=== PATIENT | female | born 1980 | race American Indian/Alaskan Native ===

== ENCOUNTER 2017-10-03 12:25 | Emergency (ER) | payer OTHER ==
--- NOTE | 2017-10-03 12:42 | ER ---
Nurse's Notes [facility] Name: Jodee Rae Age: 37 yrs Sex: Female : 1980 Arrival Date: 10/03/2017 Time: 12:29 Bed Waiting Private MD: None, None Diagnosis: Encounter for screening, unspecified Presentation: 10/03 12:37 Presenting complaint: Patient states: I had a on 09/03 and I want to have the la1 wound checked. Transition of care: patient was not received from another setting of care. Onset of symptoms was October 03, 2017. Initial Sepsis Screen: Does the patient meet any 2 criteria? No. Patient's initial sepsis screen is negative. Does the patient have a suspected source of infection? No. Patient's initial sepsis screen is negative. Care prior to arrival: None. 12:37 Method Of Arrival: Ambulatory la1 12:37 Acuity: GERTRUDIS 5 la1 Historical: - Allergies: 12:38 Lisinopril; cough; la1 12:38 [place] Carbonate; la1 - PMHx: 12:38 Asthma; Bipolar disorder; Depression; Diabetes - IDDM; Hypertension; la1 - Immunization history:: Adult Immunizations up to date. - Social history:: Smoking status: Patient/guardian denies using tobacco. Screenin:39 Abuse screen: Denies threats or abuse. Nutritional screening: No deficits noted. la1 Tuberculosis screening: No symptoms or risk factors identified. Fall Risk None identified. Assessment: 12:38 Reassessment: Patient is alert, oriented x 3, equal unlabored respirations, skin la1 warm/dry/pink. Pain: Denies pain. Derm: wound well approximated without redness swelling or drainage. Vital Signs: 12:38 BP 119 / 81; Pulse 97; Resp 16; Temp 98.1(TE); Pulse Ox 100% on R/A; Weight 87.09 kg; la1 Height 5 ft. 1 in. (154.94 cm); 12:38 Body Mass Index 36.28 (87.09 kg, 154.94 cm) la1 ED Course: 12:29 Patient arrived in ED. mr 12:29 None, None is Private Physician. mr 12:34 Tyrone Joseph PA is PHCP. cp 12:34 Tyrone Sotomayor MD is Attending Physician. cp 12:36 Haleigh Servin FNP-C is PHCP. kb 12:37 Triage completed. la1 12:38 Arm band placed on left wrist. la1 12:39 Patient has correct armband on for positive identification. la1 12:39 No provider procedures requiring assistance completed. Patient did not have IV access la1 during this emergency room visit. Administered Medications: No medications were administered Outcome: 12:39 Medical screen evaluation completed per provider. Patient declined treatment. la1 12:39 Condition: stable 12:39 Instructed on follow up and referral plans. 12:42 Discharge ordered by MD. kb 12:48 Patient left the ED. kb Signatures: Haleigh Servin FNP-C AGRICULTURE WORKER-Ckb Imelda Schmidt mr Liu Pérez, RN RN la1 Tyrone Joseph PA PA cp
--- NOTE | 2017-10-03 12:42 | EDPHYS ---
Physician Documentation [facility] Name: Jodee Rae Age: 37 yrs Sex: Female : 1980 Arrival Date: 10/03/2017 Time: 12:29 Bed Waiting Private MD: None, None ED Physician Tyrone Sotomayor HPI: 10/03 12:40 This 37 yrs old Female presents to ER via Ambulatory with complaints of kb C Section recheck. 12:40 Patient presents to ED for recheck of: surgical incision. The affected area is on the kb suprapubic area. Previous treatment: The patient was initially treated on September 03, 2017, the care was rendered at [facility], Treatment type: The patient's original treatment included incision and closure. Progress: The patient reports excellent improvement in the affected area. There has been resolution, improvement, or non-development of any drainage, fever, pain, redness or swelling. The patient has not experienced similar symptoms in the past. The patient has not recently seen a physician. Pt states her incision from has been bothering her for a while. States it itches and she was worried that it would pop open or that something was wrong so she just wanted to get it looked at. . Historical: - Allergies: 12:38 Lisinopril; cough; la1 12:38 [place] Carbonate; la1 - PMHx: 12:38 Asthma; Bipolar disorder; Depression; Diabetes - IDDM; Hypertension; la1 - Immunization history:: Adult Immunizations up to date. - Social history:: Smoking status: Patient/guardian denies using tobacco. ROS: 12:37 Constitutional: Negative for fever, chills, and weight loss, Cardiovascular: Negative kb for chest pain, palpitations, and edema, Respiratory: Negative for shortness of breath, cough, wheezing, and pleuritic chest pain, Abdomen/GI: Negative for abdominal pain, nausea, vomiting, diarrhea, and constipation, MS/Extremity: Negative for injury and deformity, Neuro: Negative for headache, weakness, numbness, tingling, and seizure. Exam: 12:37 Constitutional: This is a well developed, well nourished patient who is awake, alert, kb and in no acute distress. Head/Face: Normocephalic, atraumatic. Chest/axilla: Normal chest wall appearance and motion. Nontender with no deformity. No lesions are appreciated. Cardiovascular: Regular rate and rhythm with a normal S1 and S2. No gallops, murmurs, or rubs. Normal PMI, no JVD. No pulse deficits. Respiratory: Lungs have equal breath sounds bilaterally, clear to auscultation and percussion. No rales, rhonchi or wheezes noted. No increased work of breathing, no retractions or nasal flaring. Back: No spinal tenderness. No costovertebral tenderness. Full range of motion. MS/ Extremity: Pulses equal, no cyanosis. Neurovascular intact. Full, normal range of motion. Neuro: Awake and alert, GCS 15, oriented to person, place, time, and situation. Cranial nerves II-XII grossly intact. Motor strength 5/5 in all extremities. Sensory grossly intact. Cerebellar exam normal. Normal gait. 12:37 Abdomen/GI: Inspection: scar(s), are noted in the suprapubic area, Bowel sounds: normal, in all quadrants, Palpation: abdomen is soft and non-tender, in all quadrants. 12:37 Skin: Wound recheck: incision noted to suprapubic area. Incision well healed. No drainage, redness, swelling, or warmth noted. . Vital Signs: 12:38 BP 119 / 81; Pulse 97; Resp 16; Temp 98.1(TE); Pulse Ox 100% on R/A; Weight 87.09 kg; la1 Height 5 ft. 1 in. (154.94 cm); 12:38 Body Mass Index 36.28 (87.09 kg, 154.94 cm) la1 MDM: 12:34 Patient medically screened. cp 12:37 Data reviewed: vital signs, nurses notes. Data interpreted: Pulse oximetry: on room air kb is 100 %. Interpretation: normal. Counseling: I had a detailed discussion with the patient and/or guardian regarding: the historical points, exam findings, and any diagnostic results supporting the discharge/admit diagnosis, the need for outpatient follow up, an OB/Gyne specialist, to return to the emergency department if symptoms worsen or persist or if there are any questions or concerns that arise at home. ED course: Educated to follow up with OB that performed . No signs or symptoms of infection noted. . Administered Medications: No medications were administered Disposition: 12:39 Encounter for wound check. kb Disposition: 10/03/17 12:42 Discharged to Home. Impression: Encounter for screening, unspecified. - Condition is Stable. - Medication Reconciliation Form, Thank You Letter, Antibiotic Education, Prescription Opioid Use form. - Follow up: Emergency Department; When: As needed; Reason: Worsening of condition. Follow up: Private Physician; When: 2 - 3 days; Reason: Recheck today's complaints, Continuance of care, Re-evaluation by your physician. Addendum: 10/05/2017 08:53 Co-signature as Attending Physician, Tyrone Sotomayor MD I agree with the assessment and c spicer plan of care. Signatures: Haleigh Servin, GEOPHYSICAL LABORATORY CHIEF-C GEOPHYSICAL LABORATORY CHIEF-Ckb Tyrone Sotomayor MD MD cha Attema, Lee, RN RN la1 Tyrone Joseph PA PA cp
== END 2017-10-03 12:48 | disposition home or self-care (01) ==
LOC: ER 12:25
DX: Z48.00 Encounter for change or removal of nonsurgical wound dressing (principal); I10 Essential (primary) hypertension; Z88.8 Allergy status to other drugs, medicaments and biological substances
CPT/HCPCS: 99281

== ENCOUNTER 2017-10-16 21:36 | Emergency (ER) | payer OTHER ==
[2017-10-16] MEDS ORDERED: NA CHLORIDE 0.9% 1,000 ML ONE (22:12)
[2017-10-16 22:39] LABS: Bicarbonate 25 mEq/L (21-31); Glucose Level 139 mg/dL (65-120); Lipase 22 U/L (22-51); Potassium 3.6 mEq/L (3.6-5.0); Sodium Level 137 mEq/L (135-145)
[2017-10-16 22:43] LABS: Absolute Lymphocytes (CBC) 1.1 K/uL (0.7-4.9); Absolute Monocytes 0.5 K/uL (0.1-1.3); Absolute Neutrophil 4.4 K/uL (1.8-8.0); Basophils % 0.5 % (0-1.3); Eosinophils % 2.1 % (0-4.4); Hematocrit 35.3 % (36.0-45.0); Lymphocytes % 17.9 % (15.3-44.8); MCH 23.3 pg (27.0-35.0); MCV 72.8 fL (80-100); MPV 8.9 fL (7.6-11.3); Monocytes % 7.4 % (3.3-12.3); RBC Red Blood Cell Count 4.85 M/uL (3.86-4.86)
[2017-10-16 22:45] LABS: ALT/SGPT 33 IU/L (10-60); AST/SGOT 34 IU/L (10-42); Albumin 4.2 g/dL (3.2-5.5); Alkaline Phosphatase 63 IU/L (42-121); Amylase Level 43 U/L (28-100); BUN Blood Urea Nitrogen 12 mg/dL (6-20); Bilirubin Direct 0.1 mg/dL (0-0.2); Bilirubin Total 0.4 mg/dL (0.3-1.2); Protein, Total 8.5 g/dL (6.0-8.3)
[2017-10-16 23:10] LABS: Urine Blood NEGATIVE (NEG); Urine Glucose NEGATIVE (NEG); Urine Protein 1+ (NEG); Urine Specific Gravity >1.030 (1.005-1.030); Urine pH 5.5 (5.0-7.0)
--- NOTE | 2017-10-16 23:19 | EDPHYS ---
Physician Documentation [facility] Name: Jodee Rae Age: 37 yrs Sex: Female : 1980 Arrival Date: 10/16/2017 Time: 21:37 Bed 26 Private MD: ED Physician Evan Brown HPI: 10/16 23:14 This 37 yrs old Female presents to ER via Ambulatory with complaints of pm1 Nausea/Vomiting/Diarrhea. 23:14 The patient presents to the emergency department with nausea, vomiting, 1 times since pm1 the onset of symptoms, described as undigested food, diarrhea, Multiple times. Onset: The symptoms/episode began/occurred 2 day(s) ago. Possible causes: bad food exposure, eggs. The symptoms are aggravated by food , The symptoms are alleviated by nothing. Associated signs and symptoms: Pertinent negatives: abdominal pain, dysuria, fever. Severity of symptoms: in the emergency department the symptoms are unchanged. The patient has not experienced similar symptoms in the past. The patient has not recently seen a physician. Patient has been taking some Zofran at home for her nausea. Patient reports onset of symptoms after eating egg salad she had made the day before. 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 - Social history:: Smoking status: Patient/guardian denies using tobacco. ROS: 23:14 Constitutional: Negative for fever, chills, and weight loss, Eyes: Negative for injury, pm1 pain, redness, and discharge, ENT: Negative for injury, pain, and discharge, Neck: Negative for injury, pain, and swelling, Cardiovascular: Negative for chest pain, palpitations, and edema, Respiratory: Negative for shortness of breath, cough, wheezing, and pleuritic chest pain, Back: Negative for injury and pain, : Negative for injury, bleeding, discharge, and swelling, MS/Extremity: Negative for injury and deformity, Skin: Negative for injury, rash, and discoloration, Neuro: Negative for headache, weakness, numbness, tingling, and seizure. 23:14 Abdomen/GI: Positive for nausea, vomiting, and diarrhea, Negative for abdominal pain, black/tarry stool, rectal bleeding. Exam: 23:14 Constitutional: This is a well developed, well nourished patient who is awake, alert, pm1 and in no acute distress. Head/Face: Normocephalic, atraumatic. Eyes: Pupils equal round and reactive to light, extra-ocular motions intact. Lids and lashes normal. Conjunctiva and sclera are non-icteric and not injected. Cornea within normal limits. Periorbital areas with no swelling, redness, or edema. ENT: Nares patent. No nasal discharge, no septal abnormalities noted. Tympanic membranes are normal and external auditory canals are clear. Oropharynx with no redness, swelling, or masses, exudates, or evidence of obstruction, uvula midline. Mucous membranes moist. Neck: Trachea midline, no thyromegaly or masses palpated, and no cervical lymphadenopathy. Supple, full range of motion without nuchal rigidity, or vertebral point tenderness. No Meningismus. Chest/axilla: Normal chest wall appearance and motion. Nontender with no deformity. No lesions are appreciated. Cardiovascular: Regular rate and rhythm with a normal S1 and S2. No gallops, murmurs, or rubs. Normal PMI, no JVD. No pulse deficits. Respiratory: Lungs have equal breath sounds bilaterally, clear to auscultation and percussion. No rales, rhonchi or wheezes noted. No increased work of breathing, no retractions or nasal flaring. 23:14 Back: No spinal tenderness. No costovertebral tenderness. Full range of motion. Skin: Warm, dry with normal turgor. Normal color with no rashes, no lesions, and no evidence of cellulitis. MS/ Extremity: Pulses equal, no cyanosis. Neurovascular intact. Full, normal range of motion. 23:14 Abdomen/GI: Inspection: abdomen appears normal, Bowel sounds: normal, Palpation: abdomen is soft and non-tender. 23:14 Neuro: Orientation: is normal, Motor: is normal, Sensation: is normal, no obvious gross deficits. Vital Signs: 21:42 BP 138 / 84; Pulse 111; Resp 19; Temp 97.0; Pulse Ox 99% on R/A; Weight 86.64 kg; aj Height 5 ft. 1 in. (154.94 cm); 22:20 BP 104 / 83; Pulse 106; Resp 18; Pulse Ox 100% on R/A; mt 22:51 BP 111 / 79; Pulse 100; Resp 18; Pulse Ox 100% on R/A; mt 23:36 BP 128 / 96; Pulse 99; Resp 16; Pulse Ox 99% on R/A; kr2 21:42 Body Mass Index 36.09 (86.64 kg, 154.94 cm) aj MDM: 22:20 Patient medically screened. pm1 23:14 Data reviewed: vital signs. Data interpreted: Pulse oximetry: on room air is 100 %. pm1 Interpretation: normal. Counseling: I had a detailed discussion with the patient and/or guardian regarding: the historical points, exam findings, and any diagnostic results supporting the discharge/admit diagnosis, lab results, the need for outpatient follow up, to return to the emergency department if symptoms worsen or persist or if there are any questions or concerns that arise at home. 10/16 22:07 Order name: Amylase, Serum; Complete Time: 23:13 pm1 10/16 22:07 Order name: Basic Metabolic Panel; Complete Time: 23:13 pm10/16 22:07 Order name: CBC with Diff; Complete Time: 23:13 pm1 10/16 22:07 Order name: Creatinine for Radiology; Complete Time: 23:13 pm10/16 22:07 Order name: Hepatic Function; Complete Time: 23:13 pm10/16 22:07 Order name: Lipase; Complete Time: 23:13 pm10/16 22:07 Order name: Urine Test (obtain specimen); Complete Time: 22:19 pm10/16 22:07 Order name: IV Saline Lock; Complete Time: 22:20 pm10/16 22:07 Order name: Labs collected and sent; Complete Time: 22:20 pm1 10/16 22:07 Order name: Urine Dipstick-Ancillary (obtain specimen); Complete Time: 22:19 pm10/16 22:23 Order name: Urine Dipstick--Ancillary (enter results); Complete Time: 23:13 rg2 10/16 22:24 Order name: Urine --Ancillary (enter results); Complete Time: 23:13 rg2 Administered Medications: 22:25 Drug: NS 0.9% 1000 ml Route: IV; Rate: 1000 ml; Site: right antecubital; kr2 23:34 Follow up: Response: No adverse reaction; IV Status: Completed infusion kr2 Disposition: 10/17 00:32 Co-signature as Attending Physician, Marcial Hawkins PULVI MIXER OPERATOR I agree with the assessment and tw4 plan of care. Disposition: 10/16/17 23:18 Discharged to Home. Impression: Diarrhea, unspecified, Nausea and vomiting. - Condition is Stable. - Discharge Instructions: Food Choices to Help Relieve Diarrhea, Adult, Diarrhea, Food Poisoning, Nausea and Vomiting, Viral Gastroenteritis. - Prescriptions for promethazine 25 mg Oral Tablet - take 1 tablet by ORAL route every 6 hours As needed; 20 tablet. - Medication Reconciliation Form, Thank You Letter form. - Follow up: Emergency Department; When: As needed; Reason: Worsening of condition. Follow up: Private Physician; When: 2 - 3 days; Reason: Recheck today's complaints, Continuance of care, Re-evaluation by your physician. - Problem is new. - Symptoms have improved. Signatures: Dispatcher [employer] EDMS Deanna Finch RN RN aj Marinas, Patrick, NP PULVI MIXER OPERATOR pm1 Adry Bunch RN RN kr2 Evan Brown MD MD tw4 Corrections: (The following items were deleted from the chart) 10/16 23:37 23:18 10/16/2017 23:18 Discharged to Home. Impression: Diarrhea, unspecified; Nausea kr2 and vomiting. Condition is Stable. Forms are Medication Reconciliation Form, Thank You Letter, Antibiotic Education, Prescription Opioid Use. Follow up: Emergency Department; When: As needed; Reason: Worsening of condition. Follow up: Private Physician; When: 2 - 3 days; Reason: Recheck today's complaints, Continuance of care, Re-evaluation by your physician. Problem is new. Symptoms have improved. pm1
--- NOTE | 2017-10-16 23:19 | ER ---
Nurse's Notes [facility] Name: Jodee Rae Age: 37 yrs Sex: Female : 1980 Arrival Date: 10/16/2017 Time: 21:37 Bed 26 Private MD: Diagnosis: Diarrhea, unspecified;Nausea and vomiting Presentation: 10/16 21:41 Presenting complaint: Patient states: N/V/D for 2 days. Transition of care: patient was aj not received from another setting of care. Onset of symptoms was October 15, 2017. Care prior to arrival: None. 21:41 Method Of Arrival: Ambulatory aj 21:41 Acuity: GERTRUDIS 3 aj 21:53 Initial Sepsis Screen: Does the patient meet any 2 criteria? No. Patient's initial kr2 sepsis screen is negative. Does the patient have a suspected source of infection? No. Patient's initial sepsis screen is negative. Triage Assessment: 21:42 General: Appears in no apparent distress. comfortable, Behavior is calm, cooperative, aj appropriate for age. Pain: Denies pain. Neuro: Level of Consciousness is awake, alert, obeys commands, Oriented to person, place, time, situation, Appropriate for age. Respiratory: Airway is patent Respiratory effort is even, unlabored, Respiratory pattern is regular, symmetrical. GI: Reports diarrhea, nausea, vomiting. Derm: Skin is intact, is healthy with good turgor, Skin is pink, warm \T\ dry. normal. 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 - Social history:: Smoking status: Patient/guardian denies using tobacco. Screenin:52 Abuse screen: Denies threats or abuse. Denies injuries from another. Nutritional kr2 screening: No deficits noted. Tuberculosis screening: No symptoms or risk factors identified. Fall Risk None identified. Assessment: 21:51 General: Appears in no apparent distress. comfortable, well groomed, well developed, kr2 well nourished, Behavior is calm, cooperative. Pain: Denies pain. Neuro: Level of Consciousness is awake, alert, obeys commands, Oriented to person, place, time, situation, Appropriate for age. Cardiovascular: Reports fatigue, Capillary refill < 3 seconds in bilateral fingers Patient's skin is warm and dry. Respiratory: Airway is patent Respiratory effort is even, unlabored, Respiratory pattern is regular, symmetrical. GI: Abdomen is flat, non-distended, Abd is soft and non tender X 4 quads. Reports diarrhea, nausea, vomiting. : No signs and/or symptoms were reported regarding the genitourinary system. EENT: Oral mucosa is moist. Derm: Skin is intact, is healthy with good turgor, Skin is dry, Skin is pale, Skin temperature is warm. 23:34 Reassessment: Patient appears in no apparent distress at this time. Patient and/or kr2 family updated on plan of care and expected duration. Pain level reassessed. Patient is alert, oriented x 3, equal unlabored respirations, skin warm/dry/pink. Patient denies pain at this time. Patient states feeling better. Vital Signs: 21:42 BP 138 / 84; Pulse 111; Resp 19; Temp 97.0; Pulse Ox 99% on R/A; Weight 86.64 kg; aj Height 5 ft. 1 in. (154.94 cm); 22:20 BP 104 / 83; Pulse 106; Resp 18; Pulse Ox 100% on R/A; mt 22:51 BP 111 / 79; Pulse 100; Resp 18; Pulse Ox 100% on R/A; mt 23:36 BP 128 / 96; Pulse 99; Resp 16; Pulse Ox 99% on R/A; kr2 21:42 Body Mass Index 36.09 (86.64 kg, 154.94 cm) ED Course: 21:37 Patient arrived in ED. ds1 21:42 Triage completed. aj 21:42 Arm band placed on right wrist. Patient placed in an exam room. aj 21:51 Adry Bunch, RN is Primary Nurse. kr2 21:53 Patient has correct armband on for positive identification. Bed in low position. Call kr2 light in reach. Side rails up X 1. Pulse ox on. NIBP on. Door closed. Warm blanket given. Head of bed elevated. 21:58 Marcial Hawkins NP is PHCP. pm1 21:58 Evan Brown MD is Attending Physician. pm1 22:20 Inserted saline lock: 20 gauge in right antecubital area, using aseptic technique. kr2 Blood collected. 23:34 No provider procedures requiring assistance completed. IV discontinued, intact, kr2 bleeding controlled, No redness/swelling at site. Pressure dressing applied. Administered Medications: 22:25 Drug: NS 0.9% 1000 ml Route: IV; Rate: 1000 ml; Site: right antecubital; kr2 23:34 Follow up: Response: No adverse reaction; IV Status: Completed infusion kr2 Outcome: 23:18 Discharge ordered by . pm1 23:36 Discharged to home ambulatory. kr2 23:36 Condition: good 23:36 Discharge instructions given to patient, Instructed on discharge instructions, follow up and referral plans. medication usage, Demonstrated understanding of instructions, follow-up care, medications, Prescriptions given X 1. 23:37 Patient left the ED. kr2 Signatures: Deanna Finch RN RN Mary Parada ds1 Marcial Hawkins NP SHEET METAL WORKER APPRENTICE pm1 Zoraida Churchill mt, Karey, RN RN kr2
== END 2017-10-16 23:37 | disposition home or self-care (01) ==
LOC: ER 21:36
DX: R19.7 Diarrhea, unspecified (principal); I10 Essential (primary) hypertension; E11.9 Type 2 diabetes mellitus without complications; Z79.4 Long term (current) use of insulin; Z88.8 Allergy status to other drugs, medicaments and biological substances
CPT/HCPCS: 36415; 80048; 80076; 81003; 81025; 82150; 83690; 85025; 96360; 99284; J7030

== ENCOUNTER 2018-03-01 20:30 | Emergency (ER) | payer OTHER ==
--- NOTE | 2018-03-01 21:14 | EDPHYS ---
Physician Documentation [facility] Name: Jodee Rae Age: 37 yrs Sex: Female : 1980 Arrival Date: 03/01/2018 Time: 20:33 Bed 23 Private MD: ED Physician Tyrone Sotomayor HPI: 03/01 21:16 This 37 yrs old Female presents to ER via Ambulatory with complaints of snw Shortness Of Breath. 21:16 The patient has shortness of breath during emotionally upset. Onset: The snw symptoms/episode began/occurred suddenly, at 17:30. Duration: The symptoms are continuous, but are steadily getting better. The patient's shortness of breath. Associated signs and symptoms: Pertinent positives: shortness of breath, panting. Severity of symptoms: At their worst the symptoms were moderate severe. The patient has experienced a previous episode, and the symptoms today are exactly the same. last week per PCP. Pt states after her child was born she had episodes of panic. States those episodes just went away. States today she was "thinking too much" and she started to get short of breath and was panting. On my arrival to the room she states she is back to normal and is doing okay. States she was having a panic attack. Declines FSBS as she just ate and has not taken her glucophage. Offered dose of glucophage and pt states she has it at home.. 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 mg2 Historical: - Allergies: 20:45 Lisinopril; cough; ak1 20:45 [place] Carbonate; ak1 - Home Meds: 20:45 metformin 1,000 mg Oral tab 1 tab 2 times per day [Active]; gabapentin 300 mg oral cap ak1 1 cap 3 times per day [Active]; hydroxyzine HCl 25 mg Oral tab 1 tab 2 times daily [Active]; niefpine [Active]; Iron CR Oral [Active]; Naproxen Oral [Active]; queitapine [Active]; loratadine 10 mg oral tab [Active]; Lantus 34 units daily Sub-Q [Active]; - PMHx: 20:45 Asthma; Bipolar disorder; Depression; Diabetes - IDDM; Hypertension; ak1 - PSHx: 20:45 ; ak1 - Immunization history:: Adult Immunizations unknown. - Social history:: Smoking status: Patient/guardian denies using tobacco. - Ebola Screening: : No symptoms or risks identified at this time. ROS: 21:14 Constitutional: Negative for fever, chills, and weight loss, Eyes: Negative for injury, snw pain, redness, and discharge, ENT: Negative for injury, pain, and discharge, Neck: Negative for injury, pain, and swelling, Cardiovascular: Negative for chest pain, palpitations, and edema, Respiratory: Negative for shortness of breath, cough, wheezing, and pleuritic chest pain, Abdomen/GI: Negative for abdominal pain, nausea, vomiting, diarrhea, and constipation, Back: Negative for injury and pain, : Negative for injury, bleeding, discharge, and swelling, MS/Extremity: Negative for injury and deformity, Skin: Negative for injury, rash, and discoloration, Neuro: Negative for headache, weakness, numbness, tingling, and seizure. 21:14 Psych: Positive for anxiety, panic attacks. Exam: 21:14 Constitutional: This is a well developed, well nourished patient who is awake, alert, snw and in no acute distress. Head/Face: Normocephalic, atraumatic. Eyes: Pupils equal round and reactive to light, extra-ocular motions intact. Lids and lashes normal. Conjunctiva and sclera are non-icteric and not injected. Cornea within normal limits. Periorbital areas with no swelling, redness, or edema. ENT: Nares patent. No nasal discharge, no septal abnormalities noted. Tympanic membranes are normal and external auditory canals are clear. Oropharynx with no redness, swelling, or masses, exudates, or evidence of obstruction, uvula midline. Mucous membranes moist. Neck: Trachea midline, no thyromegaly or masses palpated, and no cervical lymphadenopathy. Supple, full range of motion without nuchal rigidity, or vertebral point tenderness. No Meningismus. Chest/axilla: Normal chest wall appearance and motion. Nontender with no deformity. No lesions are appreciated. Cardiovascular: Regular rate and rhythm with a normal S1 and S2. No gallops, murmurs, or rubs. Normal PMI, no JVD. No pulse deficits. Respiratory: Lungs have equal breath sounds bilaterally, clear to auscultation and percussion. No rales, rhonchi or wheezes noted. No increased work of breathing, no retractions or nasal flaring. Abdomen/GI: Soft, non-tender, with normal bowel sounds. No distension or tympany. No guarding or rebound. No evidence of tenderness throughout. Back: No spinal tenderness. No costovertebral tenderness. Full range of motion. Skin: Warm, dry with normal turgor. Normal color with no rashes, no lesions, and no evidence of cellulitis. MS/ Extremity: Pulses equal, no cyanosis. Neurovascular intact. Full, normal range of motion. Neuro: Awake and alert, GCS 15, oriented to person, place, time, and situation. Cranial nerves II-XII grossly intact. Motor strength 5/5 in all extremities. Sensory grossly intact. Cerebellar exam normal. Normal gait. Psych: Awake, alert, with orientation to person, place and time. Behavior, mood, and affect are within normal limits. Vital Signs: 20:45 BP 140 / 95; Pulse 95; Resp 18; Temp 98; Pulse Ox 97% on R/A; Weight 90.72 kg (R); ak1 Height 5 ft. 1 in. (154.94 cm); Pain 0/10; 21:29 BP 130 / 90; Pulse 90; Resp 18; Pulse Ox 100% on R/A; Pain 0/10; mg2 20:45 Body Mass Index 37.79 (90.72 kg, 154.94 cm) ak1 MDM: 20:49 Patient medically screened. bre 21:15 Data reviewed: vital signs, nurses notes. Data interpreted: Pulse oximetry: on room air snw is 97 %. Interpretation: normal. Counseling: I had a detailed discussion with the patient and/or guardian regarding: the historical points, exam findings, and any diagnostic results supporting the discharge/admit diagnosis, the presence of at least one elevated blood pressure reading (>120/80) during this emergency department visit, the need for outpatient follow up, to return to the emergency department if symptoms worsen or persist or if there are any questions or concerns that arise at home. Special discussion: I have referred the patient to see his PCP for further evaluation of high blood pressure. Based on the history and exam findings, there is no indication for further emergent testing or inpatient evaluation. I discussed with the patient/guardian the need to see the primary care provider for further evaluation of the symptoms. I discussed with the patient/guardian the need to see the psychiatrist for further evaluation of the symptoms. Administered Medications: No medications were administered Disposition: 03/02 07:53 Co-signature as Attending Physician, Tyrone Sotomayor MD I agree with the assessment and bre plan of care. Disposition: 03/01/18 21:13 Discharged to Home. Impression: Panic disorder [episodic paroxysmal anxiety] without agoraphobia. - Condition is Stable. - Discharge Instructions: Panic Attacks. - Medication Reconciliation Form, Thank You Letter, Antibiotic Education, Prescription Opioid Use form. - Follow up: Private Physician; When: 2 - 3 days; Reason: Recheck today's complaints, Continuance of care, Re-evaluation by your physician. Follow up: Emergency Department; When: As needed; Reason: Worsening of condition. Signatures: Tyrone Sotomayor MD MD cha Therrien, Shelly, WHEEL INSTALLER-C WHEEL INSTALLER-Csnw Radha Spann RN RN ak1 Juan Manuel Fields RN RN mg2 Corrections: (The following items were deleted from the chart) 03/01 21:29 21:13 03/01/2018 21:13 Discharged to Home. Impression: Panic disorder [episodic mg2 paroxysmal anxiety] without agoraphobia. Condition is Stable. Forms are Medication Reconciliation Form, Thank You Letter, Antibiotic Education, Prescription Opioid Use. Follow up: Private Physician; When: 2 - 3 days; Reason: Recheck today's complaints, Continuance of care, Re-evaluation by your physician. Follow up: Emergency Department; When: As needed; Reason: Worsening of condition. snw
--- NOTE | 2018-03-01 21:14 | ER ---
Nurse's Notes [facility] Name: Jodee Rae Age: 37 yrs Sex: Female : 1980 Arrival Date: 03/01/2018 Time: 20:33 Bed 23 Private MD: Diagnosis: Panic disorder [episodic paroxysmal anxiety] without agoraphobia Presentation: 03/01 20:41 Presenting complaint: states: anxiety attacks since august 2017. pt refuses to ak1 talk in triage. pt c/o SOB with anxiety attacks at 1700 today, no resp distress noted in triage. Transition of care: patient was not received from another setting of care. Onset of symptoms is unknown. Risk Assessment: Do you want to hurt yourself or someone else? Patient reports no desire to harm self or others. Initial Sepsis Screen: Does the patient meet any 2 criteria? No. Patient's initial sepsis screen is negative. Does the patient have a suspected source of infection? No. Patient's initial sepsis screen is negative. Care prior to arrival: None. 20:41 Method Of Arrival: Ambulatory ak1 20:41 Acuity: GERTRUDIS 3 ak1 Triage Assessment: 21:29 General: Appears in no apparent distress. Respiratory: Reports shortness of breath mg2 Onset: The symptoms/episode began/occurred gradually, the patient has mild shortness of breath. 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 mg2 Historical: - Allergies: 20:45 Lisinopril; cough; ak1 20:45 [place] Carbonate; ak1 - Home Meds: 20:45 metformin 1,000 mg Oral tab 1 tab 2 times per day [Active]; gabapentin 300 mg oral cap ak1 1 cap 3 times per day [Active]; hydroxyzine HCl 25 mg Oral tab 1 tab 2 times daily [Active]; niefpine [Active]; Iron CR Oral [Active]; Naproxen Oral [Active]; queitapine [Active]; loratadine 10 mg oral tab [Active]; Lantus 34 units daily Sub-Q [Active]; - PMHx: 20:45 Asthma; Bipolar disorder; Depression; Diabetes - IDDM; Hypertension; ak1 - PSHx: 20:45 ; ak1 - Immunization history:: Adult Immunizations unknown. - Social history:: Smoking status: Patient/guardian denies using tobacco. - Ebola Screening: : No symptoms or risks identified at this time. Screenin:27 Abuse screen: Denies threats or abuse. Denies injuries from another. Nutritional mg2 screening: No deficits noted. Tuberculosis screening: No symptoms or risk factors identified. Fall Risk None identified. Assessment: 21:26 General: Appears in no apparent distress. comfortable, Behavior is calm, cooperative. mg2 Pain: Denies pain. Neuro: Level of Consciousness is awake, alert, obeys commands, Oriented to person, place, time, situation. Cardiovascular: Capillary refill < 3 seconds Patient's skin is warm and dry. Rhythm is regular. Respiratory: Airway is patent Respiratory effort is even, unlabored. GI: No signs and/or symptoms were reported involving the gastrointestinal system. : No signs and/or symptoms were reported regarding the genitourinary system. EENT: No signs and/or symptoms were reported regarding the EENT system. Derm: Skin is intact, Skin is pink, warm \T\ dry. normal. Musculoskeletal: No signs and/or symptoms reported regarding the musculoskeletal system. 21:28 Respiratory: Breath sounds are clear. mg2 Vital Signs: 20:45 BP 140 / 95; Pulse 95; Resp 18; Temp 98; Pulse Ox 97% on R/A; Weight 90.72 kg (R); ak1 Height 5 ft. 1 in. (154.94 cm); Pain 0/10; 21:29 BP 130 / 90; Pulse 90; Resp 18; Pulse Ox 100% on R/A; Pain 0/10; mg2 20:45 Body Mass Index 37.79 (90.72 kg, 154.94 cm) ak1 ED Course: 20:33 Patient arrived in ED. am2 20:42 Triage completed. ak1 20:45 Arm band placed on Patient placed in an exam room, on a stretcher, Patient notified of ak1 wait time. 20:48 Tyrone Sotomayor MD is Attending Physician. [facility] 20:49 Marion Stone FNP-C is [facility]. snw 21:16 Juan Manuel Fields, FRANKIE is Primary Nurse. mg2 21:27 No provider procedures requiring assistance completed. Patient did not have IV access mg2 during this emergency room visit. 21:29 Patient has correct armband on for positive identification. mg2 Administered Medications: No medications were administered Outcome: 21:13 Discharge ordered by . snw 21:27 Discharged to home ambulatory. mg2 21:27 Condition: good 21:27 Discharge instructions given to patient, Instructed on discharge instructions, follow up and referral plans. Demonstrated understanding of instructions, follow-up care. 21:29 Patient left the ED. mg2 Signatures: Tyrone Sotomayor MD MD cha Therrien, Shelly, TRAFFIC SAFETY ADMINISTRATOR-C TRAFFIC SAFETY ADMINISTRATOR-Csnw Radha Spann, RN RN [email or web address] Deanna Mari Michele, RN RN mg2
== END 2018-03-01 21:29 | disposition home or self-care (01) ==
LOC: ER 20:30
DX: F41.0 Panic disorder [episodic paroxysmal anxiety] (principal); I10 Essential (primary) hypertension; E11.9 Type 2 diabetes mellitus without complications; J45.909 Unspecified asthma, uncomplicated; F31.9 Bipolar disorder, unspecified; Z88.8 Allergy status to other drugs, medicaments and biological substances
CPT/HCPCS: 99281

== ENCOUNTER 2018-10-04 12:19 | Emergency (ER) | payer OTHER ==
--- OUTSIDE RECORDS SUMMARY | 2018-10-04 12:21 | XMS REPORT ---
:1980 [facility] [address] [place] [address] Care Team Providers Name Role Phone Unavailable Unavailable Unavailable Problems This patient has no known problems. Allergies, Adverse Reactions, Alerts This patient has no known allergies or adverse reactions. Medications This patient has no known medications.
--- NOTE | 2018-10-04 12:22 | ER ---
Nurse's Notes [facility] Name: Jodee Rae Age: 38 yrs Sex: Female : 1980 Arrival Date: 10/04/2018 Time: 12:19 Bed Waiting Private MD: Diagnosis: ED Course: 10/04 12:19 Patient arrived in ED. as 12:22 John Langley MD is Attending Physician. aa5 Administered Medications: No medications were administered Outcome: 12:22 Patient left the ED. aa5 Signatures: Zaira Garsia Audri, RN RN aa5
== END 2018-10-04 12:22 | disposition left against medical advice (07) ==
LOC: ER 12:19
DX: Z53.21 Procedure and treatment not carried out due to patient leaving prior to being seen by health care provider (principal)

== ENCOUNTER 2018-10-27 23:14 | Emergency (ER) | payer OTHER ==
--- OUTSIDE RECORDS SUMMARY | 2018-10-27 23:16 | XMS REPORT ---
:1980 [facility] [address] [place] [address] Dr. Solorzano. [address] [place] [id number] Care Team Providers Name Role Phone Unavailable Unavailable Unavailable Problems This patient has no known problems. Allergies, Adverse Reactions, Alerts This patient has no known allergies or adverse reactions. Medications This patient has no known medications.
--- NOTE | 2018-10-28 00:46 | ER ---
Nurse's Notes [facility] Name: Jodee Rae Age: 38 yrs Sex: Female : 1980 Arrival Date: 10/27/2018 Time: 23:16 Bed 8 Private MD: Diagnosis: Otitis externa in other diseases classified elsewhere, left ear;Otitis media, unspecified, left ear Presentation: 10/27 23:28 Presenting complaint: Patient states: My right ear started hurting today. It feels like ed1 it is clogged up. I called my doctor but they couldn't see me until tomorrow so I came here. Transition of care: patient was not received from another setting of care. Onset of symptoms was October 27, 2018. Risk Assessment: Do you want to hurt yourself or someone else? Patient reports no desire to harm self or others. Initial Sepsis Screen: Does the patient meet any 2 criteria? No. Patient's initial sepsis screen is negative. Does the patient have a suspected source of infection? No. Patient's initial sepsis screen is negative. Care prior to arrival: None. 23:28 Method Of Arrival: Ambulatory ed1 23:28 Acuity: GERTRUDIS 4 ed1 Triage Assessment: 23:31 General: Appears uncomfortable, Behavior is calm, cooperative, Pt eating during triage. ed1 Pain: Complains of pain in right ear Pain currently is 7 out of 10 on a pain scale. EENT: Reports pain in right ear when swallowing. 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 ed1 Historical: - Allergies: 23:31 Lisinopril; cough; ed1 23:31 [place] Carbonate; ed1 - Home Meds: 23:31 metformin 1,000 mg Oral tab 1 tab 2 times per day [Active]; gabapentin 300 mg Oral cap ed1 1 cap 3 times per day [Active]; hydroxyzine HCl 25 mg Oral tab 1 tab 2 times daily [Active]; Levemir 100 unit/mL subcutaneous soln 80 unit daily [Active]; Seroquel 200 mg Oral tab 1 tab nightly [Active]; citalopram oral once daily [Active]; - PMHx: 23:31 Asthma; Bipolar disorder; Depression; Diabetes - IDDM; Hypertension; ed1 - PSHx: 23:31 ; ed1 - Immunization history:: Adult Immunizations up to date. - Social history:: Smoking status: Patient uses tobacco products, denies chronic smoking, but will smoke occasionally. - Ebola Screening: : Patient negative for fever greater than or equal to 101.5 degrees Fahrenheit, and additional compatible Ebola Virus Disease symptoms Patient denies exposure to infectious person Patient denies travel to an Ebola-affected area in the 21 days before illness onset No symptoms or risks identified at this time. Screenin/23 00:16 Abuse screen: Denies threats or abuse. Denies injuries from another. Nutritional ak1 screening: No deficits noted. Tuberculosis screening: No symptoms or risk factors identified. Fall Risk None identified. Assessment: 00:18 General: Appears in no apparent distress. Behavior is calm, cooperative. Pain: ak1 Complains of pain in right ear. Neuro: No deficits noted. Cardiovascular: No deficits noted. Respiratory: No deficits noted. GI: No signs and/or symptoms were reported involving the gastrointestinal system. : No signs and/or symptoms were reported regarding the genitourinary system. EENT: Reports pain in right ear since today. pt used her sister's ear drops that decreased the pain "a little, but clogged up my ear." pt denies taking any OTC medications. pt stated she called her PCP who could not see her until . Derm: No signs and/or symptoms reported regarding the dermatologic system. Musculoskeletal: No signs and/or symptoms reported regarding the musculoskeletal system. 00:55 Reassessment: Patient appears in no apparent distress at this time. No changes from ak1 previously documented assessment. Patient and/or family updated on plan of care and expected duration. Pain level reassessed. Patient is alert, oriented x 3, equal unlabored respirations, skin warm/dry/pink. pt waiting on mother to come pick her up. Vital Signs: 10/27 23:31 BP 147 / 71; Pulse 93; Resp 18; Temp 97.9(TE); Pulse Ox 96% on R/A; Weight 90.72 kg; ed1 Height 5 ft. 1 in. (154.94 cm); Pain 7/10; 23:31 Body Mass Index 37.79 (90.72 kg, 154.94 cm) ed1 ED Course: 23:16 Patient arrived in ED. es 23:29 Triage completed. ed1 23:31 Arm band placed on right wrist. ed1 05/ 00:14 Tyrone Joseph PA is PHCP. cp 00:14 John Langley MD is Attending Physician. cp 00:16 Radha Spann, RN is Primary Nurse. ak1 00:16 Patient has correct armband on for positive identification. ak1 00:20 No provider procedures requiring assistance completed. ak1 00:45 Brigida Jorgensen MD is Referral Physician. cp 01:06 Patient did not have IV access during this emergency room visit. ak1 Administered Medications: 00:53 Drug: Ibuprofen 800 mg Route: PO; ak1 00:54 Follow up: Response: No adverse reaction; Medication administered at discharge. ak1 00:53 Drug: Cipro 500 mg Route: PO; ak1 00:54 Follow up: Response: No adverse reaction; Medication administered at discharge. ak1 00:54 Drug: Tylenol #3 (300 mg-30 mg) 2 tabs Route: PO; ak1 00:54 Follow up: Response: No adverse reaction; Medication administered at discharge. ak1 Outcome: 00:46 Discharge ordered by MD. cp 00:56 Discharged to home ambulatory, with family. ak1 00:56 Condition: good 00:56 Discharge instructions given to patient, Instructed on discharge instructions, follow up and referral plans. no drinking with medication, no driving heavy equipment, medication usage, Demonstrated understanding of instructions, follow-up care, medications, Prescriptions given X 4. 01:06 Patient left the ED. ak1 Signatures: Brenda Madison Erika, RN RN ed1 Radha Spann RN RN ak1 Tyrone Joseph PA PA cp
--- NOTE | 2018-10-28 00:46 | EDPHYS ---
Physician Documentation [facility] Name: Jodee Rae Age: 38 yrs Sex: Female : 1980 Arrival Date: 10/27/2018 Time: 23:16 Bed 8 Private MD: ED Physician John Langlye HPI: 10/28 00:39 This 38 yrs old Female presents to ER via Ambulatory with complaints of Ear cp Pain. 00:39 The patient presents with pain, that is acute, swelling, tenderness. The complaints cp affect the left ear. Onset: The symptoms/episode began/occurred today. Modifying factors: the symptoms are aggravated by pulling on ears. Associated signs and symptoms: Pertinent negatives: fever, lightheadedness, sinus trouble, sore throat, vertigo, vomiting. Severity of symptoms: in the emergency department the symptoms are unchanged despite home interventions. 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 23:31 LMP 08/2018 ed1 Historical: - Allergies: 23:31 Lisinopril; cough; ed1 23:31 [place] Carbonate; ed1 - Home Meds: 23:31 metformin 1,000 mg Oral tab 1 tab 2 times per day [Active]; gabapentin 300 mg Oral cap ed1 1 cap 3 times per day [Active]; hydroxyzine HCl 25 mg Oral tab 1 tab 2 times daily [Active]; Levemir 100 unit/mL subcutaneous soln 80 unit daily [Active]; Seroquel 200 mg Oral tab 1 tab nightly [Active]; citalopram oral once daily [Active]; - PMHx: 23:31 Asthma; Bipolar disorder; Depression; Diabetes - IDDM; Hypertension; ed1 - PSHx: 23:31 ; ed1 - Immunization history:: Adult Immunizations up to date. - Social history:: Smoking status: Patient uses tobacco products, denies chronic smoking, but will smoke occasionally. - Ebola Screening: : Patient negative for fever greater than or equal to 101.5 degrees Fahrenheit, and additional compatible Ebola Virus Disease symptoms Patient denies exposure to infectious person Patient denies travel to an Ebola-affected area in the 21 days before illness onset No symptoms or risks identified at this time. ROS: 10/28 00:40 Eyes: Negative for injury, pain, redness, and discharge. cp Constitutional: Negative for body aches, chills, fever, poor PO intake. ENT: Positive for drainage from ear(s), ear pain, Negative for sinus congestion, sinus pain, sore throat, difficulty swallowing, difficulty handling secretions. Respiratory: Negative for cough, wheezing. Abdomen/GI: Negative for abdominal pain, nausea, vomiting, and diarrhea. Skin: Negative for rash. Neuro: Negative for altered mental status, headache, weakness. All other systems are negative. Exam: 00:41 Constitutional: The patient appears alert, awake, non-toxic, well developed, well cp nourished, uncomfortable. 00:41 Head/face: Noted is swelling, that is mild, of the left ear, Sinus tenderness, is not appreciated. 00:41 Eyes: Periorbital structures: appear normal, Conjunctiva: normal, no exudate, no injection, Sclera: no appreciated abnormality, Lids and lashes: appear normal, bilaterally. 00:41 ENT: External ear(s): pain with movement, that is moderate, of the left ear canal, swelling, that is moderate, of the left ear canal, Ear canal(s): erythema, that is minimal, of the left canal, purulent discharge, in the left canal, mild, TM's: bulging, on the left, Examination of the other ear shows no obvious abnormality, Nose: is normal, Mouth: Lips: moist, Oral mucosa: pink and intact, moist, Posterior pharynx: is normal, airway is patent, no erythema, no exudate. 00:41 Neck: ROM/movement: is normal, is supple, without pain, no range of motions limitations, no meningismus, no nuchal rigidity, Lymph nodes: no appreciated lymphadenopathy. 00:41 Chest/axilla: Inspection: normal. 00:41 Cardiovascular: Rate: normal. 00:41 Respiratory: the patient does not display signs of respiratory distress, Respirations: normal, no use of accessory muscles, no retractions, no splinting, no tachypnea, labored breathing, is not present. 00:41 Skin: cellulitis, is not appreciated. 00:41 Neuro: Orientation: is normal, Mentation: is normal, Gait: is steady, at a normal pace, without difficulty. Vital Signs: 10/27 23:31 BP 147 / 71; Pulse 93; Resp 18; Temp 97.9(TE); Pulse Ox 96% on R/A; Weight 90.72 kg; ed1 Height 5 ft. 1 in. (154.94 cm); Pain 7/10; 23:31 Body Mass Index 37.79 (90.72 kg, 154.94 cm) ed1 MDM: 10/28 00:15 Patient medically screened. cp 00:40 Differential diagnosis: otitis media, otitis externa, ruptured TM, foreign body, cp cerumen impaction. 00:45 Data reviewed: vital signs, nurses notes, and as a result, I will discharge patient. cp 00:45 Counseling: I had a detailed discussion with the patient and/or guardian regarding: the cp historical points, exam findings, and any diagnostic results supporting the discharge/admit diagnosis, to return to the emergency department if symptoms worsen or persist or if there are any questions or concerns that arise at home. 00:45 Response to treatment: the patient's symptoms have markedly improved after treatment, cp and as a result, I will discharge patient. Administered Medications: 00:53 Drug: Ibuprofen 800 mg Route: PO; ak1 00:54 Follow up: Response: No adverse reaction; Medication administered at discharge. ak1 00:53 Drug: Cipro 500 mg Route: PO; ak1 00:54 Follow up: Response: No adverse reaction; Medication administered at discharge. ak1 00:54 Drug: Tylenol #3 (300 mg-30 mg) 2 tabs Route: PO; ak1 00:54 Follow up: Response: No adverse reaction; Medication administered at discharge. ak1 Disposition: 01:15 Chart complete. cp 22:41 Co-signature as Attending Physician, John Langley MD. Disposition: 10/28/18 00:46 Discharged to Home. Impression: Otitis externa in other diseases classified elsewhere, left ear, Otitis media, unspecified, left ear. - Condition is Stable. - Discharge Instructions: Otitis Media, Adult, Otitis Externa. - Prescriptions for Ibuprofen 800 mg Oral Tablet - take 1 tablet by ORAL route every 8 hours As needed take with food; 30 tablet. Cipro 500 mg Oral Tablet - take 1 tablet by ORAL route every 12 hours for 10 days; 20 tablet. Ciprodex 0.3- 0.1 % Otic Drops, Suspension - instill 4 drop by OTIC route every 12 hours for 7 days , for ears ONLY; 1 Container. Tylenol- Codeine #3 300-30 mg Oral Tablet - take 2 tablets by ORAL route every 6 hours As needed; 12 tablet. - Medication Reconciliation Form, Thank You Letter, Antibiotic Education, Prescription Opioid Use form. - Follow up: Brigida Jorgensen MD; When: 2 - 3 days; Reason: Worsening of condition. - Problem is new. - Symptoms have improved. Signatures: Tessa Weinberg RN RN ed1 Radha Spann RN RN ak1 Tyrone Joseph PA PA cp John Langley MD MD gs Corrections: (The following items were deleted from the chart) 00:50 00:46 10/28/2018 00:46 Discharged to Home. Impression: Otitis externa in other diseases cp classified elsewhere, left ear. Condition is Stable. Forms are Medication Reconciliation Form, Thank You Letter, Antibiotic Education, Prescription Opioid Use. Follow up: Brigida Jorgensen; When: 2 - 3 days; Reason: Worsening of condition. Problem is new. Symptoms have improved. cp 01:06 00:50 10/28/2018 00:46 Discharged to Home. Impression: Otitis externa in other diseases ak1 classified elsewhere, left ear; Otitis media, unspecified, left ear. Condition is Stable. Discharge Instructions: Otitis Externa, Otitis Media, Adult. Prescriptions for Ibuprofen 800 mg Oral Tablet - take 1 tablet by ORAL route every 8 hours As needed take with food; 30 tablet, Cipro 500 mg Oral Tablet - take 1 tablet by ORAL route every 12 hours for 10 days; 20 tablet, Ciprodex 0.3-0.1 % Otic Drops, Suspension - instill 4 drop by OTIC route every 12 hours for 7 days , for ears ONLY; 1 Container, Tylenol-Codeine #3 300-30 mg Oral Tablet - take 2 tablets by ORAL route every 6 hours As needed; 12 tablet. and Forms are Medication Reconciliation Form, Thank You Letter, Antibiotic Education, Prescription Opioid Use. Follow up: Brigida Jorgensen; When: 2 - 3 days; Reason: Worsening of condition. Problem is new. Symptoms have improved. cp
[2018-10-28] MEDS ORDERED: CIPROFLOXACIN HCL 500 MG TAB ONE (00:56)
[2018-10-28] MEDS ORDERED: CODEINE 30MG/APAP 300MG TAB ONE (00:57)
[2018-10-28] MEDS ORDERED: IBUPROFEN 400 MG TAB ONE (00:57)
== END 2018-10-28 01:06 | disposition home or self-care (01) ==
LOC: ER 23:14
DX: H66.92 Otitis media, unspecified, left ear (principal); H62.42 Otitis externa in other diseases classified elsewhere, left ear; I10 Essential (primary) hypertension; E11.9 Type 2 diabetes mellitus without complications; F32.9 Major depressive disorder, single episode, unspecified; F31.9 Bipolar disorder, unspecified; Z72.0 Tobacco use; Z79.4 Long term (current) use of insulin; Z88.8 Allergy status to other drugs, medicaments and biological substances
CPT/HCPCS: 99283

== ENCOUNTER 2019-07-24 19:56 | Emergency (ER) | payer OTHER ==
--- OUTSIDE RECORDS SUMMARY | 2019-07-24 20:00 | XMS REPORT ---
:1980 [facility] Address [address] [place] [address] Dr. Carmona [address] [place] [id number] Care Team Providers Name Role Phone Unavailable Unavailable Unavailable Problems This patient has no known problems. Allergies, Adverse Reactions, Alerts This patient has no known allergies or adverse reactions. Medications This patient has no known medications.
[2019-07-24] MEDS ORDERED: HYDROCODONE/APAP 5/325 MG TAB ONE (21:08)
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
[2019-07-24 23:37] VITALS: BP 125/70; TEMP 98; O2SAT 99
--- NOTE | 2019-07-25 10:40 | RAD REPORT ---
EXAM DESCRIPTION: CT - Head C Spine Mpr Wo Con - 07/24/2019 9:57 pm CLINICAL HISTORY: Trauma. COMPARISON: None. TECHNIQUE: CT scan of the brain and cervical spine without IV contrast. This exam was performed acco rding to our departmental dose-optimization program, which includes automated exposure control, adjus tment of the mA and/or kV according to patient size and/or use of iterative reconstruction technique. FINDINGS: BRAIN: The ventricles, cisterns, and sulci are age-appropriate. No evidence of acute infarction, intracrania l hemorrhage, extra-axial fluid collection, or midline shift. No air-fluid levels are seen in the par anasal sinuses to suggest acute sinusitis. No depressed skull fracture. CERVICAL SPINE: No acute cervical fracture or prevertebral soft tissue swelling. There is straightening of the normal cervical lordosis, which may be due to cervical collar, muscle spasm, or patient positioning. The fa cet joints and disc spaces are preserved. No advanced canal stenosis is identified. IMPRESSION: 1. No acute intracranial hemorrhage. 2. No acute fracture or subluxation of the cervical spine. Electronically signed by: Sudheer Quintero MD 07/24/2019 9:27 PM PHOTOGRAPHER MODEL Due to temporary technical issues with the PACS/Fluency reporting system, reports are being signed by the in house radiologist as a courtesy to ensure prompt reporting. The interpreting radiologist is f ully responsible for the content of the report.
== END 2019-07-24 22:32 | disposition home or self-care (01) ==
LOC: ER 19:56
DX: S09.90XA Unspecified injury of head, initial encounter (principal); Y04.2XXA Assault by strike against or bumped into by another person, initial encounter; Y93.9 Activity, unspecified; Y92.89 Other specified places as the place of occurrence of the external cause; Z88.8 Allergy status to other drugs, medicaments and biological substances; Z04.71 Encounter for examination and observation following alleged adult physical abuse; I10 Essential (primary) hypertension; E11.9 Type 2 diabetes mellitus without complications; F31.9 Bipolar disorder, unspecified
CPT/HCPCS: 70450; 72125; 99283

== ENCOUNTER 2020-01-09 15:17 | Emergency (ER) | payer OTHER ==
--- OUTSIDE RECORDS SUMMARY | 2020-01-09 15:35 | XMS REPORT | Continuity of Care Document ---
:1980 Author Organization [facility] t Address [address] [place] [address] Dr. Carmona [address] [place] [id number] Care Team Providers Name Role Phone Unavailable Unavailable Unavailable Problems This patient has no known problems. Allergies, Adverse Reactions, Alerts This patient has no known allergies or adverse reactions. Medications This patient has no known medications. Procedures This patient has no known procedures. Results This patient has no known results.
[2020-01-09] MEDS ORDERED: NA CHLORIDE 0.9% 1,000 ML ONE (17:03)
[2020-01-09 17:47] LABS: Absolute Lymphocytes (CBC) 1.2 K/uL (0.7-4.9); Basophils % 0.5 % (0-1.3); Lymphocytes % 10.5 % (15.3-44.8); MPV 10.3 fL (7.6-11.3); RBC Red Blood Cell Count 4.56 M/uL (3.86-4.86)
[2020-01-09 18:09] LABS: BUN Blood Urea Nitrogen 9 mg/dL (7-18); Bicarbonate 26 mmol/L (21-32); Sodium Level 134 mmol/L (136-145)
[2020-01-09 18:13] LABS: Glucose Level 400 mg/dL (74-106)
[2020-01-09] MEDS ORDERED: FLUCONAZOLE 100 MG TAB ONE (18:18)
[2020-01-09 18:50] LABS: Urine Blood 2+ (NEG); Urine Glucose 2+ (NEG); Urine Protein NEGATIVE (NEG); Urine pH 6.5 (5.0-7.0)
[2020-01-09 18:58] LABS: Urine Bacteria <20 /HPF (<20); Urine Culture Reflex Order NOT NEEDED; Urine RBC <5 /HPF (NONE SEEN)
--- NOTE | 2020-01-09 19:24 | RAD REPORT ---
EXAM DESCRIPTION: [place] Single View01/09/2020 6:37 pm CLINICAL HISTORY: cough COMPARISON: 2017 FINDINGS: The lungs appear clear of acute infiltrate. The heart is normal size IMPRESSION: No acute abnormalities displayed
--- NOTE | 2020-01-09 19:34 | ER ---
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 Reports nausea and diarrhea. Was put on steroids, inhalers for cough x 1 month. Tested Negative for COVID-19 2 weeks ago. Pt has Diabetes - NIDDM. Coronavirus screen: Client denies travel out of the [place] in the last 14 days. cough unrelated to allergies, diarrhea, nausea, Client presents with at least one sign or symptom that may indicate coronavirus-19. The client reports previous COVID testing was negative. Date of collection: December 24, 2019. Ebola Screen: Patient negative for fever greater than or equal to 101.5 degrees Fahrenheit, and additional compatible Ebola Virus Disease symptoms Patient denies exposure to infectious person. Patient denies travel to an Ebola-affected area in the 21 days before illness onset. No symptoms or risks identified at this time. Initial Sepsis Screen: Does the patient meet any 2 criteria? No. Patient's initial sepsis screen is negative. Does the patient have a suspected source of infection? No. Patient's initial sepsis screen is negative. Risk Assessment: Do you want to hurt yourself or someone else? Patient reports no desire to harm self or others. Onset of symptoms was January 09, 2020. 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 - Social history:: Smoking status: Patient denies any tobacco usage or history of. Screenin:45 Abuse screen: Denies threats or abuse. Nutritional screening: No deficits noted. aa5 Tuberculosis screening: No symptoms or risk factors identified. Fall Risk None identified. Assessment: 16:45 General: Appears comfortable, Behavior is calm, cooperative, Pt reports high blood aa5 sugar x 5 days ago. Pt states "I took my last steroid pill today because I was having respiratory issues" . Pain: Denies pain. Neuro: Level of Consciousness is awake, alert, obeys commands, Oriented to person, place, time, situation. Cardiovascular: Heart tones S1 S2 present Rhythm is regular. Respiratory: Reports cough that is dry, since 2 weeks ago Airway is patent Respiratory effort is even, unlabored, Respiratory pattern is regular, symmetrical, Breath sounds are clear bilaterally. Denies shortness of breath. GI: Abdomen is round non-distended, Bowel sounds present X 4 quads. Abd is soft and non tender X 4 quads. : Reports vaginal irritation. EENT: No signs and/or symptoms were reported regarding the EENT system. Derm: Skin is dry, Skin is normal, Skin temperature is warm. Musculoskeletal: Range of motion: intact in all extremities. 17:25 Reassessment: Patient is alert, oriented x 3, equal unlabored respirations, skin aa5 warm/dry/pink. 18:13 Reassessment: Patient is alert, oriented x 3, equal unlabored respirations, skin aa5 warm/dry/pink. Awaiting complete results. . Vital Signs: 16:09 BP 127 / 76; Pulse 83; Resp 18 S; Temp 98.2(O); Pulse Ox 100% on R/A; Weight 90.72 kg ca1 (R); Height 5 ft. 1 in. (154.94 cm) (R); 18:13 BP 127 / 69; Pulse 80; Resp 18 S; Pulse Ox 100% on R/A; aa5 16:09 Body Mass Index 37.79 (90.72 kg, 154.94 cm) ca1 ED Course: 15:23 Patient arrived in ED. ag5 16:13 Triage completed. ca1 16:14 Arm band placed on right wrist. ca1 16:35 Odilia Triana, RN is Primary Nurse. aa5 16:45 Patient has correct armband on for positive identification. Placed in gown. Bed in low aa5 position. Call light in reach. Side rails up X2. 16:46 Fahad Vicente PA is PHCP. jr8 16:46 Tyrone Sotomayor MD is Attending Physician. jr8 17:25 Initial lab(s) drawn, by me, sent to lab. Inserted saline lock: 20 gauge in right aa5 antecubital area, using aseptic technique. Blood collected. 18:13 COVID-19 swab collected and sent to lab. aa5 18:37 XRAY Chest (1 view) In Process Unspecified. EDMS 19:00 Report given to FRANKIE Rios. aa5 Administered Medications: 17:28 Drug: NS 0.9% 1000 ml Route: IV; Rate: 1000 ml; Site: right antecubital; aa5 18:10 Drug: DiFLUcan 150 mg Route: PO; aa5 Point of Care Testing: Blood Glucose: 16:15 Blood Glucose: 394 mg/dL; ca1 Ranges: Outcome: 19:34 Discharge ordered by . jr8 19:46 Patient left the ED. ar5 Addendum: 01/11/2020 15:22 Addendum: COVID-19 Result: Negative result given to RN to notify pt. Attempted to s s contact pt regarding negative COVID-19 swab results. Unable to leave voice mail due to the number provided was either not a working number, the voice mail has not been set up, or the voice mailbox is full.. Other: is for "Nisa". Did not leave message as this may be wrong number. 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 ca1 Reports nausea and diarrhea. Was put on steroids, inhalers for cough x 1 month. Tested Negative for COVID-19 2 weeks ago. ca1 19:15 16:45 Respiratory: Reports cough that is dry, Airway is patent Respiratory effort is aa5 even, unlabored, Respiratory pattern is regular, symmetrical, Breath sounds are clear bilaterally. Denies shortness of breath aa5
--- NOTE | 2020-01-09 19:35 | EDPHYS ---
Physician Documentation [facility] Name: Jodee Rae Age: 39 yrs Sex: Female : 1980 Arrival Date: 01/09/2020 Time: 15:23 Bed 14 Private MD: ED Physician Tyrone Sotomayor HPI: 01/08 19:10 This 39 yrs old Female presents to ER via Ambulatory with complaints of High jr8 Blood Sugar. 19:11 Onset: The symptoms/episode began/occurred acutely, today. Associated signs and jr8 symptoms: Pertinent positives: polydipsia, polyuria. Current symptoms: In the emergency department the patient's symptoms are unchanged from the initial presentation. The patient has experienced a previous episode. The patient has not recently seen a physician. Patient stated that she has had continued cough and shortness of breath for one month. Has been on steroids. Mild improvement. Stated that she came in today for frequent thirst, urination, and headache. Noted that her blood glucose level was elevated . 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 - Social history:: Smoking status: Patient denies any tobacco usage or history of. ROS: 19:11 Eyes: Negative for injury, pain, redness, and discharge, ENT: Negative for injury, jr8 pain, and discharge, Neck: Negative for injury, pain, and swelling, Cardiovascular: Negative for chest pain, palpitations, and edema, Abdomen/GI: Negative for abdominal pain, nausea, vomiting, diarrhea, and constipation, Back: Negative for injury and pain, MS/Extremity: Negative for injury and deformity, Skin: Negative for injury, rash, and discoloration. 19:11 Respiratory: Positive for cough, shortness of breath. 19:11 Neuro: Positive for headache. 19:11 Endocrine: Positive for polydipsia, polyuria. Exam: 19:11 Eyes: Pupils equal round and reactive to light, extra-ocular motions intact. Lids and jr8 lashes normal. Conjunctiva and sclera are non-icteric and not injected. Cornea within normal limits. Periorbital areas with no swelling, redness, or edema. ENT: Nares patent. No nasal discharge, no septal abnormalities noted. Tympanic membranes are normal and external auditory canals are clear. Oropharynx with no redness, swelling, or masses, exudates, or evidence of obstruction, uvula midline. Mucous membranes moist. Neck: Trachea midline, no thyromegaly or masses palpated, and no cervical lymphadenopathy. Supple, full range of motion without nuchal rigidity, or vertebral point tenderness. No Meningismus. Cardiovascular: Regular rate and rhythm with a normal S1 and S2. No gallops, murmurs, or rubs. Normal PMI, no JVD. No pulse deficits. Respiratory: Lungs have equal breath sounds bilaterally, clear to auscultation and percussion. No rales, rhonchi or wheezes noted. No increased work of breathing, no retractions or nasal flaring. Abdomen/GI: Soft, non-tender, with normal bowel sounds. No distension or tympany. No guarding or rebound. No evidence of tenderness throughout. Back: No spinal tenderness. No costovertebral tenderness. Full range of motion. Skin: Warm, dry with normal turgor. Normal color with no rashes, no lesions, and no evidence of cellulitis. MS/ Extremity: Pulses equal, no cyanosis. Neurovascular intact. Full, normal range of motion. Neuro: Awake and alert, GCS 15, oriented to person, place, time, and situation. Cranial nerves II-XII grossly intact. Motor strength 5/5 in all extremities. Sensory grossly intact. Cerebellar exam normal. Vital Signs: 16:09 BP 127 / 76; Pulse 83; Resp 18 S; Temp 98.2(O); Pulse Ox 100% on R/A; Weight 90.72 kg ca1 (R); Height 5 ft. 1 in. (154.94 cm) (R); 18:13 BP 127 / 69; Pulse 80; Resp 18 S; Pulse Ox 100% on R/A; aa5 16:09 Body Mass Index 37.79 (90.72 kg, 154.94 cm) ca1 MDM: 16:47 Patient medically screened. jr8 19:29 Data reviewed: vital signs, nurses notes, lab test result(s), radiologic studies, plain jr8 films. Data interpreted: Pulse oximetry: on room air is 100 %. Interpretation: normal. Counseling: I had a detailed discussion with the patient and/or guardian regarding: the historical points, exam findings, and any diagnostic results supporting the discharge/admit diagnosis, lab results, radiology results, the need for outpatient follow up, a family practitioner, to return to the emergency department if symptoms worsen or persist or if there are any questions or concerns that arise at home. Response to treatment: the patient's symptoms have mildly improved after treatment, patient is well hydrated. ED course: Blood sugar decreased. Feeling better. No acute lung findings. Rest of labs stable. Will d/c home to wait for COVID results . 01/08 16:21 Order name: Glucose, Ancillary Testing; Complete Time: 16:46 EDMS 01/08 16:47 Order name: CBC with Diff [facility] 01/08 16:47 Order name: Basic Metabolic Panel; Complete Time: 18:17 [facility] 01/08 16:47 Order name: Ketone, Serum; Complete Time: 18:17 [facility] 01/08 17:36 Order name: Urine Microscopic Only; Complete Time: 19:13 iw 01/08 17:38 Order name: Urine Dipstick--Ancillary (enter results); Complete Time: 19:13 bd 01/08 16:47 Order name: IV; Complete Time: 18:00 [facility] 01/08 16:47 Order name: Urine Test (obtain specimen); Complete Time: 18:00 [facility] 01/08 16:47 Order name: Urine Dipstick-Ancillary (obtain specimen); Complete Time: 18:00 [facility] 01/08 17:44 Order name: Urine --Ancillary (enter results); Complete Time: 19:28 bd 01/08 17:58 Order name: XRAY Chest (1 view); Complete Time: 19:28 [facility] 01/08 17:58 Order name: COVID-19 8 Administered Medications: 17:28 Drug: NS 0.9% 1000 ml Route: IV; Rate: 1000 ml; Site: right antecubital; aa5 18:10 Drug: DiFLUcan 150 mg Route: PO; aa5 Point of Care Testing: Blood Glucose: 16:15 Blood Glucose: 394 mg/dL; ca1 Ranges: Critical Glucose Levels:Adult <50 mg/dl or >400 mg/dl <40 mg/dl or >180 mg/dl Disposition: 01/09 08:45 Co-signature as Attending Physician, Tyrone Sotomayor MD I agree with the assessment and [facility] plan of care. Disposition: 01/09/20 19:34 Discharged to Home. Impression: Encounter for screening for other viral diseases, Hyperglycemia, unspecified. - Condition is Stable. - Discharge Instructions: Hyperglycemia, Blood Glucose Monitoring, Adult. - Medication Reconciliation Form, Thank You Letter, Antibiotic Education, Prescription Opioid Use form. - Follow up: Private Physician; When: 5 - 6 days; Reason: Recheck today's complaints, Continuance of care, Re-evaluation by your physician. - Problem is new. - Symptoms have improved. Signatures: Dispatcher [employer] EDTyrone Moeller MD MD cha Calderon, Audri, RN RN aa5 Fahad Vicente PA PA jr8 Harriett Ayala ar5 Amalia Fisher RN RN ca1 Corrections: (The following items were deleted from the chart) 01/08 19:46 19:34 01/09/2020 19:34 Discharged to Home. Impression: Encounter for screening for ar5 other viral diseases; Hyperglycemia, unspecified. Condition is Stable. Forms are Medication Reconciliation Form, Thank You Letter, Antibiotic Education, Prescription Opioid Use. Follow up: Private Physician; When: 5 - 6 days; Reason: Recheck today's complaints, Continuance of care, Re-evaluation by your physician. Problem is new. Symptoms have improved. jr8
[2020-01-09 19:52] VITALS: BP 127/69; O2SAT 100
[2020-01-09 19:54] VITALS: TEMP 98.2
[2020-01-09 20:10] LABS: Anisocytosis 1+; Blood Morphology Comment NOTED (NOT SEEN); Platelet Estimate ADEQ; Poikilocytosis 1+; Urine White Blood Cell Casts OK
== END 2020-01-09 19:46 | disposition home or self-care (01) ==
LOC: ER 15:17
DX: E11.65 Type 2 diabetes mellitus with hyperglycemia (principal); Z20.828 Contact with and (suspected) exposure to other viral communicable diseases; Z11.59 Encounter for screening for other viral diseases; I10 Essential (primary) hypertension; Z88.8 Allergy status to other drugs, medicaments and biological substances
CPT/HCPCS: 85025; 80048; 36415; 82010; 81025; 82947 ×2; 71045; 99284; J7030; 81003; 81015

== ENCOUNTER 2020-04-08 20:53 | Emergency (ER) | payer OTHER ==
--- OUTSIDE RECORDS SUMMARY | 2020-04-08 20:55 | XMS REPORT | Continuity of Care Document ---
:1980 Author Organization [facility] Address [address] [place] [address] Dr. Carmona [address] [place] [address] Care Team Providers Name Role Phone Unavailable Unavailable Unavailable Problems This patient has no known problems. Allergies, Adverse Reactions, Alerts This patient has no known allergies or adverse reactions. Medications This patient has no known medications. Procedures This patient has no known procedures. Results This patient has no known results.
[2020-04-08] MEDS ORDERED: LORazepam 2 MG/ML VIAL ONE (21:23)
[2020-04-08] MEDS ORDERED: NA CHLORIDE 0.9% 1,000 ML ONE (21:30)
[2020-04-08 21:42] LABS: Protime INR 0.96
[2020-04-08 21:47] LABS: Barbiturates NEGATIVE (NEGATIVE); Benzodiazepines NEGATIVE (NEGATIVE); Cocaine NEGATIVE (NEGATIVE); METHAMPHETAM NEGATIVE (NEGATIVE); Methadone NEGATIVE (NEGATIVE); Opiates NEGATIVE (NEGATIVE); Phencyclidine NEGATIVE (NEGATIVE); THC Cannibis NEGATIVE (NEGATIVE)
[2020-04-08 21:59] LABS: Urine Blood TRACE (NEG); Urine Glucose 2+ (NEG); Urine Protein NEGATIVE (NEG); Urine Specific Gravity <1.005 (1.005-1.030)
[2020-04-08 22:01] LABS: ALT/SGPT 42 U/L (12-78); AST/SGOT 21 U/L (15-37); Albumin 4.3 g/dL (3.4-5.0); Alkaline Phosphatase 119 U/L (45-117); BUN Blood Urea Nitrogen 7 mg/dL (7-18); Bicarbonate 23 mmol/L (21-32); Bilirubin Direct 0.2 mg/dL (0-0.2); Bilirubin Total 0.8 mg/dL (0.2-1.0); Glucose Level 350 mg/dL (74-106); Magnesium 1.9 mg/dL (1.8-2.4); NT PRO-BNP 11 pg/mL (<125); Potassium 3.9 mmol/L (3.5-5.1); Protein, Total 8.7 g/dL (6.4-8.2); Sodium Level 135 mmol/L (136-145); Troponin (Emerg Dept Use Only) < 0.02 ng/mL (0.0-0.045)
[2020-04-08 22:19] LABS: Absolute Lymphocytes (CBC) 5.5 K/uL (0.7-4.9); Basophils % 0.4 % (0-1.3); Hematocrit 46.3 % (36.0-45.0); Lymphocytes % 46.4 % (15.3-44.8); MPV 10.9 fL (7.6-11.3); RBC Red Blood Cell Count 5.21 M/uL (3.86-4.86)
--- NOTE | 2020-04-08 22:28 | EDPHYS ---
Physician Documentation [facility] Name: Jodee Rae Age: 39 yrs Sex: Female : 1980 Arrival Date: 04/08/2020 Time: 20:54 Bed 2 Private MD: ED Physician Samuel Rascon HPI: 04/08 21:22 This 39 yrs old Female presents to ER via Wheelchair with complaints of mh7 Breathing Difficulty, Anxiety. 21:22 The patient has shortness of breath during emotionally upset, that occurred on a street mh7 or driveway, and the patient has a history of Anxiety. Onset: The symptoms/episode began/occurred today. Duration: The symptoms are continuous, and are steadily getting worse. The patient's shortness of breath is aggravated by emotional upset, is alleviated by nothing. Associated signs and symptoms: Pertinent negatives: chest pain, non-productive cough, productive cough, diaphoresis, dizziness, fever, hemoptysis, loss of consciousness, nausea, numbness in extremities, visual changes, vomiting. Severity of symptoms: At their worst the symptoms were moderate today, in the emergency department the symptoms are unchanged. The patient has experienced similar episodes in the past, several times. Patient attended a of a close family member and started to have breathing difficulty. She has had similar issues in the past that were due to panic attacks. She denies any chest pain, abdominal pain, fever, cough, nausea, vomiting, dizziness, numbness/tingling, or weakness.. 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 rr5 Historical: - Allergies: 21:07 Lisinopril; cough; jd3 21:07 [place] Carbonate; jd3 - Home Meds: 21:07 Actos Oral [Active]; atorvastatin Oral [Active]; citalopram oral once daily [Active]; jd3 gabapentin 300 mg Oral cap 1 cap 3 times per day [Active]; metformin 1,000 mg Oral tab 1 tab 2 times per day [Active]; loratadine 10 mg Oral tab [Active]; Seroquel 200 mg Oral tab 1 tab nightly [Active]; hydroxyzine HCl 25 mg Oral tab 1 tab 2 times daily [Active]; - PMHx: 21:07 Asthma; Bipolar disorder; Depression; Diabetes - IDDM; Diabetes - NIDDM; Hypertension; jd3 - PSHx: 21:07 ; jd3 - Immunization history:: Adult Immunizations unknown. - Social history:: Smoking status: Patient reports the use of cigarette tobacco products, unknown amount. ROS: 21:22 Constitutional: Negative for fever, chills, and weight loss, Eyes: Negative for injury, mh7 pain, redness, and discharge, ENT: Negative for injury, pain, and discharge, Neck: Negative for injury, pain, and swelling, Cardiovascular: Negative for chest pain, palpitations, and edema, Abdomen/GI: Negative for abdominal pain, nausea, vomiting, diarrhea, and constipation, Back: Negative for injury and pain, : Negative for injury, bleeding, discharge, and swelling, MS/Extremity: Negative for injury and deformity, Skin: Negative for injury, rash, and discoloration, Neuro: Negative for headache, weakness, numbness, tingling, and seizure, Allergy/Immunology: Negative for hives, rash, and allergies, Endocrine: Negative for neck swelling, polydipsia, polyuria, polyphagia, and marked weight changes, Hematologic/Lymphatic: Negative for swollen nodes, abnormal bleeding, and unusual bruising. Exam: 21:22 Head/Face: Normocephalic, atraumatic. Eyes: Pupils equal round and reactive to light, mh7 extra-ocular motions intact. Lids and lashes normal. Conjunctiva and sclera are non-icteric and not injected. Cornea within normal limits. Periorbital areas with no swelling, redness, or edema. Neck: Trachea midline, no thyromegaly or masses palpated, and no cervical lymphadenopathy. Supple, full range of motion without nuchal rigidity, or vertebral point tenderness. No Meningismus. Chest/axilla: Normal chest wall appearance and motion. Nontender with no deformity. No lesions are appreciated. 21:22 Abdomen/GI: Soft, non-tender, with normal bowel sounds. No distension or tympany. No guarding or rebound. No evidence of tenderness throughout. Back: No spinal tenderness. No costovertebral tenderness. Full range of motion. Skin: Warm, dry with normal turgor. Normal color with no rashes, no lesions, and no evidence of cellulitis. MS/ Extremity: Pulses equal, no cyanosis. Neurovascular intact. Full, normal range of motion. Neuro: Awake and alert, GCS 15, oriented to person, place, time, and situation. Cranial nerves II-XII grossly intact. Motor strength 5/5 in all extremities. Sensory grossly intact. Cerebellar exam normal. Normal gait. 21:22 Constitutional: The patient appears alert, awake, anxious, uncomfortable, Hyperventilating 21:22 Cardiovascular: Rate: tachycardic, Rhythm: regular, Pulses: no pulse deficits are appreciated, Heart sounds: normal, normal S1and S2, Edema: is not appreciated, JVD: is not appreciated. 21:22 Respiratory: mild respiratory distress is noted, Respirations: tachypnea, that is mild, Hyperventilating, Breath sounds: are clear throughout, Respiratory rate: 28 21:22 Psych: Behavior/mood is cooperative, anxious, Affect is animated, Oriented to person, place, time, Patient has no thoughts/intents to harm self or others. Judgement / Insight is normal. Memory is normal. Delusions/hallucinations are not present. Vital Signs: 21:08 BP 159 / 117; Pulse 115; Resp 28 S; Temp 97.6(TE); Pulse Ox 98% on R/A; Pain 0/10; jd3 21:15 BP 142 / 85; Pulse 113; Resp 30; Pulse Ox 100% on 15% Non-rebreather mask; rr5 21:30 BP 122 / 63; Pulse 102; Resp 24; Pulse Ox 99% on 15% Non-rebreather mask; rr5 21:59 BP 117 / 74; Pulse 100; Resp 19; Pulse Ox 100% on R/A; rr5 22:35 BP 97 / 79; Pulse 98; Resp 15; Pulse Ox 98% on R/A; ea MDM: 21:16 Patient medically screened. 7 22:26 Differential diagnosis: Anemia Anxiety Reaction asthma, Bronchitis CHF exacerbation, mh7 Chronic Obstructive Pulmonary Disease Myocardial Infarction pneumonia, Pneumothorax Psychogenic pulmonary edema, reactive airway disease. Data reviewed: vital signs, nurses notes, old medical records, lab test result(s), cardiac enzymes, CBC, drug level(s), electrolytes, urinalysis, urine drug screen, EKG, radiologic studies, plain films. Data interpreted: Pulse oximetry: on room air is 100 %. Interpretation: normal. Counseling: I had a detailed discussion with the patient and/or guardian regarding: the historical points, exam findings, and any diagnostic results supporting the discharge/admit diagnosis, the presence of at least one elevated blood pressure reading (>120/80) during this emergency department visit, lab results, radiology results, the need for outpatient follow up, to return to the emergency department if symptoms worsen or persist or if there are any questions or concerns that arise at home. Response to treatment: the patient's symptoms have resolved after treatment, the patient's blood pressure is in an acceptable range, mental status has returned to baseline, the patient no longer shows bradycardia, the patient is not short of breath, the patient is not tachycardic, the patient's pain is gone, the patient's temperature has normalized. 04/08 21:17 Order name: Basic Metabolic Panel; Complete Time: 22:08 [facility] 04/08 21:17 Order name: CBC with Diff [facility] 04/08 21:17 Order name: LFT's; Complete Time: 22:08 [facility] 04/08 21:17 Order name: Magnesium; Complete Time: 22:08 [facility] 04/08 21:17 Order name: NT PRO-BNP; Complete Time: 22:08 [facility] 04/08 21:17 Order name: PT-INR; Complete Time: 21:44 [facility] 04/08 21:17 Order name: Troponin (emerg Dept Use Only); Complete Time: 22:08 [facility] 04/08 21:18 Order name: ETOH Level; Complete Time: 22:08 [facility] 04/08 21:18 Order name: UDS; Complete Time: 21:52 7 04/08 21:21 Order name: Acetaminophen; Complete Time: 22:08 7 04/08 21:21 Order name: Salicylate; Complete Time: 22:20 [facility] 04/08 21:22 Order name: Glucose, Ancillary Testing; Complete Time: 21:44 EDMS 04/08 21:33 Order name: Urine --Ancillary (enter results); Complete Time: 22:08 tt3 04/08 21:33 Order name: Urine Dipstick--Ancillary (enter results); Complete Time: 22:08 tt3 04/08 21:17 Order name: XRAY Chest (1 view) [facility] 04/08 21:17 Order name: EKG; Complete Time: 21:18 7 04/08 21:17 Order name: Cardiac monitoring; Complete Time: 21:34 [facility] 04/08 21:17 Order name: EKG - Nurse/Tech; Complete Time: 21:35 [facility] 04/08 21:17 Order name: IV Saline Lock; Complete Time: 21:21 [facility] 04/08 21:17 Order name: Labs collected and sent; Complete Time: 21:35 [facility] 04/08 21:17 Order name: O2 Per Protocol; Complete Time: 21:21 [facility] 04/08 21:17 Order name: O2 Sat Monitoring; Complete Time: 21:21 [facility] 04/08 21:18 Order name: Urine Dipstick-Ancillary (obtain specimen); Complete Time: 21:34 [facility] 04/08 21:18 Order name: Urine Test (obtain specimen); Complete Time: :34 7 Administered Medications: 21:15 Drug: Ativan 1 mg Route: IVP; Site: left forearm; rr5 21:50 Follow up: Response: No adverse reaction; Marked relief of symptoms rr5 21:30 Drug: NS 0.9% 1000 ml Route: IV; Rate: 1000 ml; Site: left forearm; rr5 22:30 Follow up: Response: No adverse reaction; IV Status: Completed infusion; IV Intake: rr5 1000ml Disposition: 04/08/20 22:28 Discharged to Home. Impression: Panic disorder [episodic paroxysmal anxiety] without agoraphobia. - Condition is Stable. - Discharge Instructions: Panic Attacks, [id number]. - Medication Reconciliation Form, Thank You Letter, Antibiotic Education, Prescription Opioid Use form. - Follow up: Private Physician; When: 1 - 2 days; Reason: Worsening of condition, Recheck today's complaints, Continuance of care, Re-evaluation by your physician. - Problem is an acute exacerbation. - Symptoms are resolved. Signatures: Dispatcher [employer] Baljit Diehl RN RN jd3 Wolfgang Buenrostro RN RN rr5 Samuel Rascon MD MD mh7 Corrections: (The following items were deleted from the chart) 22:42 22:28 04/08/2020 22:28 Discharged to Home. Impression: Panic disorder [episodic rr5 paroxysmal anxiety] without agoraphobia. Condition is Stable. Forms are Medication Reconciliation Form, Thank You Letter, Antibiotic Education, Prescription Opioid Use. Follow up: Private Physician; When: 1 - 2 days; Reason: Worsening of condition, Recheck today's complaints, Continuance of care, Re-evaluation by your physician. Problem is an acute exacerbation. Symptoms are resolved. mh7
--- NOTE | 2020-04-08 22:28 | ER ---
Nurse's Notes [facility] Name: Jodee Rae Age: 39 yrs Sex: Female : 1980 Arrival Date: 04/08/2020 Time: 20:54 Bed 2 Private MD: Diagnosis: Panic disorder [episodic paroxysmal anxiety] without agoraphobia Presentation: 04/08 21:04 Chief complaint: Patient's son or daughter states: adult child states: "we were at [facility] and we went to drink beers afterwards. I thought she was just grieving at first, but then she started to say she can't breath like she says with previous panic attacks. we tried giving her a paper bag, but it just got worse so we brought her here.". Coronavirus screen: At this time, the client does not indicate any symptoms associated with coronavirus-19. Ebola Screen: Patient negative for fever greater than or equal to 101.5 degrees Fahrenheit, and additional compatible Ebola Virus Disease symptoms. Initial Sepsis Screen: Does the patient meet any 2 criteria? No. Patient's initial sepsis screen is negative. Does the patient have a suspected source of infection? No. Patient's initial sepsis screen is negative. Risk Assessment: Do you want to hurt yourself or someone else? Patient reports no desire to harm self or others. Onset of symptoms was April 08, 2020. 21:04 Method Of Arrival: Wheelchair jd3 21:04 Acuity: GERTRUDIS 3 jd3 Triage Assessment: 21:00 General: Appears uncomfortable, Behavior is cooperative, anxious. Respiratory: Reports rr5 shortness of breath air hunger Onset: The symptoms/episode began/occurred the patient has moderate shortness of breath. 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, unknown rr5 Historical: - Allergies: 21:07 Lisinopril; cough; jd3 21:07 [place] Carbonate; jd3 - Home Meds: 21:07 Actos Oral [Active]; atorvastatin Oral [Active]; citalopram oral once daily [Active]; jd3 gabapentin 300 mg Oral cap 1 cap 3 times per day [Active]; metformin 1,000 mg Oral tab 1 tab 2 times per day [Active]; loratadine 10 mg Oral tab [Active]; Seroquel 200 mg Oral tab 1 tab nightly [Active]; hydroxyzine HCl 25 mg Oral tab 1 tab 2 times daily [Active]; - PMHx: 21:07 Asthma; Bipolar disorder; Depression; Diabetes - IDDM; Diabetes - NIDDM; Hypertension; jd3 - PSHx: 21:07 ; jd3 - Immunization history:: Adult Immunizations unknown. - Social history:: Smoking status: Patient reports the use of cigarette tobacco products, unknown amount. Screenin:15 Abuse screen: Denies threats or abuse. Denies injuries from another. Nutritional rr5 screening: No deficits noted. Tuberculosis screening: No symptoms or risk factors identified. Fall Risk IV access (20 points). Gait- Weak (10 pts.). Total Garcia Fall Scale indicates No Risk (0-24 pts). Assessment: 21:00 General: Appears distressed, uncomfortable, Behavior is cooperative, anxious. Pain: rr5 Denies pain. Neuro: Level of Consciousness is awake, alert, obeys commands, Oriented to person, place, time. Cardiovascular: Capillary refill < 3 seconds Patient's skin is warm and dry. Rhythm is sinus tachycardia. Respiratory: Airway is patent Respiratory effort is labored, Respiratory pattern is hyperventilation Breath sounds are clear bilaterally. GI: No signs and/or symptoms were reported involving the gastrointestinal system. : No signs and/or symptoms were reported regarding the genitourinary system. EENT: No signs and/or symptoms were reported regarding the EENT system. Derm: Skin is intact, is healthy with good turgor, Skin temperature is warm. Musculoskeletal: Circulation, motion, and sensation intact. Capillary refill < 3 seconds. 21:52 Reassessment: Patient appears in no apparent distress at this time. Patient is alert, rr5 oriented x 3, equal unlabored respirations, skin warm/dry/pink. Patient states feeling better. Patient states symptoms have improved. 22:38 Reassessment: Patient appears in no apparent distress at this time. Patient is alert, rr5 oriented x 3, equal unlabored respirations, skin warm/dry/pink. discharge instruction given and explained without complaints made Patient states feeling better. Patient states symptoms have improved. Vital Signs: 21:08 BP 159 / 117; Pulse 115; Resp 28 S; Temp 97.6(TE); Pulse Ox 98% on R/A; Pain 0/10; jd3 21:15 BP 142 / 85; Pulse 113; Resp 30; Pulse Ox 100% on 15% Non-rebreather mask; rr5 21:30 BP 122 / 63; Pulse 102; Resp 24; Pulse Ox 99% on 15% Non-rebreather mask; rr5 21:59 BP 117 / 74; Pulse 100; Resp 19; Pulse Ox 100% on R/A; rr5 22:35 BP 97 / 79; Pulse 98; Resp 15; Pulse Ox 98% on R/A; ea ED Course: 20:54 Patient arrived in ED. sg 20:57 Samuel Rascon MD is Attending Physician. mh7 21:00 Inserted saline lock: 22 gauge in right forearm, using aseptic technique. Missed ds4 attempt(s): 20 gauge in right antecubital area. Bleeding controlled, band aid applied, catheter tip intact. 21:05 Inserted saline lock: 20 gauge in left forearm, using aseptic technique. Blood rr5 collected. 21:06 Triage completed. jd3 21:09 Arm band placed on. EKG completed in triage. Results shown to MD. jd3 21:10 Patient has correct armband on for positive identification. Placed in gown. Bed in low rr5 position. Call light in reach. Side rails up X2. monitoring tech on. Pulse ox on. NIBP on. 21:20 Oxygen administration via non-rebreather mask \\T\\ 15L/min. rr5 21:34 Wolfgang Buenrostro, RN is Primary Nurse. rr5 21:36 XRAY Chest (1 view) In Process Unspecified. EDMS 22:39 No provider procedures requiring assistance completed. IV discontinued, intact, rr5 bleeding controlled, No redness/swelling at site. Pressure dressing applied. Administered Medications: 21:15 Drug: Ativan 1 mg Route: IVP; Site: left forearm; rr5 21:50 Follow up: Response: No adverse reaction; Marked relief of symptoms rr5 21:30 Drug: NS 0.9% 1000 ml Route: IV; Rate: 1000 ml; Site: left forearm; rr5 22:30 Follow up: Response: No adverse reaction; IV Status: Completed infusion; IV Intake: rr5 1000ml Intake: 22:30 IV: 1000ml; Total: 1000ml. rr5 Outcome: 22:28 Discharge ordered by . 7 22:39 Discharged to home ambulatory, with family. rr5 22:39 Condition: stable 22:39 Discharge instructions given to patient, Instructed on discharge instructions, follow up and referral plans. Demonstrated understanding of instructions, follow-up care. 22:42 Patient left the ED. rr5 Signatures: Dispatcher [employer] EDMS Horace Hoskins RN Vickey Medina ds4 Sully Sears RN RN ea Davies, Jonathon, RN RN jd3 Roque, Raymond, RN RN rr5 Samuel Rascon MD MD 7 Corrections: (The following items were deleted from the chart) 22:42 21:32 unknown rr5 rr5
[2020-04-08 23:07] VITALS: TEMP 97.6
[2020-04-08 23:14] VITALS: BP 97/79; O2SAT 98
--- NOTE | 2020-04-09 08:48 | RAD REPORT ---
EXAM DESCRIPTION: RAD - Chest Single View - 04/08/2020 9:36 pm CLINICAL HISTORY: SOB Chest pain. COMPARISON: Chest Single View dated 01/09/2020; Chest Single View dated 10/31/2016; Chest Single View d ated 03/08/2016; CHEST SINGLE VIEW dated 08/12/2014 FINDINGS: Portable technique limits examination quality. The lungs are grossly clear. The heart is normal in size. No displaced fractures. IMPRESSION: No acute intrathoracic process suspected.
== END 2020-04-08 22:42 | disposition home or self-care (01) ==
LOC: ER 20:53
DX: F41.0 Panic disorder [episodic paroxysmal anxiety] (principal); I10 Essential (primary) hypertension; F31.9 Bipolar disorder, unspecified; E11.9 Type 2 diabetes mellitus without complications; F17.210 Nicotine dependence, cigarettes, uncomplicated; Z88.8 Allergy status to other drugs, medicaments and biological substances
CPT/HCPCS: 96361; 93005; 85025; 80048; 36415; 80320; 83735; 80329 ×2; 81025; 85610; 82947; 80076; 80307 ×8; 81003; 84484; 83880; 71045; 96374; 99285; J7030

== ENCOUNTER 2020-11-28 16:22 | Emergency (ER) | payer OTHER ==
--- OUTSIDE RECORDS SUMMARY | 2020-11-28 16:25 | XMS REPORT | Continuity of Care Document ---
:1980 Author Organization [facility] t Address [address] [place] [address] Care Team Providers Name Role Phone Baldomero Ortiz DO Attending Clinician Problems This patient has no known problems. Allergies, Adverse Reactions, Alerts This patient has no known allergies or adverse reactions. Medications This patient has no known medications. Procedures This patient has no known procedures. Encounters Start End Encounter Admission Attending Care Care Encounter Source Date/Time Date/Time Type Type Clinicians Facility Department ID 2020-08-23 2020-08-23 Patient Angel GAMIRTHA [id number] 00:00:00 00:00:00 Outreach Baldomero [facility] [id number] Santhosh [facility] [id number] [facility] [id number] Results This patient has no known results.
--- NOTE | 2020-11-28 18:18 | RAD REPORT ---
EXAM DESCRIPTION: [place] Single View11/28/2020 6:06 pm CLINICAL HISTORY: Shortness of breath COMPARISON: 2019 FINDINGS: The lungs appear clear of acute infiltrate. The heart is normal size IMPRESSION: No acute abnormalities displayed
--- NOTE | 2020-11-28 18:22 | ER ---
Nurse's Notes [facility] Name: Jodee Rae Age: 40 yrs Sex: Female : 1980 Arrival Date: 11/28/2020 Time: 16:30 Bed 18 Private MD: Diagnosis: Cough;Asthma Presentation: 11/28 16:42 Chief complaint: Patient states: i started with cough and sore throat that started tw2 Thursday. i feel short of breathe. Coronavirus screen: cough unrelated to allergies, difficulty breathing, Client presents with at least one sign or symptom that may indicate coronavirus-19. Standard/surgical mask placed on the client. Provider contacted for isolation considerations. Ebola Screen: Patient denies travel to an Ebola-affected area in the 21 days before illness onset. Initial Sepsis Screen: Does the patient meet any 2 criteria? HR > 90 bpm. No. Patient's initial sepsis screen is negative. Does the patient have a suspected source of infection? No. Patient's initial sepsis screen is negative. Risk Assessment: Do you want to hurt yourself or someone else? Patient reports no desire to harm self or others. Onset of symptoms was November 28, 2020. 16:42 Method Of Arrival: Ambulatory tw2 16:42 Acuity: GERTRUDIS 3 tw2 Triage Assessment: 16:45 General: Appears in no apparent distress. Behavior is calm, cooperative, appropriate tw2 for age. Pain: Denies pain. Respiratory: Reports shortness of breath at rest on exertion cough that is non-productive, persistent. Historical: - Allergies: 16:45 Lisinopril; cough; tw2 16:45 [place] Carbonate; tw2 16:45 PENICILLINS (Upset stomach); tw2 - Home Meds: 16:45 Actos Oral [Active]; atorvastatin Oral [Active]; citalopram oral once daily [Active]; tw2 Seroquel 200 mg Oral tab 1 tab nightly [Active]; loratadine 10 mg Oral tab [Active]; metformin 1,000 mg Oral tab 1 tab 2 times per day [Active]; gabapentin 300 mg Oral cap 1 cap 3 times per day [Active]; hydroxyzine HCl 25 mg Oral tab 1 tab 2 times daily [Active]; Lantus 100 unit/mL Sub-Q soln [Active]; Novolog 100 unit/mL Sub-Q soln [Active]; - PMHx: 16:45 Asthma; Bipolar disorder; Depression; Diabetes - IDDM; Hypertension; tw2 - PSHx: 16:45 ; tw2 - Immunization history:: Adult Immunizations. - Social history:: Smoking status: Patient reports the use of cigarette tobacco products, "occasional". Vital Signs: 16:42 Pulse 108; Resp 18; Temp 97.9; Pulse Ox 99% on R/A; Weight 70.31 kg; Height 5 ft. 1 in. tw2 (154.94 cm); 16:42 Body Mass Index 29.29 (70.31 kg, 154.94 cm) tw2 ED Course: 16:30 Patient arrived in ED. ds1 16:44 Triage completed. tw2 16:46 Arm band placed on. tw2 17:26 Fahad Vicente PA is PHCP. jr8 17:26 Aguila Molina MD is Attending Physician. jr8 17:38 Mechelle Caba, RN is Primary Nurse. ph Administered Medications: No medications were administered Outcome: 18:21 Discharge ordered by . jr8 19:01 Patient left the ED. ph Signatures: Mary Shea ds1 Fahad Vicente PA PA jr8 Mechelle Caba, RN RN ph Isis Gupta RN RN tw2
--- NOTE | 2020-11-28 18:22 | EDPHYS ---
Physician Documentation [facility] Name: Jodee Rae Age: 40 yrs Sex: Female : 1980 Arrival Date: 11/28/2020 Time: 16:30 Bed 18 Private MD: ED Physician Aguila Molina HPI: 11/28 18:05 This 40 yrs old Female presents to ER via Ambulatory with complaints of Cough. jr8 18:05 The patient or guardian reports cough, that is intermittent, described as mild, with no jr8 sputum. Onset: The symptoms/episode began/occurred gradually, 2 day(s) ago. Severity of symptoms: At their worst the symptoms were mild, in the emergency department the symptoms are unchanged. Modifying factors: The symptoms are alleviated by nothing, the symptoms are aggravated by nothing. Associated signs and symptoms: The patient has no apparent associated signs or symptoms. The patient has not experienced similar symptoms in the past. The patient has not recently seen a physician. Historical: - Allergies: 16:45 Lisinopril; cough; tw2 16:45 [place] Carbonate; tw2 16:45 PENICILLINS (Upset stomach); tw2 - Home Meds: 16:45 Actos Oral [Active]; atorvastatin Oral [Active]; citalopram oral once daily [Active]; tw2 Seroquel 200 mg Oral tab 1 tab nightly [Active]; loratadine 10 mg Oral tab [Active]; metformin 1,000 mg Oral tab 1 tab 2 times per day [Active]; gabapentin 300 mg Oral cap 1 cap 3 times per day [Active]; hydroxyzine HCl 25 mg Oral tab 1 tab 2 times daily [Active]; Lantus 100 unit/mL Sub-Q soln [Active]; Novolog 100 unit/mL Sub-Q soln [Active]; - PMHx: 16:45 Asthma; Bipolar disorder; Depression; Diabetes - IDDM; Hypertension; tw2 - PSHx: 16:45 ; tw2 - Immunization history:: Adult Immunizations. - Social history:: Smoking status: Patient reports the use of cigarette tobacco products, "occasional". ROS: 18:05 Eyes: Negative for injury, pain, redness, and discharge, ENT: Negative for injury, jr8 pain, and discharge, Neck: Negative for injury, pain, and swelling, Cardiovascular: Negative for chest pain, palpitations, and edema, Abdomen/GI: Negative for abdominal pain, nausea, vomiting, diarrhea, and constipation, Back: Negative for injury and pain, MS/Extremity: Negative for injury and deformity, Skin: Negative for injury, rash, and discoloration, Neuro: Negative for headache, weakness, numbness, tingling, and seizure. 18:05 Respiratory: Positive for cough, Negative for dyspnea on exertion, shortness of breath, sputum production, wheezing. Exam: 18:05 Constitutional: This is a well developed, well nourished patient who is awake, alert, jr8 and in no acute distress. ENT: Nares patent. No nasal discharge, no septal abnormalities noted. Tympanic membranes are normal and external auditory canals are clear. Oropharynx with no redness, swelling, or masses, exudates, or evidence of obstruction, uvula midline. Mucous membranes moist. Neck: Trachea midline, no thyromegaly or masses palpated, and no cervical lymphadenopathy. Supple, full range of motion without nuchal rigidity, or vertebral point tenderness. No Meningismus. Cardiovascular: Regular rate and rhythm with a normal S1 and S2. No gallops, murmurs, or rubs. Normal PMI, no JVD. No pulse deficits. Respiratory: Lungs have equal breath sounds bilaterally, clear to auscultation and percussion. No rales, rhonchi or wheezes noted. No increased work of breathing, no retractions or nasal flaring. Abdomen/GI: Soft, non-tender, with normal bowel sounds. No distension or tympany. No guarding or rebound. No evidence of tenderness throughout. Back: No spinal tenderness. No costovertebral tenderness. Full range of motion. Skin: Warm, dry with normal turgor. Normal color with no rashes, no lesions, and no evidence of cellulitis. MS/ Extremity: Pulses equal, no cyanosis. Neurovascular intact. Full, normal range of motion. Neuro: Awake and alert, GCS 15, oriented to person, place, time, and situation. Cranial nerves II-XII grossly intact. Motor strength 5/5 in all extremities. Sensory grossly intact. Cerebellar exam normal. Normal gait. Vital Signs: 16:42 Pulse 108; Resp 18; Temp 97.9; Pulse Ox 99% on R/A; Weight 70.31 kg; Height 5 ft. 1 in. tw2 (154.94 cm); 16:42 Body Mass Index 29.29 (70.31 kg, 154.94 cm) tw2 MDM: 17:26 Patient medically screened. jr8 18:05 Data reviewed: vital signs, nurses notes, radiologic studies, plain films. Data jr8 interpreted: Pulse oximetry: on room air is 99 %. Interpretation: normal. Counseling: I had a detailed discussion with the patient and/or guardian regarding: the historical points, exam findings, and any diagnostic results supporting the discharge/admit diagnosis, radiology results, the need for outpatient follow up, a family practitioner, to return to the emergency department if symptoms worsen or persist or if there are any questions or concerns that arise at home. 11/28 17:41 Order name: XRAY Chest (1 view) jr8 11/28 18:19 Order name: RAD; Complete Time: 18:22 EDMS Administered Medications: No medications were administered Disposition: 11/28/20 18:21 Discharged to Home. Impression: Cough, Asthma. - Condition is Stable. - Discharge Instructions: Asthma, Acute Bronchospasm, Cough, Adult. - Prescriptions for Prednisone 20 mg Oral Tablet - take 1 tablet by ORAL route once daily for 5 days; 5 tablet. - Medication Reconciliation Form, Thank You Letter, Antibiotic Education, Prescription Opioid Use form. - Follow up: Private Physician; When: 5 - 6 days; Reason: Recheck today's complaints, Continuance of care, Re-evaluation by your physician. - Problem is new. - Symptoms have improved. Signatures: Dispatcher [employer] EDMS Fahad Vicente PA PA jr8 Mechelle Caba, RN RN ph Isis Gupta RN RN tw2 Corrections: (The following items were deleted from the chart) 19:01 18:21 11/28/2020 18:21 Discharged to Home. Impression: Cough; Asthma. Condition is ph Stable. Forms are Medication Reconciliation Form, Thank You Letter, Antibiotic Education, Prescription Opioid Use. Follow up: Private Physician; When: 5 - 6 days; Reason: Recheck today's complaints, Continuance of care, Re-evaluation by your physician. Problem is new. Symptoms have improved. jr8
[2020-11-28 19:36] VITALS: TEMP 97.9; O2SAT 99
== END 2020-11-28 19:01 | disposition home or self-care (01) ==
LOC: ER 16:22
DX: J45.909 Unspecified asthma, uncomplicated (principal); I10 Essential (primary) hypertension; F31.9 Bipolar disorder, unspecified; Z72.0 Tobacco use; Z79.4 Long term (current) use of insulin; Z88.8 Allergy status to other drugs, medicaments and biological substances
CPT/HCPCS: 71045

== ENCOUNTER 2021-02-03 22:34 | Emergency (ER) | payer OTHER ==
--- OUTSIDE RECORDS SUMMARY | 2021-02-03 22:38 | XMS REPORT | Continuity of Care Document ---
:1980 Author Organization [facility] t Address [address] [place] [address] Care Team Providers Name Role Phone Baldomero [...] Facility Department ID 2020-08-23 2020-08-23 Patient Angel MEMIRTHA [id number] 00:00:00 00:00:00 Outreach Baldomero [facility] [id number] Santhosh [facility] [id number] RAY BROOK [phone] [id number] Results This patient has no known results.
[2021-02-04] MEDS ORDERED: ACETAMINOPHEN 500 MG TAB ONE (00:32)
--- NOTE | 2021-02-04 02:02 | EDPHYS ---
Physician Documentation [facility] Name: Jodee Rae Age: 40 yrs Sex: Female : 1980 Arrival Date: 02/03/2021 Time: 22:36 Bed DX3 Private MD: ED Physician Samuel Rascon HPI: 02/04 01:51 This 40 yrs old Female presents to ER via Ambulatory with complaints of pm1 Breathing Difficulty, Fever. 01:51 The patient presents with sore throat. The patient describes throat pain as constant, pm1 raw. Onset: The symptoms/episode began/occurred today. Severity of symptoms: in the emergency department the symptoms are actually worse. Modifying factors: The symptoms are alleviated by nothing, the symptoms are aggravated by foods, swallowing, Patient's oral intake status: good Denies contact with similarly ill indivduals. Associated signs and symptoms: Pertinent positives: cough, fever, shortness of breath. The patient has not recently seen a physician. Historical: - Allergies: 00:18 Lisinopril; cough; bb 00:18 [place] Carbonate; bb 00:18 PENICILLINS (Upset stomach); bb - Immunization history:: Adult Immunizations unknown. - Social history:: Smoking status: unknown. ROS: 01:51 Cardiovascular: Negative for chest pain, palpitations, and edema. pm1 01:51 Abdomen/GI: Negative for abdominal pain, nausea, vomiting, diarrhea, and constipation, Back: Negative for injury and pain, MS/Extremity: Negative for injury and deformity, Skin: Negative for injury, rash, and discoloration. 01:51 Constitutional: Positive for body aches, fever. 01:51 ENT: Positive for ear pain, sore throat, Negative for drainage from ear(s). 01:51 Respiratory: Positive for cough, shortness of breath. 01:51 All other systems are negative. Exam: 01:51 Constitutional: This is a well developed, well nourished patient who is awake, alert, pm1 and in no acute distress. Head/Face: Normocephalic, atraumatic. 01:51 Skin: Warm, dry with normal turgor. Normal color with no rashes, no lesions, and no evidence of cellulitis. MS/ Extremity: Pulses equal, no cyanosis. Neurovascular intact. Full, normal range of motion. 01:51 ENT: Exam is negative for acute changes, External ear(s): are unremarkable, Ear canal(s): are normal, TM's: are normal, Posterior pharynx: Tonsils: bilaterally enlarged, with erythema, no exudate, no ulcerations, peritonsillar mass, is not appreciated. 01:51 Cardiovascular: Exam negative for acute changes, Rate: normal, Rhythm: regular, Pulses: no pulse deficits are appreciated. 01:51 Respiratory: Exam negative for acute changes, respiratory distress, shortness of breath, Breath sounds: are clear throughout. 01:51 Neuro: Exam negative for acute changes, Orientation: is normal, Mentation: is normal, Motor: is normal, moves all fours. Vital Signs: 00:16 BP 118 / 80; Pulse 123; Resp 20 S; Temp 102.8(O); Pulse Ox 100% on R/A; Weight 68.04 kg bb (R); Height 5 ft. 1 in. (154.94 cm) (R); Pain 10/10; 01:22 Temp 99.4(O); bb 00:16 Body Mass Index 28.34 (68.04 kg, 154.94 cm) bb MDM: 01:38 Patient medically screened. pm1 01:51 Data reviewed: vital signs. Data interpreted: Pulse oximetry: on room air is 100 %. pm1 Interpretation: normal. Counseling: I had a detailed discussion with the patient and/or guardian regarding: the historical points, exam findings, and any diagnostic results supporting the discharge/admit diagnosis, lab results, the need for outpatient follow up. 02:00 ED course: Patient would like to go home now. Only have results for strep currently. pm1 Will discharge patient home with antibiotics. 02/04 00:11 Order name: Strep; Complete Time: 01:37 bb Administered Medications: 00:11 Drug: Tylenol 1000 mg Route: PO; bb 01:22 Follow up: Response: Temperature is decreased bb Disposition: 05:15 Co-signature as Attending Physician, Samuel Rascon MD. [email or web address] Disposition Summary: 02/04/21 02:02 Discharge Ordered Location: Home pm1 Problem: new pm1 Symptoms: have improved pm1 Condition: Stable pm1 Diagnosis - Streptococcal pharyngitis pm1 Followup: pm1 - With: Emergency Department - When: As needed - Reason: Worsening of condition Followup: pm1 - With: Private Physician - When: 2 - 3 days - Reason: Recheck today's complaints, Continuance of care, Re-evaluation by your physician Discharge Instructions: - Discharge Summary Sheet pm1 - Strep Throat, Adult pm1 Forms: - Medication Reconciliation Form pm1 - Thank You Letter pm1 - Antibiotic Education pm1 - Prescription Opioid Use pm1 Prescriptions: - Zithromax Z-Daniel 250 mg Oral Tablet - take 1 tablet by ORAL route as directed for 5 days Day 1 - take two (2) tablets pm1 one time. Day 2, 3, 4 , 5 take one (1) tablet once daily.; 6 tablet; Refills: 0, Product Selection Permitted Signatures: Dispatcher [employer] EDVickie Haque RN RN Marcial Ortiz ORE PUNCHER ORE PUNCHER pm1 Samuel Rascon MD MD [email or web address] Corrections: (The following items were deleted from the chart) 00:22 00:12 Influenza Screen (A \T\ B)+BA.LAB.BRZ ordered. EDMS EDMS 00:22 00:12 CORONAVIRUS+MR.LAB.BRZ ordered. EDMS EDMS
--- NOTE | 2021-02-04 02:02 | ER ---
Nurse's Notes [facility] Name: Jodee Rae Age: 40 yrs Sex: Female : 1980 Arrival Date: 02/03/2021 Time: 22:36 Bed DX3 Private MD: Diagnosis: Streptococcal pharyngitis Presentation: 02/04 00:16 Chief complaint: Patient states: she has fever, ear pain, difficulty breathing since bb this morning. Coronavirus screen: difficulty breathing, fever, Client presents with at least one sign or symptom that may indicate coronavirus-19. Standard/surgical mask placed on the client. Ebola Screen: No symptoms or risks identified at this time. Initial Sepsis Screen: Does the patient meet any 2 criteria? No. Patient's initial sepsis screen is negative. Does the patient have a suspected source of infection? No. Patient's initial sepsis screen is negative. Risk Assessment: Do you want to hurt yourself or someone else? Patient reports no desire to harm self or others. Onset of symptoms was February 04, 2021. 00:16 Method Of Arrival: Ambulatory bb 00:16 Acuity: GERTRUDIS 3 bb Historical: - Allergies: 00:18 Lisinopril; cough; bb 00:18 [place] Carbonate; bb 00:18 PENICILLINS (Upset stomach); bb - Immunization history:: Adult Immunizations unknown. - Social history:: Smoking status: unknown. Screenin:02 Abuse screen: Denies threats or abuse. Nutritional screening: No deficits noted. em Tuberculosis screening: No symptoms or risk factors identified. Fall Risk None identified. Assessment: 02:06 General: Appears in no apparent distress. uncomfortable, Behavior is calm, cooperative, em appropriate for age. Pain: Complains of pain in neck. Neuro: Level of Consciousness is awake, alert, obeys commands, Oriented to person, place, time, situation. Cardiovascular: Capillary refill < 3 seconds Patient's skin is warm and dry. Rhythm is regular. Respiratory: Airway is patent Respiratory effort is even, unlabored, Respiratory pattern is regular, symmetrical. EENT: Reports difficulty swallowing. Derm: Skin is intact, is healthy with good turgor, Skin is pink, warm \T\ dry. Musculoskeletal: Capillary refill < 3 seconds, Range of motion: intact in all extremities. Vital Signs: 00:16 BP 118 / 80; Pulse 123; Resp 20 S; Temp 102.8(O); Pulse Ox 100% on R/A; Weight 68.04 kg bb (R); Height 5 ft. 1 in. (154.94 cm) (R); Pain 10/10; 01:22 Temp 99.4(O); bb 00:16 Body Mass Index 28.34 (68.04 kg, 154.94 cm) bb ED Course: 02/03 22:36 Patient arrived in ED. 02/04 00:18 Triage completed. bb 00:18 Arm band placed on. Antipyretics given from triage as ordered by an ER provider. Labs bb ordered per protocol. 01:36 Marcial Hawkins NP is PHCP. pm1 01:36 Samuel Rascon MD is Attending Physician. pm1 02:01 Alphonso Betancourt, RN is Primary Nurse. em 02:02 Patient has correct armband on for positive identification. em 02:02 No provider procedures requiring assistance completed. Patient did not have IV access em during this emergency room visit. Administered Medications: 00:11 Drug: Tylenol 1000 mg Route: PO; bb 01:22 Follow up: Response: Temperature is decreased bb Outcome: 02:02 Discharge ordered by MD. pm1 02:07 Discharged to home ambulatory. em 02:07 Condition: stable 02:07 Discharge instructions given to patient, Instructed on discharge instructions, follow up and referral plans. medication usage, Demonstrated understanding of instructions, follow-up care, medications, Prescriptions given X 1. 02:07 Patient left the ED. em Signatures: Alphonso Betancourt RN RN Vickie Mendoza RN RN Marcial Hawkins NP RN [facility] pm1 Adriana Aguila
[2021-02-04 02:14] VITALS: BP 118/80; O2SAT 100
[2021-02-04 02:16] VITALS: TEMP 99.4
[2021-02-04 02:19] LABS: SARS-COV-2 RT PCR NEGATIVE (NEGATIVE)
== END 2021-02-04 02:07 | disposition home or self-care (01) ==
LOC: ER 22:34
DX: J02.0 Streptococcal pharyngitis (principal); Z88.0 Allergy status to penicillin; Z88.8 Allergy status to other drugs, medicaments and biological substances; Z20.822 Contact with and (suspected) exposure to COVID-19
CPT/HCPCS: 87081; 0240U; 99283

== ENCOUNTER 2021-06-25 17:06 | Emergency (ER) | payer OTHER ==
--- OUTSIDE RECORDS SUMMARY | 2021-06-25 17:09 | XMS REPORT | Continuity of Care Document ---
:1980 Author Organization [facility] t Address [address] [place] [address] Care Team Providers Name Role Phone Baldomero Ortiz DO Attending Clinician Payers Payer Name Policy Type Policy Number Effective Date Expiration Date S ource Advance Directives Directive Decision Effective Termination Comments Source Date Date Healthcare Agents on N/A [facility] ersity FileNameRelationshipHealthcare [facility] Agent Medical RelationshipCommunicationAngel Branch SolisOtherHealth Care [phone] (Home)Namrata HauserMotherFirst Alternate Health Care [phone] (Home) Problems Condition Condition Condition Status Onset Resolution Last Treating Co mments Source Name Details Category Date Date Treatment Clinician Date Other Other Disease Active 2018-06 [facility] general general 2-03 [place] of counseling [place] advice and advice 00 Vt dical for for Branch contracept contracept riri riri management management History of History of Disease Active 2018-06 U nivers tubal tubal 2-03 ity of ligation ligation 00:00: [address] Branch History of History of Disease Active 2018-06 U nivers hypertensi hypertensi 2-03 it y of on on 00:: [address] Branch Obesity Obesity Disease Active Univers (BMI (BMI 8-16 ity of 30-39.9) 30-39.9) 00:00: [address] Branch Diabetes Diabetes Disease Active Unive rs type 2, type 2, 3-26 ity of uncontroll uncontroll [place] 00 Medical [facility] Cervical Cervical Disease Active 2016-06 Unive rs polyp polyp 2-04 ity of 00:00: [place] [facility] History of History of Disease Active U nivers drug abuse drug abuse 18 it y of 00:00: [place] [facility] History of History of Disease Active U nivers alcohol alcohol 02-23 ity of abuse abuse 00:00: [place] [facility] Depression Depression Disease Active U nivers , , 918 ity of unspecifie unspecifie 00:[place] 00 Medical depression depression Br anch type type Bipolar Bipolar Disease Active Univers affective affective 02-23 ity of disorder, disorder, 00:00: [place] remission remission [facility] status status Branch unspecifie unspecifie d d History of History of Disease Active U nivers tobacco tobacco 02-23 ity of use use 00:00: [place] [facility] Allergies, Adverse Reactions, Alerts Allergy Allergy Status Severity Reaction(s) Onset Inactive Treating Comm ents Source Name Type Date Date Clinician [place] Propensi Active Rash Univers ty to 7-01 ity of adverse 00:00: [place] reaction [facility] Lisinopr Propensi Active Cough Univer s il ty to 918 ity of adverse 00:00: [place] reaction [facility] Social History Social Habit Start Date Stop Date Quantity Comments Source Cigarette 2019-05-10 2019-05-10 University of pack-years 00:00:00 00:00:00 [facility] Tobacco use and 2019-05-10 2019-05-10 Never used Universit y of exposure 00:00:00 00:00:00 [facility] Alcohol intake 2019-05-10 2019-05-10 Current University of 00:00:00 00:00:00 non-drinker of [facility] alcohol Branch (finding) Cigarettes smoked 2019-05-10 2019-05-10 Univers ity of current (pack per 00:00:00 00:00:00 [facility] [place] [facility] ) - Reported Branch History of tobacco 2017-02-20 Cigarette Smoker University of use 00:00:00 [facility] Sex Assigned At [birth year] Universit y of 00:00:00 00:00:00 [facility] Smoking Status Start Date Stop Date Source Current every day smoker 2019-05-10 00:00:00 Uni versity of [facility] Medications Ordered Filled Start Stop Current Ordering Indication Dosage Frequency Signature Comments Components Source Medication Medication Date Date Medication? Clinician (SIG) Name Name metFORMIN 2018-06 Yes 1000mg Take 1,000 Univers 1,000 mg 2-03 mg by ity of tablet 19:19: mouth 2 [place] 20 (two) Medical times Branch daily with meals. levonorgest 2018- Yes [id number] 1{tbl} Take 1 Univers rel-ethinyl 2-03 tablet by ity of estradiol 00:00: mouth [place] (SRONYX) 00 daily. Medical 0.1-20 Branch mg-mcg per tablet hydrOXYzine 2018- Yes 25mg Take 25 mg Univers 25 mg 6-05 by mouth 2 ity of capsule 00:00: (two) [place] 00 times Medical daily. Branch triamcinolo Yes 1{dose} Apply 1 Univers ne 6-04 Dose to ity of acetonide 00:00: [place] 0.1 % cream 00 area(s) 2 Med ical (two) Branch times daily as needed. pioglitazon Yes 45mg Take 45 mg Univers e 45 mg 6-03 by mouth ity of tablet 00:00: daily. [address] DULoxetine Yes 30mg Take 30 mg U nivers 30 mg 5-26 by mouth ity of capsule 00:00: daily. [address] LEVEMIR Yes 80U Inject 80 Unive rs FLEXTOUCH 1-30 Units into ity of U-100 00:00: the skin [place] INSULN 100 00 every Medical unit/mL (3 morning. Branc h mL) injection gabapentin 2018- Yes TAKE 1 Unive rs 300 mg 1-15 CAPSULE BY ity of capsule 00:00: MOUTH [place] [address] THREE Medical TIMES A Branch DAY citalopram 2017- Yes 40mg Take 40 mg U nivers 40 mg 7-15 by mouth ity of tablet 00:00: daily. [address] Immunizations Ordered Filled Immunization Date Status Comments Sourc e Immunization Name Name Influenza Virus 2019-05-10 Completed Universit y of Vaccine Quad .5 mL 00:00:00 [facility] IM 6+ MO Branch TDAP 2017-07-20 Completed University of 00:00:00 [facility] Influenza Virus 2017-04-09 Completed Universit y of Vaccine Quad IM 3+ 00:00:00 [facility] Branch Procedures This patient has no known procedures. Encounters Start End Encounter Admission Attending Care Care Encounter Source Date/Time Date/Time Type Type Clinicians Facility Department ID 2020-08-23 2020-08-23 Patient Angel GAMIRTHA [id number] 00:00:00 00:00:00 Outreach [facility] [id number] [facility] [id number] [facility] [id number] 2020-08-23 2020-08-23 Patient Angel TRA [id number] Univers 00:00:00 00:00:00 Outreach [facility] [id number] [facility] [id number] [facility] [phone] Vt dical [address] [place] Results This patient has no known results.
[2021-06-25] MEDS ORDERED: ONDANSETRON 4 MG/2 ML VIAL ONE (18:00)
[2021-06-25] MEDS ORDERED: MORPHINE 4 MG/ML SYR ONE (18:00)
[2021-06-25] MEDS ORDERED: NA CHLORIDE 0.9% 1,000 ML ONE (18:00)
[2021-06-25 18:11] LABS: Urine Blood Trace-intact (Negative); Urine Glucose 2+ (Negative); Urine Protein Negative (Negative); Urine Specific Gravity 1.015 (1.005-1.030)
[2021-06-25] MEDS ORDERED: INSULIN -REGULAR HUMAN 50 UNIT/0.5 ML ML ONE (18:15)
[2021-06-25 18:20] LABS: Urine Specific Gravity/Preg 1.015 (1.005-1.030)
[2021-06-25 18:23] LABS: Absolute Lymphocytes (CBC) 0.6 K/uL (0.7-4.9); Hematocrit 41.8 % (36.0-45.0); Lymphocytes % 9.4 % (15.3-44.8); MPV 8.8 fL (7.6-11.3); RBC Red Blood Cell Count 4.61 M/uL (3.86-4.86)
[2021-06-25 18:24] LABS: Protime INR 0.91
[2021-06-25 18:29] LABS: Barbiturates NEGATIVE (NEGATIVE); Benzodiazepines NEGATIVE (NEGATIVE); Cocaine NEGATIVE (NEGATIVE); METHAMPHETAM POSITIVE (NEGATIVE); Methadone NEGATIVE (NEGATIVE); Opiates NEGATIVE (NEGATIVE); Phencyclidine NEGATIVE (NEGATIVE); THC Cannibis NEGATIVE (NEGATIVE)
[2021-06-25 18:40] LABS: Arterial Blood Carboxyhemoglob 1.8 % (0-1.5); Blood Gas Oxyhemoglobin 94.3 % (94-97)
--- NOTE | 2021-06-25 18:40 | RAD REPORT ---
EXAM DESCRIPTION: [place] Single View06/25/2021 6:28 pm CLINICAL HISTORY: cough COMPARISON: November 2020 FINDINGS: The lungs appear clear of acute infiltrate. The heart is normal size IMPRESSION: No acute abnormalities displayed
[2021-06-25 18:43] LABS: ALT/SGPT 85 U/L (12-78); Albumin 3.5 g/dL (3.4-5.0); Alkaline Phosphatase 110 U/L (45-117); BUN Blood Urea Nitrogen 6 mg/dL (7-18); Bicarbonate 24 mmol/L (21-32); Bilirubin Direct 0.1 mg/dL (0-0.2); Bilirubin Total 0.8 mg/dL (0.2-1.0); Glucose Level 334 mg/dL (74-106); Lipase 130 U/L (73-393); NT PRO-BNP 92 pg/mL (<125); Protein, Total 7.5 g/dL (6.4-8.2); Sodium Level 131 mmol/L (136-145)
[2021-06-25 18:45] LABS: AST/SGOT 60 U/L (15-37); Magnesium 1.7 mg/dL (1.8-2.4); Potassium 3.7 mmol/L (3.5-5.1)
[2021-06-25] MEDS ORDERED: MAGNESIUM SULFATE 1 gm IVPB 1 GM/100 ML BAG IV ONE (20:03)
--- NOTE | 2021-06-25 20:03 | ER ---
Nurse's Notes [facility] Name: Jodee Rae Age: 40 yrs Sex: Female : 1980 Arrival Date: 06/25/2021 Time: 17:06 Bed 6 Private MD: Diagnosis: Type 1 diabetes mellitus with hyperglycemia;Essential (primary) hypertension;Hypomagnesemia;Abuse of other non-psychoactive substances;Adverse effect of amphetamines Presentation: 06/25 17:07 Chief complaint: Patient states: bodyaches x over a few months, just got approved for spicer pain management doctor. pt has not been on insulin x over 1 year bc she does not like insulin. Coronavirus screen: Vaccine status: Patient reports being unvaccinated. Ebola Screen: Patient denies travel to an Ebola-affected area in the 21 days before illness onset. Initial Sepsis Screen: Does the patient meet any 2 criteria? No. Patient's initial sepsis screen is negative. Does the patient have a suspected source of infection? No. Patient's initial sepsis screen is negative. Risk Assessment: Do you want to hurt yourself or someone else? Patient reports no desire to harm self or others. Onset of symptoms was 2020. 17:07 Method Of Arrival: EMS: [facility] 17:07 Acuity: GERTRUDIS 3 spicer Triage Assessment: 17:09 General: Appears uncomfortable, Behavior is agitated. Pain: Complains of pain in face, spicer scalp, back, buttocks, chest, abdomen, pelvis, right arm, left arm, right leg and left leg. 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 - Irregular menses spicer Historical: - Allergies: 17:09 Lisinopril; cough; spicer 17:09 [place] Carbonate; spicer 17:09 PENICILLINS (Upset stomach); spicer - Home Meds: 17:09 Actos Oral [Active]; atorvastatin Oral [Active]; citalopram oral once daily [Active]; spicer gabapentin 300 mg Oral cap 1 cap 3 times per day [Active]; hydroxyzine HCl 25 mg Oral tab 1 tab 2 times daily [Active]; Lantus 100 unit/mL Sub-Q soln [Active]; loratadine 10 mg Oral tab [Active]; metformin 1,000 mg Oral tab 1 tab 2 times per day [Active]; Novolog 100 unit/mL Sub-Q soln [Active]; Seroquel 200 mg Oral tab 1 tab nightly [Active]; - PMHx: 17:09 Asthma; Bipolar disorder; Depression; Diabetes - IDDM; Hypertension; spicer - Immunization history:: Adult Immunizations up to date. - Social history:: Smoking status: Patient reports the use of cigarette tobacco products, smokes one-half pack cigarettes per day. - Family history:: not pertinent. Screenin:11 Abuse screen: Denies threats or abuse. Denies injuries from another. Nutritional spicer screening: No deficits noted. Tuberculosis screening: No symptoms or risk factors identified. Fall Risk None identified. Vital Signs: 17:07 BP 118 / 84; Pulse 112; Resp 18; Temp 98.9(O); Pulse Ox 96% on R/A; Weight 68.04 kg; spicer Height 5 ft. 1 in. (154.94 cm); 18:18 BP 121 / 86; Pulse 110; Resp 14; Pulse Ox 96% on R/A; bp 21:15 BP 104 / 63; Pulse 106; Resp 17; Pulse Ox 97% ; sm5 21:50 BP 122 / 90; Pulse 107; sf1 17:07 Body Mass Index 28.34 (68.04 kg, 154.94 cm) spicer ED Course: 17:06 Patient arrived in ED. ds1 17:09 Triage completed. spicer 17:09 Arm band placed on right wrist. spicer 17:11 Bed in low position. spicer 17:11 No provider procedures requiring assistance completed. spicer 17:39 Tyrone Sotomayor MD is Attending Physician. bre 17:57 Rik Preciado, FRANKIE is Primary Nurse. bp 18:28 XRAY Chest (1 view) In Process Unspecified. EDMS 20:02 Dora Whiting MD is Referral Physician. bre 21:51 IV discontinued, intact, bleeding controlled, No redness/swelling at site. Pressure sf1 dressing applied. Administered Medications: 18:10 Drug: NS 0.9% 1000 ml Route: IV; Rate: 1 bolus; Site: right antecubital; bp 18:10 Drug: morphine 4 mg Route: IVP; Site: right antecubital; bp 18:10 Drug: Zofran (Ondansetron) 4 mg Route: IVP; Site: right antecubital; bp 18:20 Drug: NS 0.9% 1000 ml Route: IV; Rate: 1 bolus; Site: right antecubital; bp 18:20 Drug: Insulin Regular Human 10 units {Co-Signature: nayan (Montserrat Alexander RN).} Route: bp IVP; Site: right antecubital; 20:05 Drug: Magnesium Sulfate 1 grams Route: IVPB; Infused Over: 30 mins; Site: right sm5 antecubital; Outcome: 20:03 Discharge ordered by MD. díaz 21:51 Discharged to home via wheelchair. sf1 21:51 Condition: good 21:51 Discharge instructions given to patient, Instructed on discharge instructions, follow up and referral plans. Demonstrated understanding of instructions, follow-up care, medications, Prescriptions given X 3. 21:51 Patient left the ED. sf1 Signatures: Dispatcher [employer] Tyrone Conde MD MD cha Sanford, Demi ds1 Rik Preciado RN RN bp Mazur, Sarah, RN RN [facility] Montserrat Alexander RN RN ha Fillers, Samantha, RN RN sf1 Montserrat spicer
--- NOTE | 2021-06-25 20:04 | EDPHYS ---
Physician Documentation [facility] Name: Jodee Rae Age: 40 yrs Sex: Female : 1980 Arrival Date: 06/25/2021 Time: 17:06 Bed 6 Private MD: Tyrone Conte HPI: 06/25 18:32 This 40 yrs old Female presents to ER via EMS with complaints of Pain All over.bre 18:32 The patient or guardian complains of pain, that is chronic. The complaints affect the bre right bicep, dorsal aspect of right forearm, right tricep and palmar aspect of right forearm, left bicep, dorsal aspect of left forearm, left tricep and palmar aspect of left forearm. Context: CHRONIC , NO INJURY. Onset: The symptoms/episode began/occurred 4 week(s) ago. Treatment prior to arrival includes: no previous treatment. Modifying factors: The symptoms are alleviated by nothing. remaining still, the symptoms are aggravated by lifting weight, UNCONTROLLED BLOOD GLUCOSE. The patient presents with decreased range of motion, pain, that is chronic. Context: NO INJURY. Modifying factors: The symptoms are alleviated by remaining still, the symptoms are aggravated by movement. 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 - Irregular menses spicer Historical: - Allergies: 17:09 Lisinopril; cough; spicer 17:09 [place] Carbonate; spicer 17:09 PENICILLINS (Upset stomach); spicer - Home Meds: 17:09 Actos Oral [Active]; atorvastatin Oral [Active]; citalopram oral once daily [Active]; spicer gabapentin 300 mg Oral cap 1 cap 3 times per day [Active]; hydroxyzine HCl 25 mg Oral tab 1 tab 2 times daily [Active]; Lantus 100 unit/mL Sub-Q soln [Active]; loratadine 10 mg Oral tab [Active]; metformin 1,000 mg Oral tab 1 tab 2 times per day [Active]; Novolog 100 unit/mL Sub-Q soln [Active]; Seroquel 200 mg Oral tab 1 tab nightly [Active]; - PMHx: 17:09 Asthma; Bipolar disorder; Depression; Diabetes - IDDM; Hypertension; spicer - Immunization history:: Adult Immunizations up to date. - Social history:: Smoking status: Patient reports the use of cigarette tobacco products, smokes one-half pack cigarettes per day. - Family history:: not pertinent. ROS: 18:32 Constitutional: Negative for fever, chills, and weight loss, Eyes: Negative for injury, bre pain, redness, and discharge, ENT: Negative for injury, pain, and discharge, Neck: Negative for injury, pain, and swelling, Cardiovascular: Negative for chest pain, palpitations, and edema, Respiratory: Negative for shortness of breath, cough, wheezing, and pleuritic chest pain, Abdomen/GI: Negative for abdominal pain, nausea, vomiting, diarrhea, and constipation, Back: Negative for injury and pain, : Negative for injury, bleeding, discharge, and swelling, MS/Extremity: Negative for injury and deformity, Skin: Negative for injury, rash, and discoloration, Neuro: Negative for headache, weakness, numbness, tingling, and seizure, Psych: Negative for depression, anxiety, suicide ideation, homicidal ideation, and hallucinations, Allergy/Immunology: Negative for hives, rash, and allergies, Endocrine: Negative for neck swelling, polydipsia, polyuria, polyphagia, and marked weight changes, Hematologic/Lymphatic: Negative for swollen nodes, abnormal bleeding, and unusual bruising. Exam: 18:32 Constitutional: This is a well developed, well nourished patient who is awake, alert, bre and in no acute distress. Head/Face: Normocephalic, atraumatic. Eyes: Pupils equal round and reactive to light, extra-ocular motions intact. Lids and lashes normal. Conjunctiva and sclera are non-icteric and not injected. Cornea within normal limits. Periorbital areas with no swelling, redness, or edema. ENT: Nares patent. No nasal discharge, no septal abnormalities noted. Tympanic membranes are normal and external auditory canals are clear. Oropharynx with no redness, swelling, or masses, exudates, or evidence of obstruction, uvula midline. Mucous membranes moist. Neck: Trachea midline, no thyromegaly or masses palpated, and no cervical lymphadenopathy. Supple, full range of motion without nuchal rigidity, or vertebral point tenderness. No Meningismus. Chest/axilla: Normal chest wall appearance and motion. Nontender with no deformity. No lesions are appreciated. Respiratory: Lungs have equal breath sounds bilaterally, clear to auscultation and percussion. No rales, rhonchi or wheezes noted. No increased work of breathing, no retractions or nasal flaring. Abdomen/GI: Soft, non-tender, with normal bowel sounds. No distension or tympany. No guarding or rebound. No evidence of tenderness throughout. Back: No spinal tenderness. No costovertebral tenderness. Full range of motion. Skin: Warm, dry with normal turgor. Normal color with no rashes, no lesions, and no evidence of cellulitis. MS/ Extremity: Pulses equal, no cyanosis. Neurovascular intact. Full, normal range of motion. Neuro: Awake and alert, GCS 15, oriented to person, place, time, and situation. Cranial nerves II-XII grossly intact. Motor strength 5/5 in all extremities. Sensory grossly intact. Cerebellar exam normal. Normal gait. Psych: Awake, alert, with orientation to person, place and time. Behavior, mood, and affect are within normal limits. 18:32 Cardiovascular: Rate: tachycardic, actual rate is 110 bpm, Rhythm: regular, Pulses: Pulses are 4+ in bilateral radial, brachial, femoral, popliteal, posterior tibial and and dorsalis pedis arteries.. Heart sounds: normal, normal S1and S2, no S3 or S4, no murmur, no rub, no gallop, Edema: is not appreciated, JVD: is not appreciated. Vital Signs: 17:07 BP 118 / 84; Pulse 112; Resp 18; Temp 98.9(O); Pulse Ox 96% on R/A; Weight 68.04 kg; spicer Height 5 ft. 1 in. (154.94 cm); 18:18 BP 121 / 86; Pulse 110; Resp 14; Pulse Ox 96% on R/A; bp 21:15 BP 104 / 63; Pulse 106; Resp 17; Pulse Ox 97% ; sm5 21:50 BP 122 / 90; Pulse 107; sf1 17:07 Body Mass Index 28.34 (68.04 kg, 154.94 cm) spicer MDM: 17:39 Patient medically screened. bre 18:35 Differential diagnosis: contusion, tendonitis. Data reviewed: vital signs, nurses bre notes, lab test result(s), EKG, radiologic studies, plain films. Data interpreted: hall monitor: rate is 110 beats/min, rhythm is regular, Pulse oximetry: on room air is 96 %. Test interpretation: by ED physician or midlevel provider: ECG, plain radiologic studies. Counseling: I had a detailed discussion with the patient and/or guardian regarding: the historical points, exam findings, and any diagnostic results supporting the discharge/admit diagnosis, lab results, radiology results. 06/25 17:42 Order name: Basic Metabolic Panel [facility] 06/25 17:42 Order name: CBC with Diff [facility] 06/25 17:42 Order name: LFT's; Complete Time: 19:52 [facility] 06/25 17:42 Order name: Magnesium; Complete Time: 19:52 [facility] 06/25 17:42 Order name: NT PRO-BNP; Complete Time: 19:52 [facility] 06/25 17:42 Order name: PT-INR; Complete Time: 19:52 [facility] 06/25 17:42 Order name: Troponin HS; Complete Time: 19:52 [facility] 06/25 17:42 Order name: Lipase; Complete Time: 19:52 [facility] 06/25 17:42 Order name: UDS; Complete Time: 19:52 [facility] 06/25 17:43 Order name: Basic Metabolic Panel; Complete Time: 19:52 [facility] 06/25 17:43 Order name: CBC with Automated Diff; Complete Time: 19:52 [facility] 06/25 18:11 Order name: Urine Dipstick-Ancillary; Complete Time: 18:19 [facility] 06/25 18:14 Order name: Urine --Ancillary (enter results); Complete Time: 19:52 06/25 18:19 Order name: Ketone, Serum; Complete Time: 19:52 [facility] 06/25 17:42 Order name: XRAY Chest (1 view); Complete Time: 19:52 [facility] 06/25 17:42 Order name: EKG; Complete Time: 17:43 [facility] 06/25 17:42 Order name: Cardiac monitoring; Complete Time: 18:17 [facility] 06/25 17:42 Order name: EKG - Nurse/Tech; Complete Time: 18:43 [facility] 06/25 17:42 Order name: IV Saline Lock; Complete Time: 18:17 [facility] 06/25 17:42 Order name: Labs collected and sent; Complete Time: 18:17 [facility] 06/25 17:42 Order name: O2 Per Protocol; Complete Time: 18:17 [facility] 06/25 17:42 Order name: O2 Sat Monitoring; Complete Time: 18:17 [facility] 06/25 17:42 Order name: Urine Dipstick-Ancillary (obtain specimen); Complete Time: 18:17 [facility] 06/25 18:19 Order name: ABG; Complete Time: 19:52 [facility] 06/25 17:42 Order name: Urine Test (obtain specimen); Complete Time: 18:16 bre Administered Medications: 18:10 Drug: NS 0.9% 1000 ml Route: IV; Rate: 1 bolus; Site: right antecubital; bp 18:10 Drug: morphine 4 mg Route: IVP; Site: right antecubital; bp 18:10 Drug: Zofran (Ondansetron) 4 mg Route: IVP; Site: right antecubital; bp 18:20 Drug: NS 0.9% 1000 ml Route: IV; Rate: 1 bolus; Site: right antecubital; bp 18:20 Drug: Insulin Regular Human 10 units {Co-Signature: nayan (Montserrat Alexander RN).} Route: bp IVP; Site: right antecubital; 20:05 Drug: Magnesium Sulfate 1 grams Route: IVPB; Infused Over: 30 mins; Site: right sm5 antecubital; Disposition Summary: 06/25/21 20:03 Discharge Ordered Location: Home bre Problem: new bre Symptoms: have improved bre Condition: Stable bre Diagnosis - Type 1 diabetes mellitus with hyperglycemia bre - Essential (primary) hypertension bre - Hypomagnesemia bre - Abuse of other non-psychoactive substances bre - Adverse effect of amphetamines bre Followup: bre - With: Private Physician - When: 2 - 3 days - Reason: Recheck today's complaints, Continuance of care, Re-evaluation by your physician Followup: bre - With: Dora Whiting MD - When: 2 - 3 days - Reason: Recheck today's complaints, Re-evaluation by your physician Discharge Instructions: - Discharge Summary Sheet bre - Type 1 Diabetes Mellitus, Diagnosis, Adult bre - Hyperglycemia bre - Hypertension, Adult bre - Hypomagnesemia bre - Diabetic Nephropathy bre - Hypertension, Adult, [id number] bre - Diabetic Neuropathy bre - Blood Glucose Monitoring, Adult bre - Diabetes Mellitus and Nutrition, Adult bre - Aspirin and Your Heart bre - Managing Your Hypertension bre - Insulin Treatment for Diabetes Mellitus bre - Type 1 Diabetes Mellitus, Self Care, Adult bre - Type 1 Diabetes Mellitus, Self Care, Adult, [id number] [facility] Forms: - Medication Reconciliation Form [facility] - Thank You Letter bre - Antibiotic Education [facility] - Prescription Opioid Use [facility] Prescriptions: - Lantus U-100 Insulin - inject 30 unit by SUBCUTANEOUS route once daily; 1 Pre-filled Pen Syringe; [facility] Refills: 0, Product Selection Permitted - Norvasc 5 mg Oral Tablet - take 1 tablet by ORAL route once daily; 20 tablet; Refills: 0, Product [facility] Selection Permitted - Metformin 500 mg Oral Tablet - take 1 tablet by ORAL route every 12 hours for 30 days Then take 1 tablet with [facility] morning meals AND evening meals; 60 tablet; Refills: 0, Product Selection Permitted Signatures: Dispatcher [employer] EDTyrone Moeller MD MD cha Peltier, Brian RN Rachel Llamas RN RN [facility] Montserrat Alexander RN RN ha Heather Au-Stager RN ha
[2021-06-25 21:56] VITALS: TEMP 98.9
[2021-06-25 21:59] VITALS: O2SAT 97
[2021-06-25 22:01] VITALS: BP 122/90
--- NOTE | 2021-06-27 03:55 | EKG ---
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
== END 2021-06-25 21:51 | disposition home or self-care (01) ==
LOC: ER 17:06
DX: E10.65 Type 1 diabetes mellitus with hyperglycemia (principal); E83.42 Hypomagnesemia; F55.8 Abuse of other non-psychoactive substances; T43.625A Adverse effect of amphetamines, initial encounter; I10 Essential (primary) hypertension; Z79.4 Long term (current) use of insulin; F31.9 Bipolar disorder, unspecified; Z88.0 Allergy status to penicillin; Z88.5 Allergy status to narcotic agent; Z88.8 Allergy status to other drugs, medicaments and biological substances
CPT/HCPCS: 93005; 85025; 80048; 36415; 82010; 83735; 81025; 85610; 80076; 81003; 84484; 83690; 83880; 80307; 71045; 82805; 96375; 96374; 99284; J3475; J7030; J2405

== ENCOUNTER 2021-10-26 11:51 | Emergency (ER) | payer OTHER ==
--- OUTSIDE RECORDS SUMMARY | 2021-10-26 11:53 | XMS REPORT | Continuity of Care Document ---
:1980 Author Organization [facility] t Address [address] [place] [address] Care Team Providers Name Role Phone Baldomero Ortiz DO Attending Clinician Payers Payer Name Policy Type Policy Number Effective Date Expiration Date S ource Problems Condition Condition Condition Status Onset Resolution Last Treating Co mments Source Name Details Category Date Date Treatment Clinician Date Other Other Disease Active 2018-06 Univers general general 2-03 [place] of counseling [place] and advice 00 Al dical for [facility] contracept contracept riri riri management management History of History of Disease Active 2018-06 U dinesh tubal tubal 2-03 ity of ligation ligation 00:00: [address] History of History of Disease Active 2018-06 U dinesh hypertensi hypertensi 2-03 it y of on on 00:00: [address] Obesity Obesity Disease Active Univers (BMI (BMI 8-16 ity of 30-39.9) 30-39.9) 00:00: [address] Diabetes Diabetes Disease Active Unive rs type 2, type 2, 3-26 [place] of uncontroll uncontroll [place] [address] [place] [address] Cervical Cervical Disease Active 2016-06 Unive rs polyp polyp 2-04 ity of 00:00: [address] History of History of Disease Active U lauraers drug abuse drug abuse 9-18 it y of 00:00: [place] 00 Medical Branch History of History of Disease Active U nivers alcohol alcohol 02-23 ity of abuse abuse 00:00: [place] 00 Medical Branch Depression Depression Disease Active U nivers , , 02-23 ity of unspecifie unspecifie 00:[place] 00 Medical depression depression Br anch type type Bipolar Bipolar Disease Active Univers affective affective 02-23 [place] of disorder, disorder, [place] remission remission [facility] status status Branch unspecifie unspecifie d d History of History of Disease Active U nivers tobacco tobacco 02-23 ity of use use 00:00: [place] 00 Medical Branch Allergies, Adverse Reactions, Alerts Allergy Allergy Status Severity Reaction(s) Onset Inactive Treating Comm ents Source Name Type Date Date Clinician [place] Propensi Active Rash Univers ty to 7 ity of adverse 00:00: [place] reaction [facility] s Branch Lisinopr Propensi Active Cough Univer s il ty to 02-23 ity of adverse 00:00: [place] reaction [facility] s Branch Social History Social Habit Start Date Stop Date Quantity Comments Source Cigarette 2019-05-10 2019-05-10 University of pack-years 00:00:00 00:00:00 [facility] Tobacco use and 2019-05-10 2019-05-10 Never used Universit y of exposure 00:00:00 00:00:00 [facility] Alcohol intake 2019-05-10 2019-05-10 Current University of 00:00:00 00:00:00 non-drinker of [facility] alcohol Branch (finding) Cigarettes smoked 2019-05-10 2019-05-10 Univers ity of current (pack per 00:00:00 00:00:00 [place] ) - Reported Branch History of tobacco 2017-02-20 Cigarette Smoker University of use 00:00:00 [facility] Sex Ass[birth year] At [birth year] Universit y of 00:00:00 00:00:00 [facility] Smoking Status Start Date Stop Date Source Current every day smoker 2019-05-10 00:00:00 Uni versity of [facility] Medications Ordered Filled Start Stop Current Ordering Indication Dosage Frequency Signature Comments Components Source Medication Medication Date Date Medication? Clinician (SIG) Name Name metFORMIN 2018-06 Yes 1000mg Take 1,000 Univers 1,000 mg 2-03 mg by ity of tablet 19:19: mouth 2 [place] 20 (two) Medical times Branch daily with meals. levonorgest 2018- Yes [id number] 1{tbl} Take 1 Univers rel-ethinyl 2-03 tablet by ity of estradiol 00:00: mouth [place] (SRONYX) 00 daily. Medical 0.1-20 Branch mg-mcg per tablet hydrOXYzine 2019- Yes 25mg Take 25 mg Univers 25 mg 6-05 by mouth 2 ity of capsule 00:00: (two) [place] 00 times Medical daily. Branch triamcinolo 2019 Yes 1{dose} Apply 1 Univers ne 6-04 Dose to ity of acetonide 00:00[place] 0.1 % cream 00 area(s) 2 Med ical (two) Branch times daily as needed. pioglitazon 2018- Yes 45mg Take 45 mg Univers e 45 mg 6-03 by mouth ity of tablet 00:00: daily. [address] DULoxetine 2018- Yes 30mg Take 30 mg U nivers 30 mg 5-26 by mouth ity of capsule 00:00: daily. [address] LEVEMIR 2019- Yes 80U Inject 80 Unive rs FLEXTOUCH 1-30 Units into ity of U-100 00:00: the skin [place] INSULN 100 00 every Medical unit/mL (3 morning. Branc h mL) injection gabapentin 2018- Yes TAKE 1 Unive rs 300 mg 1-15 CAPSULE BY ity of capsule 00:00: MOUTH [place] 00 THREE Medical TIMES A Branch DAY citalopram 2017- Yes 40mg Take 40 mg U nivers 40 mg 7-15 by mouth ity of tablet 00:00: daily. [address] Immunizations Ordered Filled Immunization Date Status Comments Sour e Immunization Name Name Influenza Virus 2019-05-10 Completed Universit y of Vaccine Quad .5 mL 00:00:00 [place] [facility] IM 6+ MO Branch TDAP 2017-07-20 Completed University of 00:00:00 [facility] Influenza Virus 2017-04-09 Completed Universit y of Vaccine Quad IM 3+ 00:00:00 [facility] Procedures This patient has no known procedures. Encounters Start End Encounter Admission Attending Care Care Encounter Source Date/Time Date/Time Type Type Clinicians Facility Department ID 2020-08-23 2020-08-23 Patient TRA Ortiz [id number] 00:00:00 00:00:00 [facility] Baldomero [facility] [id number] [facility] [id number] PAVILLION [id number] 2020-08-23 2020-08-23 Patient TRA Ortiz [id number] Univers 00:00:00 00:00:00 [facility] [id number] i ty of [facility] [id number] [place] [id number] Me dical 388 Branch Results Test Description Test Time Test Comments Results Result Comments Source SARS-CoV-2 (COVID-19), RT-PCR/TMA 2021-08-29 08:05:41 Test Item Value Reference Range Interpretation Comme nts SARS-CoV-2 INTERPRETATION NEGATIVE SEE NOTE S ARS-CoV-2 RNA NOT (test code = 23721) DETECTED Negative results do not preclude SARS-C oV-2 infection and should notbe us ed as the sole basis for patie nt management decisions. Nega tiveresults must be combined wit h clinical observations, p atient history,and epidemiological information. Optimum specime n types and timingfor peak viral levels during infectio ns caused by SARS-CoV-2 have notbeen determined. Col lection of multiple specim ens or types ofspecimens may be necessary to detect virus. I mproper specimencollect ion and handling, sequence variab ility under primers/probes, or organism present below t he limit of detection may l ead to falsenegative r esults. Positive and negative pr edictive values oftesting are h ighly dependent on prevalence. Fal se negative testresults are more likely when prevalence is h igh. EFFECTIVE 08/19/2021, SPU NEO SPECIMENS CAN NO LONGER BE TE STED WITHTHIS ORDER CODE. FO R SALIVA, ORAL FLUID TESTING A ND SPECIMENREQUIRE MENTS, PLEASE REFER TO ORDER CODE 3509. SOURCE (test code = 84149) NOT SPECIFIED Note: Methodology is [employer] Real-Time RT-PC R. The expected result or ref erence range is NEGATIVE (Not D etected). For more information reg arding COVID-19 testing to incl ude clinicalinforma tion, methodology detail, intende d use, FDA authorization a ndrecommended fact sheets for payton ents or healthcare providers, see [email or web address] Announcement: S ARS-CoV-2 (COVID-19) by N AAT at URL below (note,fact shee ts are provided by method given in report:https:// [email or web address] [email or web address] -communications/ Alternatively, see downloadable PDF fact sheet at:https://www. [employer]/COVID- 19-RT-PCR UNLESS OTHERWISE INDICATED, ALL TESTING PERFORMED [facility], [facility] [address] [place] [address] LABORATORY DIRE CTOR: SARY LILLY M.D. CLIA NUMBER [id number] [place]. [id number] SARS-CoV-2 (COVID-19), RT-PCR/[id number] 14:35:57 Test Item Value Reference Interpretation Comments Range SARS-CoV-2 POSITIVE SEE NOTE A SARS-CoV-2 RNA INTERPRETATION DETECTEDPosit riri results (test code = 39666) are naomie cative of the presence of CHRISTIE S-CoV-2 RNA;clinical co rrelation with patient hi story and other diagnosticinfor mation is necessary to de termine patient infecti on status.Positive results do not rule out bacterial infection or co-infectionwit h other viruses. Positi ve and negative predic tive values oftestin g are highly dependen t on prevalence. SOURCE (test code = NOT SPECIFIED Note: [place] [address]) Almaz Ely Rita l-Time RT-PCR. The exp ected result or refer ence range is NEGATIVE (No t Detected). For more information reg arding COVID-19 testin g to include clinicalinforma tion, methodology det ail, intended use, F DA authorization andrecommended fact sheets for payton ents or healthcare prov iders, see comment.com Announc ement: SARS-CoV-2 (COV ID-19) by NAAT at URL bel ow (note,fact shee ts are provided by met hod given in report:https:// [email or web address]/clinician [email or web address]/client-c ommunications/ Alternatively, see downloadable PD F fact sheet at:https://www. [facility].co m/[email or web address]-CT-[email or web address] CR UNLESS OTHERWIS E INDICATED, ALL TESTING PERFORMED [facility] NICAL PATHOLOGY LABOR COUNTS INCLUDE 234 BEDS AT THE [facility] [address] [place] [address] 4 LABORATORY DIRE CTOR: SARY HARRY M.D. CLIA NUMBER [id number] [facility] [place]. [id number]
[2021-10-26] MEDS ORDERED: FENTANYL CITR 100 MCG/2 ML ONE (13:28)
[2021-10-26] MEDS ORDERED: NA CHLORIDE 0.9% 1,000 ML ONE (13:29)
[2021-10-26] MEDS ORDERED: ONDANSETRON 4 MG/2 ML VIAL ONE (13:29)
[2021-10-26 13:37] LABS: Absolute Lymphocytes (CBC) 2.4 K/uL (0.7-4.9); Hematocrit 43.6 % (36.0-45.0); Lymphocytes % 27.3 % (15.3-44.8); RBC Red Blood Cell Count 4.79 M/uL (3.86-4.86)
[2021-10-26 13:50] LABS: Urine Blood Trace-intact (Negative); Urine Glucose 2+ (Negative); Urine Protein Negative (Negative); Urine pH 5.5 (5.0-7.0)
[2021-10-26 13:51] LABS: Albumin 3.5 g/dL (3.4-5.0); Bilirubin Total 0.8 mg/dL (0.2-1.0); Potassium 3.9 mmol/L (3.5-5.1); Protein, Total 7.4 g/dL (6.4-8.2)
[2021-10-26] MEDS ORDERED: FAMOTIDINE 20 MG/2 ML VIAL IV ONE (14:01)
[2021-10-26 14:02] LABS: Urine Bacteria <20 /HPF (<20); Urine RBC <5 /HPF (NONE SEEN)
--- NOTE | 2021-10-26 14:34 | RAD REPORT ---
EXAM DESCRIPTION: US - Abdomen Exam Limited - 10/26/2021 2:25 pm CLINICAL HISTORY: upper abdomen pain COMPARISON: Abdomen Exam Complete dated 05/02/2019 FINDINGS: The gallbladder demonstrates no gallstones. No pericholecystic fluid or gallbladder wall t hickening. The common bile duct is normal measuring 3 mm. The liver demonstrates no findings of intrahepatic biliary dilatation. IMPRESSION: Unremarkable examination.
[2021-10-26] MEDS ORDERED: INSULIN -REGULAR HUMAN 50 UNIT/0.5 ML ML ONE (14:40)
--- NOTE | 2021-10-26 15:43 | RAD REPORT ---
EXAM DESCRIPTION: CT - Abdomen Pelvis W Contrast - 10/26/2021 3:27 pm CLINICAL HISTORY: Epigastric pain COMPARISON: <Comparisons> TECHNIQUE: Biphasic, helical CT imaging of the abdomen and pelvis was performed following 100 ml non -ionic IV contrast. No oral contrast administered. All CT scans are performed using dose optimization technique as appropriate and may include automated exposure control or mA/KV adjustment according to patient size. FINDINGS: No suspicious findings in the lung bases. Liver shows diffuse fatty infiltration pattern with no focal liver lesions seen. No portal vein abnor mality. Gallbladder and biliary tree within normal limits. No splenic abnormality seen. No pancreatic or peripancreatic abnormality identifiable. Symmetric renal function is seen with no hydronephrosis or suspicious renal mass. No pyelonephritis o r acute parenchymal process. No bladder abnormalities. No adrenal abnormalities. No uterine or left o varian acute finding. Right deviation uterus present. There is a 2.7 centimeter right ovarian cyst. No gastric wall thickening or edema. No duodenal abnormality. The small bowel is unremarkable. Append ix is normal. There is a large stool volume filling but not dilating the entirety of the colon. No fo carl colon mass or area of colon wall thickening seen. There is fecalized bowel content in the distal small bowel. No free air, free fluid or inflammatory stranding. No hernia, mass or bulky lymphadenopathy. Benig n fatty mass is seen in the left flank. No suspicious bony findings. IMPRESSION: Constipation pattern with a large amount of stool filling but not dilating the entirety of the colon. No acute colon wall abnormality or focal mass seen. No pancreatic, gallbladder, biliary tree or bowel abnormality to explain epigastric pain pattern. Benign-appearing 2.7 centimeter right ovarian cyst.
[2021-10-26] MEDS ORDERED: CEFTRIAXONE 1000 MG/VIAL ONE (16:31)
--- NOTE | 2021-10-26 16:42 | EDPHYS ---
Physician Documentation [facility] Name: Jodee Rae Age: 41 yrs Sex: Female : 1980 Arrival Date: 10/26/2021 Time: 11:52 Bed 9 Private MD: ED Physician Donna Villa HPI: 10/26 13:00 This 41 yrs old Female presents to ER via Wheelchair with complaints of cp Abdominal Pain, Nausea. 13:00 The patient presents with abdominal pain in the upper abdomen. Onset: The cp symptoms/episode began/occurred this morning. Associated signs and symptoms: Pertinent positives: anorexia, nausea, Pertinent negatives: constipation, diarrhea, fever, vomiting. The symptoms are described as achy. Severity of pain: in the emergency department the pain is unchanged despite home interventions. 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 iw Historical: - Allergies: 12:14 Lisinopril; cough; iw 12:14 [place] Carbonate; iw 12:14 PENICILLINS (Upset stomach); iw - Home Meds: 12:14 Seroquel 200 mg Oral tab 1 tab nightly [Active]; Actos Oral [Active]; atorvastatin Oral iw [Active]; citalopram oral once daily [Active]; gabapentin 300 mg Oral cap 1 cap 3 times per day [Active]; Lantus 100 unit/mL Sub-Q soln [Active]; hydroxyzine HCl 25 mg Oral tab 1 tab 2 times daily [Active]; loratadine 10 mg Oral tab [Active]; metformin 1,000 mg Oral tab 1 tab 2 times per day [Active]; Novolog 100 unit/mL Sub-Q soln [Active]; - PMHx: 12:14 Asthma; Bipolar disorder; Depression; Diabetes - IDDM; iw - PSHx: 12:14 section; hand; iw 13:21 tubal ligation; iw - Social history:: Smoking status: unknown. ROS: 13:05 Constitutional: Negative for body aches, chills, fever, poor PO intake. cp 13:05 Eyes: Negative for injury, pain, redness, and discharge. cp 13:05 ENT: Negative for ear pain, sore throat, difficulty swallowing, difficulty handling secretions. 13:05 Cardiovascular: Negative for chest pain, edema, palpitations. 13:05 Respiratory: Negative for cough, shortness of breath, wheezing. 13:05 Abdomen/GI: Positive for abdominal pain, nausea, anorexia, Negative for vomiting, diarrhea, constipation. 13:05 Back: Negative for radiated pain. 13:05 : Positive for urinary symptoms. 13:05 Neuro: Negative for altered mental status, headache, weakness. 13:05 All other systems are negative. Exam: 13:10 Constitutional: The patient appears in no acute distress, alert, awake, cp non-diaphoretic, non-toxic, well developed, well nourished. 13:10 Head/Face: Normocephalic, atraumatic. cp 13:10 Eyes: Periorbital structures: appear normal, Conjunctiva: normal, no exudate, no injection, Sclera: no appreciated abnormality, Lids and lashes: appear normal, bilaterally. 13:10 ENT: External ear(s): are unremarkable, Nose: is normal, Mouth: Lips: moist, Oral mucosa: pink and intact, moist, Posterior pharynx: Airway: no evidence of obstruction, patent. 13:10 Chest/axilla: Inspection: normal, Palpation: is normal, no crepitus, no tenderness. 13:10 Cardiovascular: Rate: normal, Rhythm: regular. 13:10 Respiratory: the patient does not display signs of respiratory distress, Respirations: normal, no use of accessory muscles, no retractions, labored breathing, is not present, Breath sounds: are clear throughout, no decreased breath sounds, no stridor, no wheezing. 13:10 Abdomen/GI: Inspection: abdomen appears normal, Bowel sounds: active, all quadrants, Palpation: soft, in all quadrants, moderate abdominal tenderness, in the right upper quadrant and left upper quadrant, rebound tenderness, is not appreciated, involuntary guarding, is not appreciated. 13:10 Back: CVA tenderness, is absent. 13:10 Skin: cellulitis, is not appreciated, no rash present. 13:10 Neuro: Orientation: to person, place \T\ time. Mentation: is normal, Motor: moves all fours, strength is normal. Vital Signs: 12:13 BP 108 / 95; Pulse 105; Resp 16; Temp 98.4; Pulse Ox 100% on R/A; iw 15:02 BP 127 / 84; Pulse 89; Resp 16; Pulse Ox 100% on R/A; iw MDM: 13:00 Differential diagnosis: appendicitis, bowel obstruction, cholecystitis, Cholelithiasis, cp pancreatitis, Pyelonephritis, Ureterolithiasis, urinary tract infection. 13:18 Patient medically screened. 16:40 Data reviewed: vital signs, nurses notes, lab test result(s), radiologic studies, CT cp scan, ultrasound. 16:40 Counseling: I had a detailed discussion with the patient and/or guardian regarding: the cp historical points, exam findings, and any diagnostic results supporting the discharge/admit diagnosis, lab results, radiology results, to return to the emergency department if symptoms worsen or persist or if there are any questions or concerns that arise at home. 16:40 Response to treatment: the patient's symptoms have markedly improved after treatment. 16:40 Special discussion: Based on the patient's Hx, exam, and Dx evaluation, there is no cp indication for emergent surgery or inpatient Tx. It is understood by the patient/guardian that if the Sx's persist or worsen they need to return immediately for re-evaluation. 10/26 12:46 Order name: CBC with Diff; Complete Time: 14:04 10/26 14:04 Interpretation: Normal except: HGB 15.1. 10/26 12:46 Order name: CMP; Complete Time: 14:04 10/26 14:04 Interpretation: Normal except: NA 131; CL 97; GLUC 348; ALK 133; GLOB 3.9. 10/26 12:46 Order name: Lipase; Complete Time: 14:04 10/26 12:46 Order name: Urine Microscopic Only; Complete Time: 14:04 10/26 13:50 Order name: Urine --Ancillary (enter results); Complete Time: 14:43 em1 10/26 13:51 Order name: Urine Dipstick-Ancillary; Complete Time: 14:04 EDMS 10/26 12:46 Order name: Abdomen Limited US: epigastric/RUQ; Complete Time: 14:43 10/26 14:05 Order name: Urine Culture EDTX 10/26 14:43 Order name: CT Abd/Pelvis - IV Contrast Only; Complete Time: 15:45 10/26 15:47 Interpretation: Report reviewed. 10/26 16:40 Order name: Glucose, Ancillary Testing [facility] 10/26 12:46 Order name: IV Saline Lock; Complete Time: 13:36 cp 10/26 12:46 Order name: Labs collected and sent; Complete Time: 13:36 cp 10/26 12:46 Order name: Urine Dipstick-Ancillary (obtain specimen); Complete Time: 13:45 cp 10/26 12:46 Order name: Urine Test (obtain specimen); Complete Time: 13:49 cp 10/26 12:46 Order name: NPO; Complete Time: 13:36 cp 10/26 16:22 Order name: PO challenge; Complete Time: 16:25 cp Administered Medications: 13:29 Drug: NS 0.9% 1000 ml Route: IV; Rate: 1 bolus; Site: right antecubital; iw 14:30 Follow up: IV Status: Completed infusion; IV Intake: 1000ml ss 13:34 Drug: Zofran (Ondansetron) 4 mg Route: IVP; Site: right antecubital; iw 17:00 Follow up: Response: No adverse reaction ss 13:34 Drug: fentaNYL (PF) 25 mcg Route: IVP; Site: right antecubital; iw 16:59 Follow up: Response: No adverse reaction; Pain is decreased ss 14:03 Drug: Pepcid (famotidine) 20 mg Route: IVP; Site: right antecubital; ss 16:59 Follow up: Response: No adverse reaction ss 14:45 Drug: Insulin Regular Human 10 units {Co-Signature: ss (Daina Jameson RN).} Route: IVP; iw Site: right antecubital; 16:59 Follow up: Response: No adverse reaction ss 16:31 Drug: Rocephin - (cefTRIAXone) 1 grams Route: IVPB; Infused Over: 30 mins; Site: right iw antecubital; 16:59 Follow up: IV Status: Completed infusion; IV Intake: 50ml ss Disposition Summary: 10/26/21 16:41 Discharge Ordered Location: Home cp Problem: new cp Symptoms: have improved cp Condition: Stable cp Diagnosis - Nausea with vomiting, unspecified cp - Abdominal pain, unspecified cp - UTI/ Urinary tract infection, site not specified cp - Diabetes mellitus due to underlying condition with hyperglycemia cp Followup: cp - With: Private Physician - When: 2 - 3 days - Reason: Recheck today's complaints Discharge Instructions: - Discharge Summary Sheet cp - Abdominal Pain, Adult cp - Nausea and Vomiting, Adult cp - Type 2 Diabetes Mellitus, Self Care, Adult cp Forms: - Medication Reconciliation Form cp - Thank You Letter cp - Antibiotic Education cp - Prescription Opioid Use cp Prescriptions: - Zofran 4 mg Oral Tablet - take 1 tablet by ORAL route every 12 hours As needed; 20 tablet; Refills: 0, cp Product Selection Permitted - Bactrim DS 800-160 mg Oral Tablet - take 1 tablet by ORAL route every 12 hours for 5 days; 10 tablet; Refills: 0, cp Product Selection Permitted - dicyclomine 20 mg Oral Tablet - take 1 tablet by ORAL route 4 times per day; 30 tablet; Refills: 0, Product cp Selection Permitted Signatures: Dispatcher [employer] EDTracey Bingham RN RN iw Daina Jameson RN RN ss Tyrone Joseph PA PA cp Shelby Smirch RN ss Corrections: (The following items were deleted from the chart) 12:15 12:14 PMHx: Hypertension; [facility]
--- NOTE | 2021-10-26 16:42 | ER ---
Nurse's Notes [facility] Name: Jodee Rae Age: 41 yrs Sex: Female : 1980 Arrival Date: 10/26/2021 Time: 11:52 Bed 9 Private MD: Diagnosis: Nausea with vomiting, unspecified;Abdominal pain, unspecified;UTI/ Urinary tract infection, site not specified;Diabetes mellitus due to underlying condition with hyperglycemia Presentation: 10/26 12:13 Chief complaint: Patient states: upper abd pain, nausea, started this morning. iw Coronavirus screen: At this time, the client does not indicate any symptoms associated with coronavirus-19. Ebola Screen: Patient negative for fever greater than or equal to 101.5 degrees Fahrenheit, and additional compatible Ebola Virus Disease symptoms Patient denies exposure to infectious person. Patient denies travel to an Ebola-affected area in the 21 days before illness onset. No symptoms or risks identified at this time. Initial Sepsis Screen: Does the patient meet any 2 criteria? No. Patient's initial sepsis screen is negative. Does the patient have a suspected source of infection? No. Patient's initial sepsis screen is negative. Risk Assessment: Do you want to hurt yourself or someone else? Patient reports no desire to harm self or others. Onset of symptoms was October 26, 2021. 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 iw Historical: - Allergies: 12:14 Lisinopril; cough; iw 12:14 [place] Carbonate; iw 12:14 PENICILLINS (Upset stomach); iw - Home Meds: 12:14 Seroquel 200 mg Oral tab 1 tab nightly [Active]; Actos Oral [Active]; atorvastatin Oral iw [Active]; citalopram oral once daily [Active]; gabapentin 300 mg Oral cap 1 cap 3 times per day [Active]; Lantus 100 unit/mL Sub-Q soln [Active]; hydroxyzine HCl 25 mg Oral tab 1 tab 2 times daily [Active]; loratadine 10 mg Oral tab [Active]; metformin 1,000 mg Oral tab 1 tab 2 times per day [Active]; Novolog 100 unit/mL Sub-Q soln [Active]; - PMHx: 12:14 Asthma; Bipolar disorder; Depression; Diabetes - IDDM; iw - PSHx: 12:14 section; hand; iw 13:21 tubal ligation; iw - Social history:: Smoking status: unknown. Screenin:21 Abuse screen: Denies threats or abuse. Denies injuries from another. Nutritional iw screening: No deficits noted. Tuberculosis screening: No symptoms or risk factors identified. Fall Risk IV access (20 points). Assessment: 14:45 Reassessment: pt states pain has resolved and now feels hungry. iw 16:05 Reassessment: Patient appears in no apparent distress at this time. Pt is resting at ss this time, eyes closed. Respirations even and unlabored. 16:32 Reassessment: Patient appears in no apparent distress at this time. Patient and/or iw family updated on plan of care and expected duration. Pain level reassessed. Patient is alert, oriented x 3, equal unlabored respirations, skin warm/dry/pink. Patient states feeling better. Patient states symptoms have improved. Vital Signs: 12:13 BP 108 / 95; Pulse 105; Resp 16; Temp 98.4; Pulse Ox 100% on R/A; iw 15:02 BP 127 / 84; Pulse 89; Resp 16; Pulse Ox 100% on R/A; iw ED Course: 11:52 Patient arrived in ED. ds1 12:14 Triage completed. iw 12:15 Arm band placed on. iw 12:25 Tyrone Joseph PA is PHCP. cp 12:25 Donna Villa MD is Attending Physician. cp 13:21 Tracey Rausch, FRANKIE is Primary Nurse. iw 13:21 Inserted saline lock: 22 gauge in right antecubital area, using aseptic technique. iw 13:49 Urine Microscopic Only Sent. zm 14:27 Abdomen Limited US: epigastric/RUQ In Process Unspecified. EDMS 15:28 CT Abd/Pelvis - IV Contrast Only In Process Unspecified. EDMS 16:54 Patient has correct armband on for positive identification. ss 16:54 No provider procedures requiring assistance completed. IV discontinued, intact, ss bleeding controlled, No redness/swelling at site. Pressure dressing applied. Administered Medications: 13:29 Drug: NS 0.9% 1000 ml Route: IV; Rate: 1 bolus; Site: right antecubital; iw 14:30 Follow up: IV Status: Completed infusion; IV Intake: 1000ml ss 13:34 Drug: Zofran (Ondansetron) 4 mg Route: IVP; Site: right antecubital; iw 17:00 Follow up: Response: No adverse reaction ss 13:34 Drug: fentaNYL (PF) 25 mcg Route: IVP; Site: right antecubital; iw 16:59 Follow up: Response: No adverse reaction; Pain is decreased ss 14:03 Drug: Pepcid (famotidine) 20 mg Route: IVP; Site: right antecubital; ss 16:59 Follow up: Response: No adverse reaction ss 14:45 Drug: Insulin Regular Human 10 units {Co-Signature: ss (Daina Jameson RN).} Route: IVP; iw Site: right antecubital; 16:59 Follow up: Response: No adverse reaction ss 16:31 Drug: Rocephin - (cefTRIAXone) 1 grams Route: IVPB; Infused Over: 30 mins; Site: right iw antecubital; 16:59 Follow up: IV Status: Completed infusion; IV Intake: 50ml ss Medication: 16:54 VIS not applicable for this client. ss Intake: 14:30 IV: 1000ml; Total: 1000ml. ss 16:59 IV: 50ml; Total: 1050ml. ss Outcome: 16:41 Discharge ordered by MD. cp 16:54 Discharged to home ambulatory. ss 16:54 Condition: improved 16:54 Discharge instructions given to patient, family, Instructed on discharge instructions, follow up and referral plans. medication usage, Demonstrated understanding of instructions, follow-up care, medications, Prescriptions given X 3. 16:58 Patient left the ED. ss Signatures: Dispatcher [facility] [place] Mary Shea ds1 Tracey Rausch RN RN Daina Jameson RN RN ss Tyrone Joseph PA PA cp Martinez, Zaina zm Shelby Smirch RN ss Corrections: (The following items were deleted from the chart) 12:15 12:14 PMHx: Hypertension; [facility]
[2021-10-26 17:25] VITALS: TEMP 98.4; O2SAT 100
[2021-10-26 17:27] VITALS: BP 127/84
== END 2021-10-26 16:58 | disposition home or self-care (01) ==
LOC: ER 11:51
DX: N39.0 Urinary tract infection, site not specified (principal); E11.65 Type 2 diabetes mellitus with hyperglycemia; Z79.4 Long term (current) use of insulin; R10.10 Upper abdominal pain, unspecified; F31.9 Bipolar disorder, unspecified; Z88.0 Allergy status to penicillin; Z88.8 Allergy status to other drugs, medicaments and biological substances
CPT/HCPCS: 96365; 96361; 87088; 85025; 87086; 36415; 81025; 82947; 87077 ×2; 87186 ×2; 83690; 80053; 74177; 76705; 96375; 99284; Q9967; J1815; J3010; J7030; J2405; J3490; 81003; 81015

== ENCOUNTER 2022-01-24 13:19 | Emergency (ER) | payer OTHER ==
--- OUTSIDE RECORDS SUMMARY | 2022-01-24 13:22 | XMS REPORT | Continuity of Care Document ---
:1980 Author Organization [facility] t Address [address] [place] [address] Care Team Providers Name Role Phone Baldomero [...] [place] and advice and advice 00 De dical for [facility] contracept contracept riri riri management management History of History of Disease Active 2018-06 U dinesh tubal tubal 2-03 ity of ligation ligation 00:00: [address] History of History of Disease Active 2018-06 U dinesh hypertensi hypertensi 2-03 it y of on on 00:00: [address] Obesity Obesity Disease Active Univers (BMI (BMI 8-16 ity of 30-39.9) 30-39.9) 00:00: [address] Diabetes Diabetes Disease Active Unive rs type 2, type 2, 3-26 ity of uncontroll uncontroll [place] [address] [place] [address] Cervical Cervical Disease Active 2016-06 Unive rs polyp polyp 2-04 ity of 00:00: [address] History of History of Disease Active U lauraers drug abuse drug abuse 9-18 it y of 00:00: [place] 00 Medical Branch History of History of Disease Active U nivers alcohol alcohol 02-23 ity of abuse abuse 00:00: [place] 00 Medical Branch Depression Depression Disease Active U nivers , , 02-23 ity of unspecifie unspecifie 00:[place] 00 Medical depression depression Br anch type type Bipolar Bipolar Disease Active Univers affective affective 02-23 [place] of disorder, disorder, [place] remission [facility] status status Branch unspecifie unspecifie d d History of History of Disease Active U nivers tobacco tobacco 02-23 ity of use use 00:00: [place] 00 Medical Branch Allergies, Adverse Reactions, Alerts Allergy Allergy Status Severity Reaction(s) Onset Inactive Treating Comm ents Source Name Type Date Date Clinician [place] Propensi Active Rash Univers ty to 7 ity of adverse 00:00: [place] reaction [facility] Lisinopr Propensi Active Cough Univer s il ty to 02-23 ity of adverse 00:00: [place] reaction [facility] Social History Social Habit Start Date Stop Date Quantity Comments Source Cigarette 2019-05-10 2019-05-10 University of pack-years 00:00:00 00:00:00 [facility] [place] Tobacco use and 2019-05-10 2019-05-10 Never used Universit y of exposure 00:00:00 00:00:00 [facility] [place] Alcohol intake 2019-05-10 2019-05-10 Current University of 00:00:00 00:00:00 non-drinker of [facility] alcohol Branch (finding) Cigarettes smoked 2019-05-10 2019-05-10 Univers ity of current (pack per 00:00:00 00:00:00 [place] ) - Reported Branch History of tobacco 2017-02-20 Cigarette Smoker University of use 00:00:00 [facility] [place] Sex Assigned At [birth year] Universit y of 00:00:00 00:00:00 [facility] [place] Smoking Status Start Date Stop Date Source Current every day smoker 2019-05-10 00:00:00 Uni versity of [facility] [place] Medications Ordered Filled Start Stop Current Ordering Indication Dosage Frequency Signature Comments Components Source Medication Medication Date Date Medication? Clinician (SIG) Name Name metFORMIN 2018-06 Yes 1000mg Take 1,000 Univers 1,000 mg 2-03 mg by ity of tablet 19:19: mouth 2 [place] 20 (two) Medical times Branch daily with meals. levonorgest 2018- Yes [id number] 1{tbl} Take 1 Univers rel-ethinyl 2-03 tablet by ity of estradiol 00:00: mouth [place] (SRONYX) 00 daily. Medical 0.1-20 Branch mg-mcg [...] mouth ity of tablet 00:00: daily. [address] DULoxetine 2018- Yes 30mg Take 30 mg U nivers 30 mg 5-26 by mouth ity of capsule 00:00: daily. [address] LEVEMIR 2019- Yes 80U Inject 80 Unive rs FLEXTOUCH 1-30 Units into ity of U-100 00:00: the skin [place] INSULN 100 00 every Medical unit/mL (3 morning. Branc h mL) injection gabapentin 2018- Yes TAKE 1 Unive rs 300 mg 1-15 CAPSULE BY ity of capsule 00:00: MOUTH [place] 00 THREE Medical TIMES A Branch DAY citalopram 2017- Yes 40mg Take 40 mg U nivers 40 mg 7-15 by mouth ity of tablet 00:00: daily. [address] Immunizations Ordered Filled Immunization Date Status Comments Sour e Immunization Name Name Influenza Virus 2019-05-10 Completed Universit y of Vaccine Quad .5 mL 00:00:00 [facility] IM 6+ MO Branch TDAP 2017-07-20 Completed University of 00:00:00 [facility] [place] Influenza Virus 2017-04-09 Completed Universit y of Vaccine Quad IM 3+ 00:00:00 [facility] Procedures This patient has no known procedures. Encounters Start End Encounter Admission Attending Care Care Encounter Source Date/Time Date/Time Type Type Clinicians Facility Department ID 2020-08-23 2020-08-23 Patient TRA Ortiz [id number] 00:00:00 00:00:00 [facility] Baldomero [facility] [id number] [facility] [id number] [facility]ION [id number] 2020-08-23 2020-08-23 Patient TRA Ortiz [id number] Univers 00:00:00 00:00:00 [facility] [id number] i ty of [facility] [id number] [place] [id number] Me dical 388 Branch Results Test Description Test Time Test Comments Results Result Comments Source SARS-CoV-2 (COVID-19), RT-PCR/TMA 2021-08-29 08:05:41 Test Item Value Reference Range Interpretation Comme nts SARS-CoV-2 INTERPRETATION NEGATIVE SEE NOTE S ARS-CoV-2 RNA NOT (test code = 94467) DETECTED Negative results do not preclude SARS-C [...] LONGER BE TE STED WITHTHIS ORDER CODE. FOR SALIVA, ORAL FLUID TESTING A ND SPECIMENREQUIRE MENTS, PLEASE REFER TO ORDER CODE 3509. SOURCE (test code = 01688) NOT SPECIFIED Note: Methodology is Almaz Ely Real-Time RT-PC R. The expected result or refer ence range is NEGATIVE (Not D etected). For more information reg arding COVID-19 testing to incl ude clinicalinforma tion, methodology detail, intende d use, FDA authorization a ndrecommended fact sheets for payton ents or healthcare providers, see Membersuite Announcement: S ARS-CoV-2 (COVID-19) by N AAT at URL below (note,fact shee ts are provided by method given in report:https:// www.[employer]/cl inicians/client -communications/ Alternatively, see downloadable PDF fact sheet at:https://www. [employer]/COVID- 19-RT-PCR UNLES S OTHERWISE INDICATED, ALL TESTING PERFORMED [facility], [facility]. [address] [place] [address] 4 STUDENT ACTIVITIES DIRECTOR: SARY LILLY M.D. CLIA NUMBER [id number] CAP ACCREDITATION N O. [id number] SARS-CoV-2 (COVID-19), RT-PCR/[id number] 14:35:57 Test Item Value Reference Interpretation Comments Range SARS-CoV-2 POSITIVE SEE NOTE A SARS-CoV-2 RNA INTERPRETATION DETECTEDPosit riri results (test code = 79932) are naomie cative of the presence of [...] code = NOT SPECIFIED Note: [place] [address]) Almaz Ely Rita l-Time RT-PCR. The exp ected result or refer ence range is NEGATIVE (No t Detected). For more information reg arding COVID-19 testin g to include clinicalinforma tion, methodology det ail, intended use, F DA authorization andrecommended fact sheets for payton ents or healthcare prov iders, see Membersuite Announc ement: SARS-CoV-2 (COV ID-19) by NAAT at URL bel ow (note,fact shee ts are provided by met hod given in report:https:// www.[employer] s.com/clinician s/client-c ommunications/ Alternatively, see downloadable PD F fact sheet at:https://www. cpllabs.co m/RILGA-76-TI-P CR UNLESS OTHERWISE INDIC ATED, ALL TESTING PERFORM [facility], [facility]. [address] [place] [id number] LABORATORY DIRE CTOR: Alesha ROSAS CLIA NUMBER [id number] CAP ACCREDITATION N O. [id number]
--- NOTE | 2022-01-24 14:03 | EDPHYS ---
Physician Documentation [facility] Name: Jodee Rae Age: 41 yrs Sex: Female : 1980 Arrival Date: 01/24/2022 Time: 13:20 Bed Waiting Private MD: BUSHRA Physician Tyrone Sotomayor HPI: 01/24 14:10 This 41 yrs old Female presents to ER via Ambulatory with complaints of High kb Blood Sugar. 14:10 The patient or guardian reports hyperglycemia, that was potentially precipitated by not kb taking medications as prescribed. Onset: The symptoms/episode began/occurred today. Associated signs and symptoms: Pertinent positives: blurred vision. Current symptoms: In the emergency department the patient's symptoms are unchanged from the initial presentation. The patient has experienced similar episodes in the past, chronically. The patient has not recently seen a physician. Pt states she just got out of senior living and has not been taking her medication every day as prescribed while there. States her sugar normally runs in the 200s, but today her meter wouldn't give a reading. Denies abd pain, n/v/d. States she has blurry vision which has been going on for a long time and she has seen an assistant manager quality management for it. Also reports depression and anxiety because of being in senior living and away from 4 year old son. . 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 bm7 Historical: - Allergies: 13:53 Lisinopril; cough; bm7 13:53 [place] Carbonate; bm7 13:53 PENICILLINS (Upset stomach); bm7 - Home Meds: 13:53 Novolog 100 unit/mL Sub-Q soln [Active]; Seroquel 200 mg Oral tab 1 tab nightly bm7 [Active]; metformin 1,000 mg Oral tab 1 tab 2 times per day [Active]; Lantus 100 unit/mL Sub-Q soln [Active]; gabapentin 300 mg Oral cap 1 cap 3 times per day [Active]; atorvastatin Oral [Active]; Actos Oral [Active]; citalopram oral once daily [Active]; hydroxyzine HCl 25 mg Oral tab 1 tab 2 times daily [Active]; - PMHx: 13:53 Asthma; Bipolar disorder; Depression; Diabetes - IDDM; bm7 - PSHx: 13:53 section; hand; tubal ligation; bm7 - Immunization history:: Adult Immunizations unknown. - Social history:: Smoking status: Patient/guardian denies using tobacco products. ROS: 14:09 Constitutional: Negative for fever, chills, and weight loss. kb 14:09 Psych: Positive for anxiety, depression, Negative for depression, drug dependence, alcohol dependence, auditory hallucinations, visual hallucinations, homicidal ideation, insomnia, suicide gesture, suicidal ideation. 14:09 All other systems are negative. 14:10 Eyes: Positive for visual disturbance. kb Exam: 14:09 Constitutional: This is a well developed, well nourished patient who is awake, alert, kb and in no acute distress. Head/Face: Normocephalic, atraumatic. ENT: Moist Mucous membranes Cardiovascular: Regular rate and rhythm with a normal S1 and S2. No gallops, murmurs, or rubs. No pulse deficits. Respiratory: Respirations even and unlabored. No increased work of breathing. Talking in full sentences Abdomen/GI: Soft, non-tender. No distention Skin: Warm, dry with normal turgor. Normal color. MS/ Extremity: Pulses equal, no cyanosis. Neurovascular intact. Full, normal range of motion. Neuro: Awake and alert, GCS 15, oriented to person, place, time, and situation. Moves all extremities. Normal gait. 14:09 Constitutional: The patient appears anxious. 14:09 Psych: Behavior/mood is anxious, Affect is calm, Oriented to person, place, time, Patient has no thoughts/intents to harm self or others. Vital Signs: 13:51 BP 131 / 88; Pulse 88; Resp 16; Temp 97.7(TE); Pulse Ox 100% on R/A; Weight 63.5 kg bm7 (R); Height 5 ft. 1 in. (154.94 cm); Pain 0/10; 13:51 Body Mass Index 26.45 (63.50 kg, 154.94 cm) bm7 MDM: 13:56 Patient medically screened. kb 14:03 Data reviewed: vital signs, nurses notes. Data interpreted: Pulse oximetry: on room air kb is 100 %. Interpretation: normal. Counseling: I had a detailed discussion with the patient and/or guardian regarding: the historical points, exam findings, and any diagnostic results supporting the discharge/admit diagnosis, the need for outpatient follow up, a family practitioner, to return to the emergency department if symptoms worsen or persist or if there are any questions or concerns that arise at home. ED course: Pt states "I don't want to stay if I am not going into the back. My son is in the car with my mom and he hasn't seen me in 10 days because I have been in senior living. I don't want her to take him home and him wake up without me there." Pt informed that the plan is to draw labs in triage and start IV fluids now so that her overall wait time will be decreased. Pt elected to leave prior to diagnostics or treatment. Pt informed that she can return at any time for any reason. Verbal understanding received. . 01/24 13:57 Order name: IV Start kb 01/24 13:57 Order name: Urine Dipstick-Ancillary (obtain specimen) kb Administered Medications: No medications were administered Point of Care Testing: Blood Glucose: 13:53 Blood Glucose: High (>450 mg/dL); bm7 Ranges: Critical Glucose Levels:Adult <50 mg/dl or >400 mg/dl <40 mg/dl or >180 mg/dl Disposition Summary: 01/24/22 14:02 Discharge Ordered Location: Home kb Condition: Stable kb Diagnosis - Hyperglycemia, unspecified kb Followup: kb - With: Emergency Department - When: As needed - Reason: Worsening of condition Followup: kb - With: Private Physician - When: 2 - 3 days - Reason: Recheck today's complaints, Continuance of care, Re-evaluation by your physician Discharge Instructions: - Discharge Summary Sheet kb - Hyperglycemia, [id number] kb - Type 2 Diabetes Mellitus, Diagnosis, Adult, [id number] kb Forms: - Medication Reconciliation Form kb - Thank You Letter kb - Antibiotic Education kb - Prescription Opioid Use kb Signatures: Dispatcher [employer] EDMS Haleigh Servin, JOVON-C JOVON-Mena Love RN RN bm7 Corrections: (The following items were deleted from the chart) 14:10 14:09 Psych: Positive for anxiety, Negative for depression, drug dependence, alcohol kb dependence, auditory hallucinations, visual hallucinations, homicidal ideation, insomnia, suicide gesture, suicidal ideation, kb
--- NOTE | 2022-01-24 14:03 | ER ---
Nurse's Notes [facility] Name: Jodee Rae Age: 41 yrs Sex: Female : 1980 Arrival Date: 01/24/2022 Time: 13:20 Bed Waiting Private MD: Diagnosis: Hyperglycemia, unspecified Presentation: 01/24 13:51 Chief complaint: Patient states: I am so depressed and I just got out of senior living and my bm7 blood sugar has been running high since this morning. My meter just reads high. I havent slept much and my vision has been blurry. Coronavirus screen: At this time, the client does not indicate any symptoms associated with coronavirus-19. Ebola Screen: No symptoms or risks identified at this time. Initial Sepsis Screen: Does the patient meet any 2 criteria? No. Patient's initial sepsis screen is negative. Does the patient have a suspected source of infection? No. Patient's initial sepsis screen is negative. Risk Assessment: Do you want to hurt yourself or someone else? Patient reports no desire to harm self or others. Onset of symptoms was January 24, 2022. Care prior to arrival: None. 13:51 Method Of Arrival: Ambulatory 7 13:51 Acuity: GERTRUDIS 3 bm7 Triage Assessment: 13:53 General: Appears in no apparent distress. well groomed, well developed, Behavior is bm7 crying. Pain: Denies pain. EENT: No deficits noted. No signs and/or symptoms were reported regarding the EENT system. Neuro: Reports blurred vision. Cardiovascular: Denies chest pain, shortness of breath. Respiratory: No deficits noted. GI: No deficits noted. No signs and/or symptoms were reported involving the gastrointestinal system. : No deficits noted. No signs and/or symptoms were reported regarding the genitourinary system. Derm: No deficits noted. No signs and/or symptoms reported regarding the dermatologic system. Musculoskeletal: No deficits noted. No signs and/or symptoms reported regarding the musculoskeletal system. 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 bm7 Historical: - Allergies: 13:53 Lisinopril; cough; bm7 13:53 [place] Carbonate; bm7 13:53 PENICILLINS (Upset stomach); bm7 - Home Meds: 13:53 Novolog 100 unit/mL Sub-Q soln [Active]; Seroquel 200 mg Oral tab 1 tab nightly bm7 [Active]; metformin 1,000 mg Oral tab 1 tab 2 times per day [Active]; Lantus 100 unit/mL Sub-Q soln [Active]; gabapentin 300 mg Oral cap 1 cap 3 times per day [Active]; atorvastatin Oral [Active]; Actos Oral [Active]; citalopram oral once daily [Active]; hydroxyzine HCl 25 mg Oral tab 1 tab 2 times daily [Active]; - PMHx: 13:53 Asthma; Bipolar disorder; Depression; Diabetes - IDDM; bm7 - PSHx: 13:53 section; hand; tubal ligation; bm7 - Immunization history:: Adult Immunizations unknown. - Social history:: Smoking status: Patient/guardian denies using tobacco products. Screenin:11 Abuse screen: Denies threats or abuse. Nutritional screening: No deficits noted. [facility] Tuberculosis screening: No symptoms or risk factors identified. Fall Risk None identified. Assessment: 14:01 Reassessment: patient states she does not want to wait hours and says she is going to [address] in [place] where she wont have to wait MACHINE I COREMAKER notified. Vital Signs: 13:51 BP 131 / 88; Pulse 88; Resp 16; Temp 97.7(TE); Pulse Ox 100% on R/A; Weight 63.5 kg [facility] (R); Height 5 ft. 1 in. (154.94 cm); Pain 0/10; 13:51 Body Mass Index 26.45 (63.50 kg, 154.94 cm) [facility] ED Course: 13:20 Patient arrived in ED. as 13:38 Haleigh Servin FNP-C is PHCP. kb 13:38 Tyrone Sotomayor MD is Attending Physician. kb 13:53 Triage completed. bm7 13:53 Arm band placed on right wrist. bm7 14:11 Allergy band placed. bm7 14:11 No provider procedures requiring assistance completed. Patient did not have IV access 7 during this emergency room visit. Administered Medications: No medications were administered Medication: 14:11 VIS not applicable for this client. 7 Point of Care Testing: Blood Glucose: 13:53 Blood Glucose: High (>450 mg/dL); [facility] Ranges: Outcome: 14:02 Discharge ordered by MD. andujar 14:11 Discharged to home ambulatory. bm7 14:11 Condition: good 14:11 Discharge instructions given to patient, Instructed on discharge instructions, Demonstrated understanding of instructions. 14:11 Patient left the ED. bm7 Signatures: Haleigh Servin, ROUNDER HAND-C ROUNDER HAND-Zaira Cardoza Brittany, RN RN bm7
[2022-01-24 14:32] VITALS: BP 131/88; TEMP 97.7; O2SAT 100
== END 2022-01-24 14:11 | disposition home or self-care (01) ==
LOC: ER 13:19
DX: E11.65 Type 2 diabetes mellitus with hyperglycemia (principal); Z79.4 Long term (current) use of insulin; F31.9 Bipolar disorder, unspecified; Z88.0 Allergy status to penicillin; Z88.8 Allergy status to other drugs, medicaments and biological substances
CPT/HCPCS: 82947; 99282

== ENCOUNTER 2022-02-03 19:08 | Emergency (ER) | payer OTHER ==
--- OUTSIDE RECORDS SUMMARY | 2022-02-03 19:16 | XMS REPORT | Continuity of Care Document ---
:1980 Author Organization [facility] t Address [address] [place] [address] Care Team Providers Name Role Phone Candice Anguiano Primary Care Physician [phone] Baldomero Ortiz DO Attending Clinician Payers Payer Name Policy Type Policy Number Effective Date Expiration Date S ource Problems Condition Condition Condition Status Onset Resolution Last Treating Co mments Source Name Details Category Date Date Treatment Clinician Date Other Other Disease Active 2018-06 Univers general general 2-03 [place] counseling [place] advice [place] dical for [facility] contracept contracept riri riri management management History of History of Disease Active 2018-06 U dinesh tubal tubal 2-03 ity of ligation ligation 00:00: [address] Branch History of History of Disease Active 2018-06 U lauraers hypertensi hypertensi 2-03 it y of on on 00:00: [address] Branch Obesity Obesity Disease Active Univers (BMI (BMI 8-16 ity of 30-39.9) 30-39.9) 00:00: [address] Branch Diabetes Diabetes Disease Active Unive rs type 2, type 2, 3-26 [place] of uncontroll uncontroll [place] [facility] Cervical Cervical Disease Active 2016-06 Unive rs polyp polyp 2-04 ity of 00:00: [address] Branch History of History of Disease Active U nivers drug abuse drug abuse 02-23 it y of 00:00: [place] 00 Medical Branch History of History of Disease Active U nivers alcohol alcohol 02-23 ity of abuse abuse 00:00: [place] 00 Medical Branch Depression Depression Disease Active U nivers , , 02-23 ity of unspecifie unspecifie [place] depression depression Br anch type type Bipolar Bipolar Disease Active Univers affective affective 02-23 [place] disorder, disorder, [place] remission remission [facility] status status Branch unspecifie unspecifie d d History of History of Disease Active U nivers tobacco tobacco 02-23 ity of use use 00:00: [place] 00 Medical Branch Allergies, Adverse Reactions, Alerts Allergy Allergy Status Severity Reaction(s) Onset Inactive Treating Comm ents Source Name Type Date Date Clinician n Propensi Active ty to 5-26 adverse 00:00: reaction 00 to drug Lisinopr Propensi Active il - ty to 3-23 Oral adverse 00:00: reaction 00 to drug Wyboo Propensi Active Rash Univers ty to 7-01 ity of adverse 00:00: [place] reaction 00 Medical s Branch Lisinopr Propensi Active Cough Univer s il ty to 918 ity of adverse 00:00: [place] reaction 00 Medical s Branch Social History Social Habit Start Date Stop Date Quantity Comments Source Cigarette 2019-05-10 2019-05-10 University of pack-years 00:00:00 00:00:00 [facility] Tobacco use and 2019-05-10 2019-05-10 Never used Universit y of exposure 00:00:00 00:00:00 [facility] Alcohol intake 2019-05-10 2019-05-10 Current University of 00:00:00 00:00:00 non-drinker of [facility] alcohol Branch (finding) Cigarettes smoked 2019-05-10 2019-05-10 Univers ity of current (pack per 00:00:00 00:00:00 [place] ) - Reported Branch History of tobacco 2017-02-20 Cigarette Smoker University of use 00:00:00 [facility] Sex [birth year] At [birth year] Universit y of 00:00:00 00:00:00 [facility] Smoking Status Start Date Stop Date Source Current every day smoker 2019-05-10 00:00:00 Uni versity of [facility] Medications Ordered Filled Start Stop Current Ordering Indication Dosage Frequency Signature Comments Components Source Medication Medication Date Date Medication? Clinician (SIG) Name Name TAKE 1 2021-0 No 10 TABLET 8-24 DAILY 00:00: DIRECTED. 00 &lt 2022-0 No 250 8-16 00:00: 00 &lt 2022-0 No 8-16 00:00: 00 ondansetron 2021-0 No 1mg 4 mg 7-20 disintegrat 00:00: ing tablet 00 TAKE 1 2021-0 No 200 CAPSULE BY 7-20 MOUTH EVERY 00:00: 8 HOURS 00 NEEDED INHALE 2 2021-0 No PUFFS BY 7-20 MOUTH EVERY 00:00: 4 TO 6 00 HOURS NEEDED &lt 2021-0 No 7-20 00:00: 00 INJECT 10 2021-0 No UNITS BELOW 7-20 THE SKIN 00:00: DAILY 00 ondansetron 2021-0 No 1mg 4 mg 5-26 disintegrat 00:00: ing tablet 00 benzonatate 2021-0 No 1mg 200 mg 5-26 capsule 00:00: 00 Advair 2021-0 No 1mcg/do Diskus 100 3-23 se mcg-50 00:00: mcg/dose 00 powder for inhalation benzonatate 2021-0 No 1mg 200 mg 3-23 capsule 00:00: 00 Dose 2-0 No Unknown 3-23 00:00: 00 Dose 2-0 No Unknown 3-23 00:00: 00 Dose 2-0 No Unknown 3-23 00:00: 00 Dose 2022-0 No Unknown 3-23 00:00: 00 Dose 2-0 No Unknown 3-23 00:00: 00 Dose 2-0 No Unknown 3-23 00:00: 00 Dose 2-0 No Unknown 3-23 00:00: 00 Dose 2-0 No Unknown 3-23 00:00: 00 Dose 2-0 No Unknown 3-23 00:00: 00 Dose 2022-0 No Unknown 3-23 00:00: 00 Dose 2-0 No Unknown 3-23 00:00: 00 Dose 2022-0 No Unknown 3-23 00:00: 00 Dose 2022-0 No Unknown 3-23 00:00: 00 Dose 2022-0 No Unknown 3-23 00:00: 00 Dose 2022-0 No Unknown 3-22 00:00: 00 Dose 2022-0 No Unknown 3-22 00:00: 00 Dose 2022-0 No Unknown 3-22 00:00: 00 Dose 2022-0 No Unknown 3-22 00:00: 00 Dose 2022-0 No Unknown 3-22 00:00: 00 Dose 2022-0 No Unknown 3-22 00:00: 00 Dose 2022-0 No Unknown 3-22 00:00: 00 Dose 2022-0 No Unknown 3-21 00:00: 00 Dose 2022-0 No Unknown 3-21 00:00: 00 Dose 2022-0 No Unknown 3-21 00:00: 00 Dose 2022-0 No Unknown 3-21 00:00: 00 Dose 2022-0 No Unknown 3-21 00:00: 00 Dose 2022-0 No Unknown 3-21 00:00: 00 Dose 2022-0 No Unknown 3-21 00:00: 00 Dose 2022-0 No Unknown 3-21 00:00: 00 Dose 2022-0 No Unknown 3-21 00:00: 00 Dose 2022-0 No Unknown 3-21 00:00: 00 Dose 2022-0 No Unknown 3-21 00:00: 00 Dose 2022-0 No Unknown 3-21 00:00: 00 Dose 2022-0 No Unknown 3-21 00:00: 00 Dose 2022-0 No Unknown 3-21 00:00: 00 Dose 2022-0 No Unknown 3-21 00:00: 00 Dose 2022-0 No Unknown 3-21 00:00: 00 Dose 2022-0 No Unknown 3-21 00:00: 00 Dose 2022-0 No Unknown 3-21 00:00: 00 Dose 2022-0 No Unknown 3-21 00:00: 00 Dose 2022-0 No Unknown 3-21 00:00: 00 Dose 2022-0 No Unknown 3-21 00:00: 00 Dose 2022-0 No Unknown 3-21 00:00: 00 Dose 2022-0 No Unknown 3-21 00:00: 00 Dose 2022-0 No Unknown 3-21 00:00: 00 Dose 2022-0 No Unknown 3-21 00:00: 00 Dose 2022-0 No Unknown 3-21 00:00: 00 Dose 2022-0 No Unknown 3-21 00:00: 00 Dose 2022-0 No Unknown 3-21 00:00: 00 Dose 2022-0 No Unknown 3-21 00:00: 00 Dose 2022-0 No Unknown 3-21 00:00: 00 Dose 2022-0 No Unknown 3-21 00:00: 00 Dose 2022-0 No Unknown 3-21 00:00: 00 Dose 2022-0 No Unknown 3-21 00:00: 00 Dose 2022-0 No Unknown 3-21 00:00: 00 Dose 2022-0 No Unknown 3-21 00:00: 00 Dose 2022-0 No Unknown 3-21 00:00: 00 Dose 2022-0 No Unknown 3-21 00:00: 00 Dose 2022-0 No Unknown 3-21 00:00: 00 Dose 2022-0 No Unknown 3-21 00:00: 00 Dose 2022-0 No Unknown 3-21 00:00: 00 Dose 2022-0 No Unknown 3-21 00:00: 00 Dose 2022-0 No Unknown 3-21 00:00: 00 Dose 2022-0 No Unknown 3-21 00:00: 00 Dose 2022-0 No Unknown 3-21 00:00: 00 Dose 2022-0 No Unknown 3-21 00:00: 00 Dose 2022-0 No Unknown 3-21 00:00: 00 Dose 2022-0 No Unknown 3-21 00:00: 00 Dose 2022-0 No Unknown 3-21 00:00: 00 Dose 2022-0 No Unknown 3-21 00:00: 00 Dose 2022-0 No Unknown 3-16 00:00: 00 Dose 2022-0 No Unknown 3-16 00:00: 00 Dose 2022-0 No Unknown 3-16 00:00: 00 Dose 2022-0 No Unknown 3-16 00:00: 00 Dose 2022-0 No Unknown 3-16 00:00: 00 Dose 2022-0 No Unknown 3-16 00:00: 00 Dose 2022-0 No Unknown 3-16 00:00: 00 Dose 2022-0 No Unknown 3-09 00:00: 00 Dose 2022-0 No Unknown 3-09 00:00: 00 Dose 2-0 No Unknown 3-09 00:00: 00 Dose 2-0 No Unknown 3-09 00:00: 00 Dose 2-0 No Unknown 3-09 00:00: 00 Dose 2-0 No Unknown 3-09 00:00: 00 Dose 2-0 No Unknown 3-09 00:00: 00 Dose 2-0 No Unknown 3-04 00:00: 00 Dose 2-0 No Unknown 3-04 00:00: 00 Dose 2-0 No Unknown 3-04 00:00: 00 Dose 2-0 No Unknown 3-04 00:00: 00 Dose 2-0 No Unknown 3-04 00:00: 00 Dose 2-0 No Unknown 3-04 00:00: 00 Dose 2-0 No Unknown 3-04 00:00: 00 Dose 2021-0 No Unknown 2-08 00:00: 00 Dose 2-0 No Unknown 2-01 00:00: 00 ondansetron No 1mg 8 mg 1-18 disintegrat 00:00: ing tablet 00 Dose 2021-0 No Unknown 1-18 00:00: 00 ProAir HFA No 2mcg/ac 90 1-14 tuation mcg/actuati 00:00: on aerosol 00 inhaler Victoza 2020-06 No (18 3-Daniel 0.6 2-14 mg/3 mg/0.1 mL 00:00: mL) (18 mg/3 00 mL) subcutaneou s pen injector Novolog 2020-06 No 5(3 mL) Flexpen 2-14 U-100 00:00: Insulin 00 aspart 100 unit/mL (3 mL) subcutaneou s Lantus 2020-06 No 10(3 Solostar 2-14 mL) U-100 00:00: Insulin 100 00 unit/mL (3 mL) subcutaneou s pen benzonatate 2020-06 No 1mg 100 mg 1-05 capsule 00:00: 00 diclofenac 2020-06 No 1mg sodium 75 0-20 mg 00:00: tablet,anna 00 yed release duloxetine 2020-06 No 1mg 60 mg 0-20 capsule,del 00:00: ayed 00 release Novolog 2021-1 No 5(3 mL) Flexpen 0-08 U-100 00:00: Insulin 00 aspart 100 unit/mL (3 mL) subcutaneou s Lantus 2020-1 No 10(3 Solostar 0-08 mL) U-100 00:00: Insulin 100 00 unit/mL (3 mL) subcutaneou s pen loratadine 2020-1 No 1mg 10 mg 0-08 tablet 00:00: 00 loratadine 2020-1 No 1mg 10 mg 0-08 tablet 00:00: 00 ProAir HFA 2020-0 No 2mcg/ac 90 9-03 tuation mcg/actuati 00:00: on aerosol 00 inhaler levofloxaci 2020-0 No 1mg n 500 mg 9- tablet 00:00: 00 ondansetron 2020-0 No 1mg 4 mg 02-08 disintegrat 00:00: ing tablet 00 azithromyci 2020-0 No mg n 250 mg 6-22 tablet 00:00: 00 benzonatate 2020-0 No 1mg 200 mg 6-22 capsule 00:00: 00 Novolog 2020-0 No 5(3 mL) Flexpen 5-27 U-100 00:00: Insulin 00 aspart 100 unit/mL (3 mL) subcutaneou s Novolog 2020-0 No 5(3 mL) Flexpen 5-27 U-100 00:00: Insulin 00 aspart 100 unit/mL (3 mL) subcutaneou s Lantus 2020-0 No 10(3 Solostar 5-26 mL) U-100 00:00: Insulin 100 00 unit/mL (3 mL) subcutaneou s pen triamcinolo 2020-0 No 1% ne 5-20 acetonide 00:00: 0.1 % 00 topical cream glipizide 2020-0 No 1mg 10 mg 5-02 tablet 00:00: 00 fenofibrate 1-0 No 1mg 120 mg 5-02 tablet 00:00: 00 rosuvastati 2020-0 No 1mg n 5 mg 5-02 tablet 00:00: 00 lisinopril 2020-0 No 1mg 2.5 mg 5-02 tablet 00:00: 00 ProAir HFA 2020-0 No 2mcg/ac 90 4-29 tuation mcg/actuati 00:00: on aerosol 00 inhaler loratadine 1-0 No 1mg 10 mg 4-29 tablet 00:00: 00 Tradjenta 5 1-0 No 1mg mg tablet 4-29 00:00: 00 metformin 1-0 No 1mg 1,000 mg 4-29 tablet 00:00: 00 gemfibrozil 1-0 No 1mg 600 mg 4-29 tablet 00:00: 00 loratadine 1-0 No 1mg 10 mg 2-24 tablet 00:00: 00 Tradjenta 5 1-0 No 1mg mg tablet 2-24 00:00: 00 gemfibrozil 2021-0 No 1mg 600 mg 2-24 tablet 00:00: 00 metformin 1-0 No 1mg 1,000 mg 2-24 tablet 00:00: 00 gemfibrozil 2019-1 No 1mg 600 mg 2-15 tablet 00:00: 00 ProAir HFA 2019-1 No 2mcg/ac 90 2-04 tuation mcg/actuati 00:00: on aerosol 00 inhaler Advair 2019-1 No 1mcg/do Diskus 100 2-04 se mcg-50 00:00: mcg/dose 00 powder for inhalation loratadine- 2019- No 1mg pseudoephed 2-04 rine ER 10 00:00: mg-240 mg 00 tablet,exte nded [id number] loratadine 2019-1 No 1mg 10 mg 2-04 tablet 00:00: 00 Tradjenta 5 2019-1 No 1mg mg tablet 2-04 00:00: 00 metformin 2019-1 No 1mg 1,000 mg 2-04 tablet 00:00: 00 gemfibrozil 2019-1 No 1mg 600 mg 2-04 tablet 00:00: 00 ibuprofen 2020-1 No 1mg 800 mg 2-04 tablet 00:00: 00 ProAir HFA 2019-1 No 2mcg/ac 90 1-12 tuation mcg/actuati 00:00: on aerosol 00 inhaler Advair 2019-1 No 1mcg/do Diskus 100 1-12 se mcg-50 00:00: mcg/dose 00 powder for inhalation loratadine- 2019-06 No 1mg pseudoephed 0-13 rine ER 10 00:00: mg-240 mg 00 tablet,exte nded [id number] loratadine 2020-1 No 1mg 10 mg 0-13 tablet 00:00: 00 Tradjenta 5 2020-1 No 1mg mg tablet 0-09 00:00: 00 Januvia 100 2020-1 No 1mg mg tablet 0-06 00:00: 00 metformin 2020-1 No 1mg 1,000 mg 0-06 tablet 00:00: 00 gemfibrozil 2020-1 No 1mg 600 mg 0-06 tablet 00:00: 00 loratadine 2020-0 No 1mg 10 mg 9-04 tablet 00:00: 00 amoxicillin 2020-0 No 1mg 875 mg 8-25 tablet 00:00: 00 metformin 2020-0 No 1mg 1,000 mg 8-10 tablet 00:00: 00 ibuprofen 2020-0 No 1mg 800 mg 8-10 tablet 00:00: 00 ProAir HFA 2020-0 No 2mcg/ac 90 7-30 tuation mcg/actuati 00:00: on aerosol 00 inhaler prednisone 2020-0 No 1mg 50 mg 7-30 tablet 00:00: 00 promethazin 2020-0 No 5mg/5 e-DM 6.25 7-18 mL mg-15 mg/5 00:00: mL oral 00 syrup ProAir HFA 2020-0 No 1mcg/ac 90 7-02 tuation mcg/actuati 00:00: on aerosol 00 inhaler Advair 2020-0 No 1mcg/do Diskus 100 6-09 se mcg-50 00:00: mcg/dose 00 powder for inhalation loratadine 2020-0 No 1mg 10 mg 6-09 tablet 00:00: 00 metformin 2020-0 No 1mg 1,000 mg 6-09 tablet 00:00: 00 ondansetron 2020-0 No 1mg 4 mg 5-22 disintegrat 00:00: ing tablet 00 indomethaci 2020-0 No 1mg n 50 mg 4-22 capsule 00:00: 00 Advair 2020-0 No 1mcg/do Diskus 100 3-30 se mcg-50 00:00: mcg/dose 00 powder for inhalation pantoprazol 2020-0 No 1mg e 20 mg 3-06 tablet,anna 00:00: yed release 00 loratadine 2020-0 No 1mg 10 mg 3-06 tablet 00:00: 00 ibuprofen 2020-0 No 1mg 800 mg 2-20 tablet 00:00: 00 methocarbam 2020-0 No 1mg ol 500 mg 2-20 tablet 00:00: 00 Claritin 10 2020-0 No 1mg mg tablet 2-07 00:00: 00 pantoprazol 2020-0 No 1mg e 20 mg 2-07 tablet,anna 00:00: yed release 00 ondansetron 2020-0 No 1mg 4 mg 2-07 disintegrat 00:00: ing tablet 00 ProAir HFA 2019-0 No 1mcg/ac 90 1-25 tuation mcg/actuati 00:00: on aerosol 00 inhaler pioglitazon 2020-0 No 1mg e 45 mg 1-25 tablet 00:00: 00 metformin 2020-0 No 1mg 1,000 mg 1-25 tablet 00:00: 00 atorvastati 2020-0 No 1mg n 20 mg 1-25 tablet 00:00: 00 ondansetron 2019-0 No 1mg 4 mg 1-25 disintegrat 00:00: ing tablet 00 duloxetine 2019-0 No 1mg 60 mg 1-25 capsule,del 00:00: ayed 00 release metFORMIN 2019- Yes 1000mg Take 1,000 Univers 1,000 mg 2-03 mg by ity of tablet 19:19: mouth 2 [place] 20 (two) Medical times Branch daily with meals. levonorgest 2018- Yes [id number] 1{tbl} Take 1 Univers rel-ethinyl 2-03 tablet by ity of estradiol 00:00: mouth [place] (SRONYX) 00 daily. Medical 0.1-20 Branch mg-mcg per tablet ondansetron 2018-06 No 1mg 4 mg 1-08 disintegrat 00:00: ing tablet 00 Tamiflu 75 2018- No 1mg mg capsule 1-08 00:00: 00 metoclopram 2018- No 1mg esperanza 10 mg 0-16 tablet 00:00: 00 meclizine 2018- No 1mg 12.5 mg 0-16 tablet 00:00: 00 ProAir HFA 2019-0 No 1mcg/ac 90 9-24 tuation mcg/actuati 00:00: on aerosol 00 inhaler Advair 2018-0 No 1mcg/do Diskus 100 9-24 se mcg-50 00:00: mcg/dose 00 powder for inhalation metformin 2018-0 No 1mg 1,000 mg 9-24 tablet 00:00: 00 naproxen 2019-0 No 1mg 500 mg 9-24 tablet 00:00: 00 prednisone 2018-0 No 1mg 10 mg 8-29 tablet 00:00: 00 Zofran 4 mg 2019-0 No 1mg tablet 8-29 00:00: 00 ProAir HFA 0 No 1mcg/ac 90 8-22 tuation mcg/actuati 00:00: on aerosol 00 inhaler metformin 2018-0 No 1mg 1,000 mg 7-17 tablet 00:00: 00 ProAir HFA 0 No 1mcg/ac 90 7-11 tuation mcg/actuati 00:00: on aerosol 00 inhaler loratadine 2018-0 No 1mg 10 mg 7-11 tablet 00:00: 00 hydrOXYzine 2018-0 Yes 25mg Take 25 mg Univers 25 mg 6-05 by mouth 2 ity of capsule 00:00: (two) [place] [id number] times Medical daily. Branch triamcinolo No 1% ne 6-04 acetonide 00:00: 0.1 % 00 topical cream loratadine 0 No 1mg 10 mg 6-04 tablet 00:00: 00 triamcinolo 0 Yes 1{dose} Apply 1 Univers ne 6-04 Dose to ity of acetonide 00:00[place] 0.1 % cream 00 area(s) 2 Med ical (two) Branch times daily as needed. pioglitazon 2018-0 Yes 45mg Take 45 mg Univers e 45 mg 6-03 by mouth ity of tablet 00:00: daily. [address] Branch promethazin 0 No 1mg e 12.5 mg 5-30 tablet 00:00: 00 DULoxetine 2018-0 Yes 30mg Take 30 mg U nivers 30 mg 5-26 by mouth ity of capsule 00:00: daily. [address] Branch ProAir HFA 0 No 1mcg/ac 90 5-07 tuation mcg/actuati 00:00: on aerosol 00 inhaler indomethaci 2018-0 No 1mg n 50 mg 5-07 capsule 00:00: 00 triamcinolo 2018-0 No 1% ne 4-30 acetonide 00:00: 0.1 % 00 topical cream metformin 0 No 1mg 1,000 mg 3-28 tablet 00:00: 00 metformin 2018-0 No 1mg 1,000 mg 2-26 tablet 00:00: 00 LEVEMIR 2019-0 Yes 80U Inject 80 Unive rs FLEXTOUCH 1-30 Units into ity of U-100 00:00: the skin [place] INSULN 100 00 every Medical unit/mL (3 morning. Branc h mL) injection gabapentin Yes TAKE 1 Unive rs 300 mg 1-15 CAPSULE BY ity of capsule 00:00: MOUTH [place] 00 THREE Medical TIMES A Branch DAY prednisone 2017-06 No 1mg 20 mg 2-20 tablet 00:00: 00 Vitamin D2 2017-06 No 1unit 50,000 unit 2-20 capsule 00:00: 00 indomethaci 2017-06 No 1mg n 50 mg 2-19 capsule 00:00: 00 meloxicam 2017- No 5mg 15 mg 0-17 tablet 00:00: 00 metformin 2017-06 No 1mg 1,000 mg 0-17 tablet 00:00: 00 metformin 2017-06 No 1mg 1,000 mg 0-04 tablet 00:00: 00 metformin 0 No 1mg 1,000 mg 9-19 tablet 00:00: 00 neomycin-po 0 No 4mg/mL- lymyxin-hyd 8-29 unit/mL rocort 3.5 00:00: -% mg-10,000 00 unit/mL-1 % ear drops,susp triamcinolo 0 No 1% ne 8-29 acetonide 00:00: 0.1 % 00 topical cream triamcinolo 0 No 1% ne 8-29 acetonide 00:00: 0.1 % 00 topical cream nifedipine 0 No 1mg ER 30 mg 8-29 tablet,exte 00:00: nded 00 release loratadine 2017-0 No 1mg 10 mg 8-29 tablet 00:00: 00 prednisone 2017-0 No 1mg 20 mg 8-29 tablet 00:00: 00 amoxicillin 2017-0 No 1mg 500 mg 8-29 capsule 00:00: 00 gabapentin 2017-0 No 1mg 300 mg 8-29 capsule 00:00: 00 triamcinolo 2017-0 No 1% ne 8-23 acetonide 00:00: 0.1 % 00 topical cream metformin 2018-0 No 1mg 1,000 mg 8-23 tablet 00:00: 00 naproxen 2018-0 No 1mg sodium 550 7-26 mg tablet 00:00: 00 metformin 2018-0 No 1mg 1,000 mg 7-26 tablet 00:00: 00 citalopram 2018-0 Yes 40mg Take 40 mg U nivers 40 mg 7-15 by mouth ity of tablet 00:00: daily. [address] naproxen 2018-0 No 1mg sodium 550 6-29 mg tablet 00:00: 00 Humulin N 2018-0 No unit/mL NPH U-100 6-13 Insulin 00:00: (isophane 00 susp) 100 unit/mL subcutaneou s Pepcid 20 2017-0 No 1mg mg tablet 6-13 00:00: 00 Celexa 40 2018-0 No 1mg mg tablet 6-13 00:00: 00 metformin 2018-0 No 1mg 1,000 mg 6-13 tablet 00:00: 00 naproxen 2018-0 No 1mg sodium 550 6-13 mg tablet 00:00: 00 hydroxyzine 2018-0 No 1mg HCl 25 mg 6-13 tablet 00:00: 00 Lamictal 25 2018-0 No 1mg mg tablet 6-13 00:00: 00 Seroquel 2018-0 No 1mg 100 mg 2-14 tablet 00:00: 00 loratadine 2017-0 No 1mg 10 mg 9-28 tablet 00:00: 00 Humulin R 2017-0 No 1unit/m Regular 9-14 L U-100 00:00: Insulin 100 00 unit/mL injection solution Humulin N 2017-0 No 1unit/m NPH U-100 9-14 L Insulin 00:00: (isophane 00 susp) 100 unit/mL subcutaneou s neomycin-po 2016-0 No 4mg/mL- lymyxin-hyd 9-07 unit/mL rocort 3.5 00:00: -% mg-10,000 00 unit/mL-1 % ear drops,susp promethazin 2016-0 No 1mg e 12.5 mg 9-07 tablet 00:00: 00 omeprazole 2016-0 No 1mg 20 mg 9- capsule,del 00:00: ayed 00 release triamcinolo 2017-0 No 1% ne 6-08 acetonide 00:00: 0.1 % 00 topical ointment metformin 2017-0 No 1mg 1,000 mg 6-01 tablet 00:00: 00 omeprazole 2017-0 No 1mg 20 mg 6-01 capsule,del 00:00: ayed 00 release gabapentin 2017-0 No 1mg 300 mg 4-07 capsule 00:00: 00 Novolin N 2017-0 No 10unit/ 100 unit/mL 3-02 mL subcutaneou 00:00: s 00 suspension metformin 2017-0 No 1mg 1,000 mg 3-02 tablet 00:00: 00 ibuprofen 2017-0 No 1mg 800 mg 3-02 tablet 00:00: 00 hydroxyzine 2017-0 No 1mg HCl 25 mg 2-02 tablet 00:00: 00 albuterol 2015-1 No 2mcg/ac sulfate HFA 1-10 tuation 90 00:00: mcg/actuati 00 on aerosol inhaler meloxicam 2016-1 No 1mg 15 mg 1-10 tablet 00:00: 00 gabapentin 2016-1 No 1mg 400 mg 1-10 capsule 00:00: 00 Actos 45 mg 2016-0 No 1mg tablet 9-22 00:00: 00 metformin 2016-0 No 1mg 1,000 mg 9-22 tablet 00:00: 00 Novolin N 2016-0 No 10unit/ 100 unit/mL 3-24 mL subcutaneou 00:00: s 00 suspension Actos 45 mg 2016-0 No 1mg tablet 3-24 00:00: 00 metformin 2016-0 No 1mg 1,000 mg 3-24 tablet 00:00: 00 Actos 45 mg 2016-0 No 1mg tablet 2-25 00:00: 00 metformin 2016-0 No 1mg 1,000 mg 1-21 tablet 00:00: 00 citalopram 2015-1 No 1mg 40 mg 2-30 tablet 00:00: 00 Depakote ER 2014-1 No 1mg 500 mg 1-17 tablet,exte 00:00: nded 00 release albuterol 2014-1 No 2mcg/ac sulfate HFA 0-01 tuation 90 00:00: mcg/actuati 00 on aerosol inhaler metformin 2014-1 No mg 500 mg 0-01 tablet 00:00: 00 gabapentin 2015-1 No 1mg 300 mg 0-01 capsule 00:00: 00 Medrol 2015-0 No 1mg (Daniel) 4 mg 6-26 tablets in 00:00: a dose pack 00 Medrol 2015-0 No 1mg (Daniel) 4 mg 6-22 tablets in 00:00: a dose pack 00 Abilify 10 2015-0 No 5mg mg tablet 6-18 00:00: 00 citalopram 2015-0 No 1mg 40 mg 6-18 tablet 00:00: 00 Abilify 10 2015-0 No 5mg mg tablet 5-21 00:00: 00 citalopram 2015-0 No 1mg 40 mg 5-13 tablet 00:00: 00 metformin 2015-0 No mg 500 mg 5-13 tablet 00:00: 00 citalopram 2015-0 No 1mg 40 mg 5-08 tablet 00:00: 00 Cipro 500 2015-0 No 1mg mg tablet 5-08 00:00: 00 metformin 2015-0 No mg 500 mg 5-08 tablet 00:00: 00 Immunizations Ordered Filled Immunization Date Status Comments [facility] e Immunization Name Name Influenza Virus 2019-05-10 Completed Universit y of Vaccine Quad .5 mL 00:00:00 [facility] [place] 6+ MO Branch TDAP 2017-07-20 Completed University 00:00:00 [facility] Influenza Virus 2017-04-09 Completed Universit y of Vaccine Quad IM 3+ 00:00:00 [facility] Vital Signs Vital Name Observation Time Observation Value Comments Source BP Systolic 2022-01-29 13:38:00 115 mm[Hg] BP Diastolic 2022-01-29 13:38:00 71 mm[Hg] Weight Measured 2022-01-29 13:38:00 152.00 pounds Height Measured 2022-01-29 13:38:00 61.00 inches Body Temperature 2022-01-29 13:38:00 97.60 degrees Heart Rate 2022-01-29 13:38:00 96.00 /min Respiratory Rate 2022-01-29 13:38:00 21.00 /min BP Systolic 2022-01-24 10:28:00 140 mm[Hg] BP Diastolic 2022-01-24 10:28:00 97 mm[Hg] Weight Measured 2022-01-24 10:28:00 142.40 pounds Height Measured 2022-01-24 10:28:00 61.00 inches Body Temperature 2022-01-24 10:28:00 98.00 degrees Heart Rate 2022-01-24 10:28:00 98.00 /min Respiratory Rate 2022-01-24 10:28:00 16.00 /min BP Systolic 2021-08-26 18:56:00 BP Diastolic 2021-08-26 18:56:00 Weight Measured 2021-08-26 18:56:00 150.00 pounds Height Measured 2021-08-26 18:56:00 61.00 inches Body Temperature 2021-08-26 18:56:00 Heart Rate 2021-08-26 18:56:00 Respiratory Rate 2021-08-26 18:56:00 BP Systolic 2021-07-26 19:50:00 BP Diastolic 2021-07-26 19:50:00 Weight Measured 2021-07-26 19:50:00 150.00 pounds Height Measured 2021-07-26 19:50:00 61.00 inches Body Temperature 2021-07-26 19:50:00 Heart Rate 2021-07-26 19:50:00 Respiratory Rate 2021-07-26 19:50:00 BP Systolic 2021-07-16 17:25:00 BP Diastolic 2021-07-16 17:25:00 Weight Measured 2021-07-16 17:25:00 150.00 pounds Height Measured 2021-07-16 17:25:00 61.00 inches Body Temperature 2021-07-16 17:25:00 Heart Rate 2021-07-16 17:25:00 Respiratory Rate 2021-07-16 17:25:00 BP Systolic 2021-07-09 10:33:00 BP Diastolic 2021-07-09 10:33:00 Weight Measured 2021-07-09 10:33:00 150.00 pounds Height Measured 2021-07-09 10:33:00 61.00 inches Body Temperature 2021-07-09 10:33:00 Heart Rate 2021-07-09 10:33:00 Respiratory Rate 2021-07-09 10:33:00 BP Systolic 2021-06-25 10:09:00 BP Diastolic 2021-06-25 10:09:00 Weight Measured 2021-06-25 10:09:00 150.00 pounds Height Measured 2021-06-25 10:09:00 61.00 inches Body Temperature 2021-06-25 10:09:00 Heart Rate 2021-06-25 10:09:00 Respiratory Rate 2021-06-25 10:09:00 BP Systolic 2021-05-21 17:52:00 123 mm[Hg] BP Diastolic 2021-05-21 17:52:00 87 mm[Hg] Weight Measured 2021-05-21 17:52:00 150.60 pounds Height Measured 2021-05-21 17:52:00 61.00 inches Body Temperature 2021-05-21 17:52:00 98.10 degrees Heart Rate 2021-05-21 17:52:00 110.00 /min Respiratory Rate 2021-05-21 17:52:00 16.00 /min BP Systolic 2021-03-27 15:44:00 128 mm[Hg] BP Diastolic 2021-03-27 15:44:00 88 mm[Hg] Weight Measured 2021-03-27 15:44:00 154.80 pounds Height Measured 2021-03-27 15:44:00 61.00 inches Body Temperature 2021-03-27 15:44:00 98.10 degrees Heart Rate 2021-03-27 15:44:00 112.00 /min Respiratory Rate 2021-03-27 15:44:00 16.00 /min Procedures Procedure Date / Time Performed Performing Clinician Sourc e Ear Lavage 2018-10-05 00:00:00 Rmvl Impacted Cerumen Spx 1/both 2015-10-11 00:00:00 Ears Plan of Care Planned Activity Planned Date Details Comments Source Goal Plan of Care Note [code = 95370-5] Goal Plan of Care Note [code = 26185-5] Goal Plan of Care Note [code = 23895-3] Goal Plan of Care Note [code = 00976-4] Goal Plan of Care Note [code = 16409-7] Goal Plan of Care Note [code = 49216-3] Goal Plan of Care Note [code = 63541-2] Goal Plan of Care Note [code = 19152-9] Goal Plan of Care Note [code = 73814-8] Goal Plan of Care Note [code = 20334-1] Goal Plan of Care Note [code = 40947-8] Goal Plan of Care Note [code = 18283-6] Goal Plan of Care Note [code = 98901-8] Goal Plan of Care Note [code = 86397-4] Goal Plan of Care Note [code = 50326-4] Goal Plan of Care Note [code = 39291-6] Goal Plan of Care Note [code = 54631-7] Goal Plan of Care Note [code = 04438-3] Goal Plan of Care Note [code = 54738-1] Goal Plan of Care Note [code = 64049-6] Goal Plan of Care Note [code = 58590-9] Goal Plan of Care Note [code = 80735-2] Goal Plan of Care Note [code = 59712-9] Goal Plan of Care Note [code = 00361-2] Goal Plan of Care Note [code = 38684-3] Goal Plan of Care Note [code = 22057-8] Goal Plan of Care Note [code = 75289-8] Goal Plan of Care Note [code = 05574-3] Goal Plan of Care Note [code = 42545-1] Goal Plan of Care Note [code = 49354-3] Goal Plan of Care Note [code = 81744-5] Goal Plan of Care Note [code = 55123-3] Goal Plan of Care Note [code = 48244-9] Goal Plan of Care Note [code = 79591-4] Goal Plan of Care Note [code = 43926-3] Goal Plan of Care Note [code = 43464-5] Goal Plan of Care Note [code = 03439-1] Goal Plan of Care Note [code = 91109-6] Goal Plan of Care Note [code = 61813-7] Goal Plan of Care Note [code = 69286-5] Goal Plan of Care Note [code = 12544-9] Goal Plan of Care Note [code = 27947-6] Goal Plan of Care Note [code = 58677-7] Goal Plan of Care Note [code = 90728-5] Goal Plan of Care Note [code = 27617-0] Goal Plan of Care Note [code = 02478-2] Goal Plan of Care Note [code = 59945-4] Goal Plan of Care Note [code = 40116-2] Goal Plan of Care Note [code = 41183-2] Goal Plan of Care Note [code = 93030-1] Goal Plan of Care Note [code = 79399-8] Goal Plan of Care Note [code = 32153-0] Goal Plan of Care Note [code = 21176-2] Goal Plan of Care Note [code = 50954-6] Goal Plan of Care Note [code = 79452-7] Goal Plan of Care Note [code = 17339-4] Goal Plan of Care Note [code = 11232-9] Goal Plan of Care Note [code = 66828-1] Goal Plan of Care Note [code = 80437-1] Goal Plan of Care Note [code = 59179-2] Goal Plan of Care Note [code = 45433-0] Goal Plan of Care Note [code = 86857-0] Goal Plan of Care Note [code = 37079-3] Goal Plan of Care Note [code = 70151-1] Goal Plan of Care Note [code = 84031-5] Goal Plan of Care Note [code = 44140-8] Goal Plan of Care Note [code = 36954-5] Goal Plan of Care Note [code = 37834-8] Goal Plan of Care Note [code = 86262-7] Goal Plan of Care Note [code = 85091-5] Goal Plan of Care Note [code = 63950-2] Goal Plan of Care Note [code = 51943-1] Goal Plan of Care Note [code = 31232-4] Goal Plan of Care Note [code = 43704-5] Goal Plan of Care Note [code = 21465-9] Goal Plan of Care Note [code = 39703-4] Goal Plan of Care Note [code = 26058-7] Goal Plan of Care Note [code = 97274-7] Goal Plan of Care Note [code = 20613-8] Goal Plan of Care Note [code = 03915-9] Goal Plan of Care Note [code = 69586-2] Goal Plan of Care Note [code = 92544-7] Goal Plan of Care Note [code = 87932-9] Goal Plan of Care Note [code = 06038-6] Goal Plan of Care Note [code = 84047-0] Goal Plan of Care Note [code = 86082-4] Encounters Start End Encounter Admission Attending Care Care Encounter Source Date/Time Date/Time Type Type Clinicians Facility Department ID 2022-01-29 2022-01-29 Outpatient [id number] 00:00:00 00:00:00 Visit 48b7-4ru0 1r9-7he6-k -cj47-90h [id number] 2020-08-23 2020-08-23 Patient Angel [facility] [id number] 00:00:00 00:00:00 Outreach [facility] [id number] [facility] [id number] [facility] [id number] 2020-08-23 2020-08-23 Patient Angel [facility] [id number] Univers 00:00:00 00:00:00 Outreach [facility] [id number] i [facility] [place] [facility] [id number] Me dical 388 Branch Results Test Description Test Time Test Comments Results Result Comments Source CULTURE, URINE 2022-02-01 SPECIMEN NUMBER: 10:17:33 [id number] CULTURE, URINE SPECIMEN NUMBER: [id number] SPECIMEN COMMENT: URINE SOURCE: URINE REPORT STATUS: FINAL ISOLATE NUMBER 1: IDENTIFICATION: 02/01/2022 10-50,000 CFU/ML BETA-STREPTOCOCCUS GROUP B ADDITIONAL OBSERVATIONS: PENICILLIN AND AMPICILLIN ARE DRUGS OF CHOICE FOR TREATMENT OF B-HEMOLYTIC STREPTOCOCCAL INFECTIONS. SUSCEPTIBILITY TESTING OF PENICILLIN AND OTHER B-LACTAMS APPROVED BY THE [place] FOOD AND DRUG ADMINISTRATION FOR TREATMENT OF B-HEMOLYTIC STREPTOCOCCAL INFECTIONS NEED NOT BE PERFORMED ROUTINELY. ADDITIONAL OBSERVATIONS: 02/01/2022 10-50,000 CFU/ML UROGENITAL MICHELA PRESENT NO COMMON PATHOGENS HEMOGLOBIN A1c 2022-01-31 09:09:10 Test Item Value Reference Range Interpretation Comme nts HEMOGLOBIN A1c (test code = >15.5 % 4.2-5.6 H [employer] 61014) GUIDELINES FOR HGB A1C: PREDIABETES/INC REASED RISK . . . . . . . 5.7-6.4% DIAG NOSIS OF DIABETES . . . . . . . . . >=6 .5% WITH CONFIRMATION OR APPROPRIATE SYM PTOMS NOTE: ASSAY MAY BE AFFECTED BY HEM OGLOBINOPATHIES (SICKLE CELL ANEMIA, S- C DISEASE, OTHERS) OR ARTIFICIALLY LO WERED BY DECREASED RED CELL SURVIVAL ( HEMOLYTIC ANEMIAS, BLOOD LOSS, ETC.). CO NSIDER ALTERNATE TESTING OR LABORATORY C ONSULTATION. LIPID [id number] 05:23:43 Test Item Value Reference Range Interpretation Comments CHOLESTEROL (test 205 MG/DL <200 H code = 2210) TRIGLYCERIDES (test 188 MG/DL <150 H code = 2232) HDL CHOLESTEROL (test 75 MG/DL >39 code = 2220) CALC LDL CHOL (test 100 MG/DL <100 H NOTE: C ALCULATED LDL code = 2237) IS BASED ON NINOSKA-TENORIO METHOD WHICHINCLUDES ADJUSTABLE TRIGLYCERIDE:VL DL CHOLESTEROL RAT IO.THIS FACTOR VARIES B Y MEASURED TRIGLY CERIDE AND NON-HDLCHOL ESTEROL CONCENTRATIONS WITH INCREASED CALCU LATED LDL SEENIN HIGH ER TRIGLYCERIDE OR LOWER NON-HDL SPECIME NS. FOR MOREINFORMATION , SEE CLIENT ANNOUNCE MENT AT [email or web address] [email or web address] RATIO LDL/HDL 1.33 RATIO <3.22 (test code = 2238) COMPREHENSIVE METABOLIC [id number] 05:23:43 Test Item Value Reference Range Interpretation Comments GLUCOSE (test code = 138 MG/DL 70-99 H 2216) BUN (test code = 10 MG/DL 6-20 2207) CREATININE (test 0.31 MG/DL 0.60-1.30 L code = 2214) eGFR (2020 CKD-EPI) 134 >60 (test code = 64563) ML/MIN/1.73 CALC BUN/CREAT (test 32 RATIO 6-28 H code = 2235) SODIUM (test code = 140 MEQ/L 523-271 3975) POTASSIUM (test code 3.6 MEQ/L 3.5-5.4 = 2227) CHLORIDE (test code 103 MEQ/L 95-107 = 2214) CARBON DIOXIDE (test 27 MEQ/L 19-31 code = 2206) CALCIUM (test code = 9.1 MG/DL 8.5-10.5 2208) PROTEIN, TOTAL (test 6.5 G/DL 6.1-8.3 code = 2229) ALBUMIN (test code = 4.1 G/DL 3.5-5.2 2200) CALC GLOBULIN (test 2.4 G/DL 1.9-3.7 code = 224) CALC A/G RATIO (test 1.7 RATIO 1.0-2.6 code = 2234) BILIRUBIN, TOTAL 0.2 MG/DL See_Comment [Automated message] (test code = 2206) The syste m which generated this result transmitted ref erence range: <=1.2. T he reference range was not used to int erpret this result as normal/abnormal . ALKALINE PHOSPHATASE 114 U/L 40-113 H (test code = 2203) AST (test code = 32 U/L 9-40 2217) ALT (test code = 46 U/L 5-40 H UNLESS OTH ERWISE 2218) INDICATED, ALL TESTING PERFORM ED ATCLINICAL PATH OLOGY LABORATORIES, [facility]. [address] [place] [id number] [place] [address] DIRECTOR: SARY LILLY M.D. CLIA NUMBER [id number] CAP ACCREDITATION N O. [id number] ALBUMIN/CREATININE RATIO, URINE, [id number] 04:42:57 Test Item Value Reference Range Interpretation Comments CREATININE, URINE, 48.4 MG/DL NOT ESTAB RANDOM (test code = 2072) ALBUMIN, URINE, 2.5 MG/DL NOT ESTAB RANDOM (test code = 98270) CALC ALBUMIN/CREAT, 52 MG/G <30 H Note: RND (test code = Albumin/Cre atinine 93128) ratio reference interval reflec ts ADA and NKF guideli ayleen. SARS-CoV-2 (COVID-19), RT-PCR/[id number] 08:05:41 Test Item Value Reference Interpretation Comments Range SARS-CoV-2 NEGATIVE SEE NOTE SARS-CoV-2 RNA NOT INTERPRETATION DETECTEDNegat riri (test code = 24809) results do not preclude SARS-CoV-2 infe ction and should notb e used as the sole bas is for patient managem ent decisions. Negativeresults must be combined with c linical observations, p atient history,and epidemiological information. Op timum specimen types and timingfor peak viral levels during infections caus ed by SARS-CoV-2 have notbeen determined. Col lection of multiple spe cimens or types ofspec imens may be necessar y to detect virus. I mproper specimencollect ion and handling, seque nce variability und er primers/probes, or organism presen t below the limit of de tection may lead to falsenegative r esults. Positive and ne gative predictive valu es oftesting are h ighly dependent on prevalence. Fal se negative testre sults are more likely when prevalence is h igh. EFFECTIVE 08/19, SPUTUM SPECIMEN S CAN NO LONGER BE TESTE D WITHTHIS ORDER CODE. FOR SALIVA, ORA L FLUID TESTING AND SPECIMENREQUIRE MENTS, PLEASE REFER TO ORDER CODE 3509. SOURCE (test code = NOT SPE[place]IF[place]: [place] [address]) Almaz Ely Rita l-Time RT-PCR. The exp ected result or refer ence range is NEGATI VE (Not Detected). For more information reg arding COVID-19 testin g to include clinicalinforma tion, methodology det ail, intended use, F DA authorization andrecommended fact sheets for payton ents or healthcare prov iders, see Red Zebra Announcement: SARS-CoV-2 (COV ID-19) by NAAT at URL below (note,fact shee ts are provided by met hod given in report:https:// [email or web address] ans/clie nt-communicatio ns/ Alternatively, see downloadable PD F fact sheet at:https://www. [employer].net/COVID-19-RT -PCR UNLESS OTHERWIS E INDICATED, ALL TESTING PERFORMED [facility] NICAL PATH[facility] [address] [place] [address] 4 LABORATORY DIRE CTOR: SARY HARRY M.D. CLIA NUMBER [id number] [place] [id number] SARS-CoV-2 (COVID-19) by RT-PCR (HIGH RISK)2021-08-29 00:00:00 Test Item Value Reference Range Interpretation Comments SARS-CoV-2 INTERPRETATION (test NEGATIVE code = 02711) SOURCE (test code = 02283) NOT SPECIFIED SARS-CoV-2 (COVID-19) by RT-PCR (HIGH RISK)2021-08-29 00:00:00 Test Item Value Reference Range Interpretation Comments SARS-CoV-2 INTERPRETATION (test NEGATIVE code = 02523) SOURCE (test code = 26498) NOT SPECIFIED SARS-CoV-2 (COVID-19), RT-PCR/[id number] 14:35:57 Test Item Value Reference Interpretation Comments Range SARS-CoV-2 POSITIVE SEE NOTE A SARS-CoV-2 RNA INTERPRETATION DETECTEDPosit riri results (test code = 43693) are naomie cative of the presence of [...] code = NOT SPECIFIED Note: [place] [address]) Almaz Ely Rita l-Time RT-PCR. The exp ected result or refer ence range is NEGATIVE (No t Detected). For more information reg arding COVID-19 testin g to include clinicalinforma tion, methodology det ail, intended use, F DA authorization andrecommended fact sheets for payton ents or healthcare prov iders, see New[employer] Announc ement: SARS-CoV-2 (COV ID-19) by NAAT at URL bel ow (note,fact shee ts are provided by met hod given in report:https:// www.[employer]/clinician s/client-c ommunications/ Alternatively, see downloadable PD F fact sheet at:https://www. [employer].co m/JEGDQ-22-WE-P CR UNLESS OTHERWISE INDIC ATED, ALL TESTING PERFORM ED ATCLINICAL PATH OLOGY LABORATORIES, [place] [address] [facility] [place] [address] LABORATORY DIRE CTOR: Alesha ROSAS. CLIA NUMBER [id number] CAP ACCREDITATION N O. [id number] SARS-CoV-2 (COVID-19) by RT-PCR (HIGH RISK)2021-06-28 00:00:00 Test Item Value Reference Range Interpretation Comments SARS-CoV-2 INTERPRETATION (test POSITIVE code = 43690) SOURCE (test code = 87311) NOT SPECIFIED SARS-CoV-2 (COVID-19) by RT-PCR (HIGH RISK)2021-06-28 00:00:00 Test Item Value Reference Range Interpretation Comments SARS-CoV-2 INTERPRETATION (test POSITIVE code = 33018) SOURCE (test code = 00370) NOT SPECIFIED REFLEXED LDL [REFLEX]2021-03-30 00:00:00 Test Item Value Reference Range Interpretation Comments LDL DIRECT (test code = 4228) 123 MG/DL CBC W/AUTO [id number] 00:00:00 Test Item Value Reference Range Interpretation Comments WBC (test code = 1001) 7.5 K/UL RBC (test code = 1002) 4.71 M/UL HEMOGLOBIN (test code = 1003) 16.0 G/DL HEMATOCRIT (test code = 1004) 42.9 % MCV (test code = 1005) 91.1 fL MCH (test code = 1006) 34.0 PG MCHC (test code = 1007) 37.3 G/DL RDW (test code = 1038) 11.9 % NEUTROPHILS (test code = 1008) 52.8 % LYMPHOCYTES (test code = 1010) 41.0 % MONOCYTES (test code = 1011) 3.7 % EOSINOPHILS (test code = 1012) 1.3 % BASOPHILS (test code = 1013) 0.4 % IMMATURE GRANULOCYTES (test 0.8 % code = 1036) NUCLEATED RBCS (test code = 0.0 /100WBC'S 1065) PLATELET COUNT (test code = 235 K/UL 1015) ABSOLUTE NEUTROPHILS (test code 3.97 K/UL = 1066) ABSOLUTE LYMPHOCYTES (test code 3.08 K/UL = 1067) ABSOLUTE MONOCYTES (test code = 0.28 K/UL 1068) ABSOLUTE EOSINOPHILS (test code 0.10 K/UL = 1040) ABSOLUTE BASOPHILS (test code = 0.03 K/UL 1069) ABS IMMATURE GRANULOCYTES (test 0.06 K/UL code = 1020) ABS NUCLEATED RBCS (test code = 0.00 K/UL 57156) CBC W/AUTO [id number] 00:00:00 Test Item Value Reference Range Interpretation Comments WBC (test code = 1001) 7.5 K/UL RBC (test code = 1002) 4.71 M/UL HEMOGLOBIN (test code = 1003) 16.0 G/DL HEMATOCRIT (test code = 1004) 42.9 % MCV (test code = 1005) 91.1 fL MCH (test code = 1006) 34.0 PG MCHC (test code = 1007) 37.3 G/DL RDW (test code = 1038) 11.9 % NEUTROPHILS (test code = 1008) 52.8 % LYMPHOCYTES (test code = 1010) 41.0 % MONOCYTES (test code = 1011) 3.7 % EOSINOPHILS (test code = 1012) 1.3 % BASOPHILS (test code = 1013) 0.4 % IMMATURE GRANULOCYTES (test 0.8 % code = 1036) NUCLEATED RBCS (test code = 0.0 /100WBC'S 1065) PLATELET COUNT (test code = 235 K/UL 1015) ABSOLUTE NEUTROPHILS (test code 3.97 K/UL = 1066) ABSOLUTE LYMPHOCYTES (test code 3.08 K/UL = 1067) ABSOLUTE MONOCYTES (test code = 0.28 K/UL 1068) ABSOLUTE EOSINOPHILS (test code 0.10 K/UL = 1040) ABSOLUTE BASOPHILS (test code = 0.03 K/UL 1069) ABS IMMATURE GRANULOCYTES (test 0.06 K/UL code = 1020) ABS NUCLEATED RBCS (test code = 0.00 K/UL 59644) CBC W/AUTO [id number] 00:00:00 Test Item Value Reference Range Interpretation Comments WBC (test code = 1001) 7.5 K/UL RBC (test code = 1002) 4.71 M/UL HEMOGLOBIN (test code = 1003) 16.0 G/DL HEMATOCRIT (test code = 1004) 42.9 % MCV (test code = 1005) 91.1 fL MCH (test code = 1006) 34.0 PG MCHC (test code = 1007) 37.3 G/DL RDW (test code = 1038) 11.9 % NEUTROPHILS (test code = 1008) 52.8 % LYMPHOCYTES (test code = 1010) 41.0 % MONOCYTES (test code = 1011) 3.7 % EOSINOPHILS (test code = 1012) 1.3 % BASOPHILS (test code = 1013) 0.4 % IMMATURE GRANULOCYTES (test 0.8 % code = 1036) NUCLEATED RBCS (test code = 0.0 /100WBC'S 1065) PLATELET COUNT (test code = 235 K/UL 1015) ABSOLUTE NEUTROPHILS (test code 3.97 K/UL = 1066) ABSOLUTE LYMPHOCYTES (test code 3.08 K/UL = 1067) ABSOLUTE MONOCYTES (test code = 0.28 K/UL 1068) ABSOLUTE EOSINOPHILS (test code 0.10 K/UL = 1040) ABSOLUTE BASOPHILS (test code = 0.03 K/UL 1069) ABS IMMATURE GRANULOCYTES (test 0.06 K/UL code = 1020) ABS NUCLEATED RBCS (test code = 0.00 K/UL 56293) COMPREHENSIVE METABOLIC [id number] 00:00:00 Test Item Value Reference Range Interpretation Comments GLUCOSE (test code = 2217) 589 MG/DL BUN (test code = 2208) 18 MG/DL CREATININE (test code = 2214) 0.59 MG/DL eGFR AMER. (test code 131 ML/MIN/1.73 = 50489) eGFR NON- AMER. (test 113 ML/MIN/1.73 code = 64143) CALC BUN/CREAT (test code = 31 RATIO 2235) SODIUM (test code = 2231) 128 MEQ/L POTASSIUM (test code = 2228) 4.4 MEQ/L CHLORIDE (test code = 2215) 87 MEQ/L CARBON DIOXIDE (test code = 21 MEQ/L 2206) CALCIUM (test code = 2209) 9.6 MG/DL PROTEIN, TOTAL (test code = 7.0 G/DL 2228) ALBUMIN (test code = 2201) 4.5 G/DL CALC GLOBULIN (test code = 2.5 G/DL 2240) CALC A/G RATIO (test code = 1.8 RATIO 2234) BILIRUBIN, TOTAL (test code = 0.2 MG/DL 2206) ALKALINE PHOSPHATASE (test 225 U/L code = 2204) AST (test code = 2218) <5 U/L ALT (test code = 2219) 28 U/L COMPREHENSIVE METABOLIC [id number] 00:00:00 Test Item Value Reference Range Interpretation Comments GLUCOSE (test code = 2217) 589 MG/DL BUN (test code = 2208) 18 MG/DL CREATININE (test code = 2214) 0.59 MG/DL eGFR AMER. (test code 131 ML/MIN/1.73 = 12177) eGFR NON- AMER. (test 113 ML/MIN/1.73 code = 74631) CALC BUN/CREAT (test code = 31 RATIO 2235) SODIUM (test code = 2231) 128 MEQ/L POTASSIUM (test code = 2228) 4.4 MEQ/L CHLORIDE (test code = 2215) 87 MEQ/L CARBON DIOXIDE (test code = 21 MEQ/L 220) CALCIUM (test code = 2209) 9.6 MG/DL PROTEIN, TOTAL (test code = 7.0 G/DL 2228) ALBUMIN (test code = 2201) 4.5 G/DL CALC GLOBULIN (test code = 2.5 G/DL 2240) CALC A/G RATIO (test code = 1.8 RATIO 2234) BILIRUBIN, TOTAL (test code = 0.2 MG/DL 2206) ALKALINE PHOSPHATASE (test 225 U/L code = 2204) AST (test code = 2218) <5 U/L ALT (test code = 2219) 28 U/L LIPID PANEL WITH REFLEX DIRECT [id number] 00:00:00 Test Item Value Reference Range Interpretation Comments CHOLESTEROL (test code = 2210) 294 MG/DL TRIGLYCERIDES (test code = 2232) 1828 MG/DL HDL CHOLESTEROL (test code = 42 MG/DL 2220) CALC LDL CHOL (test code = 2237) (NOTE) MG/DL RISK RATIO LDL/HDL (test code = (NOTE) RATIO 2238) LIPID PANEL WITH REFLEX DIRECT [id number] 00:00:00 Test Item Value Reference Range Interpretation Comments CHOLESTEROL (test code = 2210) 294 MG/DL TRIGLYCERIDES (test code = 2232) 1828 MG/DL HDL CHOLESTEROL (test code = 42 MG/DL 2220) CALC LDL CHOL (test code = 2237) (NOTE) MG/DL RISK RATIO LDL/HDL (test code = (NOTE) RATIO 2238) HEMOGLOBIN [id number] 00:00:00 Test Item Value Reference Range Interpretation Comments HEMOGLOBIN A1c (test code = 64497) 14.2 % HEMOGLOBIN [id number] 00:00:00 Test Item Value Reference Range Interpretation Comments HEMOGLOBIN A1c (test code = 36646) 14.2 % HEMOGLOBIN [id number] 00:00:00 Test Item Value Reference Range Interpretation Comments HEMOGLOBIN A1c (test code = 59262) 14.2 % C-REACTIVE [id number] 00:00:00 Test Item Value Reference Range Interpretation Comments C-REACTIVE PROTEIN (test code = <0.3 MG/DL 3513) C-REACTIVE [id number] 00:00:00 Test Item Value Reference Range Interpretation Comments C-REACTIVE PROTEIN (test code = <0.3 MG/DL 3513) SEDIMENTATION [id number] 00:00:00 Test Item Value Reference Range Interpretation Comments SEDIMENTATION RATE (test code = 12 MM/HOUR 1017) SEDIMENTATION [id number] 00:00:00 Test Item Value Reference Range Interpretation Comments SEDIMENTATION RATE (test code = 12 MM/HOUR 1017) [id number] 00:00:00 Test Item Value Reference Range Interpretation Comments TSH, THIRD GENERATION (test code 1.210 UIU/ML = 2821) [id number] 00:00:00 Test Item Value Reference Range Interpretation Comments TSH, THIRD GENERATION (test code 1.210 UIU/ML = 2821) [id number] 00:00:00 Test Item Value Reference Range Interpretation Comments TSH, THIRD GENERATION (test code 1.210 UIU/ML = 2821) CBC W/AUTO [id number] 00:00:00 Test Item Value Reference Range Interpretation Comments WBC (test code = 1001) 8.7 K/UL RBC (test code = 1002) 4.61 M/UL HEMOGLOBIN (test code = 1003) 14.3 G/DL HEMATOCRIT (test code = 1004) 42.3 % MCV (test code = 1005) 91.8 fL MCH (test code = 1006) 31.0 PG MCHC (test code = 1007) 33.8 G/DL RDW (test code = 1038) 11.6 % NEUTROPHILS (test code = 1008) 58.9 % LYMPHOCYTES (test code = 1010) 29.9 % MONOCYTES (test code = 1011) 4.5 % EOSINOPHILS (test code = 1012) 5.4 % BASOPHILS (test code = 1013) 0.5 % IMMATURE GRANULOCYTES (test 0.8 % code = 1036) NUCLEATED RBCS (test code = 0.0 /100WBC'S 1065) PLATELET COUNT (test code = 258 K/UL 1015) ABSOLUTE NEUTROPHILS (test code 5.16 K/UL = 1066) ABSOLUTE LYMPHOCYTES (test code 2.61 K/UL = 1067) ABSOLUTE MONOCYTES (test code = 0.39 K/UL 1068) ABSOLUTE EOSINOPHILS (test code 0.47 K/UL = 1040) ABSOLUTE BASOPHILS (test code = 0.04 K/UL 1069) ABS IMMATURE GRANULOCYTES (test 0.07 K/UL code = 1020) ABS NUCLEATED RBCS (test code = 0.00 K/UL 57527) CBC W/AUTO [id number] 00:00:00 Test Item Value Reference Range Interpretation Comments WBC (test code = 1001) 8.7 K/UL RBC (test code = 1002) 4.61 M/UL HEMOGLOBIN (test code = 1003) 14.3 G/DL HEMATOCRIT (test code = 1004) 42.3 % MCV (test code = 1005) 91.8 fL MCH (test code = 1006) 31.0 PG MCHC (test code = 1007) 33.8 G/DL RDW (test code = 1038) 11.6 % NEUTROPHILS (test code = 1008) 58.9 % LYMPHOCYTES (test code = 1010) 29.9 % MONOCYTES (test code = 1011) 4.5 % EOSINOPHILS (test code = 1012) 5.4 % BASOPHILS (test code = 1013) 0.5 % IMMATURE GRANULOCYTES (test 0.8 % code = 1036) NUCLEATED RBCS (test code = 0.0 /100WBC'S 1065) PLATELET COUNT (test code = 258 K/UL 1015) ABSOLUTE NEUTROPHILS (test code 5.16 K/UL = 1066) ABSOLUTE LYMPHOCYTES (test code 2.61 K/UL = 1067) ABSOLUTE MONOCYTES (test code = 0.39 K/UL 1068) ABSOLUTE EOSINOPHILS (test code 0.47 K/UL = 1040) ABSOLUTE BASOPHILS (test code = 0.04 K/UL 1069) ABS IMMATURE GRANULOCYTES (test 0.07 K/UL code = 1020) ABS NUCLEATED RBCS (test code = 0.00 K/UL 06022) CBC W/AUTO [id number] 00:00:00 Test Item Value Reference Range Interpretation Comments WBC (test code = 1001) 8.7 K/UL RBC (test code = 1002) 4.61 M/UL HEMOGLOBIN (test code = 1003) 14.3 G/DL HEMATOCRIT (test code = 1004) 42.3 % MCV (test code = 1005) 91.8 fL MCH (test code = 1006) 31.0 PG MCHC (test code = 1007) 33.8 G/DL RDW (test code = 1038) 11.6 % NEUTROPHILS (test code = 1008) 58.9 % LYMPHOCYTES (test code = 1010) 29.9 % MONOCYTES (test code = 1011) 4.5 % EOSINOPHILS (test code = 1012) 5.4 % BASOPHILS (test code = 1013) 0.5 % IMMATURE GRANULOCYTES (test 0.8 % code = 1036) NUCLEATED RBCS (test code = 0.0 /100WBC'S 1065) PLATELET COUNT (test code = 258 K/UL 1015) ABSOLUTE NEUTROPHILS (test code 5.16 K/UL = 1066) ABSOLUTE LYMPHOCYTES (test code 2.61 K/UL = 1067) ABSOLUTE MONOCYTES (test code = 0.39 K/UL 1068) ABSOLUTE EOSINOPHILS (test code 0.47 K/UL = 1040) ABSOLUTE BASOPHILS (test code = 0.04 K/UL 1069) ABS IMMATURE GRANULOCYTES (test 0.07 K/UL code = 1020) ABS NUCLEATED RBCS (test code = 0.00 K/UL 43468) LIZBETH NON-REFLEX TO [id number] 00:00:00 Test Item Value Reference Range Interpretation Comments ANTI-NUCLEAR ANTIBODIES (test code = NEGATIVE 3506) LIZBETH NON-REFLEX TO [id number] 00:00:00 Test Item Value Reference Range Interpretation Comments ANTI-NUCLEAR ANTIBODIES (test code = NEGATIVE 3506) [id number] 00:00:00 Test Item Value Reference Range Interpretation Comments FERRITIN (test code = 5) 99 NG/ML [id number] 00:00:00 Test Item Value Reference Range Interpretation Comments FERRITIN (test code = 2075) 99 NG/ML SEDIMENTATION [id number] 00:00:00 Test Item Value Reference Range Interpretation Comments SEDIMENTATION RATE (test code = 8 MM/HOUR 1017) SEDIMENTATION [id number] 00:00:00 Test Item Value Reference Range Interpretation Comments SEDIMENTATION RATE (test code = 8 MM/HOUR 1017) [id number] 00:00:00 Test Item Value Reference Range Interpretation Comments AMYLASE (test code = 2205) 79 U/L [id number] 00:00:00 Test Item Value Reference Range Interpretation Comments AMYLASE (test code = 2205) 79 U/L [id number] 00:00:00 Test Item Value Reference Range Interpretation Comments LIPASE (test code = 8) 171 U/L [id number] 00:00:00 Test Item Value Reference Range Interpretation Comments LIPASE (test code = 2057) 171 U/L [id number] 00:00:00 Test Item Value Reference Range Interpretation Comments LIPASE (test code = 205) 171 U/L HEMOGLOBIN [id number] 00:00:00 Test Item Value Reference Range Interpretation Comments HEMOGLOBIN A1c (test code = 43617) 14.5 % HEMOGLOBIN [id number] 00:00:00 Test Item Value Reference Range Interpretation Comments HEMOGLOBIN A1c (test code = 20585) 14.5 % HEMOGLOBIN [id number] 00:00:00 Test Item Value Reference Range Interpretation Comments HEMOGLOBIN A1c (test code = 54879) 14.5 % LIPID [id number] 00:00:00 Test Item Value Reference Range Interpretation Comments CHOLESTEROL (test code = 2210) 299 MG/DL TRIGLYCERIDES (test code = 2232) 1161 MG/DL HDL CHOLESTEROL (test code = 40 MG/DL 2220) CALC LDL CHOL (test code = 2237) (NOTE) MG/DL RISK RATIO LDL/HDL (test code = (NOTE) RATIO 2238) LIPID [id number] 00:00:00 Test Item Value Reference Range Interpretation Comments CHOLESTEROL (test code = 2210) 299 MG/DL TRIGLYCERIDES (test code = 2232) 1161 MG/DL HDL CHOLESTEROL (test code = 40 MG/DL 2220) CALC LDL CHOL (test code = 2237) (NOTE) MG/DL RISK RATIO LDL/HDL (test code = (NOTE) RATIO 2238) COMPREHENSIVE METABOLIC [id number] 00:00:00 Test Item Value Reference Range Interpretation Comments GLUCOSE (test code = 2217) 359 MG/DL BUN (test code = 2208) 8 MG/DL CREATININE (test code = 2214) 0.44 MG/DL eGFR AMER. (test code 144 ML/MIN/1.73 = 17907) eGFR NON- AMER. (test 125 ML/MIN/1.73 code = 56718) CALC BUN/CREAT (test code = 18 RATIO 2235) SODIUM (test code = 2231) 133 MEQ/L POTASSIUM (test code = 2228) 4.0 MEQ/L CHLORIDE (test code = 2215) 94 MEQ/L CARBON DIOXIDE (test code = 25 MEQ/L 220) CALCIUM (test code = 2209) 9.7 MG/DL PROTEIN, TOTAL (test code = 7.2 G/DL 2228) ALBUMIN (test code = 2201) 4.4 G/DL CALC GLOBULIN (test code = 2.8 G/DL 2240) CALC A/G RATIO (test code = 1.6 RATIO 2234) BILIRUBIN, TOTAL (test code = 0.4 MG/DL 2206) ALKALINE PHOSPHATASE (test 169 U/L code = 2204) AST (test code = 2218) 18 U/L ALT (test code = 2219) 31 U/L COMPREHENSIVE METABOLIC [id number] 00:00:00 Test Item Value Reference Range Interpretation Comments GLUCOSE (test code = 2217) 359 MG/DL BUN (test code = 2208) 8 MG/DL CREATININE (test code = 2214) 0.44 MG/DL eGFR AMER. (test code 144 ML/MIN/1.73 = 87887) eGFR NON- AMER. (test 125 ML/MIN/1.73 code = 67177) CALC BUN/CREAT (test code = 18 RATIO 2235) SODIUM (test code = 2231) 133 MEQ/L POTASSIUM (test code = 2228) 4.0 MEQ/L CHLORIDE (test code = 2215) 94 MEQ/L CARBON DIOXIDE (test code = 25 MEQ/L 2205) CALCIUM (test code = 2209) 9.7 MG/DL PROTEIN, TOTAL (test code = 7.2 G/DL 2228) ALBUMIN (test code = 2201) 4.4 G/DL CALC GLOBULIN (test code = 2.8 G/DL 2240) CALC A/G RATIO (test code = 1.6 RATIO 2234) BILIRUBIN, TOTAL (test code = 0.4 MG/DL 7) ALKALINE PHOSPHATASE (test 169 U/L code = 2204) AST (test code = 2218) 18 U/L ALT (test code = 2219) 31 U/L MICROALBUMIN/CREATININE, RANDOM AND [id number] 00:00:00 Test Item Value Reference Range Interpretation Comments CREATININE, URINE, CONC. (test 17.1 MG/DL code = 2072) ALBUMIN, URINE, RANDOM (test code 2.1 MG/DL = 73266) CALC ALBUMIN/CREAT, RND (test code 123 MG/G = 22739) MICROALBUMIN/CREATININE, RANDOM AND [id number] 00:00:00 Test Item Value Reference Range Interpretation Comments CREATININE, URINE, CONC. (test 17.1 MG/DL code = 2072) ALBUMIN, URINE, RANDOM (test code 2.1 MG/DL = 73032) CALC ALBUMIN/CREAT, RND (test code 123 MG/G = 43396) COMPREHENSIVE METABOLIC [id number] 00:00:00 Test Item Value Reference Range Interpretation Comments GLUCOSE (test code = 2217) 302 MG/DL BUN (test code = 2208) 9 MG/DL CREATININE (test code = 2214) 0.55 MG/DL eGFR AMER. (test code 135 ML/MIN/1.73 = 57975) eGFR NON- AMER. (test 117 ML/MIN/1.73 code = 81442) CALC BUN/CREAT (test code = 16 RATIO 2235) SODIUM (test code = 2231) 138 MEQ/L POTASSIUM (test code = 2228) 4.2 MEQ/L CHLORIDE (test code = 2215) 100 MEQ/L CARBON DIOXIDE (test code = 24 MEQ/L 2206) CALCIUM (test code = 2209) 9.8 MG/DL PROTEIN, TOTAL (test code = 7.5 G/DL 222) ALBUMIN (test code = 2201) 4.6 G/DL CALC GLOBULIN (test code = 2.9 G/DL 2240) CALC A/G RATIO (test code = 1.6 RATIO 2234) BILIRUBIN, TOTAL (test code = 0.8 MG/DL 2206) ALKALINE PHOSPHATASE (test 105 U/L code = 2204) AST (test code = 2218) 22 U/L ALT (test code = 2219) 39 U/L COMPREHENSIVE METABOLIC [id number] 00:00:00 Test Item Value Reference Range Interpretation Comments GLUCOSE (test code = 2217) 302 MG/DL BUN (test code = 2208) 9 MG/DL CREATININE (test code = 2214) 0.55 MG/DL eGFR AMER. (test code 135 ML/MIN/1.73 = 41290) eGFR NON- AMER. (test 117 ML/MIN/1.73 code = 64676) CALC BUN/CREAT (test code = 16 RATIO 2235) SODIUM (test code = 2231) 138 MEQ/L POTASSIUM (test code = 2228) 4.2 MEQ/L CHLORIDE (test code = 2215) 100 MEQ/L CARBON DIOXIDE (test code = 24 MEQ/L 2205) CALCIUM (test code = 2209) 9.8 MG/DL PROTEIN, TOTAL (test code = 7.5 G/DL 2228) ALBUMIN (test code = 2201) 4.6 G/DL CALC GLOBULIN (test code = 2.9 G/DL 2239) CALC A/G RATIO (test code = 1.6 RATIO 4) BILIRUBIN, TOTAL (test code = 0.8 MG/DL 2206) ALKALINE PHOSPHATASE (test 105 U/L code = 2204) AST (test code = 2218) 22 U/L ALT (test code = 2219) 39 U/L LIPID [id number] 00:00:00 Test Item Value Reference Range Interpretation Comments CHOLESTEROL (test code = 2210) 214 MG/DL TRIGLYCERIDES (test code = 2232) 581 MG/DL HDL CHOLESTEROL (test code = 38 MG/DL 2220) CALC LDL CHOL (test code = 2237) (NOTE) MG/DL RISK RATIO LDL/HDL (test code = (NOTE) RATIO 2238) LIPID [id number] 00:00:00 Test Item Value Reference Range Interpretation Comments CHOLESTEROL (test code = 2210) 214 MG/DL TRIGLYCERIDES (test code = 2232) 581 MG/DL HDL CHOLESTEROL (test code = 38 MG/DL 2220) CALC LDL CHOL (test code = 2237) (NOTE) MG/DL RISK RATIO LDL/HDL (test code = (NOTE) RATIO 2238) HEMOGLOBIN [id number] 00:00:00 Test Item Value Reference Range Interpretation Comments HEMOGLOBIN A1c (test code = 59458) 12.4 % HEMOGLOBIN [id number] 00:00:00 Test Item Value Reference Range Interpretation Comments HEMOGLOBIN A1c (test code = 72389) 12.4 % HEMOGLOBIN [id number] 00:00:00 Test Item Value Reference Range Interpretation Comments HEMOGLOBIN A1c (test code = 28472) 12.4 % SARS-CoV-2 (COVID-19) by RT-PCR (HIGH RISK)2019-12-26 00:00:00 Test Item Value Reference Range Interpretation Comments SARS-CoV-2 INTERPRETATION (test NEGATIVE code = 53098) SOURCE (test code = 35955) NOT SPECIFIED SARS-CoV-2 (COVID-19) by RT-PCR (HIGH RISK)2019-12-26 00:00:00 Test Item Value Reference Range Interpretation Comments SARS-CoV-2 INTERPRETATION (test NEGATIVE code = 00218) SOURCE (test code = 59652) NOT SPECIFIED HEMOGLOBIN A1c [ADDED]2019-03-02 00:00:00 Test Item Value Reference Range Interpretation Comments HEMOGLOBIN A1c (test code = 63641) 7.1 % HEMOGLOBIN A1c [ADDED]2019-03-02 00:00:00 Test Item Value Reference Range Interpretation Comments HEMOGLOBIN A1c (test code = 31718) 7.1 % HEMOGLOBIN A1c [ADDED]2019-03-02 00:00:00 Test Item Value Reference Range Interpretation Comments HEMOGLOBIN A1c (test code = 15294) 7.1 % COMPREHENSIVE METABOLIC PANEL [ADDED]2019-03-02 00:00:00 Test Item Value Reference Range Interpretation Comments GLUCOSE (test code = 2217) 132 MG/DL BUN (test code = 2208) 9 MG/DL CREATININE (test code = 2214) 0.56 MG/DL eGFR AMER. (test code 135 ML/MIN/1.73 = 68632) eGFR NON- AMER. (test 117 ML/MIN/1.73 code = 19151) CALC BUN/CREAT (test code = 16 RATIO 2235) SODIUM (test code = 2231) 142 MEQ/L POTASSIUM (test code = 2228) 4.1 MEQ/L CHLORIDE (test code = 2215) 101 MEQ/L CARBON DIOXIDE (test code = 28 MEQ/L 2205) CALCIUM (test code = 2209) 9.5 MG/DL PROTEIN, TOTAL (test code = 7.3 G/DL 2228) ALBUMIN (test code = 2201) 4.3 G/DL CALC GLOBULIN (test code = 3.0 G/DL 2239) CALC A/G RATIO (test code = 1.4 RATIO 2233) BILIRUBIN, TOTAL (test code = 0.3 MG/DL 2206) ALKALINE PHOSPHATASE (test 77 U/L code = 2204) AST (test code = 2218) 19 U/L ALT (test code = 2219) 17 U/L COMPREHENSIVE METABOLIC PANEL [ADDED]2019-03-02 00:00:00 Test Item Value Reference Range Interpretation Comments GLUCOSE (test code = 2217) 132 MG/DL BUN (test code = 2208) 9 MG/DL CREATININE (test code = 2214) 0.56 MG/DL eGFR AMER. (test code 135 ML/MIN/1.73 = 98792) eGFR NON- AMER. (test 117 ML/MIN/1.73 code = 29254) CALC BUN/CREAT (test code = 16 RATIO 2235) SODIUM (test code = 2231) 142 MEQ/L POTASSIUM (test code = 2228) 4.1 MEQ/L CHLORIDE (test code = 2215) 101 MEQ/L CARBON DIOXIDE (test code = 28 MEQ/L 220) CALCIUM (test code = 2209) 9.5 MG/DL PROTEIN, TOTAL (test code = 7.3 G/DL 2228) ALBUMIN (test code = 2201) 4.3 G/DL CALC GLOBULIN (test code = 3.0 G/DL 2240) CALC A/G RATIO (test code = 1.4 RATIO 2234) BILIRUBIN, TOTAL (test code = 0.3 MG/DL 2206) ALKALINE PHOSPHATASE (test 77 U/L code = 2204) AST (test code = 2218) 19 U/L ALT (test code = 2219) 17 U/L LIPID PANEL [ADDED]2019-03-02 00:00:00 Test Item Value Reference Range Interpretation Comments CHOLESTEROL (test code = 2210) 206 MG/DL TRIGLYCERIDES (test code = 2232) 340 MG/DL HDL CHOLESTEROL (test code = 2220) 36 MG/DL CALC LDL CHOL (test code = 2237) 102 MG/DL RISK RATIO LDL/HDL (test code = 2.83 RATIO 2238) LIPID PANEL [ADDED]2019-03-02 00:00:00 Test Item Value Reference Range Interpretation Comments CHOLESTEROL (test code = 2210) 206 MG/DL TRIGLYCERIDES (test code = 2232) 340 MG/DL HDL CHOLESTEROL (test code = 2220) 36 MG/DL CALC LDL CHOL (test code = 2237) 102 MG/DL RISK RATIO LDL/HDL (test code = 2.83 RATIO 2238) ALBUMIN/CREATININE RATIO, RANDOM URINE [ADDED]2019-03-02 00:00:00 Test Item Value Reference Range Interpretation Comments CREATININE, URINE, CONC. (test 182.9 MG/DL code = 2072) ALBUMIN, URINE, RANDOM (test code 4.6 MG/DL = 91787) CALC ALBUMIN/CREAT, RND (test 25 MG/G code = 91049) ALBUMIN/CREATININE RATIO, RANDOM URINE [ADDED]2019-03-02 00:00:00 Test Item Value Reference Range Interpretation Comments CREATININE, URINE, CONC. (test 182.9 MG/DL code = 2072) ALBUMIN, URINE, RANDOM (test code 4.6 MG/DL = 61142) CALC ALBUMIN/CREAT, RND (test 25 MG/G code = 76438) HEMOGLOBIN [id number] 00:00:00 Test Item Value Reference Range Interpretation Comments HEMOGLOBIN A1c (test code = 56121) 8.1 % HEMOGLOBIN [id number] 00:00:00 Test Item Value Reference Range Interpretation Comments HEMOGLOBIN A1c (test code = 81446) 8.1 % HEMOGLOBIN [id number] 00:00:00 Test Item Value Reference Range Interpretation Comments HEMOGLOBIN A1c (test code = 17201) 8.1 % HEMOGLOBIN [id number] 00:00:00 Test Item Value Reference Range Interpretation Comments HEMOGLOBIN A1c (test code = 10868) 10.3 % HEMOGLOBIN [id number] 00:00:00 Test Item Value Reference Range Interpretation Comments HEMOGLOBIN A1c (test code = 43788) 10.3 % HEMOGLOBIN [id number] 00:00:00 Test Item Value Reference Range Interpretation Comments HEMOGLOBIN A1c (test code = 94229) 10.3 % LIPID [id number] 00:00:00 Test Item Value Reference Range Interpretation Comments CHOLESTEROL (test code = 2210) 229 MG/DL TRIGLYCERIDES (test code = 2232) 439 MG/DL HDL CHOLESTEROL (test code = 38 MG/DL 2220) CALC LDL CHOL (test code = 2237) NOTE MG/DL RISK RATIO LDL/HDL (test code = (NOTE) RATIO 2238) LIPID [id number] 00:00:00 Test Item Value Reference Range Interpretation Comments CHOLESTEROL (test code = 2210) 229 MG/DL TRIGLYCERIDES (test code = 2232) 439 MG/DL HDL CHOLESTEROL (test code = 38 MG/DL 2220) CALC LDL CHOL (test code = 2237) NOTE MG/DL RISK RATIO LDL/HDL (test code = (NOTE) RATIO 2238) HEMOGLOBIN [id number] 00:00:00 Test Item Value Reference Range Interpretation Comments HEMOGLOBIN A1c (test code = 57456) 12.0 % HEMOGLOBIN [id number] 00:00:00 Test Item Value Reference Range Interpretation Comments HEMOGLOBIN A1c (test code = 29783) 12.0 % HEMOGLOBIN [id number] 00:00:00 Test Item Value Reference Range Interpretation Comments HEMOGLOBIN A1c (test code = 82556) 12.0 % LIZBETH AUTOIMMUNE [id number] 00:00:00 Test Item Value Reference Range Interpretation Comments ANTI-NUCLEAR ANTIBODIES (test code NEGATIVE = 3506) SJOGREN'S SS-A ANTIBODY (test code <0.2 AI = 62467) SJOGREN'S SS-B ANTIBODY (test code <0.2 AI = 00538) GONZALEZ (Sm) ANTIBODY (test code = <0.2 AI 32773) CONCRETE PLACEMENT EQUIPMENT OPERATOR ANTIBODY (test code = 00967) 0.5 AI SCL-70 ANTIBODY (test code = 4606) <0.2 AI Terri-1 ANTIBODY (test code = 4680) <0.2 AI CENTROMERE B ANTIBODY (test code = <0.2 AI 4630) RIBOSOMAL P ANTIBODY (test code = <0.2 AI 59731) CHROMATIN ANTIBODY (test code = <0.2 AI 36104) THYROID PEROXIDASE AB (test code = 1 IU/ML 99940) COMPLEMENT C3 (test code = 3509) 189 MG/DL COMPLEMENT C4 (test code = 3510) 44 MG/DL RHEUMATOID FACTOR, QUANT (test code <10 IU/ML = 3502) dsDNA ANTIBODY (test code = 4287) 6.0 IU/ML LIZBETH AUTOIMMUNE [id number] 00:00:00 Test Item Value Reference Range Interpretation Comments ANTI-NUCLEAR ANTIBODIES (test code NEGATIVE = 3506) SJOGREN'S SS-A ANTIBODY (test code <0.2 AI = 01256) SJOGREN'S SS-B ANTIBODY (test code <0.2 AI = 49110) GONZALEZ (Sm) ANTIBODY (test code = <0.2 AI 14145) CONCRETE PLACEMENT EQUIPMENT OPERATOR ANTIBODY (test code = 96263) 0.5 AI SCL-70 ANTIBODY (test code = 4606) <0.2 AI Terri-1 ANTIBODY (test code = 4680) <0.2 AI CENTROMERE B ANTIBODY (test code = <0.2 AI 4630) RIBOSOMAL P ANTIBODY (test code = <0.2 AI 03561) CHROMATIN ANTIBODY (test code = <0.2 AI 48749) THYROID PEROXIDASE AB (test code = 1 IU/ML 25445) COMPLEMENT C3 (test code = 3509) 189 MG/DL COMPLEMENT C4 (test code = 3510) 44 MG/DL RHEUMATOID FACTOR, QUANT (test code <10 IU/ML = 3502) dsDNA ANTIBODY (test code = 4287) 6.0 IU/ML C-REACTIVE [id number] 00:00:00 Test Item Value Reference Range Interpretation Comments C-REACTIVE PROTEIN (test code = 0.6 MG/DL 3513) C-REACTIVE [id number] 00:00:00 Test Item Value Reference Range Interpretation Comments C-REACTIVE PROTEIN (test code = 0.6 MG/DL 3513) SEDIMENTATION [id number] 00:00:00 Test Item Value Reference Range Interpretation Comments SEDIMENTATION RATE (test code = 28 MM/HOUR 1017) SEDIMENTATION [id number] 00:00:00 Test Item Value Reference Range Interpretation Comments SEDIMENTATION RATE (test code = 28 MM/HOUR 1017) VITAMIN D, 25 [id number] 00:00:00 Test Item Value Reference Range Interpretation Comments VITAMIN D, 25 OH (test code = 4958) 15 NG/ML VITAMIN D, 25 [id number] 00:00:00 Test Item Value Reference Range Interpretation Comments VITAMIN D, 25 OH (test code = 4958) 15 NG/ML HEMOGLOBIN [id number] 00:00:00 Test Item Value Reference Range Interpretation Comments HEMOGLOBIN A1c (test code = 33696) 7.5 % HEMOGLOBIN [id number] 00:00:00 Test Item Value Reference Range Interpretation Comments HEMOGLOBIN A1c (test code = 32566) 7.5 % HEMOGLOBIN [id number] 00:00:00 Test Item Value Reference Range Interpretation Comments HEMOGLOBIN A1c (test code = 08156) 7.5 % VITAMIN B 12 AND FOLIC [id number] 00:00:00 Test Item Value Reference Range Interpretation Comments VITAMIN B-12 (test code = 2840) 485 PG/ML FOLIC ACID (test code = 2695) 14.6 UG/L VITAMIN B 12 AND FOLIC [id number] 00:00:00 Test Item Value Reference Range Interpretation Comments VITAMIN B-12 (test code = 2840) 485 PG/ML FOLIC ACID (test code = 2695) 14.6 UG/L [id number] 00:00:00 Test Item Value Reference Range Interpretation Comments FERRITIN (test code = 2075) 26 NG/ML [id number] 00:00:00 Test Item Value Reference Range Interpretation Comments FERRITIN (test code = 5) 26 NG/ML IRON BINDING CAPACITY AND IRON AND % [id number] 00:00:00 Test Item Value Reference Range Interpretation Comments IRON, SERUM (test code = 2222) 77 UG/DL UNSATURATED IBC (test code = 37415) 273 UG/DL CALC TOTAL IBC (test code = 7) 350 UG/DL CALC % IRON SAT (test code = 9) 22 % IRON BINDING CAPACITY AND IRON AND % [id number] 00:00:00 Test Item Value Reference Range Interpretation Comments IRON, SERUM (test code = 2) 77 UG/DL UNSATURATED IBC (test code = 88780) 273 UG/DL CALC TOTAL IBC (test code = 7) 350 UG/DL CALC % IRON SAT (test code = 9) 22 % RETICULOCYTE [id number] 00:00:00 Test Item Value Reference Range Interpretation Comments RETICULOCYTE COUNT (test code = 1018) 1.1 % RETICULOCYTE [id number] 00:00:00 Test Item Value Reference Range Interpretation Comments RETICULOCYTE COUNT (test code = 1018) 1.1 % COMPREHENSIVE METABOLIC [id number] 00:00:00 Test Item Value Reference Range Interpretation Comments GLUCOSE (test code = 2217) 136 MG/DL BUN (test code = 2208) 11 MG/DL CREATININE (test code = 2214) 0.46 MG/DL eGFR AMER. (test code 145 ML/MIN/1.73 = 97319) eGFR NON- AMER. (test 125 ML/MIN/1.73 code = 34528) CALC BUN/CREAT (test code = 24 RATIO 2235) SODIUM (test code = 2231) 137 MEQ/L POTASSIUM (test code = 2228) 4.4 MEQ/L CHLORIDE (test code = 2215) 100 MEQ/L CARBON DIOXIDE (test code = 24 MEQ/L 220) CALCIUM (test code = 2209) 9.3 MG/DL PROTEIN, TOTAL (test code = 7.0 G/DL 222) ALBUMIN (test code = 2201) 4.4 G/DL CALC GLOBULIN (test code = 2.6 G/DL 2240) CALC A/G RATIO (test code = 1.7 RATIO 2234) BILIRUBIN, TOTAL (test code = 0.3 MG/DL 2206) ALKALINE PHOSPHATASE (test 73 U/L code = 2204) AST (test code = 2218) 21 U/L ALT (test code = 2219) 34 U/L COMPREHENSIVE METABOLIC [id number] 00:00:00 Test Item Value Reference Range Interpretation Comments GLUCOSE (test code = 2217) 136 MG/DL BUN (test code = 2208) 11 MG/DL CREATININE (test code = 2214) 0.46 MG/DL eGFR AMER. (test code 145 ML/MIN/1.73 = 22819) eGFR NON- AMER. (test 125 ML/MIN/1.73 code = 24187) CALC BUN/CREAT (test code = 24 RATIO 2235) SODIUM (test code = 2231) 137 MEQ/L POTASSIUM (test code = 2228) 4.4 MEQ/L CHLORIDE (test code = 2215) 100 MEQ/L CARBON DIOXIDE (test code = 24 MEQ/L 2205) CALCIUM (test code = 2209) 9.3 MG/DL PROTEIN, TOTAL (test code = 7.0 G/DL 2229) ALBUMIN (test code = 2201) 4.4 G/DL CALC GLOBULIN (test code = 2.6 G/DL 2240) CALC A/G RATIO (test code = 1.7 RATIO 2234) BILIRUBIN, TOTAL (test code = 0.3 MG/DL 2206) ALKALINE PHOSPHATASE (test 73 U/L code = 2204) AST (test code = 2218) 21 U/L ALT (test code = 2219) 34 U/L LIPID [id number] 00:00:00 Test Item Value Reference Range Interpretation Comments CHOLESTEROL (test code = 2210) 194 MG/DL TRIGLYCERIDES (test code = 2232) 292 MG/DL HDL CHOLESTEROL (test code = 2220) 36 MG/DL CALC LDL CHOL (test code = 2237) 100 MG/DL RISK RATIO LDL/HDL (test code = 2.77 RATIO 2238) LIPID [id number] 00:00:00 Test Item Value Reference Range Interpretation Comments CHOLESTEROL (test code = 2210) 194 MG/DL TRIGLYCERIDES (test code = 2232) 292 MG/DL HDL CHOLESTEROL (test code = 2220) 36 MG/DL CALC LDL CHOL (test code = 2237) 100 MG/DL RISK RATIO LDL/HDL (test code = 2.77 RATIO 2238) CBC W/AUTO [id number] 00:00:00 Test Item Value Reference Range Interpretation Comments WBC (test code = 1001) 8.8 K/UL RBC (test code = 1002) 4.73 M/UL HEMOGLOBIN (test code = 1003) 12.0 G/DL HEMATOCRIT (test code = 1004) 35.4 % MCV (test code = 1005) 74.8 fL MCH (test code = 1006) 25.4 PG MCHC (test code = 1007) 33.9 G/DL RDW (test code = 1038) 19.3 % NEUTROPHILS (test code = 1008) 55.9 % LYMPHOCYTES (test code = 1010) 36.1 % MONOCYTES (test code = 1011) 5.0 % EOSINOPHILS (test code = 1012) 2.7 % BASOPHILS (test code = 1013) 0.3 % PLATELET COUNT (test code = 1015) 268 K/UL CBC W/AUTO [id number] 00:00:00 Test Item Value Reference Range Interpretation Comments WBC (test code = 1001) 8.8 K/UL RBC (test code = 1002) 4.73 M/UL HEMOGLOBIN (test code = 1003) 12.0 G/DL HEMATOCRIT (test code = 1004) 35.4 % MCV (test code = 1005) 74.8 fL MCH (test code = 1006) 25.4 PG MCHC (test code = 1007) 33.9 G/DL RDW (test code = 1038) 19.3 % NEUTROPHILS (test code = 1008) 55.9 % LYMPHOCYTES (test code = 1010) 36.1 % MONOCYTES (test code = 1011) 5.0 % EOSINOPHILS (test code = 1012) 2.7 % BASOPHILS (test code = 1013) 0.3 % PLATELET COUNT (test code = 1015) 268 K/UL CBC W/AUTO [id number] 00:00:00 Test Item Value Reference Range Interpretation Comments WBC (test code = 1001) 8.8 K/UL RBC (test code = 1002) 4.73 M/UL HEMOGLOBIN (test code = 1003) 12.0 G/DL HEMATOCRIT (test code = 1004) 35.4 % MCV (test code = 1005) 74.8 fL MCH (test code = 1006) 25.4 PG MCHC (test code = 1007) 33.9 G/DL RDW (test code = 1038) 19.3 % NEUTROPHILS (test code = 1008) 55.9 % LYMPHOCYTES (test code = 1010) 36.1 % MONOCYTES (test code = 1011) 5.0 % EOSINOPHILS (test code = 1012) 2.7 % BASOPHILS (test code = 1013) 0.3 % PLATELET COUNT (test code = 1015) 268 K/UL HEMOGLOBIN [id number] 00:00:00 Test Item Value Reference Range Interpretation Comments HEMOGLOBIN A1c (test code = 68357) 6.5 % HEMOGLOBIN [id number] 00:00:00 Test Item Value Reference Range Interpretation Comments HEMOGLOBIN A1c (test code = 01790) 6.5 % HEMOGLOBIN [id number] 00:00:00 Test Item Value Reference Range Interpretation Comments HEMOGLOBIN A1c (test code = 06350) 6.5 % SEDIMENTATION [id number] 00:00:00 Test Item Value Reference Range Interpretation Comments SEDIMENTATION RATE (test code = 16 MM/HOUR 1017) SEDIMENTATION [id number] 00:00:00 Test Item Value Reference Range Interpretation Comments SEDIMENTATION RATE (test code = 16 MM/HOUR 1017) C-REACTIVE [id number] 00:00:00 Test Item Value Reference Range Interpretation Comments C-REACTIVE PROTEIN (test code = 0.5 MG/DL 3513) C-REACTIVE [id number] 00:00:00 Test Item Value Reference Range Interpretation Comments C-REACTIVE PROTEIN (test code = 0.5 MG/DL 3513) MICROALBUMIN/CREATININE, RANDOM AND [id number] 00:00:00 Test Item Value Reference Range Interpretation Comments CREATININE, URINE, CONC. (test 158.3 MG/DL code = 2072) ALBUMIN, URINE, RANDOM (test code 3.5 MG/DL = 80121) CALC ALBUMIN/CREAT, RND (test 22 MG/G code = 03894) MICROALBUMIN/CREATININE, RANDOM AND [id number] 00:00:00 Test Item Value Reference Range Interpretation Comments CREATININE, URINE, CONC. (test 158.3 MG/DL code = 2072) ALBUMIN, URINE, RANDOM (test code 3.5 MG/DL = 70716) CALC ALBUMIN/CREAT, RND (test 22 MG/G code = 02405) CBC W/AUTO [id number] 00:00:00 Test Item Value Reference Range Interpretation Comments WBC (test code = 1001) 10.2 K/UL RBC (test code = 1002) 3.88 M/UL HEMOGLOBIN (test code = 1003) 10.9 G/DL HEMATOCRIT (test code = 1004) 31.9 % MCV (test code = 1005) 82.2 fL MCH (test code = 1006) 28.1 PG MCHC (test code = 1007) 34.2 G/DL RDW (test code = 1038) 12.0 % NEUTROPHILS (test code = 1008) 73.9 % LYMPHOCYTES (test code = 1010) 19.9 % MONOCYTES (test code = 1011) 5.0 % EOSINOPHILS (test code = 1012) 1.0 % BASOPHILS (test code = 1013) 0.2 % PLATELET COUNT (test code = 1015) 258 K/UL CBC W/AUTO [id number] 00:00:00 Test Item Value Reference Range Interpretation Comments WBC (test code = 1001) 10.2 K/UL RBC (test code = 1002) 3.88 M/UL HEMOGLOBIN (test code = 1003) 10.9 G/DL HEMATOCRIT (test code = 1004) 31.9 % MCV (test code = 1005) 82.2 fL MCH (test code = 1006) 28.1 PG MCHC (test code = 1007) 34.2 G/DL RDW (test code = 1038) 12.0 % NEUTROPHILS (test code = 1008) 73.9 % LYMPHOCYTES (test code = 1010) 19.9 % MONOCYTES (test code = 1011) 5.0 % EOSINOPHILS (test code = 1012) 1.0 % BASOPHILS (test code = 1013) 0.2 % PLATELET COUNT (test code = 1015) 258 K/UL CBC W/AUTO [id number] 00:00:00 Test Item Value Reference Range Interpretation Comments WBC (test code = 1001) 10.2 K/UL RBC (test code = 1002) 3.88 M/UL HEMOGLOBIN (test code = 1003) 10.9 G/DL HEMATOCRIT (test code = 1004) 31.9 % MCV (test code = 1005) 82.2 fL MCH (test code = 1006) 28.1 PG MCHC (test code = 1007) 34.2 G/DL RDW (test code = 1038) 12.0 % NEUTROPHILS (test code = 1008) 73.9 % LYMPHOCYTES (test code = 1010) 19.9 % MONOCYTES (test code = 1011) 5.0 % EOSINOPHILS (test code = 1012) 1.0 % BASOPHILS (test code = 1013) 0.2 % PLATELET COUNT (test code = 1015) 258 K/UL SEDIMENTATION [id number] 00:00:00 Test Item Value Reference Range Interpretation Comments SEDIMENTATION RATE (test code = 37 MM/HOUR 1017) SEDIMENTATION [id number] 00:00:00 Test Item Value Reference Range Interpretation Comments SEDIMENTATION RATE (test code = 37 MM/HOUR 1017) C-REACTIVE [id number] 00:00:00 Test Item Value Reference Range Interpretation Comments C-REACTIVE PROTEIN (test code = 0.8 MG/DL 3513) C-REACTIVE [id number] 00:00:00 Test Item Value Reference Range Interpretation Comments C-REACTIVE PROTEIN (test code = 0.8 MG/DL 3513) LIZBETH (ANTI-NUCLEAR AB) WITH REFLEX [id number] 00:00:00 Test Item Value Reference Range Interpretation Comments ANTI-NUCLEAR ANTIBODIES (test code = NEGATIVE 3506) LIZBETH (ANTI-NUCLEAR AB) WITH REFLEX [id number] 00:00:00 Test Item Value Reference Range Interpretation Comments ANTI-NUCLEAR ANTIBODIES (test code = NEGATIVE 3506) RHEUMATOID FACTOR, [id number] 00:00:00 Test Item Value Reference Range Interpretation Comments RHEUMATOID FACTOR, QUANT (test code <10 IU/ML = 3502) RHEUMATOID FACTOR, [id number] 00:00:00 Test Item Value Reference Range Interpretation Comments RHEUMATOID FACTOR, QUANT (test code <10 IU/ML = 3502) RHEUMATOID FACTOR, [id number] 00:00:00 Test Item Value Reference Range Interpretation Comments RHEUMATOID FACTOR, QUANT (test code <10 IU/ML = 3502) HEMOGLOBIN [id number] 00:00:00 Test Item Value Reference Range Interpretation Comments HEMOGLOBIN A1c (test code = 47597) 10.0 % HEMOGLOBIN [id number] 00:00:00 Test Item Value Reference Range Interpretation Comments HEMOGLOBIN A1c (test code = 28002) 10.0 % HEMOGLOBIN [id number] 00:00:00 Test Item Value Reference Range Interpretation Comments HEMOGLOBIN A1c (test code = 29588) 10.0 % LIPID [id number] 00:00:00 Test Item Value Reference Range Interpretation Comments CHOLESTEROL (test code = 2210) 231 MG/DL TRIGLYCERIDES (test code = 2232) 324 MG/DL HDL CHOLESTEROL (test code = 2220) 43 MG/DL CALC LDL CHOL (test code = 2237) 123 MG/DL RISK RATIO LDL/HDL (test code = 2.87 RATIO 2238) LIPID [id number] 00:00:00 Test Item Value Reference Range Interpretation Comments CHOLESTEROL (test code = 2210) 231 MG/DL TRIGLYCERIDES (test code = 2232) 324 MG/DL HDL CHOLESTEROL (test code = 2220) 43 MG/DL CALC LDL CHOL (test code = 2237) 123 MG/DL RISK RATIO LDL/HDL (test code = 2.87 RATIO 2238) COMPREHENSIVE METABOLIC [id number] 00:00:00 Test Item Value Reference Range Interpretation Comments GLUCOSE (test code = 2217) 282 MG/DL BUN (test code = 2208) 8 MG/DL CREATININE (test code = 2214) 0.44 MG/DL eGFR AMER. (test code 148 ML/MIN/1.73 = 93644) eGFR NON- AMER. (test 128 ML/MIN/1.73 code = 78716) CALC BUN/CREAT (test code = 18 RATIO 2235) SODIUM (test code = 2231) 135 MEQ/L POTASSIUM (test code = 2228) 4.0 MEQ/L CHLORIDE (test code = 2215) 98 MEQ/L CARBON DIOXIDE (test code = 24 MEQ/L 2206) CALCIUM (test code = 2209) 9.7 MG/DL PROTEIN, TOTAL (test code = 7.4 G/DL 222) ALBUMIN (test code = 2201) 4.5 G/DL CALC GLOBULIN (test code = 2.9 G/DL 2240) CALC A/G RATIO (test code = 1.6 RATIO 2234) BILIRUBIN, TOTAL (test code = 0.6 MG/DL 2206) ALKALINE PHOSPHATASE (test 86 U/L code = 2204) AST (test code = 2218) 15 U/L ALT (test code = 2219) 14 U/L COMPREHENSIVE METABOLIC [id number] 00:00:00 Test Item Value Reference Range Interpretation Comments GLUCOSE (test code = 2217) 282 MG/DL BUN (test code = 2208) 8 MG/DL CREATININE (test code = 2214) 0.44 MG/DL eGFR AMER. (test code 148 ML/MIN/1.73 = 35048) eGFR NON- AMER. (test 128 ML/MIN/1.73 code = 64774) CALC BUN/CREAT (test code = 18 RATIO 2235) SODIUM (test code = 2231) 135 MEQ/L POTASSIUM (test code = 2228) 4.0 MEQ/L CHLORIDE (test code = 2215) 98 MEQ/L CARBON DIOXIDE (test code = 24 MEQ/L 2206) CALCIUM (test code = 2209) 9.7 MG/DL PROTEIN, TOTAL (test code = 7.4 G/DL 2228) ALBUMIN (test code = 2201) 4.5 G/DL CALC GLOBULIN (test code = 2.9 G/DL 2240) CALC A/G RATIO (test code = 1.6 RATIO 2234) BILIRUBIN, TOTAL (test code = 0.6 MG/DL 2207) ALKALINE PHOSPHATASE (test 86 U/L code = 2204) AST (test code = 2218) 15 U/L ALT (test code = 2219) 14 U/L HEMOGLOBIN [id number] 00:00:00 Test Item Value Reference Range Interpretation Comments HEMOGLOBIN A1c (test code = 63804) 13.1 % HEMOGLOBIN [id number] 00:00:00 Test Item Value Reference Range Interpretation Comments HEMOGLOBIN A1c (test code = 59157) 13.1 % HEMOGLOBIN [id number] 00:00:00 Test Item Value Reference Range Interpretation Comments HEMOGLOBIN A1c (test code = 32477) 13.1 % MICROALBUMIN, [id number] 00:00:00 Test Item Value Reference Range Interpretation Comments MICROALBUMIN, RANDOM (test code = 0.3 MG/DL 95726) COMPREHENSIVE METABOLIC [id number] 00:00:00 Test Item Value Reference Range Interpretation Comments GLUCOSE (test code = 2217) 451 MG/DL BUN (test code = 2208) 9 MG/DL CREATININE (test code = 2214) 0.51 MG/DL eGFR AMER. (test code 141 ML/MIN/1.73 = 64663) eGFR NON- AMER. (test 122 ML/MIN/1.73 code = 72737) CALC BUN/CREAT (test code = 18 RATIO 2235) SODIUM (test code = 2231) 130 MEQ/L POTASSIUM (test code = 2228) 3.9 MEQ/L CHLORIDE (test code = 2215) 92 MEQ/L CARBON DIOXIDE (test code = 27 MEQ/L 6) CALCIUM (test code = 2209) 9.6 MG/DL PROTEIN, TOTAL (test code = 7.2 G/DL 2228) ALBUMIN (test code = 2201) 4.3 G/DL CALC GLOBULIN (test code = 2.9 G/DL 2240) CALC A/G RATIO (test code = 1.5 RATIO 2234) BILIRUBIN, TOTAL (test code = 0.4 MG/DL 2206) ALKALINE PHOSPHATASE (test 108 U/L code = 2204) AST (test code = 2218) 14 U/L ALT (test code = 2219) 19 U/L MICROALBUMIN, [id number] 00:00:00 Test Item Value Reference Range Interpretation Comments MICROALBUMIN, RANDOM (test code = 0.3 MG/DL 99355) COMPREHENSIVE METABOLIC [id number] 00:00:00 Test Item Value Reference Range Interpretation Comments GLUCOSE (test code = 2217) 451 MG/DL BUN (test code = 2208) 9 MG/DL CREATININE (test code = 2214) 0.51 MG/DL eGFR AMER. (test code 141 ML/MIN/1.73 = 33526) eGFR NON- AMER. (test 122 ML/MIN/1.73 code = 18590) CALC BUN/CREAT (test code = 18 RATIO 2235) SODIUM (test code = 2231) 130 MEQ/L POTASSIUM (test code = 2228) 3.9 MEQ/L CHLORIDE (test code = 2215) 92 MEQ/L CARBON DIOXIDE (test code = 27 MEQ/L 220) CALCIUM (test code = 2209) 9.6 MG/DL PROTEIN, TOTAL (test code = 7.2 G/DL 2228) ALBUMIN (test code = 2201) 4.3 G/DL CALC GLOBULIN (test code = 2.9 G/DL 224) CALC A/G RATIO (test code = 1.5 RATIO 223) BILIRUBIN, TOTAL (test code = 0.4 MG/DL 2206) ALKALINE PHOSPHATASE (test 108 U/L code = 2204) AST (test code = 2218) 14 U/L ALT (test code = 2219) 19 U/L LIPID [id number] 00:00:00 Test Item Value Reference Range Interpretation Comments CHOLESTEROL (test code = 2210) 218 MG/DL TRIGLYCERIDES (test code = 2232) 414 MG/DL HDL CHOLESTEROL (test code = 36 MG/DL 2220) CALC LDL CHOL (test code = 2237) NOTE MG/DL RISK RATIO LDL/HDL (test code = (NOTE) RATIO 2238) LIPID [id number] 00:00:00 Test Item Value Reference Range Interpretation Comments CHOLESTEROL (test code = 2210) 218 MG/DL TRIGLYCERIDES (test code = 2232) 414 MG/DL HDL CHOLESTEROL (test code = 36 MG/DL 2220) CALC LDL CHOL (test code = 2237) NOTE MG/DL RISK RATIO LDL/HDL (test code = (NOTE) RATIO 2238) CBC W/AUTO [id number] 00:00:00 Test Item Value Reference Range Interpretation Comments WBC (test code = 1001) 9.6 K/UL RBC (test code = 1002) 4.63 M/UL HEMOGLOBIN (test code = 1003) 13.8 G/DL HEMATOCRIT (test code = 1004) 41.0 % MCV (test code = 1005) 88.6 fL MCH (test code = 1006) 29.8 PG MCHC (test code = 1007) 33.7 G/DL RDW (test code = 1038) 12.1 % NEUTROPHILS (test code = 1008) 59.2 % LYMPHOCYTES (test code = 1010) 36.7 % MONOCYTES (test code = 1011) 3.1 % EOSINOPHILS (test code = 1012) 0.8 % BASOPHILS (test code = 1013) 0.2 % PLATELET COUNT (test code = 1015) 241 K/UL CBC W/AUTO [id number] 00:00:00 Test Item Value Reference Range Interpretation Comments WBC (test code = 1001) 9.6 K/UL RBC (test code = 1002) 4.63 M/UL HEMOGLOBIN (test code = 1003) 13.8 G/DL HEMATOCRIT (test code = 1004) 41.0 % MCV (test code = 1005) 88.6 fL MCH (test code = 1006) 29.8 PG MCHC (test code = 1007) 33.7 G/DL RDW (test code = 1038) 12.1 % NEUTROPHILS (test code = 1008) 59.2 % LYMPHOCYTES (test code = 1010) 36.7 % MONOCYTES (test code = 1011) 3.1 % EOSINOPHILS (test code = 1012) 0.8 % BASOPHILS (test code = 1013) 0.2 % PLATELET COUNT (test code = 1015) 241 K/UL CBC W/AUTO [id number] 00:00:00 Test Item Value Reference Range Interpretation Comments WBC (test code = 1001) 9.6 K/UL RBC (test code = 1002) 4.63 M/UL HEMOGLOBIN (test code = 1003) 13.8 G/DL HEMATOCRIT (test code = 1004) 41.0 % MCV (test code = 1005) 88.6 fL MCH (test code = 1006) 29.8 PG MCHC (test code = 1007) 33.7 G/DL RDW (test code = 1038) 12.1 % NEUTROPHILS (test code = 1008) 59.2 % LYMPHOCYTES (test code = 1010) 36.7 % MONOCYTES (test code = 1011) 3.1 % EOSINOPHILS (test code = 1012) 0.8 % BASOPHILS (test code = 1013) 0.2 % PLATELET COUNT (test code = 1015) 241 K/UL HEMOGLOBIN [id number] 00:00:00 Test Item Value Reference Range Interpretation Comments HEMOGLOBIN A1c (test code = 18470) 14.8 % HEMOGLOBIN [id number] 00:00:00 Test Item Value Reference Range Interpretation Comments HEMOGLOBIN A1c (test code = 76857) 14.8 % HEMOGLOBIN [id number] 00:00:00 Test Item Value Reference Range Interpretation Comments HEMOGLOBIN A1c (test code = 45291) 14.8 % HEMOGLOBIN [id number] 00:00:00 Test Item Value Reference Range Interpretation Comments HEMOGLOBIN A1c (test code = 39803) 10.4 % HEMOGLOBIN [id number] 00:00:00 Test Item Value Reference Range Interpretation Comments HEMOGLOBIN A1c (test code = 34839) 10.4 % HEMOGLOBIN [id number] 00:00:00 Test Item Value Reference Range Interpretation Comments HEMOGLOBIN A1c (test code = 26832) 10.4 % CBC W/AUTO [id number] 00:00:00 Test Item Value Reference Range Interpretation Comments WBC (test code = 1001) 10.5 K/UL RBC (test code = 1002) 4.60 M/UL HEMOGLOBIN (test code = 1003) 13.9 G/DL HEMATOCRIT (test code = 1004) 40.2 % MCV (test code = 1005) 87.4 fL MCH (test code = 1006) 30.2 PG MCHC (test code = 1007) 34.6 G/DL RDW (test code = 1038) 12.8 % NEUTROPHILS (test code = 1008) 63.4 % LYMPHOCYTES (test code = 1010) 31.1 % MONOCYTES (test code = 1011) 4.0 % EOSINOPHILS (test code = 1012) 1.4 % BASOPHILS (test code = 1013) 0.1 % PLATELET COUNT (test code = 1015) 295 K/UL CBC W/AUTO [id number] 00:00:00 Test Item Value Reference Range Interpretation Comments WBC (test code = 1001) 10.5 K/UL RBC (test code = 1002) 4.60 M/UL HEMOGLOBIN (test code = 1003) 13.9 G/DL HEMATOCRIT (test code = 1004) 40.2 % MCV (test code = 1005) 87.4 fL MCH (test code = 1006) 30.2 PG MCHC (test code = 1007) 34.6 G/DL RDW (test code = 1038) 12.8 % NEUTROPHILS (test code = 1008) 63.4 % LYMPHOCYTES (test code = 1010) 31.1 % MONOCYTES (test code = 1011) 4.0 % EOSINOPHILS (test code = 1012) 1.4 % BASOPHILS (test code = 1013) 0.1 % PLATELET COUNT (test code = 1015) 295 K/UL CBC W/AUTO [id number] 00:00:00 Test Item Value Reference Range Interpretation Comments WBC (test code = 1001) 10.5 K/UL RBC (test code = 1002) 4.60 M/UL HEMOGLOBIN (test code = 1003) 13.9 G/DL HEMATOCRIT (test code = 1004) 40.2 % MCV (test code = 1005) 87.4 fL MCH (test code = 1006) 30.2 PG MCHC (test code = 1007) 34.6 G/DL RDW (test code = 1038) 12.8 % NEUTROPHILS (test code = 1008) 63.4 % LYMPHOCYTES (test code = 1010) 31.1 % MONOCYTES (test code = 1011) 4.0 % EOSINOPHILS (test code = 1012) 1.4 % BASOPHILS (test code = 1013) 0.1 % PLATELET COUNT (test code = 1015) 295 K/UL COMPREHENSIVE METABOLIC [id number] 00:00:00 Test Item Value Reference Range Interpretation Comments GLUCOSE (test code = 2217) 343 MG/DL BUN (test code = 2208) 9 MG/DL CREATININE (test code = 2214) 0.56 MG/DL eGFR AMER. (test code 138 ML/MIN/1.73 = 03659) eGFR NON- AMER. (test 119 ML/MIN/1.73 code = 30984) CALC BUN/CREAT (test code = 16 RATIO 2235) SODIUM (test code = 2231) 134 MEQ/L POTASSIUM (test code = 2228) 4.1 MEQ/L CHLORIDE (test code = 2215) 93 MEQ/L CARBON DIOXIDE (test code = 21 MEQ/L 220) CALCIUM (test code = 2209) 9.4 MG/DL PROTEIN, TOTAL (test code = 7.1 G/DL 2228) ALBUMIN (test code = 2201) 4.4 G/DL CALC GLOBULIN (test code = 2.7 G/DL 2240) CALC A/G RATIO (test code = 1.6 RATIO 2234) BILIRUBIN, TOTAL (test code = 0.7 MG/DL 220) ALKALINE PHOSPHATASE (test 66 U/L code = 2204) AST (test code = 2218) 27 U/L ALT (test code = 2219) 40 U/L COMPREHENSIVE METABOLIC [id number] 00:00:00 Test Item Value Reference Range Interpretation Comments GLUCOSE (test code = 2217) 343 MG/DL BUN (test code = 2208) 9 MG/DL CREATININE (test code = 2214) 0.56 MG/DL eGFR AMER. (test code 138 ML/MIN/1.73 = 20160) eGFR NON- AMER. (test 119 ML/MIN/1.73 code = 55813) CALC BUN/CREAT (test code = 16 RATIO 2235) SODIUM (test code = 2231) 134 MEQ/L POTASSIUM (test code = 2228) 4.1 MEQ/L CHLORIDE (test code = 2215) 93 MEQ/L CARBON DIOXIDE (test code = 21 MEQ/L 6) CALCIUM (test code = 2209) 9.4 MG/DL PROTEIN, TOTAL (test code = 7.1 G/DL 2228) ALBUMIN (test code = 2201) 4.4 G/DL CALC GLOBULIN (test code = 2.7 G/DL 2240) CALC A/G RATIO (test code = 1.6 RATIO 2234) BILIRUBIN, TOTAL (test code = 0.7 MG/DL 2206) ALKALINE PHOSPHATASE (test 66 U/L code = 2204) AST (test code = 2218) 27 U/L ALT (test code = 2219) 40 U/L LIPID [id number] 00:00:00 Test Item Value Reference Range Interpretation Comments CHOLESTEROL (test code = 2210) 185 MG/DL TRIGLYCERIDES (test code = 2232) 394 MG/DL HDL CHOLESTEROL (test code = 2220) 34 MG/DL CALC LDL CHOL (test code = 2237) 72 MG/DL RISK RATIO LDL/HDL (test code = 2.12 RATIO 2238) LIPID [id number] 00:00:00 Test Item Value Reference Range Interpretation Comments CHOLESTEROL (test code = 2210) 185 MG/DL TRIGLYCERIDES (test code = 2232) 394 MG/DL HDL CHOLESTEROL (test code = 2220) 34 MG/DL CALC LDL CHOL (test code = 2237) 72 MG/DL RISK RATIO LDL/HDL (test code = 2.12 RATIO 2238) THYROID II PROFILE (T3U, T4, T7, TSH)[id number] 00:00:00 Test Item Value Reference Range Interpretation Comments T3 UPTAKE (test code = 2817) 32.1 % T4 (THYROXINE) (test code = 2819) 7.0 UG/DL CALCULATED T7 (FTI) (test code = 2.25 2820) TSH (test code = 2821) 1.1 UIU/ML THYROID II PROFILE (T3U, T4, T7, TSH)[id number] 00:00:00 Test Item Value Reference Range Interpretation Comments T3 UPTAKE (test code = 2817) 32.1 % T4 (THYROXINE) (test code = 2819) 7.0 UG/DL CALCULATED T7 (FTI) (test code = 2.25 2820) TSH (test code = 2821) 1.1 UIU/ML HEMOGLOBIN [id number] 00:00:00 Test Item Value Reference Range Interpretation Comments HEMOGLOBIN A1c (test code = 90337) 14.8 % HEMOGLOBIN [id number] 00:00:00 Test Item Value Reference Range Interpretation Comments HEMOGLOBIN A1c (test code = 29481) 14.8 % HEMOGLOBIN [id number] 00:00:00 Test Item Value Reference Range Interpretation Comments HEMOGLOBIN A1c (test code = 88155) 14.8 % MICROALBUMIN, [id number] 00:00:00 Test Item Value Reference Range Interpretation Comments MICROALBUMIN, RANDOM (test code = 0.7 MG/DL 59657) MICROALBUMIN, [id number] 00:00:00 Test Item Value Reference Range Interpretation Comments MICROALBUMIN, RANDOM (test code = 0.7 MG/DL 57850) VITAMIN B 12 AND FOLIC [id number] 00:00:00 Test Item Value Reference Range Interpretation Comments VITAMIN B-12 (test code = 2840) 764 PG/ML FOLIC ACID (test code = 2695) 18.6 NG/ML VITAMIN B 12 AND FOLIC [id number] 00:00:00 Test Item Value Reference Range Interpretation Comments VITAMIN B-12 (test code = 2840) 764 PG/ML FOLIC ACID (test code = 2695) 18.6 NG/ML [id number] 00:00:00 Test Item Value Reference Range Interpretation Comments FERRITIN (test code = 2074) 36 NG/ML [id number] 00:00:00 Test Item Value Reference Range Interpretation Comments FERRITIN (test code = 2074) 36 NG/ML RETICULOCYTE [id number] 00:00:00 Test Item Value Reference Range Interpretation Comments RETICULOCYTE COUNT (test code = 1018) 0.9 % RETICULOCYTE [id number] 00:00:00 Test Item Value Reference Range Interpretation Comments RETICULOCYTE COUNT (test code = 1018) 0.9 % IRON BINDING CAPACITY AND IRON AND % [id number] 00:00:00 Test Item Value Reference Range Interpretation Comments IRON, SERUM (test code = 2222) 82 UG/DL UNSATURATED IBC (test code = 02049) 296 UG/DL CALCULATED TOTAL IBC (test code = 378 UG/DL 2076) CALCULATED % IRON SAT (test code = 22 % 2078) IRON BINDING CAPACITY AND IRON AND % [id number] 00:00:00 Test Item Value Reference Range Interpretation Comments IRON, SERUM (test code = 2222) 82 UG/DL UNSATURATED IBC (test code = 84915) 296 UG/DL CALCULATED TOTAL IBC (test code = 378 UG/DL 2076) CALCULATED % IRON SAT (test code = 22 % 2078) CBC W/AUTO [id number] 00:00:00 Test Item Value Reference Range Interpretation Comments WBC (test code = 1001) 9.5 K/UL RBC (test code = 1002) 4.92 M/UL HEMOGLOBIN (test code = 1003) 14.6 G/DL HEMATOCRIT (test code = 1004) 43.8 % MCV (test code = 1005) 89.0 fL MCH (test code = 1006) 29.7 PG MCHC (test code = 1007) 33.3 G/DL RDW (test code = 1038) 13.4 % NEUTROPHILS (test code = 1008) 68 % LYMPHOCYTES (test code = 1010) 28 % MONOCYTES (test code = 1011) 4 % EOSINOPHILS (test code = 1012) 1 % BASOPHILS (test code = 1013) % PLATELET COUNT (test code = 1015) 233 K/UL CBC W/AUTO [id number] 00:00:00 Test Item Value Reference Range Interpretation Comments WBC (test code = 1001) 9.5 K/UL RBC (test code = 1002) 4.92 M/UL HEMOGLOBIN (test code = 1003) 14.6 G/DL HEMATOCRIT (test code = 1004) 43.8 % MCV (test code = 1005) 89.0 fL MCH (test code = 1006) 29.7 PG MCHC (test code = 1007) 33.3 G/DL RDW (test code = 1038) 13.4 % NEUTROPHILS (test code = 1008) 68 % LYMPHOCYTES (test code = 1010) 28 % MONOCYTES (test code = 1011) 4 % EOSINOPHILS (test code = 1012) 1 % BASOPHILS (test code = 1013) % PLATELET COUNT (test code = 1015) 233 K/UL CBC W/AUTO [id number] 00:00:00 Test Item Value Reference Range Interpretation Comments WBC (test code = 1001) 9.5 K/UL RBC (test code = 1002) 4.92 M/UL HEMOGLOBIN (test code = 1003) 14.6 G/DL HEMATOCRIT (test code = 1004) 43.8 % MCV (test code = 1005) 89.0 fL MCH (test code = 1006) 29.7 PG MCHC (test code = 1007) 33.3 G/DL RDW (test code = 1038) 13.4 % NEUTROPHILS (test code = 1008) 68 % LYMPHOCYTES (test code = 1010) 28 % MONOCYTES (test code = 1011) 4 % EOSINOPHILS (test code = 1012) 1 % BASOPHILS (test code = 1013) % PLATELET COUNT (test code = 1015) 233 K/UL
--- NOTE | 2022-02-03 20:31 | ER ---
Nurse's Notes [facility] Name: Jodee Rae Age: 41 yrs Sex: Female : 1980 Arrival Date: 02/03/2022 Time: 19:11 Bed Waiting Private MD: Diagnosis: Presentation: 02/03 19:29 Chief complaint: Patient states: Pt reports swelling to bilateral hands, feet, lower kb3 legs, eyes, nose. Reports she has been off her meds while in senior care and recently restarted all meds per her PCP. Coronavirus screen: Vaccine status: Patient reports being unvaccinated. Client denies travel out of the [place] in the last 14 days. At this time, the client does not indicate any symptoms associated with coronavirus-19. Ebola Screen: Patient negative for fever greater than or equal to 101.5 degrees Fahrenheit, and additional compatible Ebola Virus Disease symptoms Patient denies exposure to infectious person. Patient denies travel to an Ebola-affected area in the 21 days before illness onset. No symptoms or risks identified at this time. Onset: The symptoms/episode began/occurred gradually, 4 day(s) ago. Anaphylaxis evaluation, no signs or symptoms of anaphylaxis were noted. Initial Sepsis Screen: Does the patient meet any 2 criteria? No. Patient's initial sepsis screen is negative. Does the patient have a suspected source of infection? No. Patient's initial sepsis screen is negative. Risk Assessment: Do you want to hurt yourself or someone else? Patient reports no desire to harm self or others. Onset of symptoms was January 31, 2022. 19:29 Method Of Arrival: Ambulatory kb3 19:29 Acuity: GERTRUDIS 3 kb3 Triage Assessment: 19:32 General: Appears in no apparent distress. Behavior is calm, cooperative. Pain: Denies kb3 pain. 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: 19:32 LMP 10/25/2021 kb3 Historical: - Allergies: 19:32 Lisinopril; cough; kb3 19:32 Letha Carbonate; kb3 19:32 PENICILLINS (Upset stomach); kb3 - Home Meds: 19:32 Actos Oral [Active]; atorvastatin Oral [Active]; citalopram oral once daily [Active]; kb3 gabapentin 300 mg Oral cap 1 cap 3 times per day [Active]; hydroxyzine HCl 25 mg Oral tab 1 tab 2 times daily [Active]; Lantus 100 unit/mL Sub-Q soln [Active]; metformin 1,000 mg Oral tab 1 tab 2 times per day [Active]; Novolog 100 unit/mL Sub-Q soln [Active]; Seroquel 200 mg Oral tab 1 tab nightly [Active]; - PMHx: 19:32 Asthma; Bipolar disorder; Depression; Diabetes - IDDM; kb3 - PSHx: 19:32 section; hand; tubal ligation; kb3 - Immunization history:: Adult Immunizations up to date, Client reports having NOT received the Covid vaccine. Last tetanus immunization: < 5 years ago. - Social history:: Smoking status: Patient reports the use of cigarette tobacco products, smokes one-half pack cigarettes per day. Vital Signs: 19:29 BP 154 / 108; Pulse 94; Resp 20; Temp 98.2; Pulse Ox 100% ; Weight 65.77 kg; Height 5 kb3 ft. 1 in. (154.94 cm); Pain 0/10; 19:29 Body Mass Index 27.40 (65.77 kg, 154.94 cm) kb3 ED Course: 19:11 Patient arrived in ED. bp1 19:32 Triage completed. kb3 19:32 Arm band placed on right wrist. kb3 19:44 Marion [facility] F[facility]C [facility] snw 19:44 Tyrone Sotomayor MD is Attending Physician. snw Administered Medications: No medications were administered Outcome: 20:30 Eloped from waiting room, Time discovered patient gone: February 03, 2022 at 20:30 as6 20:31 Patient left the ED. as6 Signatures: Marion Chin FNP-C INVESTOR-[employer] Mena Ortiz Ashby, FRANKIE RN as6 India Hernandez, RN RN kb3
[2022-02-03 21:33] VITALS: BP 154/108; TEMP 98.2; O2SAT 100
--- NOTE | 2022-02-04 20:32 | EDPHYS ---
Physician Documentation [facility] Name: Jodee Rae Age: 41 yrs Sex: Female : 1980 Arrival Date: 02/03/2022 Time: 19:11 Bed Waiting Private MD: ED Physician Tyrone Sotomayor TYPING BOOKKEEPER: 02/03 19:32 LMP 10/25/2021 kb3 Historical: - Allergies: 19:32 Lisinopril; cough; kb3 19:32 Milo Carbonate; kb3 19:32 PENICILLINS (Upset stomach); kb3 - Home Meds: 19:32 Actos Oral [Active]; atorvastatin Oral [Active]; citalopram oral once daily [Active]; kb3 gabapentin 300 mg Oral cap 1 cap 3 times per day [Active]; hydroxyzine HCl 25 mg Oral tab 1 tab 2 times daily [Active]; Lantus 100 unit/mL Sub-Q soln [Active]; metformin 1,000 mg Oral tab 1 tab 2 times per day [Active]; Novolog 100 unit/mL Sub-Q soln [Active]; Seroquel 200 mg Oral tab 1 tab nightly [Active]; - PMHx: 19:32 Asthma; Bipolar disorder; Depression; Diabetes - IDDM; kb3 - PSHx: 19:32 section; hand; tubal ligation; kb3 - Immunization history:: Adult Immunizations up to date, Client reports having NOT received the Covid vaccine. Last tetanus immunization: < 5 years ago. - Social history:: Smoking status: Patient reports the use of cigarette tobacco products, smokes one-half pack cigarettes per day. Vital Signs: 19:29 BP 154 / 108; Pulse 94; Resp 20; Temp 98.2; Pulse Ox 100% ; Weight 65.77 kg; Height 5 kb3 ft. 1 in. (154.94 cm); Pain 0/10; 19:29 Body Mass Index 27.40 (65.77 kg, 154.94 cm) kb3 MDM: 19:50 ED course: 1950 unable to find pt in lobby. snw 20:23 Patient medically screened. bre 20:25 ED course: Pt called to come back to triage, no answer in the lobby. snw Administered Medications: No medications were administered Disposition Summary: 02/03/22 20:31 Eloped Disposition: post triage evaluation and consult as6 Reason: unknown as6 Signatures: Tyrone Sotomayor MD MD cha Waters, Shelly, JOVON-C LINOLEUM LAYER APPRENTICE-Carliw Ralph Roberts RN RN as6 India Hernandez RN RN kb3
== END 2022-02-03 20:31 | disposition left against medical advice (07) ==
LOC: ER 19:08
DX: Z02.9 Encounter for administrative examinations, unspecified (principal)
CPT/HCPCS: 99281

== ENCOUNTER 2022-08-25 15:43 | Emergency (ER) | payer OTHER ==
--- OUTSIDE RECORDS SUMMARY | 2022-08-25 16:07 | XMS REPORT | Continuity of Care Document ---
:1980 Author Organization [facility] t Address [address] [place] [place] [address] Care Team Providers Name Role Phone Dania Velazquez Primary Care Physician [phone] Baldomero Ortiz DO Attending Clinician Payers Payer Name Policy Type Policy Number Effective Date Expiration Date S ource Problems Condition Condition Condition Status Onset Resolution Last Treating Co mments Source Name Details Category Date Date Treatment Clinician Date Other Other Disease Active 2018-06 Univers general general 2-03 ity of counseling [place] advice [place] [facility] contracept contracept riri riri management management History of History of Disease Active 2018-06 U lauraers tubal tubal 2-03 ity of ligation ligation 00:00: [address] History of History of Disease Active 2018-06 U dinesh hypertensi hypertensi 2-03 it y of on on 00:00: [address] Obesity Obesity Disease Active Univers (BMI (BMI 8-16 ity of 30-39.9) 30-39.9) 00:00: [address] Branch Diabetes Diabetes Disease Active Unive rs type 2, type 2, 3-26 ity of uncontroll uncontroll [place] [facility] Cervical Cervical Disease Active 2016-06 Unive rs polyp polyp 2-04 ity of 00:00: [place] 00 [facility] History of History of Disease Active U nivers drug abuse drug abuse 02-23 it y of 00:00: [place] [facility] History of History of Disease Active U nivers alcohol alcohol 02-23 ity of abuse abuse 00:00: [place] [facility] Depression Depression Disease Active U nivers , , 02-23 ity of unspecifie unspecifie [place] Medical depression depression Br anch type type Bipolar Bipolar Disease Active Univers affective affective 02-23 ity of disorder, disorder, [place] remission [facility] status status Branch unspecifie unspecifie d d History of History of Disease Active U nivers tobacco tobacco 02-23 ity of use use 00:00: [place] 00 [facility] Allergies, Adverse Reactions, Alerts Allergy Allergy Status Severity Reaction(s) Onset Inactive Treating Comm ents Source Name Type Date Date Clinician n Propensi Active ty to 5-26 adverse 00:00: reaction 00 to drug Lisinopr Propensi Active il - ty to 3-23 Oral adverse 00:00: reaction 00 to drug [place] Propensi Active [place] Univers ty to 7-01 ity of adverse 00:00: [place] reaction Medical s Branch Lisinopr Propensi Active Cough Univer s il ty to 918 ity of adverse 00:00: [place] reaction 00 Medical s Branch Social History Social Habit Start Date Stop Date Quantity Comments Source Cigarette 2019-05-10 2019-05-10 University of pack-years 00:00:00 00:00:00 [facility] Tobacco use and 2019-05-10 2019-05-10 Never used Universit y of exposure 00:00:00 00:00:00 [facility] Alcohol intake 2019-05-10 2019-05-10 Current University of 00:00:00 00:00:00 non-drinker of [facility] alcohol Branch (finding) Cigarettes smoked 2019-05-10 2019-05-10 Univers ity of current (pack per 00:00:00 00:00:00 ) - Reported Branch History of tobacco 2017-02-20 Cigarette Smoker University of use 00:00:00 [facility] Sex Ass[birth year] At [birth year] Universit y of 00:00:00 00:00:00 [facility] Smoking Status Start Date Stop Date Source Current every day smoker 2019-05-10 00:00:00 Uni versity of [facility] Medications Ordered Filled Start Stop Current Ordering Indication Dosage Frequency Signature Comments Components Source Medication Medication Date Date Medication? Clinician (SIG) Name Name BEN 2021-0 No SOLOS INJ 9-20 100/ML 00:00: 00 LANTUS 2-0 No SOLOS INJ 9-20 100/ML 00:00: 00 LANTUS 2022-0 No SOLOS INJ 9-20 100/ML 00:00: 00 LANTUS 2-0 No SOLOS INJ 9-20 100/ML 00:00: 00 TAKE 1 2021-0 No TABLET 8-24 DAILY 00:00: DIRECTED. 00 TAKE 1 2021-0 No TABLET 8-24 DAILY 00:00: DIRECTED. 00 TAKE 1 2021-0 No TABLET 8-24 DAILY 00:00: DIRECTED. 00 TAKE 1 2021-0 No 10 TABLET 8-24 DAILY 00:00: DIRECTED. 00 TAKE 1 2021-0 No TABLET 8-24 DAILY 00:00: DIRECTED. 00 TAKE 1 2021-0 No 10 TABLET 8-24 DAILY 00:00: DIRECTED. 00 &lt 2022-0 No 250 8-16 00:00: 00 &lt 2022-0 No 8-16 00:00: 00 &lt 2022-0 No 250 8-16 00:00: 00 &lt 2022-0 No 8-16 00:00: 00 &lt 2022-0 No 250 8-16 00:00: 00 &lt 2022-0 No 8-16 00:00: 00 &lt 2022-0 No 250 8-16 00:00: 00 &lt 2022-0 No 8-16 00:00: 00 &lt 2022-0 No 250 8-16 00:00: 00 &lt 2022-0 No 8-16 00:00: 00 &lt 2022-0 No 250 8-16 00:00: 00 &lt 2022-0 No 8-16 00:00: 00 ondansetron 2021-0 No 1mg 4 mg 7-20 disintegrat 00:00: ing tablet 00 TAKE 1 2022-0 No 200 CAPSULE BY 7-20 MOUTH EVERY 00:00: 8 HOURS 00 NEEDED INHALE 2 2022-0 No PUFFS BY 7-20 MOUTH EVERY 00:00: 4 TO 6 00 HOURS NEEDED &lt 2022-0 No 7-20 00:00: 00 INJECT 10 2022-0 No UNITS BELOW 7-20 THE SKIN 00:00: DAILY 00 ondansetron 2022-0 No 1mg 4 mg 7-20 disintegrat 00:00: ing tablet 00 TAKE 1 2-0 No 200 CAPSULE BY 7-20 MOUTH EVERY 00:00: 8 HOURS 00 NEEDED INHALE 2 2022-0 No PUFFS BY 7-20 MOUTH EVERY 00:00: 4 TO 6 00 HOURS NEEDED &lt 2022-0 No 7-20 00:00: 00 INJECT 10 2022-0 No UNITS BELOW 7-20 THE SKIN 00:00: DAILY 00 ondansetron 2-0 No 1mg 4 mg 7-20 disintegrat 00:00: ing tablet 00 TAKE 1 2021-0 No 200 CAPSULE BY 7-20 MOUTH EVERY 00:00: 8 HOURS 00 NEEDED INHALE 2 2022-0 No PUFFS BY 7-20 MOUTH EVERY 00:00: 4 TO 6 00 HOURS NEEDED &lt 2022-0 No 7-20 00:00: 00 INJECT 10 2022-0 No UNITS BELOW 7-20 THE SKIN 00:00: DAILY 00 ondansetron 2-0 No 1mg 4 mg 7-20 disintegrat 00:00: ing tablet 00 TAKE 1 2-0 No 200 CAPSULE BY 7-20 MOUTH EVERY 00:00: 8 HOURS 00 NEEDED INHALE 2 2022-0 No PUFFS BY 7-20 MOUTH EVERY 00:00: 4 TO 6 00 HOURS NEEDED &lt 2022-0 No 7-20 00:00: 00 INJECT 10 2022-0 No UNITS BELOW 7-20 THE SKIN 00:00: DAILY 00 ondansetron 2-0 No 1mg 4 mg 7-20 disintegrat 00:00: ing tablet 00 TAKE 1 2-0 No 200 CAPSULE BY 7-20 MOUTH EVERY 00:00: 8 HOURS 00 NEEDED INHALE 2 2022-0 No PUFFS BY 7-20 MOUTH EVERY 00:00: 4 TO 6 00 HOURS NEEDED &lt 2022-0 No 7-20 00:00: 00 INJECT 10 2-0 No UNITS BELOW 7-20 THE SKIN 00:00: DAILY 00 ondansetron 2-0 No 1mg 4 mg 7-20 disintegrat 00:00: ing tablet 00 TAKE 1 2-0 No 200 CAPSULE BY 7-20 MOUTH EVERY 00:00: 8 HOURS 00 NEEDED INHALE 2 2-0 No PUFFS BY 7-20 MOUTH EVERY 00:00: 4 TO 6 00 HOURS NEEDED &lt 2022-0 No 7-20 00:00: 00 INJECT 10 2-0 No UNITS BELOW 7-20 THE SKIN 00:00: DAILY 00 ondansetron 2-0 No 1mg 4 mg 5-26 disintegrat 00:00: ing tablet 00 benzonatate 2-0 No 1mg 200 mg 5-26 capsule 00:00: 00 ondansetron 2-0 No 1mg 4 mg 5-26 disintegrat 00:00: ing tablet 00 benzonatate 2-0 No 1mg 200 mg 5-26 capsule 00:00: 00 ondansetron 2-0 No 1mg 4 mg 5-26 disintegrat 00:00: ing tablet 00 benzonatate 2-0 No 1mg 200 mg 5-26 capsule 00:00: 00 ondansetron 2-0 No 1mg 4 mg 5-26 disintegrat 00:00: ing tablet 00 benzonatate 2022-0 No 1mg 200 mg 5-26 capsule 00:00: 00 ondansetron 2-0 No 1mg 4 mg 5-26 disintegrat 00:00: ing tablet 00 benzonatate 2-0 No 1mg 200 mg 5-26 capsule 00:00: 00 ondansetron 2-0 No 1mg 4 mg 5-26 disintegrat 00:00: ing tablet 00 benzonatate 2022-0 No 1mg 200 mg 5-26 capsule 00:00: 00 Advair 2-0 No 1mcg/do Diskus 100 3-23 se mcg-50 00:00: mcg/dose 00 powder for inhalation benzonatate 2-0 No 1mg 200 mg 3-23 capsule 00:00: 00 Dose 2022-0 No Unknown 3-23 [...] Dose 2-0 No Unknown 3-23 00:00: 00 Advair 2-0 No 1mcg/do Diskus 100 3-23 se mcg-50 [...] Dose 2-0 No Unknown 3-23 00:00: 00 Advair 2-0 No 1mcg/do Diskus 100 3-23 se mcg-50 [...] Dose 2-0 No Unknown 3-23 00:00: 00 Advair 2-0 No 1mcg/do Diskus 100 3-23 se mcg-50 00:00: mcg/dose 00 powder for inhalation Dose 2-0 No Unknown 3-23 00:00: 00 benzonatate 2-0 No 1mg 200 mg 3-23 capsule 00:00: [...] Dose 2022-0 No Unknown 3-23 00:00: 00 Advair 2022-0 No 1mcg/do Diskus 100 3-23 se mcg-50 [...] Dose 2-0 No Unknown 3-23 00:00: 00 Advair 2021-0 No 1mcg/do Diskus [...] 3-09 00:00: 00 Dose 2022-0 No Unknown 3-04 00:00: 00 Dose 2022-0 No Unknown 3-04 00:00: 00 Dose 2022-0 No Unknown 3-04 00:00: 00 Dose 2022-0 No Unknown 3-04 00:00: 00 Dose 2022-0 No Unknown 3-04 00:00: 00 Dose 2022-0 No Unknown 3-04 00:00: 00 Dose 2022-0 No Unknown 3-04 00:00: 00 Dose 2022-0 No Unknown 3-04 00:00: 00 Dose 2022-0 No Unknown 3-04 00:00: 00 Dose 2022-0 No Unknown 3-04 00:00: 00 Dose 2022-0 No Unknown 3-04 00:00: 00 Dose 2022-0 No Unknown 3-04 00:00: 00 Dose 2022-0 No Unknown 3-04 00:00: 00 Dose 2022-0 No Unknown 3-04 00:00: 00 Dose 2022-0 No Unknown 3-04 00:00: 00 Dose 2022-0 No Unknown 3-04 00:00: 00 Dose 2022-0 No Unknown 3-04 00:00: 00 Dose 2022-0 No Unknown 3-04 00:00: 00 Dose 2022-0 No Unknown 3-04 00:00: 00 Dose 2022-0 No Unknown 3-04 00:00: 00 Dose 2022-0 No Unknown 3-04 00:00: 00 Dose 2022-0 No Unknown 3-04 00:00: 00 Dose 2022-0 No Unknown 3-04 00:00: 00 Dose 2022-0 No Unknown 3-04 00:00: 00 Dose 2022-0 No Unknown 3-04 00:00: 00 Dose 2022-0 No Unknown 3-04 00:00: 00 Dose 2022-0 No Unknown 3-04 00:00: 00 Dose 2022-0 No Unknown 3-04 00:00: 00 Dose 2022-0 No Unknown 3-04 00:00: 00 Dose 2022-0 No Unknown 3-04 00:00: 00 Dose 2022-0 No Unknown 3-04 00:00: 00 Dose 2022-0 No Unknown 3-04 00:00: 00 Dose 2022-0 No Unknown 3-04 00:00: 00 Dose 2022-0 No Unknown 3-04 00:00: 00 Dose 2022-0 No Unknown 3-04 00:00: 00 Dose 2022-0 No Unknown 3-04 00:00: 00 Dose 2022-0 No Unknown 3-04 00:00: 00 Dose 2022-0 No Unknown 3-04 00:00: 00 Dose 2022-0 No Unknown 3-04 00:00: 00 Dose 2022-0 No Unknown 3-04 00:00: 00 Dose 2022-0 No Unknown 3-04 00:00: 00 Dose 2022-0 No Unknown 3-04 00:00: 00 Dose 2022-0 No Unknown 2-08 00:00: 00 Dose 2022-0 No Unknown 2-08 00:00: 00 Dose 2022-0 No Unknown 2-08 00:00: 00 Dose 2022-0 No Unknown 2-08 00:00: 00 Dose 2022-0 No Unknown 2-08 00:00: 00 Dose 2022-0 No Unknown 2-08 00:00: 00 Dose 2022-0 No Unknown 2-01 00:00: 00 Dose 2022-0 No Unknown 2-01 00:00: 00 Dose 2022-0 No Unknown 2-01 00:00: 00 Dose 2022-0 No Unknown 2-01 00:00: 00 Dose 2022-0 No Unknown 2-01 00:00: 00 Dose 2022-0 No Unknown 2- 00:00: 00 ondansetron 2022-0 No 1mg 8 mg 1-18 disintegrat 00:00: ing tablet 00 Dose 2022-0 No Unknown 1-18 00:00: 00 ondansetron 2022-0 No 1mg 8 mg 1-18 disintegrat 00:00: ing tablet 00 Dose 2022-0 No Unknown 1-18 00:00: 00 ondansetron 2022-0 No 1mg 8 mg 1-18 disintegrat 00:00: ing tablet 00 Dose 2022-0 No Unknown 1-18 00:00: 00 ondansetron 2022-0 No 1mg 8 mg 1-18 disintegrat 00:00: ing tablet 00 Dose 2022-0 No Unknown 1-18 00:00: 00 ondansetron 2022-0 No 1mg 8 mg 1-18 disintegrat 00:00: ing tablet 00 Dose 2022-0 No Unknown 1-18 00:00: 00 ondansetron 2022-0 No 1mg 8 mg 1-18 disintegrat 00:00: ing tablet 00 Dose 2022-0 No Unknown 1-18 00:00: 00 ProAir HFA 2022-0 No 2mcg/ac 90 1-14 tuation mcg/actuati 00:00: on aerosol 00 inhaler ProAir HFA 2022-0 No 2mcg/ac 90 1-14 tuation mcg/actuati 00:00: on aerosol 00 inhaler ProAir HFA 2022-0 No 2mcg/ac 90 1-14 tuation mcg/actuati 00:00: on aerosol 00 inhaler ProAir HFA 2022-0 No 2mcg/ac 90 1-14 tuation mcg/actuati 00:00: on aerosol 00 inhaler ProAir HFA 2022-0 No 2mcg/ac 90 1-14 tuation mcg/actuati 00:00: on aerosol 00 inhaler ProAir HFA 0 No 2mcg/ac 90 -14 tuation mcg/actuati 00:00: on aerosol 00 inhaler Victoza 2020-06 No (18 3-Daniel 0.6 2-14 mg/3 mg/0.1 mL 00:00: mL) (18 mg/3 00 mL) subcutaneou s pen injector Novolog 2020-06 No 5(3 mL) Flexpen 2-14 U-100 00:00: Insulin 00 aspart 100 unit/mL (3 mL) subcutaneou s Lantus 2020-06 No 10(3 Solostar 2-14 mL) U-100 00:00: Insulin 100 00 unit/mL (3 mL) subcutaneou s pen Victoza 2020-06 No (18 3-Daniel 0.6 2-14 mg/3 mg/0.1 mL 00:00: mL) (18 mg/3 00 mL) subcutaneou s pen injector Novolog 2020-06 No 5(3 mL) Flexpen 2-14 U-100 00:00: Insulin 00 aspart 100 unit/mL (3 mL) subcutaneou s Lantus 2020-06 No 10(3 Solostar 2-14 mL) U-100 00:00: Insulin 100 00 unit/mL (3 mL) subcutaneou s pen Victoza 2020-06 No (18 3-Daniel 0.6 2-14 mg/3 mg/0.1 mL 00:00: mL) (18 mg/3 00 mL) subcutaneou s pen injector Novolog 2020-06 No 5(3 mL) Flexpen 2-14 U-100 00:00: Insulin 00 aspart 100 unit/mL (3 mL) subcutaneou s Lantus 2020-06 No 10(3 Solostar 2-14 mL) U-100 00:00: Insulin 100 00 unit/mL (3 mL) subcutaneou s pen Victoza 2020-06 No (18 3-Daniel 0.6 2-14 mg/3 mg/0.1 mL 00:00: mL) (18 mg/3 00 mL) subcutaneou s pen injector Novolog 2020-06 No 5(3 mL) Flexpen 2-14 U-100 00:00: Insulin 00 aspart 100 unit/mL (3 mL) subcutaneou s Lantus 2020-06 No 10(3 Solostar 2-14 mL) U-100 00:00: Insulin 100 00 unit/mL (3 mL) subcutaneou s pen Victoza 2020-06 No (18 3-Daniel 0.6 2-14 mg/3 mg/0.1 mL 00:00: mL) (18 mg/3 00 mL) subcutaneou s pen injector Novolog 2020-06 No 5(3 mL) Flexpen 2-14 U-100 00:00: Insulin 00 aspart 100 unit/mL (3 mL) subcutaneou s Lantus 2020-06 No 10(3 Solostar 2-14 mL) U-100 00:00: Insulin 100 00 unit/mL (3 mL) subcutaneou s pen Victoza 2020-06 No (18 3-Daniel 0.6 2-14 [...] 1mg 100 mg 1-05 capsule 00:00: 00 benzonatate 2020-06 No 1mg 100 mg 1-05 capsule 00:00: 00 benzonatate 2020-06 No 1mg 100 mg 1-05 capsule 00:00: 00 benzonatate 2020-06 No 1mg 100 mg 1-05 capsule 00:00: 00 benzonatate 2020-06 No 1mg 100 mg 1-05 capsule 00:00: 00 benzonatate 2020-06 No 1mg 100 mg 1-05 capsule 00:00: 00 diclofenac 2020-06 No 1mg sodium 75 0-20 mg 00:00: tablet,anna 00 yed release duloxetine 2020-06 No 1mg 60 mg 0-20 capsule,del 00:00: ayed 00 release diclofenac 2020- No 1mg sodium 75 0-20 mg 00:00: tablet,anna 00 yed release duloxetine 2020- No 1mg 60 mg 0-20 capsule,del 00:00: ayed 00 release diclofenac 2020- No 1mg sodium 75 0-20 mg 00:00: tablet,anna 00 yed release duloxetine 2020- No 1mg 60 mg 0-20 capsule,del 00:00: ayed 00 release diclofenac 2020- No 1mg sodium 75 0-20 mg 00:00: tablet,anna 00 yed release duloxetine 2020- No 1mg 60 mg 0-20 capsule,del 00:00: ayed 00 release diclofenac 2020- No 1mg sodium 75 0-20 mg 00:00: tablet,anna yed release duloxetine 2020-06 No 1mg 60 mg 0-20 capsule,del 00:00: ayed 00 release diclofenac 2020- No 1mg sodium 75 0-20 mg 00:00: tablet,anna yed release duloxetine 2020-06 No 1mg 60 mg 0-20 capsule,del 00:00: ayed 00 release Novolog 2020- No 5(3 mL) Flexpen 0-08 U-100 00:00: Insulin 00 aspart 100 unit/mL (3 mL) subcutaneou s Lantus 2020-06 No 10(3 Solostar 0-08 mL) U-100 00:00: Insulin 100 00 unit/mL (3 mL) subcutaneou s pen loratadine 2020- No 1mg 10 mg 0-08 tablet 00:00: 00 loratadine 2020- No 1mg 10 mg 0-08 tablet 00:00: 00 Novolog 2020- No 5(3 mL) Flexpen 0-08 U-100 00:00: Insulin 00 aspart 100 unit/mL (3 mL) subcutaneou s Lantus 2020-06 No 10(3 Solostar 0-08 mL) U-100 00:00: Insulin 100 00 unit/mL (3 mL) subcutaneou s pen loratadine 2020- No 1mg 10 mg 0-08 tablet 00:00: 00 loratadine 2020-06 No 1mg 10 mg 0-08 tablet 00:00: 00 Novolog 2020-06 No 5(3 mL) Flexpen 0-08 U-100 00:00: Insulin 00 aspart 100 unit/mL (3 mL) subcutaneou s Lantus 2020-06 No 10(3 Solostar 0-08 mL) U-100 00:00: Insulin 100 00 unit/mL (3 mL) subcutaneou s pen loratadine 2020-06 No 1mg 10 mg 0-08 tablet 00:00: 00 loratadine 2020-06 No 1mg 10 mg 0-08 tablet 00:00: 00 Novolog 2020-06 No 5(3 mL) Flexpen 0-08 U-100 00:00: Insulin 00 aspart 100 unit/mL (3 mL) subcutaneou s Lantus 2020-06 No 10(3 Solostar 0-08 mL) U-100 00:00: Insulin 100 00 unit/mL (3 mL) subcutaneou s pen loratadine 2020-06 No 1mg 10 mg 0-08 tablet 00:00: 00 loratadine 2020-06 No 1mg 10 mg 0-08 tablet 00:00: 00 Novolog 2020-06 No 5(3 mL) Flexpen 0-08 U-100 00:00: Insulin 00 aspart 100 unit/mL (3 mL) subcutaneou s Lantus 2020-06 No 10(3 Solostar 0-08 mL) U-100 00:00: Insulin 100 00 unit/mL (3 mL) subcutaneou s pen loratadine 2020-06 No 1mg 10 mg 0-08 tablet 00:00: 00 loratadine 2020-06 No 1mg 10 mg 0-08 tablet 00:00: 00 Novolog 2020-06 No 5(3 mL) Flexpen 0-08 U-100 00:00: Insulin 00 aspart 100 unit/mL (3 mL) subcutaneou s Lantus 2020-06 No 10(3 Solostar 0-08 mL) U-100 00:00: Insulin 100 00 unit/mL (3 mL) subcutaneou s pen loratadine 2020-06 No 1mg 10 mg 0-08 tablet 00:00: 00 loratadine 2021-1 No 1mg 10 mg 0-08 tablet 00:00: 00 ProAir HFA 2021-0 No 2mcg/ac 90 9-03 tuation mcg/actuati 00:00: on aerosol 00 inhaler levofloxaci 2021-0 No 1mg n 500 mg 9-03 tablet 00:00: 00 ondansetron 2021-0 No 1mg 4 mg 9- disintegrat 00:00: ing tablet 00 ProAir HFA 2021-0 No 2mcg/ac 90 9-03 tuation mcg/actuati 00:00: on aerosol 00 inhaler levofloxaci 2021-0 No 1mg n 500 mg 9-03 tablet 00:00: 00 ondansetron 2021-0 No 1mg 4 mg 9- disintegrat 00:00: ing tablet 00 ProAir HFA 2021-0 No 2mcg/ac 90 9-03 tuation mcg/actuati 00:00: on aerosol 00 inhaler levofloxaci 1-0 No 1mg n 500 mg 9-03 tablet 00:00: 00 ondansetron 2021-0 No 1mg 4 mg 9- disintegrat 00:00: ing tablet 00 ProAir HFA 1-0 No 2mcg/ac 90 9-03 tuation mcg/actuati 00:00: on aerosol 00 inhaler levofloxaci 1-0 No 1mg n 500 mg 9- tablet 00:00: 00 ondansetron 2021-0 No 1mg 4 mg 9- disintegrat 00:00: ing tablet 00 ProAir HFA 1-0 No 2mcg/ac 90 9-03 tuation mcg/actuati 00:00: on aerosol 00 inhaler levofloxaci 2021-0 No 1mg n 500 mg 9-03 tablet 00:00: 00 ondansetron 2021-0 No 1mg 4 mg 9-03 disintegrat 00:00: ing tablet 00 ProAir HFA 2021-0 No 2mcg/ac 90 9-03 tuation mcg/actuati 00:00: on aerosol 00 inhaler levofloxaci 2021-0 No 1mg n 500 mg 9-03 tablet 00:00: 00 ondansetron 2021-0 No 1mg 4 mg 9-03 disintegrat 00:00: ing tablet 00 azithromyci 2021-0 No mg n 250 mg 6-22 tablet 00:00: 00 benzonatate 2021-0 No 1mg 200 mg 6-22 capsule 00:00: 00 azithromyci 2021-0 No mg n 250 mg 6-22 tablet 00:00: 00 benzonatate 2021-0 No 1mg 200 mg 6-22 capsule 00:00: 00 azithromyci 2021-0 No mg n 250 mg 6-22 tablet 00:00: 00 benzonatate 2021-0 No 1mg 200 mg 6-22 capsule 00:00: 00 azithromyci 2021-0 No mg n 250 mg 6-22 tablet 00:00: 00 benzonatate 2021-0 No 1mg 200 mg 6-22 capsule 00:00: 00 azithromyci 2021-0 No mg n 250 mg 6-22 tablet 00:00: 00 benzonatate 2021-0 No 1mg 200 mg 6-22 capsule 00:00: 00 azithromyci 2021-0 No mg n 250 mg 6-22 tablet 00:00: 00 benzonatate 2021-0 No 1mg 200 mg 6-22 capsule 00:00: 00 Novolog 2021-0 No 5(3 mL) Flexpen 5-27 U-100 00:00: Insulin 00 aspart 100 unit/mL (3 mL) subcutaneou s Novolog 2021-0 No 5(3 mL) Flexpen 5-27 U-100 00:00: Insulin 00 aspart 100 unit/mL (3 mL) subcutaneou s Novolog 2021-0 No 5(3 mL) Flexpen 5-27 U-100 00:00: Insulin 00 aspart 100 unit/mL (3 mL) subcutaneou s Novolog 2021-0 No 5(3 mL) Flexpen 5-27 U-100 00:00: Insulin 00 aspart 100 unit/mL (3 mL) subcutaneou s Novolog 2021-0 No 5(3 mL) Flexpen 5-27 U-100 00:00: Insulin 00 aspart 100 unit/mL (3 mL) subcutaneou s Novolog 2021-0 No 5(3 mL) Flexpen 5-27 U-100 00:00: Insulin 00 aspart 100 unit/mL (3 mL) subcutaneou s Novolog 2021-0 No 5(3 mL) Flexpen 5-27 U-100 00:00: Insulin 00 aspart 100 unit/mL (3 mL) subcutaneou s Novolog 2021-0 No 5(3 mL) Flexpen 5-27 U-100 00:00: Insulin 00 aspart 100 unit/mL (3 mL) subcutaneou s Novolog 2021-0 No 5(3 mL) Flexpen 5-27 U-100 00:00: Insulin 00 aspart 100 unit/mL (3 mL) subcutaneou s Novolog 2021-0 No 5(3 mL) Flexpen 5-27 U-100 00:00: Insulin 00 aspart 100 unit/mL (3 mL) subcutaneou s Novolog 2021-0 No 5(3 mL) Flexpen 5-27 U-100 00:00: Insulin 00 aspart 100 unit/mL (3 mL) subcutaneou s Novolog 2021-0 No 5(3 mL) Flexpen 5-27 U-100 00:00: Insulin 00 aspart 100 unit/mL (3 mL) subcutaneou s Lantus 1-0 No 10(3 Solostar 5-26 mL) U-100 00:00: Insulin 100 00 unit/mL (3 mL) subcutaneou s pen Lantus 1-0 No 10(3 Solostar 5-26 mL) U-100 00:00: Insulin 100 00 unit/mL (3 mL) subcutaneou s pen Lantus 1-0 No 10(3 Solostar 5-26 mL) U-100 00:00: Insulin 100 00 unit/mL (3 mL) subcutaneou s pen Lantus 1-0 No 10(3 Solostar 5-26 mL) U-100 00:00: Insulin 100 00 unit/mL (3 mL) subcutaneou s pen Lantus 2021-0 No 10(3 Solostar 5-26 mL) U-100 00:00: Insulin 100 00 unit/mL (3 mL) subcutaneou s pen Lantus 2021-0 No 10(3 Solostar 5-26 mL) U-100 00:00: Insulin 100 00 unit/mL (3 mL) subcutaneou s pen triamcinolo 2021-0 No 1% ne 5-20 acetonide 00:00: 0.1 % 00 topical cream triamcinolo 1-0 No 1% ne 5-20 acetonide 00:00: 0.1 % 00 topical cream triamcinolo 1-0 No 1% ne 5-20 acetonide 00:00: 0.1 % 00 topical cream triamcinolo 1-0 No 1% ne 5-20 acetonide 00:00: 0.1 % 00 topical cream triamcinolo 1-0 No 1% ne 5-20 acetonide 00:00: 0.1 % 00 topical cream triamcinolo 1-0 No 1% ne 5-20 acetonide 00:00: 0.1 % 00 topical cream TAKE 1 1-0 No TABLET 5-02 DAILY 00:00: DIRECTED. 00 fenofibrate 2021-0 No 1mg 120 mg 5-02 tablet 00:00: 00 rosuvastati 2021-0 No 1mg n 5 mg 5-02 tablet 00:00: 00 lisinopril 2021-0 No 1mg 2.5 mg 5-02 tablet 00:00: 00 glipizide 2021-0 No 1mg 10 mg 5-02 tablet 00:00: 00 fenofibrate 2021-0 No 1mg 120 mg 5-02 tablet 00:00: 00 rosuvastati 2021-0 No 1mg n 5 mg 5-02 tablet 00:00: 00 lisinopril 2021-0 No 1mg 2.5 mg 5-02 tablet 00:00: 00 TAKE 1 2021-0 No TABLET 5-02 DAILY 00:00: DIRECTED. 00 fenofibrate 2021-0 No 1mg 120 mg 5-02 tablet 00:00: 00 rosuvastati 2021-0 No 1mg n 5 mg 5-02 tablet 00:00: 00 lisinopril 2021-0 No 1mg 2.5 mg 5-02 tablet 00:00: 00 TAKE 1 2021-0 No TABLET 5-02 DAILY 00:00: DIRECTED. 00 fenofibrate 2021-0 No 1mg 120 mg 5-02 tablet 00:00: 00 rosuvastati 2021-0 No 1mg n 5 mg 5-02 tablet 00:00: 00 lisinopril 2021-0 No 1mg 2.5 mg 5-02 tablet 00:00: 00 TAKE 1 2021-0 No TABLET 5-02 DAILY 00:00: DIRECTED. 00 fenofibrate 2021-0 No 1mg 120 mg 5-02 tablet 00:00: 00 rosuvastati 2021-0 No 1mg n 5 mg 5-02 tablet 00:00: 00 lisinopril 2021-0 No 1mg 2.5 mg 5-02 tablet 00:00: 00 glipizide 2021-0 No 1mg 10 mg 5-02 tablet 00:00: 00 fenofibrate 2021-0 No 1mg 120 mg 5-02 tablet 00:00: 00 rosuvastati 2021-0 No 1mg n 5 mg 5-02 tablet 00:00: 00 lisinopril 2021-0 No 1mg 2.5 mg 5-02 tablet 00:00: 00 ProAir HFA 2021-0 No 2mcg/ac 90 4-29 tuation mcg/actuati 00:00: on aerosol 00 inhaler loratadine 2021-0 No 1mg 10 mg 4-29 tablet 00:00: 00 Tradjenta 5 1-0 No 1mg mg tablet 4-29 00:00: 00 metformin 2021-0 No 1mg 1,000 mg 4-29 tablet 00:00: 00 gemfibrozil 2021-0 No 1mg 600 mg 4-29 tablet 00:00: 00 ProAir HFA 2021-0 No 2mcg/ac 90 4-29 tuation mcg/actuati 00:00: on aerosol 00 inhaler loratadine 2021-0 No 1mg 10 mg 4-29 tablet 00:00: 00 Tradjenta 5 2021-0 No 1mg mg tablet 4-29 00:00: 00 metformin 2021-0 No 1mg 1,000 mg 4-29 tablet 00:00: 00 gemfibrozil 2021-0 No 1mg 600 mg 4-29 tablet 00:00: 00 ProAir HFA 2021-0 No 2mcg/ac 90 4-29 tuation mcg/actuati 00:00: on aerosol 00 inhaler loratadine 2021-0 No 1mg 10 mg 4-29 tablet 00:00: 00 Tradjenta 5 2021-0 No 1mg mg tablet 4-29 00:00: 00 metformin 2021-0 No 1mg 1,000 mg 4-29 tablet 00:00: 00 gemfibrozil 2021-0 No 1mg 600 mg 4-29 tablet 00:00: 00 ProAir HFA 2021-0 No 2mcg/ac 90 4-29 tuation mcg/actuati 00:00: on aerosol 00 inhaler loratadine 2021-0 No 1mg 10 mg 4-29 tablet 00:00: 00 Tradjenta 5 1-0 No 1mg mg tablet 4-29 00:00: 00 metformin 2021-0 No 1mg 1,000 mg 4-29 tablet 00:00: 00 gemfibrozil 2021-0 No 1mg 600 mg 4-29 tablet 00:00: 00 ProAir HFA 1-0 No 2mcg/ac 90 4-29 tuation mcg/actuati 00:00: on aerosol 00 inhaler loratadine 2021-0 No 1mg 10 mg 4-29 tablet 00:00: 00 Tradjenta 5 1-0 No 1mg mg tablet 4-29 00:00: 00 metformin 2021-0 No 1mg 1,000 mg 4-29 tablet 00:00: 00 gemfibrozil 2021-0 No 1mg 600 mg 4-29 tablet 00:00: 00 ProAir HFA 1-0 No 2mcg/ac 90 4-29 tuation mcg/actuati 00:00: on aerosol 00 inhaler loratadine 2021-0 No 1mg 10 mg 4-29 tablet 00:00: 00 Tradjenta 5 1-0 No 1mg mg tablet 4-29 00:00: 00 metformin 2021-0 No 1mg 1,000 mg 4-29 tablet 00:00: 00 gemfibrozil 2021-0 No 1mg 600 mg 4-29 tablet 00:00: 00 loratadine 2021-0 No 1mg 10 mg 2-24 tablet 00:00: 00 Tradjenta 5 2021-0 No 1mg mg tablet 2-24 00:00: 00 gemfibrozil 2021-0 No 1mg 600 mg 2-24 tablet 00:00: 00 metformin 2021-0 No 1mg 1,000 mg 2-24 tablet 00:00: 00 loratadine 2021-0 No 1mg 10 mg 2-24 tablet 00:00: 00 Tradjenta 5 1-0 No 1mg mg tablet 2-24 00:00: 00 gemfibrozil 2021-0 No 1mg 600 mg 2-24 tablet 00:00: 00 metformin 2021-0 No 1mg 1,000 mg 2-24 tablet 00:00: 00 loratadine 2021-0 No 1mg 10 mg 2-24 tablet 00:00: 00 Tradjenta 5 1-0 No 1mg mg tablet 2-24 00:00: 00 gemfibrozil 2021-0 No 1mg 600 mg 2-24 tablet 00:00: 00 metformin 2021-0 No 1mg 1,000 mg 2-24 tablet 00:00: 00 loratadine 2021-0 No 1mg 10 mg 2-24 tablet 00:00: 00 Tradjenta 5 1-0 No 1mg mg tablet 2-24 00:00: 00 gemfibrozil 1-0 No 1mg 600 mg 2-24 tablet 00:00: 00 metformin 2021-0 No 1mg 1,000 mg 2-24 tablet 00:00: 00 loratadine 2021-0 No 1mg 10 mg 2-24 tablet 00:00: 00 Tradjenta 5 1-0 No 1mg mg tablet 2-24 00:00: 00 gemfibrozil 2021-0 No 1mg 600 mg 2-24 tablet 00:00: 00 metformin 2021-0 No 1mg 1,000 mg 2-24 tablet 00:00: 00 loratadine 2021-0 No 1mg 10 mg 2-24 tablet 00:00: 00 Tradjenta 5 1-0 No 1mg mg tablet 2-24 00:00: 00 gemfibrozil 2021-0 No 1mg 600 mg 2-24 tablet 00:00: 00 metformin 2021-0 No 1mg 1,000 mg 2-24 tablet 00:00: 00 gemfibrozil 2020-1 No 1mg 600 mg 2-15 tablet 00:00: 00 gemfibrozil 2020-1 No 1mg 600 mg 2-15 tablet 00:00: 00 gemfibrozil 2020-1 No 1mg 600 mg 2-15 tablet 00:00: 00 gemfibrozil 2020-1 No 1mg 600 mg 2-15 tablet 00:00: 00 gemfibrozil 2019- No 1mg 600 mg 2-15 tablet 00:00: 00 gemfibrozil 2019- No 1mg 600 mg 2-15 tablet 00:00: 00 ProAir HFA 2019-06 No 2mcg/ac 90 2-04 tuation mcg/actuati 00:00: on aerosol 00 inhaler Advair 2019-06 No 1mcg/do Diskus 100 2-04 se mcg-50 00:00: mcg/dose 00 powder for inhalation loratadine- 2019-06 No 1mg pseudoephed 2-04 rine ER 10 00:00: mg-240 mg 00 tablet,exte nded [id number] loratadine 2019-06 No 1mg 10 mg 2-04 tablet 00:00: 00 Tradjenta 5 2019-06 No 1mg mg tablet 2-04 00:00: 00 metformin 2019- No 1mg 1,000 mg 2-04 tablet 00:00: 00 gemfibrozil 2019-06 No 1mg 600 mg 2-04 tablet 00:00: 00 ibuprofen 2019- No 1mg 800 mg 2-04 tablet 00:00: 00 ProAir HFA 2019-06 No 2mcg/ac 90 2-04 tuation mcg/actuati 00:00: on aerosol 00 inhaler Advair 2019-06 No 1mcg/do Diskus 100 2-04 se mcg-50 00:00: mcg/dose 00 powder for inhalation loratadine- 2019-06 No 1mg pseudoephed 2-04 rine ER 10 00:00: mg-240 mg 00 tablet,exte nded [id number] loratadine 2019-06 No 1mg 10 mg 2-04 tablet 00:00: 00 Tradjenta 5 2019-06 No 1mg mg tablet 2-04 00:00: 00 metformin 2019- No 1mg 1,000 mg 2-04 tablet 00:00: 00 gemfibrozil 2019- No 1mg 600 mg 2-04 tablet 00:00: 00 ibuprofen 2019-1 No 1mg 800 mg 2-04 tablet 00:00: 00 ProAir HFA 2019-06 No 2mcg/ac 90 2-04 tuation mcg/actuati 00:00: on aerosol 00 inhaler Advair 2019-06 No 1mcg/do Diskus 100 2-04 se mcg-50 00:00: mcg/dose 00 powder for inhalation loratadine- 2019-06 No 1mg pseudoephed 2-04 rine ER 10 00:00: mg-240 mg 00 tablet,exte nded [id number] loratadine 2019-06 No 1mg 10 mg 2-04 tablet 00:00: 00 Tradjenta 5 2019-06 No 1mg mg tablet 2-04 00:00: 00 metformin 2019-06 No 1mg 1,000 mg 2-04 tablet 00:00: 00 gemfibrozil 2019-06 No 1mg 600 mg 2-04 tablet 00:00: 00 ibuprofen 2019-06 No 1mg 800 mg 2-04 tablet 00:00: 00 ProAir HFA 2019-06 No 2mcg/ac 90 2-04 tuation mcg/actuati 00:00: on aerosol 00 inhaler Advair 2019-06 No 1mcg/do Diskus 100 2-04 se mcg-50 00:00: mcg/dose 00 powder for inhalation loratadine- 2019-06 No 1mg pseudoephed 2-04 rine ER 10 00:00: mg-240 mg 00 tablet,exte nded [id number] loratadine 2019-06 No 1mg 10 mg 2-04 tablet 00:00: 00 Tradjenta 5 2019-06 No 1mg mg tablet 2-04 00:00: 00 metformin 2019-06 No 1mg 1,000 mg 2-04 tablet 00:00: 00 gemfibrozil 2019-06 No 1mg 600 mg 2-04 tablet 00:00: 00 ibuprofen 2019-06 No 1mg 800 mg 2-04 tablet 00:00: 00 ProAir HFA 2019-06 No 2mcg/ac 90 2-04 tuation mcg/actuati 00:00: on aerosol 00 inhaler Advair 2019-06 No 1mcg/do Diskus 100 2-04 se mcg-50 00:00: mcg/dose 00 powder for inhalation loratadine- 2019-06 No 1mg pseudoephed 2-04 rine ER 10 00:00: mg-240 mg 00 tablet,exte nded [id number] loratadine 2019-06 No 1mg 10 mg 2-04 tablet 00:00: 00 Tradjenta 5 2020-1 No 1mg mg tablet 2-04 00:00: 00 metformin 2020-1 No 1mg 1,000 mg 2-04 tablet 00:00: 00 gemfibrozil 2019-1 No 1mg 600 mg 2-04 tablet 00:00: 00 ibuprofen 2020-1 No 1mg 800 mg 2-04 tablet 00:00: 00 ProAir HFA 2019- No 2mcg/ac 90 2-04 tuation mcg/actuati 00:00: on aerosol inhaler Advair 2019- No 1mcg/do Diskus 100 2-04 se mcg-50 00:00: mcg/dose 00 powder for inhalation loratadine- 2019-06 No 1mg pseudoephed 2-04 rine ER 10 00:00: mg-240 mg 00 tablet,exte nded [id number] loratadine 2019- No 1mg 10 mg 2-04 tablet 00:00: 00 Tradjenta 5 2019- No 1mg mg tablet 2-04 00:00: 00 metformin 2019- No 1mg 1,000 mg 2-04 tablet 00:00: 00 gemfibrozil 2019- No 1mg 600 mg 2-04 tablet 00:00: 00 ibuprofen 2019- No 1mg 800 mg 2-04 tablet 00:00: 00 ProAir HFA 2019- No 2mcg/ac 90 1-12 tuation mcg/actuati 00:00: on aerosol inhaler ProAir HFA 2019- No 2mcg/ac 90 1-12 tuation mcg/actuati 00:00: on aerosol inhaler Advair 2019- No 1mcg/do Diskus 100 1-12 se mcg-50 00:00: mcg/dose 00 powder for inhalation Advair 2019- No 1mcg/do Diskus 100 1-12 se mcg-50 00:00: mcg/dose 00 powder for inhalation ProAir HFA 2019- No 2mcg/ac 90 1-12 tuation mcg/actuati 00:00: on aerosol inhaler Advair 2019-06 No 1mcg/do Diskus 100 1-12 se mcg-50 00:00: mcg/dose 00 powder for inhalation ProAir HFA 2019-06 No 2mcg/ac 90 1-12 tuation mcg/actuati 00:00: on aerosol inhaler Advair 2019-06 No 1mcg/do Diskus 100 1-12 se mcg-50 00:00: mcg/dose 00 powder for inhalation ProAir HFA 2019-06 No 2mcg/ac 90 1-12 tuation mcg/actuati 00:00: on aerosol 00 inhaler Advair 2019- No 1mcg/do Diskus 100 1-12 se mcg-50 00:00: mcg/dose 00 powder for inhalation ProAir HFA 2019-06 No 2mcg/ac 90 1-12 tuation mcg/actuati 00:00: on aerosol 00 inhaler Advair 2019-06 No 1mcg/do Diskus 100 1-12 se mcg-50 00:00: mcg/dose 00 powder for inhalation loratadine- 2019-06 No 1mg pseudoephed 0-13 rine ER 10 00:00: mg-240 mg 00 tablet,exte nded [id number] loratadine 2019-06 No 1mg 10 mg 0-13 tablet 00:00: 00 loratadine2019-06 No 1mg pseudoephed 0-13 rine ER 10 00:00: mg-240 mg 00 tablet,exte nded [id number] loratadine 2019-06 No 1mg 10 mg 0-13 tablet 00:00: 00 loratadine- 2019-06 No 1mg pseudoephed 0-13 rine ER 10 00:00: mg-240 mg 00 tablet,exte nded [id number] loratadine 2019-06 No 1mg 10 mg 0-13 tablet 00:00: 00 loratadine- 2019-06 No 1mg pseudoephed 0-13 rine ER 10 00:00: mg-240 mg 00 tablet,exte nded [id number] loratadine 2019-06 No 1mg 10 mg 0-13 tablet 00:00: 00 loratadine- 2019-06 No 1mg pseudoephed 0-13 rine ER 10 00:00: mg-240 mg 00 tablet,exte nded [id number] loratadine 2019- No 1mg 10 mg 0-13 tablet 00:00: 00 loratadine- 2019-06 No 1mg pseudoephed 0-13 rine ER 10 00:00: mg-240 mg 00 tablet,exte nded [id number] loratadine 2020-1 No 1mg 10 mg 0-13 tablet 00:00: 00 Tradmikynta 5 2019-1 No 1mg mg tablet 0-09 00:00: 00 Tradmikynta 5 2019-1 No 1mg mg tablet 0-09 00:00: 00 Tradmikynta 5 2019-1 No 1mg mg tablet 0-09 00:00: 00 Tradmikynta 5 2019-1 No 1mg mg tablet 0-09 00:00: 00 Tradmikynta 5 2019-1 No 1mg mg tablet 0-09 00:00: 00 Tradmikynta 5 2019-1 No 1mg mg tablet 0-09 00:00: 00 Januvia 100 2019-1 No 1mg mg tablet 0-06 00:00: 00 metformin 2019-1 No 1mg 1,000 mg 0-06 tablet 00:00: 00 gemfibrozil 2020-1 No 1mg 600 mg 0-06 tablet 00:00: 00 Januvia 100 2019-1 No 1mg mg tablet 0-06 00:00: 00 metformin 2019-1 No 1mg 1,000 mg 0-06 tablet 00:00: 00 gemfibrozil 2019-1 No 1mg 600 mg 0-06 tablet 00:00: 00 Januvia 100 2019-1 No 1mg mg tablet 0-06 00:00: 00 metformin 2019-1 No 1mg 1,000 mg 0-06 tablet 00:00: 00 gemfibrozil 2020-1 No 1mg 600 mg 0-06 tablet 00:00: 00 Januvia 100 2019-1 No 1mg mg tablet 0-06 00:00: 00 metformin 2019-1 No 1mg 1,000 mg 0-06 tablet 00:00: 00 gemfibrozil 2019-1 No 1mg 600 mg 0-06 tablet 00:00: 00 Januvia 100 2019-1 No 1mg mg tablet 0-06 00:00: 00 metformin 2020-1 No 1mg 1,000 mg 0-06 tablet 00:00: 00 gemfibrozil 2020-1 No 1mg 600 mg 0-06 tablet 00:00: 00 Januvia 100 2019-1 No 1mg mg tablet 0-06 00:00: 00 metformin 2020-1 No 1mg 1,000 mg 0-06 tablet 00:00: 00 gemfibrozil 2020-1 No 1mg 600 mg 0-06 tablet 00:00: 00 loratadine 2020-0 No 1mg 10 mg 9-04 tablet 00:00: 00 loratadine 2020-0 No 1mg 10 mg 9-04 tablet 00:00: 00 loratadine 2020-0 No 1mg 10 mg 9-04 tablet 00:00: 00 loratadine 2020-0 No 1mg 10 mg 9-04 tablet 00:00: 00 loratadine 2020-0 No 1mg 10 mg 9-04 tablet 00:00: 00 loratadine 2020-0 No 1mg 10 mg 9-04 tablet 00:00: 00 amoxicillin 2020-0 No 1mg 875 mg 8-25 tablet 00:00: 00 amoxicillin 2020-0 No 1mg 875 mg 8-25 tablet 00:00: 00 amoxicillin 2020-0 No 1mg 875 mg 8-25 tablet 00:00: 00 amoxicillin 2020-0 No 1mg 875 mg 8-25 tablet 00:00: 00 amoxicillin 2020-0 No 1mg 875 mg 8-25 tablet 00:00: 00 amoxicillin 2020-0 No 1mg 875 mg 8-25 tablet 00:00: 00 metformin 2020-0 No 1mg 1,000 mg 8-10 tablet 00:00: 00 ibuprofen 2020-0 No 1mg 800 mg 8-10 tablet 00:00: 00 metformin 2020-0 No 1mg 1,000 mg 8-10 tablet 00:00: 00 ibuprofen 2020-0 No 1mg 800 mg 8-10 tablet 00:00: 00 metformin 2020-0 No 1mg 1,000 mg 8-10 tablet 00:00: 00 ibuprofen 2020-0 No 1mg 800 mg 8-10 tablet 00:00: 00 metformin 2020-0 No 1mg 1,000 mg 8-10 tablet 00:00: 00 ibuprofen 2020-0 No 1mg 800 mg 8-10 tablet 00:00: 00 metformin 2020-0 No 1mg 1,000 mg 8-10 tablet 00:00: 00 ibuprofen 2020-0 No 1mg 800 mg 8-10 tablet 00:00: 00 metformin 2020-0 No 1mg 1,000 mg 8-10 tablet 00:00: 00 ibuprofen 2020-0 No 1mg 800 mg 8-10 tablet 00:00: 00 ProAir HFA 2020-0 No 2mcg/ac 90 7-30 tuation mcg/actuati 00:00: on aerosol 00 inhaler prednisone 2020-0 No 1mg 50 mg 7-30 tablet 00:00: 00 ProAir HFA 2020-0 No 2mcg/ac 90 7-30 tuation mcg/actuati 00:00: on aerosol 00 inhaler prednisone 2020-0 No 1mg 50 mg 7-30 tablet 00:00: 00 ProAir HFA 2020-0 No 2mcg/ac 90 7-30 tuation mcg/actuati 00:00: on aerosol 00 inhaler prednisone 2020-0 No 1mg 50 mg 7-30 tablet 00:00: 00 ProAir HFA 2020-0 No 2mcg/ac 90 7-30 tuation mcg/actuati 00:00: on aerosol 00 inhaler prednisone 2020-0 No 1mg 50 mg 7-30 tablet 00:00: 00 ProAir HFA 2020-0 No 2mcg/ac 90 7-30 tuation mcg/actuati 00:00: on aerosol 00 inhaler prednisone 2020-0 No 1mg 50 mg 7-30 tablet 00:00: 00 ProAir HFA 2020-0 No 2mcg/ac 90 7-30 tuation mcg/actuati 00:00: on aerosol 00 inhaler prednisone 2020-0 No 1mg 50 mg 7-30 tablet 00:00: 00 promethazin 2020-0 No 5mg/5 e-DM 6.25 7-18 mL mg-15 mg/5 00:00: mL oral 00 syrup promethazin 2020-0 No 5mg/5 e-DM 6.25 7-18 mL mg-15 mg/5 00:00: mL oral 00 syrup promethazin 2020-0 No 5mg/5 e-DM 6.25 7-18 mL mg-15 mg/5 00:00: mL oral 00 syrup promethazin 2020-0 No 5mg/5 e-DM 6.25 7-18 mL mg-15 mg/5 00:00: mL oral 00 syrup promethazin 2020-0 No 5mg/5 e-DM 6.25 7-18 mL mg-15 mg/5 00:00: mL oral 00 syrup promethazin 2020-0 No 5mg/5 e-DM 6.25 7-18 mL mg-15 mg/5 00:00: mL oral 00 syrup ProAir HFA 2020-0 No 1mcg/ac 90 7-02 tuation mcg/actuati 00:00: on aerosol 00 inhaler ProAir HFA 2020-0 No 1mcg/ac 90 7-02 tuation mcg/actuati 00:00: on aerosol 00 inhaler ProAir HFA 2020-0 No 1mcg/ac 90 7-02 tuation mcg/actuati 00:00: on aerosol 00 inhaler ProAir HFA 2020-0 No 1mcg/ac 90 7-02 tuation mcg/actuati 00:00: on aerosol 00 inhaler ProAir HFA 2020-0 No 1mcg/ac 90 7-02 tuation mcg/actuati 00:00: on aerosol 00 inhaler ProAir HFA 2020-0 No 1mcg/ac 90 7-02 tuation mcg/actuati 00:00: on aerosol 00 inhaler Advair 2020-0 No 1mcg/do Diskus 100 6-09 se mcg-50 00:00: mcg/dose 00 powder for inhalation loratadine 2020-0 No 1mg 10 mg 6-09 tablet 00:00: 00 metformin 2020-0 No 1mg 1,000 mg 6-09 tablet 00:00: 00 Advair 2020-0 No 1mcg/do Diskus 100 6-09 se mcg-50 00:00: mcg/dose 00 powder for inhalation loratadine 2020-0 No 1mg 10 mg 6-09 tablet 00:00: 00 metformin 2020-0 No 1mg 1,000 mg 6-09 tablet 00:00: 00 Advair 2020-0 No 1mcg/do Diskus 100 6-09 se mcg-50 00:00: mcg/dose 00 powder for inhalation loratadine 2020-0 No 1mg 10 mg 6-09 tablet 00:00: 00 metformin 2020-0 No 1mg 1,000 mg 6-09 tablet 00:00: 00 Advair 2020-0 No 1mcg/do Diskus 100 6-09 se mcg-50 00:00: mcg/dose 00 powder for inhalation loratadine 2020-0 No 1mg 10 mg 6-09 tablet 00:00: 00 metformin 2020-0 No 1mg 1,000 mg 6-09 tablet 00:00: 00 Advair 2020-0 No 1mcg/do Diskus 100 6-09 se mcg-50 00:00: mcg/dose 00 powder for inhalation loratadine 2020-0 No 1mg 10 mg 6-09 tablet 00:00: 00 metformin 2020-0 No 1mg 1,000 mg 6-09 tablet 00:00: 00 Advair 2020-0 No 1mcg/do Diskus 100 6-09 se mcg-50 00:00: mcg/dose 00 powder for inhalation loratadine 2020-0 No 1mg 10 mg 6-09 tablet 00:00: 00 metformin 2020-0 No 1mg 1,000 mg 6-09 tablet 00:00: 00 ondansetron 2020-0 No 1mg 4 mg 5-22 disintegrat 00:00: ing tablet 00 ondansetron 2020-0 No 1mg 4 mg 5-22 disintegrat 00:00: ing tablet 00 ondansetron 2020-0 No 1mg 4 mg 5-22 disintegrat 00:00: ing tablet 00 ondansetron 2020-0 No 1mg 4 mg 5-22 disintegrat 00:00: ing tablet 00 ondansetron 2020-0 No 1mg 4 mg 5-22 disintegrat 00:00: ing tablet 00 ondansetron 2020-0 No 1mg 4 mg 5-22 disintegrat 00:00: ing tablet 00 indomethaci 2020-0 No 1mg n 50 mg 4-22 capsule 00:00: 00 indomethaci 2020-0 No 1mg n 50 mg 4-22 capsule 00:00: 00 indomethaci 2020-0 No 1mg n 50 mg 4-22 capsule 00:00: 00 indomethaci 2020-0 No 1mg n 50 mg 4-22 capsule 00:00: 00 indomethaci 2020-0 No 1mg n 50 mg 4-22 capsule 00:00: 00 indomethaci 2020-0 No 1mg n 50 mg 4-22 capsule 00:00: 00 Advair 2020-0 No 1mcg/do Diskus 100 3-30 se mcg-50 00:00: mcg/dose 00 powder for inhalation Advair 2020-0 No 1mcg/do Diskus 100 3-30 se mcg-50 00:00: mcg/dose 00 powder for inhalation Advair 2020-0 No 1mcg/do Diskus 100 3-30 se mcg-50 00:00: mcg/dose 00 powder for inhalation Advair 2020-0 No 1mcg/do Diskus 100 3-30 se mcg-50 00:00: mcg/dose 00 powder for inhalation Advair 2020-0 No 1mcg/do Diskus 100 3-30 se mcg-50 00:00: mcg/dose 00 powder for inhalation Advair 2020-0 No 1mcg/do Diskus 100 3-30 se mcg-50 00:00: mcg/dose 00 powder for inhalation pantoprazol 2020-0 No 1mg e 20 mg 3-06 tablet,anna 00:00: yed release 00 loratadine 2020-0 No 1mg 10 mg 3-06 tablet 00:00: 00 pantoprazol 2020-0 No 1mg e 20 mg 3-06 tablet,anna 00:00: yed release 00 loratadine 2020-0 No 1mg 10 mg 3-06 tablet 00:00: 00 pantoprazol 2020-0 No 1mg e 20 mg 3-06 tablet,anna 00:00: yed release 00 loratadine 2020-0 No 1mg 10 mg 3-06 tablet 00:00: 00 pantoprazol 2020-0 No 1mg e 20 mg 3-06 tablet,anna 00:00: yed release 00 loratadine 2020-0 No 1mg 10 mg 3-06 tablet 00:00: 00 pantoprazol 2020-0 No 1mg e 20 mg 3-06 tablet,anna 00:00: yed release 00 loratadine 2020-0 No 1mg 10 mg 3-06 tablet 00:00: 00 pantoprazol 2020-0 No 1mg e 20 mg 3-06 tablet,anna 00:00: yed release 00 loratadine 2020-0 No 1mg 10 mg 3-06 tablet 00:00: 00 ibuprofen 2020-0 No 1mg 800 mg 2-20 tablet 00:00: 00 methocarbam 2020-0 No 1mg ol 500 mg 2-20 tablet 00:00: 00 ibuprofen 2020-0 No 1mg 800 mg 2-20 tablet 00:00: 00 methocarbam 2020-0 No 1mg ol 500 mg 2-20 tablet 00:00: 00 ibuprofen 2020-0 No 1mg 800 mg 2-20 tablet 00:00: 00 methocarbam 2020-0 No 1mg ol 500 mg 2-20 tablet 00:00: 00 ibuprofen 2020-0 No 1mg 800 mg 2-20 tablet 00:00: 00 methocarbam 2020-0 No 1mg ol 500 mg 2-20 tablet 00:00: 00 ibuprofen 2020-0 No 1mg 800 mg 2-20 tablet 00:00: 00 methocarbam 2020-0 No 1mg ol 500 mg 2-20 tablet 00:00: 00 ibuprofen 2020-0 No 1mg 800 mg 2-20 tablet 00:00: 00 methocarbam 2020-0 No 1mg ol 500 mg 2-20 tablet 00:00: 00 Claritin 10 2020-0 No 1mg mg tablet 2-07 00:00: 00 pantoprazol 2020-0 No 1mg e 20 mg 2-07 tablet,anna 00:00: yed release 00 ondansetron 2020-0 No 1mg 4 mg 2-07 disintegrat 00:00: ing tablet 00 Claritin 10 2020-0 No 1mg mg tablet 2-07 00:00: 00 pantoprazol 2020-0 No 1mg e 20 mg 2-07 tablet,anna 00:00: yed release 00 ondansetron 2020-0 No 1mg 4 mg 2-07 disintegrat 00:00: ing tablet 00 Claritin 10 2020-0 No 1mg mg tablet 2-07 00:00: 00 pantoprazol 2020-0 No 1mg e 20 mg 2-07 tablet,anna 00:00: yed release 00 ondansetron 2020-0 No 1mg 4 mg 2-07 disintegrat 00:00: ing tablet 00 Claritin 10 2020-0 No 1mg mg tablet 2-07 00:00: 00 pantoprazol 2020-0 No 1mg e 20 mg 2-07 tablet,anna 00:00: yed release 00 ondansetron 2020-0 No 1mg 4 mg 2-07 disintegrat 00:00: ing tablet 00 Claritin 10 2020-0 No 1mg mg tablet 2-07 00:00: 00 pantoprazol 2020-0 No 1mg e 20 mg 2-07 tablet,anna 00:00: yed release 00 ondansetron 2020-0 No 1mg 4 mg 2-07 disintegrat 00:00: ing tablet 00 Claritin 10 2020-0 No 1mg mg tablet 2-07 00:00: 00 pantoprazol 2020-0 No 1mg e 20 mg 2-07 tablet,anna 00:00: yed release 00 ondansetron 2020-0 No 1mg 4 mg 2-07 disintegrat 00:00: ing tablet 00 ProAir HFA 2020-0 No 1mcg/ac 90 1-25 tuation mcg/actuati 00:00: on aerosol 00 inhaler pioglitazon 2020-0 No 1mg e 45 mg 1-25 tablet 00:00: 00 metformin 2020-0 No 1mg 1,000 mg 1-25 tablet 00:00: 00 atorvastati 2020-0 No 1mg n 20 mg 1-25 tablet 00:00: 00 ondansetron 2020-0 No 1mg 4 mg 1-25 disintegrat 00:00: ing tablet 00 duloxetine 2020-0 No 1mg 60 mg 1-25 capsule,del 00:00: ayed 00 release ProAir HFA 2020-0 No 1mcg/ac 90 1-25 tuation mcg/actuati 00:00: on aerosol 00 inhaler pioglitazon 2020-0 No 1mg e 45 mg 1-25 tablet 00:00: 00 metformin 2020-0 No 1mg 1,000 mg 1-25 tablet 00:00: 00 atorvastati 2020-0 No 1mg n 20 mg 1-25 tablet 00:00: 00 ondansetron 2020-0 No 1mg 4 mg 1-25 disintegrat 00:00: ing tablet 00 duloxetine 2020-0 No 1mg 60 mg 1-25 capsule,del 00:00: ayed 00 release ProAir HFA 2020-0 No 1mcg/ac 90 1-25 tuation mcg/actuati 00:00: on aerosol 00 inhaler pioglitazon 2020-0 No 1mg e 45 mg 1-25 tablet 00:00: 00 metformin 2020-0 No 1mg 1,000 mg 1-25 tablet 00:00: 00 atorvastati 2020-0 No 1mg n 20 mg 1-25 tablet 00:00: 00 ondansetron 2020-0 No 1mg 4 mg 1-25 disintegrat 00:00: ing tablet 00 duloxetine 2020-0 No 1mg 60 mg 1-25 capsule,del 00:00: ayed 00 release ProAir HFA 2020-0 No 1mcg/ac 90 1-25 tuation mcg/actuati 00:00: on aerosol 00 inhaler pioglitazon 2020-0 No 1mg e 45 mg 1-25 tablet 00:00: 00 metformin 2020-0 No 1mg 1,000 mg 1-25 tablet 00:00: 00 atorvastati 2020-0 No 1mg n 20 mg 1-25 tablet 00:00: 00 ondansetron 2020-0 No 1mg 4 mg 1-25 disintegrat 00:00: ing tablet 00 duloxetine 2020-0 No 1mg 60 mg 1-25 capsule,del 00:00: ayed 00 release ProAir HFA 2020-0 No 1mcg/ac 90 1-25 tuation mcg/actuati 00:00: on aerosol 00 inhaler pioglitazon 2020-0 No 1mg e 45 mg 1-25 tablet 00:00: 00 metformin 2020-0 No 1mg 1,000 mg 1-25 tablet 00:00: 00 atorvastati 2020-0 No 1mg n 20 mg 1-25 tablet 00:00: 00 ondansetron 2020-0 No 1mg 4 mg 1-25 disintegrat 00:00: ing tablet 00 duloxetine 2020-0 No 1mg 60 mg 1-25 capsule,del 00:00: ayed 00 release ProAir HFA 2020-0 No 1mcg/ac 90 1-25 tuation mcg/actuati 00:00: on aerosol 00 inhaler pioglitazon 2020-0 No 1mg e 45 mg 1-25 tablet 00:00: 00 metformin 2020-0 No 1mg 1,000 mg 1-25 tablet 00:00: 00 atorvastati 2020-0 No 1mg n 20 mg 1-25 tablet 00:00: 00 ondansetron 2020-0 No 1mg 4 mg 1-25 disintegrat 00:00: ing tablet 00 duloxetine 2020-0 No 1mg 60 mg 1-25 capsule,del 00:00: ayed 00 release metFORMIN 2018- Yes 1000mg Take 1,000 [facility] 1,000 mg 2-03 mg by [facility] tablet 19:19: mouth 2 [place] 20 (two) Medical times [facility] daily with meals. levonorgest 2018- Yes [id number] 1{tbl} Take 1 [facility] rel-ethinyl 2-03 tablet by [facility] estradiol 00:00: mouth [place] (SRONYX) 00 daily. Medical 0.1-20 [facility] mg-mcg per tablet ondansetron 2018-06 No 1mg 4 mg 1-08 disintegrat 00:00: ing tablet 00 Tamiflu 75 2018-06 No 1mg mg capsule 108 00:00: 00 ondansetron 2018- No 1mg 4 mg 1-08 disintegrat 00:00: ing tablet Tamiflu 2018-06 No 1mg mg capsule 108 00:00: 00 ondansetron 2018- No 1mg 4 mg 1-08 disintegrat [facility]:00: [facility] No [facility] capsule 108 00:00: 00 ondansetron 2018- No 1mg 4 mg 1-08 disintegrat 00:00: ing tablet Tamiflu 2018-06 No 1mg mg capsule 1 00:00: 00 ondansetron 2018- No 1mg 4 mg 1 disintegrat 00:00: ing tablet Tamiflu 2018-06 No 1mg mg capsule 06-15 00:00: 00 ondansetron 2018- No 1mg 4 mg 1 disintegrat 00:00: [facility] No [facility] mg capsule 1 00:00: 00 metoclopram 2018- No 1mg [place] 10 mg 0-16 tablet 00:00: 00 meclizine 2018- No 1mg 12.5 mg 0-16 tablet 00:00: 00 metoclopram 2018- No 1mg [place] 10 mg 0-16 tablet 00:00: 00 meclizine 2018- No 1mg 12.5 mg 0-16 tablet 00:00: 00 metoclopram 2018- No 1mg [place] 10 mg 0-16 tablet 00:00: 00 meclizine 2018- No 1mg 12.5 mg 0-16 tablet 00:00: 00 metoclopram 2018-1 No 1mg [place] 10 mg 0-16 tablet 00:00: 00 meclizine 2018- No 1mg 12.5 mg 0-16 tablet 00:00: 00 metoclopram 2018-1 No 1mg [place] 10 mg 0-16 tablet 00:00: 00 meclizine 2018- No 1mg 12.5 mg 0-16 tablet 00:00: 00 metoclopram 2018-1 No 1mg [place] 10 mg 0-16 tablet 00:00: 00 meclizine 2018- No 1mg 12.5 mg 0-16 tablet 00:00: 00 ProAir HFA 2019-0 No 1mcg/ac 90 9-24 tuation mcg/actuati 00:00: on aerosol 00 inhaler Advair 2019-0 No 1mcg/do Diskus 100 9-24 se mcg-50 00:00: mcg/dose 00 powder for inhalation metformin 2019-0 No 1mg 1,000 mg 9-24 tablet 00:00: 00 naproxen 2019-0 No 1mg 500 mg 9-24 tablet 00:00: 00 ProAir HFA 2019-0 No 1mcg/ac 90 9-24 tuation mcg/actuati 00:00: on aerosol 00 inhaler Advair 2019-0 No 1mcg/do Diskus 100 9-24 se mcg-50 00:00: mcg/dose 00 powder for inhalation metformin 2019-0 No 1mg 1,000 mg 9-24 tablet 00:00: 00 naproxen 2019-0 No 1mg 500 mg 9-24 tablet 00:00: 00 ProAir HFA 2019-0 No 1mcg/ac 90 9-24 tuation mcg/actuati 00:00: on aerosol 00 inhaler Advair 2019-0 No 1mcg/do Diskus 100 9-24 se mcg-50 00:00: mcg/dose 00 powder for inhalation metformin 2019-0 No 1mg 1,000 mg 9-24 tablet 00:00: 00 naproxen 2019-0 No 1mg 500 mg 9-24 tablet 00:00: 00 ProAir HFA 2019-0 No 1mcg/ac 90 9-24 tuation mcg/actuati 00:00: on aerosol 00 inhaler Advair 2019-0 No 1mcg/do Diskus 100 9-24 se mcg-50 00:00: mcg/dose 00 powder for inhalation metformin 2019-0 No 1mg 1,000 mg 9-24 tablet 00:00: 00 naproxen 2019-0 No 1mg 500 mg 9-24 tablet 00:00: 00 ProAir HFA 2019-0 No 1mcg/ac 90 9-24 tuation mcg/actuati 00:00: on aerosol 00 inhaler Advair 2019-0 No 1mcg/do Diskus 100 9-24 se mcg-50 00:00: mcg/dose 00 powder for inhalation metformin 2019-0 No 1mg 1,000 mg 9-24 tablet 00:00: 00 naproxen 2019-0 No 1mg 500 mg 9-24 tablet 00:00: 00 ProAir HFA 2019-0 No 1mcg/ac 90 9-24 tuation mcg/actuati 00:00: on aerosol 00 inhaler Advair 2019-0 No 1mcg/do Diskus 100 9-24 se mcg-50 00:00: mcg/dose 00 powder for inhalation metformin 2019-0 No 1mg 1,000 mg 9-24 tablet 00:00: 00 naproxen 2019-0 No 1mg 500 mg 9-24 tablet 00:00: 00 prednisone 2019-0 No 1mg 10 mg 8-29 tablet 00:00: 00 Zofran 4 mg 2019-0 No 1mg tablet 02-03 00:00: 00 prednisone 2019-0 No 1mg 10 mg 8-29 tablet 00:00: 00 Zofran 4 mg 2019-0 No 1mg tablet 02-03 00:00: 00 prednisone 2019-0 No 1mg 10 mg 8-29 tablet 00:00: 00 Zofran 4 mg 2019-0 No 1mg tablet 02-03 00:00: 00 prednisone 2019-0 No 1mg 10 mg 8-29 tablet 00:00: 00 Zofran 4 mg 2019-0 No 1mg tablet 02-03 00:00: 00 prednisone 2019-0 No 1mg 10 mg 8-29 tablet 00:00: 00 Zofran 4 mg 2019-0 No 1mg tablet 02-03 00:00: 00 prednisone 2019-0 No 1mg 10 mg 8-29 tablet 00:00: 00 Zofran 4 mg 2019-0 No 1mg tablet 02-03 00:00: 00 ProAir HFA 2019-0 No 1mcg/ac 90 8-22 tuation mcg/actuati 00:00: on aerosol 00 inhaler ProAir HFA 2019-0 No 1mcg/ac 90 8-22 tuation mcg/actuati 00:00: on aerosol 00 inhaler ProAir HFA 2019-0 No 1mcg/ac 90 8-22 tuation mcg/actuati 00:00: on aerosol 00 inhaler ProAir HFA 2019-0 No 1mcg/ac 90 8-22 tuation mcg/actuati 00:00: on aerosol 00 inhaler ProAir HFA 2019-0 No 1mcg/ac 90 8-22 tuation mcg/actuati 00:00: on aerosol 00 inhaler ProAir HFA 2019-0 No 1mcg/ac 90 8-22 tuation mcg/actuati 00:00: on aerosol 00 inhaler metformin 2019-0 No 1mg 1,000 mg 7-17 tablet 00:00: 00 metformin 2019-0 No 1mg 1,000 mg 7-17 tablet 00:00: 00 metformin 2019-0 No 1mg 1,000 mg 7-17 tablet 00:00: 00 metformin 2019-0 No 1mg 1,000 mg 7-17 tablet 00:00: 00 metformin 2019-0 No 1mg 1,000 mg 7-17 tablet 00:00: 00 metformin 2019-0 No 1mg 1,000 mg 7-17 tablet 00:00: 00 ProAir HFA 2019-0 No 1mcg/ac 90 7-11 tuation mcg/actuati 00:00: on aerosol 00 inhaler loratadine 2019-0 No 1mg 10 mg 7-11 tablet 00:00: 00 ProAir HFA 2019-0 No 1mcg/ac 90 7-11 tuation mcg/actuati 00:00: on aerosol 00 inhaler loratadine 2019-0 No 1mg 10 mg 7-11 tablet 00:00: 00 ProAir HFA 2019-0 No 1mcg/ac 90 7-11 tuation mcg/actuati 00:00: on aerosol 00 inhaler loratadine 2019-0 No 1mg 10 mg 7-11 tablet 00:00: 00 ProAir HFA 2019-0 No 1mcg/ac 90 7-11 tuation mcg/actuati 00:00: on aerosol inhaler loratadine 2019-0 No 1mg 10 mg 7-11 tablet 00:00: 00 ProAir HFA 2019-0 No 1mcg/ac 90 7-11 tuation mcg/actuati 00:00: on aerosol 00 inhaler loratadine 2019-0 No 1mg 10 mg 7-11 tablet 00:00: 00 ProAir HFA 2019-0 No 1mcg/ac 90 7-11 tuation mcg/actuati 00:00: on aerosol 00 inhaler loratadine 2019-0 No 1mg 10 mg 7-11 tablet 00:00: 00 hydrOXYzine 2019-0 Yes 25mg Take 25 mg [facility] 25 mg 6-05 by mouth 2 ity of capsule 00:00: (two) [place] [id number] times Medical daily. [facility] triamcinolo 2018-0 No 1% ne 6-04 acetonide 00:00: 0.1 % 00 topical cream loratadine 2019-0 No 1mg 10 mg 6-04 tablet 00:00: 00 triamcinolo 2019-0 No 1% ne 6-04 acetonide 00:00: 0.1 % 00 topical cream loratadine 2019-0 No 1mg 10 mg 6-04 tablet 00:00: 00 triamcinolo 2019-0 No 1% ne 6-04 acetonide 00:00: 0.1 % 00 topical cream loratadine 2019-0 No 1mg 10 mg 6-04 tablet 00:00: 00 triamcinolo 2019-0 No 1% ne 6-04 acetonide 00:00: 0.1 % 00 topical cream loratadine 2019-0 No 1mg 10 mg 6-04 tablet 00:00: 00 triamcinolo 2019-0 No 1% ne 6-04 acetonide 00:00: 0.1 % 00 topical cream loratadine 2019-0 No 1mg 10 mg 6-04 tablet 00:00: 00 triamcinolo 2019-0 No 1% ne 6-04 acetonide 00:00: 0.1 % 00 topical cream loratadine 2018-0 No 1mg 10 mg 6-04 tablet 00:00: 00 triamcinolo 2019-0 Yes 1{dose} Apply 1 [facility] ne 6-04 Dose to [facility]y of acetonide 00:00[place] 0[place]1 % cream 00 area(s) 2 Med ical (two) Branch times daily as needed. pioglitazon 2019-0 Yes 45mg Take 45 mg [facility] e 45 mg 6-03 by mouth ity of tablet 00:00: daily. [place] [address] [facility] promethazin 2018-0 No 1mg e 12.5 mg 5-30 tablet 00:00: 00 promethazin 2019-0 No 1mg e 12.5 mg 5-30 tablet 00:00: 00 promethazin 2019-0 No 1mg e 12.5 mg 5-30 tablet 00:00: 00 promethazin 2019-0 No 1mg e 12.5 mg 5-30 tablet 00:00: 00 promethazin 2019-0 No 1mg e 12.5 mg 5-30 tablet 00:00: 00 promethazin 2019-0 No 1mg e 12.5 mg 5-30 tablet 00:00: 00 DULoxetine 2019-0 Yes 30mg Take 30 mg U nivers 30 mg 5-26 by mouth ity of capsule 00:00: daily. [address] ProAir HFA 2019-0 No 1mcg/ac 90 5-07 tuation mcg/actuati 00:00: on aerosol 00 inhaler indomethaci 2019-0 No 1mg n 50 mg 5-07 capsule 00:00: 00 ProAir HFA 2019-0 No 1mcg/ac 90 5-07 tuation mcg/actuati 00:00: on aerosol 00 inhaler indomethaci 2019-0 No 1mg n 50 mg 5-07 capsule 00:00: 00 ProAir HFA 2019-0 No 1mcg/ac 90 5-07 tuation mcg/actuati 00:00: on aerosol 00 inhaler indomethaci 2019-0 No 1mg n 50 mg 5-07 capsule 00:00: 00 ProAir HFA 2019-0 No 1mcg/ac 90 5-07 tuation mcg/actuati 00:00: on aerosol 00 inhaler indomethaci 2019-0 No 1mg n 50 mg 5-07 capsule 00:00: 00 ProAir HFA 2019-0 No 1mcg/ac 90 5-07 tuation mcg/actuati 00:00: on aerosol 00 inhaler indomethaci 2019-0 No 1mg n 50 mg 5-07 capsule 00:00: 00 ProAir HFA 2019-0 No 1mcg/ac 90 5-07 tuation mcg/actuati 00:00: on aerosol 00 inhaler indomethaci 2019-0 No 1mg n 50 mg 5-07 capsule 00:00: 00 triamcinolo 2019-0 No 1% ne 4-30 acetonide 00:00: 0.1 % 00 topical cream triamcinolo 2019-0 No 1% ne 4-30 acetonide 00:00: 0.1 % 00 topical cream triamcinolo 2019-0 No 1% ne 4-30 acetonide 00:00: 0.1 % 00 topical cream triamcinolo 2019-0 No 1% ne 4-30 acetonide 00:00: 0.1 % 00 topical cream triamcinolo 2019-0 No 1% ne 4-30 acetonide 00:00: 0.1 % 00 topical cream triamcinolo 2019-0 No 1% ne 4-30 acetonide 00:00: 0.1 % 00 topical cream metformin 2019-0 No 1mg 1,000 mg 3-28 tablet 00:00: 00 metformin 2019-0 No 1mg 1,000 mg 3-28 tablet 00:00: 00 metformin 2019-0 No 1mg 1,000 mg 3-28 tablet 00:00: 00 metformin 2019-0 No 1mg 1,000 mg 3-28 tablet 00:00: 00 metformin 2019-0 No 1mg 1,000 mg 3-28 tablet 00:00: 00 metformin 2019-0 No 1mg 1,000 mg 3-28 tablet 00:00: 00 metformin 2019-0 No 1mg 1,000 mg 2-26 tablet 00:00: 00 metformin 2019-0 No 1mg 1,000 mg 2-26 tablet 00:00: 00 metformin 2019-0 No 1mg 1,000 mg 2-26 tablet 00:00: 00 metformin 2019-0 No 1mg 1,000 mg 2-26 tablet 00:00: 00 metformin 2019-0 No 1mg 1,000 mg 2-26 tablet 00:00: 00 metformin 2019-0 No 1mg 1,000 mg 2-26 tablet 00:00: 00 LEVEMIR 2019-0 Yes 80U Inject 80 Unive rs FLEXTOUCH 1-30 Units into ity of U-100 00:00: the skin [place] INSULN 100 00 every Medical unit/mL (3 morning. Branc h mL) injection gabapentin 2018-0 Yes TAKE 1 Unive rs 300 mg 1-15 CAPSULE BY ity of capsule 00:00: MOUTH [place] 00 THREE Medical TIMES A Branch DAY prednisone 2017-1 No 1mg 20 mg 2-20 tablet 00:00: 00 Vitamin D2 2017-06 No 1unit 50,000 unit 2-20 capsule 00:00: 00 prednisone 2018- No 1mg 20 mg 2-20 tablet 00:00: 00 Vitamin D2 2017- No 1unit 50,000 unit 2-20 capsule 00:00: 00 prednisone 2018-1 No 1mg 20 mg 2-20 tablet 00:00: 00 Vitamin D2 2017- No 1unit 50,000 unit 2-20 capsule 00:00: 00 prednisone 2018- No 1mg 20 mg 2-20 tablet 00:00: 00 Vitamin D2 2017- No 1unit 50,000 unit 2-20 capsule 00:00: 00 prednisone 2018- No 1mg 20 mg 2-20 tablet 00:00: 00 Vitamin D2 2018- No 1unit 50,000 unit 2-20 capsule 00:00: 00 prednisone 2018- No 1mg 20 mg 2-20 tablet 00:00: 00 Vitamin D2 2018- No 1unit 50,000 unit 2-20 capsule 00:00: 00 indomethaci 2018- No 1mg n 50 mg 2-19 capsule 00:00: 00 indomethaci 2018- No 1mg n 50 mg 2-19 capsule 00:00: 00 indomethaci 2018- No 1mg n 50 mg 2-19 capsule 00:00: 00 indomethaci 2018- No 1mg n 50 mg 2-19 capsule 00:00: 00 indomethaci 2017- No 1mg n 50 mg 2-19 capsule 00:00: 00 indomethaci 2017- No 1mg n 50 mg 2-19 capsule 00:00: 00 meloxicam 2017- No 5mg 15 mg 0-17 tablet 00:00: 00 metformin 2017- No 1mg 1,000 mg 0-17 tablet 00:00: 00 meloxicam 2018- No 5mg 15 mg 0-17 tablet 00:00: 00 metformin 2018- No 1mg 1,000 mg 0-17 tablet 00:00: 00 meloxicam 2018- No 5mg 15 mg 0-17 tablet 00:00: 00 metformin 2017- No 1mg 1,000 mg 0-17 tablet 00:00: 00 meloxicam 2018- No 5mg 15 mg 0-17 tablet 00:00: 00 metformin 2017- No 1mg 1,000 mg 0-17 tablet 00:00: 00 meloxicam 2017- No 5mg 15 mg 0-17 tablet 00:00: 00 metformin 2018- No 1mg 1,000 mg 0-17 tablet 00:00: 00 meloxicam 2018- No 5mg 15 mg 0-17 tablet 00:00: 00 metformin 2017- No 1mg 1,000 mg 0-17 tablet 00:00: 00 metformin 2017- No 1mg 1,000 mg 0-04 tablet 00:00: 00 metformin 2017- No 1mg 1,000 mg 0-04 tablet 00:00: 00 metformin 2018-1 No 1mg 1,000 mg 0-04 tablet 00:00: 00 metformin 2018-1 No 1mg 1,000 mg 0-04 tablet 00:00: 00 metformin 2018-1 No 1mg 1,000 mg 0-04 tablet 00:00: 00 metformin 2018-1 No 1mg 1,000 mg 0-04 tablet 00:00: 00 metformin 2018-0 No 1mg 1,000 mg 9-19 tablet 00:00: 00 metformin 2018-0 No 1mg 1,000 mg 9-19 tablet 00:00: 00 metformin 2018-0 No 1mg 1,000 mg 9-19 tablet 00:00: 00 metformin 2018-0 No 1mg 1,000 mg 9-19 tablet 00:00: 00 metformin 2018-0 No 1mg 1,000 mg 9-19 tablet 00:00: 00 metformin 2018-0 No 1mg 1,000 mg 9-19 tablet 00:00: 00 neomycin-po 2018-0 No 4mg/mL- lymyxin-hyd 8-29 unit/mL rocort 3.5 00:00: -% mg-10,000 00 unit/mL-1 % ear drops,susp triamcinolo 2018-0 No 1% ne 8-29 acetonide 00:00: 0.1 % 00 topical cream triamcinolo 2018-0 No 1% ne 8-29 acetonide 00:00: 0.1 % 00 topical cream nifedipine 2018-0 No 1mg ER 30 mg 8-29 tablet,exte 00:00: nded 00 release loratadine 2018-0 No 1mg 10 mg 8-29 tablet 00:00: 00 prednisone 2018-0 No 1mg 20 mg 8-29 tablet 00:00: 00 amoxicillin 2018-0 No 1mg 500 mg 8-29 capsule 00:00: 00 gabapentin 2018-0 No 1mg 300 mg 8-29 capsule 00:00: 00 neomycin-po 2018-0 No 4mg/mL- lymyxin-hyd 8-29 unit/mL rocort 3.5 00:00: -% mg-10,000 00 unit/mL-1 % ear drops,susp triamcinolo 2018-0 No 1% ne 8-29 acetonide 00:00: 0.1 % 00 topical cream triamcinolo 2018-0 No 1% ne 8-29 acetonide 00:00: 0.1 % 00 topical cream nifedipine 2018-0 No 1mg ER 30 mg 8-29 tablet,exte 00:00: nded 00 release loratadine 2018-0 No 1mg 10 mg 8-29 tablet 00:00: 00 prednisone 2018-0 No 1mg 20 mg 8-29 tablet 00:00: 00 amoxicillin 2018-0 No 1mg 500 mg 8-29 capsule 00:00: 00 gabapentin 2018-0 No 1mg 300 mg 8-29 capsule 00:00: 00 neomycin-po 2018-0 No 4mg/mL- lymyxin-hyd 8-29 unit/mL rocort 3.5 00:00: -% mg-10,000 00 unit/mL-1 % ear drops,susp triamcinolo 2018-0 No 1% ne 8-29 acetonide 00:00: 0.1 % 00 topical cream triamcinolo 2018-0 No 1% ne 8-29 acetonide 00:00: 0.1 % 00 topical cream nifedipine 2018-0 No 1mg ER 30 mg 8-29 tablet,exte 00:00: nded 00 release loratadine 2018-0 No 1mg 10 mg 8-29 tablet 00:00: 00 prednisone 2018-0 No 1mg 20 mg 8-29 tablet 00:00: 00 amoxicillin 2018-0 No 1mg 500 mg 8-29 capsule 00:00: 00 gabapentin 2018-0 No 1mg 300 mg 8-29 capsule 00:00: 00 neomycin-po 2018-0 No 4mg/mL- lymyxin-hyd 8-29 unit/mL rocort 3.5 00:00: -% mg-10,000 00 unit/mL-1 % ear drops,susp triamcinolo 2018-0 No 1% ne 8-29 acetonide 00:00: 0.1 % 00 topical cream triamcinolo 2018-0 No 1% ne 8-29 acetonide 00:00: 0.1 % 00 topical cream nifedipine 2018-0 No 1mg ER 30 mg 8-29 tablet,exte 00:00: nded 00 release loratadine 2018-0 No 1mg 10 mg 8-29 tablet 00:00: 00 prednisone 2018-0 No 1mg 20 mg 8-29 tablet 00:00: 00 amoxicillin 2018-0 No 1mg 500 mg 8-29 capsule 00:00: 00 gabapentin 2018-0 No 1mg 300 mg 8-29 capsule 00:00: 00 neomycin-po 2018-0 No 4mg/mL- lymyxin-hyd 8-29 unit/mL rocort 3.5 00:00: -% mg-10,000 00 unit/mL-1 % ear drops,susp triamcinolo 2018-0 No 1% ne 8-29 acetonide 00:00: 0.1 % 00 topical cream triamcinolo 2018-0 No 1% ne 8-29 acetonide 00:00: 0.1 % 00 topical cream nifedipine 2018-0 No 1mg ER 30 mg 8-29 tablet,exte 00:00: nded 00 release loratadine 2018-0 No 1mg 10 mg 8-29 tablet 00:00: 00 prednisone 2018-0 No 1mg 20 mg 8-29 tablet 00:00: 00 amoxicillin 2018-0 No 1mg 500 mg 8-29 capsule 00:00: 00 gabapentin 2018-0 No 1mg 300 mg 8-29 capsule 00:00: 00 neomycin-po 2018-0 No 4mg/mL- lymyxin-hyd 8-29 unit/mL rocort 3.5 00:00: -% mg-10,000 00 unit/mL-1 % ear drops,susp triamcinolo 2018-0 No 1% ne 8-29 acetonide 00:00: 0.1 % 00 topical cream triamcinolo 2018-0 No 1% ne 8-29 acetonide 00:00: 0.1 % 00 topical cream nifedipine 2018-0 No 1mg ER 30 mg 8-29 tablet,exte 00:00: nded 00 release loratadine 2018-0 No 1mg 10 mg 8-29 tablet 00:00: 00 prednisone 2018-0 No 1mg 20 mg 8-29 tablet 00:00: 00 amoxicillin 2018-0 No 1mg 500 mg 8-29 capsule 00:00: 00 gabapentin 2018-0 No 1mg 300 mg 8-29 capsule 00:00: 00 triamcinolo 2018-0 No 1% ne 8-23 acetonide 00:00: 0.1 % 00 topical cream metformin 2018-0 No 1mg 1,000 mg 8-23 tablet 00:00: 00 triamcinolo 2018-0 No 1% ne 8-23 acetonide 00:00: 0.1 % 00 topical cream metformin 2018-0 No 1mg 1,000 mg 8-23 tablet 00:00: 00 triamcinolo 2018-0 No 1% ne 8-23 acetonide 00:00: 0.1 % 00 topical cream metformin 2018-0 No 1mg 1,000 mg 8-23 tablet 00:00: 00 triamcinolo 2018-0 No 1% ne 8-23 acetonide 00:00: 0.1 % 00 topical cream metformin 2018-0 No 1mg 1,000 mg 8-23 tablet 00:00: 00 triamcinolo 2018-0 No 1% ne 8-23 acetonide 00:00: 0.1 % 00 topical cream metformin 2018-0 No 1mg 1,000 mg 8-23 tablet 00:00: 00 triamcinolo 2018-0 No 1% ne 8-23 acetonide 00:00: 0.1 % 00 topical cream metformin 2018-0 No 1mg 1,000 mg 8-23 tablet 00:00: 00 naproxen 2018-0 No 1mg sodium 550 7-26 mg tablet 00:00: 00 metformin 2018-0 No 1mg 1,000 mg 7-26 tablet 00:00: 00 naproxen 2018-0 No 1mg sodium 550 7-26 mg tablet 00:00: 00 metformin 2018-0 No 1mg 1,000 mg 7-26 tablet 00:00: 00 naproxen 2018-0 No 1mg sodium 550 7-26 mg tablet 00:00: 00 metformin 2018-0 No 1mg 1,000 mg 7-26 tablet 00:00: 00 naproxen 2018-0 No 1mg sodium 550 7-26 mg tablet 00:00: 00 metformin 2018-0 No 1mg 1,000 mg 7-26 tablet 00:00: 00 naproxen 2018-0 No 1mg sodium 550 7-26 mg tablet 00:00: 00 metformin 2018-0 No 1mg 1,000 mg 7-26 tablet 00:00: 00 naproxen 2018-0 No 1mg sodium 550 7-26 mg tablet 00:00: 00 metformin 2018-0 No 1mg 1,000 mg 7-26 tablet 00:00: 00 citalopram 2018-0 Yes 40mg Take 40 mg U nivers 40 mg 7-15 by mouth ity of tablet 00:00: daily. [address] naproxen 2018-0 No 1mg sodium 550 6-29 mg tablet 00:00: 00 naproxen 2018-0 No 1mg sodium 550 6-29 mg tablet 00:00: 00 naproxen 2018-0 No 1mg sodium 550 6-29 mg tablet 00:00: 00 naproxen 2018-0 No 1mg sodium 550 6-29 mg tablet 00:00: 00 naproxen 2018-0 No 1mg sodium 550 6-29 mg tablet 00:00: 00 naproxen 2018-0 No 1mg sodium 550 6-29 mg tablet 00:00: 00 Humulin N 2018-0 No unit/mL NPH U-100 13 Insulin 00:00: (isophane 00 susp) 100 unit/mL subcutaneou s Pepcid 20 2018-0 No 1mg mg tablet 11-18 00:00: 00 Celexa 40 2018-0 No 1mg mg tablet 11-18 00:00: 00 metformin 2018-0 No 1mg 1,000 mg 6-13 tablet 00:00: 00 naproxen 2018-0 No 1mg sodium 550 6-13 mg tablet 00:00: 00 hydroxyzine 2018-0 No 1mg HCl 25 mg 6-13 tablet 00:00: 00 Lamictal 25 2018-0 No 1mg mg tablet 11-18 00:00: 00 Humulin N 2018-0 No unit/mL NPH U-100 13 Insulin 00:00: (isophane 00 susp) 100 unit/mL subcutaneou s Pepcid 20 2018-0 No 1mg mg tablet 11-18 00:00: 00 Celexa 40 2018-0 No 1mg mg tablet 11-18 00:00: 00 metformin 2018-0 No 1mg 1,000 mg 6-13 tablet 00:00: 00 naproxen 2018-0 No 1mg sodium 550 6-13 mg tablet 00:00: 00 hydroxyzine 2018-0 No 1mg HCl 25 mg 6-13 tablet 00:00: 00 Lamictal 25 2018-0 No 1mg mg tablet 11-18 00:00: 00 Humulin N 2018-0 No unit/mL NPH U-100 -13 Insulin 00:00: (isophane 00 susp) 100 unit/mL subcutaneou s Pepcid 20 2018-0 No 1mg mg tablet 11-18 00:00: 00 Celexa 40 2018-0 No 1mg mg tablet 11-18 00:00: 00 metformin 2018-0 No 1mg 1,000 mg 6-13 tablet 00:00: 00 naproxen 2018-0 No 1mg sodium 550 6-13 mg tablet 00:00: 00 hydroxyzine 2018-0 No 1mg HCl 25 mg 6-13 tablet 00:00: 00 Lamictal 25 2018-0 No 1mg mg tablet 11-18 00:00: 00 Humulin N 2018-0 No unit/mL NPH U-100 -13 Insulin 00:00: (isophane 00 susp) 100 unit/mL subcutaneou s Pepcid 20 2018-0 No 1mg mg tablet 11-18 00:00: 00 Celexa 40 2018-0 No 1mg mg tablet 11-18 00:00: 00 metformin 2018-0 No 1mg 1,000 mg 6-13 tablet 00:00: 00 naproxen 2018-0 No 1mg sodium 550 6-13 mg tablet 00:00: 00 hydroxyzine 2018-0 No 1mg HCl 25 mg 6-13 tablet 00:00: 00 Lamictal 25 2018-0 No 1mg mg tablet 11-18 00:00: 00 Humulin N 2018-0 No unit/mL NPH U-100 -13 Insulin 00:00: (isophane 00 susp) 100 unit/mL subcutaneou s Pepcid 20 2018-0 No 1mg mg tablet 11-18 00:00: 00 Celexa 40 2018-0 No 1mg mg tablet 11-18 00:00: 00 metformin 2018-0 No 1mg 1,000 mg 6-13 tablet 00:00: 00 naproxen 2018-0 No 1mg sodium 550 6-13 mg tablet 00:00: 00 hydroxyzine 2018-0 No 1mg HCl 25 mg 6-13 tablet 00:00: 00 Lamictal 25 2018-0 No 1mg mg tablet 11-18 00:00: 00 Humulin N 2018-0 No unit/mL NPH U-100 6-13 Insulin 00:00: (isophane 00 susp) 100 unit/mL subcutaneou s Pepcid 20 2018-0 No 1mg mg tablet 11-18 00:00: 00 Celexa 40 2018-0 No 1mg mg tablet 11-18 00:00: 00 metformin 2018-0 No 1mg 1,000 mg 6-13 tablet 00:00: 00 naproxen 2018-0 No 1mg sodium 550 6-13 mg tablet 00:00: 00 hydroxyzine 2018-0 No 1mg HCl 25 mg 6-13 tablet 00:00: 00 Lamictal 25 2018-0 No 1mg mg tablet 6-13 00:00: 00 Seroquel 2018-0 No 1mg 100 mg 2-14 tablet 00:00: 00 Seroquel 2018-0 No 1mg 100 mg 2-14 tablet 00:00: 00 Seroquel 2018-0 No 1mg 100 mg 2-14 tablet 00:00: 00 Seroquel 2018-0 No 1mg 100 mg 2-14 tablet 00:00: 00 Seroquel 2018-0 No 1mg 100 mg 2-14 tablet 00:00: 00 Seroquel 2018-0 No 1mg 100 mg 2-14 tablet 00:00: 00 loratadine 2017-0 No 1mg 10 mg 9-28 tablet 00:00: 00 loratadine 2017-0 No 1mg 10 mg 9-28 tablet 00:00: 00 loratadine 2017-0 No 1mg 10 mg 9-28 tablet 00:00: 00 loratadine 2017-0 No 1mg 10 mg 9-28 tablet 00:00: 00 loratadine 2017-0 No 1mg 10 mg 9-28 tablet 00:00: 00 loratadine 2017-0 No 1mg 10 mg 9-28 tablet 00:00: 00 Humulin R 2017-0 No 1unit/m Regular 9-14 L U-100 00:00: Insulin 100 00 unit/mL injection solution Humulin N 2017-0 No 1unit/m NPH U-100 9-14 L Insulin 00:00: (isophane 00 susp) 100 unit/mL subcutaneou s Humulin R 2017-0 No 1unit/m Regular 9-14 L U-100 00:00: Insulin 100 00 unit/mL injection solution Humulin N 2017-0 No 1unit/m NPH U-100 9-14 L Insulin 00:00: (isophane 00 susp) 100 unit/mL subcutaneou s Humulin R 2017-0 No 1unit/m Regular 9-14 L U-100 00:00: Insulin 100 00 unit/mL injection solution Humulin N 2017-0 No 1unit/m NPH U-100 9-14 L Insulin 00:00: (isophane 00 susp) 100 unit/mL subcutaneou s Humulin R 2017-0 No 1unit/m Regular 9-14 L U-100 00:00: Insulin 100 00 unit/mL injection solution Humulin N 2017-0 No 1unit/m NPH U-100 9-14 L Insulin 00:00: (isophane 00 susp) 100 unit/mL subcutaneou s Humulin R 2017-0 No 1unit/m Regular 9-14 L U-100 00:00: Insulin 100 00 unit/mL injection solution Humulin N 2017-0 No 1unit/m NPH U-100 9-14 L Insulin 00:00: (isophane 00 susp) 100 unit/mL subcutaneou s Humulin R 2017-0 No 1unit/m Regular 9-14 L U-100 00:00: Insulin 100 00 unit/mL injection solution Humulin N 2017-0 No 1unit/m NPH U-100 9-14 L Insulin 00:00: (isophane 00 susp) 100 unit/mL subcutaneou s neomycin-po 2017-0 No 4mg/mL- lymyxin-hyd 9-07 unit/mL rocort 3.5 00:00: -% mg-10,000 00 unit/mL-1 % ear drops,susp promethazin 2017-0 No 1mg e 12.5 mg 9-07 tablet 00:00: 00 omeprazole 2017-0 No 1mg 20 mg 9-07 capsule,del 00:00: ayed 00 release neomycin-po 2017-0 No 4mg/mL- lymyxin-hyd 9-07 unit/mL rocort 3.5 00:00: -% mg-10,000 00 unit/mL-1 % ear drops,susp promethazin 2017-0 No 1mg e 12.5 mg 9-07 tablet 00:00: 00 omeprazole 2017-0 No 1mg 20 mg 9-07 capsule,del 00:00: ayed 00 release neomycin-po 2017-0 No 4mg/mL- lymyxin-hyd 9-07 unit/mL rocort 3.5 00:00: -% mg-10,000 00 unit/mL-1 % ear drops,susp promethazin 2017-0 No 1mg e 12.5 mg 9-07 tablet 00:00: 00 omeprazole 2017-0 No 1mg 20 mg 9-07 capsule,del 00:00: ayed 00 release neomycin-po 2017-0 No 4mg/mL- lymyxin-hyd 9-07 unit/mL rocort 3.5 00:00: -% mg-10,000 00 unit/mL-1 % ear drops,susp promethazin 2017-0 No 1mg e 12.5 mg 9-07 tablet 00:00: 00 omeprazole 2017-0 No 1mg 20 mg 9-07 capsule,del 00:00: ayed 00 release neomycin-po 2017-0 No 4mg/mL- lymyxin-hyd 9-07 unit/mL rocort 3.5 00:00: -% mg-10,000 00 unit/mL-1 % ear drops,susp promethazin 2017-0 No 1mg e 12.5 mg 9-07 tablet 00:00: 00 omeprazole 2017-0 No 1mg 20 mg 9-07 capsule,del 00:00: ayed 00 release neomycin-po 2017-0 No 4mg/mL- lymyxin-hyd 9-07 unit/mL rocort 3.5 00:00: -% mg-10,000 00 unit/mL-1 % ear drops,susp promethazin 2017-0 No 1mg e 12.5 mg 9-07 tablet 00:00: 00 omeprazole 2017-0 No 1mg 20 mg 9-07 capsule,del 00:00: ayed 00 release triamcinolo 2017-0 No 1% ne 6-08 acetonide 00:00: 0.1 % 00 topical ointment triamcinolo 2017-0 No 1% ne 6-08 acetonide 00:00: 0.1 % 00 topical ointment triamcinolo 2017-0 No 1% ne 6-08 acetonide 00:00: 0.1 % 00 topical ointment triamcinolo 2017-0 No 1% ne 6-08 acetonide 00:00: 0.1 % 00 topical ointment triamcinolo 2017-0 No 1% ne 6-08 acetonide 00:00: 0.1 % 00 topical ointment triamcinolo 2017-0 No 1% ne 6-08 acetonide 00:00: 0.1 % 00 topical ointment metformin 2017-0 No 1mg 1,000 mg 6-01 tablet 00:00: 00 omeprazole 2017-0 No 1mg 20 mg 6-01 capsule,del 00:00: ayed 00 release metformin 2017-0 No 1mg 1,000 mg 6-01 tablet 00:00: 00 omeprazole 2017-0 No 1mg 20 mg 6-01 capsule,del 00:00: ayed 00 release metformin 2017-0 No 1mg 1,000 mg 6-01 tablet 00:00: 00 omeprazole 2017-0 No 1mg 20 mg 6-01 capsule,del 00:00: ayed 00 release metformin 2017-0 No 1mg 1,000 mg 6-01 tablet 00:00: 00 omeprazole 2017-0 No 1mg 20 mg 6-01 capsule,del 00:00: ayed 00 release metformin 2017-0 No 1mg 1,000 mg 6-01 tablet 00:00: 00 omeprazole 2017-0 No 1mg 20 mg 6-01 capsule,del 00:00: ayed 00 release metformin 2017-0 No 1mg 1,000 mg 6-01 tablet 00:00: 00 omeprazole 2017-0 No 1mg 20 mg 6-01 capsule,del 00:00: ayed 00 release gabapentin 2017-0 No 1mg 300 mg 4-07 capsule 00:00: 00 gabapentin 2017-0 No 1mg 300 mg 4-07 capsule 00:00: 00 gabapentin 2017-0 No 1mg 300 mg 4-07 capsule 00:00: 00 gabapentin 2017-0 No 1mg 300 mg 4-07 capsule 00:00: 00 gabapentin 2017-0 No 1mg 300 mg 4-07 capsule 00:00: 00 gabapentin 2017-0 No 1mg 300 mg 4-07 capsule 00:00: 00 Novolin N 2017-0 No 10unit/ 100 unit/mL 3-02 mL subcutaneou 00:00: s 00 suspension metformin 2017-0 No 1mg 1,000 mg 3-02 tablet 00:00: 00 ibuprofen 2017-0 No 1mg 800 mg 3-02 tablet 00:00: 00 Novolin N 2017-0 No 10unit/ 100 unit/mL 3-02 mL subcutaneou 00:00: s 00 suspension metformin 2017-0 No 1mg 1,000 mg 3-02 tablet 00:00: 00 ibuprofen 2017-0 No 1mg 800 mg 3-02 tablet 00:00: 00 Novolin N 2017-0 No 10unit/ 100 unit/mL 3-02 mL subcutaneou 00:00: s 00 suspension metformin 2017-0 No 1mg 1,000 mg 3-02 tablet 00:00: 00 ibuprofen 2017-0 No 1mg 800 mg 3-02 tablet 00:00: 00 Novolin N 2017-0 No 10unit/ 100 unit/mL 3-02 mL subcutaneou 00:00: s 00 suspension metformin 2017-0 No 1mg 1,000 mg 3-02 tablet 00:00: 00 ibuprofen 2017-0 No 1mg 800 mg 3-02 tablet 00:00: 00 Novolin N 2017-0 No 10unit/ 100 unit/mL 3-02 mL subcutaneou 00:00: s 00 suspension metformin 2017-0 No 1mg 1,000 mg 3-02 tablet 00:00: 00 ibuprofen 2017-0 No 1mg 800 mg 3-02 tablet 00:00: 00 Novolin N 2017-0 No 10unit/ 100 unit/mL 3-02 mL subcutaneou 00:00: s 00 suspension metformin 2017-0 No 1mg 1,000 mg 3-02 tablet 00:00: 00 ibuprofen 2017-0 No 1mg 800 mg 3-02 tablet 00:00: 00 hydroxyzine 2017-0 No 1mg HCl 25 mg 2-02 tablet 00:00: 00 hydroxyzine 2017-0 No 1mg HCl 25 mg 2-02 tablet 00:00: 00 hydroxyzine 2017-0 No 1mg HCl 25 mg 2-02 tablet 00:00: 00 hydroxyzine 2017-0 No 1mg HCl 25 mg 2-02 tablet 00:00: 00 hydroxyzine 2017-0 No 1mg HCl 25 mg 2-02 tablet 00:00: 00 hydroxyzine 2017-0 No 1mg HCl 25 mg 2-02 tablet 00:00: 00 albuterol 2015- No 2mcg/ac sulfate HFA 1-10 tuation 90 00:00: mcg/actuati 00 on aerosol inhaler meloxicam 2015- No 1mg 15 mg 1-10 tablet 00:00: 00 gabapentin 2015- No 1mg 400 mg 1-10 capsule 00:00: 00 albuterol 2015-06 No 2mcg/ac sulfate HFA 1-10 tuation 90 00:00: mcg/actuati 00 on aerosol inhaler meloxicam 2015- No 1mg 15 mg 1-10 tablet 00:00: 00 gabapentin 2015-1 No 1mg 400 mg 1-10 capsule 00:00: 00 albuterol 2015- No 2mcg/ac sulfate HFA 1-10 tuation 90 00:00: mcg/actuati 00 on aerosol inhaler meloxicam 2015- No 1mg 15 mg 1-10 tablet 00:00: 00 gabapentin 2015- No 1mg 400 mg 1-10 capsule 00:00: 00 albuterol 2015- No 2mcg/ac sulfate HFA 1-10 tuation 90 00:00: mcg/actuati 00 on aerosol inhaler meloxicam 2015- No 1mg 15 mg 1-10 tablet 00:00: 00 albuterol 2015- No 2mcg/ac sulfate HFA 1-10 tuation 90 00:00: mcg/actuati 00 on aerosol inhaler meloxicam 2015- No 1mg 15 mg 1-10 tablet 00:00: 00 gabapentin 2015- No 1mg 400 mg 1-10 capsule 00:00: 00 gabapentin 2015- No 1mg 400 mg 1-10 capsule 00:00: 00 albuterol 2015- No 2mcg/ac sulfate HFA 1-10 tuation 90 00:00: mcg/actuati 00 on aerosol inhaler meloxicam 2015- No 1mg 15 mg 1-10 tablet 00:00: 00 gabapentin 2015-1 No 1mg 400 mg 1-10 capsule 00:00: 00 Actos 45 mg 2016-0 No 1mg tablet 02-27 00:00: 00 metformin 2016-0 No 1mg 1,000 mg 9-22 tablet 00:00: 00 Actos 45 mg 2016-0 No 1mg tablet 02-27 00:00: 00 metformin 2016-0 No 1mg 1,000 mg 9-22 tablet 00:00: 00 Actos 45 mg 2015-0 No 1mg tablet 02-27 00:00: 00 metformin 2016-0 No 1mg 1,000 mg 9-22 tablet 00:00: 00 Actos 45 mg 2015-0 No 1mg tablet 02-27 00:00: 00 metformin 2016-0 No 1mg 1,000 mg 9-22 tablet 00:00: 00 Actos 45 mg 2015-0 No 1mg tablet 9 00:00: 00 metformin 2016-0 No 1mg 1,000 mg 9-22 tablet 00:00: 00 Actos 45 mg 2016-0 No 1mg tablet 9 00:00: 00 metformin 2016-0 No 1mg 1,000 mg 9-22 tablet 00:00: 00 Novolin N 2016-0 No 10unit/ 100 unit/mL 3-24 mL subcutaneou 00:00: s 00 suspension Actos 45 mg 2016-0 No 1mg tablet 3-24 00:00: 00 metformin 2016-0 No 1mg 1,000 mg 3-24 tablet 00:00: 00 Novolin N 2016-0 No 10unit/ 100 unit/mL 3-24 mL subcutaneou 00:00: s 00 suspension Actos 45 mg 2016-0 No 1mg tablet 324 00:00: 00 metformin 2016-0 No 1mg 1,000 mg 3-24 tablet 00:00: 00 Novolin N 2016-0 No 10unit/ 100 unit/mL 3-24 mL subcutaneou 00:00: s 00 suspension Novolin N 2016-0 No 10unit/ 100 unit/mL 3-24 mL subcutaneou 00:00: s 00 suspension Actos 45 mg 2016-0 No 1mg tablet 3-24 00:00: 00 metformin 2016-0 No 1mg 1,000 mg 3-24 tablet 00:00: 00 Actos 45 mg 2016-0 No 1mg tablet 3-24 00:00: 00 metformin 2016-0 No 1mg 1,000 mg 3-24 tablet 00:00: 00 Novolin N 2016-0 No 10unit/ 100 unit/mL 3-24 mL subcutaneou 00:00: s 00 suspension Actos 45 mg 2016-0 No 1mg tablet 3-24 00:00: 00 metformin 2016-0 No 1mg 1,000 mg 3-24 tablet 00:00: 00 Novolin N 2016-0 No 10unit/ 100 unit/mL 3-24 mL subcutaneou 00:00: s 00 suspension Actos 45 mg 2016-0 No 1mg tablet 3-24 00:00: 00 metformin 2016-0 No 1mg 1,000 mg 3-24 tablet 00:00: 00 Actos 45 mg 2016-0 No 1mg tablet 2-25 00:00: 00 Actos 45 mg 2016-0 No 1mg tablet 2-25 00:00: 00 Actos 45 mg 2016-0 No 1mg tablet 2-25 00:00: 00 Actos 45 mg 2016-0 No 1mg tablet 2-25 00:00: 00 Actos 45 mg 2016-0 No 1mg tablet 2-25 00:00: 00 Actos 45 mg 2016-0 No 1mg tablet 2-25 00:00: 00 metformin 2016-0 No 1mg 1,000 mg 1-21 tablet 00:00: 00 metformin 2016-0 No 1mg 1,000 mg 1-21 tablet 00:00: 00 metformin 2016-0 No 1mg 1,000 mg 1-21 tablet 00:00: 00 metformin 2016-0 No 1mg 1,000 mg 1-21 tablet 00:00: 00 metformin 2016-0 No 1mg 1,000 mg 1-21 tablet 00:00: 00 metformin 2016-0 No 1mg 1,000 mg 1-21 tablet 00:00: 00 citalopram 2015-1 No 1mg 40 mg 2-30 tablet 00:00: 00 citalopram 2015-1 No 1mg 40 mg 2-30 tablet 00:00: 00 citalopram 2015-1 No 1mg 40 mg 2-30 tablet 00:00: 00 citalopram 2015-1 No 1mg 40 mg 2-30 tablet 00:00: 00 citalopram 2015-1 No 1mg 40 mg 2-30 tablet 00:00: 00 citalopram 2015-1 No 1mg 40 mg 2-30 tablet 00:00: 00 Depakote ER 2014-1 No 1mg 500 mg 1-17 tablet,exte 00:00: nded 00 release Depakote ER 2014-1 No 1mg 500 mg 1-17 tablet,exte 00:00: nded 00 release Depakote ER 2014-1 No 1mg 500 mg 1-17 tablet,exte 00:00: nded 00 release Depakote ER 2014-1 No 1mg 500 mg 1-17 tablet,exte 00:00: nded 00 release Depakote ER 2014-1 No 1mg 500 mg 1-17 tablet,exte 00:00: nded 00 release Depakote ER 2014-1 No 1mg 500 mg 1-17 tablet,exte 00:00: nded 00 release albuterol 2014- No 2mcg/ac sulfate HFA 0-01 tuation 90 00:00: mcg/actuati 00 on aerosol inhaler metformin 2014-1 No mg 500 mg 0-01 tablet 00:00: 00 gabapentin 2014-1 No 1mg 300 mg 0-01 capsule 00:00: 00 albuterol 2014- No 2mcg/ac sulfate HFA 0-01 tuation 90 00:00: mcg/actuati 00 on aerosol inhaler metformin 2014- No mg 500 mg 0-01 tablet 00:00: 00 gabapentin 2014-1 No 1mg 300 mg 0-01 capsule 00:00: 00 albuterol 2014- No 2mcg/ac sulfate HFA 0-01 tuation 90 00:00: mcg/actuati 00 on aerosol inhaler metformin 2014-1 No mg 500 mg 0-01 tablet 00:00: 00 gabapentin 2014-1 No 1mg 300 mg 0-01 capsule 00:00: 00 albuterol 2014- No 2mcg/ac sulfate HFA 0-01 tuation 90 00:00: mcg/actuati 00 on aerosol inhaler metformin 2014-1 No mg 500 mg 0-01 tablet 00:00: 00 gabapentin 2014-1 No 1mg 300 mg 0-01 capsule 00:00: 00 albuterol 2014-1 No 2mcg/ac sulfate HFA 0-01 tuation 90 00:00: mcg/actuati 00 on aerosol inhaler metformin 2014-1 No mg 500 mg 0-01 tablet 00:00: 00 gabapentin 2014-1 No 1mg 300 mg 0-01 capsule 00:00: 00 albuterol 2014- No 2mcg/ac sulfate HFA 0-01 tuation 90 00:00: mcg/actuati 00 on aerosol inhaler metformin 2014-1 No mg 500 mg 0-01 tablet 00:00: 00 gabapentin 2014-1 No 1mg 300 mg 0-01 capsule 00:00: 00 Medrol 2015-0 No 1mg (Daniel) 4 mg 6-26 tablets in 00:00: a dose pack 00 Medrol 2015-0 No 1mg (Daniel) 4 mg 6-26 tablets in 00:00: a dose pack 00 Medrol 2014-0 No 1mg (Daniel) 4 mg 6-26 tablets [...] No 5mg mg tablet 6-18 00:00: 00 Abilify 10 2015-0 No 5mg mg tablet 6-18 00:00: 00 citalopram 2015-0 No 1mg 40 mg 6-18 tablet 00:00: 00 citalopram 2015-0 No 1mg [...] No 5mg mg tablet 5-21 00:00: 00 Abilify 10 2015-0 No 5mg mg tablet 10-26 00:00: 00 Abilify 10 2015-0 No 5mg mg tablet 10-26 00:00: 00 Abilify 10 2015-0 No 5mg mg tablet 10-26 00:00: 00 Abilify 10 2015-0 No 5mg mg tablet 10-26 00:00: 00 Abilify 10 2015-0 No 5mg mg tablet 10-26 00:00: 00 citalopram 2015-0 No 1mg 40 [...] Cipro 500 2015-0 No 1mg mg tablet 5 00:00: 00 metformin 2015-0 No mg 500 mg 5-08 tablet 00:00: 00 citalopram 2015-0 No 1mg 40 mg 5-08 tablet 00:00: 00 Cipro 500 2015-0 No 1mg mg tablet 5 00:00: 00 metformin 2015-0 No mg 500 mg 5-08 tablet 00:00: 00 citalopram 2015-0 No 1mg 40 mg 5-08 tablet 00:00: 00 Cipro 500 2015-0 No 1mg mg tablet 5 00:00: 00 metformin 2015-0 No mg 500 mg 5-08 tablet 00:00: 00 citalopram 2014-0 No 1mg 40 mg 5-08 tablet 00:00: 00 Cipro 500 2014-0 No 1mg mg tablet 10-13 00:00: 00 metformin 2015-0 No mg 500 mg 5-08 tablet 00:00: 00 citalopram 2014-0 No 1mg 40 mg 5-08 tablet 00:00: 00 Cipro 500 2014-0 No 1mg mg tablet 10-13 00:00: 00 citalopram 2014-0 No 1mg 40 mg 5-08 tablet 00:00: 00 Cipro 500 2014-0 No 1mg mg tablet 10-13 00:00: 00 metformin 2015-0 No mg 500 mg 5-08 tablet 00:00: 00 metformin 2015-0 No mg 500 mg 5-08 tablet 00:00: 00 Immunizations Ordered Filled Immunization Date Status Comments Sourc e Immunization Name Name Influenza Virus 2019-05-10 Completed [facility] 00:00:00 [facility] 6+ [facility] TDAP 2017-07-20 Completed [facility] 00[facility]00 [facility] Influenza Virus 2017-04-09 Completed [facility] 3+ 00:00:00 [facility] Vital Signs Vital Name Observation Time Observation Value Comments Source BP Systolic 2022-03-13 10:13:00 149 mm[Hg] BP Diastolic 2022-03-13 10:13:00 99 mm[Hg] Weight Measured 2022-03-13 10:13:00 145.80 pounds Height Measured 2022-03-13 10:13:00 61.00 inches Body Temperature 2022-03-13 10:13:00 98.10 degrees Heart Rate 2022-03-13 10:13:00 115.00 /min Respiratory Rate 2022-03-13 10:13:00 BP Systolic 2022-02-04 09:59:00 117 mm[Hg] BP Diastolic 2022-02-04 09:59:00 77 mm[Hg] Weight Measured 2022-02-04 09:59:00 154.20 pounds Height Measured 2022-02-04 09:59:00 61.00 inches Body Temperature 2022-02-04 09:59:00 97.80 degrees Heart Rate 2022-02-04 09:59:00 102.00 /min Respiratory Rate 2022-02-04 09:59:00 BP Systolic 2022-01-29 13:38:00 115 mm[Hg] BP [...] Goal Plan of Care Note [code = 62069-0] Goal Plan of Care Note [code = 02955-1] Goal Plan of Care Note [code = 49615-2] Goal Plan of Care Note [code = 91596-1] Goal Plan of Care Note [code = 87173-9] Goal Plan of Care Note [code = 66805-3] Goal Plan of Care Note [code = 22458-6] Goal Plan of Care Note [code = 68427-7] Goal Plan of Care Note [code = 99345-6] Goal Plan of Care Note [code = 53959-0] Goal Plan of Care Note [code = 97280-1] Goal Plan of Care Note [code = 26399-2] Goal Plan of Care Note [code = 71279-4] Goal Plan of Care Note [code = 73049-6] Goal Plan of Care Note [code = 58876-7] Goal Plan of Care Note [code = 35850-2] Goal Plan of Care Note [code = 18184-4] Goal Plan of Care Note [code = 39653-4] Goal Plan of Care Note [code = 44011-9] Goal Plan of Care Note [code = 18777-8] Goal Plan of Care Note [code = 49627-9] Goal Plan of Care Note [code = 61854-0] Goal Plan of Care Note [code = 48971-1] Goal Plan of Care Note [code = 35530-6] Goal Plan of Care Note [code = 11182-0] Goal Plan of Care Note [code = 29433-6] Goal Plan of Care Note [code = 74072-4] Goal Plan of Care Note [code = 35455-0] Goal Plan of Care Note [code = 64819-9] Goal Plan of Care Note [code = 72496-3] Goal Plan of Care Note [code = 77840-5] Goal Plan of Care Note [code = 57346-0] Goal Plan of Care Note [code = 82240-2] Goal Plan of Care Note [code = 62830-0] Goal Plan of Care Note [code = 06465-6] Goal Plan of Care Note [code = 56854-1] Goal Plan of Care Note [code = 13792-2] Goal Plan of Care Note [code = 19977-3] Goal Plan of Care Note [code = 95986-6] Goal Plan of Care Note [code = 88003-0] Goal Plan of Care Note [code = 23561-4] Goal Plan of Care Note [code = 25694-5] Goal Plan of Care Note [code = 57837-1] Goal Plan of Care Note [code = 37875-9] Goal Plan of Care Note [code = 64904-7] Goal Plan of Care Note [code = 29892-9] Goal Plan of Care Note [code = 68221-7] Goal Plan of Care Note [code = 88947-1] Goal Plan of Care Note [code = 74755-4] Goal Plan of Care Note [code = 23315-9] Goal Plan of Care Note [code = 91191-1] Goal Plan of Care Note [code = 27340-3] Goal Plan of Care Note [code = 54880-8] Goal Plan of Care Note [code = 06310-6] Goal Plan of Care Note [code = 66228-7] Goal Plan of Care Note [code = 88466-4] Goal Plan of Care Note [code = 39197-9] Goal Plan of Care Note [code = 02527-4] Goal Plan of Care Note [code = 01157-5] Goal Plan of Care Note [code = 98248-9] Goal Plan of Care Note [code = 88680-9] Goal Plan of Care Note [code = 96213-0] Goal Plan of Care Note [code = 17852-4] Goal Plan of Care Note [code = 37778-9] Goal Plan of Care Note [code = 81255-4] Goal Plan of Care Note [code = 82499-2] Goal Plan of Care Note [code = 65431-6] Goal Plan of Care Note [code = 39980-7] Goal Plan of Care Note [code = 43700-1] Goal Plan of Care Note [code = 30026-8] Goal Plan of Care Note [code = 55433-0] Goal Plan of Care Note [code = 80332-6] Goal Plan of Care Note [code = 52375-9] Goal Plan of Care Note [code = 28284-8] Goal Plan of Care Note [code = 79003-5] Goal Plan of Care Note [code = 19362-5] Goal Plan of Care Note [code = 80435-2] Goal Plan of Care Note [code = 59371-8] Goal Plan of Care Note [code = 33719-2] Goal Plan of Care Note [code = 21581-8] Goal Plan of Care Note [code = 75270-4] Goal Plan of Care Note [code = 89339-5] Goal Plan of Care Note [code = 88799-5] Goal Plan of Care Note [code = 25215-1] Goal Plan of Care Note [code = 29916-1] Goal Plan of Care Note [code = 90783-5] Goal Plan of Care Note [code = 65324-9] Goal Plan of Care Note [code = 28396-7] Goal Plan of Care Note [code = 59728-0] Goal Plan of Care Note [code = 64641-5] Goal Plan of Care Note [code = 12024-0] Goal Plan of Care Note [code = 63005-3] Goal Plan of Care Note [code = 35334-9] Goal Plan of Care Note [code = 05479-8] Goal Plan of Care Note [code = 03533-2] Goal Plan of Care Note [code = 68875-5] Goal Plan of Care Note [code = 20441-0] Goal Plan of Care Note [code = 80090-5] Goal Plan of Care Note [code = 92626-2] Goal Plan of Care Note [code = 79617-0] Goal Plan of Care Note [code = 36803-0] Goal Plan of Care Note [code = 25236-1] Goal Plan of Care Note [code = 64395-9] Goal Plan of Care Note [code = 07323-5] Goal Plan of Care Note [code = 83140-0] Goal Plan of Care Note [code = 40472-0] Goal Plan of Care Note [code = 71916-2] Goal Plan of Care Note [code = 42777-3] Goal Plan of Care Note [code = 07882-1] Goal Plan of Care Note [code = 71042-4] Goal Plan of Care Note [code = 75211-2] Goal Plan of Care Note [code = 58649-6] Goal Plan of Care Note [code = 27259-3] Goal Plan of Care Note [code = 15614-6] Goal Plan of Care Note [code = 29148-6] Goal Plan of Care Note [code = 34971-2] Goal Plan of Care Note [code = 67768-7] Goal Plan of Care Note [code = 07439-3] Goal Plan of Care Note [code = 42433-0] Goal Plan of Care Note [code = 36278-0] Goal Plan of Care Note [code = 05875-2] Goal Plan of Care Note [code = 10016-2] Goal Plan of Care Note [code = 98747-0] Goal Plan of Care Note [code = 50789-3] Goal Plan of Care Note [code = 92444-9] Goal Plan of Care Note [code = 12504-0] Goal Plan of Care Note [code = 65658-3] Goal Plan of Care Note [code = 08720-5] Goal Plan of Care Note [code = 67116-0] Goal Plan of Care Note [code = 56563-8] Goal Plan of Care Note [code = 06093-6] Goal Plan of Care Note [code = 35307-7] Goal Plan of Care Note [code = 81466-0] Goal Plan of Care Note [code = 24160-6] Goal Plan of Care Note [code = 74694-8] Goal Plan of Care Note [code = 06655-6] Goal Plan of Care Note [code = 19084-5] Goal Plan of Care Note [code = 05992-4] Goal Plan of Care Note [code = 84243-2] Goal Plan of Care Note [code = 59732-2] Goal Plan of Care Note [code = 91516-7] Goal Plan of Care Note [code = 57635-3] Goal Plan of Care Note [code = 20637-8] Goal Plan of Care Note [code = 62347-2] Goal Plan of Care Note [code = 05490-2] Goal Plan of Care Note [code = 21056-2] Goal Plan of Care Note [code = 98105-3] Goal Plan of Care Note [code = 12538-3] Goal Plan of Care Note [code = 51283-5] Goal Plan of Care Note [code = 20450-6] Goal Plan of Care Note [code = 79624-0] Goal Plan of Care Note [code = 24347-0] Goal Plan of Care Note [code = 38419-0] Goal Plan of Care Note [code = 28732-7] Goal Plan of Care Note [code = 68633-5] Goal Plan of Care Note [code = 61502-3] Goal Plan of Care Note [code = 24215-3] Goal Plan of Care Note [code = 74886-8] Goal Plan of Care Note [code = 28041-2] Goal Plan of Care Note [code = 34257-2] Goal Plan of Care Note [code = 58380-7] Goal Plan of Care Note [code = 38866-9] Goal Plan of Care Note [code = 44255-7] Goal Plan of Care Note [code = 70330-9] Goal Plan of Care Note [code = 69237-2] Goal Plan of Care Note [code = 66030-1] Goal Plan of Care Note [code = 25914-1] Goal Plan of Care Note [code = 62715-3] Goal Plan of Care Note [code = 09122-9] Goal Plan of Care Note [code = 43916-8] Goal Plan of Care Note [code = 32925-0] Goal Plan of Care Note [code = 01996-6] Goal Plan of Care Note [code = 51377-5] Goal Plan of Care Note [code = 74894-8] Goal Plan of Care Note [code = 32861-6] Goal Plan of Care Note [code = 48546-4] Goal Plan of Care Note [code = 47251-4] Goal Plan of Care Note [code = 40018-0] Goal Plan of Care Note [code = 27244-8] Goal Plan of Care Note [code = 64441-6] Goal Plan of Care Note [code = 30548-2] Goal Plan of Care Note [code = 00376-3] Goal Plan of Care Note [code = 41212-2] Goal Plan of Care Note [code = 13627-9] Goal Plan of Care Note [code = 55174-4] Goal Plan of Care Note [code = 95343-1] Goal Plan of Care Note [code = 09722-0] Goal Plan of Care Note [code = 92435-2] Goal Plan of Care Note [code = 41560-6] Goal Plan of Care Note [code = 41482-8] Goal Plan of Care Note [code = 49203-2] Goal Plan of Care Note [code = 56534-6] Goal Plan of Care Note [code = 77384-4] Goal Plan of Care Note [code = 59022-0] Goal Plan of Care Note [code = 83546-4] Goal Plan of Care Note [code = 31387-3] Goal Plan of Care Note [code = 24053-4] Goal Plan of Care Note [code = 06265-4] Goal Plan of Care Note [code = 14585-3] Goal Plan of Care Note [code = 20942-0] Goal Plan of Care Note [code = 73142-9] Goal Plan of Care Note [code = 07060-9] Goal Plan of Care Note [code = 02175-4] Goal Plan of Care Note [code = 92199-6] Goal Plan of Care Note [code = 24326-8] Goal Plan of Care Note [code = 67512-1] Goal Plan of Care Note [code = 40220-7] Goal Plan of Care Note [code = 69458-1] Goal Plan of Care Note [code = 67218-2] Goal Plan of Care Note [code = 16630-1] Goal Plan of Care Note [code = 38077-8] Goal Plan of Care Note [code = 26582-4] Goal Plan of Care Note [code = 63346-5] Goal Plan of Care Note [code = 66429-2] Goal Plan of Care Note [code = 30372-4] Goal Plan of Care Note [code = 70059-0] Goal Plan of Care Note [code = 43793-6] Goal Plan of Care Note [code = 52824-7] Goal Plan of Care Note [code = 95792-3] Goal Plan of Care Note [code = 20968-3] Goal Plan of Care Note [code = 86862-3] Goal Plan of Care Note [code = 70661-7] Goal Plan of Care Note [code = 44714-9] Goal Plan of Care Note [code = 15699-1] Goal Plan of Care Note [code = 69154-0] Goal Plan of Care Note [code = 03847-1] Goal Plan of Care Note [code = 56882-2] Goal Plan of Care Note [code = 42741-5] Goal Plan of Care Note [code = 69397-3] Goal Plan of Care Note [code = 73787-4] Goal Plan of Care Note [code = 78206-0] Goal Plan of Care Note [code = 56216-5] Goal Plan of Care Note [code = 40436-3] Goal Plan of Care Note [code = 80664-4] Goal Plan of Care Note [code = 39568-9] Goal Plan of Care Note [code = 90185-8] Goal Plan of Care Note [code = 63816-6] Goal Plan of Care Note [code = 83572-6] Goal Plan of Care Note [code = 16429-9] Goal Plan of Care Note [code = 18490-4] Goal Plan of Care Note [code = 03969-1] Goal Plan of Care Note [code = 83362-3] Goal Plan of Care Note [code = 32449-4] Goal Plan of Care Note [code = 10730-5] Goal Plan of Care Note [code = 93958-2] Goal Plan of Care Note [code = 57773-7] Goal Plan of Care Note [code = 60221-1] Goal Plan of Care Note [code = 17053-5] Goal Plan of Care Note [code = 92883-1] Goal Plan of Care Note [code = 04347-2] Goal Plan of Care Note [code = 41580-5] Goal Plan of Care Note [code = 96017-4] Goal Plan of Care Note [code = 07250-6] Goal Plan of Care Note [code = 54663-7] Goal Plan of Care Note [code = 47699-1] Goal Plan of Care Note [code = 37251-2] Goal Plan of Care Note [code = 88793-6] Goal Plan of Care Note [code = 89029-0] Goal Plan of Care Note [code = 44808-5] Goal Plan of Care Note [code = 37669-1] Goal Plan of Care Note [code = 97011-3] Goal Plan of Care Note [code = 57676-9] Goal Plan of Care Note [code = 86888-5] Goal Plan of Care Note [code = 25226-2] Goal Plan of Care Note [code = 15778-3] Goal Plan of Care Note [code = 44418-9] Goal Plan of Care Note [code = 62292-2] Goal Plan of Care Note [code = 67156-4] Goal Plan of Care Note [code = 59218-8] Goal Plan of Care Note [code = 94384-7] Goal Plan of Care Note [code = 01201-5] Goal Plan of Care Note [code = 08876-0] Goal Plan of Care Note [code = 96656-1] Goal Plan of Care Note [code = 26523-9] Goal Plan of Care Note [code = 33699-6] Goal Plan of Care Note [code = 05723-8] Goal Plan of Care Note [code = 96814-0] Goal Plan of Care Note [code = 30316-0] Goal Plan of Care Note [code = 01599-6] Goal Plan of Care Note [code = 86430-4] Goal Plan of Care Note [code = 59240-0] Goal Plan of Care Note [code = 08893-6] Goal Plan of Care Note [code = 56102-3] Goal Plan of Care Note [code = 68351-7] Goal Plan of Care Note [code = 02101-6] Goal Plan of Care Note [code = 23547-4] Goal Plan of Care Note [code = 40883-3] Goal Plan of Care Note [code = 80528-3] Goal Plan of Care Note [code = 68035-0] Goal Plan of Care Note [code = 42861-2] Goal Plan of Care Note [code = 97328-3] Goal Plan of Care Note [code = 11297-9] Goal Plan of Care Note [code = 50636-4] Goal Plan of Care Note [code = 16700-5] Goal Plan of Care Note [code = 26736-5] Goal Plan of Care Note [code = 21611-1] Goal Plan of Care Note [code = 72542-6] Goal Plan of Care Note [code = 57660-5] Goal Plan of Care Note [code = 61879-6] Goal Plan of Care Note [code = 71396-7] Goal Plan of Care Note [code = 79693-0] Goal Plan of Care Note [code = 82453-7] Goal Plan of Care Note [code = 24493-4] Goal Plan of Care Note [code = 97587-0] Goal Plan of Care Note [code = 36040-6] Goal Plan of Care Note [code = 56929-4] Goal Plan of Care Note [code = 14726-3] Goal Plan of Care Note [code = 57982-2] Goal Plan of Care Note [code = 59716-6] Goal Plan of Care Note [code = 47945-3] Goal Plan of Care Note [code = 95576-7] Goal Plan of Care Note [code = 41107-0] Goal Plan of Care Note [code = 53569-4] Goal Plan of Care Note [code = 20559-2] Goal Plan of Care Note [code = 29399-1] Goal Plan of Care Note [code = 90328-1] Goal Plan of Care Note [code = 98958-4] Goal Plan of Care Note [code = 13500-3] Goal Plan of Care Note [code = 03379-3] Goal Plan of Care Note [code = 13427-5] Goal Plan of Care Note [code = 88158-8] Goal Plan of Care Note [code = 64228-1] Goal Plan of Care Note [code = 79006-8] Goal Plan of Care Note [code = 71514-9] Goal Plan of Care Note [code = 88908-1] Goal Plan of Care Note [code = 03183-3] Goal Plan of Care Note [code = 16356-9] Goal Plan of Care Note [code = 16339-8] Goal Plan of Care Note [code = 30250-3] Goal Plan of Care Note [code = 10562-0] Goal Plan of Care Note [code = 00874-1] Goal Plan of Care Note [code = 50642-7] Goal Plan of Care Note [code = 65134-6] Goal Plan of Care Note [code = 84727-0] Goal Plan of Care Note [code = 89191-1] Goal Plan of Care Note [code = 08356-3] Goal Plan of Care Note [code = 66842-7] Goal Plan of Care Note [code = 97810-0] Goal Plan of Care Note [code = 39014-6] Goal Plan of Care Note [code = 34495-7] Goal Plan of Care Note [code = 26888-0] Goal Plan of Care Note [code = 31005-5] Goal Plan of Care Note [code = 90635-3] Goal Plan of Care Note [code = 68633-4] Goal Plan of Care Note [code = 40251-0] Goal Plan of Care Note [code = 36852-3] Goal Plan of Care Note [code = 18033-1] Goal Plan of Care Note [code = 63011-9] Goal Plan of Care Note [code = 21580-7] Goal Plan of Care Note [code = 01484-4] Goal Plan of Care Note [code = 13131-5] Goal Plan of Care Note [code = 67904-3] Goal Plan of Care Note [code = 76827-6] Goal Plan of Care Note [code = 96869-7] Goal Plan of Care Note [code = 74520-6] Goal Plan of Care Note [code = 66605-4] Goal Plan of Care Note [code = 22939-4] Goal Plan of Care Note [code = 85785-0] Goal Plan of Care Note [code = 24157-8] Goal Plan of Care Note [code = 99623-8] Goal Plan of Care Note [code = 04114-2] Goal Plan of Care Note [code = 12203-5] Goal Plan of Care Note [code = 99443-8] Goal Plan of Care Note [code = 04437-0] Goal Plan of Care Note [code = 12608-4] Goal Plan of Care Note [code = 32417-1] Goal Plan of Care Note [code = 21930-0] Goal Plan of Care Note [code = 63305-5] Goal Plan of Care Note [code = 71866-6] Goal Plan of Care Note [code = 08516-4] Goal Plan of Care Note [code = 28132-0] Goal Plan of Care Note [code = 88728-6] Goal Plan of Care Note [code = 68734-4] Goal Plan of Care Note [code = 03170-6] Goal Plan of Care Note [code = 54776-3] Goal Plan of Care Note [code = 25144-4] Goal Plan of Care Note [code = 25702-3] Goal Plan of Care Note [code = 31826-3] Goal Plan of Care Note [code = 43183-5] Goal Plan of Care Note [code = 72038-1] Goal Plan of Care Note [code = 56095-1] Goal Plan of Care Note [code = 80894-8] Goal Plan of Care Note [code = 40140-4] Goal Plan of Care Note [code = 10636-1] Goal Plan of Care Note [code = 35448-5] Goal Plan of Care Note [code = 17293-5] Goal Plan of Care Note [code = 15255-8] Goal Plan of Care Note [code = 45025-3] Goal Plan of Care Note [code = 75809-9] Goal Plan of Care Note [code = 03973-7] Goal Plan of Care Note [code = 37471-2] Goal Plan of Care Note [code = 84849-6] Goal Plan of Care Note [code = 77161-3] Goal Plan of Care Note [code = 44224-5] Goal Plan of Care Note [code = 23821-0] Goal Plan of Care Note [code = 89414-6] Goal Plan of Care Note [code = 48233-5] Goal Plan of Care Note [code = 02592-2] Goal Plan of Care Note [code = 06243-0] Goal Plan of Care Note [code = 61361-3] Goal Plan of Care Note [code = 69786-5] Goal Plan of Care Note [code = 94915-5] Goal Plan of Care Note [code = 36039-2] Goal Plan of Care Note [code = 98014-4] Goal Plan of Care Note [code = 58825-5] Goal Plan of Care Note [code = 88850-0] Goal Plan of Care Note [code = 26033-7] Goal Plan of Care Note [code = 40449-9] Goal Plan of Care Note [code = 06368-5] Goal Plan of Care Note [code = 67293-7] Goal Plan of Care Note [code = 68921-7] Goal Plan of Care Note [code = 30311-9] Goal Plan of Care Note [code = 32998-7] Goal Plan of Care Note [code = 25928-1] Goal Plan of Care Note [code = 43274-0] Goal Plan of Care Note [code = 29095-9] Goal Plan of Care Note [code = 83056-9] Goal Plan of Care Note [code = 04323-0] Goal Plan of Care Note [code = 29749-2] Goal Plan of Care Note [code = 72939-1] Goal Plan of Care Note [code = 19936-3] Goal Plan of Care Note [code = 30421-4] Goal Plan of Care Note [code = 83186-0] Goal Plan of Care Note [code = 90977-4] Goal Plan of Care Note [code = 22126-1] Goal Plan of Care Note [code = 61740-8] Goal Plan of Care Note [code = 30090-9] Goal Plan of Care Note [code = 72614-4] Goal Plan of Care Note [code = 89013-2] Goal Plan of Care Note [code = 12108-3] Goal Plan of Care Note [code = 23951-6] Goal Plan of Care Note [code = 93365-9] Goal Plan of Care Note [code = 26044-9] Goal Plan of Care Note [code = 49823-5] Goal Plan of Care Note [code = 83440-2] Goal Plan of Care Note [code = 31745-1] Goal Plan of Care Note [code = 37993-9] Goal Plan of Care Note [code = 56657-3] Goal Plan of Care Note [code = 03106-7] Goal Plan of Care Note [code = 65865-3] Goal Plan of Care Note [code = 08769-9] Goal Plan of Care Note [code = 18958-6] Goal Plan of Care Note [code = 49482-1] Goal Plan of Care Note [code = 95590-7] Goal Plan of Care Note [code = 39934-8] Goal Plan of Care Note [code = 33628-2] Goal Plan of Care Note [code = 95769-0] Goal Plan of Care Note [code = 64497-0] Goal Plan of Care Note [code = 79011-5] Goal Plan of Care Note [code = 21855-1] Goal Plan of Care Note [code = 82999-2] Goal Plan of Care Note [code = 63789-8] Goal Plan of Care Note [code = 85955-8] Goal Plan of Care Note [code = 15778-3] Goal Plan of Care Note [code = 70109-0] Goal Plan of Care Note [code = 18277-6] Goal Plan of Care Note [code = 38625-2] Goal Plan of Care Note [code = 56320-4] Goal Plan of Care Note [code = 67437-2] Goal Plan of Care Note [code = 82468-1] Goal Plan of Care Note [code = 65942-1] Goal Plan of Care Note [code = 55589-2] Goal Plan of Care Note [code = 46759-1] Goal Plan of Care Note [code = 36316-1] Goal Plan of Care Note [code = 77345-1] Goal Plan of Care Note [code = 19958-2] Goal Plan of Care Note [code = 97407-5] Goal Plan of Care Note [code = 05588-1] Goal Plan of Care Note [code = 63179-3] Goal Plan of Care Note [code = 58038-4] Goal Plan of Care Note [code = 52453-7] Goal Plan of Care Note [code = 59818-1] Goal Plan of Care Note [code = 16433-3] Goal Plan of Care Note [code = 08381-3] Goal Plan of Care Note [code = 22359-1] Goal Plan of Care Note [code = 61549-6] Goal Plan of Care Note [code = 50496-5] Goal Plan of Care Note [code = 15768-6] Goal Plan of Care Note [code = 41358-3] Goal Plan of Care Note [code = 72082-5] Goal Plan of Care Note [code = 31154-8] Goal Plan of Care Note [code = 61478-8] Goal Plan of Care Note [code = 71616-3] Goal Plan of Care Note [code = 19204-0] Goal Plan of Care Note [code = 82526-9] Goal Plan of Care Note [code = 03913-8] Goal Plan of Care Note [code = 43281-1] Goal Plan of Care Note [code = 41711-7] Goal Plan of Care Note [code = 44448-0] Goal Plan of Care Note [code = 96318-8] Goal Plan of Care Note [code = 42381-7] Goal Plan of Care Note [code = 91080-3] Goal Plan of Care Note [code = 00541-2] Goal Plan of Care Note [code = 11197-0] Goal Plan of Care Note [code = 84913-6] Goal Plan of Care Note [code = 29119-0] Goal Plan of Care Note [code = 68599-2] Goal Plan of Care Note [code = 40085-4] Goal Plan of Care Note [code = 73015-8] Goal Plan of Care Note [code = 22516-8] Goal Plan of Care Note [code = 96014-1] Goal Plan of Care Note [code = 76596-4] Goal Plan of Care Note [code = 33435-4] Goal Plan of Care Note [code = 74904-0] Goal Plan of Care Note [code = 04999-3] Goal Plan of Care Note [code = 94294-3] Goal Plan of Care Note [code = 67966-3] Goal Plan of Care Note [code = 10317-7] Goal Plan of Care Note [code = 10157-1] Goal Plan of Care Note [code = 51524-4] Goal Plan of Care Note [code = 26992-2] Goal Plan of Care Note [code = 59619-9] Goal Plan of Care Note [code = 80618-0] Goal Plan of Care Note [code = 22898-2] Goal Plan of Care Note [code = 29077-9] Goal Plan of Care Note [code = 43490-0] Goal Plan of Care Note [code = 83158-5] Goal Plan of Care Note [code = 54959-2] Goal Plan of Care Note [code = 97875-4] Goal Plan of Care Note [code = 25071-0] Goal Plan of Care Note [code = 81922-1] Goal Plan of Care Note [code = 35634-4] Goal Plan of Care Note [code = 04791-4] Goal Plan of Care Note [code = 80311-3] Goal Plan of Care Note [code = 40782-6] Goal Plan of Care Note [code = 80963-5] Goal Plan of Care Note [code = 34455-5] Goal Plan of Care Note [code = 50987-6] Goal Plan of Care Note [code = 41350-8] Goal Plan of Care Note [code = 12028-3] Goal Plan of Care Note [code = 93366-1] Goal Plan of Care Note [code = 20203-8] Goal Plan of Care Note [code = 62055-5] Goal Plan of Care Note [code = 14586-6] Goal Plan of Care Note [code = 04130-4] Goal Plan of Care Note [code = 62510-3] Goal Plan of Care Note [code = 74736-0] Encounters Start End Encounter Admission Attending Care Care Encounter Source Date/Time Date/Time Type Type Clinicians Facility Department ID 2022-08-25 2022-08-25 Outpatient [facility] 023 Darrell 09:10:03 09:10:03 0320 F Calvin 2022-06-24 2022-06-24 Outpatient [facility] 023 Darrell 09:11:30 09:11:30 0117 F Calvin 2022-03-13 2022-03-13 Outpatient [facility] 022 Darrell 10:02:38 10:02:38 1006 F Calvin 2022-03-13 2022-03-13 Outpatient [id number]- [id number] 7b8d64-b 00:00:00 00:00:00 Visit uw87-0833 s98-3528-1 -96fe-426 6fe-426a69 w16i8zen7 e6bed6 2022-02-25 2022-02-25 Outpatient 63r0z690- [id number] z7v001-0 00:00:00 00:00:00 Visit 63ae-453e 3ae-453e-a -zx93-930 u54-1052ov 1fiek4ri6 ad2ad7 2022-02-04 2022-02-04 Outpatient 4k3g1094- [id number] 9e 9t3303-2 00:00:00 00:00:00 Visit 3004-5031 990-4338-a -iy7d-p82 u9p-u74c95 t1529gjh8 67dca9 2022-01-29 2022-01-29 Outpatient 42l24jvp- [id number] a21qnn-7 00:00:00 00:00:00 Visit 78x1-4zl8 6i4-3lz1-x -qq16-90e w67-68wm09 n716zs23k 8fd07d 2022-01-24 2022-01-24 Outpatient x06y0cga- [id number] d8 7j6pdk-9 00:00:00 00:00:00 Visit 710f-4461 10f-4461-b -gf10-895 h05-3272b4 8p20entip 6bfbbd 2021-12-25 2021-12-25 Outpatient 787s019m- [id number] 2o481h-8 00:00:00 00:00:00 Visit 38ca-4797 8ca-4797-8 -8886- 886-caef88 n2211bu9v 71be9c 2020-08-23 2020-08-23 [facility] [id number] Univers 00:00:00 00:00:00 Outreach [facility] 350.1.13.10 i ty of [facility] [place] [id number] [address] 2020-08-23 2020-08-23 Patient Angel [facility] [id number] 00:00:00 00:00:00 Outreach [facility] 350.1.13.10 [facility] 4.2.7.2.686 [facility] [id number] Results Test Description Test Time Test Comments Results Result Comments Source CULTURE, URINE 2022-02-01 SPECIMEN NUMBER: 10:17:33 [id number] CULTURE, URINE SPECIMEN NUMBER: [id number] SPECIMEN COMMENT: URINE SOURCE: URINE REPORT STATUS: [...] ROUTINELY. ADDITIONAL OBSERVATIONS: 02/01/2022 10-50,000 CFU/ML UROGENITAL MCIHELA PRESENT NO COMMON PATHOGENS CULTURE, URINE 2022-02-01 00:00:00 Test Item Value Reference Range Interpretation Comme nts CULTURE, URINE (test code = 16979) SPECIMEN NUMBER: [id number] CULTURE, [id number] 00:00:00 Test Item Value Reference Range Interpretation Comments CULTURE, URINE (test SPECIMEN NUMBER: code = 02829) [id number] CULTURE, [id number] 00:00:00 Test Item Value Reference Range Interpretation Comments CULTURE, URINE (test SPECIMEN NUMBER: code = 45143) [id number] CULTURE, [id number] 00:00:00 Test Item Value Reference Range Interpretation Comments CULTURE, URINE (test SPECIMEN NUMBER: code = 87641) [id number] CULTURE, [id number] 00:00:00 Test Item Value Reference Range Interpretation Comments CULTURE, URINE (test SPECIMEN NUMBER: code = 54843) [id number] CULTURE, [id number] 00:00:00 Test Item Value Reference Range Interpretation Comments CULTURE, URINE (test SPECIMEN NUMBER: code = 92116) [id number] CULTURE, [id number] 00:00:00 Test Item Value Reference Range Interpretation Comments CULTURE, URINE (test SPECIMEN NUMBER: code = 82759) [id number] CULTURE, [id number] 00:00:00 Test Item Value Reference Range Interpretation Comments CULTURE, URINE (test SPECIMEN NUMBER: code = 52018) [id number] CULTURE, [id number] 00:00:00 Test Item Value Reference Range Interpretation Comments CULTURE, URINE (test SPECIMEN NUMBER: code = 69503) [id number] CULTURE, [id number] 00:00:00 Test Item Value Reference Range Interpretation Comments CULTURE, URINE (test SPECIMEN NUMBER: code = 82135) [id number] HEMOGLOBIN [id number] 09:09:10 Test Item Value Reference Range Interpretation Comments HEMOGLOBIN A1c >15.5 % 4.2-5.6 H FLYNN ANTONIO (test code = 80751) ASSOCIAT ION GUIDELINES FOR HGB A1C: PREDIABETES/INC REASED RISK . . . . . . . 5 .7-6.4% DIAGNOSIS OF DI ABETES . . . . . . . . . >=6 .5% WITH CONFIRMATION OR APPROPRIATE SYMPTOMS NOTE: ASSAY MAY BE AFFECTED BY HEMOGLOBINOPATH IES (SICKLE CELL ANEMIA, S- C DISEASE, OTHERS) OR LISA FICIALLY LOWERED BY DECR EASED RED CELL SURVIVAL ( HEMOLYTIC ANEMIAS, BLOOD LOSS, ETC.). CONSIDER ALTERN ATE TESTING OR LABORATORY C ONSULTATION. LIPID [id number] 05:23:43 Test Item Value Reference Range Interpretation [...] MOREINFORMATION , SEE CLIENT ANNOUNCE MENT AT [email or web address] RISK RATIO LDL/HDL 1.33 RATIO <3.22 (test code = 2238) COMPREHENSIVE METABOLIC [id number] 05:23:43 Test Item Value Reference Range Interpretation Comments GLUCOSE (test code = 138 MG/DL 70-99 H 2216) BUN (test code = 10 MG/DL 6-20 2207) CREATININE (test 0.31 MG/DL 0.60-1.30 L code = 2214) eGFR (2020 CKD-EPI) 134 >60 (test code = 91092) ML/MIN/1.73 CALC BUN/CREAT (test 32 RATIO 6-28 H code = 2235) SODIUM (test code = 140 MEQ/L 092-979 8415) POTASSIUM (test code 3.6 MEQ/L 3.5-5.4 = 2227) CHLORIDE (test code 103 MEQ/L 95-107 = 221) CARBON DIOXIDE (test 27 MEQ/L 19-31 code = 2206) CALCIUM (test code = 9.1 MG/DL 8.5-10.5 2208) PROTEIN, TOTAL (test 6.5 G/DL 6.1-8.3 code = 222) ALBUMIN (test code = 4.1 G/DL 3.5-5.2 2200) CALC GLOBULIN (test 2.4 G/DL 1.9-3.7 code = 2240) CALC A/G RATIO (test 1.7 RATIO 1.0-2.6 code = 2234) BILIRUBIN, TOTAL 0.2 MG/DL See_Comment [Automated message] (test code = 2207) The syste m which generated this result transmitted ref erence range: <=1.2. T he reference range was not used to int erpret this result as normal/abnormal . ALKALINE PHOSPHATASE 114 U/L 40-113 H (test code = 2204) AST (test code = 32 U/L 9-40 2217) ALT (test code = 46 U/L 5-40 H UNLESS OTH ERWISE 2218) INDICATED, ALL TESTING PERFORM ED [facility], [address] [place] [address] [facility] DIRECTOR: SARY LILLY M.D. CLIA NUMBER [id number] CAP ACCREDITATION N O. [id number] ALBUMIN/CREATININE RATIO, URINE, [id number] 04:42:57 Test Item Value Reference Range Interpretation Comments CREATININE, URINE, 48.4 MG/DL NOT ESTAB RANDOM (test code = 2072) ALBUMIN, URINE, 2.5 MG/DL NOT ESTAB RANDOM (test code = 34973) CALC ALBUMIN/CREAT, 52 MG/G <30 H Note: RND (test code = Albumin/Cre atinine 81200) ratio reference interval reflec ts ADA and NKF guideli ayleen. HEMOGLOBIN [id number] 00:00:00 Test Item Value Reference Range Interpretation Comments HEMOGLOBIN A1c (test code = 02348) >15.5 % HEMOGLOBIN [id number] 00:00:00 Test Item Value Reference Range Interpretation Comments HEMOGLOBIN A1c (test code = 55899) >15.5 % HEMOGLOBIN [id number] 00:00:00 Test Item Value Reference Range Interpretation Comments HEMOGLOBIN A1c (test code = 97411) >15.5 % LIPID [id number] 00:00:00 Test Item Value Reference Range Interpretation Comments CHOLESTEROL (test code = 2210) 205 MG/DL TRIGLYCERIDES (test code = 2232) 188 MG/DL HDL CHOLESTEROL (test code = 2220) 75 MG/DL CALC LDL CHOL (test code = 2237) 100 MG/DL RISK RATIO LDL/HDL (test code = 1.33 RATIO 8) LIPID [id number] 00:00:00 Test Item Value Reference Range Interpretation Comments CHOLESTEROL (test code = 2210) 205 MG/DL TRIGLYCERIDES (test code = 2232) 188 MG/DL HDL CHOLESTEROL (test code = 2220) 75 MG/DL CALC LDL CHOL (test code = 2237) 100 MG/DL RISK RATIO LDL/HDL (test code = 1.33 RATIO 2238) COMPREHENSIVE METABOLIC [id number] 00:00:00 Test Item Value Reference Range Interpretation Comments GLUCOSE (test code = 2217) 138 MG/DL BUN (test code = 2208) 10 MG/DL CREATININE (test code = 2214) 0.31 MG/DL eGFR (2020 CKD-EPI) (test 134 ML/MIN/1.73 code = 31133) CALC BUN/CREAT (test code = 32 RATIO 2235) SODIUM (test code = 2231) 140 MEQ/L POTASSIUM (test code = 2228) 3.6 MEQ/L CHLORIDE (test code = 2215) 103 MEQ/L CARBON DIOXIDE (test code = 27 MEQ/L 2205) CALCIUM (test code = 2209) 9.1 MG/DL PROTEIN, TOTAL (test code = 6.5 G/DL 2228) ALBUMIN (test code = 2201) 4.1 G/DL CALC GLOBULIN (test code = 2.4 G/DL 2239) CALC A/G RATIO (test code = 1.7 RATIO 2233) BILIRUBIN, TOTAL (test code = 0.2 MG/DL 2206) ALKALINE PHOSPHATASE (test 114 U/L code = 2204) AST (test code = 2218) 32 U/L ALT (test code = 2219) 46 U/L COMPREHENSIVE METABOLIC [id number] 00:00:00 Test Item Value Reference Range Interpretation Comments GLUCOSE (test code = 2217) 138 MG/DL BUN (test code = 2208) 10 MG/DL CREATININE (test code = 2214) 0.31 MG/DL eGFR (2020 CKD-EPI) (test 134 ML/MIN/1.73 code = 40086) CALC BUN/CREAT (test code = 32 RATIO 2235) SODIUM (test code = 2231) 140 MEQ/L POTASSIUM (test code = 2228) 3.6 MEQ/L CHLORIDE (test code = 2215) 103 MEQ/L CARBON DIOXIDE (test code = 27 MEQ/L 2205) CALCIUM (test code = 2209) 9.1 MG/DL PROTEIN, TOTAL (test code = 6.5 G/DL 2228) ALBUMIN (test code = 2201) 4.1 G/DL CALC GLOBULIN (test code = 2.4 G/DL 0) CALC A/G RATIO (test code = 1.7 RATIO 2234) BILIRUBIN, TOTAL (test code = 0.2 MG/DL 2206) ALKALINE PHOSPHATASE (test 114 U/L code = 2204) AST (test code = 2218) 32 U/L ALT (test code = 2219) 46 U/L ALBUMIN/CREATININE RATIO, RANDOM [id number] 00:00:00 Test Item Value Reference Range Interpretation Comments CREATININE, URINE, RANDOM (test 48.4 MG/DL code = 2072) ALBUMIN, URINE, RANDOM (test code 2.5 MG/DL = 99833) CALC ALBUMIN/CREAT, RND (test code 52 MG/G = 96245) ALBUMIN/CREATININE RATIO, RANDOM [id number] 00:00:00 Test Item Value Reference Range Interpretation Comments CREATININE, URINE, RANDOM (test 48.4 MG/DL code = 2072) ALBUMIN, URINE, RANDOM (test code 2.5 MG/DL = 89375) CALC ALBUMIN/CREAT, RND (test code 52 MG/G = 80342) HEMOGLOBIN [id number] 00:00:00 Test Item Value Reference Range Interpretation Comments HEMOGLOBIN A1c (test code = 94577) >15.5 % HEMOGLOBIN [id number] 00:00:00 Test Item Value Reference Range Interpretation Comments HEMOGLOBIN A1c (test code = 53792) >15.5 % HEMOGLOBIN [id number] 00:00:00 Test Item Value Reference Range Interpretation Comments HEMOGLOBIN A1c (test code = 75877) >15.5 % LIPID [id number] 00:00:00 Test Item Value Reference Range Interpretation Comments CHOLESTEROL (test code = 2210) 205 MG/DL TRIGLYCERIDES (test code = 2232) 188 MG/DL HDL CHOLESTEROL (test code = 2220) 75 MG/DL CALC LDL CHOL (test code = 2237) 100 MG/DL RISK RATIO LDL/HDL (test code = 1.33 RATIO 2238) LIPID [id number] 00:00:00 Test Item Value Reference Range Interpretation Comments CHOLESTEROL (test code = 2210) 205 MG/DL TRIGLYCERIDES (test code = 2232) 188 MG/DL HDL CHOLESTEROL (test code = 2220) 75 MG/DL CALC LDL CHOL (test code = 2237) 100 MG/DL RISK RATIO LDL/HDL (test code = 1.33 RATIO 2238) COMPREHENSIVE METABOLIC [id number] 00:00:00 Test Item Value Reference Range Interpretation Comments GLUCOSE (test code = 2217) 138 MG/DL BUN (test code = 2208) 10 MG/DL CREATININE (test code = 2214) 0.31 MG/DL eGFR (2020 CKD-EPI) (test 134 ML/MIN/1.73 code = 06091) CALC BUN/CREAT (test code = 32 RATIO 2235) SODIUM (test code = 2231) 140 MEQ/L POTASSIUM (test code = 2228) 3.6 MEQ/L CHLORIDE (test code = 2215) 103 MEQ/L CARBON DIOXIDE (test code = 27 MEQ/L 2205) CALCIUM (test code = 2209) 9.1 MG/DL PROTEIN, TOTAL (test code = 6.5 G/DL 2228) ALBUMIN (test code = 2201) 4.1 G/DL CALC GLOBULIN (test code = 2.4 G/DL 2239) CALC A/G RATIO (test code = 1.7 RATIO 2233) BILIRUBIN, TOTAL (test code = 0.2 MG/DL 2206) ALKALINE PHOSPHATASE (test 114 U/L code = 2204) AST (test code = 2218) 32 U/L ALT (test code = 2219) 46 U/L COMPREHENSIVE METABOLIC [id number] 00:00:00 Test Item Value Reference Range Interpretation Comments GLUCOSE (test code = 2217) 138 MG/DL BUN (test code = 2208) 10 MG/DL CREATININE (test code = 2214) 0.31 MG/DL eGFR (2020 CKD-EPI) (test 134 ML/MIN/1.73 code = 52741) CALC BUN/CREAT (test code = 32 RATIO 2235) SODIUM (test code = 2231) 140 MEQ/L POTASSIUM (test code = 2228) 3.6 MEQ/L CHLORIDE (test code = 2215) 103 MEQ/L CARBON DIOXIDE (test code = 27 MEQ/L 220) CALCIUM (test code = 2209) 9.1 MG/DL PROTEIN, TOTAL (test code = 6.5 G/DL 2228) ALBUMIN (test code = 2201) 4.1 G/DL CALC GLOBULIN (test code = 2.4 G/DL 2239) CALC A/G RATIO (test code = 1.7 RATIO 2234) BILIRUBIN, TOTAL (test code = 0.2 MG/DL 2206) ALKALINE PHOSPHATASE (test 114 U/L code = 2204) AST (test code = 2218) 32 U/L ALT (test code = 2219) 46 U/L ALBUMIN/CREATININE RATIO, RANDOM [id number] 00:00:00 Test Item Value Reference Range Interpretation Comments CREATININE, URINE, RANDOM (test 48.4 MG/DL code = 2072) ALBUMIN, URINE, RANDOM (test code 2.5 MG/DL = 87765) CALC ALBUMIN/CREAT, RND (test code 52 MG/G = 61103) ALBUMIN/CREATININE RATIO, RANDOM [id number] 00:00:00 Test Item Value Reference Range Interpretation Comments CREATININE, URINE, RANDOM (test 48.4 MG/DL code = 2072) ALBUMIN, URINE, RANDOM (test code 2.5 MG/DL = 90053) CALC ALBUMIN/CREAT, RND (test code 52 MG/G = 66052) HEMOGLOBIN [id number] 00:00:00 Test Item Value Reference Range Interpretation Comments HEMOGLOBIN A1c (test code = 42326) >15.5 % HEMOGLOBIN [id number] 00:00:00 Test Item Value Reference Range Interpretation Comments HEMOGLOBIN A1c (test code = 46378) >15.5 % HEMOGLOBIN [id number] 00:00:00 Test Item Value Reference Range Interpretation Comments HEMOGLOBIN A1c (test code = 73190) >15.5 % LIPID [id number] 00:00:00 Test Item Value Reference Range Interpretation Comments CHOLESTEROL (test code = 2210) 205 MG/DL TRIGLYCERIDES (test code = 2232) 188 MG/DL HDL CHOLESTEROL (test code = 2220) 75 MG/DL CALC LDL CHOL (test code = 2237) 100 MG/DL RISK RATIO LDL/HDL (test code = 1.33 RATIO 2238) LIPID [id number] 00:00:00 Test Item Value Reference Range Interpretation Comments CHOLESTEROL (test code = 2210) 205 MG/DL TRIGLYCERIDES (test code = 2232) 188 MG/DL HDL CHOLESTEROL (test code = 2220) 75 MG/DL CALC LDL CHOL (test code = 2237) 100 MG/DL RISK RATIO LDL/HDL (test code = 1.33 RATIO 2238) COMPREHENSIVE METABOLIC [id number] 00:00:00 Test Item Value Reference Range Interpretation Comments GLUCOSE (test code = 2217) 138 MG/DL BUN (test code = 2208) 10 MG/DL CREATININE (test code = 2214) 0.31 MG/DL eGFR (2020 CKD-EPI) (test 134 ML/MIN/1.73 code = 11265) CALC BUN/CREAT (test code = 32 RATIO 2235) SODIUM (test code = 2231) 140 MEQ/L POTASSIUM (test code = 2228) 3.6 MEQ/L CHLORIDE (test code = 2215) 103 MEQ/L CARBON DIOXIDE (test code = 27 MEQ/L 2205) CALCIUM (test code = 2209) 9.1 MG/DL PROTEIN, TOTAL (test code = 6.5 G/DL 2228) ALBUMIN (test code = 2201) 4.1 G/DL CALC GLOBULIN (test code = 2.4 G/DL 2239) CALC A/G RATIO (test code = 1.7 RATIO 4) BILIRUBIN, TOTAL (test code = 0.2 MG/DL 2206) ALKALINE PHOSPHATASE (test 114 U/L code = 2204) AST (test code = 2218) 32 U/L ALT (test code = 2219) 46 U/L COMPREHENSIVE METABOLIC [id number] 00:00:00 Test Item Value Reference Range Interpretation Comments GLUCOSE (test code = 2217) 138 MG/DL BUN (test code = 2208) 10 MG/DL CREATININE (test code = 2214) 0.31 MG/DL eGFR (2020 CKD-EPI) (test 134 ML/MIN/1.73 code = 34975) CALC BUN/CREAT (test code = 32 RATIO 2235) SODIUM (test code = 2231) 140 MEQ/L POTASSIUM (test code = 2228) 3.6 MEQ/L CHLORIDE (test code = 2215) 103 MEQ/L CARBON DIOXIDE (test code = 27 MEQ/L 220) CALCIUM (test code = 2209) 9.1 MG/DL PROTEIN, TOTAL (test code = 6.5 G/DL 2228) ALBUMIN (test code = 2201) 4.1 G/DL CALC GLOBULIN (test code = 2.4 G/DL 2239) CALC A/G RATIO (test code = 1.7 RATIO 2233) BILIRUBIN, TOTAL (test code = 0.2 MG/DL 2206) ALKALINE PHOSPHATASE (test 114 U/L code = 2204) AST (test code = 2218) 32 U/L ALT (test code = 2219) 46 U/L ALBUMIN/CREATININE RATIO, RANDOM [id number] 00:00:00 Test Item Value Reference Range Interpretation Comments CREATININE, URINE, RANDOM (test 48.4 MG/DL code = 2072) ALBUMIN, URINE, RANDOM (test code 2.5 MG/DL = 41970) CALC ALBUMIN/CREAT, RND (test code 52 MG/G = 95105) ALBUMIN/CREATININE RATIO, RANDOM [id number] 00:00:00 Test Item Value Reference Range Interpretation Comments CREATININE, URINE, RANDOM (test 48.4 MG/DL code = 2072) ALBUMIN, URINE, RANDOM (test code 2.5 MG/DL = 19768) CALC ALBUMIN/CREAT, RND (test code 52 MG/G = 75545) HEMOGLOBIN [id number] 00:00:00 Test Item Value Reference Range Interpretation Comments HEMOGLOBIN A1c (test code = 63992) >15.5 % HEMOGLOBIN [id number] 00:00:00 Test Item Value Reference Range Interpretation Comments HEMOGLOBIN A1c (test code = 17289) >15.5 % HEMOGLOBIN [id number] 00:00:00 Test Item Value Reference Range Interpretation Comments HEMOGLOBIN A1c (test code = 43238) >15.5 % LIPID [id number] 00:00:00 Test Item Value Reference Range Interpretation Comments CHOLESTEROL (test code = 2210) 205 MG/DL TRIGLYCERIDES (test code = 2232) 188 MG/DL HDL CHOLESTEROL (test code = 2220) 75 MG/DL CALC LDL CHOL (test code = 2237) 100 MG/DL RISK RATIO LDL/HDL (test code = 1.33 RATIO 2238) LIPID [id number] 00:00:00 Test Item Value Reference Range Interpretation Comments CHOLESTEROL (test code = 2210) 205 MG/DL TRIGLYCERIDES (test code = 2232) 188 MG/DL HDL CHOLESTEROL (test code = 2220) 75 MG/DL CALC LDL CHOL (test code = 2237) 100 MG/DL RISK RATIO LDL/HDL (test code = 1.33 RATIO 2238) COMPREHENSIVE METABOLIC [id number] 00:00:00 Test Item Value Reference Range Interpretation Comments GLUCOSE (test code = 2217) 138 MG/DL BUN (test code = 2208) 10 MG/DL CREATININE (test code = 2214) 0.31 MG/DL eGFR (2020 CKD-EPI) (test 134 ML/MIN/1.73 code = 82317) CALC BUN/CREAT (test code = 32 RATIO 2235) SODIUM (test code = 2231) 140 MEQ/L POTASSIUM (test code = 2228) 3.6 MEQ/L CHLORIDE (test code = 2215) 103 MEQ/L CARBON DIOXIDE (test code = 27 MEQ/L 2205) CALCIUM (test code = 2209) 9.1 MG/DL PROTEIN, TOTAL (test code = 6.5 G/DL 2228) ALBUMIN (test code = 2201) 4.1 G/DL CALC GLOBULIN (test code = 2.4 G/DL 2239) CALC A/G RATIO (test code = 1.7 RATIO 2234) BILIRUBIN, TOTAL (test code = 0.2 MG/DL 2206) ALKALINE PHOSPHATASE (test 114 U/L code = 2204) AST (test code = 2218) 32 U/L ALT (test code = 2219) 46 U/L COMPREHENSIVE METABOLIC [id number] 00:00:00 Test Item Value Reference Range Interpretation Comments GLUCOSE (test code = 2217) 138 MG/DL BUN (test code = 2208) 10 MG/DL CREATININE (test code = 2214) 0.31 MG/DL eGFR (2020 CKD-EPI) (test 134 ML/MIN/1.73 code = 34235) CALC BUN/CREAT (test code = 32 RATIO 2235) SODIUM (test code = 2231) 140 MEQ/L POTASSIUM (test code = 2228) 3.6 MEQ/L CHLORIDE (test code = 2215) 103 MEQ/L CARBON DIOXIDE (test code = 27 MEQ/L 220) CALCIUM (test code = 2209) 9.1 MG/DL PROTEIN, TOTAL (test code = 6.5 G/DL 2228) ALBUMIN (test code = 2201) 4.1 G/DL CALC GLOBULIN (test code = 2.4 G/DL 2239) CALC A/G RATIO (test code = 1.7 RATIO 4) BILIRUBIN, TOTAL (test code = 0.2 MG/DL 2206) ALKALINE PHOSPHATASE (test 114 U/L code = 2204) AST (test code = 2218) 32 U/L ALT (test code = 2219) 46 U/L ALBUMIN/CREATININE RATIO, RANDOM [id number] 00:00:00 Test Item Value Reference Range Interpretation Comments CREATININE, URINE, RANDOM (test 48.4 MG/DL code = 2072) ALBUMIN, URINE, RANDOM (test code 2.5 MG/DL = 18379) CALC ALBUMIN/CREAT, RND (test code 52 MG/G = 12414) ALBUMIN/CREATININE RATIO, RANDOM [id number] 00:00:00 Test Item Value Reference Range Interpretation Comments CREATININE, URINE, RANDOM (test 48.4 MG/DL code = 2072) ALBUMIN, URINE, RANDOM (test code 2.5 MG/DL = 80112) CALC ALBUMIN/CREAT, RND (test code 52 MG/G = 34049) HEMOGLOBIN [id number] 00:00:00 Test Item Value Reference Range Interpretation Comments HEMOGLOBIN A1c (test code = 64014) >15.5 % HEMOGLOBIN [id number] 00:00:00 Test Item Value Reference Range Interpretation Comments HEMOGLOBIN A1c (test code = 70540) >15.5 % HEMOGLOBIN [id number] 00:00:00 Test Item Value Reference Range Interpretation Comments HEMOGLOBIN A1c (test code = 13440) >15.5 % LIPID [id number] 00:00:00 Test Item Value Reference Range Interpretation Comments CHOLESTEROL (test code = 2210) 205 MG/DL TRIGLYCERIDES (test code = 2232) 188 MG/DL HDL CHOLESTEROL (test code = 2220) 75 MG/DL CALC LDL CHOL (test code = 2237) 100 MG/DL RISK RATIO LDL/HDL (test code = 1.33 RATIO 2238) LIPID [id number] 00:00:00 Test Item Value Reference Range Interpretation Comments CHOLESTEROL (test code = 2210) 205 MG/DL TRIGLYCERIDES (test code = 2232) 188 MG/DL HDL CHOLESTEROL (test code = 2220) 75 MG/DL CALC LDL CHOL (test code = 2237) 100 MG/DL RISK RATIO LDL/HDL (test code = 1.33 RATIO 2238) COMPREHENSIVE METABOLIC [id number] 00:00:00 Test Item Value Reference Range Interpretation Comments GLUCOSE (test code = 2217) 138 MG/DL BUN (test code = 2208) 10 MG/DL CREATININE (test code = 2214) 0.31 MG/DL eGFR (2020 CKD-EPI) (test 134 ML/MIN/1.73 code = 14376) CALC BUN/CREAT (test code = 32 RATIO 2235) SODIUM (test code = 2231) 140 MEQ/L POTASSIUM (test code = 2228) 3.6 MEQ/L CHLORIDE (test code = 2215) 103 MEQ/L CARBON DIOXIDE (test code = 27 MEQ/L 2205) CALCIUM (test code = 2209) 9.1 MG/DL PROTEIN, TOTAL (test code = 6.5 G/DL 2228) ALBUMIN (test code = 2201) 4.1 G/DL CALC GLOBULIN (test code = 2.4 G/DL 2239) CALC A/G RATIO (test code = 1.7 RATIO 2233) BILIRUBIN, TOTAL (test code = 0.2 MG/DL 2206) ALKALINE PHOSPHATASE (test 114 U/L code = 2204) AST (test code = 2218) 32 U/L ALT (test code = 2219) 46 U/L COMPREHENSIVE METABOLIC [id number] 00:00:00 Test Item Value Reference Range Interpretation Comments GLUCOSE (test code = 2217) 138 MG/DL BUN (test code = 2208) 10 MG/DL CREATININE (test code = 2214) 0.31 MG/DL eGFR (2020 CKD-EPI) (test 134 ML/MIN/1.73 code = 59840) CALC BUN/CREAT (test code = 32 RATIO 2235) SODIUM (test code = 2231) 140 MEQ/L POTASSIUM (test code = 2228) 3.6 MEQ/L CHLORIDE (test code = 2215) 103 MEQ/L CARBON DIOXIDE (test code = 27 MEQ/L 2205) CALCIUM (test code = 2209) 9.1 MG/DL PROTEIN, TOTAL (test code = 6.5 G/DL 2228) ALBUMIN (test code = 2201) 4.1 G/DL CALC GLOBULIN (test code = 2.4 G/DL 2240) CALC A/G RATIO (test code = 1.7 RATIO 2233) BILIRUBIN, TOTAL (test code = 0.2 MG/DL 2206) ALKALINE PHOSPHATASE (test 114 U/L code = 2204) AST (test code = 2218) 32 U/L ALT (test code = 2219) 46 U/L ALBUMIN/CREATININE RATIO, RANDOM [id number] 00:00:00 Test Item Value Reference Range Interpretation Comments CREATININE, URINE, RANDOM (test 48.4 MG/DL code = 2072) ALBUMIN, URINE, RANDOM (test code 2.5 MG/DL = 49593) CALC ALBUMIN/CREAT, RND (test code 52 MG/G = 37370) ALBUMIN/CREATININE RATIO, RANDOM [id number] 00:00:00 Test Item Value Reference Range Interpretation Comments CREATININE, URINE, RANDOM (test 48.4 MG/DL code = 2072) ALBUMIN, URINE, RANDOM (test code 2.5 MG/DL = 54059) CALC ALBUMIN/CREAT, RND (test code 52 MG/G = 95696) SARS-CoV-2 (COVID-19), RT-PCR/[id number] 08:05:41 Test Item Value Reference Interpretation Comments Range SARS-CoV-2 NEGATIVE SEE NOTE SARS-CoV-2 RNA NOT INTERPRETATION DETECTEDNegat riri (test code = 85252) results do not preclude SARS-CoV-2 infe ction [...] code = [place]CIF[place]: [place] [address]) Almaz Ely [place] l-Time RT-PCR. The exp ected result or refer ence range is NEGATI VE (Not Detected). For more information reg arding COVID-19 testin g to include clinicalinforma tion, methodology det ail, intended use, F DA authorization andrecommended fact sheets for payton ents or healthcare prov iders, see [employer] Announcement: SARS-CoV-2 (COV ID-19) by NAAT at URL below (note,fact shee ts are provided by met hod given in report:[email or web address]:// [email or web address] [email or web address] [email or web address] Alternatively, see downloadable PD F fact sheet at:https://www. [employer]/COVID-19-RT -PCR UNLESS OTHERWIS E INDICATED, ALL TESTING PERFORMED [facility] [address] [place] [address] 4 LABORATORY DIRE CTOR: SARY HARRY M.D. CLIA NUMBER [id number] [place] [id number] SARS-CoV-2 (COVID-19) by RT-PCR (HIGH RISK)2021-08-29 00:00:00 Test Item Value Reference Range Interpretation Comments SARS-CoV-2 INTERPRETATION (test NEGATIVE code = 38124) SOURCE (test code = 43677) NOT SPECIFIED SARS-CoV-2 (COVID-19) by RT-PCR (HIGH RISK)2021-08-29 00:00:00 Test Item Value Reference Range Interpretation Comments SARS-CoV-2 INTERPRETATION (test NEGATIVE code = 91318) SOURCE (test code = 46708) NOT SPECIFIED SARS-CoV-2 (COVID-19) by RT-PCR (HIGH RISK)2021-08-29 00:00:00 Test Item Value Reference Range Interpretation Comments SARS-CoV-2 INTERPRETATION (test NEGATIVE code = 31895) SOURCE (test code = 07407) NOT SPECIFIED SARS-CoV-2 (COVID-19) by RT-PCR (HIGH RISK)2021-08-29 00:00:00 Test Item Value Reference Range Interpretation Comments SARS-CoV-2 INTERPRETATION (test NEGATIVE code = 76301) SOURCE (test code = 25736) NOT SPECIFIED SARS-CoV-2 (COVID-19) by RT-PCR (HIGH RISK)2021-08-29 00:00:00 Test Item Value Reference Range Interpretation Comments SARS-CoV-2 INTERPRETATION (test NEGATIVE code = 39590) SOURCE (test code = 17598) NOT SPECIFIED SARS-CoV-2 (COVID-19) by RT-PCR (HIGH RISK)2021-08-29 00:00:00 Test Item Value Reference Range Interpretation Comments SARS-CoV-2 INTERPRETATION (test NEGATIVE code = 51438) SOURCE (test code = 42628) NOT SPECIFIED SARS-CoV-2 (COVID-19) by RT-PCR (HIGH RISK)2021-08-29 00:00:00 Test Item Value Reference Range Interpretation Comments SARS-CoV-2 INTERPRETATION (test NEGATIVE code = 60908) SOURCE (test code = 73444) NOT SPECIFIED SARS-CoV-2 (COVID-19) by RT-PCR (HIGH RISK)2021-08-29 00:00:00 Test Item Value Reference Range Interpretation Comments SARS-CoV-2 INTERPRETATION (test NEGATIVE code = 95245) SOURCE (test code = 94346) NOT SPECIFIED SARS-CoV-2 (COVID-19) by RT-PCR (HIGH RISK)2021-08-29 00:00:00 Test Item Value Reference Range Interpretation Comments SARS-CoV-2 INTERPRETATION (test NEGATIVE code = 19139) SOURCE (test code = 88065) NOT SPECIFIED SARS-CoV-2 (COVID-19) by RT-PCR (HIGH RISK)2021-08-29 00:00:00 Test Item Value Reference Range Interpretation Comments SARS-CoV-2 INTERPRETATION (test NEGATIVE code = 08798) SOURCE (test code = 02944) NOT SPECIFIED SARS-CoV-2 (COVID-19) by RT-PCR (HIGH RISK)2021-08-29 00:00:00 Test Item Value Reference Range Interpretation Comments SARS-CoV-2 INTERPRETATION (test NEGATIVE code = 60773) SOURCE (test code = 67396) NOT SPECIFIED SARS-CoV-2 (COVID-19) by RT-PCR (HIGH RISK)2021-08-29 00:00:00 Test Item Value Reference Range Interpretation Comments SARS-CoV-2 INTERPRETATION (test NEGATIVE code = 87185) SOURCE (test code = 14747) NOT SPECIFIED SARS-CoV-2 (COVID-19), RT-PCR/[id number] 14:35:57 Test Item Value Reference Interpretation Comments Range SARS-CoV-2 POSITIVE SEE NOTE A SARS-CoV-2 RNA INTERPRETATION DETECTEDPosit riri results (test code = 73507) are naomie cative of the presence of [...] code = NOT SPECIFIED Note: [place] [address]) Almaz Ely [place] l-Time RT-PCR. The exp ected result or [...] provided by met hod given in report:https:// www.[employer]/clinician s/client-c ommunications/ Alternatively, see downloadable PD F fact sheet at:https://www. [employer] m/YRPVE-69-BE-P CR UNLESS OTHERWISE INDIC ATED, ALL TESTING PERFORM [facility], [address] [place] [id number] LABORATORY DIRE CTOR: Alesha ROSAS. CLIA NUMBER [id number] CAP ACCREDITATION N O. [id number] SARS-CoV-2 (COVID-19) by RT-PCR (HIGH RISK)2021-06-28 00:00:00 Test Item Value Reference Range Interpretation Comments SARS-CoV-2 INTERPRETATION (test POSITIVE code = 03769) SOURCE (test code = 94877) NOT SPECIFIED SARS-CoV-2 (COVID-19) by RT-PCR (HIGH RISK)2021-06-28 00:00:00 Test Item Value Reference Range Interpretation Comments SARS-CoV-2 INTERPRETATION (test POSITIVE code = 73969) SOURCE (test code = 49533) NOT SPECIFIED SARS-CoV-2 (COVID-19) by RT-PCR (HIGH RISK)2021-06-28 00:00:00 Test Item Value Reference Range Interpretation Comments SARS-CoV-2 INTERPRETATION (test POSITIVE code = 44029) SOURCE (test code = 54764) NOT SPECIFIED SARS-CoV-2 (COVID-19) by RT-PCR (HIGH RISK)2021-06-28 00:00:00 Test Item Value Reference Range Interpretation Comments SARS-CoV-2 INTERPRETATION (test POSITIVE code = 27528) SOURCE (test code = 48459) NOT SPECIFIED SARS-CoV-2 (COVID-19) by RT-PCR (HIGH RISK)2021-06-28 00:00:00 Test Item Value Reference Range Interpretation Comments SARS-CoV-2 INTERPRETATION (test POSITIVE code = 95570) SOURCE (test code = 96839) NOT SPECIFIED SARS-CoV-2 (COVID-19) by RT-PCR (HIGH RISK)2021-06-28 00:00:00 Test Item Value Reference Range Interpretation Comments SARS-CoV-2 INTERPRETATION (test POSITIVE code = 92161) SOURCE (test code = 85677) NOT SPECIFIED SARS-CoV-2 (COVID-19) by RT-PCR (HIGH RISK)2021-06-28 00:00:00 Test Item Value Reference Range Interpretation Comments SARS-CoV-2 INTERPRETATION (test POSITIVE code = 19922) SOURCE (test code = 54923) NOT SPECIFIED SARS-CoV-2 (COVID-19) by RT-PCR (HIGH RISK)2021-06-28 00:00:00 Test Item Value Reference Range Interpretation Comments SARS-CoV-2 INTERPRETATION (test POSITIVE code = 95296) SOURCE (test code = 46036) NOT SPECIFIED SARS-CoV-2 (COVID-19) by RT-PCR (HIGH RISK)2021-06-28 00:00:00 Test Item Value Reference Range Interpretation Comments SARS-CoV-2 INTERPRETATION (test POSITIVE code = 58598) SOURCE (test code = 89645) NOT SPECIFIED SARS-CoV-2 (COVID-19) by RT-PCR (HIGH RISK)2021-06-28 00:00:00 Test Item Value Reference Range Interpretation Comments SARS-CoV-2 INTERPRETATION (test POSITIVE code = 39182) SOURCE (test code = 56471) NOT SPECIFIED SARS-CoV-2 (COVID-19) by RT-PCR (HIGH RISK)2021-06-28 00:00:00 Test Item Value Reference Range Interpretation Comments SARS-CoV-2 INTERPRETATION (test POSITIVE code = 14061) SOURCE (test code = 52290) NOT SPECIFIED SARS-CoV-2 (COVID-19) by RT-PCR (HIGH RISK)2021-06-28 00:00:00 Test Item Value Reference Range Interpretation Comments SARS-CoV-2 INTERPRETATION (test POSITIVE code = 47124) SOURCE (test code = 93818) NOT SPECIFIED REFLEXED LDL [REFLEX]2021-03-30 00:00:00 Test Item Value Reference Range Interpretation Comments LDL DIRECT (test code = 4228) 123 MG/DL REFLEXED LDL [REFLEX]2021-03-30 00:00:00 Test Item Value Reference Range Interpretation Comments LDL DIRECT (test code = 4228) 123 MG/DL REFLEXED LDL [REFLEX]2021-03-30 00:00:00 Test Item Value Reference Range Interpretation Comments LDL DIRECT (test code = 4228) 123 MG/DL REFLEXED LDL [REFLEX]2021-03-30 00:00:00 Test Item Value Reference Range Interpretation Comments LDL DIRECT (test code = 4228) 123 MG/DL REFLEXED LDL [REFLEX]2021-03-30 00:00:00 Test Item Value Reference Range Interpretation Comments LDL DIRECT (test code = 4228) 123 MG/DL REFLEXED LDL [REFLEX]2021-03-30 00:00:00 Test Item Value Reference Range Interpretation Comments LDL DIRECT (test code = 4228) 123 MG/DL LIPID PANEL WITH REFLEX DIRECT [id number] 00:00:00 Test Item Value Reference Range Interpretation Comments CHOLESTEROL (test code = 2210) 294 MG/DL TRIGLYCERIDES (test code = 2232) 1828 MG/DL HDL CHOLESTEROL (test code = 42 MG/DL 2220) CALC LDL CHOL (test code = 2237) (NOTE) MG/DL RISK RATIO LDL/HDL (test code = (NOTE) RATIO 2238) LIPID PANEL WITH REFLEX DIRECT [id number] 00:00:00 Test Item Value Reference Range Interpretation Comments CHOLESTEROL (test code = 2210) 294 MG/DL TRIGLYCERIDES (test code = 2232) 1828 MG/DL HDL CHOLESTEROL (test code = 42 MG/DL 2220) CALC LDL CHOL (test code = 2237) (NOTE) MG/DL RISK RATIO LDL/HDL (test code = (NOTE) RATIO 2238) HEMOGLOBIN [id number] 00:00:00 Test Item Value Reference Range Interpretation Comments HEMOGLOBIN A1c (test code = 92874) 14.2 % HEMOGLOBIN [id number] 00:00:00 Test Item Value Reference Range Interpretation Comments HEMOGLOBIN A1c (test code = 19669) 14.2 % HEMOGLOBIN [id number] 00:00:00 Test Item Value Reference Range Interpretation Comments HEMOGLOBIN A1c (test code = 93957) 14.2 % C-REACTIVE [id number] 00:00:00 Test Item Value Reference Range Interpretation Comments C-REACTIVE PROTEIN (test code = <0.3 MG/DL 3513) C-REACTIVE [id number] 00:00:00 Test Item Value Reference Range Interpretation Comments C-REACTIVE PROTEIN (test code = <0.3 MG/DL 3513) SEDIMENTATION [id number] 00:00:00 Test Item Value Reference Range Interpretation Comments SEDIMENTATION RATE (test code = 12 MM/HOUR 1017) SEDIMENTATION [id number] 00:00:00 Test Item Value Reference Range Interpretation Comments SEDIMENTATION RATE (test code = 12 MM/HOUR 1017) CBC W/AUTO [id number] 00:00:00 Test Item Value Reference Range Interpretation [...] NUCLEATED RBCS (test code = 0.00 K/UL 82395) CBC W/AUTO [id number] 00:00:00 Test Item Value Reference Range Interpretation [...] NUCLEATED RBCS (test code = 0.00 K/UL 63404) CBC W/AUTO [id number] 00:00:00 Test Item Value Reference Range Interpretation [...] NUCLEATED RBCS (test code = 0.00 K/UL 04277) COMPREHENSIVE METABOLIC [id number] 00:00:00 Test Item Value Reference Range Interpretation Comments GLUCOSE (test code = 2217) 589 MG/DL BUN (test code = 2208) 18 MG/DL CREATININE (test code = 2214) 0.59 MG/DL eGFR AMER. (test code 131 ML/MIN/1.73 = 22447) eGFR NON- AMER. (test 113 ML/MIN/1.73 code = 26481) CALC BUN/CREAT (test code = 31 RATIO [...] BILIRUBIN, TOTAL (test code = 0.2 MG/DL 220) ALKALINE PHOSPHATASE (test 225 U/L code = 2204) AST (test code = 2218) <5 U/L ALT (test code = 2219) 28 U/L COMPREHENSIVE METABOLIC [id number] 00:00:00 Test Item Value Reference Range Interpretation Comments GLUCOSE (test code = 2217) 589 MG/DL BUN (test code = 2208) 18 MG/DL CREATININE (test code = 2214) 0.59 MG/DL eGFR AMER. (test code 131 ML/MIN/1.73 = 70376) eGFR NON- AMER. (test 113 ML/MIN/1.73 code = 16131) CALC BUN/CREAT (test code = 31 RATIO 2235) SODIUM (test code = 2231) 128 MEQ/L POTASSIUM (test code = 2228) 4.4 MEQ/L CHLORIDE (test code = 2215) 87 MEQ/L CARBON DIOXIDE (test code = 21 MEQ/L 2205) CALCIUM (test code = 2209) 9.6 MG/DL PROTEIN, TOTAL (test code = 7.0 G/DL 2228) ALBUMIN (test code = 2201) 4.5 G/DL CALC GLOBULIN (test code = 2.5 G/DL 2240) CALC A/G RATIO (test code = 1.8 RATIO 2234) BILIRUBIN, TOTAL (test code = 0.2 MG/DL 2207) ALKALINE PHOSPHATASE (test 225 U/L code = 2204) AST (test code = 2218) <5 U/L ALT (test code = 2219) 28 U/L LIPID PANEL WITH REFLEX DIRECT [id number] 00:00:00 Test Item Value Reference Range Interpretation Comments CHOLESTEROL (test code = 2210) 294 MG/DL TRIGLYCERIDES (test code = 2232) 1828 MG/DL HDL CHOLESTEROL (test code = 42 MG/DL 2220) CALC LDL CHOL (test code = 2237) (NOTE) MG/DL RISK RATIO LDL/HDL (test code = (NOTE) RATIO 2238) LIPID PANEL WITH REFLEX DIRECT [id number] 00:00:00 Test Item Value Reference Range Interpretation Comments CHOLESTEROL (test code = 2210) 294 MG/DL TRIGLYCERIDES (test code = 2232) 1828 MG/DL HDL CHOLESTEROL (test code = 42 MG/DL 2220) CALC LDL CHOL (test code = 2237) (NOTE) MG/DL RISK RATIO LDL/HDL (test code = (NOTE) RATIO 2238) HEMOGLOBIN [id number] 00:00:00 Test Item Value Reference Range Interpretation Comments HEMOGLOBIN A1c (test code = 09333) 14.2 % HEMOGLOBIN [id number] 00:00:00 Test Item Value Reference Range Interpretation Comments HEMOGLOBIN A1c (test code = 17631) 14.2 % HEMOGLOBIN [id number] 00:00:00 Test Item Value Reference Range Interpretation Comments HEMOGLOBIN A1c (test code = 10439) 14.2 % C-REACTIVE [id number] 00:00:00 Test Item Value Reference Range Interpretation Comments C-REACTIVE PROTEIN (test code = <0.3 MG/DL 3513) C-REACTIVE [id number] 00:00:00 Test Item Value Reference Range Interpretation Comments C-REACTIVE PROTEIN (test code = <0.3 MG/DL 3513) SEDIMENTATION [id number] 00:00:00 Test Item Value Reference Range Interpretation Comments SEDIMENTATION RATE (test code = 12 MM/HOUR 1017) SEDIMENTATION [id number] 00:00:00 Test Item Value Reference Range Interpretation Comments SEDIMENTATION RATE (test code = 12 MM/HOUR 1017) CBC W/AUTO [id number] 00:00:00 Test Item Value Reference Range Interpretation [...] NUCLEATED RBCS (test code = 0.00 K/UL 74809) CBC W/AUTO [id number] 00:00:00 Test Item Value Reference Range Interpretation [...] NUCLEATED RBCS (test code = 0.00 K/UL 43676) CBC W/AUTO [id number] 00:00:00 Test Item Value Reference Range Interpretation [...] NUCLEATED RBCS (test code = 0.00 K/UL 15277) CBC W/AUTO [id number] 00:00:00 Test Item Value Reference Range Interpretation [...] NUCLEATED RBCS (test code = 0.00 K/UL 64482) CBC W/AUTO [id number] 00:00:00 Test Item Value Reference Range Interpretation [...] NUCLEATED RBCS (test code = 0.00 K/UL 26151) COMPREHENSIVE METABOLIC [id number] 00:00:00 Test Item Value Reference Range Interpretation Comments GLUCOSE (test code = 2217) 589 MG/DL BUN (test code = 2208) 18 MG/DL CREATININE (test code = 2214) 0.59 MG/DL eGFR AMER. (test code 131 ML/MIN/1.73 = 13763) eGFR NON- AMER. (test 113 ML/MIN/1.73 code = 61363) CALC BUN/CREAT (test code = 31 RATIO [...] CALC GLOBULIN (test code = 2.5 G/DL 0) CALC A/G RATIO (test code = 1.8 RATIO 4) BILIRUBIN, TOTAL (test code = 0.2 MG/DL 2206) ALKALINE PHOSPHATASE (test 225 U/L code = 2204) AST (test code = 2218) <5 U/L ALT (test code = 2219) 28 U/L COMPREHENSIVE METABOLIC [id number] 00:00:00 Test Item Value Reference Range Interpretation Comments GLUCOSE (test code = 2217) 589 MG/DL BUN (test code = 2208) 18 MG/DL CREATININE (test code = 2214) 0.59 MG/DL eGFR AMER. (test code 131 ML/MIN/1.73 = 41092) eGFR NON- AMER. (test 113 ML/MIN/1.73 code = 19432) CALC BUN/CREAT (test code = 31 RATIO 2235) SODIUM (test code = 2231) 128 MEQ/L POTASSIUM (test code = 2228) 4.4 MEQ/L CHLORIDE (test code = 2215) 87 MEQ/L CARBON DIOXIDE (test code = 21 MEQ/L 2206) CALCIUM (test code = 2209) 9.6 MG/DL PROTEIN, TOTAL (test code = 7.0 G/DL 2229) ALBUMIN (test code = 2201) 4.5 G/DL CALC GLOBULIN (test code = 2.5 G/DL 2240) CALC A/G RATIO (test code = 1.8 RATIO 2234) BILIRUBIN, TOTAL (test code = 0.2 MG/DL 2207) ALKALINE PHOSPHATASE (test 225 U/L code = 2204) AST (test code = 2218) <5 U/L ALT (test code = 2219) 28 U/L LIPID PANEL WITH REFLEX DIRECT [id number] 00:00:00 Test Item Value Reference Range Interpretation Comments CHOLESTEROL (test code = 2210) 294 MG/DL TRIGLYCERIDES (test code = 2232) 1828 MG/DL HDL CHOLESTEROL (test code = 42 MG/DL 2220) CALC LDL CHOL (test code = 2237) (NOTE) MG/DL RISK RATIO LDL/HDL (test code = (NOTE) RATIO 2238) LIPID PANEL WITH REFLEX DIRECT [id number] 00:00:00 Test Item Value Reference Range Interpretation Comments CHOLESTEROL (test code = 2210) 294 MG/DL TRIGLYCERIDES (test code = 2232) 1828 MG/DL HDL CHOLESTEROL (test code = 42 MG/DL 2220) CALC LDL CHOL (test code = 2237) (NOTE) MG/DL RISK RATIO LDL/HDL (test code = (NOTE) RATIO 2238) HEMOGLOBIN [id number] 00:00:00 Test Item Value Reference Range Interpretation Comments HEMOGLOBIN A1c (test code = 78133) 14.2 % HEMOGLOBIN [id number] 00:00:00 Test Item Value Reference Range Interpretation Comments HEMOGLOBIN A1c (test code = 33135) 14.2 % HEMOGLOBIN [id number] 00:00:00 Test Item Value Reference Range Interpretation Comments HEMOGLOBIN A1c (test code = 89012) 14.2 % C-REACTIVE [id number] 00:00:00 Test Item Value Reference Range Interpretation Comments C-REACTIVE PROTEIN (test code = <0.3 MG/DL 3513) C-REACTIVE [id number] 00:00:00 Test Item Value Reference Range Interpretation Comments C-REACTIVE PROTEIN (test code = <0.3 MG/DL 3513) SEDIMENTATION [id number] 00:00:00 Test Item Value Reference Range Interpretation Comments SEDIMENTATION RATE (test code = 12 MM/HOUR 1017) SEDIMENTATION [id number] 00:00:00 Test Item Value Reference Range Interpretation Comments SEDIMENTATION RATE (test code = 12 MM/HOUR 1017) CBC W/AUTO [id number] 00:00:00 Test Item Value Reference Range Interpretation [...] NUCLEATED RBCS (test code = 0.00 K/UL 24761) COMPREHENSIVE METABOLIC [id number] 00:00:00 Test Item Value Reference Range Interpretation Comments GLUCOSE (test code = 2217) 589 MG/DL BUN (test code = 2208) 18 MG/DL CREATININE (test code = 2214) 0.59 MG/DL eGFR AMER. (test code 131 ML/MIN/1.73 = 88226) eGFR NON- AMER. (test 113 ML/MIN/1.73 code = 99159) CALC BUN/CREAT (test code = 31 RATIO 2235) SODIUM (test code = 2231) 128 MEQ/L POTASSIUM (test code = 2228) 4.4 MEQ/L CHLORIDE (test code = 2215) 87 MEQ/L CARBON DIOXIDE (test code = 21 MEQ/L 2206) CALCIUM (test code = 2209) 9.6 MG/DL PROTEIN, TOTAL (test code = 7.0 G/DL 2229) ALBUMIN (test code = 2201) 4.5 G/DL CALC GLOBULIN (test code = 2.5 G/DL 2240) CALC A/G RATIO (test code = 1.8 RATIO 2234) BILIRUBIN, TOTAL (test code = 0.2 MG/DL 2206) ALKALINE PHOSPHATASE (test 225 U/L code = 2204) AST (test code = 2218) <5 U/L ALT (test code = 2219) 28 U/L COMPREHENSIVE METABOLIC [id number] 00:00:00 Test Item Value Reference Range Interpretation Comments GLUCOSE (test code = 2217) 589 MG/DL BUN (test code = 2208) 18 MG/DL CREATININE (test code = 2214) 0.59 MG/DL eGFR AMER. (test code 131 ML/MIN/1.73 = 08752) eGFR NON- AMER. (test 113 ML/MIN/1.73 code = 50265) CALC BUN/CREAT (test code = 31 RATIO 2235) SODIUM (test code = 2231) 128 MEQ/L POTASSIUM (test code = 2228) 4.4 MEQ/L CHLORIDE (test code = 2215) 87 MEQ/L CARBON DIOXIDE (test code = 21 MEQ/L 2205) CALCIUM (test code = 2209) 9.6 MG/DL PROTEIN, TOTAL (test code = 7.0 G/DL 9) ALBUMIN (test code = 2201) 4.5 G/DL CALC GLOBULIN (test code = 2.5 G/DL 2240) CALC A/G RATIO (test code = 1.8 RATIO 2234) BILIRUBIN, TOTAL (test code = 0.2 MG/DL 2206) ALKALINE PHOSPHATASE (test 225 U/L code = 2204) AST (test code = 2218) <5 U/L ALT (test code = 2219) 28 U/L LIPID PANEL WITH REFLEX DIRECT [id number] 00:00:00 Test Item Value Reference Range Interpretation Comments CHOLESTEROL (test code = 2210) 294 MG/DL TRIGLYCERIDES (test code = 2232) 1828 MG/DL HDL CHOLESTEROL (test code = 42 MG/DL 2220) CALC LDL CHOL (test code = 2237) (NOTE) MG/DL RISK RATIO LDL/HDL (test code = (NOTE) RATIO 2238) LIPID PANEL WITH REFLEX DIRECT [id number] 00:00:00 Test Item Value Reference Range Interpretation Comments CHOLESTEROL (test code = 2210) 294 MG/DL TRIGLYCERIDES (test code = 2232) 1828 MG/DL HDL CHOLESTEROL (test code = 42 MG/DL 2220) CALC LDL CHOL (test code = 2237) (NOTE) MG/DL RISK RATIO LDL/HDL (test code = (NOTE) RATIO 2238) HEMOGLOBIN [id number] 00:00:00 Test Item Value Reference Range Interpretation Comments HEMOGLOBIN A1c (test code = 27974) 14.2 % HEMOGLOBIN [id number] 00:00:00 Test Item Value Reference Range Interpretation Comments HEMOGLOBIN A1c (test code = 53120) 14.2 % HEMOGLOBIN [id number] 00:00:00 Test Item Value Reference Range Interpretation Comments HEMOGLOBIN A1c (test code = 05000) 14.2 % C-REACTIVE [id number] 00:00:00 Test Item Value Reference Range Interpretation Comments C-REACTIVE PROTEIN (test code = <0.3 MG/DL 3513) C-REACTIVE [id number] 00:00:00 Test Item Value Reference Range Interpretation Comments C-REACTIVE PROTEIN (test code = <0.3 MG/DL 3513) SEDIMENTATION [id number] 00:00:00 Test Item Value Reference Range Interpretation Comments SEDIMENTATION RATE (test code = 12 MM/HOUR 1017) SEDIMENTATION [id number] 00:00:00 Test Item Value Reference Range Interpretation Comments SEDIMENTATION RATE (test code = 12 MM/HOUR 1017) CBC W/AUTO [id number] 00:00:00 Test Item Value Reference Range Interpretation [...] NUCLEATED RBCS (test code = 0.00 K/UL 15080) CBC W/AUTO [id number] 00:00:00 Test Item Value Reference Range Interpretation [...] NUCLEATED RBCS (test code = 0.00 K/UL 10711) CBC W/AUTO [id number] 00:00:00 Test Item Value Reference Range Interpretation [...] NUCLEATED RBCS (test code = 0.00 K/UL 88001) COMPREHENSIVE METABOLIC [id number] 00:00:00 Test Item Value Reference Range Interpretation Comments GLUCOSE (test code = 2217) 589 MG/DL BUN (test code = 2208) 18 MG/DL CREATININE (test code = 2214) 0.59 MG/DL eGFR AMER. (test code 131 ML/MIN/1.73 = 76144) eGFR NON- AMER. (test 113 ML/MIN/1.73 code = 89107) CALC BUN/CREAT (test code = 31 RATIO [...] code = 2219) 28 U/L COMPREHENSIVE METABOLIC [id number] 00:00:00 Test Item Value Reference Range Interpretation Comments GLUCOSE (test code = 2217) 589 MG/DL BUN (test code = 2208) 18 MG/DL CREATININE (test code = 2214) 0.59 MG/DL eGFR AMER. (test code 131 ML/MIN/1.73 = 94233) eGFR NON- AMER. (test 113 ML/MIN/1.73 code = 52389) CALC BUN/CREAT (test code = 31 RATIO [...] 28 U/L LIPID PANEL WITH REFLEX DIRECT [id number] 00:00:00 Test Item Value Reference Range Interpretation Comments CHOLESTEROL (test code = 2210) 294 MG/DL TRIGLYCERIDES (test code = 2232) 1828 MG/DL HDL CHOLESTEROL (test code = 42 MG/DL 2220) CALC LDL CHOL (test code = 2237) (NOTE) MG/DL RISK RATIO LDL/HDL (test code = (NOTE) RATIO 2238) LIPID PANEL WITH REFLEX DIRECT [id number] 00:00:00 Test Item Value Reference Range Interpretation Comments CHOLESTEROL (test code = 2210) 294 MG/DL TRIGLYCERIDES (test code = 2232) 1828 MG/DL HDL CHOLESTEROL (test code = 42 MG/DL 2220) CALC LDL CHOL (test code = 2237) (NOTE) MG/DL RISK RATIO LDL/HDL (test code = (NOTE) RATIO 2238) HEMOGLOBIN [id number] 00:00:00 Test Item Value Reference Range Interpretation Comments HEMOGLOBIN A1c (test code = 21565) 14.2 % HEMOGLOBIN [id number] 00:00:00 Test Item Value Reference Range Interpretation Comments HEMOGLOBIN A1c (test code = 93405) 14.2 % HEMOGLOBIN [id number] 00:00:00 Test Item Value Reference Range Interpretation Comments HEMOGLOBIN A1c (test code = 13077) 14.2 % C-REACTIVE [id number] 00:00:00 Test Item Value Reference Range Interpretation Comments C-REACTIVE PROTEIN (test code = <0.3 MG/DL 3513) C-REACTIVE [id number] 00:00:00 Test Item Value Reference Range Interpretation Comments C-REACTIVE PROTEIN (test code = <0.3 MG/DL 3513) SEDIMENTATION [id number] 00:00:00 Test Item Value Reference Range Interpretation Comments SEDIMENTATION RATE (test code = 12 MM/HOUR 1017) SEDIMENTATION [id number] 00:00:00 Test Item Value Reference Range Interpretation Comments SEDIMENTATION RATE (test code = 12 MM/HOUR 1017) CBC W/AUTO [id number] 00:00:00 Test Item Value Reference Range Interpretation [...] NUCLEATED RBCS (test code = 0.00 K/UL 97802) CBC W/AUTO [id number] 00:00:00 Test Item Value Reference Range Interpretation [...] NUCLEATED RBCS (test code = 0.00 K/UL 67176) CBC W/AUTO [id number] 00:00:00 Test Item Value Reference Range Interpretation [...] NUCLEATED RBCS (test code = 0.00 K/UL 11017) COMPREHENSIVE METABOLIC [id number] 00:00:00 Test Item Value Reference Range Interpretation Comments GLUCOSE (test code = 2217) 589 MG/DL BUN (test code = 2208) 18 MG/DL CREATININE (test code = 2214) 0.59 MG/DL eGFR AMER. (test code 131 ML/MIN/1.73 = 90649) eGFR NON- AMER. (test 113 ML/MIN/1.73 code = 32010) CALC BUN/CREAT (test code = 31 RATIO [...] code = 2219) 28 U/L COMPREHENSIVE METABOLIC [id number] 00:00:00 Test Item Value Reference Range Interpretation Comments GLUCOSE (test code = 2217) 589 MG/DL BUN (test code = 2208) 18 MG/DL CREATININE (test code = 2214) 0.59 MG/DL eGFR AMER. (test code 131 ML/MIN/1.73 = 33129) eGFR NON- AMER. (test 113 ML/MIN/1.73 code = 29963) CALC BUN/CREAT (test code = 31 RATIO [...] BILIRUBIN, TOTAL (test code = 0.2 MG/DL 2207) ALKALINE PHOSPHATASE (test 225 U/L code = 2204) AST (test code = 2218) <5 U/L ALT (test code = 2219) 28 U/L LIPID PANEL WITH REFLEX DIRECT [id number] 00:00:00 Test Item Value Reference Range Interpretation Comments CHOLESTEROL (test code = 2210) 294 MG/DL TRIGLYCERIDES (test code = 2232) 1828 MG/DL HDL CHOLESTEROL (test code = 42 MG/DL 2220) CALC LDL CHOL (test code = 2237) (NOTE) MG/DL RISK RATIO LDL/HDL (test code = (NOTE) RATIO 2238) LIPID PANEL WITH REFLEX DIRECT [id number] 00:00:00 Test Item Value Reference Range Interpretation Comments CHOLESTEROL (test code = 2210) 294 MG/DL TRIGLYCERIDES (test code = 2232) 1828 MG/DL HDL CHOLESTEROL (test code = 42 MG/DL 2220) CALC LDL CHOL (test code = 2237) (NOTE) MG/DL RISK RATIO LDL/HDL (test code = (NOTE) RATIO 2238) HEMOGLOBIN [id number] 00:00:00 Test Item Value Reference Range Interpretation Comments HEMOGLOBIN A1c (test code = 94753) 14.2 % HEMOGLOBIN [id number] 00:00:00 Test Item Value Reference Range Interpretation Comments HEMOGLOBIN A1c (test code = 07934) 14.2 % HEMOGLOBIN [id number] 00:00:00 Test Item Value Reference Range Interpretation Comments HEMOGLOBIN A1c (test code = 48552) 14.2 % C-REACTIVE [id number] 00:00:00 Test Item Value Reference Range Interpretation Comments C-REACTIVE PROTEIN (test code = <0.3 MG/DL 3513) C-REACTIVE [id number] 00:00:00 Test Item Value Reference Range Interpretation Comments C-REACTIVE PROTEIN (test code = <0.3 MG/DL 3513) SEDIMENTATION [id number] 00:00:00 Test Item Value Reference Range Interpretation Comments SEDIMENTATION RATE (test code = 12 MM/HOUR 1017) SEDIMENTATION [id number] 00:00:00 Test Item Value Reference Range Interpretation Comments SEDIMENTATION RATE (test code = 12 MM/HOUR 1017) CBC W/AUTO [id number] 00:00:00 Test Item Value Reference Range Interpretation [...] NUCLEATED RBCS (test code = 0.00 K/UL 35011) CBC W/AUTO [id number] 00:00:00 Test Item Value Reference Range Interpretation [...] NUCLEATED RBCS (test code = 0.00 K/UL 14934) CBC W/AUTO [id number] 00:00:00 Test Item Value Reference Range Interpretation [...] NUCLEATED RBCS (test code = 0.00 K/UL 23324) COMPREHENSIVE METABOLIC [id number] 00:00:00 Test Item Value Reference Range Interpretation Comments GLUCOSE (test code = 2217) 589 MG/DL BUN (test code = 2208) 18 MG/DL CREATININE (test code = 2214) 0.59 MG/DL eGFR AMER. (test code 131 ML/MIN/1.73 = 13048) eGFR NON- AMER. (test 113 ML/MIN/1.73 code = 13315) CALC BUN/CREAT (test code = 31 RATIO 2235) SODIUM (test code = 2231) 128 MEQ/L POTASSIUM (test code = 2228) 4.4 MEQ/L CHLORIDE (test code = 2215) 87 MEQ/L CARBON DIOXIDE (test code = 21 MEQ/L 2205) CALCIUM (test code = 2209) 9.6 MG/DL [...] code = 2219) 28 U/L COMPREHENSIVE METABOLIC [id number] 00:00:00 Test Item Value Reference Range Interpretation Comments GLUCOSE (test code = 2217) 589 MG/DL BUN (test code = 2208) 18 MG/DL CREATININE (test code = 2214) 0.59 MG/DL eGFR AMER. (test code 131 ML/MIN/1.73 = 54322) eGFR NON- AMER. (test 113 ML/MIN/1.73 code = 41516) CALC BUN/CREAT (test code = 31 RATIO 2235) SODIUM (test code = 2231) 128 MEQ/L POTASSIUM (test code = 2228) 4.4 MEQ/L CHLORIDE (test code = 2215) 87 MEQ/L CARBON DIOXIDE (test code = 21 MEQ/L 220) CALCIUM (test code = 2209) 9.6 MG/DL PROTEIN, TOTAL (test code = 7.0 G/DL 2229) ALBUMIN (test code = 2201) 4.5 G/DL CALC GLOBULIN (test code = 2.5 G/DL 2240) CALC A/G RATIO (test code = 1.8 RATIO 2234) BILIRUBIN, TOTAL (test code = 0.2 MG/DL 2206) ALKALINE PHOSPHATASE (test 225 U/L code = 2204) AST (test code = 2218) <5 U/L ALT (test code = 2219) 28 U/L LIZBETH NON-REFLEX TO [id number] 00:00:00 Test Item Value Reference Range Interpretation Comments ANTI-NUCLEAR ANTIBODIES (test code = NEGATIVE 3506) [id number] 00:00:00 Test Item Value Reference Range Interpretation Comments FERRITIN (test code = 2075) 99 NG/ML [id number] 00:00:00 Test Item Value Reference Range Interpretation Comments FERRITIN (test code = 2075) 99 NG/ML SEDIMENTATION [id number] 00:00:00 Test Item Value Reference Range Interpretation Comments SEDIMENTATION RATE (test code = 8 MM/HOUR 1017) SEDIMENTATION [id number] 00:00:00 Test Item Value Reference Range Interpretation Comments SEDIMENTATION RATE (test code = 8 MM/HOUR 1017) [id number] 00:00:00 Test Item Value Reference Range Interpretation Comments TSH, THIRD GENERATION (test code 1.210 UIU/ML = 2821) [id number] 00:00:00 Test Item Value Reference Range Interpretation Comments TSH, THIRD GENERATION (test code 1.210 UIU/ML = 2821) [id number] 00:00:00 Test Item Value Reference Range Interpretation Comments TSH, THIRD GENERATION (test code 1.210 UIU/ML = 2821) CBC W/AUTO [id number] 00:00:00 Test Item Value Reference Range Interpretation [...] NUCLEATED RBCS (test code = 0.00 K/UL 79858) CBC W/AUTO [id number] 00:00:00 Test Item Value Reference Range Interpretation [...] NUCLEATED RBCS (test code = 0.00 K/UL 46972) CBC W/AUTO [id number] 00:00:00 Test Item Value Reference Range Interpretation [...] NUCLEATED RBCS (test code = 0.00 K/UL 90229) LIZBETH NON-REFLEX TO [id number] 00:00:00 Test Item Value Reference Range Interpretation Comments ANTI-NUCLEAR ANTIBODIES (test code = NEGATIVE 3506) LIZBETH NON-REFLEX TO [id number] 00:00:00 Test Item Value Reference Range Interpretation Comments ANTI-NUCLEAR ANTIBODIES (test code = NEGATIVE 3506) [id number] 00:00:00 Test Item Value Reference Range Interpretation Comments FERRITIN (test code = 2075) 99 NG/ML [id number] 00:00:00 Test Item Value Reference Range Interpretation Comments FERRITIN (test code = 2075) 99 NG/ML SEDIMENTATION [id number] 00:00:00 Test Item Value Reference Range Interpretation Comments SEDIMENTATION RATE (test code = 8 MM/HOUR 1017) SEDIMENTATION [id number] 00:00:00 Test Item Value Reference Range Interpretation Comments SEDIMENTATION RATE (test code = 8 MM/HOUR 1017) [id number] 00:00:00 Test Item Value Reference Range Interpretation Comments TSH, THIRD GENERATION (test code 1.210 UIU/ML = 2821) [id number] 00:00:00 Test Item Value Reference Range Interpretation Comments TSH, THIRD GENERATION (test code 1.210 UIU/ML = 2821) [id number] 00:00:00 Test Item Value Reference Range Interpretation Comments TSH, THIRD GENERATION (test code 1.210 UIU/ML = 2821) [id number] 00:00:00 Test Item Value Reference Range Interpretation Comments TSH, THIRD GENERATION (test code 1.210 UIU/ML = 2821) [id number] 00:00:00 Test Item Value Reference Range Interpretation Comments TSH, THIRD GENERATION (test code 1.210 UIU/ML = 2821) [id number] 00:00:00 Test Item Value Reference Range Interpretation Comments TSH, THIRD GENERATION (test code 1.210 UIU/ML = 2821) CBC W/AUTO [id number] 00:00:00 Test Item Value Reference Range Interpretation [...] NUCLEATED RBCS (test code = 0.00 K/UL 06889) CBC W/AUTO [id number] 00:00:00 Test Item Value Reference Range Interpretation [...] NUCLEATED RBCS (test code = 0.00 K/UL 68322) CBC W/AUTO [id number] 00:00:00 Test Item Value Reference Range Interpretation [...] NUCLEATED RBCS (test code = 0.00 K/UL 35173) LIZBETH NON-REFLEX TO [id number] 00:00:00 Test Item Value Reference Range Interpretation Comments ANTI-NUCLEAR ANTIBODIES (test code = NEGATIVE 3506) LIZBETH NON-REFLEX TO [id number] 00:00:00 Test Item Value Reference Range Interpretation Comments ANTI-NUCLEAR ANTIBODIES (test code = NEGATIVE 3506) [id number] 00:00:00 Test Item Value Reference Range Interpretation Comments FERRITIN (test code = 2075) 99 NG/ML [id number] 00:00:00 Test Item Value Reference Range Interpretation Comments FERRITIN (test code = 2075) 99 NG/ML SEDIMENTATION [id number] 00:00:00 Test Item Value Reference Range Interpretation Comments SEDIMENTATION RATE (test code = 8 MM/HOUR 1017) SEDIMENTATION [id number] 00:00:00 Test Item Value Reference Range Interpretation Comments SEDIMENTATION RATE (test code = 8 MM/HOUR 1017) CBC W/AUTO [id number] 00:00:00 Test Item Value Reference Range Interpretation [...] NUCLEATED RBCS (test code = 0.00 K/UL 53283) CBC W/AUTO [id number] 00:00:00 Test Item Value Reference Range Interpretation [...] NUCLEATED RBCS (test code = 0.00 K/UL 92949) CBC W/AUTO [id number] 00:00:00 Test Item Value Reference Range Interpretation [...] NUCLEATED RBCS (test code = 0.00 K/UL 96987) LIZBETH NON-REFLEX TO [id number] 00:00:00 Test Item Value Reference Range Interpretation Comments ANTI-NUCLEAR ANTIBODIES (test code = NEGATIVE 3506) LIZBETH NON-REFLEX TO [id number] 00:00:00 Test Item Value Reference Range Interpretation Comments ANTI-NUCLEAR ANTIBODIES (test code = NEGATIVE 3506) [id number] 00:00:00 Test Item Value Reference Range Interpretation Comments FERRITIN (test code = 2075) 99 NG/ML [id number] 00:00:00 Test Item Value Reference Range Interpretation Comments FERRITIN (test code = 2075) 99 NG/ML SEDIMENTATION [id number] 00:00:00 Test Item Value Reference Range Interpretation Comments SEDIMENTATION RATE (test code = 8 MM/HOUR 1017) SEDIMENTATION [id number] 00:00:00 Test Item Value Reference Range Interpretation Comments SEDIMENTATION RATE (test code = 8 MM/HOUR 1017) [id number] 00:00:00 Test Item Value Reference Range Interpretation Comments TSH, THIRD GENERATION (test code 1.210 UIU/ML = 2821) [id number] 00:00:00 Test Item Value Reference Range Interpretation Comments TSH, THIRD GENERATION (test code 1.210 UIU/ML = 2821) [id number] 00:00:00 Test Item Value Reference Range Interpretation Comments TSH, THIRD GENERATION (test code 1.210 UIU/ML = 2821) CBC W/AUTO [id number] 00:00:00 Test Item Value Reference Range Interpretation [...] NUCLEATED RBCS (test code = 0.00 K/UL 36832) CBC W/AUTO [id number] 00:00:00 Test Item Value Reference Range Interpretation [...] NUCLEATED RBCS (test code = 0.00 K/UL 89636) CBC W/AUTO [id number] 00:00:00 Test Item Value Reference Range Interpretation [...] NUCLEATED RBCS (test code = 0.00 K/UL 80667) LIZBETH NON-REFLEX TO [id number] 00:00:00 Test Item Value Reference Range Interpretation Comments ANTI-NUCLEAR ANTIBODIES (test code = NEGATIVE 3506) LIZBETH NON-REFLEX TO [id number] 00:00:00 Test Item Value Reference Range Interpretation Comments ANTI-NUCLEAR ANTIBODIES (test code = NEGATIVE 3506) [id number] 00:00:00 Test Item Value Reference Range Interpretation Comments FERRITIN (test code = 2075) 99 NG/ML [id number] 00:00:00 Test Item Value Reference Range Interpretation Comments FERRITIN (test code = 2075) 99 NG/ML SEDIMENTATION [id number] 00:00:00 Test Item Value Reference Range Interpretation Comments SEDIMENTATION RATE (test code = 8 MM/HOUR 1017) SEDIMENTATION [id number] 00:00:00 Test Item Value Reference Range Interpretation Comments SEDIMENTATION RATE (test code = 8 MM/HOUR 1017) [id number] 00:00:00 Test Item Value Reference Range Interpretation Comments TSH, THIRD GENERATION (test code 1.210 UIU/ML = 2821) [id number] 00:00:00 Test Item Value Reference Range Interpretation Comments TSH, THIRD GENERATION (test code 1.210 UIU/ML = 2821) [id number] 00:00:00 Test Item Value Reference Range Interpretation Comments TSH, THIRD GENERATION (test code 1.210 UIU/ML = 2821) CBC W/AUTO [id number] 00:00:00 Test Item Value Reference Range Interpretation [...] NUCLEATED RBCS (test code = 0.00 K/UL 35635) CBC W/AUTO [id number] 00:00:00 Test Item Value Reference Range Interpretation [...] NUCLEATED RBCS (test code = 0.00 K/UL 44144) CBC W/AUTO [id number] 00:00:00 Test Item Value Reference Range Interpretation [...] NUCLEATED RBCS (test code = 0.00 K/UL 98305) LIZBETH NON-REFLEX TO [id number] 00:00:00 Test Item Value Reference Range Interpretation Comments ANTI-NUCLEAR ANTIBODIES (test code = NEGATIVE 3506) LIZBETH NON-REFLEX TO [id number] 00:00:00 Test Item Value Reference Range Interpretation Comments ANTI-NUCLEAR ANTIBODIES (test code = NEGATIVE 3506) [id number] 00:00:00 Test Item Value Reference Range Interpretation Comments FERRITIN (test code = 2075) 99 NG/ML [id number] 00:00:00 Test Item Value Reference Range Interpretation Comments FERRITIN (test code = 2075) 99 NG/ML SEDIMENTATION [id number] 00:00:00 Test Item Value Reference Range Interpretation Comments SEDIMENTATION RATE (test code = 8 MM/HOUR 1017) SEDIMENTATION [id number] 00:00:00 Test Item Value Reference Range Interpretation Comments SEDIMENTATION RATE (test code = 8 MM/HOUR 1017) [id number] 00:00:00 Test Item Value Reference Range Interpretation Comments TSH, THIRD GENERATION (test code 1.210 UIU/ML = 2821) [id number] 00:00:00 Test Item Value Reference Range Interpretation Comments TSH, THIRD GENERATION (test code 1.210 UIU/ML = 2821) [id number] 00:00:00 Test Item Value Reference Range Interpretation Comments TSH, THIRD GENERATION (test code 1.210 UIU/ML = 2821) CBC W/AUTO [id number] 00:00:00 Test Item Value Reference Range Interpretation [...] NUCLEATED RBCS (test code = 0.00 K/UL 85041) CBC W/AUTO [id number] 00:00:00 Test Item Value Reference Range Interpretation [...] NUCLEATED RBCS (test code = 0.00 K/UL 49456) CBC W/AUTO [id number] 00:00:00 Test Item Value Reference Range Interpretation [...] NUCLEATED RBCS (test code = 0.00 K/UL 03977) LIZBETH NON-REFLEX TO [id number] 00:00:00 Test Item Value Reference Range Interpretation Comments ANTI-NUCLEAR ANTIBODIES (test code = NEGATIVE 3506) [id number] 00:00:00 Test Item Value Reference Range Interpretation Comments AMYLASE (test code = 2205) 79 U/L [id number] 00:00:00 Test Item Value Reference Range Interpretation Comments AMYLASE (test code = 2205) 79 U/L [id number] 00:00:00 Test Item Value Reference Range Interpretation Comments LIPASE (test code = 2057) 171 U/L [id number] 00:00:00 Test Item Value Reference Range Interpretation Comments LIPASE (test code = 2057) 171 U/L [id number] 00:00:00 Test Item Value Reference Range Interpretation Comments LIPASE (test code = 2057) 171 U/L [id number] 00:00:00 Test Item Value Reference Range Interpretation Comments AMYLASE (test code = 2205) 79 U/L [id number] 00:00:00 Test Item Value Reference Range Interpretation Comments AMYLASE (test code = 2205) 79 U/L [id number] 00:00:00 Test Item Value Reference Range Interpretation Comments AMYLASE (test code = 2205) 79 U/L [id number] 00:00:00 Test Item Value Reference Range Interpretation Comments LIPASE (test code = 2057) 171 U/L [id number] 00:00:00 Test Item Value Reference Range Interpretation Comments LIPASE (test code = 2057) 171 U/L [id number] 00:00:00 Test Item Value Reference Range Interpretation Comments LIPASE (test code = 2057) 171 U/L [id number] 00:00:00 Test Item Value Reference Range Interpretation Comments AMYLASE (test code = 5) 79 U/L [id number] 00:00:00 Test Item Value Reference Range Interpretation Comments LIPASE (test code = 2057) 171 U/L [id number] 00:00:00 Test Item Value Reference Range Interpretation Comments LIPASE (test code = 2057) 171 U/L [id number] 00:00:00 Test Item Value Reference Range Interpretation Comments LIPASE (test code = 2057) 171 U/L [id number] 00:00:00 Test Item Value Reference Range Interpretation Comments AMYLASE (test code = 2205) 79 U/L [id number] 00:00:00 Test Item Value Reference Range Interpretation Comments AMYLASE (test code = 5) 79 U/L [id number] 00:00:00 Test Item Value Reference Range Interpretation Comments LIPASE (test code = 2057) 171 U/L [id number] 00:00:00 Test Item Value Reference Range Interpretation Comments LIPASE (test code = 2057) 171 U/L [id number] 00:00:00 Test Item Value Reference Range Interpretation Comments LIPASE (test code = 2057) 171 U/L [id number] 00:00:00 Test Item Value Reference Range Interpretation Comments AMYLASE (test code = 5) 79 U/L [id number] 00:00:00 Test Item Value Reference Range Interpretation Comments AMYLASE (test code = 2204) 79 U/L [id number] 00:00:00 Test Item Value Reference Range Interpretation Comments LIPASE (test code = 2057) 171 U/L [id number] 00:00:00 Test Item Value Reference Range Interpretation Comments LIPASE (test code = 2057) 171 U/L [id number] 00:00:00 Test Item Value Reference Range Interpretation Comments LIPASE (test code = 2057) 171 U/L [id number] 00:00:00 Test Item Value Reference Range Interpretation Comments AMYLASE (test code = 5) 79 U/L [id number] 00:00:00 Test Item Value Reference Range Interpretation Comments AMYLASE (test code = 2204) 79 U/L [id number] 00:00:00 Test Item Value Reference Range Interpretation Comments LIPASE (test code = 2057) 171 U/L [id number] 00:00:00 Test Item Value Reference Range Interpretation Comments LIPASE (test code = 2057) 171 U/L [id number] 00:00:00 Test Item Value Reference Range Interpretation Comments LIPASE (test code = 2057) 171 U/L COMPREHENSIVE METABOLIC [id number] 00:00:00 Test Item Value Reference Range Interpretation Comments GLUCOSE (test code = 2217) 359 MG/DL BUN (test code = 2208) 8 MG/DL CREATININE (test code = 2214) 0.44 MG/DL eGFR AMER. (test code 144 ML/MIN/1.73 = 30752) eGFR NON- AMER. (test 125 ML/MIN/1.73 code = 81250) CALC BUN/CREAT (test code = 18 RATIO [...] code = 2219) 31 U/L COMPREHENSIVE METABOLIC [id number] 00:00:00 Test Item Value Reference Range Interpretation Comments GLUCOSE (test code = 2217) 359 MG/DL BUN (test code = 2208) 8 MG/DL CREATININE (test code = 2214) 0.44 MG/DL eGFR AMER. (test code 144 ML/MIN/1.73 = 48156) eGFR NON- AMER. (test 125 ML/MIN/1.73 code = 84857) CALC BUN/CREAT (test code = 18 RATIO [...] BILIRUBIN, TOTAL (test code = 0.4 MG/DL 2207) ALKALINE PHOSPHATASE (test 169 U/L code = 2204) AST (test code = 2218) 18 U/L ALT (test code = 2219) 31 U/L MICROALBUMIN/CREATININE, RANDOM AND [id number] 00:00:00 Test Item Value Reference Range Interpretation Comments CREATININE, URINE, CONC. (test 17.1 MG/DL code = 2072) ALBUMIN, URINE, RANDOM (test code 2.1 MG/DL = 50280) CALC ALBUMIN/CREAT, RND (test code 123 MG/G = 74865) MICROALBUMIN/CREATININE, RANDOM AND [id number] 00:00:00 Test Item Value Reference Range Interpretation Comments CREATININE, URINE, CONC. (test 17.1 MG/DL code = 2072) ALBUMIN, URINE, RANDOM (test code 2.1 MG/DL = 82148) CALC ALBUMIN/CREAT, RND (test code 123 MG/G = 61229) HEMOGLOBIN [id number] 00:00:00 Test Item Value Reference Range Interpretation Comments HEMOGLOBIN A1c (test code = 92580) 14.5 % HEMOGLOBIN [id number] 00:00:00 Test Item Value Reference Range Interpretation Comments HEMOGLOBIN A1c (test code = 26926) 14.5 % HEMOGLOBIN [id number] 00:00:00 Test Item Value Reference Range Interpretation Comments HEMOGLOBIN A1c (test code = 50498) 14.5 % LIPID [id number] 00:00:00 Test Item Value Reference Range Interpretation Comments CHOLESTEROL (test code = 2210) 299 MG/DL TRIGLYCERIDES (test code = 2232) 1161 MG/DL HDL CHOLESTEROL (test code = 40 MG/DL 2220) CALC LDL CHOL (test code = 2237) (NOTE) MG/DL RISK RATIO LDL/HDL (test code = (NOTE) RATIO 2238) LIPID [id number] 00:00:00 Test Item Value Reference Range Interpretation Comments CHOLESTEROL (test code = 2210) 299 MG/DL TRIGLYCERIDES (test code = 2232) 1161 MG/DL HDL CHOLESTEROL (test code = 40 MG/DL 2220) CALC LDL CHOL (test code = 2237) (NOTE) MG/DL RISK RATIO LDL/HDL (test code = (NOTE) RATIO 2238) COMPREHENSIVE METABOLIC [id number] 00:00:00 Test Item Value Reference Range Interpretation Comments GLUCOSE (test code = 2217) 359 MG/DL BUN (test code = 2208) 8 MG/DL CREATININE (test code = 2214) 0.44 MG/DL eGFR AMER. (test code 144 ML/MIN/1.73 = 10630) eGFR NON- AMER. (test 125 ML/MIN/1.73 code = 25055) CALC BUN/CREAT (test code = 18 RATIO [...] CALC GLOBULIN (test code = 2.8 G/DL 224) CALC A/G RATIO (test code = 1.6 RATIO 2234) BILIRUBIN, TOTAL (test code = 0.4 MG/DL 2206) ALKALINE PHOSPHATASE (test 169 U/L code = 2204) AST (test code = 2218) 18 U/L ALT (test code = 2219) 31 U/L COMPREHENSIVE METABOLIC [id number] 00:00:00 Test Item Value Reference Range Interpretation Comments GLUCOSE (test code = 2217) 359 MG/DL BUN (test code = 2208) 8 MG/DL CREATININE (test code = 2214) 0.44 MG/DL eGFR AMER. (test code 144 ML/MIN/1.73 = 12289) eGFR NON- AMER. (test 125 ML/MIN/1.73 code = 62713) CALC BUN/CREAT (test code = 18 RATIO 2235) SODIUM (test code = 2231) 133 MEQ/L POTASSIUM (test code = 2228) 4.0 MEQ/L CHLORIDE (test code = 2215) 94 MEQ/L CARBON DIOXIDE (test code = 25 MEQ/L 2206) CALCIUM (test code = 2209) [...] = 2219) 31 U/L MICROALBUMIN/CREATININE, RANDOM AND [id number] 00:00:00 Test Item Value Reference Range Interpretation Comments CREATININE, URINE, CONC. (test 17.1 MG/DL code = 2072) ALBUMIN, URINE, RANDOM (test code 2.1 MG/DL = 98158) CALC ALBUMIN/CREAT, RND (test code 123 MG/G = 06303) MICROALBUMIN/CREATININE, RANDOM AND [id number] 00:00:00 Test Item Value Reference Range Interpretation Comments CREATININE, URINE, CONC. (test 17.1 MG/DL code = 2072) ALBUMIN, URINE, RANDOM (test code 2.1 MG/DL = 09352) CALC ALBUMIN/CREAT, RND (test code 123 MG/G = 75828) HEMOGLOBIN [id number] 00:00:00 Test Item Value Reference Range Interpretation Comments HEMOGLOBIN A1c (test code = 67296) 14.5 % HEMOGLOBIN [id number] 00:00:00 Test Item Value Reference Range Interpretation Comments HEMOGLOBIN A1c (test code = 17104) 14.5 % HEMOGLOBIN [id number] 00:00:00 Test Item Value Reference Range Interpretation Comments HEMOGLOBIN A1c (test code = 21498) 14.5 % HEMOGLOBIN [id number] 00:00:00 Test Item Value Reference Range Interpretation Comments HEMOGLOBIN A1c (test code = 59664) 14.5 % HEMOGLOBIN [id number] 00:00:00 Test Item Value Reference Range Interpretation Comments HEMOGLOBIN A1c (test code = 67885) 14.5 % LIPID [id number] 00:00:00 Test Item Value Reference Range Interpretation Comments CHOLESTEROL (test code = 2210) 299 MG/DL TRIGLYCERIDES (test code = 2232) 1161 MG/DL HDL CHOLESTEROL (test code = 40 MG/DL 2220) CALC LDL CHOL (test code = 2237) (NOTE) MG/DL RISK RATIO LDL/HDL (test code = (NOTE) RATIO 2238) LIPID [id number] 00:00:00 Test Item Value Reference Range Interpretation Comments CHOLESTEROL (test code = 2210) 299 MG/DL TRIGLYCERIDES (test code = 2232) 1161 MG/DL HDL CHOLESTEROL (test code = 40 MG/DL 2220) CALC LDL CHOL (test code = 2237) (NOTE) MG/DL RISK RATIO LDL/HDL (test code = (NOTE) RATIO 2238) COMPREHENSIVE METABOLIC [id number] 00:00:00 Test Item Value Reference Range Interpretation Comments GLUCOSE (test code = 2217) 359 MG/DL BUN (test code = 2208) 8 MG/DL CREATININE (test code = 2214) 0.44 MG/DL eGFR AMER. (test code 144 ML/MIN/1.73 = 51248) eGFR NON- AMER. (test 125 ML/MIN/1.73 code = 17914) CALC BUN/CREAT (test code = 18 RATIO 2235) SODIUM (test code = 2231) 133 MEQ/L POTASSIUM (test code = 2228) 4.0 MEQ/L CHLORIDE (test code = 2215) 94 MEQ/L CARBON DIOXIDE (test code = 25 MEQ/L 6) CALCIUM (test code = 2209) 9.7 MG/DL [...] code = 2219) 31 U/L COMPREHENSIVE METABOLIC [id number] 00:00:00 Test Item Value Reference Range Interpretation Comments GLUCOSE (test code = 2217) 359 MG/DL BUN (test code = 2208) 8 MG/DL CREATININE (test code = 2214) 0.44 MG/DL eGFR AMER. (test code 144 ML/MIN/1.73 = 26589) eGFR NON- AMER. (test 125 ML/MIN/1.73 code = 91106) CALC BUN/CREAT (test code = 18 RATIO [...] CALC GLOBULIN (test code = 2.8 G/DL 224) CALC A/G RATIO (test code = 1.6 RATIO 2234) BILIRUBIN, TOTAL (test code = 0.4 MG/DL 2206) ALKALINE PHOSPHATASE (test 169 U/L code = 220) AST (test code = 2218) 18 U/L ALT (test code = 2219) 31 U/L MICROALBUMIN/CREATININE, RANDOM AND [id number] 00:00:00 Test Item Value Reference Range Interpretation Comments CREATININE, URINE, CONC. (test 17.1 MG/DL code = 2072) ALBUMIN, URINE, RANDOM (test code 2.1 MG/DL = 36663) CALC ALBUMIN/CREAT, RND (test code 123 MG/G = 37195) MICROALBUMIN/CREATININE, RANDOM AND [id number] 00:00:00 Test Item Value Reference Range Interpretation Comments CREATININE, URINE, CONC. (test 17.1 MG/DL code = 2072) ALBUMIN, URINE, RANDOM (test code 2.1 MG/DL = 47770) CALC ALBUMIN/CREAT, RND (test code 123 MG/G = 12672) HEMOGLOBIN [id number] 00:00:00 Test Item Value Reference Range Interpretation Comments HEMOGLOBIN A1c (test code = 81520) 14.5 % LIPID [id number] 00:00:00 Test Item Value Reference Range Interpretation Comments CHOLESTEROL (test code = 2210) 299 MG/DL TRIGLYCERIDES (test code = 2232) 1161 MG/DL HDL CHOLESTEROL (test code = 40 MG/DL 0) CALC LDL CHOL (test code = 2237) (NOTE) MG/DL RISK RATIO LDL/HDL (test code = (NOTE) RATIO 2238) LIPID [id number] 00:00:00 Test Item Value Reference Range Interpretation Comments CHOLESTEROL (test code = 2210) 299 MG/DL TRIGLYCERIDES (test code = 2232) 1161 MG/DL HDL CHOLESTEROL (test code = 40 MG/DL 2220) CALC LDL CHOL (test code = 2237) (NOTE) MG/DL RISK RATIO LDL/HDL (test code = (NOTE) RATIO 2238) COMPREHENSIVE METABOLIC [id number] 00:00:00 Test Item Value Reference Range Interpretation Comments GLUCOSE (test code = 2217) 359 MG/DL BUN (test code = 2208) 8 MG/DL CREATININE (test code = 2214) 0.44 MG/DL eGFR AMER. (test code 144 ML/MIN/1.73 = 57110) eGFR NON- AMER. (test 125 ML/MIN/1.73 code = 61187) CALC BUN/CREAT (test code = 18 RATIO [...] BILIRUBIN, TOTAL (test code = 0.4 MG/DL 220) ALKALINE PHOSPHATASE (test 169 U/L code = 2204) AST (test code = 2218) 18 U/L ALT (test code = 2219) 31 U/L COMPREHENSIVE METABOLIC [id number] 00:00:00 Test Item Value Reference Range Interpretation Comments GLUCOSE (test code = 2217) 359 MG/DL BUN (test code = 2208) 8 MG/DL CREATININE (test code = 2214) 0.44 MG/DL eGFR AMER. (test code 144 ML/MIN/1.73 = 65004) eGFR NON- AMER. (test 125 ML/MIN/1.73 code = 22309) CALC BUN/CREAT (test code = 18 RATIO [...] CALC GLOBULIN (test code = 2.8 G/DL 2239) CALC A/G RATIO (test code = 1.6 RATIO 2233) BILIRUBIN, TOTAL (test code = 0.4 MG/DL 2206) ALKALINE PHOSPHATASE (test 169 U/L code = 2204) AST (test code = 2218) 18 U/L ALT (test code = 2219) 31 U/L MICROALBUMIN/CREATININE, RANDOM AND [id number] 00:00:00 Test Item Value Reference Range Interpretation Comments CREATININE, URINE, CONC. (test 17.1 MG/DL code = 2072) ALBUMIN, URINE, RANDOM (test code 2.1 MG/DL = 98644) CALC ALBUMIN/CREAT, RND (test code 123 MG/G = 17018) MICROALBUMIN/CREATININE, RANDOM AND [id number] 00:00:00 Test Item Value Reference Range Interpretation Comments CREATININE, URINE, CONC. (test 17.1 MG/DL code = 2072) ALBUMIN, URINE, RANDOM (test code 2.1 MG/DL = 93745) CALC ALBUMIN/CREAT, RND (test code 123 MG/G = 01811) HEMOGLOBIN [id number] 00:00:00 Test Item Value Reference Range Interpretation Comments HEMOGLOBIN A1c (test code = 33943) 14.5 % HEMOGLOBIN [id number] 00:00:00 Test Item Value Reference Range Interpretation Comments HEMOGLOBIN A1c (test code = 50233) 14.5 % HEMOGLOBIN [id number] 00:00:00 Test Item Value Reference Range Interpretation Comments HEMOGLOBIN A1c (test code = 93890) 14.5 % LIPID [id number] 00:00:00 Test Item Value Reference Range Interpretation Comments CHOLESTEROL (test code = 2210) 299 MG/DL TRIGLYCERIDES (test code = 2232) 1161 MG/DL HDL CHOLESTEROL (test code = 40 MG/DL 0) CALC LDL CHOL (test code = 2237) (NOTE) MG/DL RISK RATIO LDL/HDL (test code = (NOTE) RATIO 2238) LIPID [id number] 00:00:00 Test Item Value Reference Range Interpretation Comments CHOLESTEROL (test code = 2210) 299 MG/DL TRIGLYCERIDES (test code = 2232) 1161 MG/DL HDL CHOLESTEROL (test code = 40 MG/DL 2220) CALC LDL CHOL (test code = 2237) (NOTE) MG/DL RISK RATIO LDL/HDL (test code = (NOTE) RATIO 2238) COMPREHENSIVE METABOLIC [id number] 00:00:00 Test Item Value Reference Range Interpretation Comments GLUCOSE (test code = 2217) 359 MG/DL BUN (test code = 2208) 8 MG/DL CREATININE (test code = 2214) 0.44 MG/DL eGFR AMER. (test code 144 ML/MIN/1.73 = 49943) eGFR NON- AMER. (test 125 ML/MIN/1.73 code = 90543) CALC BUN/CREAT (test code = 18 RATIO 2235) SODIUM (test code = 2231) 133 MEQ/L POTASSIUM (test code = 2228) 4.0 MEQ/L CHLORIDE (test code = 2215) 94 MEQ/L CARBON DIOXIDE (test code = 25 MEQ/L 6) CALCIUM (test code = 2209) 9.7 MG/DL [...] code = 2219) 31 U/L COMPREHENSIVE METABOLIC [id number] 00:00:00 Test Item Value Reference Range Interpretation Comments GLUCOSE (test code = 2217) 359 MG/DL BUN (test code = 2208) 8 MG/DL CREATININE (test code = 2214) 0.44 MG/DL eGFR AMER. (test code 144 ML/MIN/1.73 = 89215) eGFR NON- AMER. (test 125 ML/MIN/1.73 code = 59945) CALC BUN/CREAT (test code = 18 RATIO 2234) SODIUM (test code = 2231) 133 MEQ/L POTASSIUM (test code = 2228) 4.0 MEQ/L CHLORIDE (test code = 2215) 94 MEQ/L CARBON DIOXIDE (test code = 25 MEQ/L 2205) CALCIUM (test code = 2209) 9.7 MG/DL PROTEIN, TOTAL (test code = 7.2 G/DL 2228) ALBUMIN (test code = 2201) 4.4 G/DL CALC GLOBULIN (test code = 2.8 G/DL 2239) CALC A/G RATIO (test code = 1.6 RATIO 2233) BILIRUBIN, TOTAL (test code = 0.4 MG/DL 2206) ALKALINE PHOSPHATASE (test 169 U/L code = 220) AST (test code = 2218) 18 U/L ALT (test code = 2219) 31 U/L MICROALBUMIN/CREATININE, RANDOM AND [id number] 00:00:00 Test Item Value Reference Range Interpretation Comments CREATININE, URINE, CONC. (test 17.1 MG/DL code = 2072) ALBUMIN, URINE, RANDOM (test code 2.1 MG/DL = 37280) CALC ALBUMIN/CREAT, RND (test code 123 MG/G = 64998) MICROALBUMIN/CREATININE, RANDOM AND [id number] 00:00:00 Test Item Value Reference Range Interpretation Comments CREATININE, URINE, CONC. (test 17.1 MG/DL code = 2072) ALBUMIN, URINE, RANDOM (test code 2.1 MG/DL = 24755) CALC ALBUMIN/CREAT, RND (test code 123 MG/G = 65173) HEMOGLOBIN [id number] 00:00:00 Test Item Value Reference Range Interpretation Comments HEMOGLOBIN A1c (test code = 29868) 14.5 % HEMOGLOBIN [id number] 00:00:00 Test Item Value Reference Range Interpretation Comments HEMOGLOBIN A1c (test code = 84644) 14.5 % HEMOGLOBIN [id number] 00:00:00 Test Item Value Reference Range Interpretation Comments HEMOGLOBIN A1c (test code = 71919) 14.5 % LIPID [id number] 00:00:00 Test Item Value Reference Range Interpretation Comments CHOLESTEROL (test code = 2210) 299 MG/DL TRIGLYCERIDES (test code = 2232) 1161 MG/DL HDL CHOLESTEROL (test code = 40 MG/DL 2220) CALC LDL CHOL (test code = 2237) (NOTE) MG/DL RISK RATIO LDL/HDL (test code = (NOTE) RATIO 2238) LIPID [id number] 00:00:00 Test Item Value Reference Range Interpretation Comments CHOLESTEROL (test code = 2210) 299 MG/DL TRIGLYCERIDES (test code = 2232) 1161 MG/DL HDL CHOLESTEROL (test code = 40 MG/DL 2220) CALC LDL CHOL (test code = 2237) (NOTE) MG/DL RISK RATIO LDL/HDL (test code = (NOTE) RATIO 2238) COMPREHENSIVE METABOLIC [id number] 00:00:00 Test Item Value Reference Range Interpretation Comments GLUCOSE (test code = 2217) 359 MG/DL BUN (test code = 2208) 8 MG/DL CREATININE (test code = 2214) 0.44 MG/DL eGFR AMER. (test code 144 ML/MIN/1.73 = 60366) eGFR NON- AMER. (test 125 ML/MIN/1.73 code = 68787) CALC BUN/CREAT (test code = 18 RATIO 2235) SODIUM (test code = 2231) 133 MEQ/L POTASSIUM (test code = 2228) 4.0 MEQ/L CHLORIDE (test code = 2215) 94 MEQ/L CARBON DIOXIDE (test code = 25 MEQ/L 6) CALCIUM (test code = 2209) 9.7 MG/DL PROTEIN, TOTAL (test code = 7.2 G/DL 222) ALBUMIN (test code = 2201) 4.4 G/DL CALC GLOBULIN (test code = 2.8 G/DL 2240) CALC A/G RATIO (test code = 1.6 RATIO 2234) BILIRUBIN, TOTAL (test code = 0.4 MG/DL 220) ALKALINE PHOSPHATASE (test 169 U/L code = 2204) AST (test code = 2218) 18 U/L ALT (test code = 2219) 31 U/L COMPREHENSIVE METABOLIC [id number] 00:00:00 Test Item Value Reference Range Interpretation Comments GLUCOSE (test code = 2217) 359 MG/DL BUN (test code = 2208) 8 MG/DL CREATININE (test code = 2214) 0.44 MG/DL eGFR AMER. (test code 144 ML/MIN/1.73 = 25816) eGFR NON- AMER. (test 125 ML/MIN/1.73 code = 27718) CALC BUN/CREAT (test code = 18 RATIO [...] CALC GLOBULIN (test code = 2.8 G/DL 2239) CALC A/G RATIO (test code = 1.6 RATIO 2233) BILIRUBIN, TOTAL (test code = 0.4 MG/DL 2206) ALKALINE PHOSPHATASE (test 169 U/L code = 2204) AST (test code = 2218) 18 U/L ALT (test code = 2219) 31 U/L MICROALBUMIN/CREATININE, RANDOM AND [id number] 00:00:00 Test Item Value Reference Range Interpretation Comments CREATININE, URINE, CONC. (test 17.1 MG/DL code = 2072) ALBUMIN, URINE, RANDOM (test code 2.1 MG/DL = 73404) CALC ALBUMIN/CREAT, RND (test code 123 MG/G = 27248) MICROALBUMIN/CREATININE, RANDOM AND [id number] 00:00:00 Test Item Value Reference Range Interpretation Comments CREATININE, URINE, CONC. (test 17.1 MG/DL code = 2072) ALBUMIN, URINE, RANDOM (test code 2.1 MG/DL = 08405) CALC ALBUMIN/CREAT, RND (test code 123 MG/G = 73693) HEMOGLOBIN [id number] 00:00:00 Test Item Value Reference Range Interpretation Comments HEMOGLOBIN A1c (test code = 60258) 14.5 % HEMOGLOBIN [id number] 00:00:00 Test Item Value Reference Range Interpretation Comments HEMOGLOBIN A1c (test code = 25679) 14.5 % HEMOGLOBIN [id number] 00:00:00 Test Item Value Reference Range Interpretation Comments HEMOGLOBIN A1c (test code = 43576) 14.5 % LIPID [id number] 00:00:00 Test Item Value Reference Range Interpretation Comments CHOLESTEROL (test code = 2210) 299 MG/DL TRIGLYCERIDES (test code = 2232) 1161 MG/DL HDL CHOLESTEROL (test code = 40 MG/DL 2220) CALC LDL CHOL (test code = 2237) (NOTE) MG/DL RISK RATIO LDL/HDL (test code = (NOTE) RATIO 2238) LIPID [id number] 00:00:00 Test Item Value Reference Range Interpretation Comments CHOLESTEROL (test code = 2210) 299 MG/DL TRIGLYCERIDES (test code = 2232) 1161 MG/DL HDL CHOLESTEROL (test code = 40 MG/DL 2220) CALC LDL CHOL (test code = 2237) (NOTE) MG/DL RISK RATIO LDL/HDL (test code = (NOTE) RATIO 2238) HEMOGLOBIN [id number] 00:00:00 Test Item Value Reference Range Interpretation Comments HEMOGLOBIN A1c (test code = 62625) 12.4 % HEMOGLOBIN [id number] 00:00:00 Test Item Value Reference Range Interpretation Comments HEMOGLOBIN A1c (test code = 75652) 12.4 % HEMOGLOBIN [id number] 00:00:00 Test Item Value Reference Range Interpretation Comments HEMOGLOBIN A1c (test code = 99099) 12.4 % COMPREHENSIVE METABOLIC [id number] 00:00:00 Test Item Value Reference Range Interpretation Comments GLUCOSE (test code = 2217) 302 MG/DL BUN (test code = 2208) 9 MG/DL CREATININE (test code = 2214) 0.55 MG/DL eGFR AMER. (test code 135 ML/MIN/1.73 = 21250) eGFR NON- AMER. (test 117 ML/MIN/1.73 code = 41394) CALC BUN/CREAT (test code = 16 RATIO 2235) SODIUM (test code = 2231) 138 MEQ/L POTASSIUM (test code = 2228) 4.2 MEQ/L CHLORIDE (test code = 2215) 100 MEQ/L CARBON DIOXIDE (test code = 24 MEQ/L 2205) CALCIUM (test code = 2209) 9.8 MG/DL PROTEIN, TOTAL (test code = 7.5 G/DL 2228) ALBUMIN (test code = 220) 4.6 G/DL CALC GLOBULIN (test code = 2.9 G/DL 2239) CALC A/G RATIO (test code = 1.6 RATIO 2234) BILIRUBIN, TOTAL (test code = 0.8 MG/DL 220) ALKALINE PHOSPHATASE (test 105 U/L code = 2204) AST (test code = 2218) 22 U/L ALT (test code = 2219) 39 U/L COMPREHENSIVE METABOLIC [id number] 00:00:00 Test Item Value Reference Range Interpretation Comments GLUCOSE (test code = 2217) 302 MG/DL BUN (test code = 2208) 9 MG/DL CREATININE (test code = 2214) 0.55 MG/DL eGFR AMER. (test code 135 ML/MIN/1.73 = 82256) eGFR NON- AMER. (test 117 ML/MIN/1.73 code = 78669) CALC BUN/CREAT (test code = 16 RATIO [...] (test code = 2219) 39 U/L LIPID [id number] 00:00:00 Test Item Value Reference Range Interpretation Comments CHOLESTEROL (test code = 2210) 214 MG/DL TRIGLYCERIDES (test code = 2232) 581 MG/DL HDL CHOLESTEROL (test code = 38 MG/DL 2220) CALC LDL CHOL (test code = 2237) (NOTE) MG/DL RISK RATIO LDL/HDL (test code = (NOTE) RATIO 2238) LIPID [id number] 00:00:00 Test Item Value Reference Range Interpretation Comments CHOLESTEROL (test code = 2210) 214 MG/DL TRIGLYCERIDES (test code = 2232) 581 MG/DL HDL CHOLESTEROL (test code = 38 MG/DL 2220) CALC LDL CHOL (test code = 2237) (NOTE) MG/DL RISK RATIO LDL/HDL (test code = (NOTE) RATIO 2238) HEMOGLOBIN [id number] 00:00:00 Test Item Value Reference Range Interpretation Comments HEMOGLOBIN A1c (test code = 12918) 12.4 % HEMOGLOBIN [id number] 00:00:00 Test Item Value Reference Range Interpretation Comments HEMOGLOBIN A1c (test code = 28576) 12.4 % HEMOGLOBIN [id number] 00:00:00 Test Item Value Reference Range Interpretation Comments HEMOGLOBIN A1c (test code = 94644) 12.4 % COMPREHENSIVE METABOLIC [id number] 00:00:00 Test Item Value Reference Range Interpretation Comments GLUCOSE (test code = 2217) 302 MG/DL BUN (test code = 2208) 9 MG/DL CREATININE (test code = 2214) 0.55 MG/DL eGFR AMER. (test code 135 ML/MIN/1.73 = 21690) eGFR NON- AMER. (test 117 ML/MIN/1.73 code = 48108) CALC BUN/CREAT (test code = 16 RATIO [...] code = 2219) 39 U/L COMPREHENSIVE METABOLIC [id number] 00:00:00 Test Item Value Reference Range Interpretation Comments GLUCOSE (test code = 2217) 302 MG/DL BUN (test code = 2208) 9 MG/DL CREATININE (test code = 2214) 0.55 MG/DL eGFR AMER. (test code 135 ML/MIN/1.73 = 92196) eGFR NON- AMER. (test 117 ML/MIN/1.73 code = 16948) CALC BUN/CREAT (test code = 16 RATIO [...] code = 2219) 39 U/L COMPREHENSIVE METABOLIC [id number] 00:00:00 Test Item Value Reference Range Interpretation Comments GLUCOSE (test code = 2217) 302 MG/DL BUN (test code = 2208) 9 MG/DL CREATININE (test code = 2214) 0.55 MG/DL eGFR AMER. (test code 135 ML/MIN/1.73 = 74122) eGFR NON- AMER. (test 117 ML/MIN/1.73 code = 20360) CALC BUN/CREAT (test code = 16 RATIO [...] code = 2219) 39 U/L COMPREHENSIVE METABOLIC [id number] 00:00:00 Test Item Value Reference Range Interpretation Comments GLUCOSE (test code = 2217) 302 MG/DL BUN (test code = 2208) 9 MG/DL CREATININE (test code = 2214) 0.55 MG/DL eGFR AMER. (test code 135 ML/MIN/1.73 = 22620) eGFR NON- AMER. (test 117 ML/MIN/1.73 code = 40645) CALC BUN/CREAT (test code = 16 RATIO [...] BILIRUBIN, TOTAL (test code = 0.8 MG/DL 220) ALKALINE PHOSPHATASE (test 105 U/L code = 2204) AST (test code = 2218) 22 U/L ALT (test code = 2219) 39 U/L LIPID [id number] 00:00:00 Test Item Value Reference Range Interpretation Comments CHOLESTEROL (test code = 2210) 214 MG/DL TRIGLYCERIDES (test code = 2232) 581 MG/DL HDL CHOLESTEROL (test code = 38 MG/DL 2220) CALC LDL CHOL (test code = 2237) (NOTE) MG/DL RISK RATIO LDL/HDL (test code = (NOTE) RATIO 2238) LIPID [id number] 00:00:00 Test Item Value Reference Range Interpretation Comments CHOLESTEROL (test code = 2210) 214 MG/DL TRIGLYCERIDES (test code = 2232) 581 MG/DL HDL CHOLESTEROL (test code = 38 MG/DL 2220) CALC LDL CHOL (test code = 2237) (NOTE) MG/DL RISK RATIO LDL/HDL (test code = (NOTE) RATIO 2238) HEMOGLOBIN [id number] 00:00:00 Test Item Value Reference Range Interpretation Comments HEMOGLOBIN A1c (test code = 47163) 12.4 % HEMOGLOBIN [id number] 00:00:00 Test Item Value Reference Range Interpretation Comments HEMOGLOBIN A1c (test code = 15460) 12.4 % HEMOGLOBIN [id number] 00:00:00 Test Item Value Reference Range Interpretation Comments HEMOGLOBIN A1c (test code = 25525) 12.4 % LIPID [id number] 00:00:00 Test Item Value Reference Range Interpretation Comments CHOLESTEROL (test code = 2210) 214 MG/DL TRIGLYCERIDES (test code = 2232) 581 MG/DL HDL CHOLESTEROL (test code = 38 MG/DL 2220) CALC LDL CHOL (test code = 2237) (NOTE) MG/DL RISK RATIO LDL/HDL (test code = (NOTE) RATIO 2238) LIPID [id number] 00:00:00 Test Item Value Reference Range Interpretation Comments CHOLESTEROL (test code = 2210) 214 MG/DL TRIGLYCERIDES (test code = 2232) 581 MG/DL HDL CHOLESTEROL (test code = 38 MG/DL 2220) CALC LDL CHOL (test code = 2237) (NOTE) MG/DL RISK RATIO LDL/HDL (test code = (NOTE) RATIO 2238) HEMOGLOBIN [id number] 00:00:00 Test Item Value Reference Range Interpretation Comments HEMOGLOBIN A1c (test code = 21488) 12.4 % HEMOGLOBIN [id number] 00:00:00 Test Item Value Reference Range Interpretation Comments HEMOGLOBIN A1c (test code = 43135) 12.4 % HEMOGLOBIN [id number] 00:00:00 Test Item Value Reference Range Interpretation Comments HEMOGLOBIN A1c (test code = 31582) 12.4 % COMPREHENSIVE METABOLIC [id number] 00:00:00 Test Item Value Reference Range Interpretation Comments GLUCOSE (test code = 2217) 302 MG/DL BUN (test code = 2208) 9 MG/DL CREATININE (test code = 2214) 0.55 MG/DL eGFR AMER. (test code 135 ML/MIN/1.73 = 05171) eGFR NON- AMER. (test 117 ML/MIN/1.73 code = 02823) CALC BUN/CREAT (test code = 16 RATIO 2235) SODIUM (test code = 2231) 138 MEQ/L POTASSIUM (test code = 2228) 4.2 MEQ/L CHLORIDE (test code = 2215) 100 MEQ/L CARBON DIOXIDE (test code = 24 MEQ/L 220) CALCIUM (test code = 2209) 9.8 MG/DL [...] code = 2219) 39 U/L COMPREHENSIVE METABOLIC [id number] 00:00:00 Test Item Value Reference Range Interpretation Comments GLUCOSE (test code = 2217) 302 MG/DL BUN (test code = 2208) 9 MG/DL CREATININE (test code = 2214) 0.55 MG/DL eGFR AMER. (test code 135 ML/MIN/1.73 = 69172) eGFR NON- AMER. (test 117 ML/MIN/1.73 code = 51019) CALC BUN/CREAT (test code = 16 RATIO [...] (test code = 2219) 39 U/L LIPID [id number] 00:00:00 Test Item Value Reference Range Interpretation Comments CHOLESTEROL (test code = 2210) 214 MG/DL TRIGLYCERIDES (test code = 2232) 581 MG/DL HDL CHOLESTEROL (test code = 38 MG/DL 2220) CALC LDL CHOL (test code = 2237) (NOTE) MG/DL RISK RATIO LDL/HDL (test code = (NOTE) RATIO 2238) LIPID [id number] 00:00:00 Test Item Value Reference Range Interpretation Comments CHOLESTEROL (test code = 2210) 214 MG/DL TRIGLYCERIDES (test code = 2232) 581 MG/DL HDL CHOLESTEROL (test code = 38 MG/DL 2220) CALC LDL CHOL (test code = 2237) (NOTE) MG/DL RISK RATIO LDL/HDL (test code = (NOTE) RATIO 2238) HEMOGLOBIN [id number] 00:00:00 Test Item Value Reference Range Interpretation Comments HEMOGLOBIN A1c (test code = 96453) 12.4 % HEMOGLOBIN [id number] 00:00:00 Test Item Value Reference Range Interpretation Comments HEMOGLOBIN A1c (test code = 42292) 12.4 % HEMOGLOBIN [id number] 00:00:00 Test Item Value Reference Range Interpretation Comments HEMOGLOBIN A1c (test code = 18009) 12.4 % COMPREHENSIVE METABOLIC [id number] 00:00:00 Test Item Value Reference Range Interpretation Comments GLUCOSE (test code = 2217) 302 MG/DL BUN (test code = 2208) 9 MG/DL CREATININE (test code = 2214) 0.55 MG/DL eGFR AMER. (test code 135 ML/MIN/1.73 = 26514) eGFR NON- AMER. (test 117 ML/MIN/1.73 code = 31553) CALC BUN/CREAT (test code = 16 RATIO 2235) SODIUM (test code = 2231) 138 MEQ/L POTASSIUM (test code = 2228) 4.2 MEQ/L CHLORIDE (test code = 2215) 100 MEQ/L CARBON DIOXIDE (test code = 24 MEQ/L 2205) CALCIUM (test code = 2209) 9.8 MG/DL PROTEIN, TOTAL (test code = 7.5 G/DL 2228) ALBUMIN (test code = 220) 4.6 G/DL CALC GLOBULIN (test code = 2.9 G/DL 2239) CALC A/G RATIO (test code = 1.6 RATIO 4) BILIRUBIN, TOTAL (test code = 0.8 MG/DL 2206) ALKALINE PHOSPHATASE (test 105 U/L code = 2204) AST (test code = 2218) 22 U/L ALT (test code = 2219) 39 U/L COMPREHENSIVE METABOLIC [id number] 00:00:00 Test Item Value Reference Range Interpretation Comments GLUCOSE (test code = 2217) 302 MG/DL BUN (test code = 2208) 9 MG/DL CREATININE (test code = 2214) 0.55 MG/DL eGFR AMER. (test code 135 ML/MIN/1.73 = 72808) eGFR NON- AMER. (test 117 ML/MIN/1.73 code = 40670) CALC BUN/CREAT (test code = 16 RATIO 2235) SODIUM (test code = 2231) 138 MEQ/L POTASSIUM (test code = 2228) 4.2 MEQ/L CHLORIDE (test code = 2215) 100 MEQ/L CARBON DIOXIDE (test code = 24 MEQ/L 220) CALCIUM (test code = 2209) 9.8 MG/DL [...] (test code = 2219) 39 U/L LIPID [id number] 00:00:00 Test Item Value Reference Range Interpretation Comments CHOLESTEROL (test code = 2210) 214 MG/DL TRIGLYCERIDES (test code = 2232) 581 MG/DL HDL CHOLESTEROL (test code = 38 MG/DL 2220) CALC LDL CHOL (test code = 2237) (NOTE) MG/DL RISK RATIO LDL/HDL (test code = (NOTE) RATIO 2238) LIPID [id number] 00:00:00 Test Item Value Reference Range Interpretation Comments CHOLESTEROL (test code = 2210) 214 MG/DL TRIGLYCERIDES (test code = 2232) 581 MG/DL HDL CHOLESTEROL (test code = 38 MG/DL 2220) CALC LDL CHOL (test code = 2237) (NOTE) MG/DL RISK RATIO LDL/HDL (test code = (NOTE) RATIO 2238) HEMOGLOBIN [id number] 00:00:00 Test Item Value Reference Range Interpretation Comments HEMOGLOBIN A1c (test code = 76560) 12.4 % HEMOGLOBIN [id number] 00:00:00 Test Item Value Reference Range Interpretation Comments HEMOGLOBIN A1c (test code = 31372) 12.4 % HEMOGLOBIN [id number] 00:00:00 Test Item Value Reference Range Interpretation Comments HEMOGLOBIN A1c (test code = 36755) 12.4 % COMPREHENSIVE METABOLIC [id number] 00:00:00 Test Item Value Reference Range Interpretation Comments GLUCOSE (test code = 2217) 302 MG/DL BUN (test code = 2208) 9 MG/DL CREATININE (test code = 2214) 0.55 MG/DL eGFR AMER. (test code 135 ML/MIN/1.73 = 09560) eGFR NON- AMER. (test 117 ML/MIN/1.73 code = 48431) CALC BUN/CREAT (test code = 16 RATIO [...] code = 2219) 39 U/L COMPREHENSIVE METABOLIC [id number] 00:00:00 Test Item Value Reference Range Interpretation Comments GLUCOSE (test code = 2217) 302 MG/DL BUN (test code = 2208) 9 MG/DL CREATININE (test code = 2214) 0.55 MG/DL eGFR AMER. (test code 135 ML/MIN/1.73 = 45007) eGFR NON- AMER. (test 117 ML/MIN/1.73 code = 02438) CALC BUN/CREAT (test code = 16 RATIO [...] (test code = 2219) 39 U/L LIPID [id number] 00:00:00 Test Item Value Reference Range Interpretation Comments CHOLESTEROL (test code = 2210) 214 MG/DL TRIGLYCERIDES (test code = 2232) 581 MG/DL HDL CHOLESTEROL (test code = 38 MG/DL 2220) CALC LDL CHOL (test code = 2237) (NOTE) MG/DL RISK RATIO LDL/HDL (test code = (NOTE) RATIO 2238) LIPID [id number] 00:00:00 Test Item Value Reference Range Interpretation Comments CHOLESTEROL (test code = 2210) 214 MG/DL TRIGLYCERIDES (test code = 2232) 581 MG/DL HDL CHOLESTEROL (test code = 38 MG/DL 2220) CALC LDL CHOL (test code = 2237) (NOTE) MG/DL RISK RATIO LDL/HDL (test code = (NOTE) RATIO 2238) SARS-CoV-2 (COVID-19) by RT-PCR (HIGH RISK)2019-12-26 00:00:00 Test Item Value Reference Range Interpretation Comments SARS-CoV-2 INTERPRETATION (test NEGATIVE code = 85415) SOURCE (test code = 52184) NOT SPECIFIED SARS-CoV-2 (COVID-19) by RT-PCR (HIGH RISK)2019-12-26 00:00:00 Test Item Value Reference Range Interpretation Comments SARS-CoV-2 INTERPRETATION (test NEGATIVE code = 79309) SOURCE (test code = 01352) NOT SPECIFIED SARS-CoV-2 (COVID-19) by RT-PCR (HIGH RISK)2019-12-26 00:00:00 Test Item Value Reference Range Interpretation Comments SARS-CoV-2 INTERPRETATION (test NEGATIVE code = 42786) SOURCE (test code = 53841) NOT SPECIFIED SARS-CoV-2 (COVID-19) by RT-PCR (HIGH RISK)2019-12-26 00:00:00 Test Item Value Reference Range Interpretation Comments SARS-CoV-2 INTERPRETATION (test NEGATIVE code = 81511) SOURCE (test code = 36663) NOT SPECIFIED SARS-CoV-2 (COVID-19) by RT-PCR (HIGH RISK)2019-12-26 00:00:00 Test Item Value Reference Range Interpretation Comments SARS-CoV-2 INTERPRETATION (test NEGATIVE code = 22739) SOURCE (test code = 57942) NOT SPECIFIED SARS-CoV-2 (COVID-19) by RT-PCR (HIGH RISK)2019-12-26 00:00:00 Test Item Value Reference Range Interpretation Comments SARS-CoV-2 INTERPRETATION (test NEGATIVE code = 73634) SOURCE (test code = 40389) NOT SPECIFIED SARS-CoV-2 (COVID-19) by RT-PCR (HIGH RISK)2019-12-26 00:00:00 Test Item Value Reference Range Interpretation Comments SARS-CoV-2 INTERPRETATION (test NEGATIVE code = 14795) SOURCE (test code = 25476) NOT SPECIFIED SARS-CoV-2 (COVID-19) by RT-PCR (HIGH RISK)2019-12-26 00:00:00 Test Item Value Reference Range Interpretation Comments SARS-CoV-2 INTERPRETATION (test NEGATIVE code = 76482) SOURCE (test code = 68828) NOT SPECIFIED SARS-CoV-2 (COVID-19) by RT-PCR (HIGH RISK)2019-12-26 00:00:00 Test Item Value Reference Range Interpretation Comments SARS-CoV-2 INTERPRETATION (test NEGATIVE code = 06667) SOURCE (test code = 61962) NOT SPECIFIED SARS-CoV-2 (COVID-19) by RT-PCR (HIGH RISK)2019-12-26 00:00:00 Test Item Value Reference Range Interpretation Comments SARS-CoV-2 INTERPRETATION (test NEGATIVE code = 18893) SOURCE (test code = 93726) NOT SPECIFIED SARS-CoV-2 (COVID-19) by RT-PCR (HIGH RISK)2019-12-26 00:00:00 Test Item Value Reference Range Interpretation Comments SARS-CoV-2 INTERPRETATION (test NEGATIVE code = 91939) SOURCE (test code = 35612) NOT SPECIFIED SARS-CoV-2 (COVID-19) by RT-PCR (HIGH RISK)2019-12-26 00:00:00 Test Item Value Reference Range Interpretation Comments SARS-CoV-2 INTERPRETATION (test NEGATIVE code = 60652) SOURCE (test code = 22845) NOT SPECIFIED LIPID PANEL [ADDED]2019-03-02 00:00:00 Test Item Value [...] URINE, RANDOM (test code 4.6 MG/DL = 44872) CALC ALBUMIN/CREAT, RND (test 25 MG/G code = 03426) ALBUMIN/CREATININE RATIO, RANDOM URINE [ADDED]2019-03-02 00:00:00 Test Item Value Reference Range Interpretation Comments CREATININE, URINE, CONC. (test 182.9 MG/DL code = 2072) ALBUMIN, URINE, RANDOM (test code 4.6 MG/DL = 15836) CALC ALBUMIN/CREAT, RND (test 25 MG/G code = 52150) HEMOGLOBIN A1c [ADDED]2019-03-02 00:00:00 Test Item Value Reference Range Interpretation Comments HEMOGLOBIN A1c (test code = 60988) 7.1 % HEMOGLOBIN A1c [ADDED]2019-03-02 00:00:00 Test Item Value Reference Range Interpretation Comments HEMOGLOBIN A1c (test code = 53955) 7.1 % HEMOGLOBIN A1c [ADDED]2019-03-02 00:00:00 Test Item Value Reference Range Interpretation Comments HEMOGLOBIN A1c (test code = 86822) 7.1 % COMPREHENSIVE METABOLIC PANEL [ADDED]2019-03-02 00:00:00 Test Item Value Reference Range Interpretation Comments GLUCOSE (test code = 2217) 132 MG/DL BUN (test code = 2208) 9 MG/DL CREATININE (test code = 2214) 0.56 MG/DL eGFR AMER. (test code 135 ML/MIN/1.73 = 66940) eGFR NON- AMER. (test 117 ML/MIN/1.73 code = 06469) CALC BUN/CREAT (test code = 16 RATIO [...] eGFR AMER. (test code 135 ML/MIN/1.73 = 95935) eGFR NON- AMER. (test 117 ML/MIN/1.73 code = 26247) CALC BUN/CREAT (test code = 16 RATIO [...] URINE, RANDOM (test code 4.6 MG/DL = 53561) CALC ALBUMIN/CREAT, RND (test 25 MG/G code = 37676) ALBUMIN/CREATININE RATIO, RANDOM URINE [ADDED]2019-03-02 00:00:00 Test Item Value Reference Range Interpretation Comments CREATININE, URINE, CONC. (test 182.9 MG/DL code = 2072) ALBUMIN, URINE, RANDOM (test code 4.6 MG/DL = 88137) CALC ALBUMIN/CREAT, RND (test 25 MG/G code = 13577) HEMOGLOBIN A1c [ADDED]2019-03-02 00:00:00 Test Item Value Reference Range Interpretation Comments HEMOGLOBIN A1c (test code = 04322) 7.1 % HEMOGLOBIN A1c [ADDED]2019-03-02 00:00:00 Test Item Value Reference Range Interpretation Comments HEMOGLOBIN A1c (test code = 43120) 7.1 % HEMOGLOBIN A1c [ADDED]2019-03-02 00:00:00 Test Item Value Reference Range Interpretation Comments HEMOGLOBIN A1c (test code = 24477) 7.1 % HEMOGLOBIN A1c [ADDED]2019-03-02 00:00:00 Test Item Value Reference Range Interpretation Comments HEMOGLOBIN A1c (test code = 81131) 7.1 % HEMOGLOBIN A1c [ADDED]2019-03-02 00:00:00 Test Item Value Reference Range Interpretation Comments HEMOGLOBIN A1c (test code = 20625) 7.1 % COMPREHENSIVE METABOLIC PANEL [ADDED]2019-03-02 00:00:00 Test Item Value Reference Range Interpretation Comments GLUCOSE (test code = 2217) 132 MG/DL BUN (test code = 2208) 9 MG/DL CREATININE (test code = 2214) 0.56 MG/DL eGFR AMER. (test code 135 ML/MIN/1.73 = 77030) eGFR NON- AMER. (test 117 ML/MIN/1.73 code = 84818) CALC BUN/CREAT (test code = 16 RATIO 2235) SODIUM (test code = 2231) 142 MEQ/L POTASSIUM (test code = 2228) 4.1 MEQ/L CHLORIDE (test code = 2215) 101 MEQ/L CARBON DIOXIDE (test code = 28 MEQ/L 6) CALCIUM (test code = 2209) 9.5 MG/DL PROTEIN, TOTAL (test code = 7.3 G/DL 2228) ALBUMIN (test code = 2201) 4.3 G/DL CALC GLOBULIN (test code = 3.0 G/DL 2240) CALC A/G RATIO (test code = 1.4 RATIO 2234) BILIRUBIN, TOTAL (test code = 0.3 MG/DL 220) ALKALINE PHOSPHATASE (test 77 U/L code = 2204) AST (test code = 2218) 19 U/L ALT (test code = 2219) 17 U/L COMPREHENSIVE METABOLIC PANEL [ADDED]2019-03-02 00:00:00 Test Item Value Reference Range Interpretation Comments GLUCOSE (test code = 2217) 132 MG/DL BUN (test code = 2208) 9 MG/DL CREATININE (test code = 2214) 0.56 MG/DL eGFR AMER. (test code 135 ML/MIN/1.73 = 51590) eGFR NON- AMER. (test 117 ML/MIN/1.73 code = 24957) CALC BUN/CREAT (test code = 16 RATIO [...] URINE, RANDOM (test code 4.6 MG/DL = 70653) CALC ALBUMIN/CREAT, RND (test 25 MG/G code = 18650) ALBUMIN/CREATININE RATIO, RANDOM URINE [ADDED]2019-03-02 00:00:00 Test Item Value Reference Range Interpretation Comments CREATININE, URINE, CONC. (test 182.9 MG/DL code = 2072) ALBUMIN, URINE, RANDOM (test code 4.6 MG/DL = 44976) CALC ALBUMIN/CREAT, RND (test 25 MG/G code = 80997) HEMOGLOBIN A1c [ADDED]2019-03-02 00:00:00 Test Item Value Reference Range Interpretation Comments HEMOGLOBIN A1c (test code = 65997) 7.1 % COMPREHENSIVE METABOLIC PANEL [ADDED]2019-03-02 00:00:00 Test Item Value Reference Range Interpretation Comments GLUCOSE (test code = 2217) 132 MG/DL BUN (test code = 2208) 9 MG/DL CREATININE (test code = 2214) 0.56 MG/DL eGFR AMER. (test code 135 ML/MIN/1.73 = 96007) eGFR NON- AMER. (test 117 ML/MIN/1.73 code = 16009) CALC BUN/CREAT (test code = 16 RATIO 2235) SODIUM (test code = 2231) 142 MEQ/L POTASSIUM (test code = 2228) 4.1 MEQ/L CHLORIDE (test code = 2215) 101 MEQ/L CARBON DIOXIDE (test code = 28 MEQ/L 2206) CALCIUM (test code = 2209) 9.5 MG/DL [...] eGFR AMER. (test code 135 ML/MIN/1.73 = 43686) eGFR NON- AMER. (test 117 ML/MIN/1.73 code = 90957) CALC BUN/CREAT (test code = 16 RATIO [...] URINE, RANDOM (test code 4.6 MG/DL = 24851) CALC ALBUMIN/CREAT, RND (test 25 MG/G code = 08728) ALBUMIN/CREATININE RATIO, RANDOM URINE [ADDED]2019-03-02 00:00:00 Test Item Value Reference Range Interpretation Comments CREATININE, URINE, CONC. (test 182.9 MG/DL code = 2072) ALBUMIN, URINE, RANDOM (test code 4.6 MG/DL = 81987) CALC ALBUMIN/CREAT, RND (test 25 MG/G code = 17659) HEMOGLOBIN A1c [ADDED]2019-03-02 00:00:00 Test Item Value Reference Range Interpretation Comments HEMOGLOBIN A1c (test code = 72829) 7.1 % HEMOGLOBIN A1c [ADDED]2019-03-02 00:00:00 Test Item Value Reference Range Interpretation Comments HEMOGLOBIN A1c (test code = 41631) 7.1 % HEMOGLOBIN A1c [ADDED]2019-03-02 00:00:00 Test Item Value Reference Range Interpretation Comments HEMOGLOBIN A1c (test code = 56029) 7.1 % COMPREHENSIVE METABOLIC PANEL [ADDED]2019-03-02 00:00:00 Test Item Value Reference Range Interpretation Comments GLUCOSE (test code = 2217) 132 MG/DL BUN (test code = 2208) 9 MG/DL CREATININE (test code = 2214) 0.56 MG/DL eGFR AMER. (test code 135 ML/MIN/1.73 = 46445) eGFR NON- AMER. (test 117 ML/MIN/1.73 code = 13948) CALC BUN/CREAT (test code = 16 RATIO 2235) SODIUM (test code = 2231) 142 MEQ/L POTASSIUM (test code = 2228) 4.1 MEQ/L CHLORIDE (test code = 2215) 101 MEQ/L CARBON DIOXIDE (test code = 28 MEQ/L 6) CALCIUM (test code = 2209) 9.5 MG/DL [...] eGFR AMER. (test code 135 ML/MIN/1.73 = 09964) eGFR NON- AMER. (test 117 ML/MIN/1.73 code = 11987) CALC BUN/CREAT (test code = 16 RATIO [...] URINE, RANDOM (test code 4.6 MG/DL = 76977) CALC ALBUMIN/CREAT, RND (test 25 MG/G code = 02750) ALBUMIN/CREATININE RATIO, RANDOM URINE [ADDED]2019-03-02 00:00:00 Test Item Value Reference Range Interpretation Comments CREATININE, URINE, CONC. (test 182.9 MG/DL code = 2072) ALBUMIN, URINE, RANDOM (test code 4.6 MG/DL = 09285) CALC ALBUMIN/CREAT, RND (test 25 MG/G code = 28647) HEMOGLOBIN A1c [ADDED]2019-03-02 00:00:00 Test Item Value Reference Range Interpretation Comments HEMOGLOBIN A1c (test code = 91577) 7.1 % HEMOGLOBIN A1c [ADDED]2019-03-02 00:00:00 Test Item Value Reference Range Interpretation Comments HEMOGLOBIN A1c (test code = 21284) 7.1 % HEMOGLOBIN A1c [ADDED]2019-03-02 00:00:00 Test Item Value Reference Range Interpretation Comments HEMOGLOBIN A1c (test code = 04735) 7.1 % COMPREHENSIVE METABOLIC PANEL [ADDED]2019-03-02 00:00:00 Test Item Value Reference Range Interpretation Comments GLUCOSE (test code = 2217) 132 MG/DL BUN (test code = 2208) 9 MG/DL CREATININE (test code = 2214) 0.56 MG/DL eGFR AMER. (test code 135 ML/MIN/1.73 = 74229) eGFR NON- AMER. (test 117 ML/MIN/1.73 code = 49333) CALC BUN/CREAT (test code = 16 RATIO 2235) SODIUM (test code = 2231) 142 MEQ/L POTASSIUM (test code = 2228) 4.1 MEQ/L CHLORIDE (test code = 2215) 101 MEQ/L CARBON DIOXIDE (test code = 28 MEQ/L 2206) CALCIUM (test code = 2209) 9.5 MG/DL PROTEIN, TOTAL (test code = 7.3 G/DL 222) ALBUMIN (test code = 2201) 4.3 G/DL CALC GLOBULIN (test code = 3.0 G/DL 2240) CALC A/G RATIO (test code = 1.4 RATIO 2234) BILIRUBIN, TOTAL (test code = 0.3 MG/DL 220) ALKALINE PHOSPHATASE (test 77 U/L code = 2204) AST (test code = 2218) 19 U/L ALT (test code = 2219) 17 U/L COMPREHENSIVE METABOLIC PANEL [ADDED]2019-03-02 00:00:00 Test Item Value Reference Range Interpretation Comments GLUCOSE (test code = 2217) 132 MG/DL BUN (test code = 2208) 9 MG/DL CREATININE (test code = 2214) 0.56 MG/DL eGFR AMER. (test code 135 ML/MIN/1.73 = 83327) eGFR NON- AMER. (test 117 ML/MIN/1.73 code = 71191) CALC BUN/CREAT (test code = 16 RATIO [...] CALC GLOBULIN (test code = 3.0 G/DL 224) CALC A/G RATIO (test code = 1.4 [...] URINE, RANDOM (test code 4.6 MG/DL = 34457) CALC ALBUMIN/CREAT, RND (test 25 MG/G code = 80890) ALBUMIN/CREATININE RATIO, RANDOM URINE [ADDED]2019-03-02 00:00:00 Test Item Value Reference Range Interpretation Comments CREATININE, URINE, CONC. (test 182.9 MG/DL code = 2072) ALBUMIN, URINE, RANDOM (test code 4.6 MG/DL = 66253) CALC ALBUMIN/CREAT, RND (test 25 MG/G code = 59421) HEMOGLOBIN A1c [ADDED]2019-03-02 00:00:00 Test Item Value Reference Range Interpretation Comments HEMOGLOBIN A1c (test code = 57382) 7.1 % HEMOGLOBIN A1c [ADDED]2019-03-02 00:00:00 Test Item Value Reference Range Interpretation Comments HEMOGLOBIN A1c (test code = 24726) 7.1 % HEMOGLOBIN A1c [ADDED]2019-03-02 00:00:00 Test Item Value Reference Range Interpretation Comments HEMOGLOBIN A1c (test code = 49476) 7.1 % COMPREHENSIVE METABOLIC PANEL [ADDED]2019-03-02 00:00:00 Test Item Value Reference Range Interpretation Comments GLUCOSE (test code = 2217) 132 MG/DL BUN (test code = 2208) 9 MG/DL CREATININE (test code = 2214) 0.56 MG/DL eGFR AMER. (test code 135 ML/MIN/1.73 = 66570) eGFR NON- AMER. (test 117 ML/MIN/1.73 code = 65573) CALC BUN/CREAT (test code = 16 RATIO [...] A/G RATIO (test code = 1.4 RATIO 223) BILIRUBIN, TOTAL (test code = 0.3 MG/DL [...] eGFR AMER. (test code 135 ML/MIN/1.73 = 90932) eGFR NON- AMER. (test 117 ML/MIN/1.73 code = 57217) CALC BUN/CREAT (test code = 16 RATIO [...] LDL/HDL (test code = 2.83 RATIO 2238) HEMOGLOBIN [id number] 00:00:00 Test Item Value Reference Range Interpretation Comments HEMOGLOBIN A1c (test code = 62427) 8.1 % HEMOGLOBIN [id number] 00:00:00 Test Item Value Reference Range Interpretation Comments HEMOGLOBIN A1c (test code = 93800) 8.1 % HEMOGLOBIN [id number] 00:00:00 Test Item Value Reference Range Interpretation Comments HEMOGLOBIN A1c (test code = 04308) 8.1 % HEMOGLOBIN [id number] 00:00:00 Test Item Value Reference Range Interpretation Comments HEMOGLOBIN A1c (test code = 10718) 8.1 % HEMOGLOBIN [id number] 00:00:00 Test Item Value Reference Range Interpretation Comments HEMOGLOBIN A1c (test code = 51150) 8.1 % HEMOGLOBIN [id number] 00:00:00 Test Item Value Reference Range Interpretation Comments HEMOGLOBIN A1c (test code = 57988) 8.1 % HEMOGLOBIN [id number] 00:00:00 Test Item Value Reference Range Interpretation Comments HEMOGLOBIN A1c (test code = 87446) 8.1 % HEMOGLOBIN [id number] 00:00:00 Test Item Value Reference Range Interpretation Comments HEMOGLOBIN A1c (test code = 53079) 8.1 % HEMOGLOBIN [id number] 00:00:00 Test Item Value Reference Range Interpretation Comments HEMOGLOBIN A1c (test code = 09081) 8.1 % HEMOGLOBIN [id number] 00:00:00 Test Item Value Reference Range Interpretation Comments HEMOGLOBIN A1c (test code = 02804) 8.1 % HEMOGLOBIN [id number] 00:00:00 Test Item Value Reference Range Interpretation Comments HEMOGLOBIN A1c (test code = 19911) 8.1 % HEMOGLOBIN [id number] 00:00:00 Test Item Value Reference Range Interpretation Comments HEMOGLOBIN A1c (test code = 39983) 8.1 % HEMOGLOBIN [id number] 00:00:00 Test Item Value Reference Range Interpretation Comments HEMOGLOBIN A1c (test code = 75351) 8.1 % HEMOGLOBIN [id number] 00:00:00 Test Item Value Reference Range Interpretation Comments HEMOGLOBIN A1c (test code = 83229) 8.1 % HEMOGLOBIN [id number] 00:00:00 Test Item Value Reference Range Interpretation Comments HEMOGLOBIN A1c (test code = 03654) 8.1 % HEMOGLOBIN [id number] 00:00:00 Test Item Value Reference Range Interpretation Comments HEMOGLOBIN A1c (test code = 27435) 8.1 % HEMOGLOBIN [id number] 00:00:00 Test Item Value Reference Range Interpretation Comments HEMOGLOBIN A1c (test code = 50831) 8.1 % HEMOGLOBIN [id number] 00:00:00 Test Item Value Reference Range Interpretation Comments HEMOGLOBIN A1c (test code = 58260) 8.1 % HEMOGLOBIN [id number] 00:00:00 Test Item Value Reference Range Interpretation Comments HEMOGLOBIN A1c (test code = 18213) 10.3 % HEMOGLOBIN [id number] 00:00:00 Test Item Value Reference Range Interpretation Comments HEMOGLOBIN A1c (test code = 18016) 10.3 % HEMOGLOBIN [id number] 00:00:00 Test Item Value Reference Range Interpretation Comments HEMOGLOBIN A1c (test code = 17641) 10.3 % HEMOGLOBIN [id number] 00:00:00 Test Item Value Reference Range Interpretation Comments HEMOGLOBIN A1c (test code = 14409) 10.3 % HEMOGLOBIN [id number] 00:00:00 Test Item Value Reference Range Interpretation Comments HEMOGLOBIN A1c (test code = 65264) 10.3 % HEMOGLOBIN [id number] 00:00:00 Test Item Value Reference Range Interpretation Comments HEMOGLOBIN A1c (test code = 22993) 10.3 % HEMOGLOBIN [id number] 00:00:00 Test Item Value Reference Range Interpretation Comments HEMOGLOBIN A1c (test code = 56240) 10.3 % HEMOGLOBIN [id number] 00:00:00 Test Item Value Reference Range Interpretation Comments HEMOGLOBIN A1c (test code = 19359) 10.3 % HEMOGLOBIN [id number] 00:00:00 Test Item Value Reference Range Interpretation Comments HEMOGLOBIN A1c (test code = 99131) 10.3 % HEMOGLOBIN [id number] 00:00:00 Test Item Value Reference Range Interpretation Comments HEMOGLOBIN A1c (test code = 83073) 10.3 % HEMOGLOBIN [id number] 00:00:00 Test Item Value Reference Range Interpretation Comments HEMOGLOBIN A1c (test code = 70918) 10.3 % HEMOGLOBIN [id number] 00:00:00 Test Item Value Reference Range Interpretation Comments HEMOGLOBIN A1c (test code = 35445) 10.3 % HEMOGLOBIN [id number] 00:00:00 Test Item Value Reference Range Interpretation Comments HEMOGLOBIN A1c (test code = 15193) 10.3 % HEMOGLOBIN [id number] 00:00:00 Test Item Value Reference Range Interpretation Comments HEMOGLOBIN A1c (test code = 13065) 10.3 % HEMOGLOBIN [id number] 00:00:00 Test Item Value Reference Range Interpretation Comments HEMOGLOBIN A1c (test code = 26098) 10.3 % HEMOGLOBIN [id number] 00:00:00 Test Item Value Reference Range Interpretation Comments HEMOGLOBIN A1c (test code = 55928) 10.3 % HEMOGLOBIN [id number] 00:00:00 Test Item Value Reference Range Interpretation Comments HEMOGLOBIN A1c (test code = 41029) 10.3 % HEMOGLOBIN [id number] 00:00:00 Test Item Value Reference Range Interpretation Comments HEMOGLOBIN A1c (test code = 98977) 10.3 % LIPID [id number] 00:00:00 Test Item Value Reference Range Interpretation Comments CHOLESTEROL (test code = 2210) 229 MG/DL TRIGLYCERIDES (test code = 2232) 439 MG/DL HDL CHOLESTEROL (test code = 38 MG/DL 2220) CALC LDL CHOL (test code = 2237) NOTE MG/DL RISK RATIO LDL/HDL (test code = (NOTE) RATIO 2238) LIPID [id number] 00:00:00 Test Item Value Reference Range Interpretation Comments CHOLESTEROL (test code = 2210) 229 MG/DL TRIGLYCERIDES (test code = 2232) 439 MG/DL HDL CHOLESTEROL (test code = 38 MG/DL 2220) CALC LDL CHOL (test code = 2237) NOTE MG/DL RISK RATIO LDL/HDL (test code = (NOTE) RATIO 2238) HEMOGLOBIN [id number] 00:00:00 Test Item Value Reference Range Interpretation Comments HEMOGLOBIN A1c (test code = 44513) 12.0 % HEMOGLOBIN [id number] 00:00:00 Test Item Value Reference Range Interpretation Comments HEMOGLOBIN A1c (test code = 63583) 12.0 % HEMOGLOBIN [id number] 00:00:00 Test Item Value Reference Range Interpretation Comments HEMOGLOBIN A1c (test code = 42445) 12.0 % LIPID [id number] 00:00:00 Test Item Value Reference Range Interpretation Comments CHOLESTEROL (test code = 2210) 229 MG/DL TRIGLYCERIDES (test code = 2232) 439 MG/DL HDL CHOLESTEROL (test code = 38 MG/DL 2220) CALC LDL CHOL (test code = 2237) NOTE MG/DL RISK RATIO LDL/HDL (test code = (NOTE) RATIO 2238) LIPID [id number] 00:00:00 Test Item Value Reference Range Interpretation Comments CHOLESTEROL (test code = 2210) 229 MG/DL TRIGLYCERIDES (test code = 2232) 439 MG/DL HDL CHOLESTEROL (test code = 38 MG/DL 2220) CALC LDL CHOL (test code = 2237) NOTE MG/DL RISK RATIO LDL/HDL (test code = (NOTE) RATIO 2238) LIPID [id number] 00:00:00 Test Item Value Reference Range Interpretation Comments CHOLESTEROL (test code = 2210) 229 MG/DL TRIGLYCERIDES (test code = 2232) 439 MG/DL HDL CHOLESTEROL (test code = 38 MG/DL 2220) CALC LDL CHOL (test code = 2237) NOTE MG/DL RISK RATIO LDL/HDL (test code = (NOTE) RATIO 2238) HEMOGLOBIN [id number] 00:00:00 Test Item Value Reference Range Interpretation Comments HEMOGLOBIN A1c (test code = 60727) 12.0 % HEMOGLOBIN [id number] 00:00:00 Test Item Value Reference Range Interpretation Comments HEMOGLOBIN A1c (test code = 70635) 12.0 % HEMOGLOBIN [id number] 00:00:00 Test Item Value Reference Range Interpretation Comments HEMOGLOBIN A1c (test code = 22678) 12.0 % LIPID [id number] 00:00:00 Test Item Value Reference Range Interpretation Comments CHOLESTEROL (test code = 2210) 229 MG/DL TRIGLYCERIDES (test code = 2232) 439 MG/DL HDL CHOLESTEROL (test code = 38 MG/DL 2220) CALC LDL CHOL (test code = 2237) NOTE MG/DL RISK RATIO LDL/HDL (test code = (NOTE) RATIO 2238) HEMOGLOBIN [id number] 00:00:00 Test Item Value Reference Range Interpretation Comments HEMOGLOBIN A1c (test code = 07608) 12.0 % HEMOGLOBIN [id number] 00:00:00 Test Item Value Reference Range Interpretation Comments HEMOGLOBIN A1c (test code = 54091) 12.0 % HEMOGLOBIN [id number] 00:00:00 Test Item Value Reference Range Interpretation Comments HEMOGLOBIN A1c (test code = 55722) 12.0 % LIPID [id number] 00:00:00 Test Item Value Reference Range Interpretation Comments CHOLESTEROL (test code = 2210) 229 MG/DL TRIGLYCERIDES (test code = 2232) 439 MG/DL HDL CHOLESTEROL (test code = 38 MG/DL 2220) CALC LDL CHOL (test code = 2237) NOTE MG/DL RISK RATIO LDL/HDL (test code = (NOTE) RATIO 2238) LIPID [id number] 00:00:00 Test Item Value Reference Range Interpretation Comments CHOLESTEROL (test code = 2210) 229 MG/DL TRIGLYCERIDES (test code = 2232) 439 MG/DL HDL CHOLESTEROL (test code = 38 MG/DL 2220) CALC LDL CHOL (test code = 2237) NOTE MG/DL RISK RATIO LDL/HDL (test code = (NOTE) RATIO 2238) HEMOGLOBIN [id number] 00:00:00 Test Item Value Reference Range Interpretation Comments HEMOGLOBIN A1c (test code = 75364) 12.0 % HEMOGLOBIN [id number] 00:00:00 Test Item Value Reference Range Interpretation Comments HEMOGLOBIN A1c (test code = 63830) 12.0 % HEMOGLOBIN [id number] 00:00:00 Test Item Value Reference Range Interpretation Comments HEMOGLOBIN A1c (test code = 23605) 12.0 % LIPID [id number] 00:00:00 Test Item Value Reference Range Interpretation Comments CHOLESTEROL (test code = 2210) 229 MG/DL TRIGLYCERIDES (test code = 2232) 439 MG/DL HDL CHOLESTEROL (test code = 38 MG/DL 2220) CALC LDL CHOL (test code = 2237) NOTE MG/DL RISK RATIO LDL/HDL (test code = (NOTE) RATIO 2238) LIPID [id number] 00:00:00 Test Item Value Reference Range Interpretation Comments CHOLESTEROL (test code = 2210) 229 MG/DL TRIGLYCERIDES (test code = 2232) 439 MG/DL HDL CHOLESTEROL (test code = 38 MG/DL 2220) CALC LDL CHOL (test code = 2237) NOTE MG/DL RISK RATIO LDL/HDL (test code = (NOTE) RATIO 2238) HEMOGLOBIN [id number] 00:00:00 Test Item Value Reference Range Interpretation Comments HEMOGLOBIN A1c (test code = 27209) 12.0 % HEMOGLOBIN [id number] 00:00:00 Test Item Value Reference Range Interpretation Comments HEMOGLOBIN A1c (test code = 63762) 12.0 % HEMOGLOBIN [id number] 00:00:00 Test Item Value Reference Range Interpretation Comments HEMOGLOBIN A1c (test code = 31693) 12.0 % LIPID [id number] 00:00:00 Test Item Value Reference Range Interpretation Comments CHOLESTEROL (test code = 2210) 229 MG/DL TRIGLYCERIDES (test code = 2232) 439 MG/DL HDL CHOLESTEROL (test code = 38 MG/DL 2220) CALC LDL CHOL (test code = 2237) NOTE MG/DL RISK RATIO LDL/HDL (test code = (NOTE) RATIO 2238) LIPID [id number] 00:00:00 Test Item Value Reference Range Interpretation Comments CHOLESTEROL (test code = 2210) 229 MG/DL TRIGLYCERIDES (test code = 2232) 439 MG/DL HDL CHOLESTEROL (test code = 38 MG/DL 2220) CALC LDL CHOL (test code = 2237) NOTE MG/DL RISK RATIO LDL/HDL (test code = (NOTE) RATIO 2238) HEMOGLOBIN [id number] 00:00:00 Test Item Value Reference Range Interpretation Comments HEMOGLOBIN A1c (test code = 98694) 12.0 % HEMOGLOBIN [id number] 00:00:00 Test Item Value Reference Range Interpretation Comments HEMOGLOBIN A1c (test code = 63844) 12.0 % HEMOGLOBIN [id number] 00:00:00 Test Item Value Reference Range Interpretation Comments HEMOGLOBIN A1c (test code = 93614) 12.0 % SEDIMENTATION [id number] 00:00:00 Test Item Value Reference Range Interpretation Comments SEDIMENTATION RATE (test code = 28 MM/HOUR 1017) SEDIMENTATION [id number] 00:00:00 Test Item Value Reference Range Interpretation Comments SEDIMENTATION RATE (test code = 28 MM/HOUR 1017) VITAMIN D, 25 [id number] 00:00:00 Test Item Value Reference Range Interpretation Comments VITAMIN D, 25 OH (test code = 4958) 15 NG/ML VITAMIN D, 25 [id number] 00:00:00 Test Item Value Reference Range Interpretation Comments VITAMIN D, 25 OH (test code = 4958) 15 NG/ML LIZBETH AUTOIMMUNE [id number] 00:00:00 Test Item Value Reference Range Interpretation Comments ANTI-NUCLEAR ANTIBODIES (test code NEGATIVE = 3506) SJOGREN'S SS-A ANTIBODY (test code <0.2 AI = 15729) SJOGREN'S SS-B ANTIBODY (test code <0.2 AI = 73227) GONZALEZ (Sm) ANTIBODY (test code = <0.2 AI 01954) WELL LOGGER ANTIBODY (test code = 67279) 0.5 AI SCL-70 ANTIBODY (test code = 4816) <0.2 AI Terri-1 ANTIBODY (test code = 4680) <0.2 AI CENTROMERE B ANTIBODY (test code = <0.2 AI 4630) RIBOSOMAL P ANTIBODY (test code = <0.2 AI 67654) CHROMATIN ANTIBODY (test code = <0.2 AI 14782) THYROID PEROXIDASE AB (test code = 1 IU/ML 17947) COMPLEMENT C3 (test code = 3509) 189 MG/DL COMPLEMENT C4 (test code = 3510) 44 MG/DL RHEUMATOID FACTOR, QUANT (test code <10 IU/ML = 3502) dsDNA ANTIBODY (test code = 4287) 6.0 IU/ML LIZBETH AUTOIMMUNE [id number] 00:00:00 Test Item Value Reference Range Interpretation Comments ANTI-NUCLEAR ANTIBODIES (test code NEGATIVE = 3506) SJOGREN'S SS-A ANTIBODY (test code <0.2 AI = 80193) SJOGREN'S SS-B ANTIBODY (test code <0.2 AI = 84064) GONZALEZ (Sm) ANTIBODY (test code = <0.2 AI 93237) WELL LOGGER ANTIBODY (test code = 61691) 0.5 AI SCL-70 ANTIBODY (test code = 4606) <0.2 AI Terri-1 ANTIBODY (test code = 4680) <0.2 AI CENTROMERE B ANTIBODY (test code = <0.2 AI 4630) RIBOSOMAL P ANTIBODY (test code = <0.2 AI 70038) CHROMATIN ANTIBODY (test code = <0.2 AI 36171) THYROID PEROXIDASE AB (test code = 1 IU/ML 93688) COMPLEMENT C3 (test code = 3509) 189 MG/DL COMPLEMENT C4 (test code = 3510) 44 MG/DL RHEUMATOID FACTOR, QUANT (test code <10 IU/ML = 3502) dsDNA ANTIBODY (test code = 4287) 6.0 IU/ML C-REACTIVE [id number] 00:00:00 Test Item Value Reference Range Interpretation Comments C-REACTIVE PROTEIN (test code = 0.6 MG/DL 3513) C-REACTIVE [id number] 00:00:00 Test Item Value Reference Range Interpretation Comments C-REACTIVE PROTEIN (test code = 0.6 MG/DL 3513) SEDIMENTATION [id number] 00:00:00 Test Item Value Reference Range Interpretation Comments SEDIMENTATION RATE (test code = 28 MM/HOUR 1017) SEDIMENTATION [id number] 00:00:00 Test Item Value Reference Range Interpretation Comments SEDIMENTATION RATE (test code = 28 MM/HOUR 1017) VITAMIN D, 25 [id number] 00:00:00 Test Item Value Reference Range Interpretation Comments VITAMIN D, 25 OH (test code = 4958) 15 NG/ML VITAMIN D, 25 [id number] 00:00:00 Test Item Value Reference Range Interpretation Comments VITAMIN D, 25 OH (test code = 4958) 15 NG/ML LIZBETH AUTOIMMUNE [id number] 00:00:00 Test Item Value Reference Range Interpretation Comments ANTI-NUCLEAR ANTIBODIES (test code NEGATIVE = 3506) SJOGREN'S SS-A ANTIBODY (test code <0.2 AI = 33189) SJOGREN'S SS-B ANTIBODY (test code <0.2 AI = 37471) GONZALEZ (Sm) ANTIBODY (test code = <0.2 AI 42032) WELL LOGGER ANTIBODY (test code = 91092) 0.5 AI SCL-70 ANTIBODY (test code = 4606) <0.2 AI Terri-1 ANTIBODY (test code = 4680) <0.2 AI CENTROMERE B ANTIBODY (test code = <0.2 AI 4630) RIBOSOMAL P ANTIBODY (test code = <0.2 AI 78638) CHROMATIN ANTIBODY (test code = <0.2 AI 56248) THYROID PEROXIDASE AB (test code = 1 IU/ML 65798) COMPLEMENT C3 (test code = 3509) 189 MG/DL COMPLEMENT C4 (test code = 3510) 44 MG/DL RHEUMATOID FACTOR, QUANT (test code <10 IU/ML = 3502) dsDNA ANTIBODY (test code = 4287) 6.0 IU/ML LIZBETH AUTOIMMUNE [id number] 00:00:00 Test Item Value Reference Range Interpretation Comments ANTI-NUCLEAR ANTIBODIES (test code NEGATIVE = 3506) SJOGREN'S SS-A ANTIBODY (test code <0.2 AI = 15821) SJOGREN'S SS-B ANTIBODY (test code <0.2 AI = 83967) GONZALEZ (Sm) ANTIBODY (test code = <0.2 AI 90277) WELL LOGGER ANTIBODY (test code = 71510) 0.5 AI SCL-70 ANTIBODY (test code = 4606) <0.2 AI Terri-1 ANTIBODY (test code = 4680) <0.2 AI CENTROMERE B ANTIBODY (test code = <0.2 AI 4630) RIBOSOMAL P ANTIBODY (test code = <0.2 AI 19535) CHROMATIN ANTIBODY (test code = <0.2 AI 65572) THYROID PEROXIDASE AB (test code = 1 IU/ML 64470) COMPLEMENT C3 (test code = 3509) 189 MG/DL COMPLEMENT C4 (test code = 3510) 44 MG/DL RHEUMATOID FACTOR, QUANT (test code <10 IU/ML = 3502) dsDNA ANTIBODY (test code = 4287) 6.0 IU/ML C-REACTIVE [id number] 00:00:00 Test Item Value Reference Range Interpretation Comments C-REACTIVE PROTEIN (test code = 0.6 MG/DL 3513) C-REACTIVE [id number] 00:00:00 Test Item Value Reference Range Interpretation Comments C-REACTIVE PROTEIN (test code = 0.6 MG/DL 3513) SEDIMENTATION [id number] 00:00:00 Test Item Value Reference Range Interpretation Comments SEDIMENTATION RATE (test code = 28 MM/HOUR 1017) SEDIMENTATION [id number] 00:00:00 Test Item Value Reference Range Interpretation Comments SEDIMENTATION RATE (test code = 28 MM/HOUR 1017) VITAMIN D, 25 [id number] 00:00:00 Test Item Value Reference Range Interpretation Comments VITAMIN D, 25 OH (test code = 4958) 15 NG/ML VITAMIN D, 25 [id number] 00:00:00 Test Item Value Reference Range Interpretation Comments VITAMIN D, 25 OH (test code = 4958) 15 NG/ML LIZBETH AUTOIMMUNE [id number] 00:00:00 Test Item Value Reference Range Interpretation Comments ANTI-NUCLEAR ANTIBODIES (test code NEGATIVE = 3506) SJOGREN'S SS-A ANTIBODY (test code <0.2 AI = 45948) SJOGREN'S SS-B ANTIBODY (test code <0.2 AI = 40927) GONZALEZ (Sm) ANTIBODY (test code = <0.2 AI 04141) WELL LOGGER ANTIBODY (test code = 61857) 0.5 AI SCL-70 ANTIBODY (test code = 4606) <0.2 AI Terri-1 ANTIBODY (test code = 4680) <0.2 AI CENTROMERE B ANTIBODY (test code = <0.2 AI 4630) RIBOSOMAL P ANTIBODY (test code = <0.2 AI 89770) CHROMATIN ANTIBODY (test code = <0.2 AI 64357) THYROID PEROXIDASE AB (test code = 1 IU/ML 92676) COMPLEMENT C3 (test code = 3509) 189 MG/DL COMPLEMENT C4 (test code = 3510) 44 MG/DL RHEUMATOID FACTOR, QUANT (test code <10 IU/ML = 3502) dsDNA ANTIBODY (test code = 4287) 6.0 IU/ML LIZBETH AUTOIMMUNE [id number] 00:00:00 Test Item Value Reference Range Interpretation Comments ANTI-NUCLEAR ANTIBODIES (test code NEGATIVE = 3506) SJOGREN'S SS-A ANTIBODY (test code <0.2 AI = 44067) SJOGREN'S SS-B ANTIBODY (test code <0.2 AI = 69281) GONZALEZ (Sm) ANTIBODY (test code = <0.2 AI 75750) WELL LOGGER ANTIBODY (test code = 14814) 0.5 AI SCL-70 ANTIBODY (test code = 4606) <0.2 AI Terri-1 ANTIBODY (test code = 4680) <0.2 AI CENTROMERE B ANTIBODY (test code = <0.2 AI 4630) RIBOSOMAL P ANTIBODY (test code = <0.2 AI 70076) CHROMATIN ANTIBODY (test code = <0.2 AI 38535) THYROID PEROXIDASE AB (test code = 1 IU/ML 13002) COMPLEMENT C3 (test code = 3509) 189 MG/DL COMPLEMENT C4 (test code = 3510) 44 MG/DL RHEUMATOID FACTOR, QUANT (test code <10 IU/ML = 3502) dsDNA ANTIBODY (test code = 4287) 6.0 IU/ML C-REACTIVE [id number] 00:00:00 Test Item Value Reference Range Interpretation Comments C-REACTIVE PROTEIN (test code = 0.6 MG/DL 3513) C-REACTIVE [id number] 00:00:00 Test Item Value Reference Range Interpretation Comments C-REACTIVE PROTEIN (test code = 0.6 MG/DL 3513) SEDIMENTATION [id number] 00:00:00 Test Item Value Reference Range Interpretation Comments SEDIMENTATION RATE (test code = 28 MM/HOUR 1017) SEDIMENTATION [id number] 00:00:00 Test Item Value Reference Range Interpretation Comments SEDIMENTATION RATE (test code = 28 MM/HOUR 1017) VITAMIN D, 25 [id number] 00:00:00 Test Item Value Reference Range Interpretation Comments VITAMIN D, 25 OH (test code = 4958) 15 NG/ML VITAMIN D, 25 [id number] 00:00:00 Test Item Value Reference Range Interpretation Comments VITAMIN D, 25 OH (test code = 4958) 15 NG/ML LIZBETH AUTOIMMUNE [id number] 00:00:00 Test Item Value Reference Range Interpretation Comments ANTI-NUCLEAR ANTIBODIES (test code NEGATIVE = 3506) SJOGREN'S SS-A ANTIBODY (test code <0.2 AI = 78323) SJOGREN'S SS-B ANTIBODY (test code <0.2 AI = 08183) GONZALEZ (Sm) ANTIBODY (test code = <0.2 AI 62630) WELL LOGGER ANTIBODY (test code = 26620) 0.5 AI SCL-70 ANTIBODY (test code = 4606) <0.2 AI Terri-1 ANTIBODY (test code = 4680) <0.2 AI CENTROMERE B ANTIBODY (test code = <0.2 AI 4630) RIBOSOMAL P ANTIBODY (test code = <0.2 AI 33343) CHROMATIN ANTIBODY (test code = <0.2 AI 39350) THYROID PEROXIDASE AB (test code = 1 IU/ML 85149) COMPLEMENT C3 (test code = 3509) 189 MG/DL COMPLEMENT C4 (test code = 3510) 44 MG/DL RHEUMATOID FACTOR, QUANT (test code <10 IU/ML = 3502) dsDNA ANTIBODY (test code = 4287) 6.0 IU/ML LIZBETH AUTOIMMUNE [id number] 00:00:00 Test Item Value Reference Range Interpretation Comments ANTI-NUCLEAR ANTIBODIES (test code NEGATIVE = 3506) SJOGREN'S SS-A ANTIBODY (test code <0.2 AI = 32056) SJOGREN'S SS-B ANTIBODY (test code <0.2 AI = 12150) GONZALEZ (Sm) ANTIBODY (test code = <0.2 AI 37479) WELL LOGGER ANTIBODY (test code = 78179) 0.5 AI SCL-70 ANTIBODY (test code = 4606) <0.2 AI Terri-1 ANTIBODY (test code = 4680) <0.2 AI CENTROMERE B ANTIBODY (test code = <0.2 AI 4630) RIBOSOMAL P ANTIBODY (test code = <0.2 AI 60606) CHROMATIN ANTIBODY (test code = <0.2 AI 24605) THYROID PEROXIDASE AB (test code = 1 IU/ML 93334) COMPLEMENT C3 (test code = 3509) 189 MG/DL COMPLEMENT C4 (test code = 3510) 44 MG/DL RHEUMATOID FACTOR, QUANT (test code <10 IU/ML = 3502) dsDNA ANTIBODY (test code = 4287) 6.0 IU/ML C-REACTIVE [id number] 00:00:00 Test Item Value Reference Range Interpretation Comments C-REACTIVE PROTEIN (test code = 0.6 MG/DL 3513) C-REACTIVE [id number] 00:00:00 Test Item Value Reference Range Interpretation Comments C-REACTIVE PROTEIN (test code = 0.6 MG/DL 3513) SEDIMENTATION [id number] 00:00:00 Test Item Value Reference Range Interpretation Comments SEDIMENTATION RATE (test code = 28 MM/HOUR 1017) SEDIMENTATION [id number] 00:00:00 Test Item Value Reference Range Interpretation Comments SEDIMENTATION RATE (test code = 28 MM/HOUR 1017) VITAMIN D, 25 [id number] 00:00:00 Test Item Value Reference Range Interpretation Comments VITAMIN D, 25 OH (test code = 4958) 15 NG/ML VITAMIN D, 25 [id number] 00:00:00 Test Item Value Reference Range Interpretation Comments VITAMIN D, 25 OH (test code = 4958) 15 NG/ML LIZBETH AUTOIMMUNE [id number] 00:00:00 Test Item Value Reference Range Interpretation Comments ANTI-NUCLEAR ANTIBODIES (test code NEGATIVE = 3506) SJOGREN'S SS-A ANTIBODY (test code <0.2 AI = 73749) SJOGREN'S SS-B ANTIBODY (test code <0.2 AI = 64245) GONZALEZ (Sm) ANTIBODY (test code = <0.2 AI 47644) WELL LOGGER ANTIBODY (test code = 22147) 0.5 AI SCL-70 ANTIBODY (test code = 4606) <0.2 AI Terri-1 ANTIBODY (test code = 4680) <0.2 AI CENTROMERE B ANTIBODY (test code = <0.2 AI 4630) RIBOSOMAL P ANTIBODY (test code = <0.2 AI 17413) CHROMATIN ANTIBODY (test code = <0.2 AI 25372) THYROID PEROXIDASE AB (test code = 1 IU/ML 40613) COMPLEMENT C3 (test code = 3509) 189 MG/DL COMPLEMENT C4 (test code = 3510) 44 MG/DL RHEUMATOID FACTOR, QUANT (test code <10 IU/ML = 3502) dsDNA ANTIBODY (test code = 4287) 6.0 IU/ML LIZBETH AUTOIMMUNE [id number] 00:00:00 Test Item Value Reference Range Interpretation Comments ANTI-NUCLEAR ANTIBODIES (test code NEGATIVE = 3506) SJOGREN'S SS-A ANTIBODY (test code <0.2 AI = 33903) SJOGREN'S SS-B ANTIBODY (test code <0.2 AI = 47468) GONZALEZ (Sm) ANTIBODY (test code = <0.2 AI 20563) WELL LOGGER ANTIBODY (test code = 95654) 0.5 AI SCL-70 ANTIBODY (test code = 4606) <0.2 AI Terri-1 ANTIBODY (test code = 4680) <0.2 AI CENTROMERE B ANTIBODY (test code = <0.2 AI 4630) RIBOSOMAL P ANTIBODY (test code = <0.2 AI 60601) CHROMATIN ANTIBODY (test code = <0.2 AI 51860) THYROID PEROXIDASE AB (test code = 1 IU/ML 56276) COMPLEMENT C3 (test code = 3509) 189 MG/DL COMPLEMENT C4 (test code = 3510) 44 MG/DL RHEUMATOID FACTOR, QUANT (test code <10 IU/ML = 3502) dsDNA ANTIBODY (test code = 4287) 6.0 IU/ML C-REACTIVE [id number] 00:00:00 Test Item Value Reference Range Interpretation Comments C-REACTIVE PROTEIN (test code = 0.6 MG/DL 3513) C-REACTIVE [id number] 00:00:00 Test Item Value Reference Range Interpretation Comments C-REACTIVE PROTEIN (test code = 0.6 MG/DL 3513) SEDIMENTATION [id number] 00:00:00 Test Item Value Reference Range Interpretation Comments SEDIMENTATION RATE (test code = 28 MM/HOUR 1017) SEDIMENTATION [id number] 00:00:00 Test Item Value Reference Range Interpretation Comments SEDIMENTATION RATE (test code = 28 MM/HOUR 1017) VITAMIN D, 25 [id number] 00:00:00 Test Item Value Reference Range Interpretation Comments VITAMIN D, 25 OH (test code = 4958) 15 NG/ML VITAMIN D, 25 [id number] 00:00:00 Test Item Value Reference Range Interpretation Comments VITAMIN D, 25 OH (test code = 4958) 15 NG/ML LIZBETH AUTOIMMUNE [id number] 00:00:00 Test Item Value Reference Range Interpretation Comments ANTI-NUCLEAR ANTIBODIES (test code NEGATIVE = 3506) SJOGREN'S SS-A ANTIBODY (test code <0.2 AI = 04086) SJOGREN'S SS-B ANTIBODY (test code <0.2 AI = 76070) GONZALEZ (Sm) ANTIBODY (test code = <0.2 AI 08570) WELL LOGGER ANTIBODY (test code = 35227) 0.5 AI SCL-70 ANTIBODY (test code = 4606) <0.2 AI Terri-1 ANTIBODY (test code = 4680) <0.2 AI CENTROMERE B ANTIBODY (test code = <0.2 AI 4630) RIBOSOMAL P ANTIBODY (test code = <0.2 AI 93287) CHROMATIN ANTIBODY (test code = <0.2 AI 93731) THYROID PEROXIDASE AB (test code = 1 IU/ML 86290) COMPLEMENT C3 (test code = 3509) 189 MG/DL COMPLEMENT C4 (test code = 3510) 44 MG/DL RHEUMATOID FACTOR, QUANT (test code <10 IU/ML = 3502) dsDNA ANTIBODY (test code = 4287) 6.0 IU/ML LIZBETH AUTOIMMUNE [id number] 00:00:00 Test Item Value Reference Range Interpretation Comments ANTI-NUCLEAR ANTIBODIES (test code NEGATIVE = 3506) SJOGREN'S SS-A ANTIBODY (test code <0.2 AI = 03472) SJOGREN'S SS-B ANTIBODY (test code <0.2 AI = 93851) GONZALEZ (Sm) ANTIBODY (test code = <0.2 AI 20641) WELL LOGGER ANTIBODY (test code = 11179) 0.5 AI SCL-70 ANTIBODY (test code = 4606) <0.2 AI Terri-1 ANTIBODY (test code = 4680) <0.2 AI CENTROMERE B ANTIBODY (test code = <0.2 AI 4630) RIBOSOMAL P ANTIBODY (test code = <0.2 AI 86460) CHROMATIN ANTIBODY (test code = <0.2 AI 70811) THYROID PEROXIDASE AB (test code = 1 IU/ML 90922) COMPLEMENT C3 (test code = 3509) 189 MG/DL COMPLEMENT C4 (test code = 3510) 44 MG/DL RHEUMATOID FACTOR, QUANT (test code <10 IU/ML = 3502) dsDNA ANTIBODY (test code = 4287) 6.0 IU/ML C-REACTIVE [id number] 00:00:00 Test Item Value Reference Range Interpretation Comments C-REACTIVE PROTEIN (test code = 0.6 MG/DL 3513) C-REACTIVE [id number] 00:00:00 Test Item Value Reference Range Interpretation Comments C-REACTIVE PROTEIN (test code = 0.6 MG/DL 3513) HEMOGLOBIN [id number] 00:00:00 Test Item Value Reference Range Interpretation Comments HEMOGLOBIN A1c (test code = 11561) 7.5 % HEMOGLOBIN [id number] 00:00:00 Test Item Value Reference Range Interpretation Comments HEMOGLOBIN A1c (test code = 12004) 7.5 % HEMOGLOBIN [id number] 00:00:00 Test Item Value Reference Range Interpretation Comments HEMOGLOBIN A1c (test code = 81672) 7.5 % HEMOGLOBIN [id number] 00:00:00 Test Item Value Reference Range Interpretation Comments HEMOGLOBIN A1c (test code = 93597) 7.5 % HEMOGLOBIN [id number] 00:00:00 Test Item Value Reference Range Interpretation Comments HEMOGLOBIN A1c (test code = 27585) 7.5 % HEMOGLOBIN [id number] 00:00:00 Test Item Value Reference Range Interpretation Comments HEMOGLOBIN A1c (test code = 52658) 7.5 % HEMOGLOBIN [id number] 00:00:00 Test Item Value Reference Range Interpretation Comments HEMOGLOBIN A1c (test code = 46638) 7.5 % HEMOGLOBIN [id number] 00:00:00 Test Item Value Reference Range Interpretation Comments HEMOGLOBIN A1c (test code = 73280) 7.5 % HEMOGLOBIN [id number] 00:00:00 Test Item Value Reference Range Interpretation Comments HEMOGLOBIN A1c (test code = 04064) 7.5 % HEMOGLOBIN [id number] 00:00:00 Test Item Value Reference Range Interpretation Comments HEMOGLOBIN A1c (test code = 19151) 7.5 % HEMOGLOBIN [id number] 00:00:00 Test Item Value Reference Range Interpretation Comments HEMOGLOBIN A1c (test code = 77999) 7.5 % HEMOGLOBIN [id number] 00:00:00 Test Item Value Reference Range Interpretation Comments HEMOGLOBIN A1c (test code = 55071) 7.5 % HEMOGLOBIN [id number] 00:00:00 Test Item Value Reference Range Interpretation Comments HEMOGLOBIN A1c (test code = 20812) 7.5 % HEMOGLOBIN [id number] 00:00:00 Test Item Value Reference Range Interpretation Comments HEMOGLOBIN A1c (test code = 52633) 7.5 % HEMOGLOBIN [id number] 00:00:00 Test Item Value Reference Range Interpretation Comments HEMOGLOBIN A1c (test code = 68917) 7.5 % HEMOGLOBIN [id number] 00:00:00 Test Item Value Reference Range Interpretation Comments HEMOGLOBIN A1c (test code = 31770) 7.5 % HEMOGLOBIN [id number] 00:00:00 Test Item Value Reference Range Interpretation Comments HEMOGLOBIN A1c (test code = 47018) 7.5 % HEMOGLOBIN [id number] 00:00:00 Test Item Value Reference Range Interpretation Comments HEMOGLOBIN A1c (test code = 25461) 7.5 % IRON BINDING CAPACITY AND IRON AND % [id number] 00:00:00 Test Item Value Reference Range Interpretation Comments IRON, SERUM (test code = 2222) 77 UG/DL UNSATURATED IBC (test code = 16443) 273 UG/DL CALC TOTAL IBC (test code = 2077) 350 UG/DL CALC % IRON SAT (test code = 2079) 22 % IRON BINDING CAPACITY AND IRON AND % [id number] 00:00:00 Test Item Value Reference Range Interpretation Comments IRON, SERUM (test code = 2222) 77 UG/DL UNSATURATED IBC (test code = 52248) 273 UG/DL CALC TOTAL IBC (test code = 2077) 350 UG/DL CALC % IRON SAT (test code = 2079) 22 % RETICULOCYTE [id number] 00:00:00 Test Item Value Reference Range Interpretation Comments RETICULOCYTE COUNT (test code = 1018) 1.1 % RETICULOCYTE [id number] 00:00:00 Test Item Value Reference Range Interpretation Comments RETICULOCYTE COUNT (test code = 1018) 1.1 % VITAMIN B 12 AND FOLIC [id number] 00:00:00 Test Item Value Reference Range Interpretation Comments VITAMIN B-12 (test code = 2840) 485 PG/ML FOLIC ACID (test code = 2695) 14.6 UG/L VITAMIN B 12 AND FOLIC [id number] 00:00:00 Test Item Value Reference Range Interpretation Comments VITAMIN B-12 (test code = 2840) 485 PG/ML FOLIC ACID (test code = 2695) 14.6 UG/L [id number] 00:00:00 Test Item Value Reference Range Interpretation Comments FERRITIN (test code = 2075) 26 NG/ML [id number] 00:00:00 Test Item Value Reference Range Interpretation Comments FERRITIN (test code = 2075) 26 NG/ML IRON BINDING CAPACITY AND IRON AND % [id number] 00:00:00 Test Item Value Reference Range Interpretation Comments IRON, SERUM (test code = 2222) 77 UG/DL UNSATURATED IBC (test code = 91380) 273 UG/DL CALC TOTAL IBC (test code = 7) 350 UG/DL CALC % IRON SAT (test code = 9) 22 % IRON BINDING CAPACITY AND IRON AND % [id number] 00:00:00 Test Item Value Reference Range Interpretation Comments IRON, SERUM (test code = 2222) 77 UG/DL UNSATURATED IBC (test code = 42195) 273 UG/DL CALC TOTAL IBC (test code = 7) 350 UG/DL CALC % IRON SAT (test code = 9) 22 % RETICULOCYTE [id number] 00:00:00 Test Item Value Reference Range Interpretation Comments RETICULOCYTE COUNT (test code = 1018) 1.1 % RETICULOCYTE [id number] 00:00:00 Test Item Value Reference Range Interpretation Comments RETICULOCYTE COUNT (test code = 1018) 1.1 % VITAMIN B 12 AND FOLIC [id number] 00:00:00 Test Item Value Reference Range Interpretation Comments VITAMIN B-12 (test code = 2840) 485 PG/ML FOLIC ACID (test code = 2695) 14.6 UG/L VITAMIN B 12 AND FOLIC [id number] 00:00:00 Test Item Value Reference Range Interpretation Comments VITAMIN B-12 (test code = 2840) 485 PG/ML FOLIC ACID (test code = 2695) 14.6 UG/L VITAMIN B 12 AND FOLIC [id number] 00:00:00 Test Item Value Reference Range Interpretation Comments VITAMIN B-12 (test code = 2840) 485 PG/ML FOLIC ACID (test code = 2695) 14.6 UG/L [id number] 00:00:00 Test Item Value Reference Range Interpretation Comments FERRITIN (test code = 2074) 26 NG/ML [id number] 00:00:00 Test Item Value Reference Range Interpretation Comments FERRITIN (test code = 2074) 26 NG/ML IRON BINDING CAPACITY AND IRON AND % [id number] 00:00:00 Test Item Value Reference Range Interpretation Comments IRON, SERUM (test code = 2222) 77 UG/DL UNSATURATED IBC (test code = 12730) 273 UG/DL CALC TOTAL IBC (test code = 2076) 350 UG/DL CALC % IRON SAT (test code = 9) 22 % IRON BINDING CAPACITY AND IRON AND % [id number] 00:00:00 Test Item Value Reference Range Interpretation Comments IRON, SERUM (test code = 2) 77 UG/DL UNSATURATED IBC (test code = 40339) 273 UG/DL CALC TOTAL IBC (test code = 2076) 350 UG/DL CALC % IRON SAT (test code = 2078) 22 % RETICULOCYTE [id number] 00:00:00 Test Item Value Reference Range Interpretation Comments RETICULOCYTE COUNT (test code = 1018) 1.1 % RETICULOCYTE [id number] 00:00:00 Test Item Value Reference Range Interpretation Comments RETICULOCYTE COUNT (test code = 1018) 1.1 % VITAMIN B 12 AND FOLIC [id number] 00:00:00 Test Item Value Reference Range Interpretation Comments VITAMIN B-12 (test code = 2840) 485 PG/ML FOLIC ACID (test code = 2695) 14.6 UG/L [id number] 00:00:00 Test Item Value Reference Range Interpretation Comments FERRITIN (test code = 2074) 26 NG/ML [id number] 00:00:00 Test Item Value Reference Range Interpretation Comments FERRITIN (test code = 2074) 26 NG/ML IRON BINDING CAPACITY AND IRON AND % [id number] 00:00:00 Test Item Value Reference Range Interpretation Comments IRON, SERUM (test code = 2222) 77 UG/DL UNSATURATED IBC (test code = 50718) 273 UG/DL CALC TOTAL IBC (test code = 7) 350 UG/DL CALC % IRON SAT (test code = 9) 22 % IRON BINDING CAPACITY AND IRON AND % [id number] 00:00:00 Test Item Value Reference Range Interpretation Comments IRON, SERUM (test code = 2) 77 UG/DL UNSATURATED IBC (test code = ) 273 UG/DL CALC TOTAL IBC (test code = 2076) 350 UG/DL CALC % IRON SAT (test code = 2078) 22 % RETICULOCYTE [id number] 00:00:00 Test Item Value Reference Range Interpretation Comments RETICULOCYTE COUNT (test code = 1018) 1.1 % RETICULOCYTE [id number] 00:00:00 Test Item Value Reference Range Interpretation Comments RETICULOCYTE COUNT (test code = 1018) 1.1 % VITAMIN B 12 AND FOLIC [id number] 00:00:00 Test Item Value Reference Range Interpretation Comments VITAMIN B-12 (test code = 2840) 485 PG/ML FOLIC ACID (test code = 2695) 14.6 UG/L VITAMIN B 12 AND FOLIC [id number] 00:00:00 Test Item Value Reference Range Interpretation Comments VITAMIN B-12 (test code = 2840) 485 PG/ML FOLIC ACID (test code = 2695) 14.6 UG/L [id number] 00:00:00 Test Item Value Reference Range Interpretation Comments FERRITIN (test code = 5) 26 NG/ML [id number] 00:00:00 Test Item Value Reference Range Interpretation Comments FERRITIN (test code = 5) 26 NG/ML IRON BINDING CAPACITY AND IRON AND % [id number] 00:00:00 Test Item Value Reference Range Interpretation Comments IRON, SERUM (test code = 2221) 77 UG/DL UNSATURATED IBC (test code = ) 273 UG/DL CALC TOTAL IBC (test code = 2076) 350 UG/DL CALC % IRON SAT (test code = 2078) 22 % IRON BINDING CAPACITY AND IRON AND % [id number] 00:00:00 Test Item Value Reference Range Interpretation Comments IRON, SERUM (test code = 2) 77 UG/DL UNSATURATED IBC (test code = 46200) 273 UG/DL CALC TOTAL IBC (test code = 2076) 350 UG/DL CALC % IRON SAT (test code = 2078) 22 % RETICULOCYTE [id number] 00:00:00 Test Item Value Reference Range Interpretation Comments RETICULOCYTE COUNT (test code = 1018) 1.1 % RETICULOCYTE [id number] 00:00:00 Test Item Value Reference Range Interpretation Comments RETICULOCYTE COUNT (test code = 1018) 1.1 % VITAMIN B 12 AND FOLIC [id number] 00:00:00 Test Item Value Reference Range Interpretation Comments VITAMIN B-12 (test code = 2840) 485 PG/ML FOLIC ACID (test code = 2695) 14.6 UG/L VITAMIN B 12 AND FOLIC [id number] 00:00:00 Test Item Value Reference Range Interpretation Comments VITAMIN B-12 (test code = 2840) 485 PG/ML FOLIC ACID (test code = 2695) 14.6 UG/L [id number] 00:00:00 Test Item Value Reference Range Interpretation Comments FERRITIN (test code = 2075) 26 NG/ML [id number] 00:00:00 Test Item Value Reference Range Interpretation Comments FERRITIN (test code = 2075) 26 NG/ML IRON BINDING CAPACITY AND IRON AND % [id number] 00:00:00 Test Item Value Reference Range Interpretation Comments IRON, SERUM (test code = 2222) 77 UG/DL UNSATURATED IBC (test code = 26569) 273 UG/DL CALC TOTAL IBC (test code = 2077) 350 UG/DL CALC % IRON SAT (test code = 2079) 22 % IRON BINDING CAPACITY AND IRON AND % [id number] 00:00:00 Test Item Value Reference Range Interpretation Comments IRON, SERUM (test code = 2222) 77 UG/DL UNSATURATED IBC (test code = 35380) 273 UG/DL CALC TOTAL IBC (test code = 2077) 350 UG/DL CALC % IRON SAT (test code = 2079) 22 % RETICULOCYTE [id number] 00:00:00 Test Item Value Reference Range Interpretation Comments RETICULOCYTE COUNT (test code = 1018) 1.1 % RETICULOCYTE [id number] 00:00:00 Test Item Value Reference Range Interpretation Comments RETICULOCYTE COUNT (test code = 1018) 1.1 % VITAMIN B 12 AND FOLIC [id number] 00:00:00 Test Item Value Reference Range Interpretation Comments VITAMIN B-12 (test code = 2840) 485 PG/ML FOLIC ACID (test code = 2695) 14.6 UG/L VITAMIN B 12 AND FOLIC [id number] 00:00:00 Test Item Value Reference Range Interpretation Comments VITAMIN B-12 (test code = 2840) 485 PG/ML FOLIC ACID (test code = 2695) 14.6 UG/L [id number] 00:00:00 Test Item Value Reference Range Interpretation Comments FERRITIN (test code = 2075) 26 NG/ML [id number] 00:00:00 Test Item Value Reference Range Interpretation Comments FERRITIN (test code = 2075) 26 NG/ML HEMOGLOBIN [id number] 00:00:00 Test Item Value Reference Range Interpretation Comments HEMOGLOBIN A1c (test code = 30796) 6.5 % HEMOGLOBIN [id number] 00:00:00 Test Item Value Reference Range Interpretation Comments HEMOGLOBIN A1c (test code = 20901) 6.5 % HEMOGLOBIN [id number] 00:00:00 Test Item Value Reference Range Interpretation Comments HEMOGLOBIN A1c (test code = 59153) 6.5 % SEDIMENTATION [id number] 00:00:00 Test Item Value Reference Range Interpretation Comments SEDIMENTATION RATE (test code = 16 MM/HOUR 1017) SEDIMENTATION [id number] 00:00:00 Test Item Value Reference Range Interpretation Comments SEDIMENTATION RATE (test code = 16 MM/HOUR 1017) C-REACTIVE [id number] 00:00:00 Test Item Value Reference Range Interpretation Comments C-REACTIVE PROTEIN (test code = 0.5 MG/DL 3513) C-REACTIVE [id number] 00:00:00 Test Item Value Reference Range Interpretation Comments C-REACTIVE PROTEIN (test code = 0.5 MG/DL 3513) MICROALBUMIN/CREATININE, RANDOM AND [id number] 00:00:00 Test Item Value Reference Range Interpretation Comments CREATININE, URINE, CONC. (test 158.3 MG/DL code = 2072) ALBUMIN, URINE, RANDOM (test code 3.5 MG/DL = 54656) CALC ALBUMIN/CREAT, RND (test 22 MG/G code = 73962) MICROALBUMIN/CREATININE, RANDOM AND [id number] 00:00:00 Test Item Value Reference Range Interpretation Comments CREATININE, URINE, CONC. (test 158.3 MG/DL code = 2072) ALBUMIN, URINE, RANDOM (test code 3.5 MG/DL = 70454) CALC ALBUMIN/CREAT, RND (test 22 MG/G code = 65718) COMPREHENSIVE METABOLIC [id number] 00:00:00 Test Item Value Reference Range Interpretation Comments GLUCOSE (test code = 2217) 136 MG/DL BUN (test code = 2208) 11 MG/DL CREATININE (test code = 2214) 0.46 MG/DL eGFR AMER. (test code 145 ML/MIN/1.73 = 93699) eGFR NON- AMER. (test 125 ML/MIN/1.73 code = 73885) CALC BUN/CREAT (test code = 24 RATIO [...] code = 2219) 34 U/L COMPREHENSIVE METABOLIC [id number] 00:00:00 Test Item Value Reference Range Interpretation Comments GLUCOSE (test code = 2217) 136 MG/DL BUN (test code = 2208) 11 MG/DL CREATININE (test code = 2214) 0.46 MG/DL eGFR AMER. (test code 145 ML/MIN/1.73 = 19912) eGFR NON- AMER. (test 125 ML/MIN/1.73 code = 24949) CALC BUN/CREAT (test code = 24 RATIO 2235) SODIUM (test code = 2231) 137 MEQ/L POTASSIUM (test code = 2228) 4.4 MEQ/L CHLORIDE (test code = 2215) 100 MEQ/L CARBON DIOXIDE (test code = 24 MEQ/L 2206) CALCIUM (test code = 2209) 9.3 MG/DL PROTEIN, TOTAL (test code = 7.0 G/DL 2228) ALBUMIN (test code = 2201) 4.4 G/DL CALC GLOBULIN (test code = 2.6 G/DL 2240) CALC A/G RATIO (test code = 1.7 RATIO 2234) BILIRUBIN, TOTAL (test code = 0.3 MG/DL 220) ALKALINE PHOSPHATASE (test 73 U/L code = 2204) AST (test code = 2218) 21 U/L ALT (test code = 2219) 34 U/L LIPID [id number] 00:00:00 Test Item Value Reference Range Interpretation Comments CHOLESTEROL (test code = 2210) 194 MG/DL TRIGLYCERIDES (test code = 2232) 292 MG/DL HDL CHOLESTEROL (test code = 2220) 36 MG/DL CALC LDL CHOL (test code = 2237) 100 MG/DL RISK RATIO LDL/HDL (test code = 2.77 RATIO 2238) LIPID [id number] 00:00:00 Test Item Value Reference Range Interpretation Comments CHOLESTEROL (test code = 2210) 194 MG/DL TRIGLYCERIDES (test code = 2232) 292 MG/DL HDL CHOLESTEROL (test code = 2220) 36 MG/DL CALC LDL CHOL (test code = 2237) 100 MG/DL RISK RATIO LDL/HDL (test code = 2.77 RATIO 2238) CBC W/AUTO [id number] 00:00:00 Test Item Value Reference Range Interpretation [...] code = 1015) 268 K/UL CBC W/AUTO [id number] 00:00:00 Test Item Value Reference Range Interpretation [...] code = 1015) 268 K/UL CBC W/AUTO [id number] 00:00:00 Test Item Value Reference Range Interpretation [...] (test code = 1015) 268 K/UL HEMOGLOBIN [id number] 00:00:00 Test Item Value Reference Range Interpretation Comments HEMOGLOBIN A1c (test code = 28229) 6.5 % HEMOGLOBIN [id number] 00:00:00 Test Item Value Reference Range Interpretation Comments HEMOGLOBIN A1c (test code = 64005) 6.5 % HEMOGLOBIN [id number] 00:00:00 Test Item Value Reference Range Interpretation Comments HEMOGLOBIN A1c (test code = 50724) 6.5 % SEDIMENTATION [id number] 00:00:00 Test Item Value Reference Range Interpretation Comments SEDIMENTATION RATE (test code = 16 MM/HOUR 1017) SEDIMENTATION [id number] 00:00:00 Test Item Value Reference Range Interpretation Comments SEDIMENTATION RATE (test code = 16 MM/HOUR 1017) C-REACTIVE [id number] 00:00:00 Test Item Value Reference Range Interpretation Comments C-REACTIVE PROTEIN (test code = 0.5 MG/DL 3513) C-REACTIVE [id number] 00:00:00 Test Item Value Reference Range Interpretation Comments C-REACTIVE PROTEIN (test code = 0.5 MG/DL 3513) MICROALBUMIN/CREATININE, RANDOM AND [id number] 00:00:00 Test Item Value Reference Range Interpretation Comments CREATININE, URINE, CONC. (test 158.3 MG/DL code = 2072) ALBUMIN, URINE, RANDOM (test code 3.5 MG/DL = 98221) CALC ALBUMIN/CREAT, RND (test 22 MG/G code = 57842) MICROALBUMIN/CREATININE, RANDOM AND [id number] 00:00:00 Test Item Value Reference Range Interpretation Comments CREATININE, URINE, CONC. (test 158.3 MG/DL code = 2072) ALBUMIN, URINE, RANDOM (test code 3.5 MG/DL = 88628) CALC ALBUMIN/CREAT, RND (test 22 MG/G code = 04564) COMPREHENSIVE METABOLIC [id number] 00:00:00 Test Item Value Reference Range Interpretation Comments GLUCOSE (test code = 2217) 136 MG/DL BUN (test code = 2208) 11 MG/DL CREATININE (test code = 2214) 0.46 MG/DL eGFR AMER. (test code 145 ML/MIN/1.73 = 49208) eGFR NON- AMER. (test 125 ML/MIN/1.73 code = 40237) CALC BUN/CREAT (test code = 24 RATIO 2235) SODIUM (test code = 2231) 137 MEQ/L POTASSIUM (test code = 2228) 4.4 MEQ/L CHLORIDE (test code = 2215) 100 MEQ/L CARBON DIOXIDE (test code = 24 MEQ/L 2206) CALCIUM (test code = 2209) 9.3 MG/DL PROTEIN, TOTAL (test code = 7.0 G/DL 2228) ALBUMIN (test code = 2201) 4.4 G/DL CALC GLOBULIN (test code = 2.6 G/DL 2240) CALC A/G RATIO (test code = 1.7 RATIO 2234) BILIRUBIN, TOTAL (test code = 0.3 MG/DL 2207) ALKALINE PHOSPHATASE (test 73 U/L code = 2204) AST (test code = 2218) 21 U/L ALT (test code = 2219) 34 U/L COMPREHENSIVE METABOLIC [id number] 00:00:00 Test Item Value Reference Range Interpretation Comments GLUCOSE (test code = 2217) 136 MG/DL BUN (test code = 2208) 11 MG/DL CREATININE (test code = 2214) 0.46 MG/DL eGFR AMER. (test code 145 ML/MIN/1.73 = 03853) eGFR NON- AMER. (test 125 ML/MIN/1.73 code = 83475) CALC BUN/CREAT (test code = 24 RATIO 2235) SODIUM (test code = 2231) 137 MEQ/L POTASSIUM (test code = 2228) 4.4 MEQ/L CHLORIDE (test code = 2215) 100 MEQ/L CARBON DIOXIDE (test code = 24 MEQ/L 6) CALCIUM (test code = 2209) 9.3 MG/DL PROTEIN, TOTAL (test code = 7.0 G/DL 2229) ALBUMIN (test code = 2201) 4.4 G/DL CALC GLOBULIN (test code = 2.6 G/DL 2240) CALC A/G RATIO (test code = 1.7 RATIO 2234) BILIRUBIN, TOTAL (test code = 0.3 MG/DL 7) ALKALINE PHOSPHATASE (test 73 U/L code = 2204) AST (test code = 2218) 21 U/L ALT (test code = 2219) 34 U/L COMPREHENSIVE METABOLIC [id number] 00:00:00 Test Item Value Reference Range Interpretation Comments GLUCOSE (test code = 2217) 136 MG/DL BUN (test code = 2208) 11 MG/DL CREATININE (test code = 2214) 0.46 MG/DL eGFR AMER. (test code 145 ML/MIN/1.73 = 51386) eGFR NON- AMER. (test 125 ML/MIN/1.73 code = 54866) CALC BUN/CREAT (test code = 24 RATIO [...] code = 2219) 34 U/L COMPREHENSIVE METABOLIC [id number] 00:00:00 Test Item Value Reference Range Interpretation Comments GLUCOSE (test code = 2217) 136 MG/DL BUN (test code = 2208) 11 MG/DL CREATININE (test code = 2214) 0.46 MG/DL eGFR AMER. (test code 145 ML/MIN/1.73 = 84099) eGFR NON- AMER. (test 125 ML/MIN/1.73 code = 85196) CALC BUN/CREAT (test code = 24 RATIO [...] (test code = 2219) 34 U/L LIPID [id number] 00:00:00 Test Item Value Reference Range Interpretation Comments CHOLESTEROL (test code = 2210) 194 MG/DL TRIGLYCERIDES (test code = 2232) 292 MG/DL HDL CHOLESTEROL (test code = 2220) 36 MG/DL CALC LDL CHOL (test code = 2237) 100 MG/DL RISK RATIO LDL/HDL (test code = 2.77 RATIO 2238) LIPID [id number] 00:00:00 Test Item Value Reference Range Interpretation Comments CHOLESTEROL (test code = 2210) 194 MG/DL TRIGLYCERIDES (test code = 2232) 292 MG/DL HDL CHOLESTEROL (test code = 2220) 36 MG/DL CALC LDL CHOL (test code = 2237) 100 MG/DL RISK RATIO LDL/HDL (test code = 2.77 RATIO 2238) CBC W/AUTO [id number] 00:00:00 Test Item Value Reference Range Interpretation [...] code = 1015) 268 K/UL CBC W/AUTO [id number] 00:00:00 Test Item Value Reference Range Interpretation [...] code = 1015) 268 K/UL CBC W/AUTO [id number] 00:00:00 Test Item Value Reference Range Interpretation [...] (test code = 1015) 268 K/UL HEMOGLOBIN [id number] 00:00:00 Test Item Value Reference Range Interpretation Comments HEMOGLOBIN A1c (test code = 07981) 6.5 % HEMOGLOBIN [id number] 00:00:00 Test Item Value Reference Range Interpretation Comments HEMOGLOBIN A1c (test code = 42467) 6.5 % HEMOGLOBIN [id number] 00:00:00 Test Item Value Reference Range Interpretation Comments HEMOGLOBIN A1c (test code = 35606) 6.5 % SEDIMENTATION [id number] 00:00:00 Test Item Value Reference Range Interpretation Comments SEDIMENTATION RATE (test code = 16 MM/HOUR 1017) SEDIMENTATION [id number] 00:00:00 Test Item Value Reference Range Interpretation Comments SEDIMENTATION RATE (test code = 16 MM/HOUR 1017) C-REACTIVE [id number] 00:00:00 Test Item Value Reference Range Interpretation Comments C-REACTIVE PROTEIN (test code = 0.5 MG/DL 3513) C-REACTIVE [id number] 00:00:00 Test Item Value Reference Range Interpretation Comments C-REACTIVE PROTEIN (test code = 0.5 MG/DL 3513) MICROALBUMIN/CREATININE, RANDOM AND [id number] 00:00:00 Test Item Value Reference Range Interpretation Comments CREATININE, URINE, CONC. (test 158.3 MG/DL code = 2072) ALBUMIN, URINE, RANDOM (test code 3.5 MG/DL = 22517) CALC ALBUMIN/CREAT, RND (test 22 MG/G code = 58003) MICROALBUMIN/CREATININE, RANDOM AND [id number] 00:00:00 Test Item Value Reference Range Interpretation Comments CREATININE, URINE, CONC. (test 158.3 MG/DL code = 2072) ALBUMIN, URINE, RANDOM (test code 3.5 MG/DL = 33841) CALC ALBUMIN/CREAT, RND (test 22 MG/G code = 29724) LIPID [id number] 00:00:00 Test Item Value Reference Range Interpretation Comments CHOLESTEROL (test code = 2210) 194 MG/DL TRIGLYCERIDES (test code = 2232) 292 MG/DL HDL CHOLESTEROL (test code = 2220) 36 MG/DL CALC LDL CHOL (test code = 2237) 100 MG/DL RISK RATIO LDL/HDL (test code = 2.77 RATIO 2238) LIPID [id number] 00:00:00 Test Item Value Reference Range Interpretation Comments CHOLESTEROL (test code = 2210) 194 MG/DL TRIGLYCERIDES (test code = 2232) 292 MG/DL HDL CHOLESTEROL (test code = 2220) 36 MG/DL CALC LDL CHOL (test code = 2237) 100 MG/DL RISK RATIO LDL/HDL (test code = 2.77 RATIO 2238) CBC W/AUTO [id number] 00:00:00 Test Item Value Reference Range Interpretation [...] code = 1015) 268 K/UL CBC W/AUTO [id number] 00:00:00 Test Item Value Reference Range Interpretation [...] code = 1015) 268 K/UL CBC W/AUTO [id number] 00:00:00 Test Item Value Reference Range Interpretation [...] (test code = 1015) 268 K/UL HEMOGLOBIN [id number] 00:00:00 Test Item Value Reference Range Interpretation Comments HEMOGLOBIN A1c (test code = 73754) 6.5 % HEMOGLOBIN [id number] 00:00:00 Test Item Value Reference Range Interpretation Comments HEMOGLOBIN A1c (test code = 58498) 6.5 % HEMOGLOBIN [id number] 00:00:00 Test Item Value Reference Range Interpretation Comments HEMOGLOBIN A1c (test code = 10717) 6.5 % SEDIMENTATION [id number] 00:00:00 Test Item Value Reference Range Interpretation Comments SEDIMENTATION RATE (test code = 16 MM/HOUR 1017) SEDIMENTATION [id number] 00:00:00 Test Item Value Reference Range Interpretation Comments SEDIMENTATION RATE (test code = 16 MM/HOUR 1017) C-REACTIVE [id number] 00:00:00 Test Item Value Reference Range Interpretation Comments C-REACTIVE PROTEIN (test code = 0.5 MG/DL 3513) C-REACTIVE [id number] 00:00:00 Test Item Value Reference Range Interpretation Comments C-REACTIVE PROTEIN (test code = 0.5 MG/DL 3513) MICROALBUMIN/CREATININE, RANDOM AND [id number] 00:00:00 Test Item Value Reference Range Interpretation Comments CREATININE, URINE, CONC. (test 158.3 MG/DL code = 2072) ALBUMIN, URINE, RANDOM (test code 3.5 MG/DL = 87132) CALC ALBUMIN/CREAT, RND (test 22 MG/G code = 77499) MICROALBUMIN/CREATININE, RANDOM AND [id number] 00:00:00 Test Item Value Reference Range Interpretation Comments CREATININE, URINE, CONC. (test 158.3 MG/DL code = 2072) ALBUMIN, URINE, RANDOM (test code 3.5 MG/DL = 77528) CALC ALBUMIN/CREAT, RND (test 22 MG/G code = 34889) COMPREHENSIVE METABOLIC [id number] 00:00:00 Test Item Value Reference Range Interpretation Comments GLUCOSE (test code = 2217) 136 MG/DL BUN (test code = 2208) 11 MG/DL CREATININE (test code = 2214) 0.46 MG/DL eGFR AMER. (test code 145 ML/MIN/1.73 = 47037) eGFR NON- AMER. (test 125 ML/MIN/1.73 code = 73699) CALC BUN/CREAT (test code = 24 RATIO 2235) SODIUM (test code = 2231) 137 MEQ/L POTASSIUM (test code = 2228) 4.4 MEQ/L CHLORIDE (test code = 2215) 100 MEQ/L CARBON DIOXIDE (test code = 24 MEQ/L 2206) CALCIUM (test code = 2209) 9.3 MG/DL PROTEIN, TOTAL (test code = 7.0 G/DL 222) ALBUMIN (test code = 2201) 4.4 G/DL CALC GLOBULIN (test code = 2.6 G/DL 2240) CALC A/G RATIO (test code = 1.7 RATIO 2234) BILIRUBIN, TOTAL (test code = 0.3 MG/DL 220) ALKALINE PHOSPHATASE (test 73 U/L code = 2204) AST (test code = 2218) 21 U/L ALT (test code = 2219) 34 U/L COMPREHENSIVE METABOLIC [id number] 00:00:00 Test Item Value Reference Range Interpretation Comments GLUCOSE (test code = 2217) 136 MG/DL BUN (test code = 2208) 11 MG/DL CREATININE (test code = 2214) 0.46 MG/DL eGFR AMER. (test code 145 ML/MIN/1.73 = 75865) eGFR NON- AMER. (test 125 ML/MIN/1.73 code = 51135) CALC BUN/CREAT (test code = 24 RATIO [...] (test code = 2219) 34 U/L LIPID [id number] 00:00:00 Test Item Value Reference Range Interpretation Comments CHOLESTEROL (test code = 2210) 194 MG/DL TRIGLYCERIDES (test code = 2232) 292 MG/DL HDL CHOLESTEROL (test code = 2220) 36 MG/DL CALC LDL CHOL (test code = 2237) 100 MG/DL RISK RATIO LDL/HDL (test code = 2.77 RATIO 2238) LIPID [id number] 00:00:00 Test Item Value Reference Range Interpretation Comments CHOLESTEROL (test code = 2210) 194 MG/DL TRIGLYCERIDES (test code = 2232) 292 MG/DL HDL CHOLESTEROL (test code = 2220) 36 MG/DL CALC LDL CHOL (test code = 2237) 100 MG/DL RISK RATIO LDL/HDL (test code = 2.77 RATIO 2238) CBC W/AUTO [id number] 00:00:00 Test Item Value Reference Range Interpretation [...] code = 1015) 268 K/UL CBC W/AUTO [id number] 00:00:00 Test Item Value Reference Range Interpretation [...] code = 1015) 268 K/UL CBC W/AUTO [id number] 00:00:00 Test Item Value Reference Range Interpretation [...] (test code = 1015) 268 K/UL HEMOGLOBIN [id number] 00:00:00 Test Item Value Reference Range Interpretation Comments HEMOGLOBIN A1c (test code = 89210) 6.5 % HEMOGLOBIN [id number] 00:00:00 Test Item Value Reference Range Interpretation Comments HEMOGLOBIN A1c (test code = 01615) 6.5 % HEMOGLOBIN [id number] 00:00:00 Test Item Value Reference Range Interpretation Comments HEMOGLOBIN A1c (test code = 46300) 6.5 % SEDIMENTATION [id number] 00:00:00 Test Item Value Reference Range Interpretation Comments SEDIMENTATION RATE (test code = 16 MM/HOUR 1017) SEDIMENTATION [id number] 00:00:00 Test Item Value Reference Range Interpretation Comments SEDIMENTATION RATE (test code = 16 MM/HOUR 1017) C-REACTIVE [id number] 00:00:00 Test Item Value Reference Range Interpretation Comments C-REACTIVE PROTEIN (test code = 0.5 MG/DL 3513) C-REACTIVE [id number] 00:00:00 Test Item Value Reference Range Interpretation Comments C-REACTIVE PROTEIN (test code = 0.5 MG/DL 3513) MICROALBUMIN/CREATININE, RANDOM AND [id number] 00:00:00 Test Item Value Reference Range Interpretation Comments CREATININE, URINE, CONC. (test 158.3 MG/DL code = 2072) ALBUMIN, URINE, RANDOM (test code 3.5 MG/DL = 23066) CALC ALBUMIN/CREAT, RND (test 22 MG/G code = 72808) MICROALBUMIN/CREATININE, RANDOM AND [id number] 00:00:00 Test Item Value Reference Range Interpretation Comments CREATININE, URINE, CONC. (test 158.3 MG/DL code = 2072) ALBUMIN, URINE, RANDOM (test code 3.5 MG/DL = 55947) CALC ALBUMIN/CREAT, RND (test 22 MG/G code = 39670) COMPREHENSIVE METABOLIC [id number] 00:00:00 Test Item Value Reference Range Interpretation Comments GLUCOSE (test code = 2217) 136 MG/DL BUN (test code = 2208) 11 MG/DL CREATININE (test code = 2214) 0.46 MG/DL eGFR AMER. (test code 145 ML/MIN/1.73 = 16181) eGFR NON- AMER. (test 125 ML/MIN/1.73 code = 46934) CALC BUN/CREAT (test code = 24 RATIO 2235) SODIUM (test code = 2231) 137 MEQ/L POTASSIUM (test code = 2228) 4.4 MEQ/L CHLORIDE (test code = 2215) 100 MEQ/L CARBON DIOXIDE (test code = 24 MEQ/L 2206) CALCIUM (test code = 2209) 9.3 MG/DL [...] code = 2219) 34 U/L COMPREHENSIVE METABOLIC [id number] 00:00:00 Test Item Value Reference Range Interpretation Comments GLUCOSE (test code = 2217) 136 MG/DL BUN (test code = 2208) 11 MG/DL CREATININE (test code = 2214) 0.46 MG/DL eGFR AMER. (test code 145 ML/MIN/1.73 = 33874) eGFR NON- AMER. (test 125 ML/MIN/1.73 code = 18261) CALC BUN/CREAT (test code = 24 RATIO [...] CALC GLOBULIN (test code = 2.6 G/DL 224) CALC A/G RATIO (test code = 1.7 RATIO 2234) BILIRUBIN, TOTAL (test code = 0.3 MG/DL 2206) ALKALINE PHOSPHATASE (test 73 U/L code = 2204) AST (test code = 2218) 21 U/L ALT (test code = 2219) 34 U/L LIPID [id number] 00:00:00 Test Item Value Reference Range Interpretation Comments CHOLESTEROL (test code = 2210) 194 MG/DL TRIGLYCERIDES (test code = 2232) 292 MG/DL HDL CHOLESTEROL (test code = 2220) 36 MG/DL CALC LDL CHOL (test code = 2237) 100 MG/DL RISK RATIO LDL/HDL (test code = 2.77 RATIO 2238) LIPID [id number] 00:00:00 Test Item Value Reference Range Interpretation Comments CHOLESTEROL (test code = 2210) 194 MG/DL TRIGLYCERIDES (test code = 2232) 292 MG/DL HDL CHOLESTEROL (test code = 2220) 36 MG/DL CALC LDL CHOL (test code = 2237) 100 MG/DL RISK RATIO LDL/HDL (test code = 2.77 RATIO 2238) CBC W/AUTO [id number] 00:00:00 Test Item Value Reference Range Interpretation [...] code = 1015) 268 K/UL CBC W/AUTO [id number] 00:00:00 Test Item Value Reference Range Interpretation [...] code = 1015) 268 K/UL CBC W/AUTO [id number] 00:00:00 Test Item Value Reference Range Interpretation [...] (test code = 1015) 268 K/UL HEMOGLOBIN [id number] 00:00:00 Test Item Value Reference Range Interpretation Comments HEMOGLOBIN A1c (test code = 57276) 6.5 % HEMOGLOBIN [id number] 00:00:00 Test Item Value Reference Range Interpretation Comments HEMOGLOBIN A1c (test code = 36137) 6.5 % HEMOGLOBIN [id number] 00:00:00 Test Item Value Reference Range Interpretation Comments HEMOGLOBIN A1c (test code = 52903) 6.5 % SEDIMENTATION [id number] 00:00:00 Test Item Value Reference Range Interpretation Comments SEDIMENTATION RATE (test code = 16 MM/HOUR 1017) SEDIMENTATION [id number] 00:00:00 Test Item Value Reference Range Interpretation Comments SEDIMENTATION RATE (test code = 16 MM/HOUR 1017) C-REACTIVE [id number] 00:00:00 Test Item Value Reference Range Interpretation Comments C-REACTIVE PROTEIN (test code = 0.5 MG/DL 3513) C-REACTIVE [id number] 00:00:00 Test Item Value Reference Range Interpretation Comments C-REACTIVE PROTEIN (test code = 0.5 MG/DL 3513) MICROALBUMIN/CREATININE, RANDOM AND [id number] 00:00:00 Test Item Value Reference Range Interpretation Comments CREATININE, URINE, CONC. (test 158.3 MG/DL code = 2072) ALBUMIN, URINE, RANDOM (test code 3.5 MG/DL = 47910) CALC ALBUMIN/CREAT, RND (test 22 MG/G code = 12189) MICROALBUMIN/CREATININE, RANDOM AND [id number] 00:00:00 Test Item Value Reference Range Interpretation Comments CREATININE, URINE, CONC. (test 158.3 MG/DL code = 2072) ALBUMIN, URINE, RANDOM (test code 3.5 MG/DL = 33517) CALC ALBUMIN/CREAT, RND (test 22 MG/G code = 35397) COMPREHENSIVE METABOLIC [id number] 00:00:00 Test Item Value Reference Range Interpretation Comments GLUCOSE (test code = 2217) 136 MG/DL BUN (test code = 2208) 11 MG/DL CREATININE (test code = 2214) 0.46 MG/DL eGFR AMER. (test code 145 ML/MIN/1.73 = 48170) eGFR NON- AMER. (test 125 ML/MIN/1.73 code = 19034) CALC BUN/CREAT (test code = 24 RATIO [...] code = 2219) 34 U/L COMPREHENSIVE METABOLIC [id number] 00:00:00 Test Item Value Reference Range Interpretation Comments GLUCOSE (test code = 2217) 136 MG/DL BUN (test code = 2208) 11 MG/DL CREATININE (test code = 2214) 0.46 MG/DL eGFR AMER. (test code 145 ML/MIN/1.73 = 17308) eGFR NON- AMER. (test 125 ML/MIN/1.73 code = 49592) CALC BUN/CREAT (test code = 24 RATIO [...] (test code = 2219) 34 U/L LIPID [id number] 00:00:00 Test Item Value Reference Range Interpretation Comments CHOLESTEROL (test code = 2210) 194 MG/DL TRIGLYCERIDES (test code = 2232) 292 MG/DL HDL CHOLESTEROL (test code = 2220) 36 MG/DL CALC LDL CHOL (test code = 2237) 100 MG/DL RISK RATIO LDL/HDL (test code = 2.77 RATIO 2238) LIPID [id number] 00:00:00 Test Item Value Reference Range Interpretation Comments CHOLESTEROL (test code = 2210) 194 MG/DL TRIGLYCERIDES (test code = 2232) 292 MG/DL HDL CHOLESTEROL (test code = 2220) 36 MG/DL CALC LDL CHOL (test code = 2237) 100 MG/DL RISK RATIO LDL/HDL (test code = 2.77 RATIO 2238) CBC W/AUTO [id number] 00:00:00 Test Item Value Reference Range Interpretation [...] code = 1015) 268 K/UL CBC W/AUTO [id number] 00:00:00 Test Item Value Reference Range Interpretation [...] code = 1015) 268 K/UL CBC W/AUTO [id number] 00:00:00 Test Item Value Reference Range Interpretation [...] COUNT (test code = 1015) 268 K/UL C-REACTIVE [id number] 00:00:00 Test Item Value Reference Range Interpretation Comments C-REACTIVE PROTEIN (test code = 0.8 MG/DL 3513) LIZBETH (ANTI-NUCLEAR AB) WITH REFLEX [id number] 00:00:00 Test Item Value Reference Range Interpretation Comments ANTI-NUCLEAR ANTIBODIES (test code = NEGATIVE 3506) LIZBETH (ANTI-NUCLEAR AB) WITH REFLEX [id number] 00:00:00 Test Item Value Reference Range Interpretation Comments ANTI-NUCLEAR ANTIBODIES (test code = NEGATIVE 3506) RHEUMATOID FACTOR, [id number] 00:00:00 Test Item Value Reference Range Interpretation Comments RHEUMATOID FACTOR, QUANT (test code <10 IU/ML = 3502) RHEUMATOID FACTOR, [id number] 00:00:00 Test Item Value Reference Range Interpretation Comments RHEUMATOID FACTOR, QUANT (test code <10 IU/ML = 3502) RHEUMATOID FACTOR, [id number] 00:00:00 Test Item Value Reference Range Interpretation Comments RHEUMATOID FACTOR, QUANT (test code <10 IU/ML = 3502) CBC W/AUTO [id number] 00:00:00 Test Item Value Reference Range Interpretation [...] code = 1015) 258 K/UL CBC W/AUTO [id number] 00:00:00 Test Item Value Reference Range Interpretation [...] code = 1015) 258 K/UL CBC W/AUTO [id number] 00:00:00 Test Item Value Reference Range Interpretation [...] (test code = 1015) 258 K/UL SEDIMENTATION [id number] 00:00:00 Test Item Value Reference Range Interpretation Comments SEDIMENTATION RATE (test code = 37 MM/HOUR 1017) SEDIMENTATION [id number] 00:00:00 Test Item Value Reference Range Interpretation Comments SEDIMENTATION RATE (test code = 37 MM/HOUR 1017) C-REACTIVE [id number] 00:00:00 Test Item Value Reference Range Interpretation Comments C-REACTIVE PROTEIN (test code = 0.8 MG/DL 3513) C-REACTIVE [id number] 00:00:00 Test Item Value Reference Range Interpretation Comments C-REACTIVE PROTEIN (test code = 0.8 MG/DL 3513) LIZBETH (ANTI-NUCLEAR AB) WITH REFLEX [id number] 00:00:00 Test Item Value Reference Range Interpretation Comments ANTI-NUCLEAR ANTIBODIES (test code = NEGATIVE 3506) LIZBETH (ANTI-NUCLEAR AB) WITH REFLEX [id number] 00:00:00 Test Item Value Reference Range Interpretation Comments ANTI-NUCLEAR ANTIBODIES (test code = NEGATIVE 3506) RHEUMATOID FACTOR, [id number] 00:00:00 Test Item Value Reference Range Interpretation Comments RHEUMATOID FACTOR, QUANT (test code <10 IU/ML = 3502) RHEUMATOID FACTOR, [id number] 00:00:00 Test Item Value Reference Range Interpretation Comments RHEUMATOID FACTOR, QUANT (test code <10 IU/ML = 3502) RHEUMATOID FACTOR, [id number] 00:00:00 Test Item Value Reference Range Interpretation Comments RHEUMATOID FACTOR, QUANT (test code <10 IU/ML = 3502) CBC W/AUTO [id number] 00:00:00 Test Item Value Reference Range Interpretation [...] code = 1015) 258 K/UL CBC W/AUTO [id number] 00:00:00 Test Item Value Reference Range Interpretation [...] code = 1015) 258 K/UL CBC W/AUTO [id number] 00:00:00 Test Item Value Reference Range Interpretation [...] code = 1015) 258 K/UL CBC W/AUTO [id number] 00:00:00 Test Item Value Reference Range Interpretation [...] code = 1015) 258 K/UL CBC W/AUTO [id number] 00:00:00 Test Item Value Reference Range Interpretation [...] (test code = 1015) 258 K/UL SEDIMENTATION [id number] 00:00:00 Test Item Value Reference Range Interpretation Comments SEDIMENTATION RATE (test code = 37 MM/HOUR 1017) SEDIMENTATION [id number] 00:00:00 Test Item Value Reference Range Interpretation Comments SEDIMENTATION RATE (test code = 37 MM/HOUR 1017) C-REACTIVE [id number] 00:00:00 Test Item Value Reference Range Interpretation Comments C-REACTIVE PROTEIN (test code = 0.8 MG/DL 3513) C-REACTIVE [id number] 00:00:00 Test Item Value Reference Range Interpretation Comments C-REACTIVE PROTEIN (test code = 0.8 MG/DL 3513) LIZBETH (ANTI-NUCLEAR AB) WITH REFLEX [id number] 00:00:00 Test Item Value Reference Range Interpretation Comments ANTI-NUCLEAR ANTIBODIES (test code = NEGATIVE 3506) LIZBETH (ANTI-NUCLEAR AB) WITH REFLEX [id number] 00:00:00 Test Item Value Reference Range Interpretation Comments ANTI-NUCLEAR ANTIBODIES (test code = NEGATIVE 3506) RHEUMATOID FACTOR, [id number] 00:00:00 Test Item Value Reference Range Interpretation Comments RHEUMATOID FACTOR, QUANT (test code <10 IU/ML = 3502) RHEUMATOID FACTOR, [id number] 00:00:00 Test Item Value Reference Range Interpretation Comments RHEUMATOID FACTOR, QUANT (test code <10 IU/ML = 3502) RHEUMATOID FACTOR, [id number] 00:00:00 Test Item Value Reference Range Interpretation Comments RHEUMATOID FACTOR, QUANT (test code <10 IU/ML = 3502) CBC W/AUTO [id number] 00:00:00 Test Item Value Reference Range Interpretation [...] (test code = 1015) 258 K/UL SEDIMENTATION [id number] 00:00:00 Test Item Value Reference Range Interpretation Comments SEDIMENTATION RATE (test code = 37 MM/HOUR 1017) SEDIMENTATION [id number] 00:00:00 Test Item Value Reference Range Interpretation Comments SEDIMENTATION RATE (test code = 37 MM/HOUR 1017) C-REACTIVE [id number] 00:00:00 Test Item Value Reference Range Interpretation Comments C-REACTIVE PROTEIN (test code = 0.8 MG/DL 3513) C-REACTIVE [id number] 00:00:00 Test Item Value Reference Range Interpretation Comments C-REACTIVE PROTEIN (test code = 0.8 MG/DL 3513) LIZBETH (ANTI-NUCLEAR AB) WITH REFLEX [id number] 00:00:00 Test Item Value Reference Range Interpretation Comments ANTI-NUCLEAR ANTIBODIES (test code = NEGATIVE 3506) LIZBETH (ANTI-NUCLEAR AB) WITH REFLEX [id number] 00:00:00 Test Item Value Reference Range Interpretation Comments ANTI-NUCLEAR ANTIBODIES (test code = NEGATIVE 3506) RHEUMATOID FACTOR, [id number] 00:00:00 Test Item Value Reference Range Interpretation Comments RHEUMATOID FACTOR, QUANT (test code <10 IU/ML = 3502) RHEUMATOID FACTOR, [id number] 00:00:00 Test Item Value Reference Range Interpretation Comments RHEUMATOID FACTOR, QUANT (test code <10 IU/ML = 3502) RHEUMATOID FACTOR, [id number] 00:00:00 Test Item Value Reference Range Interpretation Comments RHEUMATOID FACTOR, QUANT (test code <10 IU/ML = 3502) CBC W/AUTO [id number] 00:00:00 Test Item Value Reference Range Interpretation [...] code = 1015) 258 K/UL CBC W/AUTO [id number] 00:00:00 Test Item Value Reference Range Interpretation [...] code = 1015) 258 K/UL CBC W/AUTO [id number] 00:00:00 Test Item Value Reference Range Interpretation [...] (test code = 1015) 258 K/UL SEDIMENTATION [id number] 00:00:00 Test Item Value Reference Range Interpretation Comments SEDIMENTATION RATE (test code = 37 MM/HOUR 1017) SEDIMENTATION [id number] 00:00:00 Test Item Value Reference Range Interpretation Comments SEDIMENTATION RATE (test code = 37 MM/HOUR 1017) C-REACTIVE [id number] 00:00:00 Test Item Value Reference Range Interpretation Comments C-REACTIVE PROTEIN (test code = 0.8 MG/DL 3513) C-REACTIVE [id number] 00:00:00 Test Item Value Reference Range Interpretation Comments C-REACTIVE PROTEIN (test code = 0.8 MG/DL 3513) LIZBETH (ANTI-NUCLEAR AB) WITH REFLEX [id number] 00:00:00 Test Item Value Reference Range Interpretation Comments ANTI-NUCLEAR ANTIBODIES (test code = NEGATIVE 3506) LIZBETH (ANTI-NUCLEAR AB) WITH REFLEX [id number] 00:00:00 Test Item Value Reference Range Interpretation Comments ANTI-NUCLEAR ANTIBODIES (test code = NEGATIVE 3506) RHEUMATOID FACTOR, [id number] 00:00:00 Test Item Value Reference Range Interpretation Comments RHEUMATOID FACTOR, QUANT (test code <10 IU/ML = 3502) RHEUMATOID FACTOR, [id number] 00:00:00 Test Item Value Reference Range Interpretation Comments RHEUMATOID FACTOR, QUANT (test code <10 IU/ML = 3502) RHEUMATOID FACTOR, [id number] 00:00:00 Test Item Value Reference Range Interpretation Comments RHEUMATOID FACTOR, QUANT (test code <10 IU/ML = 3502) CBC W/AUTO [id number] 00:00:00 Test Item Value Reference Range Interpretation [...] code = 1015) 258 K/UL CBC W/AUTO [id number] 00:00:00 Test Item Value Reference Range Interpretation [...] code = 1015) 258 K/UL CBC W/AUTO [id number] 00:00:00 Test Item Value Reference Range Interpretation [...] (test code = 1015) 258 K/UL SEDIMENTATION [id number] 00:00:00 Test Item Value Reference Range Interpretation Comments SEDIMENTATION RATE (test code = 37 MM/HOUR 1017) SEDIMENTATION [id number] 00:00:00 Test Item Value Reference Range Interpretation Comments SEDIMENTATION RATE (test code = 37 MM/HOUR 1017) C-REACTIVE [id number] 00:00:00 Test Item Value Reference Range Interpretation Comments C-REACTIVE PROTEIN (test code = 0.8 MG/DL 3513) C-REACTIVE [id number] 00:00:00 Test Item Value Reference Range Interpretation Comments C-REACTIVE PROTEIN (test code = 0.8 MG/DL 3513) LIZBETH (ANTI-NUCLEAR AB) WITH REFLEX [id number] 00:00:00 Test Item Value Reference Range Interpretation Comments ANTI-NUCLEAR ANTIBODIES (test code = NEGATIVE 3506) LIZBETH (ANTI-NUCLEAR AB) WITH REFLEX [id number] 00:00:00 Test Item Value Reference Range Interpretation Comments ANTI-NUCLEAR ANTIBODIES (test code = NEGATIVE 3506) RHEUMATOID FACTOR, [id number] 00:00:00 Test Item Value Reference Range Interpretation Comments RHEUMATOID FACTOR, QUANT (test code <10 IU/ML = 3502) RHEUMATOID FACTOR, [id number] 00:00:00 Test Item Value Reference Range Interpretation Comments RHEUMATOID FACTOR, QUANT (test code <10 IU/ML = 3502) RHEUMATOID FACTOR, [id number] 00:00:00 Test Item Value Reference Range Interpretation Comments RHEUMATOID FACTOR, QUANT (test code <10 IU/ML = 3502) CBC W/AUTO [id number] 00:00:00 Test Item Value Reference Range Interpretation [...] code = 1015) 258 K/UL CBC W/AUTO [id number] 00:00:00 Test Item Value Reference Range Interpretation [...] code = 1015) 258 K/UL CBC W/AUTO [id number] 00:00:00 Test Item Value Reference Range Interpretation [...] (test code = 1015) 258 K/UL SEDIMENTATION [id number] 00:00:00 Test Item Value Reference Range Interpretation Comments SEDIMENTATION RATE (test code = 37 MM/HOUR 1017) SEDIMENTATION [id number] 00:00:00 Test Item Value Reference Range Interpretation Comments SEDIMENTATION RATE (test code = 37 MM/HOUR 1017) C-REACTIVE [id number] 00:00:00 Test Item Value Reference Range Interpretation Comments C-REACTIVE PROTEIN (test code = 0.8 MG/DL 3513) HEMOGLOBIN [id number] 00:00:00 Test Item Value Reference Range Interpretation Comments HEMOGLOBIN A1c (test code = 95588) 10.0 % HEMOGLOBIN [id number] 00:00:00 Test Item Value Reference Range Interpretation Comments HEMOGLOBIN A1c (test code = 87035) 10.0 % HEMOGLOBIN [id number] 00:00:00 Test Item Value Reference Range Interpretation Comments HEMOGLOBIN A1c (test code = 97853) 10.0 % HEMOGLOBIN [id number] 00:00:00 Test Item Value Reference Range Interpretation Comments HEMOGLOBIN A1c (test code = 45444) 10.0 % HEMOGLOBIN [id number] 00:00:00 Test Item Value Reference Range Interpretation Comments HEMOGLOBIN A1c (test code = 05598) 10.0 % HEMOGLOBIN [id number] 00:00:00 Test Item Value Reference Range Interpretation Comments HEMOGLOBIN A1c (test code = 36470) 10.0 % HEMOGLOBIN [id number] 00:00:00 Test Item Value Reference Range Interpretation Comments HEMOGLOBIN A1c (test code = 62089) 10.0 % HEMOGLOBIN [id number] 00:00:00 Test Item Value Reference Range Interpretation Comments HEMOGLOBIN A1c (test code = 64710) 10.0 % HEMOGLOBIN [id number] 00:00:00 Test Item Value Reference Range Interpretation Comments HEMOGLOBIN A1c (test code = 29021) 10.0 % HEMOGLOBIN [id number] 00:00:00 Test Item Value Reference Range Interpretation Comments HEMOGLOBIN A1c (test code = 48407) 10.0 % HEMOGLOBIN [id number] 00:00:00 Test Item Value Reference Range Interpretation Comments HEMOGLOBIN A1c (test code = 47433) 10.0 % HEMOGLOBIN [id number] 00:00:00 Test Item Value Reference Range Interpretation Comments HEMOGLOBIN A1c (test code = 06414) 10.0 % HEMOGLOBIN [id number] 00:00:00 Test Item Value Reference Range Interpretation Comments HEMOGLOBIN A1c (test code = 89227) 10.0 % HEMOGLOBIN [id number] 00:00:00 Test Item Value Reference Range Interpretation Comments HEMOGLOBIN A1c (test code = 64607) 10.0 % HEMOGLOBIN [id number] 00:00:00 Test Item Value Reference Range Interpretation Comments HEMOGLOBIN A1c (test code = 50820) 10.0 % HEMOGLOBIN [id number] 00:00:00 Test Item Value Reference Range Interpretation Comments HEMOGLOBIN A1c (test code = 43827) 10.0 % HEMOGLOBIN [id number] 00:00:00 Test Item Value Reference Range Interpretation Comments HEMOGLOBIN A1c (test code = 13836) 10.0 % HEMOGLOBIN [id number] 00:00:00 Test Item Value Reference Range Interpretation Comments HEMOGLOBIN A1c (test code = 94676) 10.0 % LIPID [id number] 00:00:00 Test Item Value Reference Range Interpretation Comments CHOLESTEROL (test code = 2210) 231 MG/DL TRIGLYCERIDES (test code = 2232) 324 MG/DL HDL CHOLESTEROL (test code = 2220) 43 MG/DL CALC LDL CHOL (test code = 2237) 123 MG/DL RISK RATIO LDL/HDL (test code = 2.87 RATIO 2238) LIPID [id number] 00:00:00 Test Item Value Reference Range Interpretation Comments CHOLESTEROL (test code = 2210) 231 MG/DL TRIGLYCERIDES (test code = 2232) 324 MG/DL HDL CHOLESTEROL (test code = 2220) 43 MG/DL CALC LDL CHOL (test code = 2237) 123 MG/DL RISK RATIO LDL/HDL (test code = 2.87 RATIO 2238) COMPREHENSIVE METABOLIC [id number] 00:00:00 Test Item Value Reference Range Interpretation Comments GLUCOSE (test code = 2217) 282 MG/DL BUN (test code = 2208) 8 MG/DL CREATININE (test code = 2214) 0.44 MG/DL eGFR AMER. (test code 148 ML/MIN/1.73 = 90668) eGFR NON- AMER. (test 128 ML/MIN/1.73 code = 13221) CALC BUN/CREAT (test code = 18 RATIO 2235) SODIUM (test code = 2231) 135 MEQ/L POTASSIUM (test code = 2228) 4.0 MEQ/L CHLORIDE (test code = 2215) 98 MEQ/L CARBON DIOXIDE (test code = 24 MEQ/L 6) CALCIUM (test code = 2209) 9.7 MG/DL [...] code = 2219) 14 U/L COMPREHENSIVE METABOLIC [id number] 00:00:00 Test Item Value Reference Range Interpretation Comments GLUCOSE (test code = 2217) 282 MG/DL BUN (test code = 2208) 8 MG/DL CREATININE (test code = 2214) 0.44 MG/DL eGFR AMER. (test code 148 ML/MIN/1.73 = 10393) eGFR NON- AMER. (test 128 ML/MIN/1.73 code = 83243) CALC BUN/CREAT (test code = 18 RATIO 2235) SODIUM (test code = 2231) 135 MEQ/L POTASSIUM (test code = 2228) 4.0 MEQ/L CHLORIDE (test code = 2215) 98 MEQ/L CARBON DIOXIDE (test code = 24 MEQ/L 2205) CALCIUM (test code = 2209) 9.7 MG/DL PROTEIN, TOTAL (test code = 7.4 G/DL 2228) ALBUMIN (test code = 220) 4.5 G/DL CALC GLOBULIN (test code = 2.9 G/DL 2239) CALC A/G RATIO (test code = 1.6 RATIO 2233) BILIRUBIN, TOTAL (test code = 0.6 MG/DL 2206) ALKALINE PHOSPHATASE (test 86 U/L code = 2204) AST (test code = 221) 15 U/L ALT (test code = 2219) 14 U/L HEMOGLOBIN [id number] 00:00:00 Test Item Value Reference Range Interpretation Comments HEMOGLOBIN A1c (test code = 19483) 13.1 % HEMOGLOBIN [id number] 00:00:00 Test Item Value Reference Range Interpretation Comments HEMOGLOBIN A1c (test code = 44512) 13.1 % HEMOGLOBIN [id number] 00:00:00 Test Item Value Reference Range Interpretation Comments HEMOGLOBIN A1c (test code = 71495) 13.1 % LIPID [id number] 00:00:00 Test Item Value Reference Range Interpretation Comments CHOLESTEROL (test code = 2210) 231 MG/DL TRIGLYCERIDES (test code = 2232) 324 MG/DL HDL CHOLESTEROL (test code = 2220) 43 MG/DL CALC LDL CHOL (test code = 2237) 123 MG/DL RISK RATIO LDL/HDL (test code = 2.87 RATIO 2238) LIPID [id number] 00:00:00 Test Item Value Reference Range Interpretation Comments CHOLESTEROL (test code = 2210) 231 MG/DL TRIGLYCERIDES (test code = 2232) 324 MG/DL HDL CHOLESTEROL (test code = 2220) 43 MG/DL CALC LDL CHOL (test code = 2237) 123 MG/DL RISK RATIO LDL/HDL (test code = 2.87 RATIO 2238) LIPID [id number] 00:00:00 Test Item Value Reference Range Interpretation Comments CHOLESTEROL (test code = 2210) 231 MG/DL TRIGLYCERIDES (test code = 2232) 324 MG/DL HDL CHOLESTEROL (test code = 2220) 43 MG/DL CALC LDL CHOL (test code = 2237) 123 MG/DL RISK RATIO LDL/HDL (test code = 2.87 RATIO 2238) COMPREHENSIVE METABOLIC [id number] 00:00:00 Test Item Value Reference Range Interpretation Comments GLUCOSE (test code = 2217) 282 MG/DL BUN (test code = 2208) 8 MG/DL CREATININE (test code = 2214) 0.44 MG/DL eGFR AMER. (test code 148 ML/MIN/1.73 = 69284) eGFR NON- AMER. (test 128 ML/MIN/1.73 code = 65796) CALC BUN/CREAT (test code = 18 RATIO [...] RATIO 4) BILIRUBIN, TOTAL (test code = 0.6 MG/DL 2206) ALKALINE PHOSPHATASE (test 86 U/L code = 2204) AST (test code = 2218) 15 U/L ALT (test code = 2219) 14 U/L LIPID [id number] 00:00:00 Test Item Value Reference Range Interpretation Comments CHOLESTEROL (test code = 2210) 231 MG/DL TRIGLYCERIDES (test code = 2232) 324 MG/DL HDL CHOLESTEROL (test code = 2220) 43 MG/DL CALC LDL CHOL (test code = 2237) 123 MG/DL RISK RATIO LDL/HDL (test code = 2.87 RATIO 2238) COMPREHENSIVE METABOLIC [id number] 00:00:00 Test Item Value Reference Range Interpretation Comments GLUCOSE (test code = 2217) 282 MG/DL BUN (test code = 2208) 8 MG/DL CREATININE (test code = 2214) 0.44 MG/DL eGFR AMER. (test code 148 ML/MIN/1.73 = 39852) eGFR NON- AMER. (test 128 ML/MIN/1.73 code = 99304) CALC BUN/CREAT (test code = 18 RATIO 2235) SODIUM (test code = 2231) 135 MEQ/L POTASSIUM (test code = 2228) 4.0 MEQ/L CHLORIDE (test code = 2215) 98 MEQ/L CARBON DIOXIDE (test code = 24 MEQ/L 2205) CALCIUM (test code = 2209) 9.7 MG/DL PROTEIN, TOTAL (test code = 7.4 G/DL 2228) ALBUMIN (test code = 220) 4.5 G/DL CALC GLOBULIN (test code = 2.9 G/DL 2239) CALC A/G RATIO (test code = 1.6 RATIO 2233) BILIRUBIN, TOTAL (test code = 0.6 MG/DL 2206) ALKALINE PHOSPHATASE (test 86 U/L code = 2204) AST (test code = 2218) 15 U/L ALT (test code = 2219) 14 U/L HEMOGLOBIN [id number] 00:00:00 Test Item Value Reference Range Interpretation Comments HEMOGLOBIN A1c (test code = 62483) 13.1 % HEMOGLOBIN [id number] 00:00:00 Test Item Value Reference Range Interpretation Comments HEMOGLOBIN A1c (test code = 66254) 13.1 % HEMOGLOBIN [id number] 00:00:00 Test Item Value Reference Range Interpretation Comments HEMOGLOBIN A1c (test code = 60243) 13.1 % COMPREHENSIVE METABOLIC [id number] 00:00:00 Test Item Value Reference Range Interpretation Comments GLUCOSE (test code = 2217) 282 MG/DL BUN (test code = 2208) 8 MG/DL CREATININE (test code = 2214) 0.44 MG/DL eGFR AMER. (test code 148 ML/MIN/1.73 = 74179) eGFR NON- AMER. (test 128 ML/MIN/1.73 code = 50429) CALC BUN/CREAT (test code = 18 RATIO [...] code = 2219) 14 U/L COMPREHENSIVE METABOLIC [id number] 00:00:00 Test Item Value Reference Range Interpretation Comments GLUCOSE (test code = 2217) 282 MG/DL BUN (test code = 2208) 8 MG/DL CREATININE (test code = 2214) 0.44 MG/DL eGFR AMER. (test code 148 ML/MIN/1.73 = 13032) eGFR NON- AMER. (test 128 ML/MIN/1.73 code = 61408) CALC BUN/CREAT (test code = 18 RATIO 2235) SODIUM (test code = 2231) 135 MEQ/L POTASSIUM (test code = 2228) 4.0 MEQ/L CHLORIDE (test code = 2215) 98 MEQ/L CARBON DIOXIDE (test code = 24 MEQ/L 2205) CALCIUM (test code = 2209) 9.7 MG/DL PROTEIN, TOTAL (test code = 7.4 G/DL 2229) ALBUMIN (test code = 2201) 4.5 G/DL CALC GLOBULIN (test code = 2.9 G/DL 2240) CALC A/G RATIO (test code = 1.6 RATIO 2234) BILIRUBIN, TOTAL (test code = 0.6 MG/DL 2207) ALKALINE PHOSPHATASE (test 86 U/L code = 2204) AST (test code = 2218) 15 U/L ALT (test code = 2219) 14 U/L HEMOGLOBIN [id number] 00:00:00 Test Item Value Reference Range Interpretation Comments HEMOGLOBIN A1c (test code = 28311) 13.1 % HEMOGLOBIN [id number] 00:00:00 Test Item Value Reference Range Interpretation Comments HEMOGLOBIN A1c (test code = 27330) 13.1 % HEMOGLOBIN [id number] 00:00:00 Test Item Value Reference Range Interpretation Comments HEMOGLOBIN A1c (test code = 12309) 13.1 % LIPID [id number] 00:00:00 Test Item Value Reference Range Interpretation Comments CHOLESTEROL (test code = 2210) 231 MG/DL TRIGLYCERIDES (test code = 2232) 324 MG/DL HDL CHOLESTEROL (test code = 2220) 43 MG/DL CALC LDL CHOL (test code = 2237) 123 MG/DL RISK RATIO LDL/HDL (test code = 2.87 RATIO 2238) LIPID [id number] 00:00:00 Test Item Value Reference Range Interpretation Comments CHOLESTEROL (test code = 2210) 231 MG/DL TRIGLYCERIDES (test code = 2232) 324 MG/DL HDL CHOLESTEROL (test code = 2220) 43 MG/DL CALC LDL CHOL (test code = 2237) 123 MG/DL RISK RATIO LDL/HDL (test code = 2.87 RATIO 2238) COMPREHENSIVE METABOLIC [id number] 00:00:00 Test Item Value Reference Range Interpretation Comments GLUCOSE (test code = 2217) 282 MG/DL BUN (test code = 2208) 8 MG/DL CREATININE (test code = 2214) 0.44 MG/DL eGFR AMER. (test code 148 ML/MIN/1.73 = 34223) eGFR NON- AMER. (test 128 ML/MIN/1.73 code = 02215) CALC BUN/CREAT (test code = 18 RATIO [...] A/G RATIO (test code = 1.6 RATIO 223) BILIRUBIN, TOTAL (test code = 0.6 MG/DL 2206) ALKALINE PHOSPHATASE (test 86 U/L code = 2204) AST (test code = 2218) 15 U/L ALT (test code = 2219) 14 U/L COMPREHENSIVE METABOLIC [id number] 00:00:00 Test Item Value Reference Range Interpretation Comments GLUCOSE (test code = 2217) 282 MG/DL BUN (test code = 2208) 8 MG/DL CREATININE (test code = 2214) 0.44 MG/DL eGFR AMER. (test code 148 ML/MIN/1.73 = 41960) eGFR NON- AMER. (test 128 ML/MIN/1.73 code = 97363) CALC BUN/CREAT (test code = 18 RATIO [...] A/G RATIO (test code = 1.6 RATIO 2233) BILIRUBIN, TOTAL (test code = 0.6 MG/DL 2206) ALKALINE PHOSPHATASE (test 86 U/L code = 2204) AST (test code = 2218) 15 U/L ALT (test code = 2219) 14 U/L HEMOGLOBIN [id number] 00:00:00 Test Item Value Reference Range Interpretation Comments HEMOGLOBIN A1c (test code = 82430) 13.1 % HEMOGLOBIN [id number] 00:00:00 Test Item Value Reference Range Interpretation Comments HEMOGLOBIN A1c (test code = 09071) 13.1 % HEMOGLOBIN [id number] 00:00:00 Test Item Value Reference Range Interpretation Comments HEMOGLOBIN A1c (test code = 41610) 13.1 % LIPID [id number] 00:00:00 Test Item Value Reference Range Interpretation Comments CHOLESTEROL (test code = 2210) 231 MG/DL TRIGLYCERIDES (test code = 2232) 324 MG/DL HDL CHOLESTEROL (test code = 2220) 43 MG/DL CALC LDL CHOL (test code = 2237) 123 MG/DL RISK RATIO LDL/HDL (test code = 2.87 RATIO 2238) LIPID [id number] 00:00:00 Test Item Value Reference Range Interpretation Comments CHOLESTEROL (test code = 2210) 231 MG/DL TRIGLYCERIDES (test code = 2232) 324 MG/DL HDL CHOLESTEROL (test code = 2220) 43 MG/DL CALC LDL CHOL (test code = 2237) 123 MG/DL RISK RATIO LDL/HDL (test code = 2.87 RATIO 2238) COMPREHENSIVE METABOLIC [id number] 00:00:00 Test Item Value Reference Range Interpretation Comments GLUCOSE (test code = 2217) 282 MG/DL BUN (test code = 2208) 8 MG/DL CREATININE (test code = 2214) 0.44 MG/DL eGFR AMER. (test code 148 ML/MIN/1.73 = 49712) eGFR NON- AMER. (test 128 ML/MIN/1.73 code = 91339) CALC BUN/CREAT (test code = 18 RATIO [...] CALC GLOBULIN (test code = 2.9 G/DL 0) CALC A/G RATIO (test code = 1.6 RATIO 2233) BILIRUBIN, TOTAL (test code = 0.6 MG/DL 2206) ALKALINE PHOSPHATASE (test 86 U/L code = 2204) AST (test code = 2218) 15 U/L ALT (test code = 2219) 14 U/L COMPREHENSIVE METABOLIC [id number] 00:00:00 Test Item Value Reference Range Interpretation Comments GLUCOSE (test code = 2217) 282 MG/DL BUN (test code = 2208) 8 MG/DL CREATININE (test code = 2214) 0.44 MG/DL eGFR AMER. (test code 148 ML/MIN/1.73 = 93083) eGFR NON- AMER. (test 128 ML/MIN/1.73 code = 25486) CALC BUN/CREAT (test code = 18 RATIO [...] (test code = 2219) 14 U/L HEMOGLOBIN [id number] 00:00:00 Test Item Value Reference Range Interpretation Comments HEMOGLOBIN A1c (test code = 10385) 13.1 % HEMOGLOBIN [id number] 00:00:00 Test Item Value Reference Range Interpretation Comments HEMOGLOBIN A1c (test code = 53635) 13.1 % HEMOGLOBIN [id number] 00:00:00 Test Item Value Reference Range Interpretation Comments HEMOGLOBIN A1c (test code = 05627) 13.1 % LIPID [id number] 00:00:00 Test Item Value Reference Range Interpretation Comments CHOLESTEROL (test code = 2210) 231 MG/DL TRIGLYCERIDES (test code = 2232) 324 MG/DL HDL CHOLESTEROL (test code = 2220) 43 MG/DL CALC LDL CHOL (test code = 2237) 123 MG/DL RISK RATIO LDL/HDL (test code = 2.87 RATIO 2238) LIPID [id number] 00:00:00 Test Item Value Reference Range Interpretation Comments CHOLESTEROL (test code = 2210) 231 MG/DL TRIGLYCERIDES (test code = 2232) 324 MG/DL HDL CHOLESTEROL (test code = 2220) 43 MG/DL CALC LDL CHOL (test code = 2237) 123 MG/DL RISK RATIO LDL/HDL (test code = 2.87 RATIO 2238) COMPREHENSIVE METABOLIC [id number] 00:00:00 Test Item Value Reference Range Interpretation Comments GLUCOSE (test code = 2217) 282 MG/DL BUN (test code = 2208) 8 MG/DL CREATININE (test code = 2214) 0.44 MG/DL eGFR AMER. (test code 148 ML/MIN/1.73 = 18191) eGFR NON- AMER. (test 128 ML/MIN/1.73 code = 07477) CALC BUN/CREAT (test code = 18 RATIO [...] code = 2219) 14 U/L COMPREHENSIVE METABOLIC [id number] 00:00:00 Test Item Value Reference Range Interpretation Comments GLUCOSE (test code = 2217) 282 MG/DL BUN (test code = 2208) 8 MG/DL CREATININE (test code = 2214) 0.44 MG/DL eGFR AMER. (test code 148 ML/MIN/1.73 = 65430) eGFR NON- AMER. (test 128 ML/MIN/1.73 code = 83345) CALC BUN/CREAT (test code = 18 RATIO [...] (test code = 2219) 14 U/L HEMOGLOBIN [id number] 00:00:00 Test Item Value Reference Range Interpretation Comments HEMOGLOBIN A1c (test code = 35334) 13.1 % HEMOGLOBIN [id number] 00:00:00 Test Item Value Reference Range Interpretation Comments HEMOGLOBIN A1c (test code = 93706) 13.1 % HEMOGLOBIN [id number] 00:00:00 Test Item Value Reference Range Interpretation Comments HEMOGLOBIN A1c (test code = 75572) 13.1 % CBC W/AUTO [id number] 00:00:00 Test Item Value Reference Range Interpretation [...] code = 1015) 241 K/UL CBC W/AUTO [id number] 00:00:00 Test Item Value Reference Range Interpretation [...] (test code = 1015) 241 K/UL HEMOGLOBIN [id number] 00:00:00 Test Item Value Reference Range Interpretation Comments HEMOGLOBIN A1c (test code = 13042) 14.8 % HEMOGLOBIN [id number] 00:00:00 Test Item Value Reference Range Interpretation Comments HEMOGLOBIN A1c (test code = 79310) 14.8 % HEMOGLOBIN [id number] 00:00:00 Test Item Value Reference Range Interpretation Comments HEMOGLOBIN A1c (test code = 69618) 14.8 % COMPREHENSIVE METABOLIC [id number] 00:00:00 Test Item Value Reference Range Interpretation Comments GLUCOSE (test code = 2217) 451 MG/DL BUN (test code = 2208) 9 MG/DL CREATININE (test code = 2214) 0.51 MG/DL eGFR AMER. (test code 141 ML/MIN/1.73 = 05338) eGFR NON- AMER. (test 122 ML/MIN/1.73 code = 72333) CALC BUN/CREAT (test code = 18 RATIO 2235) SODIUM (test code = 2231) 130 MEQ/L POTASSIUM (test code = 2228) 3.9 MEQ/L CHLORIDE (test code = 2215) 92 MEQ/L CARBON DIOXIDE (test code = 27 MEQ/L 2206) CALCIUM (test code = 2209) [...] (test code = 2219) 19 U/L MICROALBUMIN, [id number] 00:00:00 Test Item Value Reference Range Interpretation Comments MICROALBUMIN, RANDOM (test code = 0.3 MG/DL 74486) MICROALBUMIN, [id number] 00:00:00 Test Item Value Reference Range Interpretation Comments MICROALBUMIN, RANDOM (test code = 0.3 MG/DL 61082) COMPREHENSIVE METABOLIC [id number] 00:00:00 Test Item Value Reference Range Interpretation Comments GLUCOSE (test code = 2217) 451 MG/DL BUN (test code = 2208) 9 MG/DL CREATININE (test code = 2214) 0.51 MG/DL eGFR AMER. (test code 141 ML/MIN/1.73 = 29647) eGFR NON- AMER. (test 122 ML/MIN/1.73 code = 17169) CALC BUN/CREAT (test code = 18 RATIO 2235) SODIUM (test code = 2231) 130 MEQ/L POTASSIUM (test code = 2228) 3.9 MEQ/L CHLORIDE (test code = 2215) 92 MEQ/L CARBON DIOXIDE (test code = 27 MEQ/L 2205) CALCIUM (test code = 2209) 9.6 MG/DL PROTEIN, TOTAL (test code = 7.2 G/DL 2228) ALBUMIN (test code = 2201) 4.3 G/DL CALC GLOBULIN (test code = 2.9 G/DL 2239) CALC A/G RATIO (test code = 1.5 RATIO 2233) BILIRUBIN, TOTAL (test code = 0.4 MG/DL 2206) ALKALINE PHOSPHATASE (test 108 U/L code = 2204) AST (test code = 2218) 14 U/L ALT (test code = 2219) 19 U/L LIPID [id number] 00:00:00 Test Item Value Reference Range Interpretation Comments CHOLESTEROL (test code = 2210) 218 MG/DL TRIGLYCERIDES (test code = 2232) 414 MG/DL HDL CHOLESTEROL (test code = 36 MG/DL 2220) CALC LDL CHOL (test code = 2237) NOTE MG/DL RISK RATIO LDL/HDL (test code = (NOTE) RATIO 2238) LIPID [id number] 00:00:00 Test Item Value Reference Range Interpretation Comments CHOLESTEROL (test code = 2210) 218 MG/DL TRIGLYCERIDES (test code = 2232) 414 MG/DL HDL CHOLESTEROL (test code = 36 MG/DL 2220) CALC LDL CHOL (test code = 2237) NOTE MG/DL RISK RATIO LDL/HDL (test code = (NOTE) RATIO 2238) CBC W/AUTO [id number] 00:00:00 Test Item Value Reference Range Interpretation [...] code = 1015) 241 K/UL CBC W/AUTO [id number] 00:00:00 Test Item Value Reference Range Interpretation [...] code = 1015) 241 K/UL CBC W/AUTO [id number] 00:00:00 Test Item Value Reference Range Interpretation [...] (test code = 1015) 241 K/UL HEMOGLOBIN [id number] 00:00:00 Test Item Value Reference Range Interpretation Comments HEMOGLOBIN A1c (test code = 58249) 14.8 % HEMOGLOBIN [id number] 00:00:00 Test Item Value Reference Range Interpretation Comments HEMOGLOBIN A1c (test code = 12855) 14.8 % HEMOGLOBIN [id number] 00:00:00 Test Item Value Reference Range Interpretation Comments HEMOGLOBIN A1c (test code = 11672) 14.8 % MICROALBUMIN, [id number] 00:00:00 Test Item Value Reference Range Interpretation Comments MICROALBUMIN, RANDOM (test code = 0.3 MG/DL 93204) COMPREHENSIVE METABOLIC [id number] 00:00:00 Test Item Value Reference Range Interpretation Comments GLUCOSE (test code = 2217) 451 MG/DL BUN (test code = 2208) 9 MG/DL CREATININE (test code = 2214) 0.51 MG/DL eGFR AMER. (test code 141 ML/MIN/1.73 = 93997) eGFR NON- AMER. (test 122 ML/MIN/1.73 code = 54349) CALC BUN/CREAT (test code = 18 RATIO [...] ALT (test code = 2219) 19 U/L COMPREHENSIVE METABOLIC [id number] 00:00:00 Test Item Value Reference Range Interpretation Comments GLUCOSE (test code = 2217) 451 MG/DL BUN (test code = 2208) 9 MG/DL CREATININE (test code = 2214) 0.51 MG/DL eGFR AMER. (test code 141 ML/MIN/1.73 = 83428) eGFR NON- AMER. (test 122 ML/MIN/1.73 code = 69043) CALC BUN/CREAT (test code = 18 RATIO [...] 2239) CALC A/G RATIO (test code = 1.5 RATIO 2233) BILIRUBIN, TOTAL (test code = 0.4 MG/DL 2206) ALKALINE PHOSPHATASE (test 108 U/L code = 2204) AST (test code = 2218) 14 U/L ALT (test code = 2219) 19 U/L MICROALBUMIN, [id number] 00:00:00 Test Item Value Reference Range Interpretation Comments MICROALBUMIN, RANDOM (test code = 0.3 MG/DL 99566) MICROALBUMIN, [id number] 00:00:00 Test Item Value Reference Range Interpretation Comments MICROALBUMIN, RANDOM (test code = 0.3 MG/DL 31044) COMPREHENSIVE METABOLIC [id number] 00:00:00 Test Item Value Reference Range Interpretation Comments GLUCOSE (test code = 2217) 451 MG/DL BUN (test code = 2208) 9 MG/DL CREATININE (test code = 2214) 0.51 MG/DL eGFR AMER. (test code 141 ML/MIN/1.73 = 17115) eGFR NON- AMER. (test 122 ML/MIN/1.73 code = 99727) CALC BUN/CREAT (test code = 18 RATIO 2235) SODIUM (test code = 2231) 130 MEQ/L POTASSIUM (test code = 2228) 3.9 MEQ/L CHLORIDE (test code = 2215) 92 MEQ/L CARBON DIOXIDE (test code = 27 MEQ/L 2205) CALCIUM (test code = 2209) 9.6 MG/DL [...] (test code = 2219) 19 U/L MICROALBUMIN, [id number] 00:00:00 Test Item Value Reference Range Interpretation Comments MICROALBUMIN, RANDOM (test code = 0.3 MG/DL 41129) LIPID [id number] 00:00:00 Test Item Value Reference Range Interpretation Comments CHOLESTEROL (test code = 2210) 218 MG/DL TRIGLYCERIDES (test code = 2232) 414 MG/DL HDL CHOLESTEROL (test code = 36 MG/DL 2220) CALC LDL CHOL (test code = 2237) NOTE MG/DL RISK RATIO LDL/HDL (test code = (NOTE) RATIO 2238) LIPID [id number] 00:00:00 Test Item Value Reference Range Interpretation Comments CHOLESTEROL (test code = 2210) 218 MG/DL TRIGLYCERIDES (test code = 2232) 414 MG/DL HDL CHOLESTEROL (test code = 36 MG/DL 2220) CALC LDL CHOL (test code = 2237) NOTE MG/DL RISK RATIO LDL/HDL (test code = (NOTE) RATIO 2238) CBC W/AUTO [id number] 00:00:00 Test Item Value Reference Range Interpretation [...] code = 1015) 241 K/UL CBC W/AUTO [id number] 00:00:00 Test Item Value Reference Range Interpretation [...] code = 1015) 241 K/UL CBC W/AUTO [id number] 00:00:00 Test Item Value Reference Range Interpretation [...] (test code = 1015) 241 K/UL HEMOGLOBIN [id number] 00:00:00 Test Item Value Reference Range Interpretation Comments HEMOGLOBIN A1c (test code = 80235) 14.8 % HEMOGLOBIN [id number] 00:00:00 Test Item Value Reference Range Interpretation Comments HEMOGLOBIN A1c (test code = 89229) 14.8 % HEMOGLOBIN [id number] 00:00:00 Test Item Value Reference Range Interpretation Comments HEMOGLOBIN A1c (test code = 37853) 14.8 % COMPREHENSIVE METABOLIC [id number] 00:00:00 Test Item Value Reference Range Interpretation Comments GLUCOSE (test code = 2217) 451 MG/DL BUN (test code = 2208) 9 MG/DL CREATININE (test code = 2214) 0.51 MG/DL eGFR AMER. (test code 141 ML/MIN/1.73 = 35893) eGFR NON- AMER. (test 122 ML/MIN/1.73 code = 76003) CALC BUN/CREAT (test code = 18 RATIO 2235) SODIUM (test code = 2231) 130 MEQ/L POTASSIUM (test code = 2228) 3.9 MEQ/L CHLORIDE (test code = 2215) 92 MEQ/L CARBON DIOXIDE (test code = 27 MEQ/L 2205) CALCIUM (test code = 2209) 9.6 MG/DL [...] (test code = 2219) 19 U/L LIPID [id number] 00:00:00 Test Item Value Reference Range Interpretation Comments CHOLESTEROL (test code = 2210) 218 MG/DL TRIGLYCERIDES (test code = 2232) 414 MG/DL HDL CHOLESTEROL (test code = 36 MG/DL 2220) CALC LDL CHOL (test code = 2237) NOTE MG/DL RISK RATIO LDL/HDL (test code = (NOTE) RATIO 2238) LIPID [id number] 00:00:00 Test Item Value Reference Range Interpretation Comments CHOLESTEROL (test code = 2210) 218 MG/DL TRIGLYCERIDES (test code = 2232) 414 MG/DL HDL CHOLESTEROL (test code = 36 MG/DL 2220) CALC LDL CHOL (test code = 2237) NOTE MG/DL RISK RATIO LDL/HDL (test code = (NOTE) RATIO 2238) CBC W/AUTO [id number] 00:00:00 Test Item Value Reference Range Interpretation [...] code = 1015) 241 K/UL CBC W/AUTO [id number] 00:00:00 Test Item Value Reference Range Interpretation [...] code = 1015) 241 K/UL CBC W/AUTO [id number] 00:00:00 Test Item Value Reference Range Interpretation [...] (test code = 1015) 241 K/UL HEMOGLOBIN [id number] 00:00:00 Test Item Value Reference Range Interpretation Comments HEMOGLOBIN A1c (test code = 94156) 14.8 % HEMOGLOBIN [id number] 00:00:00 Test Item Value Reference Range Interpretation Comments HEMOGLOBIN A1c (test code = 03964) 14.8 % HEMOGLOBIN [id number] 00:00:00 Test Item Value Reference Range Interpretation Comments HEMOGLOBIN A1c (test code = 58950) 14.8 % MICROALBUMIN, [id number] 00:00:00 Test Item Value Reference Range Interpretation Comments MICROALBUMIN, RANDOM (test code = 0.3 MG/DL 05492) MICROALBUMIN, [id number] 00:00:00 Test Item Value Reference Range Interpretation Comments MICROALBUMIN, RANDOM (test code = 0.3 MG/DL 24536) COMPREHENSIVE METABOLIC [id number] 00:00:00 Test Item Value Reference Range Interpretation Comments GLUCOSE (test code = 2217) 451 MG/DL BUN (test code = 2208) 9 MG/DL CREATININE (test code = 2214) 0.51 MG/DL eGFR AMER. (test code 141 ML/MIN/1.73 = 57193) eGFR NON- AMER. (test 122 ML/MIN/1.73 code = 12439) CALC BUN/CREAT (test code = 18 RATIO 2235) SODIUM (test code = 2231) 130 MEQ/L POTASSIUM (test code = 2228) 3.9 MEQ/L CHLORIDE (test code = 2215) 92 MEQ/L CARBON DIOXIDE (test code = 27 MEQ/L 2206) CALCIUM (test code = 2209) 9.6 MG/DL PROTEIN, TOTAL (test code = 7.2 G/DL 2228) ALBUMIN (test code = 2201) 4.3 G/DL CALC GLOBULIN (test code = 2.9 G/DL 2240) CALC A/G RATIO (test code = 1.5 RATIO 2234) BILIRUBIN, TOTAL (test code = 0.4 MG/DL 2207) ALKALINE PHOSPHATASE (test 108 U/L code = 2204) AST (test code = 2218) 14 U/L ALT (test code = 2219) 19 U/L COMPREHENSIVE METABOLIC [id number] 00:00:00 Test Item Value Reference Range Interpretation Comments GLUCOSE (test code = 2217) 451 MG/DL BUN (test code = 2208) 9 MG/DL CREATININE (test code = 2214) 0.51 MG/DL eGFR AMER. (test code 141 ML/MIN/1.73 = 57006) eGFR NON- AMER. (test 122 ML/MIN/1.73 code = 93358) CALC BUN/CREAT (test code = 18 RATIO 2235) SODIUM (test code = 2231) 130 MEQ/L POTASSIUM (test code = 2228) 3.9 MEQ/L CHLORIDE (test code = 2215) 92 MEQ/L CARBON DIOXIDE (test code = 27 MEQ/L 2206) CALCIUM (test code = 2209) 9.6 MG/DL PROTEIN, TOTAL (test code = 7.2 G/DL 2229) ALBUMIN (test code = 2201) 4.3 G/DL CALC GLOBULIN (test code = 2.9 G/DL 2240) CALC A/G RATIO (test code = 1.5 RATIO 2234) BILIRUBIN, TOTAL (test code = 0.4 MG/DL 2207) ALKALINE PHOSPHATASE (test 108 U/L code = 2204) AST (test code = 2218) 14 U/L ALT (test code = 2219) 19 U/L LIPID [id number] 00:00:00 Test Item Value Reference Range Interpretation Comments CHOLESTEROL (test code = 2210) 218 MG/DL TRIGLYCERIDES (test code = 2232) 414 MG/DL HDL CHOLESTEROL (test code = 36 MG/DL 2220) CALC LDL CHOL (test code = 2237) NOTE MG/DL RISK RATIO LDL/HDL (test code = (NOTE) RATIO 2238) LIPID [id number] 00:00:00 Test Item Value Reference Range Interpretation Comments CHOLESTEROL (test code = 2210) 218 MG/DL TRIGLYCERIDES (test code = 2232) 414 MG/DL HDL CHOLESTEROL (test code = 36 MG/DL 2220) CALC LDL CHOL (test code = 2237) NOTE MG/DL RISK RATIO LDL/HDL (test code = (NOTE) RATIO 2238) CBC W/AUTO [id number] 00:00:00 Test Item Value Reference Range Interpretation [...] code = 1015) 241 K/UL CBC W/AUTO [id number] 00:00:00 Test Item Value Reference Range Interpretation [...] code = 1015) 241 K/UL CBC W/AUTO [id number] 00:00:00 Test Item Value Reference Range Interpretation [...] (test code = 1015) 241 K/UL HEMOGLOBIN [id number] 00:00:00 Test Item Value Reference Range Interpretation Comments HEMOGLOBIN A1c (test code = 24150) 14.8 % HEMOGLOBIN [id number] 00:00:00 Test Item Value Reference Range Interpretation Comments HEMOGLOBIN A1c (test code = 89624) 14.8 % HEMOGLOBIN [id number] 00:00:00 Test Item Value Reference Range Interpretation Comments HEMOGLOBIN A1c (test code = 63721) 14.8 % MICROALBUMIN, [id number] 00:00:00 Test Item Value Reference Range Interpretation Comments MICROALBUMIN, RANDOM (test code = 0.3 MG/DL 42617) MICROALBUMIN, [id number] 00:00:00 Test Item Value Reference Range Interpretation Comments MICROALBUMIN, RANDOM (test code = 0.3 MG/DL 06666) COMPREHENSIVE METABOLIC [id number] 00:00:00 Test Item Value Reference Range Interpretation Comments GLUCOSE (test code = 2217) 451 MG/DL BUN (test code = 2208) 9 MG/DL CREATININE (test code = 2214) 0.51 MG/DL eGFR AMER. (test code 141 ML/MIN/1.73 = 92082) eGFR NON- AMER. (test 122 ML/MIN/1.73 code = 73706) CALC BUN/CREAT (test code = 18 RATIO 2235) SODIUM (test code = 2231) 130 MEQ/L POTASSIUM (test code = 2228) 3.9 MEQ/L CHLORIDE (test code = 2215) 92 MEQ/L CARBON DIOXIDE (test code = 27 MEQ/L 2206) CALCIUM (test code = 2209) 9.6 MG/DL PROTEIN, TOTAL (test code = 7.2 G/DL 222) ALBUMIN (test code = 2201) 4.3 G/DL CALC GLOBULIN (test code = 2.9 G/DL 2240) CALC A/G RATIO (test code = 1.5 RATIO 2234) BILIRUBIN, TOTAL (test code = 0.4 MG/DL 220) ALKALINE PHOSPHATASE (test 108 U/L code = 2204) AST (test code = 2218) 14 U/L ALT (test code = 2219) 19 U/L COMPREHENSIVE METABOLIC [id number] 00:00:00 Test Item Value Reference Range Interpretation Comments GLUCOSE (test code = 2217) 451 MG/DL BUN (test code = 2208) 9 MG/DL CREATININE (test code = 2214) 0.51 MG/DL eGFR AMER. (test code 141 ML/MIN/1.73 = 06090) eGFR NON- AMER. (test 122 ML/MIN/1.73 code = 20213) CALC BUN/CREAT (test code = 18 RATIO 2235) SODIUM (test code = 2231) 130 MEQ/L POTASSIUM (test code = 2228) 3.9 MEQ/L CHLORIDE (test code = 2215) 92 MEQ/L CARBON DIOXIDE (test code = 27 MEQ/L 2205) CALCIUM (test code = 2209) 9.6 MG/DL PROTEIN, TOTAL (test code = 7.2 G/DL 2228) ALBUMIN (test code = 2201) 4.3 G/DL CALC GLOBULIN (test code = 2.9 G/DL 2240) CALC A/G RATIO (test code = 1.5 RATIO 2234) BILIRUBIN, TOTAL (test code = 0.4 MG/DL 2207) ALKALINE PHOSPHATASE (test 108 U/L code = 2204) AST (test code = 2218) 14 U/L ALT (test code = 2219) 19 U/L LIPID [id number] 00:00:00 Test Item Value Reference Range Interpretation Comments CHOLESTEROL (test code = 2210) 218 MG/DL TRIGLYCERIDES (test code = 2232) 414 MG/DL HDL CHOLESTEROL (test code = 36 MG/DL 2220) CALC LDL CHOL (test code = 2237) NOTE MG/DL RISK RATIO LDL/HDL (test code = (NOTE) RATIO 2238) LIPID [id number] 00:00:00 Test Item Value Reference Range Interpretation Comments CHOLESTEROL (test code = 2210) 218 MG/DL TRIGLYCERIDES (test code = 2232) 414 MG/DL HDL CHOLESTEROL (test code = 36 MG/DL 2220) CALC LDL CHOL (test code = 2237) NOTE MG/DL RISK RATIO LDL/HDL (test code = (NOTE) RATIO 2238) CBC W/AUTO [id number] 00:00:00 Test Item Value Reference Range Interpretation [...] code = 1015) 241 K/UL CBC W/AUTO [id number] 00:00:00 Test Item Value Reference Range Interpretation [...] code = 1015) 241 K/UL CBC W/AUTO [id number] 00:00:00 Test Item Value Reference Range Interpretation [...] (test code = 1015) 241 K/UL HEMOGLOBIN [id number] 00:00:00 Test Item Value Reference Range Interpretation Comments HEMOGLOBIN A1c (test code = 53514) 14.8 % HEMOGLOBIN [id number] 00:00:00 Test Item Value Reference Range Interpretation Comments HEMOGLOBIN A1c (test code = 18163) 14.8 % HEMOGLOBIN [id number] 00:00:00 Test Item Value Reference Range Interpretation Comments HEMOGLOBIN A1c (test code = 20689) 14.8 % COMPREHENSIVE METABOLIC [id number] 00:00:00 Test Item Value Reference Range Interpretation Comments GLUCOSE (test code = 2217) 451 MG/DL BUN (test code = 2208) 9 MG/DL CREATININE (test code = 2214) 0.51 MG/DL eGFR AMER. (test code 141 ML/MIN/1.73 = 24419) eGFR NON- AMER. (test 122 ML/MIN/1.73 code = 59974) CALC BUN/CREAT (test code = 18 RATIO 2235) SODIUM (test code = 2231) 130 MEQ/L POTASSIUM (test code = 2228) 3.9 MEQ/L CHLORIDE (test code = 2215) 92 MEQ/L CARBON DIOXIDE (test code = 27 MEQ/L 2206) CALCIUM (test code = 2209) [...] (test code = 2219) 19 U/L MICROALBUMIN, [id number] 00:00:00 Test Item Value Reference Range Interpretation Comments MICROALBUMIN, RANDOM (test code = 0.3 MG/DL 42123) MICROALBUMIN, [id number] 00:00:00 Test Item Value Reference Range Interpretation Comments MICROALBUMIN, RANDOM (test code = 0.3 MG/DL 46878) COMPREHENSIVE METABOLIC [id number] 00:00:00 Test Item Value Reference Range Interpretation Comments GLUCOSE (test code = 2217) 451 MG/DL BUN (test code = 2208) 9 MG/DL CREATININE (test code = 2214) 0.51 MG/DL eGFR AMER. (test code 141 ML/MIN/1.73 = 14417) eGFR NON- AMER. (test 122 ML/MIN/1.73 code = 76950) CALC BUN/CREAT (test code = 18 RATIO 2235) SODIUM (test code = 2231) 130 MEQ/L POTASSIUM (test code = 2228) 3.9 MEQ/L CHLORIDE (test code = 2215) 92 MEQ/L CARBON DIOXIDE (test code = 27 MEQ/L 2206) CALCIUM (test code = 2209) [...] (test code = 2219) 19 U/L LIPID [id number] 00:00:00 Test Item Value Reference Range Interpretation Comments CHOLESTEROL (test code = 2210) 218 MG/DL TRIGLYCERIDES (test code = 2232) 414 MG/DL HDL CHOLESTEROL (test code = 36 MG/DL 2220) CALC LDL CHOL (test code = 2237) NOTE MG/DL RISK RATIO LDL/HDL (test code = (NOTE) RATIO 2238) LIPID [id number] 00:00:00 Test Item Value Reference Range Interpretation Comments CHOLESTEROL (test code = 2210) 218 MG/DL TRIGLYCERIDES (test code = 2232) 414 MG/DL HDL CHOLESTEROL (test code = 36 MG/DL 2220) CALC LDL CHOL (test code = 2237) NOTE MG/DL RISK RATIO LDL/HDL (test code = (NOTE) RATIO 2238) CBC W/AUTO [id number] 00:00:00 Test Item Value Reference Range Interpretation [...] COUNT (test code = 1015) 241 K/UL COMPREHENSIVE METABOLIC [id number] 00:00:00 Test Item Value Reference Range Interpretation Comments GLUCOSE (test code = 2217) 343 MG/DL BUN (test code = 2208) 9 MG/DL CREATININE (test code = 2214) 0.56 MG/DL eGFR AMER. (test code 138 ML/MIN/1.73 = 35450) eGFR NON- AMER. (test 119 ML/MIN/1.73 code = 93885) CALC BUN/CREAT (test code = 16 RATIO 2235) SODIUM (test code = 2231) 134 MEQ/L POTASSIUM (test code = 2228) 4.1 MEQ/L CHLORIDE (test code = 2215) 93 MEQ/L CARBON DIOXIDE (test code = 21 MEQ/L 2205) CALCIUM (test code = 2209) 9.4 MG/DL PROTEIN, TOTAL (test code = 7.1 G/DL 222) ALBUMIN (test code = 2201) 4.4 G/DL CALC GLOBULIN (test code = 2.7 G/DL 2240) CALC A/G RATIO (test code = 1.6 RATIO 2234) BILIRUBIN, TOTAL (test code = 0.7 MG/DL 220) ALKALINE PHOSPHATASE (test 66 U/L code = 2204) AST (test code = 2218) 27 U/L ALT (test code = 2219) 40 U/L COMPREHENSIVE METABOLIC [id number] 00:00:00 Test Item Value Reference Range Interpretation Comments GLUCOSE (test code = 2217) 343 MG/DL BUN (test code = 2208) 9 MG/DL CREATININE (test code = 2214) 0.56 MG/DL eGFR AMER. (test code 138 ML/MIN/1.73 = 53629) eGFR NON- AMER. (test 119 ML/MIN/1.73 code = 15327) CALC BUN/CREAT (test code = 16 RATIO 2235) SODIUM (test code = 2231) 134 MEQ/L POTASSIUM (test code = 2228) 4.1 MEQ/L CHLORIDE (test code = 2215) 93 MEQ/L CARBON DIOXIDE (test code = 21 MEQ/L 2205) CALCIUM (test code = 2209) 9.4 MG/DL [...] (test code = 2219) 40 U/L LIPID [id number] 00:00:00 Test Item Value Reference Range Interpretation Comments CHOLESTEROL (test code = 2210) 185 MG/DL TRIGLYCERIDES (test code = 2232) 394 MG/DL HDL CHOLESTEROL (test code = 2220) 34 MG/DL CALC LDL CHOL (test code = 2237) 72 MG/DL RISK RATIO LDL/HDL (test code = 2.12 RATIO 2238) LIPID [id number] 00:00:00 Test Item Value Reference Range Interpretation [...] (test code = 2821) 1.1 UIU/ML HEMOGLOBIN [id number] 00:00:00 Test Item Value Reference Range Interpretation Comments HEMOGLOBIN A1c (test code = 10102) 10.4 % HEMOGLOBIN [id number] 00:00:00 Test Item Value Reference Range Interpretation Comments HEMOGLOBIN A1c (test code = 03228) 10.4 % HEMOGLOBIN [id number] 00:00:00 Test Item Value Reference Range Interpretation Comments HEMOGLOBIN A1c (test code = 37356) 10.4 % CBC W/AUTO [id number] 00:00:00 Test Item Value Reference Range Interpretation [...] code = 1015) 295 K/UL CBC W/AUTO [id number] 00:00:00 Test Item Value Reference Range Interpretation [...] code = 1015) 295 K/UL CBC W/AUTO [id number] 00:00:00 Test Item Value Reference Range Interpretation [...] code = 1015) 295 K/UL COMPREHENSIVE METABOLIC [id number] 00:00:00 Test Item Value Reference Range Interpretation Comments GLUCOSE (test code = 2217) 343 MG/DL BUN (test code = 2208) 9 MG/DL CREATININE (test code = 2214) 0.56 MG/DL eGFR AMER. (test code 138 ML/MIN/1.73 = 44523) eGFR NON- AMER. (test 119 ML/MIN/1.73 code = 04077) CALC BUN/CREAT (test code = 16 RATIO 2235) SODIUM (test code = 2231) 134 MEQ/L POTASSIUM (test code = 2228) 4.1 MEQ/L CHLORIDE (test code = 2215) 93 MEQ/L CARBON DIOXIDE (test code = 21 MEQ/L 2205) CALCIUM (test code = 2209) 9.4 MG/DL [...] code = 2219) 40 U/L COMPREHENSIVE METABOLIC [id number] 00:00:00 Test Item Value Reference Range Interpretation Comments GLUCOSE (test code = 2217) 343 MG/DL BUN (test code = 2208) 9 MG/DL CREATININE (test code = 2214) 0.56 MG/DL eGFR AMER. (test code 138 ML/MIN/1.73 = 87071) eGFR NON- AMER. (test 119 ML/MIN/1.73 code = 74006) CALC BUN/CREAT (test code = 16 RATIO 2235) SODIUM (test code = 2231) 134 MEQ/L POTASSIUM (test code = 2228) 4.1 MEQ/L CHLORIDE (test code = 2215) 93 MEQ/L CARBON DIOXIDE (test code = 21 MEQ/L 2205) CALCIUM (test code = 2209) 9.4 MG/DL [...] (test code = 2219) 40 U/L LIPID [id number] 00:00:00 Test Item Value Reference Range Interpretation Comments CHOLESTEROL (test code = 2210) 185 MG/DL TRIGLYCERIDES (test code = 2232) 394 MG/DL HDL CHOLESTEROL (test code = 2220) 34 MG/DL CALC LDL CHOL (test code = 2237) 72 MG/DL RISK RATIO LDL/HDL (test code = 2.12 RATIO 2238) LIPID [id number] 00:00:00 Test Item Value Reference Range Interpretation [...] (test code = 2821) 1.1 UIU/ML HEMOGLOBIN [id number] 00:00:00 Test Item Value Reference Range Interpretation Comments HEMOGLOBIN A1c (test code = 05625) 10.4 % HEMOGLOBIN [id number] 00:00:00 Test Item Value Reference Range Interpretation Comments HEMOGLOBIN A1c (test code = 77522) 10.4 % HEMOGLOBIN [id number] 00:00:00 Test Item Value Reference Range Interpretation Comments HEMOGLOBIN A1c (test code = 51865) 10.4 % HEMOGLOBIN [id number] 00:00:00 Test Item Value Reference Range Interpretation Comments HEMOGLOBIN A1c (test code = 48576) 10.4 % HEMOGLOBIN [id number] 00:00:00 Test Item Value Reference Range Interpretation Comments HEMOGLOBIN A1c (test code = 17091) 10.4 % CBC W/AUTO [id number] 00:00:00 Test Item Value Reference Range Interpretation [...] code = 1015) 295 K/UL CBC W/AUTO [id number] 00:00:00 Test Item Value Reference Range Interpretation [...] code = 1015) 295 K/UL CBC W/AUTO [id number] 00:00:00 Test Item Value Reference Range Interpretation [...] COUNT (test code = 1015) 295 K/UL HEMOGLOBIN [id number] 00:00:00 Test Item Value Reference Range Interpretation Comments HEMOGLOBIN A1c (test code = 60594) 10.4 % COMPREHENSIVE METABOLIC [id number] 00:00:00 Test Item Value Reference Range Interpretation Comments GLUCOSE (test code = 2217) 343 MG/DL BUN (test code = 2208) 9 MG/DL CREATININE (test code = 2214) 0.56 MG/DL eGFR AMER. (test code 138 ML/MIN/1.73 = 72629) eGFR NON- AMER. (test 119 ML/MIN/1.73 code = 03430) CALC BUN/CREAT (test code = 16 RATIO 2235) SODIUM (test code = 2231) 134 MEQ/L POTASSIUM (test code = 2228) 4.1 MEQ/L CHLORIDE (test code = 2215) 93 MEQ/L CARBON DIOXIDE (test code = 21 MEQ/L 2205) CALCIUM (test code = 2209) 9.4 MG/DL [...] code = 2219) 40 U/L COMPREHENSIVE METABOLIC [id number] 00:00:00 Test Item Value Reference Range Interpretation Comments GLUCOSE (test code = 2217) 343 MG/DL BUN (test code = 2208) 9 MG/DL CREATININE (test code = 2214) 0.56 MG/DL eGFR AMER. (test code 138 ML/MIN/1.73 = 58707) eGFR NON- AMER. (test 119 ML/MIN/1.73 code = 85086) CALC BUN/CREAT (test code = 16 RATIO 2235) SODIUM (test code = 2231) 134 MEQ/L POTASSIUM (test code = 2228) 4.1 MEQ/L CHLORIDE (test code = 2215) 93 MEQ/L CARBON DIOXIDE (test code = 21 MEQ/L 2205) CALCIUM (test code = 2209) 9.4 MG/DL PROTEIN, TOTAL (test code = 7.1 G/DL 2228) ALBUMIN (test code = 2201) 4.4 G/DL CALC GLOBULIN (test code = 2.7 G/DL 224) CALC A/G RATIO (test code = 1.6 RATIO 2234) BILIRUBIN, TOTAL (test code = 0.7 MG/DL 2206) ALKALINE PHOSPHATASE (test 66 U/L code = 2204) AST (test code = 2218) 27 U/L ALT (test code = 2219) 40 U/L LIPID [id number] 00:00:00 Test Item Value Reference Range Interpretation Comments CHOLESTEROL (test code = 2210) 185 MG/DL TRIGLYCERIDES (test code = 2232) 394 MG/DL HDL CHOLESTEROL (test code = 2220) 34 MG/DL CALC LDL CHOL (test code = 2237) 72 MG/DL RISK RATIO LDL/HDL (test code = 2.12 RATIO 2238) LIPID [id number] 00:00:00 Test Item Value Reference Range Interpretation [...] TSH (test code = 2821) 1.1 UIU/ML CBC W/AUTO [id number] 00:00:00 Test Item Value Reference Range Interpretation [...] code = 1015) 295 K/UL CBC W/AUTO [id number] 00:00:00 Test Item Value Reference Range Interpretation [...] code = 1015) 295 K/UL CBC W/AUTO [id number] 00:00:00 Test Item Value Reference Range Interpretation [...] code = 1015) 295 K/UL COMPREHENSIVE METABOLIC [id number] 00:00:00 Test Item Value Reference Range Interpretation Comments GLUCOSE (test code = 2217) 343 MG/DL BUN (test code = 2208) 9 MG/DL CREATININE (test code = 2214) 0.56 MG/DL eGFR AMER. (test code 138 ML/MIN/1.73 = 74188) eGFR NON- AMER. (test 119 ML/MIN/1.73 code = 33198) CALC BUN/CREAT (test code = 16 RATIO [...] code = 2219) 40 U/L COMPREHENSIVE METABOLIC [id number] 00:00:00 Test Item Value Reference Range Interpretation Comments GLUCOSE (test code = 2217) 343 MG/DL BUN (test code = 2208) 9 MG/DL CREATININE (test code = 2214) 0.56 MG/DL eGFR AMER. (test code 138 ML/MIN/1.73 = 56207) eGFR NON- AMER. (test 119 ML/MIN/1.73 code = 66349) CALC BUN/CREAT (test code = 16 RATIO 2235) SODIUM (test code = 2231) 134 MEQ/L POTASSIUM (test code = 2228) 4.1 MEQ/L CHLORIDE (test code = 2215) 93 MEQ/L CARBON DIOXIDE (test code = 21 MEQ/L 2205) CALCIUM (test code = 2209) 9.4 MG/DL [...] (test code = 2219) 40 U/L LIPID [id number] 00:00:00 Test Item Value Reference Range Interpretation Comments CHOLESTEROL (test code = 2210) 185 MG/DL TRIGLYCERIDES (test code = 2232) 394 MG/DL HDL CHOLESTEROL (test code = 2220) 34 MG/DL CALC LDL CHOL (test code = 2237) 72 MG/DL RISK RATIO LDL/HDL (test code = 2.12 RATIO 2238) LIPID [id number] 00:00:00 Test Item Value Reference Range Interpretation [...] (test code = 2821) 1.1 UIU/ML HEMOGLOBIN [id number] 00:00:00 Test Item Value Reference Range Interpretation Comments HEMOGLOBIN A1c (test code = 44482) 10.4 % HEMOGLOBIN [id number] 00:00:00 Test Item Value Reference Range Interpretation Comments HEMOGLOBIN A1c (test code = 48065) 10.4 % HEMOGLOBIN [id number] 00:00:00 Test Item Value Reference Range Interpretation Comments HEMOGLOBIN A1c (test code = 41368) 10.4 % CBC W/AUTO [id number] 00:00:00 Test Item Value Reference Range Interpretation [...] code = 1015) 295 K/UL CBC W/AUTO [id number] 00:00:00 Test Item Value Reference Range Interpretation [...] code = 1015) 295 K/UL CBC W/AUTO [id number] 00:00:00 Test Item Value Reference Range Interpretation [...] code = 1015) 295 K/UL COMPREHENSIVE METABOLIC [id number] 00:00:00 Test Item Value Reference Range Interpretation Comments GLUCOSE (test code = 2217) 343 MG/DL BUN (test code = 2208) 9 MG/DL CREATININE (test code = 2214) 0.56 MG/DL eGFR AMER. (test code 138 ML/MIN/1.73 = 44034) eGFR NON- AMER. (test 119 ML/MIN/1.73 code = 44615) CALC BUN/CREAT (test code = 16 RATIO 2235) SODIUM (test code = 2231) 134 MEQ/L POTASSIUM (test code = 2228) 4.1 MEQ/L CHLORIDE (test code = 2215) 93 MEQ/L CARBON DIOXIDE (test code = 21 MEQ/L 220) CALCIUM (test code = 2209) 9.4 MG/DL PROTEIN, TOTAL (test code = 7.1 G/DL 222) ALBUMIN (test code = 2201) 4.4 G/DL CALC GLOBULIN (test code = 2.7 G/DL 2240) CALC A/G RATIO (test code = 1.6 RATIO 2234) BILIRUBIN, TOTAL (test code = 0.7 MG/DL 2206) ALKALINE PHOSPHATASE (test 66 U/L code = 2204) AST (test code = 2218) 27 U/L ALT (test code = 2219) 40 U/L COMPREHENSIVE METABOLIC [id number] 00:00:00 Test Item Value Reference Range Interpretation Comments GLUCOSE (test code = 2217) 343 MG/DL BUN (test code = 2208) 9 MG/DL CREATININE (test code = 2214) 0.56 MG/DL eGFR AMER. (test code 138 ML/MIN/1.73 = 99770) eGFR NON- AMER. (test 119 ML/MIN/1.73 code = 01136) CALC BUN/CREAT (test code = 16 RATIO 2235) SODIUM (test code = 2231) 134 MEQ/L POTASSIUM (test code = 2228) 4.1 MEQ/L CHLORIDE (test code = 2215) 93 MEQ/L CARBON DIOXIDE (test code = 21 MEQ/L 2205) CALCIUM (test code = 2209) 9.4 MG/DL PROTEIN, TOTAL (test code = 7.1 G/DL 2228) ALBUMIN (test code = 2201) 4.4 G/DL CALC GLOBULIN (test code = 2.7 G/DL 2240) CALC A/G RATIO (test code = 1.6 RATIO 2234) BILIRUBIN, TOTAL (test code = 0.7 MG/DL 7) ALKALINE PHOSPHATASE (test 66 U/L code = 2204) AST (test code = 2218) 27 U/L ALT (test code = 2219) 40 U/L LIPID [id number] 00:00:00 Test Item Value Reference Range Interpretation Comments CHOLESTEROL (test code = 2210) 185 MG/DL TRIGLYCERIDES (test code = 2232) 394 MG/DL HDL CHOLESTEROL (test code = 2220) 34 MG/DL CALC LDL CHOL (test code = 2237) 72 MG/DL RISK RATIO LDL/HDL (test code = 2.12 RATIO 2238) LIPID [id number] 00:00:00 Test Item Value Reference Range Interpretation [...] (test code = 2821) 1.1 UIU/ML HEMOGLOBIN [id number] 00:00:00 Test Item Value Reference Range Interpretation Comments HEMOGLOBIN A1c (test code = 41058) 10.4 % HEMOGLOBIN [id number] 00:00:00 Test Item Value Reference Range Interpretation Comments HEMOGLOBIN A1c (test code = 17164) 10.4 % HEMOGLOBIN [id number] 00:00:00 Test Item Value Reference Range Interpretation Comments HEMOGLOBIN A1c (test code = 37849) 10.4 % CBC W/AUTO [id number] 00:00:00 Test Item Value Reference Range Interpretation [...] code = 1015) 295 K/UL CBC W/AUTO [id number] 00:00:00 Test Item Value Reference Range Interpretation [...] code = 1015) 295 K/UL CBC W/AUTO [id number] 00:00:00 Test Item Value Reference Range Interpretation [...] code = 1015) 295 K/UL COMPREHENSIVE METABOLIC [id number] 00:00:00 Test Item Value Reference Range Interpretation Comments GLUCOSE (test code = 2217) 343 MG/DL BUN (test code = 2208) 9 MG/DL CREATININE (test code = 2214) 0.56 MG/DL eGFR AMER. (test code 138 ML/MIN/1.73 = 89331) eGFR NON- AMER. (test 119 ML/MIN/1.73 code = 48788) CALC BUN/CREAT (test code = 16 RATIO [...] CALC GLOBULIN (test code = 2.7 G/DL 224) CALC A/G RATIO (test code = 1.6 RATIO 2234) BILIRUBIN, TOTAL (test code = 0.7 MG/DL 2206) ALKALINE PHOSPHATASE (test 66 U/L code = 2204) AST (test code = 2218) 27 U/L ALT (test code = 2219) 40 U/L COMPREHENSIVE METABOLIC [id number] 00:00:00 Test Item Value Reference Range Interpretation Comments GLUCOSE (test code = 2217) 343 MG/DL BUN (test code = 2208) 9 MG/DL CREATININE (test code = 2214) 0.56 MG/DL eGFR AMER. (test code 138 ML/MIN/1.73 = 91354) eGFR NON- AMER. (test 119 ML/MIN/1.73 code = 42958) CALC BUN/CREAT (test code = 16 RATIO [...] (test code = 2219) 40 U/L LIPID [id number] 00:00:00 Test Item Value Reference Range Interpretation Comments CHOLESTEROL (test code = 2210) 185 MG/DL TRIGLYCERIDES (test code = 2232) 394 MG/DL HDL CHOLESTEROL (test code = 2220) 34 MG/DL CALC LDL CHOL (test code = 2237) 72 MG/DL RISK RATIO LDL/HDL (test code = 2.12 RATIO 2238) LIPID [id number] 00:00:00 Test Item Value Reference Range Interpretation [...] (test code = 2821) 1.1 UIU/ML HEMOGLOBIN [id number] 00:00:00 Test Item Value Reference Range Interpretation Comments HEMOGLOBIN A1c (test code = 11414) 10.4 % HEMOGLOBIN [id number] 00:00:00 Test Item Value Reference Range Interpretation Comments HEMOGLOBIN A1c (test code = 46728) 10.4 % HEMOGLOBIN [id number] 00:00:00 Test Item Value Reference Range Interpretation Comments HEMOGLOBIN A1c (test code = 29966) 10.4 % CBC W/AUTO [id number] 00:00:00 Test Item Value Reference Range Interpretation [...] code = 1015) 295 K/UL CBC W/AUTO [id number] 00:00:00 Test Item Value Reference Range Interpretation [...] code = 1015) 295 K/UL CBC W/AUTO [id number] 00:00:00 Test Item Value Reference Range Interpretation [...] COUNT (test code = 1015) 295 K/UL HEMOGLOBIN [id number] 00:00:00 Test Item Value Reference Range Interpretation Comments HEMOGLOBIN A1c (test code = 27303) 14.8 % HEMOGLOBIN [id number] 00:00:00 Test Item Value Reference Range Interpretation Comments HEMOGLOBIN A1c (test code = 30033) 14.8 % HEMOGLOBIN [id number] 00:00:00 Test Item Value Reference Range Interpretation Comments HEMOGLOBIN A1c (test code = 44597) 14.8 % MICROALBUMIN, [id number] 00:00:00 Test Item Value Reference Range Interpretation Comments MICROALBUMIN, RANDOM (test code = 0.7 MG/DL 93281) MICROALBUMIN, [id number] 00:00:00 Test Item Value Reference Range Interpretation Comments MICROALBUMIN, RANDOM (test code = 0.7 MG/DL 92260) HEMOGLOBIN [id number] 00:00:00 Test Item Value Reference Range Interpretation Comments HEMOGLOBIN A1c (test code = 37816) 14.8 % HEMOGLOBIN [id number] 00:00:00 Test Item Value Reference Range Interpretation Comments HEMOGLOBIN A1c (test code = 97694) 14.8 % HEMOGLOBIN [id number] 00:00:00 Test Item Value Reference Range Interpretation Comments HEMOGLOBIN A1c (test code = 64827) 14.8 % HEMOGLOBIN [id number] 00:00:00 Test Item Value Reference Range Interpretation Comments HEMOGLOBIN A1c (test code = 62505) 14.8 % HEMOGLOBIN [id number] 00:00:00 Test Item Value Reference Range Interpretation Comments HEMOGLOBIN A1c (test code = 16656) 14.8 % MICROALBUMIN, [id number] 00:00:00 Test Item Value Reference Range Interpretation Comments MICROALBUMIN, RANDOM (test code = 0.7 MG/DL 15424) MICROALBUMIN, [id number] 00:00:00 Test Item Value Reference Range Interpretation Comments MICROALBUMIN, RANDOM (test code = 0.7 MG/DL 30554) HEMOGLOBIN [id number] 00:00:00 Test Item Value Reference Range Interpretation Comments HEMOGLOBIN A1c (test code = 27931) 14.8 % MICROALBUMIN, [id number] 00:00:00 Test Item Value Reference Range Interpretation Comments MICROALBUMIN, RANDOM (test code = 0.7 MG/DL 18473) MICROALBUMIN, [id number] 00:00:00 Test Item Value Reference Range Interpretation Comments MICROALBUMIN, RANDOM (test code = 0.7 MG/DL 30523) HEMOGLOBIN [id number] 00:00:00 Test Item Value Reference Range Interpretation Comments HEMOGLOBIN A1c (test code = 94364) 14.8 % HEMOGLOBIN [id number] 00:00:00 Test Item Value Reference Range Interpretation Comments HEMOGLOBIN A1c (test code = 48757) 14.8 % HEMOGLOBIN [id number] 00:00:00 Test Item Value Reference Range Interpretation Comments HEMOGLOBIN A1c (test code = 15169) 14.8 % MICROALBUMIN, [id number] 00:00:00 Test Item Value Reference Range Interpretation Comments MICROALBUMIN, RANDOM (test code = 0.7 MG/DL 59987) MICROALBUMIN, [id number] 00:00:00 Test Item Value Reference Range Interpretation Comments MICROALBUMIN, RANDOM (test code = 0.7 MG/DL 84727) HEMOGLOBIN [id number] 00:00:00 Test Item Value Reference Range Interpretation Comments HEMOGLOBIN A1c (test code = 79700) 14.8 % HEMOGLOBIN [id number] 00:00:00 Test Item Value Reference Range Interpretation Comments HEMOGLOBIN A1c (test code = 08096) 14.8 % HEMOGLOBIN [id number] 00:00:00 Test Item Value Reference Range Interpretation Comments HEMOGLOBIN A1c (test code = 28145) 14.8 % MICROALBUMIN, [id number] 00:00:00 Test Item Value Reference Range Interpretation Comments MICROALBUMIN, RANDOM (test code = 0.7 MG/DL 70081) MICROALBUMIN, [id number] 00:00:00 Test Item Value Reference Range Interpretation Comments MICROALBUMIN, RANDOM (test code = 0.7 MG/DL 46751) HEMOGLOBIN [id number] 00:00:00 Test Item Value Reference Range Interpretation Comments HEMOGLOBIN A1c (test code = 25655) 14.8 % HEMOGLOBIN [id number] 00:00:00 Test Item Value Reference Range Interpretation Comments HEMOGLOBIN A1c (test code = 50794) 14.8 % HEMOGLOBIN [id number] 00:00:00 Test Item Value Reference Range Interpretation Comments HEMOGLOBIN A1c (test code = 72743) 14.8 % MICROALBUMIN, [id number] 00:00:00 Test Item Value Reference Range Interpretation Comments MICROALBUMIN, RANDOM (test code = 0.7 MG/DL 63960) MICROALBUMIN, [id number] 00:00:00 Test Item Value Reference Range Interpretation Comments MICROALBUMIN, RANDOM (test code = 0.7 MG/DL 75400) RETICULOCYTE [id number] 00:00:00 Test Item Value Reference Range Interpretation Comments RETICULOCYTE COUNT (test code = 1018) 0.9 % RETICULOCYTE [id number] 00:00:00 Test Item Value Reference Range Interpretation Comments RETICULOCYTE COUNT (test code = 1018) 0.9 % IRON BINDING CAPACITY AND IRON AND % [id number] 00:00:00 Test Item Value Reference Range Interpretation Comments IRON, SERUM (test code = 2222) 82 UG/DL UNSATURATED IBC (test code = 55080) 296 UG/DL CALCULATED TOTAL IBC (test code = 378 UG/DL 2076) CALCULATED % IRON SAT (test code = 22 % 2078) IRON BINDING CAPACITY AND IRON AND % [id number] 00:00:00 Test Item Value Reference Range Interpretation Comments IRON, SERUM (test code = 2222) 82 UG/DL UNSATURATED IBC (test code = 30975) 296 UG/DL CALCULATED TOTAL IBC (test code = 378 UG/DL 2076) CALCULATED % IRON SAT (test code = 22 % 2078) CBC W/AUTO [id number] 00:00:00 Test Item Value Reference Range Interpretation [...] code = 1015) 233 K/UL CBC W/AUTO [id number] 00:00:00 Test Item Value Reference Range Interpretation [...] code = 1015) 233 K/UL CBC W/AUTO [id number] 00:00:00 Test Item Value Reference Range Interpretation [...] COUNT (test code = 1015) 233 K/UL VITAMIN B 12 AND FOLIC [id number] 00:00:00 Test Item Value Reference Range Interpretation Comments VITAMIN B-12 (test code = 2840) 764 PG/ML FOLIC ACID (test code = 2695) 18.6 NG/ML VITAMIN B 12 AND FOLIC [id number] 00:00:00 Test Item Value Reference Range Interpretation Comments VITAMIN B-12 (test code = 2840) 764 PG/ML FOLIC ACID (test code = 2695) 18.6 NG/ML [id number] 00:00:00 Test Item Value Reference Range Interpretation Comments FERRITIN (test code = 2075) 36 NG/ML [id number] 00:00:00 Test Item Value Reference Range Interpretation Comments FERRITIN (test code = 2075) 36 NG/ML RETICULOCYTE [id number] 00:00:00 Test Item Value Reference Range Interpretation Comments RETICULOCYTE COUNT (test code = 1018) 0.9 % RETICULOCYTE [id number] 00:00:00 Test Item Value Reference Range Interpretation Comments RETICULOCYTE COUNT (test code = 1018) 0.9 % IRON BINDING CAPACITY AND IRON AND % [id number] 00:00:00 Test Item Value Reference Range Interpretation Comments IRON, SERUM (test code = 2222) 82 UG/DL UNSATURATED IBC (test code = 09252) 296 UG/DL CALCULATED TOTAL IBC (test code = 378 UG/DL 2076) CALCULATED % IRON SAT (test code = 22 % 2078) IRON BINDING CAPACITY AND IRON AND % [id number] 00:00:00 Test Item Value Reference Range Interpretation Comments IRON, SERUM (test code = 2222) 82 UG/DL UNSATURATED IBC (test code = 42574) 296 UG/DL CALCULATED TOTAL IBC (test code = 378 UG/DL 2076) CALCULATED % IRON SAT (test code = 22 % 2078) CBC W/AUTO [id number] 00:00:00 Test Item Value Reference Range Interpretation [...] code = 1015) 233 K/UL CBC W/AUTO [id number] 00:00:00 Test Item Value Reference Range Interpretation [...] code = 1015) 233 K/UL CBC W/AUTO [id number] 00:00:00 Test Item Value Reference Range Interpretation [...] COUNT (test code = 1015) 233 K/UL VITAMIN B 12 AND FOLIC [id number] 00:00:00 Test Item Value Reference Range Interpretation Comments VITAMIN B-12 (test code = 2840) 764 PG/ML FOLIC ACID (test code = 2695) 18.6 NG/ML VITAMIN B 12 AND FOLIC [id number] 00:00:00 Test Item Value Reference Range Interpretation Comments VITAMIN B-12 (test code = 2840) 764 PG/ML FOLIC ACID (test code = 2695) 18.6 NG/ML VITAMIN B 12 AND FOLIC [id number] 00:00:00 Test Item Value Reference Range Interpretation Comments VITAMIN B-12 (test code = 2840) 764 PG/ML FOLIC ACID (test code = 2695) 18.6 NG/ML [id number] 00:00:00 Test Item Value Reference Range Interpretation Comments FERRITIN (test code = 2075) 36 NG/ML [id number] 00:00:00 Test Item Value Reference Range Interpretation Comments FERRITIN (test code = 2075) 36 NG/ML VITAMIN B 12 AND FOLIC [id number] 00:00:00 Test Item Value Reference Range Interpretation Comments VITAMIN B-12 (test code = 2840) 764 PG/ML FOLIC ACID (test code = 2695) 18.6 NG/ML RETICULOCYTE [id number] 00:00:00 Test Item Value Reference Range Interpretation Comments RETICULOCYTE COUNT (test code = 1018) 0.9 % RETICULOCYTE [id number] 00:00:00 Test Item Value Reference Range Interpretation Comments RETICULOCYTE COUNT (test code = 1018) 0.9 % IRON BINDING CAPACITY AND IRON AND % [id number] 00:00:00 Test Item Value Reference Range Interpretation Comments IRON, SERUM (test code = 2222) 82 UG/DL UNSATURATED IBC (test code = 29041) 296 UG/DL CALCULATED TOTAL IBC (test code = 378 UG/DL 2076) CALCULATED % IRON SAT (test code = 22 % 2078) IRON BINDING CAPACITY AND IRON AND % [id number] 00:00:00 Test Item Value Reference Range Interpretation Comments IRON, SERUM (test code = 2222) 82 UG/DL UNSATURATED IBC (test code = 35230) 296 UG/DL CALCULATED TOTAL IBC (test code = 378 UG/DL 2076) CALCULATED % IRON SAT (test code = 22 % 2078) CBC W/AUTO [id number] 00:00:00 Test Item Value Reference Range Interpretation [...] code = 1015) 233 K/UL CBC W/AUTO [id number] 00:00:00 Test Item Value Reference Range Interpretation [...] code = 1015) 233 K/UL CBC W/AUTO [id number] 00:00:00 Test Item Value Reference Range Interpretation [...] COUNT (test code = 1015) 233 K/UL [id number] 00:00:00 Test Item Value Reference Range Interpretation Comments FERRITIN (test code = 2074) 36 NG/ML [id number] 00:00:00 Test Item Value Reference Range Interpretation Comments FERRITIN (test code = 2074) 36 NG/ML RETICULOCYTE [id number] 00:00:00 Test Item Value Reference Range Interpretation Comments RETICULOCYTE COUNT (test code = 1018) 0.9 % RETICULOCYTE [id number] 00:00:00 Test Item Value Reference Range Interpretation Comments RETICULOCYTE COUNT (test code = 1018) 0.9 % IRON BINDING CAPACITY AND IRON AND % [id number] 00:00:00 Test Item Value Reference Range Interpretation Comments IRON, SERUM (test code = 2222) 82 UG/DL UNSATURATED IBC (test code = ) 296 UG/DL CALCULATED TOTAL IBC (test code = 378 UG/DL 2076) CALCULATED % IRON SAT (test code = 22 % 2078) IRON BINDING CAPACITY AND IRON AND % [id number] 00:00:00 Test Item Value Reference Range Interpretation Comments IRON, SERUM (test code = 2222) 82 UG/DL UNSATURATED IBC (test code = 19327) 296 UG/DL CALCULATED TOTAL IBC (test code = 378 UG/DL 2076) CALCULATED % IRON SAT (test code = 22 % 2078) CBC W/AUTO [id number] 00:00:00 Test Item Value Reference Range Interpretation [...] code = 1015) 233 K/UL CBC W/AUTO [id number] 00:00:00 Test Item Value Reference Range Interpretation [...] code = 1015) 233 K/UL CBC W/AUTO [id number] 00:00:00 Test Item Value Reference Range Interpretation [...] COUNT (test code = 1015) 233 K/UL VITAMIN B 12 AND FOLIC [id number] 00:00:00 Test Item Value Reference Range Interpretation Comments VITAMIN B-12 (test code = 2840) 764 PG/ML FOLIC ACID (test code = 2695) 18.6 NG/ML VITAMIN B 12 AND FOLIC [id number] 00:00:00 Test Item Value Reference Range Interpretation Comments VITAMIN B-12 (test code = 2840) 764 PG/ML FOLIC ACID (test code = 2695) 18.6 NG/ML [id number] 00:00:00 Test Item Value Reference Range Interpretation Comments FERRITIN (test code = 5) 36 NG/ML [id number] 00:00:00 Test Item Value Reference Range Interpretation Comments FERRITIN (test code = 2075) 36 NG/ML RETICULOCYTE [id number] 00:00:00 Test Item Value Reference Range Interpretation Comments RETICULOCYTE COUNT (test code = 1018) 0.9 % RETICULOCYTE [id number] 00:00:00 Test Item Value Reference Range Interpretation Comments RETICULOCYTE COUNT (test code = 1018) 0.9 % IRON BINDING CAPACITY AND IRON AND % [id number] 00:00:00 Test Item Value Reference Range Interpretation Comments IRON, SERUM (test code = 2222) 82 UG/DL UNSATURATED IBC (test code = ) 296 UG/DL CALCULATED TOTAL IBC (test code = 378 UG/DL 2076) CALCULATED % IRON SAT (test code = 22 % 2078) IRON BINDING CAPACITY AND IRON AND % [id number] 00:00:00 Test Item Value Reference Range Interpretation Comments IRON, SERUM (test code = 2222) 82 UG/DL UNSATURATED IBC (test code = 07866) 296 UG/DL CALCULATED TOTAL IBC (test code = 378 UG/DL 2076) CALCULATED % IRON SAT (test code = 22 % 2078) CBC W/AUTO [id number] 00:00:00 Test Item Value Reference Range Interpretation [...] code = 1015) 233 K/UL CBC W/AUTO [id number] 00:00:00 Test Item Value Reference Range Interpretation [...] code = 1015) 233 K/UL CBC W/AUTO [id number] 00:00:00 Test Item Value Reference Range Interpretation [...] COUNT (test code = 1015) 233 K/UL VITAMIN B 12 AND FOLIC [id number] 00:00:00 Test Item Value Reference Range Interpretation Comments VITAMIN B-12 (test code = 2840) 764 PG/ML FOLIC ACID (test code = 2695) 18.6 NG/ML VITAMIN B 12 AND FOLIC [id number] 00:00:00 Test Item Value Reference Range Interpretation Comments VITAMIN B-12 (test code = 2840) 764 PG/ML FOLIC ACID (test code = 2695) 18.6 NG/ML [id number] 00:00:00 Test Item Value Reference Range Interpretation Comments FERRITIN (test code = 2074) 36 NG/ML [id number] 00:00:00 Test Item Value Reference Range Interpretation Comments FERRITIN (test code = 2074) 36 NG/ML RETICULOCYTE [id number] 00:00:00 Test Item Value Reference Range Interpretation Comments RETICULOCYTE COUNT (test code = 1018) 0.9 % RETICULOCYTE [id number] 00:00:00 Test Item Value Reference Range Interpretation Comments RETICULOCYTE COUNT (test code = 1018) 0.9 % IRON BINDING CAPACITY AND IRON AND % [id number] 00:00:00 Test Item Value Reference Range Interpretation Comments IRON, SERUM (test code = 2) 82 UG/DL UNSATURATED IBC (test code = ) 296 UG/DL CALCULATED TOTAL IBC (test code = 378 UG/DL 2076) CALCULATED % IRON SAT (test code = 22 % 2078) IRON BINDING CAPACITY AND IRON AND % [id number] 00:00:00 Test Item Value Reference Range Interpretation Comments IRON, SERUM (test code = 2222) 82 UG/DL UNSATURATED IBC (test code = 70499) 296 UG/DL CALCULATED TOTAL IBC (test code = 378 UG/DL 2076) CALCULATED % IRON SAT (test code = 22 % 2078) CBC W/AUTO [id number] 00:00:00 Test Item Value Reference Range Interpretation [...] code = 1015) 233 K/UL CBC W/AUTO [id number] 00:00:00 Test Item Value Reference Range Interpretation [...] code = 1015) 233 K/UL CBC W/AUTO [id number] 00:00:00 Test Item Value Reference Range Interpretation [...] COUNT (test code = 1015) 233 K/UL VITAMIN B 12 AND FOLIC [id number] 00:00:00 Test Item Value Reference Range Interpretation Comments VITAMIN B-12 (test code = 2840) 764 PG/ML FOLIC ACID (test code = 2695) 18.6 NG/ML VITAMIN B 12 AND FOLIC [id number] 00:00:00 Test Item Value Reference Range Interpretation Comments VITAMIN B-12 (test code = 2840) 764 PG/ML FOLIC ACID (test code = 2695) 18.6 NG/ML [id number] 00:00:00 Test Item Value Reference Range Interpretation Comments FERRITIN (test code = 2075) 36 NG/ML [id number] 00:00:00 Test Item Value Reference Range Interpretation Comments FERRITIN (test code = 2075) 36 NG/ML
[2022-08-25 17:06] LABS: Absolute Lymphocytes (CBC) 2.7 K/uL (0.7-4.9); Hematocrit 43.1 % (36.0-45.0); Lymphocytes % 37.3 % (15.3-44.8); MCV 89.1 fL (80-100); MPV 9.1 fL (7.6-11.3); RBC Red Blood Cell Count 4.84 M/uL (3.86-4.86)
[2022-08-25 17:13] LABS: Protime INR 0.87
[2022-08-25 17:28] LABS: BUN Blood Urea Nitrogen 11 mg/dL (7-18); Bicarbonate 28 mEq/L (21-32); Glomerular Filtration Rate 97 ml/min (=/>90); Potassium 3.9 mEq/L (3.5-5.1); Sodium Level 127 mEq/L (136-145)
[2022-08-25 17:29] LABS: Magnesium 1.7 mg/dL (1.6-2.4); Troponin High Sensitivity < 3.0 pg/mL (<58.9)
[2022-08-25 17:30] LABS: Glucose Level 596 mg/dL (74-106)
--- NOTE | 2022-08-25 17:49 | RAD REPORT ---
EXAM DESCRIPTION: [place] Single View08/25/2022 5:17 pm CLINICAL HISTORY: Chest pain/back pain COMPARISON: 2021 FINDINGS: The lungs appear clear of acute infiltrate. The heart is normal size IMPRESSION: No acute abnormalities displayed
[2022-08-25] MEDS ORDERED: INSULIN -REGULAR HUMAN 50 UNIT/0.5 ML ML ONE (18:33)
[2022-08-25] MEDS ORDERED: NA CHLORIDE 0.9% 1,000 ML ONE (18:36)
--- NOTE | 2022-08-25 19:36 | RAD REPORT ---
EXAM DESCRIPTION: US - UPPER EXTREMITY VENOUS UNILATE - 08/25/2022 7:08 pm CLINICAL HISTORY: Right upper extremity pain COMPARISON: None. FINDINGS: The right internal jugular, subclavian, brachial, axillary, cephalic, basilic, radial and ulnar veins demonstrate phasic signal. The veins are generally compressible. Doppler demonstrates good flow IMPRESSION: No evidence of thrombus involving the right upper extremity
--- NOTE | 2022-08-25 21:00 | ER ---
Nurse's Notes [facility] Name: Jodee Rae Age: 42 yrs Sex: Female : 1980 Arrival Date: 08/25/2022 Time: 15:45 Bed 20 Private MD: Diagnosis: Diabetes mellitus due to underlying condition with hyperglycemia;Dorsalgia, unspecified;Pain in right arm Presentation: 08/25 16:25 Chief complaint: Patient states: upper back pain, intermittent SOB x 2 weeks ago. aa5 16:25 Initial Sepsis Screen: Does the patient meet any 2 criteria? HR > 90 bpm. Does the aa5 patient have a suspected source of infection? No. Patient's initial sepsis screen is negative. Risk Assessment: Do you want to hurt yourself or someone else? Patient reports no desire to harm self or others. Onset of symptoms was August 2022. 16:25 Acuity: GERTRUDIS 3 aa5 16:25 Method Of Arrival: Ambulatory aa5 16:25 Coronavirus screen: At this time, the client does not indicate any symptoms associated aa5 with coronavirus-19. Ebola Screen: Patient denies travel to an Ebola-affected area in the 21 days before illness onset. Triage Assessment: 21:13 General: Appears in no apparent distress. Behavior is agitated, fussy. EENT: No lg3 deficits noted. Neuro: Min Agitation-Sedation Scale (RASS): +2 Agitated Level of Consciousness is awake, alert. Cardiovascular: No deficits noted. Respiratory: No deficits noted. Airway is patent Respiratory effort is even, unlabored, Respiratory pattern is regular, symmetrical. GI: No deficits noted. : No deficits noted. Derm: No deficits noted. Skin is intact, is healthy with good turgor, Skin is dry, Skin is normal. Musculoskeletal: No deficits noted. Circulation, motion, and sensation intact. Range of motion: intact in all extremities. Historical: - Allergies: 16:25 Lisinopril; cough; aa5 16:25 Kiron Carbonate; aa5 16:25 PENICILLINS (Upset stomach); aa5 - PMHx: 16:25 Asthma; Bipolar disorder; Depression; Diabetes - IDDM; aa5 - PSHx: 16:25 section; hand; tubal ligation; aa5 Assessment: 20:41 General: pt placed in room and began to holler stating she was going home and didn't lg3 want anyone touching her. provider notified. 21:09 General: pt walked out of ED. provider stopped pt at door and notified her that we lg3 would need to take out her IV. pt stated that nobody was touching her. provider then notified pt that if she refused to let someone remove her IV that the police department would need to be notified. pt complied and let staff remove IV and left the ER.. 21:12 Neuro: No deficits noted. Min Agitation-Sedation Scale (RASS): +2 Agitated Level lg3 of Consciousness is awake, alert. Cardiovascular: No deficits noted. Respiratory: Airway is patent Respiratory effort is even, unlabored, Respiratory pattern is regular, symmetrical. Vital Signs: 16:25 BP 107 / 68; Pulse 114; Resp 18 S; Temp 98.3(TE); Pulse Ox 97% on R/A; aa5 ED Course: 15:45 Patient arrived in ED. am2 15:52 Tyrone Joseph PA is PHCP. cp 15:52 Tyrone Sotomayor MD is Attending Physician. cp 16:25 Arm band placed on. aa5 16:47 Triage completed. aa5 16:59 Inserted saline lock: 20 gauge in left antecubital area, using aseptic technique. Blood zm collected. 17:00 Basic Metabolic Panel Sent. zm 17:00 CBC with Diff Sent. zm 17:00 Magnesium Sent. zm 17:00 PT-INR Sent. zm 17:00 Troponin HS Sent. zm 17:19 XRAY Chest (1 view) In Process Unspecified. EDMS 17:43 D-Dimer Sent. zm 18:38 Tracey Rausch, RN is Primary Nurse. iw 19:09 UPPER EXTREMITY VENOUS UNILATE In Process Unspecified. EDMS 20:43 CT Chest For PE Angio In Process Unspecified. EDMS 21:14 IV discontinued, intact, bleeding controlled, No redness/swelling at site. Pressure lg3 dressing applied. Administered Medications: 18:37 Drug: NS 0.9% IV 1000 ml Route: IV; Rate: 1 bolus; Site: right antecubital; iw 19:30 Follow up: IV Status: Completed infusion iw 18:46 Drug: Insulin Regular Human IVP 10 units {Co-Signature: aa5 (Odilia Triana RN).} iw Route: IVP; Site: right antecubital; 21:07 Not Given (Patient Refused): Ketorolac IVP 15 mg IVP once lg3 Medication: 21:14 VIS not applicable for this client. lg3 Outcome: 21:00 Discharge ordered by MD. hsieh 21:14 Discharged to home ambulatory. lg3 21:14 Condition: stable 21:15 Patient left the ED. lg3 Signatures: Dispatcher [employer] EDTracey Bingham RN RN iw Calderon, Audri, RN RN aa5 Tyrone Joseph PA PA cp Moreno, Amanda am2 Gibson, Lacie, RN RN lg3 Claudia Garsia Audri RN aa5 Corrections: (The following items were deleted from the chart) 16:47 16:25 Initial Sepsis Screen: Does the patient meet any 2 criteria? No. Patient's aa5 initial sepsis screen is negative. Does the patient have a suspected source of infection? No. Patient's initial sepsis screen is negative. aa5
--- NOTE | 2022-08-25 21:01 | EDPHYS ---
Physician Documentation [facility] Name: Jodee Rae Age: 42 yrs Sex: Female : 1980 Arrival Date: 08/25/2022 Time: 15:45 Bed 20 Private MD: ED Physician Tyrone Sotomayor HPI: 08/25 16:25 This 42 yrs old Female presents to ER via Ambulatory with complaints of cp Breathing Difficulty, Back Pain, Abdominal Pain, Hand Pain. 16:25 The patient has shortness of breath with light activity. cp 16:25 Onset: The symptoms/episode began/occurred 2 week(s) ago. Duration: The symptoms are cp intermittent. 16:25 The patient's shortness of breath is aggravated by light activity. Associated signs and cp symptoms: Pertinent positives: chest pain, non-productive cough, right upper back pain and right arm pain and right hand pain and abdomen pain, Pertinent negatives: diaphoresis, fever, visual changes, vomiting. Severity of symptoms: in the emergency department the symptoms are unchanged despite home interventions. Historical: - Allergies: 16:25 Lisinopril; cough; aa5 16:25 Jenner Carbonate; aa5 16:25 PENICILLINS (Upset stomach); aa5 - PMHx: 16:25 Asthma; Bipolar disorder; Depression; Diabetes - IDDM; aa5 - PSHx: 16:25 section; hand; tubal ligation; aa5 ROS: 16:30 Constitutional: Positive for body aches, Negative for fever, poor PO intake. cp 16:30 Eyes: Negative for injury, pain, redness, and discharge. cp 16:30 ENT: Negative for drainage from ear(s), ear pain, sore throat, difficulty swallowing, difficulty handling secretions. 16:30 Neck: Negative for injury or acute deformity, stiffness. 16:30 Cardiovascular: Positive for chest pain, Negative for edema, orthopnea, palpitations. 16:30 Respiratory: Positive for cough, shortness of breath, Negative for wheezing. 16:30 Abdomen/GI: Positive for abdominal pain, nausea, Negative for vomiting, diarrhea, constipation, black/tarry stool, rectal bleeding. 16:30 Back: Positive for pain at rest, pain with movement. 16:30 MS/extremity: Positive for pain, of the right hand and right arm, Negative for injury or acute deformity. 16:30 Skin: Negative for cellulitis, rash. 16:30 Neuro: Positive for weakness, Negative for altered mental status, headache, numbness, syncope. 16:30 All other systems are negative. Exam: 16:35 Constitutional: The patient appears in no acute distress, alert, awake, cp non-diaphoretic, non-toxic, well developed, well nourished, uncomfortable. 16:35 Head/Face: Normocephalic, atraumatic. cp 16:35 Eyes: Periorbital structures: appear normal, Pupils: equal, round, and reactive to light and accomodation, Extraocular movements: intact throughout, Conjunctiva: normal, no exudate, no injection, Sclera: no appreciated abnormality, Lids and lashes: appear normal, bilaterally. 16:35 ENT: External ear(s): are unremarkable, Nose: is normal, Mouth: Lips: moist, Oral mucosa: pink and intact, moist, Posterior pharynx: is normal, airway is patent, no erythema, no exudate. 16:35 Neck: C-spine: vertebral tenderness, is not appreciated, crepitus, is not appreciated, ROM/movement: is normal, is supple, without pain, no range of motions limitations. 16:35 Chest/axilla: Inspection: normal, Palpation: is normal, no crepitus, no tenderness. 16:35 Cardiovascular: Rate: tachycardic, Rhythm: regular, Edema: is not appreciated, JVD: is not appreciated. 16:35 Respiratory: the patient does not display signs of respiratory distress, Respirations: normal, no use of accessory muscles, no retractions, labored breathing, is not present, Breath sounds: are clear throughout, no decreased breath sounds, no stridor, no wheezing. 16:35 Abdomen/GI: Inspection: abdomen appears normal, Bowel sounds: active, all quadrants, Palpation: soft, in all quadrants, mild abdominal tenderness, in all quadrants, rebound tenderness, is not appreciated, involuntary guarding, is not appreciated. 16:35 Back: pain, that is mild, of the right scapular area and right subscapular area, ROM is painful, with all movement. 16:35 Musculoskeletal/extremity: Extremities: grossly normal except: noted in the right hand and right arm: pain, tenderness, ROM: intact in all extremities, Pulses: noted to be 2+ in the right radial artery and left radial artery, Sensation intact. 16:35 Skin: cellulitis, is not appreciated, no rash present. 16:35 Neuro: Orientation: to person, place \T\ time. Mentation: is normal, Cerebellar function: is grossly normal, Motor: moves all fours, strength is normal, Sensation: no obvious gross deficits, Gait: is steady, at a normal pace, without difficulty. Vital Signs: 16:25 BP 107 / 68; Pulse 114; Resp 18 S; Temp 98.3(TE); Pulse Ox 97% on R/A; aa5 MDM: 16:09 Patient medically screened. bre 20:57 ED course: VS noted. Patient refusing any further treatment and requesting discharge at this time. I am awaiting results of CT chest for PE, to recheck blood glucose. Patient wants to f/u with pcp. Patient understands risk of missed diagnosis and is able to make informed decisions. 20:59 Data reviewed: vital signs, nurses notes, lab test result(s), EKG, radiologic studies, cp CT scan, plain films, ultrasound, and as a result, I will discharge patient. 20:59 Differential diagnosis: Myocardial Infarction pneumonia, Pneumothorax pulmonary edema, cp Pulmonary Embolism Sepsis Unstable Angina. Counseling: I had a detailed discussion with the patient and/or guardian regarding: the historical points, exam findings, and any diagnostic results supporting the discharge/admit diagnosis, lab results, radiology results, the need for outpatient follow up, a family practitioner, to return to the emergency department if symptoms worsen or persist or if there are any questions or concerns that arise at home. Response to treatment: the patient's symptoms have mildly improved after treatment. Special discussion: Based on the patient's history, exam, and Dx evaluation, there is no indication for emergent intervention or inpatient Tx. It is understood by the patient/guardian that if the Sx's persist or worsen they need to return immediately for re-evaluation. Based on the patient's Hx, exam, and Dx evaluation, there is no indication for emergent surgery or inpatient Tx. It is understood by the patient/guardian that if the Sx's persist or worsen they need to return immediately for re-evaluation. 08/25 16:10 Order name: Basic Metabolic Panel; Complete Time: 17:35 cp 08/25 17:36 Interpretation: Normal except: GLUC 596; CL 93; NA 127. cp 08/25 16:10 Order name: CBC with Diff; Complete Time: 17:35 cp 08/25 17:36 Interpretation: Normal except: HGB 15.3; Reviewed. cp 08/25 16:10 Order name: Magnesium; Complete Time: 17:35 cp 08/25 16:10 Order name: PT-INR; Complete Time: 17:35 cp 08/25 16:10 Order name: Troponin HS; Complete Time: 17:35 cp 08/25 17:21 Order name: D-Dimer; Complete Time: 19:39 cp 08/25 19:39 Interpretation: Reviewed. 08/25 16:10 Order name: XRAY Chest (1 view); Complete Time: 19:39 cp 08/25 18:37 Order name: UPPER EXTREMITY VENOUS UNILATE; Complete Time: 19:39 EDMS 08/25 19:40 Order name: CT Chest For PE Angio 08/25 16:10 Order name: EKG; Complete Time: 16:11 08/25 16:10 Order name: Cardiac monitoring 08/25 16:10 Order name: EKG - Nurse/Tech 08/25 16:10 Order name: IV Saline Lock; Complete Time: 16:59 cp 08/25 16:10 Order name: Labs collected and sent; Complete Time: 16:59 08/25 16:10 Order name: O2 Per Protocol 08/25 16:10 Order name: O2 Sat Monitoring cp Administered Medications: 18:37 Drug: NS 0.9% IV 1000 ml Route: IV; Rate: 1 bolus; Site: right antecubital; iw 19:30 Follow up: IV Status: Completed infusion iw 18:46 Drug: Insulin Regular Human IVP 10 units {Co-Signature: aa5 (Odilia Triana RN).} iw Route: IVP; Site: right antecubital; 21:07 Not Given (Patient Refused): Ketorolac IVP 15 mg IVP once lg3 Disposition Summary: 08/25/22 21:00 Discharge Ordered Location: Home cp Problem: new cp Symptoms: have improved cp Condition: Stable cp Diagnosis - Diabetes mellitus due to underlying condition with hyperglycemia cp - Dorsalgia, unspecified cp - Pain in right arm cp Followup: cp - With: Private Physician - When: 1 - 2 days - Reason: Recheck today's complaints Discharge Instructions: - Discharge Summary Sheet cp - Acute Back Pain, Adult cp - Hyperglycemia cp - Musculoskeletal Pain cp - Daily Diabetes Mellitus Record cp - Blood Glucose Monitoring, Adult cp - Diabetes Mellitus and Nutrition, Adult cp Forms: - Medication Reconciliation Form cp - Thank You Letter cp - Antibiotic Education cp - Prescription Opioid Use cp Prescriptions: - Ibuprofen 800 mg Oral Tablet - take 1 tablet by ORAL route every 8 hours As needed take with food; 30 tablet; cp Refills: 0, Product Selection Permitted - Metformin 1,000 mg Oral Tablet - take 0.5 tablet by ORAL route every 12 hours with morning and evening meals; 20 cp tablet; Refills: 0, Product Selection Permitted Signatures: Dispatcher [employer] EDMS Tyrone Sotomayor MD MD cha Williams, Irene RN FRANKIE iw Odilia Triana, RN RN aa5 Tyrone Joseph PA PA cp Gisell Medrano RN lg3 Odilia Triana RN aa5 Corrections: (The following items were deleted from the chart) 17:36 17:36 Reviewed. cp cp 18:37 17:20 Extremity Venous Uni [email or web address] ordered. EDMS EDMS 21:07 19:40 Accucheck Blood Glucose ordered. cp lg3
--- NOTE | 2022-08-25 21:08 | RAD REPORT ---
EXAM DESCRIPTION: CT - Chest For Pe Angio - 08/25/2022 8:41 pm CLINICAL HISTORY: sob COMPARISON: 2013 TECHNIQUE: Dynamically enhanced axial 3 mm thick images of the chest were obtained during administra tion of 95 mL Isovue 370 IV contrast. Coronal and oblique reconstruction images were generated and re viewed. Exam utilizes a protocol for optimal evaluation of pulmonary arterial tree. Maximum intensity projections 3D imaging was utilized All CT scans are performed using dose optimization technique as appropriate and may include automated exposure control or mA/KV adjustment according to patient size. FINDINGS: The opacification of the pulmonary arteries is mildly suboptimal A pulmonary embolus is not seen. A thoracic aortic aneurysm is not noted. Bovine aorta A pleural effusion is not seen. A pericardial effusion is not seen. A lung consolidation is not present. IMPRESSION: No evidence of pulmonary embolism
[2022-08-26 06:20] VITALS: TEMP 98.3; O2SAT 97
[2022-08-26 06:24] VITALS: BP 146/86
== END 2022-08-25 21:15 | disposition home or self-care (01) ==
LOC: ER 15:43
DX: E11.65 Type 2 diabetes mellitus with hyperglycemia (principal); M54.9 Dorsalgia, unspecified; M79.601 Pain in right arm; Z88.0 Allergy status to penicillin; Z88.8 Allergy status to other drugs, medicaments and biological substances
CPT/HCPCS: 85025; 80048; 36415; 83735; 85610; 85379; 84484; 71275; 71045; 93971; Q9967; J1815; J7030

== ENCOUNTER 2024-11-01 11:51 | Emergency (ER) | payer OTHER, SELFPAY ==
--- OUTSIDE RECORDS SUMMARY | 2024-11-01 12:10 | XMS REPORT | Continuity of Care Document ---
Author Name Unknown Address [address] [facility] [place] [address] Organization [facility] [place] Address [address] [facility] [address] [place] [address] Care Team Providers Care Roof Slater Name Role Phone Dania Velazquez Primary Care Physician Baldomero Ortiz DO Attending Clinician Payers Payer Name Policy Type Policy Number Effective Date Expirati on Date Source Problems Condition Name Condition Details Condition Category Status Onset Date Resolution Date Last Treatment Date Treating Clinician Comments Source Other general counseling and advice for contracept riri management Other general counseling and advice for contracept riri management Disease Active 2018-06 00:00: 00 [facility] History of tubal ligation History of tubal ligation Disease Active 2018-06 00:00: 00 [facility] History of hypertensi on History of hypertensi on Disease Active 2018-06 00:00: 00 [facility] Obesity (BMI 30-39.9) Obesity (BMI 30-39.9) Disease Active 01-21 00:00: 00 [facility] Diabetes type 2, uncontroll ed Diabetes type 2, uncontroll ed Disease Active 08-31 00:00: 00 [facility] Cervical polyp Cervical polyp Disease Active 2016-06 00:00: 00 [facility] History of drug abuse History of drug abuse Disease Active 02-23 00:00: 00 [facility] History of alcohol abuse History of alcohol abuse Disease Active 02-23 00:00: 00 [facility] Depression , unspecifie d depression type Depression , unspecifie d depression type Disease Active 02-23 00:00: 00 [facility] Bipolar affective disorder, remission status unspecifie d Bipolar affective disorder, remission status unspecifie d Disease Active 02-23 00:00: 00 [facility] History of tobacco use History of tobacco use Disease Active 02-23 00:00: 00 [facility] Allergies, Adverse Reactions, Alerts Allergy Name Allergy Type Status Severity Reaction(s) Onset Date Inactive Date Treating Clinician Comments Source n Propensi ty to adverse reaction to drug Active 5-26 00:00: 00 Lisinopr il - Oral Propensi ty to adverse reaction to drug Active 3-23 00:00: 00 [place] Propensi ty to adverse reaction s Active Rash 7 00:00: 00 [facility] Lisinopr il Propensi ty to adverse reaction s Active Cough 02-23 00:00: 00 [facility] Social History Social Habit Start Date Stop Date Quantity Comments Source Cigarette pack-years 2019-05-10 00:00:00 2019-05-10 00:00:00 [facility] Tobacco use and exposure 2019-05-10 00:00:00 2019-05-10 00:00:[address] [facility] Alcohol intake 2019-05-10 00:00:00 2019-05-10 00:00:00 Current non-drinker of alcohol (finding) [facility] Cigarettes smoked current (pack per day) - Reported 2019-05-10 00:00:00 2019-05-10 00:00:00 [facility] History of tobacco use 2017-02-20 00:00:[address] [facility] Sex Assigned At 1980 00:00:00 1980 00:00:00 [facility] Smoking Status Start Date Stop Date Source Current every day smoker 2019-05-10 00:00:00 [facility] Medications Ordered Medication Name Filled Medication Name Start Date Stop Date Current Medication? Ordering Clinician Indication Dosage Frequency Signature (SIG) Comments Components Source LANTUS SOLOS INJ 100/ML 2-0 9-20 00:00: 00 No LANTUS SOLOS INJ 100/ML 2-0 9-20 00:00: 00 No LANTUS SOLOS INJ 100/ML 2-0 9-20 00:00: 00 No TAKE 1 TABLET DAILY DIRECTED. 2-0 8-24 00:00: 00 No TAKE 1 TABLET DAILY DIRECTED. 2-0 8-24 00:00: 00 No TAKE 1 TABLET DAILY DIRECTED. 2-0 8-24 00:00: 00 No 10 TAKE 1 TABLET DAILY DIRECTED. 2-0 8-24 00:00: 00 No &lt 2022-0 8-16 00:00: 00 No 250 &lt 2022-0 8-16 00:00: 00 No &lt 2022-0 8-16 00:00: 00 No 250 &lt 2022-0 8-16 00:00: 00 No &lt 2022-0 8-16 00:00: 00 No 250 &lt 2022-0 8-16 00:00: 00 No &lt 2022-0 8-16 00:00: 00 No 250 &lt 2022-0 8-16 00:00: 00 No ondansetron 4 mg disintegrat ing tablet 2-0 7-20 00:00: 00 No 1mg TAKE 1 CAPSULE BY MOUTH EVERY 8 HOURS NEEDED 2022-0 7-20 00:00: 00 No 200 INHALE 2 PUFFS BY MOUTH EVERY 4 TO 6 HOURS NEEDED 2022-0 7-20 00:00: 00 No &lt 2022-0 7-20 00:00: 00 No ondansetron 4 mg disintegrat ing tablet 2-0 7-20 00:00: 00 No 1mg TAKE 1 CAPSULE BY MOUTH EVERY 8 HOURS NEEDED 2022-0 7-20 00:00: 00 No 200 INHALE 2 PUFFS BY MOUTH EVERY 4 TO 6 HOURS NEEDED 2022-0 7-20 00:00: 00 No &lt 2022-0 7-20 00:00: 00 No ondansetron 4 mg disintegrat ing tablet 2022-0 7-20 00:00: 00 No 1mg TAKE 1 CAPSULE BY MOUTH EVERY 8 HOURS NEEDED 2022-0 7-20 00:00: 00 No 200 INHALE 2 PUFFS BY MOUTH EVERY 4 TO 6 HOURS NEEDED 2022-0 7-20 00:00: 00 No &lt 2022-0 7-20 00:00: 00 No ondansetron 4 mg disintegrat ing tablet 2-0 7-20 00:00: 00 No 1mg TAKE 1 CAPSULE BY MOUTH EVERY 8 HOURS NEEDED 2022-0 7-20 00:00: 00 No 200 INHALE 2 PUFFS BY MOUTH EVERY 4 TO 6 HOURS NEEDED 2022-0 7-20 00:00: 00 No &lt 2022-0 7-20 00:00: 00 No ondansetron 4 mg disintegrat ing tablet 2-0 5- 00:00: 00 No 1mg benzonatate 200 mg capsule 2021-0 5- 00:00: 00 No 1mg ondansetron 4 mg disintegrat ing tablet 2-0 5- 00:00: 00 No 1mg benzonatate 200 mg capsule 2-0 5- 00:00: 00 No 1mg ondansetron 4 mg disintegrat ing tablet 2-0 5- 00:00: 00 No 1mg benzonatate 200 mg capsule 2021-0 5- 00:00: 00 No 1mg ondansetron 4 mg disintegrat ing tablet 2-0 5- 00:00: 00 No 1mg benzonatate 200 mg capsule 2021-0 5- 00:00: 00 No 1mg Advair Diskus 100 mcg-50 mcg/dose powder for inhalation 2021-0 3- 00:00: 00 No 1mcg/do se benzonatate 200 mg capsule 2021-0 3-23 00:00: 00 No 1mg Dose Unknown 2021-0 3- 00:00: 00 No Dose Unknown 2021-0 3- 00:00: 00 No Dose Unknown 2021-0 3- 00:00: 00 No Dose Unknown 2021-0 3- 00:00: 00 No Dose Unknown 2021-0 3- 00:00: 00 No Dose Unknown 2022-0 3 00:00: 00 No Dose Unknown 2022-0 3 00:00: 00 No Advair Diskus 100 mcg-50 mcg/dose powder for inhalation 2022-0 3 00:00: 00 No 1mcg/do se benzonatate 200 mg capsule 2-0 3 00:00: 00 No 1mg Dose Unknown 2021-0 3 00:00: 00 No Dose Unknown 2022-0 3 00:00: 00 No Dose Unknown 2-0 3 00:00: 00 No Dose Unknown 2-0 3 00:00: 00 No Dose Unknown 2021-0 3 00:00: 00 No Dose Unknown 2021-0 3 00:00: 00 No Dose Unknown 2021-0 3 00:00: 00 No Advair Diskus 100 mcg-50 mcg/dose powder for inhalation 2-0 3 00:00: 00 No 1mcg/do se benzonatate 200 mg capsule 2021-0 3 00:00: 00 No 1mg Dose Unknown 2021-0 3 00:00: 00 No Dose Unknown 2021-0 3 00:00: 00 No Dose Unknown 2-0 3 00:00: 00 No Dose Unknown 2021-0 3 00:00: 00 No Dose Unknown 2021-0 3 00:00: 00 No Dose Unknown 2-0 3 00:00: 00 No Dose Unknown 2-0 3 00:00: 00 No Advair Diskus 100 mcg-50 mcg/dose powder for inhalation 2021-0 3 00:00: 00 No 1mcg/do se benzonatate 200 mg capsule 2-0 3 00:00: 00 No 1mg Dose Unknown 2-0 3 00:00: 00 No Dose Unknown 2-0 3 00:00: 00 No Dose Unknown 2022-0 3 00:00: 00 No Dose Unknown 2022-0 3 00:00: 00 No Dose Unknown 2-0 3 00:00: 00 No Dose Unknown 2022-0 3 00:00: 00 No Dose Unknown 2022-0 3 00:00: 00 No Dose Unknown 2022-0 3-22 00:00: 00 No Dose Unknown 2022-0 3-22 00:00: 00 No Dose Unknown 2022-0 3-22 00:00: 00 No Dose Unknown 2022-0 3-22 00:00: 00 No Dose Unknown 2022-0 3-22 00:00: 00 No Dose Unknown 2022-0 3-22 00:00: 00 No Dose Unknown 2022-0 3-22 00:00: 00 No Dose Unknown 2022-0 3-22 00:00: 00 No Dose Unknown 2022-0 3-22 00:00: 00 No Dose Unknown 2022-0 3-22 00:00: 00 No Dose Unknown 2022-0 3-22 00:00: 00 No Dose Unknown 2022-0 3-22 00:00: 00 No Dose Unknown 2022-0 3-22 00:00: 00 No Dose Unknown 2022-0 3-22 00:00: 00 No Dose Unknown 2022-0 3-22 00:00: 00 No Dose Unknown 2022-0 3-22 00:00: 00 No Dose Unknown 2022-0 3-22 00:00: 00 No Dose Unknown 2022-0 3-22 00:00: 00 No Dose Unknown 2022-0 3-22 00:00: 00 No Dose Unknown 2022-0 3-22 00:00: 00 No Dose Unknown 2022-0 3-22 00:00: 00 No Dose Unknown 2022-0 3-22 00:00: 00 No Dose Unknown 2022-0 3-22 00:00: 00 No Dose Unknown 2022-0 3-22 00:00: 00 No Dose Unknown 2022-0 3-22 00:00: 00 No Dose Unknown 2022-0 3-22 00:00: 00 No Dose Unknown 2022-0 3-22 00:00: 00 No Dose Unknown 2022-0 3-22 00:00: 00 No Dose Unknown 2022-0 3-21 00:00: 00 No Dose Unknown 2022-0 3-21 00:00: 00 No Dose Unknown 2022-0 3-21 00:00: 00 No Dose Unknown 2022-0 3-21 00:00: 00 No Dose Unknown 2022-0 3-21 00:00: 00 No Dose Unknown 2022-0 3-21 00:00: 00 No Dose Unknown 2022-0 3-21 00:00: 00 No Dose Unknown 2022-0 3-21 00:00: 00 No Dose Unknown 2022-0 3-21 00:00: 00 No Dose Unknown 2022-0 3-21 00:00: 00 No Dose Unknown 2022-0 3-21 00:00: 00 No Dose Unknown 2022-0 3-21 00:00: 00 No Dose Unknown 2022-0 3-21 00:00: 00 No Dose Unknown 2022-0 3-21 00:00: 00 No Dose Unknown 2022-0 3-21 00:00: 00 No Dose Unknown 2022-0 3-21 00:00: 00 No Dose Unknown 2022-0 3-21 00:00: 00 No Dose Unknown 2022-0 3-21 00:00: 00 No Dose Unknown 2022-0 3-21 00:00: 00 No Dose Unknown 2022-0 3-21 00:00: 00 No Dose Unknown 2022-0 3-21 00:00: 00 No Dose Unknown 2022-0 3-21 00:00: 00 No Dose Unknown 2022-0 3-21 00:00: 00 No Dose Unknown 2022-0 3-21 00:00: 00 No Dose Unknown 2022-0 3-21 00:00: 00 No Dose Unknown 2022-0 3-21 00:00: 00 No Dose Unknown 2022-0 3-21 00:00: 00 No Dose Unknown 2022-0 3-21 00:00: 00 No Dose Unknown 2022-0 3-16 00:00: 00 No Dose Unknown 2022-0 3-16 00:00: 00 No Dose Unknown 2022-0 3-16 00:00: 00 No Dose Unknown 2022-0 3-16 00:00: 00 No Dose Unknown 2022-0 3-16 00:00: 00 No Dose Unknown 2022-0 3-16 00:00: 00 No Dose Unknown 2022-0 3-16 00:00: 00 No Dose Unknown 2022-0 3-16 00:00: 00 No Dose Unknown 2022-0 3-16 00:00: 00 No Dose Unknown 2022-0 3-16 00:00: 00 No Dose Unknown 2022-0 3-16 00:00: 00 No Dose Unknown 2022-0 3-16 00:00: 00 No Dose Unknown 2022-0 3-16 00:00: 00 No Dose Unknown 2022-0 3-16 00:00: 00 No Dose Unknown 2022-0 3-16 00:00: 00 No Dose Unknown 2022-0 3-16 00:00: 00 No Dose Unknown 2022-0 3-16 00:00: 00 No Dose Unknown 2022-0 3-16 00:00: 00 No Dose Unknown 2022-0 3-16 00:00: 00 No Dose Unknown 2022-0 3-16 00:00: 00 No Dose Unknown 2022-0 3-16 00:00: 00 No Dose Unknown 2022-0 3-16 00:00: 00 No Dose Unknown 2022-0 3-16 00:00: 00 No Dose Unknown 2022-0 3-16 00:00: 00 No Dose Unknown 2022-0 3-16 00:00: 00 No Dose Unknown 2022-0 3-16 00:00: 00 No Dose Unknown 2022-0 3-16 00:00: 00 No Dose Unknown 2022-0 3-16 00:00: 00 No Dose Unknown 2022-0 3-09 00:00: 00 No Dose Unknown 2022-0 3-09 00:00: 00 No Dose Unknown 2022-0 3-09 00:00: 00 No Dose Unknown 2022-0 3-09 00:00: 00 No Dose Unknown 2022-0 3-09 00:00: 00 No Dose Unknown 2022-0 3-09 00:00: 00 No Dose Unknown 2022-0 3-09 00:00: 00 No Dose Unknown 2022-0 3-09 00:00: 00 No Dose Unknown 2022-0 3-09 00:00: 00 No Dose Unknown 2022-0 3-09 00:00: 00 No Dose Unknown 2022-0 3-09 00:00: 00 No Dose Unknown 2022-0 3-09 00:00: 00 No Dose Unknown 2022-0 3-09 00:00: 00 No Dose Unknown 2022-0 3-09 00:00: 00 No Dose Unknown 2022-0 3-09 00:00: 00 No Dose Unknown 2022-0 3-09 00:00: 00 No Dose Unknown 2022-0 3-09 00:00: 00 No Dose Unknown 2022-0 3-09 00:00: 00 No Dose Unknown 2022-0 3-09 00:00: 00 No Dose Unknown 2022-0 3-09 00:00: 00 No Dose Unknown 2022-0 3-09 00:00: 00 No Dose Unknown 2022-0 3-09 00:00: 00 No Dose Unknown 2022-0 3-09 00:00: 00 No Dose Unknown 2022-0 3-09 00:00: 00 No Dose Unknown 2022-0 3-09 00:00: 00 No Dose Unknown 2022-0 3-09 00:00: 00 No Dose Unknown 2022-0 3-09 00:00: 00 No Dose Unknown 2022-0 3-09 00:00: 00 No Dose Unknown 2022-0 3-04 00:00: 00 No Dose Unknown 2022-0 3-04 00:00: 00 No Dose Unknown 2022-0 3-04 00:00: 00 No Dose Unknown 2022-0 3-04 00:00: 00 No Dose Unknown 2022-0 3-04 00:00: 00 No Dose Unknown 2022-0 3-04 00:00: 00 No Dose Unknown 2022-0 3-04 00:00: 00 No Dose Unknown 2022-0 3-04 00:00: 00 No Dose Unknown 2022-0 3-04 00:00: 00 No Dose Unknown 2022-0 3-04 00:00: 00 No Dose Unknown 2022-0 3-04 00:00: 00 No Dose Unknown 2022-0 3-04 00:00: 00 No Dose Unknown 2022-0 3-04 00:00: 00 No Dose Unknown 2022-0 3-04 00:00: 00 No Dose Unknown 2022-0 3-04 00:00: 00 No Dose Unknown 2022-0 3-04 00:00: 00 No Dose Unknown 2022-0 3-04 00:00: 00 No Dose Unknown 2022-0 3-04 00:00: 00 No Dose Unknown 2022-0 3-04 00:00: 00 No Dose Unknown 2022-0 3-04 00:00: 00 No Dose Unknown 2022-0 3-04 00:00: 00 No Dose Unknown 2022-0 3-04 00:00: 00 No Dose Unknown 2-0 3-04 00:00: 00 No Dose Unknown 2022-0 3-04 00:00: 00 No Dose Unknown 2-0 3-04 00:00: 00 No Dose Unknown 2-0 3-04 00:00: 00 No Dose Unknown 2022-0 3-04 00:00: 00 No Dose Unknown 2-0 3-04 00:00: 00 No Dose Unknown 2-0 2-08 00:00: 00 No Dose Unknown 2-0 2-08 00:00: 00 No Dose Unknown 2-0 2-08 00:00: 00 No Dose Unknown 2-0 2-08 00:00: 00 No Dose Unknown 2-0 2-01 00:00: 00 No Dose Unknown 2-0 2-01 00:00: 00 No Dose Unknown 2-0 2- 00:00: 00 No Dose Unknown 2021-0 2- 00:00: 00 No ondansetron 8 mg disintegrat ing tablet 2-0 1-18 00:00: 00 No 1mg Dose Unknown 2021-0 1-18 00:00: 00 No ondansetron 8 mg disintegrat ing tablet 2-0 1-18 00:00: 00 No 1mg Dose Unknown 2-0 1-18 00:00: 00 No ondansetron 8 mg disintegrat ing tablet 2-0 1-18 00:00: 00 No 1mg Dose Unknown 2-0 1-18 00:00: 00 No ondansetron 8 mg disintegrat ing tablet 2-0 1-18 00:00: 00 No 1mg Dose Unknown 2-0 1-18 00:00: 00 No ProAir HFA 90 mcg/actuati on aerosol inhaler 2021-0 1-14 00:00: 00 No 2mcg/ac tuation ProAir HFA 90 mcg/actuati on aerosol inhaler 2021-0 1-14 00:00: 00 No 2mcg/ac tuation ProAir HFA 90 mcg/actuati on aerosol inhaler 2021-0 1-14 00:00: 00 No 2mcg/ac tuation ProAir HFA 90 mcg/actuati on aerosol inhaler 2021-0 1-14 00:00: 00 No 2mcg/ac tuation Victoza 3-Daniel 0.6 mg/0.1 mL (18 mg/3 mL) subcutaneou s pen injector 2020-06 2-14 00:00: 00 No (18 mg/3 mL) Novolog Flexpen U-100 Insulin aspart 100 unit/mL (3 mL) subcutaneou s 2020-06 2-14 00:00: 00 No 5(3 mL) Lantus Solostar U-100 Insulin 100 unit/mL (3 mL) subcutaneou s pen 2020-06 2-14 00:00: 00 No 10(3 mL) Victoza 3-Daniel 0.6 mg/0.1 mL (18 mg/3 mL) subcutaneou s pen injector 2020-06 2- 00:00: 00 No (18 mg/3 mL) Novolog Flexpen U-100 Insulin aspart 100 unit/mL (3 mL) subcutaneou s 2020-06- 00:00: 00 No 5(3 mL) Lantus Solostar U-100 Insulin 100 unit/mL (3 mL) subcutaneou s pen 2020-06 2- 00:00: 00 No 10(3 mL) Victoza 3-Daniel 0.6 mg/0.1 mL (18 mg/3 mL) subcutaneou s pen injector 2020-06 00:00: 00 No (18 mg/3 mL) Novolog Flexpen U-100 Insulin aspart 100 unit/mL (3 mL) subcutaneou s 2020-06 2-14 00:00: 00 No 5(3 mL) Lantus Solostar U-100 Insulin 100 unit/mL (3 mL) subcutaneou s pen 2020-06 2-14 00:00: 00 No 10(3 mL) Victoza 3-Daniel 0.6 mg/0.1 mL (18 mg/3 mL) subcutaneou s pen injector 2020-06 2-14 00:00: 00 No (18 mg/3 mL) Novolog Flexpen U-100 Insulin aspart 100 unit/mL (3 mL) subcutaneou s 2020-06 2-14 00:00: 00 No 5(3 mL) Lantus Solostar U-100 [facility]3 [facility]-06 2-14 00:00: 00 No 10(3 mL) benzonatate 100 mg capsule 2020-06 1- 00:00: 00 No 1mg benzonatate 100 mg capsule 2020-06 1- 00:00: 00 No 1mg benzonatate 100 mg capsule 2020-06- 00:00: 00 No 1mg benzonatate 100 mg capsule 2020-06 00:00: 00 No 1mg diclofenac sodium 75 mg tablet,anna yed release 2020-06 0-20 00:00: 00 No 1mg duloxetine 60 mg capsule,del ayed release 2020-06 0-20 00:00: 00 No 1mg diclofenac sodium 75 mg tablet,anna yed release 2020-06 0-20 00:00: 00 No 1mg duloxetine 60 mg capsule,del ayed release 2020-06 0-20 00:00: 00 No 1mg diclofenac sodium 75 mg tablet,anna yed release 2020-06 0-20 00:00: 00 No 1mg duloxetine 60 mg capsule,del ayed release 2020-06 0-20 00:00: 00 No 1mg diclofenac sodium 75 mg tablet,anna yed release 2020-06 0-20 00:00: 00 No 1mg duloxetine 60 mg capsule,del ayed release 2020-06 0-20 00:00: 00 No 1mg Novolog Flexpen U-100 [facility]ulin aspart 100 unit/mL (3 mL[facility] 00:00: 00 No 5(3 mL) Lantus Solostar U-100 Insulin 100 unit/mL (3 mL) [facility] pen 2020-06 0-08 00:00: 00 No 10(3 mL) loratadine 10 mg tablet 2020-06 0-08 00:00: 00 No 1mg Novolog Flexpen U-100 Insulin aspart 100 unit/mL (3 mL) [facility]-08 00:00: 00 No 5(3 mL) Lantus Solostar U-100 [facility]ulin 100 unit[facility]mL [facility]3 mL[facility] 2020-06 0-08 00:00: 00 No 10(3 mL) loratadine 10 mg tablet 2020-06 0-08 00:00: 00 No 1mg Novolog Flexpen U-100 Insulin aspart 100 unit/mL (3 mL) subcutaneou s 2020-06 0-08 00:00: 00 No 5(3 mL) Lantus Solostar U-100 Insulin 100 unit/mL (3 mL) subcutaneou s pen 2020-06 0-08 00:00: 00 No 10(3 mL) loratadine 10 mg tablet 2020-06 0-08 00:00: 00 No 1mg Novolog Flexpen U-100 Insulin aspart 100 unit/mL (3 mL) subcutaneou s 2020-06 0-08 00:00: 00 No 5(3 mL) Lantus Solostar U-100 Insulin 100 unit/mL (3 mL) subcutaneou s pen 2020-06 0-08 00:00: 00 No 10(3 mL) loratadine 10 mg tablet 2020-06 0-08 00:00: 00 No 1mg ProAir HFA 90 mcg/actuati on aerosol inhaler - 00:00: 00 No 2mcg/ac tuation levofloxaci n 500 mg tablet - 00:00: 00 No 1mg ondansetron 4 mg disintegrat ing tablet - 00:00: 00 No 1mg ProAir HFA 90 mcg/actuati on aerosol inhaler - 00:00: 00 No 2mcg/ac tuation levofloxaci n 500 mg tablet - 00:00: 00 No 1mg ondansetron 4 mg disintegrat ing tablet - 00:00: 00 No 1mg ProAir HFA 90 mcg/actuati on aerosol inhaler - 00:00: 00 No 2mcg/ac tuation levofloxaci n 500 mg tablet - 00:00: 00 No 1mg ondansetron 4 mg disintegrat ing tablet - 00:00: 00 No 1mg ProAir HFA 90 mcg/actuati on aerosol inhaler - 00:00: 00 No 2mcg/ac tuation levofloxaci n 500 mg tablet 02-08 00:00: 00 No 1mg ondansetron 4 mg disintegrat ing tablet 02-08 00:00: 00 No 1mg azithromyci n 250 mg tablet 11-27 00:00: 00 No mg benzonatate 200 mg capsule 11-27 00:00: 00 No 1mg azithromyci n 250 mg tablet 11-27 00:00: 00 No mg benzonatate 200 mg capsule 11-27 00:00: 00 No 1mg azithromyci n 250 mg tablet 11-27 00:00: 00 No mg benzonatate 200 mg capsule 11-27 00:00: 00 No 1mg azithromyci n 250 mg tablet 11-27 00:00: 00 No mg benzonatate 200 mg capsule 11-27 00:00: 00 No 1mg Novolog Flexpen U-100 Insulin aspart 100 unit/mL (3 mL) subcutaneou s 11-01 00:00: 00 No 5(3 mL) Novolog Flexpen U-100 Insulin aspart 100 unit/mL (3 mL) subcutane s 11-01 00:00: 00 No 5(3 mL) Novolog Flexpen U-100 Insulin aspart 100 unit/mL (3 mL) subcutane s 11-01 00:00: 00 No 5(3 mL) Novolog Flexpen U-100 Insulin aspart 100 unit/mL (3 mL) subcutane s 11-01 00:00: 00 No 5(3 mL) Lantus Solostar U-100 Insulin 100 unit/mL (3 mL) [facility] pen 0 10-31 00:00: 00 No 10(3 mL) Lantus Solostar U-100 Insulin 100 unit/mL (3 mL) [facility] pen 0 10-31 00:00: 00 No 10(3 mL) Lantus Solostar U-100 Insulin 100 unit/mL (3 mL) [facility] pen 10-31 00:00: 00 No 10(3 mL) Lantus Solostar U-100 Insulin 100 unit/mL (3 mL) subcutaneou s pen 10-31 00:00: 00 No 10(3 mL) triamcinolo ne acetonide 0.1 % topical cream 10-25 00:00: 00 No 1% triamcinolo ne acetonide 0.1 % topical cream 10-25 00:00: 00 No 1% triamcinolo ne acetonide 0.1 % topical cream 10-25 00:00: 00 No 1% triamcinolo ne acetonide 0.1 % topical cream 10-25 00:00: 00 No 1% TAKE 1 TABLET DAILY DIRECTED. 10-07 00:00: 00 No fenofibrate 120 mg tablet 10-07 00:00: 00 No 1mg rosuvastati n 5 mg tablet 10-07 00:00: 00 No 1mg lisinopril 2.5 mg tablet 10-07 00:00: 00 No 1mg glipizide 10 mg tablet 10-07 00:00: 00 No 1mg fenofibrate 120 mg tablet 10-07 00:00: 00 No 1mg rosuvastati n 5 mg tablet 10-07 00:00: 00 No 1mg lisinopril 2.5 mg tablet 10-07 00:00: 00 No 1mg TAKE 1 TABLET DAILY DIRECTED. 10-07 00:00: 00 No fenofibrate 120 mg tablet 10-07 00:00: 00 No 1mg rosuvastati n 5 mg tablet 10-07 00:00: 00 No 1mg lisinopril 2.5 mg tablet 10-07 00:00: 00 No 1mg TAKE 1 TABLET DAILY DIRECTED. 10-07 00:00: 00 No fenofibrate 120 mg tablet 10-07 00:00: 00 No 1mg rosuvastati n 5 mg tablet 10-07 00:00: 00 No 1mg lisinopril 2.5 mg tablet 0 10-07 00:00: 00 No 1mg ProAir HFA 90 mcg/actuati on aerosol inhaler 0 10-04 00:00: 00 No 2mcg/ac tuation loratadine 10 mg tablet 0 10-04 00:00: 00 No 1mg Tradjenta 5 mg tablet 10-04 00:00: 00 No 1mg metformin 1,000 mg tablet 0 10-04 00:00: 00 No 1mg gemfibrozil 600 mg tablet 10-04 00:00: 00 No 1mg ProAir HFA 90 mcg/actuati on aerosol inhaler 10-04 00:00: 00 No 2mcg/ac tuation loratadine 10 mg tablet 10-04 00:00: 00 No 1mg Tradjenta 5 mg tablet 10-04 00:00: 00 No 1mg metformin 1,000 mg tablet 0 10-04 00:00: 00 No 1mg gemfibrozil 600 mg tablet 10-04 00:00: 00 No 1mg ProAir HFA 90 mcg/actuati on aerosol inhaler 10-04 00:00: 00 No 2mcg/ac tuation loratadine 10 mg tablet 10-04 00:00: 00 No 1mg Tradjenta 5 mg tablet 10-04 00:00: 00 No 1mg metformin 1,000 mg tablet 10-04 00:00: 00 No 1mg gemfibrozil 600 mg tablet 0 10-04 00:00: 00 No 1mg ProAir HFA 90 mcg/actuati on aerosol inhaler 10-04 00:00: 00 No 2mcg/ac tuation loratadine 10 mg tablet 10-04 00:00: 00 No 1mg Tradjenta 5 mg tablet 0 10-04 00:00: 00 No 1mg metformin 1,000 mg tablet 0 10-04 00:00: 00 No 1mg gemfibrozil 600 mg tablet 2021-0 4-29 00:00: 00 No 1mg loratadine 10 mg tablet 0 2-24 00:00: 00 No 1mg Tradjenta 5 mg tablet 0 2-24 00:00: 00 No 1mg gemfibrozil 600 mg tablet 0 2-24 00:00: 00 No 1mg metformin 1,000 mg tablet 0 2-24 00:00: 00 No 1mg loratadine 10 mg tablet 0 2-24 00:00: 00 No 1mg Tradjenta 5 mg tablet 0 2-24 00:00: 00 No 1mg gemfibrozil 600 mg tablet 0 2-24 00:00: 00 No 1mg metformin 1,000 mg tablet 0 2-24 00:00: 00 No 1mg loratadine 10 mg tablet 0 2-24 00:00: 00 No 1mg Tradjenta 5 mg tablet 0 2-24 00:00: 00 No 1mg gemfibrozil 600 mg tablet 0 2-24 00:00: 00 No 1mg metformin 1,000 mg tablet 0 2-24 00:00: 00 No 1mg loratadine 10 mg tablet 0 2-24 00:00: 00 No 1mg Tradjenta 5 mg tablet 0 2-24 00:00: 00 No 1mg gemfibrozil 600 mg tablet 0 2-24 00:00: 00 No 1mg metformin 1,000 mg tablet 0 2-24 00:00: 00 No 1mg gemfibrozil 600 mg tablet 2019-06 2-15 00:00: 00 No 1mg gemfibrozil 600 mg tablet 2019-06 2-15 00:00: 00 No 1mg gemfibrozil 600 mg tablet 2019-06 2-15 00:00: 00 No 1mg gemfibrozil 600 mg tablet 2019-06 2-15 00:00: 00 No 1mg ProAir HFA 90 mcg/actuati on aerosol inhaler 2019-06 2- 00:00: 00 No 2mcg/ac tuation Advair Diskus 100 mcg-50 mcg/dose powder for inhalation 2019-06- 00:00: 00 No 1mcg/do se loratadine- pseudoephed rine ER 10 mg-240 mg tablet,exte nded [id number] 2019-06 00:00: 00 No 1mg loratadine 10 mg tablet 2019-06 00:00: 00 No 1mg Tradjenta 5 mg tablet 2019-06 00:00: 00 No 1mg metformin 1,000 mg tablet 2019-06 00:00: 00 No 1mg gemfibrozil 600 mg tablet 2019-06 00:00: 00 No 1mg ibuprofen 800 mg tablet 2019-06 00:00: 00 No 1mg ProAir HFA 90 mcg/actuati on aerosol inhaler 2019-06 00:00: 00 No 2mcg/ac tuation Advair Diskus 100 mcg-50 mcg/dose powder for inhalation 2019-06 00:00: 00 No 1mcg/do se loratadine- pseudoephed rine ER 10 mg-240 mg tablet,exte nded [id number] 2019-06 00:00: 00 No 1mg loratadine 10 mg tablet 2019-06 00:00: 00 No 1mg Tradjenta 5 mg tablet 2019-06 00:00: 00 No 1mg metformin 1,000 mg tablet 2019-06 00:00: 00 No 1mg gemfibrozil 600 mg tablet 2019-06 00:00: 00 No 1mg ibuprofen 800 mg tablet 2019-06 00:00: 00 No 1mg ProAir HFA 90 mcg/actuati on aerosol inhaler 2019-06 00:00: 00 No 2mcg/ac tuation Advair Diskus 100 mcg-50 mcg/dose powder for inhalation 2019-06 00:00: 00 No 1mcg/do se loratadine- pseudoephed rine ER 10 mg-240 mg tablet,exte nded [id number] 2019-06 00:00: 00 No 1mg loratadine 10 mg tablet 2019-06 00:00: 00 No 1mg Tradjenta 5 mg tablet 2019-06 00:00: 00 No 1mg metformin 1,000 mg tablet 2019-06 00:00: 00 No 1mg gemfibrozil 600 mg tablet 2019-06 2 00:00: 00 No 1mg ibuprofen 800 mg tablet 2019-06 00:00: 00 No 1mg ProAir HFA 90 mcg/actuati on aerosol inhaler 2019-06 00:00: 00 No 2mcg/ac tuation Advair Diskus 100 mcg-50 mcg/dose powder for inhalation 2019-06 00:00: 00 No 1mcg/do se loratadine- pseudoephed rine ER 10 mg-240 mg tablet,exte nded [id number] 2019-06 00:00: 00 No 1mg loratadine 10 mg tablet 2019-06 00:00: 00 No 1mg Tradjenta 5 mg tablet 2019-06 00:00: 00 No 1mg metformin 1,000 mg tablet 2019-06 00:00: 00 No 1mg gemfibrozil 600 mg tablet 2019-06 00:00: 00 No 1mg ibuprofen 800 mg tablet 2019-06 00:00: 00 No 1mg ProAir HFA 90 mcg/actuati on aerosol inhaler 2019-06 00:00: 00 No 2mcg/ac tuation ProAir HFA 90 mcg/actuati on aerosol inhaler 2019-06 00:00: 00 No 2mcg/ac tuation Advair Diskus 100 mcg-50 mcg/dose powder for inhalation 2019-06 00:00: 00 No 1mcg/do se Advair Diskus 100 mcg-50 mcg/dose powder for inhalation 2019-06 00:00: 00 No 1mcg/do se ProAir HFA 90 mcg/actuati on aerosol inhaler 2019-06 00:00: 00 No 2mcg/ac tuation Advair Diskus 100 mcg-50 mcg/dose powder for inhalation 2019-06 00:00: 00 No 1mcg/do se ProAir HFA 90 mcg/actuati on aerosol inhaler 2019-06 00:00: 00 No 2mcg/ac tuation Advair Diskus 100 mcg-50 mcg/dose powder for inhalation 2020-1 1-12 00:00: 00 No 1mcg/do se loratadine- pseudoephed rine ER 10 mg-240 mg tablet,exte nded [id number] 2019-06 0- 00:00: 00 No 1mg loratadine 10 mg tablet 2019-06 00:00: 00 No 1mg loratadine- pseudoephed rine ER 10 mg-240 mg tablet,exte nded [id number] 2019-06- 00:00: 00 No 1mg loratadine 10 mg tablet 2019-06 0 00:00: 00 No 1mg loratadine- pseudoephed rine ER 10 mg-240 mg tablet,exte nded [id number] 2019-06- 00:00: 00 No 1mg loratadine 10 mg tablet 2019-06 00:00: 00 No 1mg loratadine- pseudoephed rine ER 10 mg-240 mg tablet,exte nded [id number] 2019-06 00:00: 00 No 1mg loratadine 10 mg tablet 2019-06 00:00: 00 No 1mg Tradjenta 5 mg tablet 2019-06 0-09 00:00: 00 No 1mg Tradjenta 5 mg tablet 2019-06 0-09 00:00: 00 No 1mg Tradjenta 5 mg tablet 2019-06 0-09 00:00: 00 No 1mg Tradjenta 5 mg tablet 2019-06 009 00:00: 00 No 1mg Januvia 100 mg tablet 2019-06 0-06 00:00: 00 No 1mg metformin 1,000 mg tablet 2019-06 0-06 00:00: 00 No 1mg gemfibrozil 600 mg tablet 2019-06 0-06 00:00: 00 No 1mg Januvia 100 mg tablet 2019-06 0-06 00:00: 00 No 1mg metformin 1,000 mg tablet 2019-06 0-06 00:00: 00 No 1mg gemfibrozil 600 mg tablet 2019-06 0-06 00:00: 00 No 1mg Januvia 100 mg tablet 2019-06 0-06 00:00: 00 No 1mg metformin 1,000 mg tablet 2019-06 0-06 00:00: 00 No 1mg gemfibrozil 600 mg tablet 2019-06 0-06 00:00: 00 No 1mg Januvia 100 mg tablet 2019-06 0-06 00:00: 00 No 1mg metformin 1,000 mg tablet 2019-06 0-06 00:00: 00 No 1mg gemfibrozil 600 mg tablet 2019-06 0-06 00:00: 00 No 1mg loratadine 10 mg tablet 0 9-04 00:00: 00 No 1mg loratadine 10 mg tablet 9- 00:00: 00 No 1mg loratadine 10 mg tablet 9- 00:00: 00 No 1mg loratadine 10 mg tablet 9- 00:00: 00 No 1mg amoxicillin 875 mg tablet 0 8- 00:00: 00 No 1mg amoxicillin 875 mg tablet 0 8- 00:00: 00 No 1mg amoxicillin 875 mg tablet 0 8- 00:00: 00 No 1mg amoxicillin 875 mg tablet 0 8 00:00: 00 No 1mg metformin 1,000 mg tablet 0 8- 00:00: 00 No 1mg ibuprofen 800 mg tablet 8- 00:00: 00 No 1mg metformin 1,000 mg tablet 0 8- 00:00: 00 No 1mg ibuprofen 800 mg tablet 8- 00:00: 00 No 1mg metformin 1,000 mg tablet 8 00:00: 00 No 1mg ibuprofen 800 mg tablet 8- 00:00: 00 No 1mg metformin 1,000 mg tablet 8- 00:00: 00 No 1mg ibuprofen 800 mg tablet 8- 00:00: 00 No 1mg ProAir HFA 90 mcg/actuati on aerosol inhaler 01-04 00:00: 00 No 2mcg/ac tuation prednisone 50 mg tablet 01-04 00:00: 00 No 1mg ProAir HFA 90 mcg/actuati on aerosol inhaler 01-04 00:00: 00 No 2mcg/ac tuation prednisone 50 mg tablet 01-04 00:00: 00 No 1mg ProAir HFA 90 mcg/actuati on aerosol inhaler 01-04 00:00: 00 No 2mcg/ac tuation prednisone 50 mg tablet 01-04 00:00: 00 No 1mg ProAir HFA 90 mcg/actuati on aerosol inhaler 01-04 00:00: 00 No 2mcg/ac tuation prednisone 50 mg tablet 01-04 00:00: 00 No 1mg promethazin e-DM 6.25 mg-15 mg/5 mL oral syrup 0 12-23 00:00: 00 No 5mg/5 mL promethazin e-DM 6.25 mg-15 mg/5 mL oral syrup 12-23 00:00: 00 No 5mg/5 mL promethazin e-DM 6.25 mg-15 mg/5 mL oral syrup 12-23 00:00: 00 No 5mg/5 mL promethazin e-DM 6.25 mg-15 mg/5 mL oral syrup 12-23 00:00: 00 No 5mg/5 mL ProAir HFA 90 mcg/actuati on aerosol inhaler 12-07 00:00: 00 No 1mcg/ac tuation ProAir HFA 90 mcg/actuati on aerosol inhaler 12-07 00:00: 00 No 1mcg/ac tuation ProAir HFA 90 mcg/actuati on aerosol inhaler 12-07 00:00: 00 No 1mcg/ac tuation ProAir HFA 90 mcg/actuati on aerosol inhaler 12-07 00:00: 00 No 1mcg/ac tuation Advair Diskus 100 mcg-50 mcg/dose powder for inhalation 11-14 00:00: 00 No 1mcg/do se loratadine 10 mg tablet 11-14 00:00: 00 No 1mg metformin 1,000 mg tablet 11-14 00:00: 00 No 1mg Advair Diskus 100 mcg-50 mcg/dose powder for inhalation 11-14 00:00: 00 No 1mcg/do se loratadine 10 mg tablet 11-14 00:00: 00 No 1mg metformin 1,000 mg tablet 11-14 00:00: 00 No 1mg Advair Diskus 100 mcg-50 mcg/dose powder for inhalation 11-14 00:00: 00 No 1mcg/do se loratadine 10 mg tablet 11-14 00:00: 00 No 1mg metformin 1,000 mg tablet 11-14 00:00: 00 No 1mg Advair Diskus 100 mcg-50 mcg/dose powder for inhalation 11-14 00:00: 00 No 1mcg/do se loratadine 10 mg tablet 11-14 00:00: 00 No 1mg metformin 1,000 mg tablet 11-14 00:00: 00 No 1mg ondansetron 4 mg disintegrat ing tablet 10-27 00:00: 00 No 1mg ondansetron 4 mg disintegrat ing tablet 10-27 00:00: 00 No 1mg ondansetron 4 mg disintegrat ing tablet 10-27 00:00: 00 No 1mg ondansetron 4 mg disintegrat ing tablet 10-27 00:00: 00 No 1mg indomethaci n 50 mg capsule 09-27 00:00: 00 No 1mg indomethaci n 50 mg capsule 09-27 00:00: 00 No 1mg indomethaci n 50 mg capsule 09-27 00:00: 00 No 1mg indomethaci n 50 mg capsule 09-27 00:00: 00 No 1mg Advair Diskus 100 mcg-50 mcg/dose powder for inhalation 09-04 00:00: 00 No 1mcg/do se Advair Diskus 100 mcg-50 mcg/dose powder for inhalation 09-04 00:00: 00 No 1mcg/do se Advair Diskus 100 mcg-50 mcg/dose powder for inhalation 09-04 00:00: 00 No 1mcg/do se Advair Diskus 100 mcg-50 mcg/dose powder for inhalation 09-04 00:00: 00 No 1mcg/do se pantoprazol e 20 mg tablet,anna yed release -06 00:00: 00 No 1mg loratadine 10 mg tablet 08-11 00:00: 00 No 1mg pantoprazol e 20 mg tablet,anna yed release 2019-0 3-06 00:00: 00 No 1mg loratadine 10 mg tablet 0 3-06 00:00: 00 No 1mg pantoprazol e 20 mg tablet,anna yed release 0 3-06 00:00: 00 No 1mg loratadine 10 mg tablet 0 3-06 00:00: 00 No 1mg pantoprazol e 20 mg tablet,anna yed release 0 3-06 00:00: 00 No 1mg loratadine 10 mg tablet 0 3-06 00:00: 00 No 1mg ibuprofen 800 mg tablet 0 2-20 00:00: 00 No 1mg methocarbam ol 500 mg tablet 0 2-20 00:00: 00 No 1mg ibuprofen 800 mg tablet 0 2-20 00:00: 00 No 1mg methocarbam ol 500 mg tablet 0 2-20 00:00: 00 No 1mg ibuprofen 800 mg tablet 0 2-20 00:00: 00 No 1mg methocarbam ol 500 mg tablet 0 2-20 00:00: 00 No 1mg ibuprofen 800 mg tablet 0 2-20 00:00: 00 No 1mg methocarbam ol 500 mg tablet 0 2-20 00:00: 00 No 1mg Claritin 10 mg tablet 0 2-07 00:00: 00 No 1mg pantoprazol e 20 mg tablet,anna yed release 0 2-07 00:00: 00 No 1mg ondansetron 4 mg disintegrat ing tablet 0 2-07 00:00: 00 No 1mg Claritin 10 mg tablet 0 2-07 00:00: 00 No 1mg pantoprazol e 20 mg tablet,anna yed release 0 2-07 00:00: 00 No 1mg ondansetron 4 mg disintegrat ing tablet 0 2-07 00:00: 00 No 1mg Claritin 10 mg tablet 0 2-07 00:00: 00 No 1mg pantoprazol e 20 mg tablet,anna yed release 0 2-07 00:00: 00 No 1mg ondansetron 4 mg disintegrat ing tablet 0 2-07 00:00: 00 No 1mg Claritin 10 mg tablet 07-15 00:00: 00 No 1mg pantoprazol e 20 mg tablet,anna yed release 2 00:00: 00 No 1mg ondansetron 4 mg disintegrat ing tablet 07-15 00:00: 00 No 1mg ProAir HFA 90 mcg/actuati on aerosol inhaler 07-02 00:00: 00 No 1mcg/ac tuation pioglitazon e 45 mg tablet 07-02 00:00: 00 No 1mg metformin 1,000 mg tablet 07-02 00:00: 00 No 1mg atorvastati n 20 mg tablet 07-02 00:00: 00 No 1mg ondansetron 4 mg disintegrat ing tablet 07-02 00:00: 00 No 1mg duloxetine 60 mg capsule,del ayed release 07-02 00:00: 00 No 1mg ProAir HFA 90 mcg/actuati on aerosol inhaler 07-02 00:00: 00 No 1mcg/ac tuation pioglitazon e 45 mg tablet 07-02 00:00: 00 No 1mg metformin 1,000 mg tablet 07-02 00:00: 00 No 1mg atorvastati n 20 mg tablet 07-02 00:00: 00 No 1mg ondansetron 4 mg disintegrat ing tablet 07-02 00:00: 00 No 1mg duloxetine 60 mg capsule,del ayed release 07-02 00:00: 00 No 1mg ProAir HFA 90 mcg/actuati on aerosol inhaler 07-02 00:00: 00 No 1mcg/ac tuation pioglitazon e 45 mg tablet 07-02 00:00: 00 No 1mg metformin 1,000 mg tablet 07-02 00:00: 00 No 1mg atorvastati n 20 mg tablet 07-02 00:00: 00 No 1mg ondansetron 4 mg disintegrat ing tablet 07-02 00:00: 00 No 1mg duloxetine 60 mg capsule,del ayed release 07-02 00:00: 00 No 1mg ProAir HFA 90 mcg/actuati on aerosol inhaler 07-02 00:00: 00 No 1mcg/ac tuation pioglitazon e 45 mg tablet 07-02 00:00: 00 No 1mg metformin 1,000 mg tablet 07-02 00:00: 00 No 1mg atorvastati n 20 mg tablet 07-02 00:00: 00 No 1mg ondansetron 4 mg disintegrat ing tablet 07-02 00:00: 00 No 1mg duloxetine 60 mg capsule,del ayed release 07-02 00:00: 00 No 1mg metFORMIN 1,000 mg tablet 2018-06 19:19: 20 Yes 1000mg Take 1,000 mg by mouth 2 (two) times daily with meals. [facility] levonorgest rel-ethinyl estradiol (SRONYX) 0.1-20 mg-mcg per tablet 2018-06 00:00: 00 Yes [id number] 1{tbl} Take 1 tablet by mouth daily. [facility] ondansetron 4 mg disintegrat ing tablet 2018-06 00:00: 00 No 1mg Tamiflu 75 mg capsule 2018-06 00:00: 00 No 1mg ondansetron 4 mg disintegrat ing tablet 2018-06 00:00: 00 No 1mg Tamiflu 75 mg capsule 2018-06 00:00: 00 No 1mg ondansetron 4 mg disintegrat ing tablet 2018-06 00:00: 00 No 1mg Tamiflu 75 mg capsule 2018-06 00:00: 00 No 1mg ondansetron 4 mg disintegrat ing tablet 2018-06 00:00: 00 No 1mg Tamiflu 75 mg capsule 2018-06 00:00: 00 No 1mg metoclopram esperanza 10 mg tablet 2018-06 00:00: 00 No 1mg meclizine 12.5 mg tablet 2018-06 00:00: 00 No 1mg metoclopram esperanza 10 mg tablet 2018-06 00:00: 00 No 1mg meclizine 12.5 mg tablet 2018-06 00:00: 00 No 1mg metoclopram esperanza 10 mg tablet 2018-06 00:00: 00 No 1mg meclizine 12.5 mg tablet 2018-06 00:00: 00 No 1mg metoclopram esperanza 10 mg tablet 2018-06 00:00: 00 No 1mg meclizine 12.5 mg tablet 2018-06 00:00: 00 No 1mg ProAir HFA 90 mcg/actuati on aerosol inhaler 03-01 00:00: 00 No 1mcg/ac tuation Advair Diskus 100 mcg-50 mcg/dose powder for inhalation 03-01 00:00: 00 No 1mcg/do se metformin 1,000 mg tablet 03-01 00:00: 00 No 1mg naproxen 500 mg tablet 03-01 00:00: 00 No 1mg ProAir HFA 90 mcg/actuati on aerosol inhaler 03-01 00:00: 00 No 1mcg/ac tuation Advair Diskus 100 mcg-50 mcg/dose powder for inhalation 03-01 00:00: 00 No 1mcg/do se metformin 1,000 mg tablet 03-01 00:00: 00 No 1mg naproxen 500 mg tablet 03-01 00:00: 00 No 1mg ProAir HFA 90 mcg/actuati on aerosol inhaler 03-01 00:00: 00 No 1mcg/ac tuation Advair Diskus 100 mcg-50 mcg/dose powder for inhalation 03-01 00:00: 00 No 1mcg/do se metformin 1,000 mg tablet 03-01 00:00: 00 No 1mg naproxen 500 mg tablet 03-01 00:00: 00 No 1mg ProAir HFA 90 mcg/actuati on aerosol inhaler 03-01 00:00: 00 No 1mcg/ac tuation Advair Diskus 100 mcg-50 mcg/dose powder for inhalation 03-01 00:00: 00 No 1mcg/do se metformin 1,000 mg tablet 03-01 00:00: 00 No 1mg naproxen 500 mg tablet 03-01 00:00: 00 No 1mg prednisone 10 mg tablet 02-03 00:00: 00 No 1mg Zofran 4 mg tablet 02-03 00:00: 00 No 1mg prednisone 10 mg tablet 02-03 00:00: 00 No 1mg Zofran 4 mg tablet 02-03 00:00: 00 No 1mg prednisone 10 mg tablet 02-03 00:00: 00 No 1mg Zofran 4 mg tablet 02-03 00:00: 00 No 1mg prednisone 10 mg tablet 02-03 00:00: 00 No 1mg Zofran 4 mg tablet 02-03 00:00: 00 No 1mg ProAir HFA 90 mcg/actuati on aerosol inhaler 01-27 00:00: 00 No 1mcg/ac tuation ProAir HFA 90 mcg/actuati on aerosol inhaler 01-27 00:00: 00 No 1mcg/ac tuation ProAir HFA 90 mcg/actuati on aerosol inhaler 01-27 00:00: 00 No 1mcg/ac tuation ProAir HFA 90 mcg/actuati on aerosol inhaler 01-27 00:00: 00 No 1mcg/ac tuation metformin 1,000 mg tablet 12-22 00:00: 00 No 1mg metformin 1,000 mg tablet 12-22 00:00: 00 No 1mg metformin 1,000 mg tablet 12-22 00:00: 00 No 1mg metformin 1,000 mg tablet 12-22 00:00: 00 No 1mg ProAir HFA 90 mcg/actuati on aerosol inhaler 12-16 00:00: 00 No 1mcg/ac tuation loratadine 10 mg tablet 12-16 00:00: 00 No 1mg ProAir HFA 90 mcg/actuati on aerosol inhaler 12-16 00:00: 00 No 1mcg/ac tuation loratadine 10 mg tablet 12-16 00:00: 00 No 1mg ProAir HFA 90 mcg/actuati on aerosol inhaler 12-16 00:00: 00 No 1mcg/ac tuation loratadine 10 mg tablet 12-16 00:00: 00 No 1mg ProAir HFA 90 mcg/actuati on aerosol inhaler 12-16 00:00: 00 No 1mcg/ac tuation loratadine 10 mg tablet 12-16 00:00: 00 No 1mg hydrOXYzine 25 mg capsule 11-10 00:00: 00 Yes 25mg Take 25 mg by mouth 2 (two) times daily. [facility] triamcinolo ne acetonide 0.1 % topical cream 11-09 00:00: 00 No 1% loratadine 10 mg tablet 11-09 00:00: 00 No 1mg triamcinolo ne acetonide 0.1 % topical cream 11-09 00:00: 00 No 1% loratadine 10 mg tablet 11-09 00:00: 00 No 1mg triamcinolo ne acetonide 0.1 % topical cream 11-09 00:00: 00 No 1% loratadine 10 mg tablet 11-09 00:00: 00 No 1mg triamcinolo ne acetonide 0.1 % topical cream 11-09 00:00: 00 No 1% loratadine 10 mg tablet 11-09 00:00: 00 No 1mg triamcinolo ne acetonide 0.1 % cream 11-09 00:00: 00 Yes 1{dose} Apply 1 Dose to affected area(s) 2 (two) times daily as needed. [facility] pioglitazon e 45 mg tablet 11-08 00:00: 00 Yes 45mg Take 45 mg by mouth daily. [facility] promethazin e 12.5 mg tablet 11-04 00:00: 00 No 1mg promethazin e 12.5 mg tablet 11-04 00:00: 00 No 1mg promethazin e 12.5 mg tablet 11-04 00:00: 00 No 1mg promethazin e 12.5 mg tablet 11-04 00:00: 00 No 1mg DULoxetine 30 mg capsule 10-31 00:00: 00 Yes 30mg Take 30 mg by mouth daily. [facility] ProAir HFA 90 mcg/actuati on aerosol inhaler 10-12 00:00: 00 No 1mcg/ac tuation indomethaci n 50 mg capsule 10-12 00:00: 00 No 1mg ProAir HFA 90 mcg/actuati on aerosol inhaler 10-12 00:00: 00 No 1mcg/ac tuation indomethaci n 50 mg capsule 10-12 00:00: 00 No 1mg ProAir HFA 90 mcg/actuati on aerosol inhaler 10-12 00:00: 00 No 1mcg/ac tuation indomethaci n 50 mg capsule 10-12 00:00: 00 No 1mg ProAir HFA 90 mcg/actuati on aerosol inhaler 10-12 00:00: 00 No 1mcg/ac tuation indomethaci n 50 mg capsule 10-12 00:00: 00 No 1mg triamcinolo ne acetonide 0.1 % topical cream 10-05 00:00: 00 No 1% triamcinolo ne acetonide 0.1 % topical cream 10-05 00:00: 00 No 1% triamcinolo ne acetonide 0.1 % topical cream 10-05 00:00: 00 No 1% triamcinolo ne acetonide 0.1 % topical cream 10-05 00:00: 00 No 1% metformin 1,000 mg tablet 09-02 00:00: 00 No 1mg metformin 1,000 mg tablet 09-02 00:00: 00 No 1mg metformin 1,000 mg tablet 09-02 00:00: 00 No 1mg metformin 1,000 mg tablet 09-02 00:00: 00 No 1mg metformin 1,000 mg tablet 08-03 00:00: 00 No 1mg metformin 1,000 mg tablet 08-03 00:00: 00 No 1mg metformin 1,000 mg tablet 08-03 00:00: 00 No 1mg metformin 1,000 mg tablet 08-03 00:00: 00 No 1mg LEVEMIR FLEXTOUCH U-100 INSULN 100 unit/mL (3 mL) injection 07-07 00:00: 00 Yes 80U Inject 80 Units into the skin every morning. [facility] gabapentin 300 mg capsule 06-22 00:00: 00 Yes TAKE 1 CAPSULE BY MOUTH THREE TIMES A DAY [facility] prednisone 20 mg tablet 2017-06 00:00: 00 No 1mg Vitamin D2 50,000 unit capsule 2017-06 00:00: 00 No 1unit prednisone 20 mg tablet 2017-06 00:00: 00 No 1mg Vitamin D2 50,000 unit capsule 2017-06 00:00: 00 No 1unit prednisone 20 mg tablet 2017-06 00:00: 00 No 1mg Vitamin D2 50,000 unit capsule 2017-06 00:00: 00 No 1unit prednisone 20 mg tablet 2017-06 00:00: 00 No 1mg Vitamin D2 50,000 unit capsule 2017-06 00:00: 00 No 1unit indomethaci n 50 mg capsule 2017-06 00:00: 00 No 1mg indomethaci n 50 mg capsule 2017-06 00:00: 00 No 1mg indomethaci n 50 mg capsule 2017-06 00:00: 00 No 1mg indomethaci n 50 mg capsule 2017-06 00:00: 00 No 1mg meloxicam 15 mg tablet 2017-06 00:00: 00 No 5mg metformin 1,000 mg tablet 2017-06 00:00: 00 No 1mg meloxicam 15 mg tablet 2017-06 00:00: 00 No 5mg metformin 1,000 mg tablet 2017-06 00:00: 00 No 1mg meloxicam 15 mg tablet 2017-06 00:00: 00 No 5mg metformin 1,000 mg tablet 2017-06 00:00: 00 No 1mg meloxicam 15 mg tablet 2017-06 00:00: 00 No 5mg metformin 1,000 mg tablet 2017-06 00:00: 00 No 1mg metformin 1,000 mg tablet 2017-06 0-04 00:00: 00 No 1mg metformin 1,000 mg tablet 2017-06 0 00:00: 00 No 1mg metformin 1,000 mg tablet 2017-06 0 00:00: 00 No 1mg metformin 1,000 mg tablet 2017-06 0 00:00: 00 No 1mg metformin 1,000 mg tablet 02-24 00:00: 00 No 1mg metformin 1,000 mg tablet 02-24 00:00: 00 No 1mg metformin 1,000 mg tablet 02-24 00:00: 00 No 1mg metformin 1,000 mg tablet 02-24 00:00: 00 No 1mg neomycin-po lymyxin-hyd rocort 3.5 mg-10,000 unit/mL-1 % ear drops,susp 02-03 00:00: 00 No 4mg/mL- unit/mL -% triamcinolo ne acetonide 0.1 % topical cream 02-03 00:00: 00 No 1% nifedipine ER 30 mg tablet,exte nded release 02-03 00:00: 00 No 1mg loratadine 10 mg tablet 02-03 00:00: 00 No 1mg prednisone 20 mg tablet 02-03 00:00: 00 No 1mg amoxicillin 500 mg capsule 02-03 00:00: 00 No 1mg gabapentin 300 mg capsule 02-03 00:00: 00 No 1mg neomycin-po lymyxin-hyd rocort 3.5 mg-10,000 unit/mL-1 % ear drops,susp 02-03 00:00: 00 No 4mg/mL- unit/mL -% triamcinolo ne acetonide 0.1 % topical cream 02-03 00:00: 00 No 1% nifedipine ER 30 mg tablet,exte nded release 02-03 00:00: 00 No 1mg loratadine 10 mg tablet 02-03 00:00: 00 No 1mg prednisone 20 mg tablet 02-03 00:00: 00 No 1mg amoxicillin 500 mg capsule 02-03 00:00: 00 No 1mg gabapentin 300 mg capsule 02-03 00:00: 00 No 1mg neomycin-po lymyxin-hyd rocort 3.5 mg-10,000 unit/mL-1 % ear drops,susp 02-03 00:00: 00 No 4mg/mL- unit/mL -% triamcinolo ne acetonide 0.1 % topical cream 02-03 00:00: 00 No 1% nifedipine ER 30 mg tablet,exte nded release 02-03 00:00: 00 No 1mg loratadine 10 mg tablet 02-03 00:00: 00 No 1mg prednisone 20 mg tablet 02-03 00:00: 00 No 1mg amoxicillin 500 mg capsule 02-03 00:00: 00 No 1mg gabapentin 300 mg capsule 02-03 00:00: 00 No 1mg neomycin-po lymyxin-hyd rocort 3.5 mg-10,000 unit/mL-1 % ear drops,susp 02-03 00:00: 00 No 4mg/mL- unit/mL -% triamcinolo ne acetonide 0.1 % topical cream 02-03 00:00: 00 No 1% nifedipine ER 30 mg tablet,exte nded release 02-03 00:00: 00 No 1mg loratadine 10 mg tablet 02-03 00:00: 00 No 1mg prednisone 20 mg tablet 02-03 00:00: 00 No 1mg amoxicillin 500 mg capsule 02-03 00:00: 00 No 1mg gabapentin 300 mg capsule 02-03 00:00: 00 No 1mg triamcinolo ne acetonide 0.1 % topical cream 01-28 00:00: 00 No 1% metformin 1,000 mg tablet 01-28 00:00: 00 No 1mg triamcinolo ne acetonide 0.1 % topical cream 01-28 00:00: 00 No 1% metformin 1,000 mg tablet 01-28 00:00: 00 No 1mg triamcinolo ne acetonide 0.1 % topical cream 01-28 00:00: 00 No 1% metformin 1,000 mg tablet 01-28 00:00: 00 No 1mg triamcinolo ne acetonide 0.1 % topical cream 01-28 00:00: 00 No 1% metformin 1,000 mg tablet 01-28 00:00: 00 No 1mg naproxen sodium 550 mg tablet 12-31 00:00: 00 No 1mg metformin 1,000 mg tablet 12-31 00:00: 00 No 1mg naproxen sodium 550 mg tablet 12-31 00:00: 00 No 1mg metformin 1,000 mg tablet 12-31 00:00: 00 No 1mg naproxen sodium 550 mg tablet 12-31 00:00: 00 No 1mg metformin 1,000 mg tablet 12-31 00:00: 00 No 1mg naproxen sodium 550 mg tablet 12-31 00:00: 00 No 1mg metformin 1,000 mg tablet 12-31 00:00: 00 No 1mg citalopram 40 mg tablet 12-20 00:00: 00 Yes 40mg Take 40 mg by mouth daily. [facility] naproxen sodium 550 mg tablet 12-04 00:00: 00 No 1mg naproxen sodium 550 mg tablet 12-04 00:00: 00 No 1mg naproxen sodium 550 mg tablet 12-04 00:00: 00 No 1mg naproxen sodium 550 mg tablet 12-04 00:00: 00 No 1mg Humulin N NPH U-100 Insulin (isophane susp) 100 unit/mL subcutaneou s 11-18 00:00: 00 No unit/mL Pepcid 20 mg tablet 11-18 00:00: 00 No 1mg Celexa 40 mg tablet 11-18 00:00: 00 No 1mg metformin 1,000 mg tablet 11-18 00:00: 00 No 1mg naproxen sodium 550 mg tablet 11-18 00:00: 00 No 1mg hydroxyzine HCl 25 mg tablet 11-18 00:00: 00 No 1mg Lamictal 25 mg tablet 11-18 00:00: 00 No 1mg Humulin N NPH U-100 Insulin (isophane susp) 100 unit/mL subcutaneou s 11-18 00:00: 00 No unit/mL Pepcid 20 mg tablet 11-18 00:00: 00 No 1mg Celexa 40 mg tablet 11-18 00:00: 00 No 1mg metformin 1,000 mg tablet 11-18 00:00: 00 No 1mg naproxen sodium 550 mg tablet 11-18 00:00: 00 No 1mg hydroxyzine HCl 25 mg tablet 11-18 00:00: 00 No 1mg Lamictal 25 mg tablet 11-18 00:00: 00 No 1mg Humulin N NPH U-100 Insulin (isophane susp) 100 unit/mL [facility] s 11-18 00:00: 00 No unit/mL Pepcid 20 mg tablet 11-18 00:00: 00 No 1mg Celexa 40 mg tablet 11-18 00:00: 00 No 1mg metformin 1,000 mg tablet 11-18 00:00: 00 No 1mg naproxen sodium 550 mg tablet 11-18 00:00: 00 No 1mg hydroxyzine HCl 25 mg tablet 11-18 00:00: 00 No 1mg Lamictal 25 mg tablet 11-18 00:00: 00 No 1mg Humulin N NPH U-100 Insulin (isophane susp) 100 unit/mL [facility] s 11-18 00:00: 00 No unit/mL Pepcid 20 mg tablet 11-18 00:00: 00 No 1mg Celexa 40 mg tablet 11-18 00:00: 00 No 1mg metformin 1,000 mg tablet 11-18 00:00: 00 No 1mg naproxen sodium 550 mg tablet 11-18 00:00: 00 No 1mg hydroxyzine HCl 25 mg tablet 11-18 00:00: 00 No 1mg Lamictal 25 mg tablet 11-18 00:00: 00 No 1mg Seroquel 100 mg tablet 07-22 00:00: 00 No 1mg Seroquel 100 mg tablet 07-22 00:00: 00 No 1mg Seroquel 100 mg tablet 07-22 00:00: 00 No 1mg Seroquel 100 mg tablet 07-22 00:00: 00 No 1mg loratadine 10 mg tablet 03-05 00:00: 00 No 1mg loratadine 10 mg tablet 03-05 00:00: 00 No 1mg loratadine 10 mg tablet 03-05 00:00: 00 No 1mg loratadine 10 mg tablet 03-05 00:00: 00 No 1mg Humulin R Regular U-100 Insulin 100 unit/mL injection solution 02-19 00:00: 00 No 1unit/m L Humulin N NPH U-100 Insulin (isophane susp) 100 unit/mL subcutaneou s 02-19 00:00: 00 No 1unit/m L Humulin R Regular U-100 Insulin 100 unit/mL injection solution 02-19 00:00: 00 No 1unit/m L Humulin N NPH U-100 Insulin (isophane susp) 100 unit/mL subcutaneou s 02-19 00:00: 00 No 1unit/m L Humulin R Regular U-100 Insulin 100 unit/mL injection solution 02-19 00:00: 00 No 1unit/m L Humulin N NPH U-100 Insulin (isophane susp) 100 unit/mL subcutaneou s 02-19 00:00: 00 No 1unit/m L Humulin R Regular U-100 Insulin 100 unit/mL injection solution 02-19 00:00: 00 No 1unit/m L Humulin N NPH U-100 Insulin (isophane susp) 100 unit/mL subcutaneou s 02-19 00:00: 00 No 1unit/m L neomycin-po lymyxin-hyd rocort 3.5 mg-10,000 unit/mL-1 % ear drops,susp 02-12 00:00: 00 No 4mg/mL- unit/mL -% promethazin e 12.5 mg tablet 02-12 00:00: 00 No 1mg omeprazole 20 mg capsule,del ayed release 02-12 00:00: 00 No 1mg neomycin-po lymyxin-hyd rocort 3.5 mg-10,000 unit/mL-1 % ear drops,susp 02-12 00:00: 00 No 4mg/mL- unit/mL -% promethazin e 12.5 mg tablet 02-12 00:00: 00 No 1mg omeprazole 20 mg capsule,del ayed release 02-12 00:00: 00 No 1mg neomycin-po lymyxin-hyd rocort 3.5 mg-10,000 unit/mL-1 % ear drops,susp 02-12 00:00: 00 No 4mg/mL- unit/mL -% promethazin e 12.5 mg tablet 02-12 00:00: 00 No 1mg omeprazole 20 mg capsule,del ayed release 02-12 00:00: 00 No 1mg neomycin-po lymyxin-hyd rocort 3.5 mg-10,000 unit/mL-1 % ear drops,susp 02-12 00:00: 00 No 4mg/mL- unit/mL -% promethazin e 12.5 mg tablet 02-12 00:00: 00 No 1mg omeprazole 20 mg capsule, ayed release 02-12 00:00: 00 No 1mg triamcinolo ne acetonide 0.1 % topical ointment 11-13 00:00: 00 No 1% triamcinolo ne acetonide 0.1 % topical ointment 11-13 00:00: 00 No 1% triamcinolo ne acetonide 0.1 % topical ointment 11-13 00:00: 00 No 1% triamcinolo ne acetonide 0.1 % topical ointment 11-13 00:00: 00 No 1% metformin 1,000 mg tablet 11-06 00:00: 00 No 1mg omeprazole 20 mg capsule, ayed release 11-06 00:00: 00 No 1mg metformin 1,000 mg tablet 11-06 00:00: 00 No 1mg omeprazole 20 mg capsule,del ayed release 11-06 00:00: 00 No 1mg metformin 1,000 mg tablet 11-06 00:00: 00 No 1mg omeprazole 20 mg capsule,del ayed release 11-06 00:00: 00 No 1mg metformin 1,000 mg tablet 11-06 00:00: 00 No 1mg omeprazole 20 mg capsule,del ayed release 11-06 00:00: 00 No 1mg gabapentin 300 mg capsule 09-12 00:00: 00 No 1mg gabapentin 300 mg capsule 09-12 00:00: 00 No 1mg gabapentin 300 mg capsule 09-12 00:00: 00 No 1mg gabapentin 300 mg capsule 09-12 00:00: 00 No 1mg Novolin N 100 unit/mL subcutaneou s suspension 08-07 00:00: 00 No 10unit/ mL metformin 1,000 mg tablet 08-07 00:00: 00 No 1mg ibuprofen 800 mg tablet 08-07 00:00: 00 No 1mg Novolin N 100 unit/mL subcutaneou s suspension 08-07 00:00: 00 No 10unit/ mL metformin 1,000 mg tablet 08-07 00:00: 00 No 1mg ibuprofen 800 mg tablet 08-07 00:00: 00 No 1mg Novolin N 100 unit/mL subcutaneou s suspension 08-07 00:00: 00 No 10unit/ mL metformin 1,000 mg tablet 08-07 00:00: 00 No 1mg ibuprofen 800 mg tablet 08-07 00:00: 00 No 1mg Novolin N 100 unit/mL subcutaneou s suspension 08-07 00:00: 00 No 10unit/ mL metformin 1,000 mg tablet 08-07 00:00: 00 No 1mg ibuprofen 800 mg tablet 08-07 00:00: 00 No 1mg hydroxyzine HCl 25 mg tablet 07-10 00:00: 00 No 1mg hydroxyzine HCl 25 mg tablet 07-10 00:00: 00 No 1mg hydroxyzine HCl 25 mg tablet 07-10 00:00: 00 No 1mg hydroxyzine HCl 25 mg tablet 07-10 00:00: 00 No 1mg albuterol sulfate HFA 90 mcg/actuati on aerosol inhaler 2015-06 00:00: 00 No 2mcg/ac tuation meloxicam 15 mg tablet 2015-06 00:00: 00 No 1mg gabapentin 400 mg capsule 2015-06 00:00: 00 No 1mg albuterol sulfate HFA 90 mcg/actuati on aerosol inhaler 2015-06 00:00: 00 No 2mcg/ac tuation meloxicam 15 mg tablet 2015-06 00:00: 00 No 1mg gabapentin 400 mg capsule 2015-06 00:00: 00 No 1mg albuterol sulfate HFA 90 mcg/actuati on aerosol inhaler 2015-06 00:00: 00 No 2mcg/ac tuation meloxicam 15 mg tablet 2015-06 00:00: 00 No 1mg albuterol sulfate HFA 90 mcg/actuati on aerosol inhaler 2015-06 00:00: 00 No 2mcg/ac tuation meloxicam 15 mg tablet 2015-06 00:00: 00 No 1mg gabapentin 400 mg capsule 2015-06 00:00: 00 No 1mg gabapentin 400 mg capsule 2015-06 00:00: 00 No 1mg Actos 45 mg tablet 02-27 00:00: 00 No 1mg metformin 1,000 mg tablet 02-27 00:00: 00 No 1mg Actos 45 mg tablet 02-27 00:00: 00 No 1mg metformin 1,000 mg tablet 02-27 00:00: 00 No 1mg Actos 45 mg tablet 02-27 00:00: 00 No 1mg metformin 1,000 mg tablet 02-27 00:00: 00 No 1mg Actos 45 mg tablet 02-27 00:00: 00 No 1mg metformin 1,000 mg tablet 02-27 00:00: 00 No 1mg Novolin N 100 unit/mL subcutaneou s suspension 08-29 00:00: 00 No 10unit/ mL Actos 45 mg tablet 08-29 00:00: 00 No 1mg metformin 1,000 mg tablet 08-29 00:00: 00 No 1mg Novolin N 100 unit/mL subcutaneou s suspension 08-29 00:00: 00 No 10unit/ mL Actos 45 mg tablet 08-29 00:00: 00 No 1mg metformin 1,000 mg tablet 08-29 00:00: 00 No 1mg Novolin N 100 unit/mL subcutaneou s suspension 08-29 00:00: 00 No 10unit/ mL Actos 45 mg tablet 08-29 00:00: 00 No 1mg metformin 1,000 mg tablet 08-29 00:00: 00 No 1mg Novolin N 100 unit/mL subcutaneou s suspension 08-29 00:00: 00 No 10unit/ mL Actos 45 mg tablet 08-29 00:00: 00 No 1mg metformin 1,000 mg tablet 08-29 00:00: 00 No 1mg Actos 45 mg tablet 08-02 00:00: 00 No 1mg Actos 45 mg tablet 08-02 00:00: 00 No 1mg Actos 45 mg tablet 08-02 00:00: 00 No 1mg Actos 45 mg tablet 08-02 00:00: 00 No 1mg metformin 1,000 mg tablet 06-28 00:00: 00 No 1mg metformin 1,000 mg tablet 06-28 00:00: 00 No 1mg metformin 1,000 mg tablet 06-28 00:00: 00 No 1mg metformin 1,000 mg tablet 06-28 00:00: 00 No 1mg citalopram 40 mg tablet 2014-06 00:00: 00 No 1mg citalopram 40 mg tablet 2014-06 00:00: 00 No 1mg citalopram 40 mg tablet 2014-06 00:00: 00 No 1mg citalopram 40 mg tablet 2014-06 00:00: 00 No 1mg Depakote ER 500 mg tablet,exte nded release 2014-06 00:00: 00 No 1mg Depakote ER 500 mg tablet,exte nded release 2014-06 00:00: 00 No 1mg Depakote ER 500 mg tablet,exte nded release 2014-06 00:00: 00 No 1mg Depakote ER 500 mg tablet,exte nded release 2014-06 00:00: 00 No 1mg albuterol sulfate HFA 90 mcg/actuati on aerosol inhaler 2014-06 00:00: 00 No 2mcg/ac tuation metformin 500 mg tablet 2014-06 00:00: 00 No mg gabapentin 300 mg capsule 2014-06 00:00: 00 No 1mg albuterol sulfate HFA 90 mcg/actuati on aerosol inhaler 2014-06 00:00: 00 No 2mcg/ac tuation metformin 500 mg tablet 2014-06 00:00: 00 No mg gabapentin 300 mg capsule 2014-06 00:00: 00 No 1mg albuterol sulfate HFA 90 mcg/actuati on aerosol inhaler 2014-06 00:00: 00 No 2mcg/ac tuation metformin 500 mg tablet 2014-06 00:00: 00 No mg gabapentin 300 mg capsule 2014-06 00:00: 00 No 1mg albuterol sulfate HFA 90 mcg/actuati on aerosol inhaler 2014-06 00:00: 00 No 2mcg/ac tuation metformin 500 mg tablet 2014-06 00:00: 00 No mg gabapentin 300 mg capsule 2014-06 00:00: 00 No 1mg Medrol (Daniel) 4 mg tablets in a dose pack 12-01 00:00: 00 No 1mg Medrol (Daniel) 4 mg tablets in a dose pack 12-01 00:00: 00 No 1mg Medrol (Daniel) 4 mg tablets in a dose pack 12-01 00:00: 00 No 1mg Medrol (Daniel) 4 mg tablets in a dose pack 12-01 00:00: 00 No 1mg Medrol (Daniel) 4 mg tablets in a dose pack 11-27 00:00: 00 No 1mg Medrol (Daniel) 4 mg tablets in a dose pack 11-27 00:00: 00 No 1mg Medrol (Daniel) 4 mg tablets in a dose pack 11-27 00:00: 00 No 1mg Medrol (Daniel) 4 mg tablets in a dose pack 11-27 00:00: 00 No 1mg Abilify 10 mg tablet 11-23 00:00: 00 No 5mg Abilify 10 mg tablet 11-23 00:00: 00 No 5mg citalopram 40 mg tablet 11-23 00:00: 00 No 1mg citalopram 40 mg tablet 11-23 00:00: 00 No 1mg Abilify 10 mg tablet 11-23 00:00: 00 No 5mg citalopram 40 mg tablet 11-23 00:00: 00 No 1mg Abilify 10 mg tablet 11-23 00:00: 00 No 5mg citalopram 40 mg tablet 11-23 00:00: 00 No 1mg Abilify 10 mg tablet 10-26 00:00: 00 No 5mg Abilify 10 mg tablet 10-26 00:00: 00 No 5mg Abilify 10 mg tablet 10-26 00:00: 00 No 5mg Abilify 10 mg tablet 10-26 00:00: 00 No 5mg citalopram 40 mg tablet 10-18 00:00: 00 No 1mg metformin 500 mg tablet 10-18 00:00: 00 No mg citalopram 40 mg tablet 10-18 00:00: 00 No 1mg metformin 500 mg tablet 10-18 00:00: 00 No mg citalopram 40 mg tablet 10-18 00:00: 00 No 1mg metformin 500 mg tablet 10-18 00:00: 00 No mg citalopram 40 mg tablet 10-18 00:00: 00 No 1mg metformin 500 mg tablet 10-18 00:00: 00 No mg citalopram 40 mg tablet 10-13 00:00: 00 No 1mg Cipro 500 mg tablet 10-13 00:00: 00 No 1mg metformin 500 mg tablet 10-13 00:00: 00 No mg citalopram 40 mg tablet 10-13 00:00: 00 No 1mg Cipro 500 mg tablet 10-13 00:00: 00 No 1mg metformin 500 mg tablet 10-13 00:00: 00 No mg citalopram 40 mg tablet 10-13 00:00: 00 No 1mg Cipro 500 mg tablet 10-13 00:00: 00 No 1mg metformin 500 mg tablet 10-13 00:00: 00 No mg citalopram 40 mg tablet 10-13 00:00: 00 No 1mg Cipro 500 mg tablet 10-13 00:00: 00 No 1mg metformin 500 mg tablet 10-13 00:00: 00 No mg Vital Signs Vital Name Observation Time Observation Value Comments S ource BP Systolic 2022-03-13 10:13:00 149 mm[Hg] BP [...] Procedures Procedure Date / Time Performed Performing Clinicia n Source Ear Lavage 2018-10-05 00:00:00 Rmvl Impacted Cerumen Spx both Ears 2015-10-11 00:00:00 Plan of Care Planned Activity Planned Date Details Comments Source Goal Plan of Care Note [code = 24291-7] Goal Plan of Care Note [code = 77465-3] Goal Plan of Care Note [code = 96451-8] Goal Plan of Care Note [code = 45346-1] Goal Plan of Care Note [code = 27911-9] Goal Plan of Care Note [code = 35499-0] Goal Plan of Care Note [code = 55935-7] Goal Plan of Care Note [code = 48493-0] Goal Plan of Care Note [code = 00639-2] Goal Plan of Care Note [code = 00462-1] Goal Plan of Care Note [code = 45182-1] Goal Plan of Care Note [code = 69295-6] Goal Plan of Care Note [code = 94872-1] Goal Plan of Care Note [code = 21044-7] Goal Plan of Care Note [code = 76455-5] Goal Plan of Care Note [code = 42260-0] Goal Plan of Care Note [code = 05190-2] Goal Plan of Care Note [code = 53562-2] Goal Plan of Care Note [code = 55613-6] Goal Plan of Care Note [code = 28232-1] Goal Plan of Care Note [code = 00834-8] Goal Plan of Care Note [code = 03834-4] Goal Plan of Care Note [code = 90884-7] Goal Plan of Care Note [code = 73536-2] Goal Plan of Care Note [code = 73408-6] Goal Plan of Care Note [code = 92886-7] Goal Plan of Care Note [code = 36263-4] Goal Plan of Care Note [code = 06541-4] Goal Plan of Care Note [code = 46171-1] Goal Plan of Care Note [code = 51135-0] Goal Plan of Care Note [code = 77275-7] Goal Plan of Care Note [code = 26939-2] Goal Plan of Care Note [code = 13812-5] Goal Plan of Care Note [code = 71091-6] Goal Plan of Care Note [code = 50867-0] Goal Plan of Care Note [code = 91368-4] Goal Plan of Care Note [code = 58839-5] Goal Plan of Care Note [code = 51031-9] Goal Plan of Care Note [code = 65999-3] Goal Plan of Care Note [code = 56731-6] Goal Plan of Care Note [code = 73864-3] Goal Plan of Care Note [code = 19320-9] Goal Plan of Care Note [code = 14166-9] Goal Plan of Care Note [code = 44449-1] Goal Plan of Care Note [code = 26688-1] Goal Plan of Care Note [code = 76723-0] Goal Plan of Care Note [code = 47775-1] Goal Plan of Care Note [code = 45694-1] Goal Plan of Care Note [code = 70425-4] Goal Plan of Care Note [code = 97292-6] Goal Plan of Care Note [code = 35962-7] Goal Plan of Care Note [code = 75456-8] Goal Plan of Care Note [code = 15766-4] Goal Plan of Care Note [code = 47348-8] Goal Plan of Care Note [code = 00859-5] Goal Plan of Care Note [code = 80967-9] Goal Plan of Care Note [code = 71399-6] Goal Plan of Care Note [code = 53856-5] Goal Plan of Care Note [code = 14812-5] Goal Plan of Care Note [code = 63294-0] Goal Plan of Care Note [code = 82470-7] Goal Plan of Care Note [code = 90451-0] Goal Plan of Care Note [code = 39387-0] Goal Plan of Care Note [code = 89794-3] Goal Plan of Care Note [code = 26445-1] Goal Plan of Care Note [code = 51659-3] Goal Plan of Care Note [code = 74962-7] Goal Plan of Care Note [code = 35464-9] Goal Plan of Care Note [code = 83854-4] Goal Plan of Care Note [code = 86327-9] Goal Plan of Care Note [code = 02671-5] Goal Plan of Care Note [code = 58701-7] Goal Plan of Care Note [code = 81860-6] Goal Plan of Care Note [code = 92393-1] Goal Plan of Care Note [code = 48402-5] Goal Plan of Care Note [code = 20959-4] Goal Plan of Care Note [code = 27822-5] Goal Plan of Care Note [code = 41481-7] Goal Plan of Care Note [code = 18646-1] Goal Plan of Care Note [code = 50429-5] Goal Plan of Care Note [code = 99371-8] Goal Plan of Care Note [code = 72045-6] Goal Plan of Care Note [code = 18672-6] Goal Plan of Care Note [code = 34051-3] Goal Plan of Care Note [code = 08179-4] Goal Plan of Care Note [code = 88674-1] Goal Plan of Care Note [code = 19590-7] Goal Plan of Care Note [code = 16656-2] Goal Plan of Care Note [code = 70559-2] Goal Plan of Care Note [code = 70382-3] Goal Plan of Care Note [code = 77538-7] Goal Plan of Care Note [code = 72808-3] Goal Plan of Care Note [code = 90026-9] Goal Plan of Care Note [code = 31822-6] Goal Plan of Care Note [code = 17801-1] Goal Plan of Care Note [code = 02251-2] Goal Plan of Care Note [code = 38615-8] Goal Plan of Care Note [code = 64190-4] Goal Plan of Care Note [code = 63511-5] Goal Plan of Care Note [code = 45679-2] Goal Plan of Care Note [code = 32890-9] Goal Plan of Care Note [code = 17964-5] Goal Plan of Care Note [code = 52118-5] Goal Plan of Care Note [code = 52192-1] Goal Plan of Care Note [code = 87922-4] Goal Plan of Care Note [code = 64479-2] Goal Plan of Care Note [code = 94427-2] Goal Plan of Care Note [code = 27457-8] Goal Plan of Care Note [code = 36444-1] Goal Plan of Care Note [code = 97451-2] Goal Plan of Care Note [code = 06131-8] Goal Plan of Care Note [code = 61954-2] Goal Plan of Care Note [code = 95310-3] Goal Plan of Care Note [code = 94921-4] Goal Plan of Care Note [code = 92396-9] Goal Plan of Care Note [code = 91997-2] Goal Plan of Care Note [code = 79207-9] Goal Plan of Care Note [code = 40744-9] Goal Plan of Care Note [code = 44330-4] Goal Plan of Care Note [code = 11321-1] Goal Plan of Care Note [code = 66217-7] Goal Plan of Care Note [code = 93026-2] Goal Plan of Care Note [code = 54215-0] Goal Plan of Care Note [code = 92987-9] Goal Plan of Care Note [code = 84052-0] Goal Plan of Care Note [code = 39927-4] Goal Plan of Care Note [code = 80892-6] Goal Plan of Care Note [code = 19343-6] Goal Plan of Care Note [code = 59156-9] Goal Plan of Care Note [code = 88726-8] Goal Plan of Care Note [code = 29409-2] Goal Plan of Care Note [code = 96873-9] Goal Plan of Care Note [code = 29313-3] Goal Plan of Care Note [code = 47919-5] Goal Plan of Care Note [code = 52961-2] Goal Plan of Care Note [code = 08772-9] Goal Plan of Care Note [code = 62584-7] Goal Plan of Care Note [code = 27702-6] Goal Plan of Care Note [code = 79116-5] Goal Plan of Care Note [code = 58901-0] Goal Plan of Care Note [code = 96948-5] Goal Plan of Care Note [code = 71849-2] Goal Plan of Care Note [code = 77611-2] Goal Plan of Care Note [code = 29378-8] Goal Plan of Care Note [code = 80627-0] Goal Plan of Care Note [code = 34248-1] Goal Plan of Care Note [code = 33753-6] Goal Plan of Care Note [code = 99729-0] Goal Plan of Care Note [code = 07864-4] Goal Plan of Care Note [code = 23967-2] Goal Plan of Care Note [code = 39211-8] Goal Plan of Care Note [code = 44616-6] Goal Plan of Care Note [code = 59116-4] Goal Plan of Care Note [code = 54039-9] Goal Plan of Care Note [code = 08388-2] Goal Plan of Care Note [code = 89323-1] Goal Plan of Care Note [code = 12705-2] Goal Plan of Care Note [code = 02315-2] Goal Plan of Care Note [code = 07895-8] Goal Plan of Care Note [code = 28761-3] Goal Plan of Care Note [code = 13830-5] Goal Plan of Care Note [code = 37798-9] Goal Plan of Care Note [code = 47924-3] Goal Plan of Care Note [code = 23638-9] Goal Plan of Care Note [code = 19984-0] Goal Plan of Care Note [code = 71531-1] Goal Plan of Care Note [code = 78850-3] Goal Plan of Care Note [code = 38094-3] Goal Plan of Care Note [code = 40205-0] Goal Plan of Care Note [code = 81465-1] Goal Plan of Care Note [code = 74353-2] Goal Plan of Care Note [code = 57751-5] Goal Plan of Care Note [code = 07436-1] Goal Plan of Care Note [code = 79518-9] Goal Plan of Care Note [code = 09855-4] Goal Plan of Care Note [code = 81235-3] Goal Plan of Care Note [code = 61568-7] Goal Plan of Care Note [code = 98877-1] Goal Plan of Care Note [code = 02508-5] Goal Plan of Care Note [code = 26218-9] Goal Plan of Care Note [code = 34147-3] Goal Plan of Care Note [code = 59425-7] Goal Plan of Care Note [code = 94180-8] Goal Plan of Care Note [code = 68199-0] Goal Plan of Care Note [code = 29691-9] Goal Plan of Care Note [code = 82591-3] Goal Plan of Care Note [code = 67014-2] Goal Plan of Care Note [code = 54033-2] Goal Plan of Care Note [code = 13060-8] Goal Plan of Care Note [code = 60702-3] Goal Plan of Care Note [code = 79152-1] Goal Plan of Care Note [code = 52489-7] Goal Plan of Care Note [code = 03944-4] Goal Plan of Care Note [code = 75499-5] Goal Plan of Care Note [code = 48531-8] Goal Plan of Care Note [code = 77782-1] Goal Plan of Care Note [code = 85186-6] Goal Plan of Care Note [code = 48592-8] Goal Plan of Care Note [code = 68760-8] Goal Plan of Care Note [code = 21731-5] Goal Plan of Care Note [code = 65949-6] Goal Plan of Care Note [code = 42306-0] Goal Plan of Care Note [code = 33775-3] Goal Plan of Care Note [code = 85532-4] Goal Plan of Care Note [code = 18072-3] Goal Plan of Care Note [code = 24962-7] Goal Plan of Care Note [code = 88018-3] Goal Plan of Care Note [code = 02483-9] Goal Plan of Care Note [code = 27534-8] Goal Plan of Care Note [code = 61022-2] Goal Plan of Care Note [code = 23773-5] Goal Plan of Care Note [code = 75099-5] Goal Plan of Care Note [code = 31485-5] Goal Plan of Care Note [code = 83511-2] Goal Plan of Care Note [code = 13491-9] Goal Plan of Care Note [code = 09778-4] Goal Plan of Care Note [code = 34274-5] Goal Plan of Care Note [code = 94731-9] Goal Plan of Care Note [code = 13190-2] Goal Plan of Care Note [code = 23578-3] Goal Plan of Care Note [code = 47246-9] Goal Plan of Care Note [code = 61623-1] Goal Plan of Care Note [code = 00206-8] Goal Plan of Care Note [code = 40231-4] Goal Plan of Care Note [code = 73180-4] Goal Plan of Care Note [code = 34912-0] Goal Plan of Care Note [code = 17348-9] Goal Plan of Care Note [code = 70937-8] Goal Plan of Care Note [code = 48022-6] Goal Plan of Care Note [code = 16924-9] Goal Plan of Care Note [code = 20503-9] Goal Plan of Care Note [code = 60234-1] Goal Plan of Care Note [code = 96494-9] Goal Plan of Care Note [code = 16525-7] Goal Plan of Care Note [code = 00425-6] Goal Plan of Care Note [code = 31323-3] Goal Plan of Care Note [code = 66752-2] Goal Plan of Care Note [code = 38578-3] Goal Plan of Care Note [code = 42353-7] Goal Plan of Care Note [code = 21637-1] Goal Plan of Care Note [code = 13737-5] Goal Plan of Care Note [code = 74467-8] Goal Plan of Care Note [code = 47111-7] Goal Plan of Care Note [code = 59374-2] Goal Plan of Care Note [code = 13629-1] Goal Plan of Care Note [code = 95988-7] Goal Plan of Care Note [code = 45536-9] Goal Plan of Care Note [code = 62137-1] Goal Plan of Care Note [code = 64427-1] Goal Plan of Care Note [code = 11829-2] Goal Plan of Care Note [code = 72280-8] Goal Plan of Care Note [code = 92125-8] Goal Plan of Care Note [code = 39540-4] Goal Plan of Care Note [code = 16855-0] Goal Plan of Care Note [code = 01672-3] Goal Plan of Care Note [code = 08017-6] Goal Plan of Care Note [code = 11440-3] Goal Plan of Care Note [code = 12988-8] Goal Plan of Care Note [code = 31210-0] Goal Plan of Care Note [code = 23952-8] Goal Plan of Care Note [code = 52047-4] Goal Plan of Care Note [code = 97393-2] Goal Plan of Care Note [code = 82237-4] Goal Plan of Care Note [code = 19335-2] Goal Plan of Care Note [code = 48356-6] Goal Plan of Care Note [code = 90143-0] Goal Plan of Care Note [code = 74042-8] Goal Plan of Care Note [code = 15648-1] Goal Plan of Care Note [code = 21826-8] Goal Plan of Care Note [code = 45442-3] Goal Plan of Care Note [code = 92558-7] Goal Plan of Care Note [code = 17347-6] Goal Plan of Care Note [code = 56227-4] Goal Plan of Care Note [code = 29020-0] Goal Plan of Care Note [code = 63546-9] Goal Plan of Care Note [code = 66963-3] Goal Plan of Care Note [code = 27766-2] Goal Plan of Care Note [code = 91508-3] Goal Plan of Care Note [code = 80278-8] Goal Plan of Care Note [code = 27310-2] Goal Plan of Care Note [code = 04908-9] Goal Plan of Care Note [code = 22983-8] Goal Plan of Care Note [code = 92236-3] Goal Plan of Care Note [code = 93990-2] Goal Plan of Care Note [code = 08787-7] Goal Plan of Care Note [code = 92474-7] Goal Plan of Care Note [code = 45162-4] Goal Plan of Care Note [code = 22723-2] Goal Plan of Care Note [code = 21886-8] Goal Plan of Care Note [code = 53124-6] Goal Plan of Care Note [code = 92550-7] Goal Plan of Care Note [code = 48329-6] Goal Plan of Care Note [code = 81456-6] Goal Plan of Care Note [code = 17820-0] Goal Plan of Care Note [code = 18647-3] Goal Plan of Care Note [code = 39158-1] Goal Plan of Care Note [code = 41454-6] Goal Plan of Care Note [code = 40467-5] Goal Plan of Care Note [code = 02723-4] Goal Plan of Care Note [code = 30978-4] Goal Plan of Care Note [code = 44495-0] Goal Plan of Care Note [code = 67861-4] Goal Plan of Care Note [code = 87487-5] Goal Plan of Care Note [code = 35178-9] Goal Plan of Care Note [code = 71548-8] Goal Plan of Care Note [code = 01349-8] Goal Plan of Care Note [code = 29257-5] Goal Plan of Care Note [code = 38069-4] Goal Plan of Care Note [code = 04744-5] Goal Plan of Care Note [code = 51971-2] Goal Plan of Care Note [code = 86361-1] Goal Plan of Care Note [code = 23777-0] Goal Plan of Care Note [code = 26111-7] Goal Plan of Care Note [code = 20180-8] Goal Plan of Care Note [code = 33241-5] Goal Plan of Care Note [code = 87195-0] Goal Plan of Care Note [code = 33750-2] Goal Plan of Care Note [code = 76960-3] Goal Plan of Care Note [code = 48541-8] Goal Plan of Care Note [code = 46642-4] Goal Plan of Care Note [code = 38705-8] Goal Plan of Care Note [code = 78084-1] Goal Plan of Care Note [code = 83895-2] Goal Plan of Care Note [code = 22409-4] Goal Plan of Care Note [code = 52196-3] Goal Plan of Care Note [code = 92964-2] Goal Plan of Care Note [code = 21079-0] Goal Plan of Care Note [code = 55387-3] Goal Plan of Care Note [code = 00633-5] Goal Plan of Care Note [code = 65597-8] Goal Plan of Care Note [code = 91152-3] Goal Plan of Care Note [code = 62542-0] Goal Plan of Care Note [code = 48712-5] Goal Plan of Care Note [code = 17880-8] Goal Plan of Care Note [code = 63512-8] Goal Plan of Care Note [code = 44344-7] Goal Plan of Care Note [code = 50496-4] Goal Plan of Care Note [code = 56816-4] Goal Plan of Care Note [code = 19841-5] Goal Plan of Care Note [code = 45457-9] Goal Plan of Care Note [code = 54225-9] Goal Plan of Care Note [code = 15692-3] Goal Plan of Care Note [code = 25764-5] Goal Plan of Care Note [code = 08484-0] Goal Plan of Care Note [code = 13792-4] Goal Plan of Care Note [code = 42462-5] Goal Plan of Care Note [code = 03171-8] Goal Plan of Care Note [code = 74897-9] Goal Plan of Care Note [code = 52632-7] Goal Plan of Care Note [code = 17545-1] Goal Plan of Care Note [code = 05932-6] Goal Plan of Care Note [code = 88483-0] Goal Plan of Care Note [code = 20942-7] Goal Plan of Care Note [code = 51038-7] Goal Plan of Care Note [code = 47494-0] Goal Plan of Care Note [code = 58784-9] Goal Plan of Care Note [code = 43504-0] Goal Plan of Care Note [code = 99724-3] Goal Plan of Care Note [code = 98323-7] Goal Plan of Care Note [code = 15689-3] Goal Plan of Care Note [code = 40194-6] Goal Plan of Care Note [code = 66141-6] Goal Plan of Care Note [code = 81313-3] Goal Plan of Care Note [code = 13157-8] Goal Plan of Care Note [code = 88804-4] Goal Plan of Care Note [code = 86542-5] Goal Plan of Care Note [code = 19603-2] Goal Plan of Care Note [code = 21690-9] Goal Plan of Care Note [code = 41037-7] Goal Plan of Care Note [code = 17887-6] Goal Plan of Care Note [code = 56427-1] Goal Plan of Care Note [code = 07916-8] Goal Plan of Care Note [code = 57907-3] Goal Plan of Care Note [code = 23472-0] Goal Plan of Care Note [code = 04172-4] Goal Plan of Care Note [code = 36254-8] Goal Plan of Care Note [code = 38741-3] Goal Plan of Care Note [code = 26632-2] Goal Plan of Care Note [code = 00009-0] Goal Plan of Care Note [code = 24161-6] Goal Plan of Care Note [code = 31606-1] Goal Plan of Care Note [code = 26534-8] Goal Plan of Care Note [code = 96880-2] Goal Plan of Care Note [code = 61941-6] Goal Plan of Care Note [code = 42386-6] Goal Plan of Care Note [code = 37209-6] Goal Plan of Care Note [code = 57165-0] Goal Plan of Care Note [code = 17546-0] Goal Plan of Care Note [code = 18057-0] Goal Plan of Care Note [code = 43437-0] Goal Plan of Care Note [code = 39767-0] Goal Plan of Care Note [code = 76069-0] Goal Plan of Care Note [code = 30183-8] Goal Plan of Care Note [code = 53689-3] Goal Plan of Care Note [code = 85749-9] Goal Plan of Care Note [code = 75113-3] Goal Plan of Care Note [code = 55678-8] Goal Plan of Care Note [code = 83686-4] Goal Plan of Care Note [code = 63139-5] Goal Plan of Care Note [code = 15887-4] Goal Plan of Care Note [code = 79241-5] Goal Plan of Care Note [code = 35021-7] Goal Plan of Care Note [code = 87754-8] Goal Plan of Care Note [code = 51512-0] Goal Plan of Care Note [code = 19043-2] Goal Plan of Care Note [code = 60499-3] Goal Plan of Care Note [code = 10174-3] Goal Plan of Care Note [code = 29383-2] Goal Plan of Care Note [code = 31705-3] Goal Plan of Care Note [code = 84070-2] Goal Plan of Care Note [code = 67247-7] Goal Plan of Care Note [code = 64230-3] Goal Plan of Care Note [code = 45884-7] Goal Plan of Care Note [code = 58037-0] Goal Plan of Care Note [code = 91215-2] Goal Plan of Care Note [code = 57454-8] Goal Plan of Care Note [code = 06233-8] Goal Plan of Care Note [code = 35263-6] Goal Plan of Care Note [code = 49355-5] Goal Plan of Care Note [code = 95006-7] Goal Plan of Care Note [code = 24519-0] Goal Plan of Care Note [code = 06784-9] Goal Plan of Care Note [code = 57052-5] Goal Plan of Care Note [code = 82434-0] Goal Plan of Care Note [code = 14465-5] Goal Plan of Care Note [code = 00269-7] Goal Plan of Care Note [code = 10084-1] Goal Plan of Care Note [code = 24564-8] Goal Plan of Care Note [code = 34011-5] Goal Plan of Care Note [code = 34057-7] Goal Plan of Care Note [code = 03261-1] Goal Plan of Care Note [code = 85609-9] Goal Plan of Care Note [code = 70957-5] Goal Plan of Care Note [code = 05000-3] Goal Plan of Care Note [code = 29437-7] Goal Plan of Care Note [code = 51445-7] Goal Plan of Care Note [code = 78222-9] Goal Plan of Care Note [code = 39801-0] Goal Plan of Care Note [code = 45765-7] Goal Plan of Care Note [code = 57779-2] Goal Plan of Care Note [code = 26009-3] Goal Plan of Care Note [code = 00122-7] Goal Plan of Care Note [code = 47010-6] Goal Plan of Care Note [code = 00564-1] Goal Plan of Care Note [code = 46113-3] Goal Plan of Care Note [code = 70352-2] Goal Plan of Care Note [code = 30584-3] Goal Plan of Care Note [code = 87565-1] Goal Plan of Care Note [code = 05153-9] Goal Plan of Care Note [code = 82724-9] Goal Plan of Care Note [code = 24768-9] Goal Plan of Care Note [code = 49620-7] Goal Plan of Care Note [code = 22793-3] Goal Plan of Care Note [code = 03315-3] Goal Plan of Care Note [code = 48043-7] Goal Plan of Care Note [code = 32749-9] Goal Plan of Care Note [code = 18411-9] Goal Plan of Care Note [code = 28766-6] Goal Plan of Care Note [code = 47818-0] Goal Plan of Care Note [code = 16090-1] Goal Plan of Care Note [code = 14344-3] Goal Plan of Care Note [code = 71056-9] Goal Plan of Care Note [code = 96676-9] Goal Plan of Care Note [code = 95309-7] Goal Plan of Care Note [code = 18189-2] Goal Plan of Care Note [code = 65215-5] Goal Plan of Care Note [code = 14182-4] Goal Plan of Care Note [code = 61390-0] Goal Plan of Care Note [code = 32780-6] Goal Plan of Care Note [code = 16364-5] Goal Plan of Care Note [code = 55628-1] Goal Plan of Care Note [code = 25638-8] Goal Plan of Care Note [code = 48396-6] Goal Plan of Care Note [code = 24543-2] Goal Plan of Care Note [code = 57446-1] Goal Plan of Care Note [code = 69048-1] Goal Plan of Care Note [code = 32705-0] Goal Plan of Care Note [code = 11081-8] Goal Plan of Care Note [code = 01495-0] Goal Plan of Care Note [code = 58988-5] Goal Plan of Care Note [code = 75081-5] Goal Plan of Care Note [code = 31303-1] Goal Plan of Care Note [code = 57803-0] Goal Plan of Care Note [code = 61346-4] Goal Plan of Care Note [code = 69753-1] Goal Plan of Care Note [code = 12270-4] Goal Plan of Care Note [code = 66086-3] Goal Plan of Care Note [code = 68315-4] Goal Plan of Care Note [code = 42412-5] Goal Plan of Care Note [code = 81748-8] Goal Plan of Care Note [code = 60055-4] Goal Plan of Care Note [code = 99081-4] Goal Plan of Care Note [code = 86358-0] Goal Plan of Care Note [code = 23265-4] Goal Plan of Care Note [code = 09739-9] Goal Plan of Care Note [code = 78924-6] Goal Plan of Care Note [code = 84556-8] Goal Plan of Care Note [code = 99236-9] Goal Plan of Care Note [code = 89530-5] Goal Plan of Care Note [code = 56240-6] Goal Plan of Care Note [code = 55479-4] Goal Plan of Care Note [code = 45781-6] Goal Plan of Care Note [code = 38588-3] Goal Plan of Care Note [code = 29316-9] Goal Plan of Care Note [code = 33984-6] Goal Plan of Care Note [code = 08340-3] Goal Plan of Care Note [code = 27983-8] Goal Plan of Care Note [code = 27514-7] Goal Plan of Care Note [code = 71881-9] Goal Plan of Care Note [code = 19799-2] Goal Plan of Care Note [code = 40613-0] Goal Plan of Care Note [code = 71228-2] Goal Plan of Care Note [code = 45933-7] Goal Plan of Care Note [code = 05452-4] Goal Plan of Care Note [code = 42835-0] Goal Plan of Care Note [code = 88586-9] Goal Plan of Care Note [code = 37652-3] Goal Plan of Care Note [code = 53830-7] Goal Plan of Care Note [code = 34373-7] Goal Plan of Care Note [code = 91283-9] Goal Plan of Care Note [code = 72673-2] Goal Plan of Care Note [code = 14060-4] Goal Plan of Care Note [code = 37120-2] Goal Plan of Care Note [code = 16881-4] Goal Plan of Care Note [code = 76470-7] Goal Plan of Care Note [code = 19517-3] Goal Plan of Care Note [code = 65195-2] Goal Plan of Care Note [code = 33885-2] Goal Plan of Care Note [code = 45979-4] Goal Plan of Care Note [code = 72103-3] Goal Plan of Care Note [code = 89078-3] Goal Plan of Care Note [code = 48494-5] Goal Plan of Care Note [code = 59007-1] Goal Plan of Care Note [code = 96415-5] Goal Plan of Care Note [code = 65980-0] Goal Plan of Care Note [code = 02151-5] Goal Plan of Care Note [code = 61603-9] Encounters Start Date/Time End Date/Time Encounter Type Admission Type Attending [facility] Care Department Encounter ID Source 2022-11-08 13:50:49 2022-11-08 13:50:49 Outpatient [facility] [id number] Darrell Simpson 2022-08-25 09:10:03 2022-08-25 09:10:03 Outpatient [facility] [id number] Darrell Simpson 2022-06-24 09:11:30 2022-06-24 09:11:30 Outpatient [facility] [id number] Darrell Simpson 2022-03-13 10:02:38 2022-03-13 10:02:38 Outpatient [facility] 1006 Darrell Simpson 2022-03-13 00:00:00 2022-03-13 00:00:00 Outpatient Visit [id number] gw60-3048 -96fe-426 [id number] [id number]-[id number] q62-3365-4 6fe-426a69 e6bed6 2022-02-25 00:00:00 2022-02-25 00:00:00 Outpatient Visit [id number]- 63ae-453e -st82-237 4yogo2pi0 [id number] 3ae-453e-a w58-0171eq ad2ad7 2022-02-04 00:00:00 2022-02-04 00:00:00 Outpatient Visit [id number]- 0790-8409 -ir1m-c11 [id number] 990-4338-a p9h-f30n85 67dca9 2022-01-29 00:00:00 2022-01-29 00:00:00 Outpatient Visit 93i18ayh- 89y4-1nw4 -ez35-56x [id number]-6 4r4-8fd2-v v29-92hx58 8fd07d 2022-01-24 00:00:00 2022-01-24 00:00:00 Outpatient Visit z10k5wwc- 710f-4461 -el46-685 9e67zgxup [id number] s34e3eco-5 10f-4461-b p46-9536q9 6bfbbd 2021-12-25 00:00:00 2021-12-25 00:00:00 Outpatient Visit [id number]- 38ca-4797 -8886- [id number] 8ca-4797-8 886-caef88 71be9c 2020-08-23 00:00:00 2020-08-23 00:00:[facility] [place] [id number] [id number] [facility] 2020-08-23 00:00:00 2020-08-23 00:00:00 Patient Outreach [facility] [place] [place] [facility] [id number] [id number] Results Test Description Test Time Test Comments Results Result Co mments Source CULTURE, URINE 2022-02-01 10:17:33 SPECIMEN NUMBER: [id number] CULTURE, URINE SPECIMEN NUMBER: [id number] SPECIMEN COMMENT: URINE SOURCE: URINE REPORT STATUS: [...] CFU/ML UROGENITAL MICHELA PRESENT NO COMMON PATHOGENS CULTURE, [id number] 00:00:00* Test Item Value Reference Range Interpretation Comme nts CULTURE, URINE (test code = 68012) SPECIMEN NUMBER: [id number] CULTURE, [id number] 00:00:00* Test Item Value Reference Range Interpretation Comme nts CULTURE, URINE (test code = 63807) SPECIMEN NUMBER: [id number] CULTURE, [id number] 00:00:00* Test Item Value Reference Range Interpretation Comme nts CULTURE, URINE (test code = 23263) SPECIMEN NUMBER: [id number] CULTURE, [id number] 00:00:00* Test Item Value Reference Range Interpretation Comme nts CULTURE, URINE (test code = 63202) SPECIMEN NUMBER: [id number] HEMOGLOBIN [id number] 09:09:10* Test Item Value Reference Range Interpretation Comme nts HEMOGLOBIN A1c (test code = 14210) >15.5 % 4.2-5.6 H [employer] GUIDELINES FOR HGB A1C: PREDIABETES/INCREASED RISK . . . . . . . 5.7-6.4% DIAGNOSIS OF DIABETES . . . . . . . . . >=6.5% WITH CONFIRMATION OR APPROPRIATE SYMPTOMS NOTE: ASSAY MAY BE AFFECTED BY HEMOGLOBINOPATHIES (SICKLE CELL ANEMIA, S-C DISEASE, OTHERS) OR ARTIFICIALLY LOWERED BY DECREASED RED CELL SURVIVAL (HEMOLYTIC ANEMIAS, BLOOD LOSS, ETC.). CONSIDER ALTERNATE TESTING OR LABORATORY CONSULTATION. LIPID [id number] 05:23:43* Test Item Value Reference Range Interpretation Comme nts CHOLESTEROL (test code = 2210) 205 MG/DL <200 H TRIGLYCERIDES (test code = 2232) 188 MG/DL <150 H HDL CHOLESTEROL (test code = 2220) 75 MG/DL >39 CALC LDL CHOL (test code = 2237) 100 MG/DL <100 H NOTE: CALCULATED LDL IS BASED ON NINOSKA-TENORIO METHOD WHICHINCLUDES ADJUSTABLE TRIGLYCERIDE:VLDL CHOLESTEROL RATIO.THIS FACTOR VARIES BY MEASURED TRIGLYCERIDE AND NON-HDLCHOLESTEROL CONCENTRATIONS WITH INCREASED CALCULATED LDL SEENIN HIGHER TRIGLYCERIDE OR LOWER NON-HDL SPECIMENS. FOR MOREINFORMATION, SEE CLIENT ANNOUNCEMENT AT [email or web address] RISK RATIO LDL/HDL (test code = 2238) 1.33 RATIO <3.22 COMPREHENSIVE METABOLIC [id number] 05:23:43* Test Item Value Reference Range Interpretation Comme nts GLUCOSE (test code = 2217) 138 MG/DL 70-99 H BUN (test code = 2208) 10 MG/DL 6-20 CREATININE (test code = 2214) 0.31 MG/DL 0.60-1.30 L eGFR (2020 CKD-EPI) (test code = ) 134 ML/MIN/1.73 >60 CALC BUN/CREAT (test code = 2234) 32 RATIO 6-28 H SODIUM (test code = 2230) 140 MEQ/L 133-146 POTASSIUM (test code = 2227) 3.6 MEQ/L 3.5-5.4 CHLORIDE (test code = 2214) 103 MEQ/L 95-107 CARBON DIOXIDE (test code = 2205) 27 MEQ/L 19-31 CALCIUM (test code = 2208) 9.1 MG/DL 8.5-10.5 PROTEIN, TOTAL (test code = 2228) 6.5 G/DL 6.1-8.3 ALBUMIN (test code = 2200) 4.1 G/DL 3.5-5.2 CALC GLOBULIN (test code = 2239) 2.4 G/DL 1.9-3.7 CALC A/G RATIO (test code = 2233) 1.7 RATIO 1.0-2.6 BILIRUBIN, TOTAL (test code = 2206) 0.2 MG/DL See_Comment [Automated me ssage] The system which generated this result transmitted reference range: <=1.2. The reference range was not used to interpret this result as normal/abnormal. ALKALINE PHOSPHATASE (test code = 2203) 114 U/L 40-113 H AST (test code = 2217) 32 U/L 9-40 ALT (test code = 2218) 46 U/L 5-40 H UNLESS OTHERWISE INDICATED, ALL TESTING PERFORMED [facility] [address] [place] [address] [employer]: SARY LILLY M.D. CLIA NUMBER [id number] [facility] [place]. [id number] ALBUMIN/CREATININE RATIO, URINE, [id number] 04:42:57* Test Item Value Reference Range Interpretation Comme nts CREATININE, URINE, RANDOM (test code = 2072) 48.4 MG/DL NOT ESTAB ALBUMIN, URINE, RANDOM (test code = 32606) 2.5 MG/DL NOT ESTAB CALC ALBUMIN/CREAT, RND (test code = 29398) 52 MG/G <30 H Note: Albumin/Creatinine ratio reference interval reflects ADA and NKF guidelines. LIPID [id number] 00:00:00* Test Item Value Reference Range Interpretation Comme nts CHOLESTEROL (test code = 2210) 205 MG/DL TRIGLYCERIDES (test code = 2232) 188 MG/DL HDL CHOLESTEROL (test code = 2220) 75 MG/DL CALC LDL CHOL (test code = 2237) 100 MG/DL RISK RATIO LDL/HDL (test cod e = 2238) 1.33 RATIO COMPREHENSIVE METABOLIC [id number] 00:00:00* Test Item Value Reference Range Interpretation Comme nts GLUCOSE (test code = 2217) 138 MG/DL BUN (test code = 2208) 10 MG/DL CREATININE (test code = 2214) 0.31 MG/DL eGFR (2020 CKD-EPI) (test code = 63218) 134 ML/MIN/1.73 CALC BUN/CREAT (test code = 2235) 32 RATIO SODIUM (test code = 2231) 140 MEQ/L POTASSIUM (test code = 2228) 3.6 MEQ/L CHLORIDE (test code = 2215) 103 MEQ/L CARBON DIOXIDE (test code = 2206) 27 MEQ/L CALCIUM (test code = 2209) 9.1 MG/DL PROTEIN, TOTAL (test code = 2229) 6.5 G/DL ALBUMIN (test code = 2201) 4.1 G/DL CALC GLOBULIN (test code = 2240) 2.4 G/DL CALC A/G RATIO (test code = 2234) 1.7 RATIO BILIRUBIN, TOTAL (test code = 2207) 0.2 MG/DL ALKALINE PHOSPHATASE (test code = 2204) 114 U/L AST (test code = 2218) 32 U/L ALT (test code = 2219) 46 U/L ALBUMIN/CREATININE RATIO, RANDOM [id number] 00:00:00* Test Item Value Reference Range Interpretation Comme nts CREATININE, URINE, RANDOM (t est code = 2072) 48.4 MG/DL ALBUMIN, URINE, RANDOM (test code = 88847) 2.5 MG/DL CALC ALBUMIN/CREAT, RND (gavi t code = 42116) 52 MG/G HEMOGLOBIN [id number] 00:00:00* Test Item Value Reference Range Interpretation Comme nts HEMOGLOBIN A1c (test code = 94883) >15.5 % LIPID [id number] 00:00:00* Test Item Value Reference Range Interpretation Comme nts CHOLESTEROL (test code = 2210) 205 MG/DL TRIGLYCERIDES (test code = 2232) 188 MG/DL HDL CHOLESTEROL (test code = 2220) 75 MG/DL CALC LDL CHOL (test code = 2237) 100 MG/DL RISK RATIO LDL/HDL (test cod e = 2238) 1.33 RATIO COMPREHENSIVE METABOLIC [id number] 00:00:00* Test Item Value Reference Range Interpretation Comme nts GLUCOSE (test code = 2217) 138 MG/DL BUN (test code = 2208) 10 MG/DL CREATININE (test code = 2214) 0.31 MG/DL eGFR (2020 CKD-EPI) (test code = 29333) 134 ML/MIN/1.73 CALC BUN/CREAT (test code = 2235) 32 RATIO SODIUM (test code = 2231) 140 MEQ/L POTASSIUM (test code = 2228) 3.6 MEQ/L CHLORIDE (test code = 2215) 103 MEQ/L CARBON DIOXIDE (test code = 2206) 27 MEQ/L CALCIUM (test code = 2209) 9.1 MG/DL PROTEIN, TOTAL (test code = 2229) 6.5 G/DL ALBUMIN (test code = 2201) 4.1 G/DL CALC GLOBULIN (test code = 2240) 2.4 G/DL CALC A/G RATIO (test code = 2234) 1.7 RATIO BILIRUBIN, TOTAL (test code = 2207) 0.2 MG/DL ALKALINE PHOSPHATASE (test code = 2204) 114 U/L AST (test code = 2218) 32 U/L ALT (test code = 2219) 46 U/L ALBUMIN/CREATININE RATIO, RANDOM [id number] 00:00:00* Test Item Value Reference Range Interpretation Comme nts CREATININE, URINE, RANDOM (t est code = 2072) 48.4 MG/DL ALBUMIN, URINE, RANDOM (test code = 98925) 2.5 MG/DL CALC ALBUMIN/CREAT, RND (gavi t code = 93441) 52 MG/G HEMOGLOBIN [id number] 00:00:00* Test Item Value Reference Range Interpretation Comme nts HEMOGLOBIN A1c (test code = 60540) >15.5 % LIPID [id number] 00:00:00* Test Item Value Reference Range Interpretation Comme nts CHOLESTEROL (test code = 2210) 205 MG/DL TRIGLYCERIDES (test code = 2232) 188 MG/DL HDL CHOLESTEROL (test code = 2220) 75 MG/DL CALC LDL CHOL (test code = 2237) 100 MG/DL RISK RATIO LDL/HDL (test cod e = 2238) 1.33 RATIO COMPREHENSIVE METABOLIC [id number] 00:00:00* Test Item Value Reference Range Interpretation Comme nts GLUCOSE (test code = 2217) 138 MG/DL BUN (test code = 2208) 10 MG/DL CREATININE (test code = 2214) 0.31 MG/DL eGFR (2020 CKD-EPI) (test code = 69716) 134 ML/MIN/1.73 CALC BUN/CREAT (test code = 2235) 32 RATIO SODIUM (test code = 2231) 140 MEQ/L POTASSIUM (test code = 2228) 3.6 MEQ/L CHLORIDE (test code = 2215) 103 MEQ/L CARBON DIOXIDE (test code = 2206) 27 MEQ/L CALCIUM (test code = 2209) 9.1 MG/DL PROTEIN, TOTAL (test code = 2229) 6.5 G/DL ALBUMIN (test code = 2201) 4.1 G/DL CALC GLOBULIN (test code = 2240) 2.4 G/DL CALC A/G RATIO (test code = 2234) 1.7 RATIO BILIRUBIN, TOTAL (test code = 2207) 0.2 MG/DL ALKALINE PHOSPHATASE (test code = 2204) 114 U/L AST (test code = 2218) 32 U/L ALT (test code = 2219) 46 U/L ALBUMIN/CREATININE RATIO, RANDOM [id number] 00:00:00* Test Item Value Reference Range Interpretation Comme nts CREATININE, URINE, RANDOM (t est code = 2072) 48.4 MG/DL ALBUMIN, URINE, RANDOM (test code = 14892) 2.5 MG/DL CALC ALBUMIN/CREAT, RND (gavi t code = 28571) 52 MG/G HEMOGLOBIN [id number] 00:00:00* Test Item Value Reference Range Interpretation Comme nts HEMOGLOBIN A1c (test code = 84081) >15.5 % LIPID [id number] 00:00:00* Test Item Value Reference Range Interpretation Comme nts CHOLESTEROL (test code = 2210) 205 MG/DL TRIGLYCERIDES (test code = 2232) 188 MG/DL HDL CHOLESTEROL (test code = 2220) 75 MG/DL CALC LDL CHOL (test code = 2237) 100 MG/DL RISK RATIO LDL/HDL (test cod e = 2238) 1.33 RATIO COMPREHENSIVE METABOLIC [id number] 00:00:00* Test Item Value Reference Range Interpretation Comme nts GLUCOSE (test code = 2217) 138 MG/DL BUN (test code = 2208) 10 MG/DL CREATININE (test code = 2214) 0.31 MG/DL eGFR (2020 CKD-EPI) (test code = 88680) 134 ML/MIN/1.73 CALC BUN/CREAT (test code = 2235) 32 RATIO SODIUM (test code = 2231) 140 MEQ/L POTASSIUM (test code = 2228) 3.6 MEQ/L CHLORIDE (test code = 2215) 103 MEQ/L CARBON DIOXIDE (test code = 2206) 27 MEQ/L CALCIUM (test code = 2209) 9.1 MG/DL PROTEIN, TOTAL (test code = 2229) 6.5 G/DL ALBUMIN (test code = 2201) 4.1 G/DL CALC GLOBULIN (test code = 2240) 2.4 G/DL CALC A/G RATIO (test code = 2234) 1.7 RATIO BILIRUBIN, TOTAL (test code = 2207) 0.2 MG/DL ALKALINE PHOSPHATASE (test code = 2204) 114 U/L AST (test code = 2218) 32 U/L ALT (test code = 2219) 46 U/L ALBUMIN/CREATININE RATIO, RANDOM [id number] 00:00:00* Test Item Value Reference Range Interpretation Comme nts CREATININE, URINE, RANDOM (t est code = 2072) 48.4 MG/DL ALBUMIN, URINE, RANDOM (test code = 32908) 2.5 MG/DL CALC ALBUMIN/CREAT, RND (gavi t code = 34661) 52 MG/G HEMOGLOBIN [id number] 00:00:00* Test Item Value Reference Range Interpretation Comme nts HEMOGLOBIN A1c (test code = 78748) >15.5 % LIPID [id number] 00:00:00* Test Item Value Reference Range Interpretation Comme nts CHOLESTEROL (test code = 2210) 205 MG/DL TRIGLYCERIDES (test code = 2232) 188 MG/DL HDL CHOLESTEROL (test code = 2220) 75 MG/DL CALC LDL CHOL (test code = 2237) 100 MG/DL RISK RATIO LDL/HDL (test cod e = 2238) 1.33 RATIO COMPREHENSIVE METABOLIC [id number] 00:00:00* Test Item Value Reference Range Interpretation Comme nts GLUCOSE (test code = 2217) 138 MG/DL BUN (test code = 2208) 10 MG/DL CREATININE (test code = 2214) 0.31 MG/DL eGFR (2020 CKD-EPI) (test code = 09048) 134 ML/MIN/1.73 CALC BUN/CREAT (test code = 2235) 32 RATIO SODIUM (test code = 2231) 140 MEQ/L POTASSIUM (test code = 2228) 3.6 MEQ/L CHLORIDE (test code = 2215) 103 MEQ/L CARBON DIOXIDE (test code = 2206) 27 MEQ/L CALCIUM (test code = 2209) 9.1 MG/DL PROTEIN, TOTAL (test code = 2229) 6.5 G/DL ALBUMIN (test code = 2201) 4.1 G/DL CALC GLOBULIN (test code = 2240) 2.4 G/DL CALC A/G RATIO (test code = 2234) 1.7 RATIO BILIRUBIN, TOTAL (test code = 2207) 0.2 MG/DL ALKALINE PHOSPHATASE (test code = 2204) 114 U/L AST (test code = 2218) 32 U/L ALT (test code = 2219) 46 U/L ALBUMIN/CREATININE RATIO, RANDOM [id number] 00:00:00* Test Item Value Reference Range Interpretation Comme nts CREATININE, URINE, RANDOM (t est code = 2072) 48.4 MG/DL ALBUMIN, URINE, RANDOM (test code = 99828) 2.5 MG/DL CALC ALBUMIN/CREAT, RND (gavi t code = 56197) 52 MG/G HEMOGLOBIN [id number] 00:00:00* Test Item Value Reference Range Interpretation Comme nts HEMOGLOBIN A1c (test code = 10359) >15.5 % SARS-CoV-2 (COVID-19), RT-PCR/[id number] 08:05:41* Test Item Value Reference Range Interpretation Comments SARS-CoV-2 INTERPRETATION (test code = 46340) NEGATIVE SEE NOTE SARS-CoV-2 R NA NOT DETECTEDNegative results do not preclude SARS-CoV-2 infection and should notbe used as the sole basis for patient management decisions. Negativeresults must be combined with clinical observations, patient history,and epidemiological information. Optimum specimen types and timingfor peak viral levels during infections caused by SARS-CoV-2 have notbeen determined. Collection of multiple specimens or types ofspecimens may be necessary to detect virus. Improper specimencollection and handling, sequence variability under primers/probes,or organism present below the limit of detection may lead to falsenegative results. Positive and negative predictive values oftesting are highly dependent on prevalence. False negative testresults are more likely when prevalence is high. EFFECTIVE 08/19/2021, SPUTUM SPECIMENS CAN NO LONGER BE TESTED WITHTHIS ORDER CODE. FOR SALIVA, ORAL FLUID TESTING AND SPECIMENREQUIREMENTS, PLEASE REFER TO ORDER CODE 3509. SOURCE (test code = 92593) NOT SPECIFIED Note: Methodolog y is [facility] Real-Time RT-PCR. The expected result or reference range is NEGATIVE (Not Detected). For more information regarding COVID-19 testing to include clinicalinformation, methodology detail, intended use, FDA authorization andrecommended fact sheets for patients or healthcare providers, see [facility] Announcement: SARS-CoV-2 (COVID-19) by NAAT at URL below (note,fact sheets are provided by method given in report:[email or web address] Alternatively, see downloadable PDF fact sheet at:[email or web address] UNLESS OTHERWISE INDICATED, ALL TESTING PERFORMED [facility] [address] [place] [address] [employer]: SARY LILLY M.D. CLIA NUMBER [id number] [facility] [place]. [id number] SARS-CoV-2 (COVID-19) by RT-PCR (HIGH RISK)2021-08-29 00:00:00* Test Item Value Reference Range Interpretation Comme nts SARS-CoV-2 INTERPRETATION (t est code = 53430) NEGATIVE SOURCE (test code = 87883) NOT SPECIFIED SARS-CoV-2 (COVID-19) by RT-PCR (HIGH RISK)2021-08-29 00:00:00* Test Item Value Reference Range Interpretation Comme nts SARS-CoV-2 INTERPRETATION (t est code = 34631) NEGATIVE SOURCE (test code = 81810) NOT SPECIFIED SARS-CoV-2 (COVID-19) by RT-PCR (HIGH RISK)2021-08-29 00:00:00* Test Item Value Reference Range Interpretation Comme nts SARS-CoV-2 INTERPRETATION (t est code = 40465) NEGATIVE SOURCE (test code = 09811) NOT SPECIFIED SARS-CoV-2 (COVID-19) by RT-PCR (HIGH RISK)2021-08-29 00:00:00* Test Item Value Reference Range Interpretation Comme nts SARS-CoV-2 INTERPRETATION (t est code = 39165) NEGATIVE SOURCE (test code = 69043) NOT SPECIFIED SARS-CoV-2 (COVID-19) by RT-PCR (HIGH RISK)2021-08-29 00:00:00* Test Item Value Reference Range Interpretation Comme nts SARS-CoV-2 INTERPRETATION (t est code = 87165) NEGATIVE SOURCE (test code = 13359) NOT SPECIFIED SARS-CoV-2 (COVID-19) by RT-PCR (HIGH RISK)2021-08-29 00:00:00* Test Item Value Reference Range Interpretation Comme nts SARS-CoV-2 INTERPRETATION (t est code = 45386) NEGATIVE SOURCE (test code = 48067) NOT SPECIFIED SARS-CoV-2 (COVID-19), RT-PCR/[id number] 14:35:57* Test Item Value Reference Range Interpretation Comments SARS-CoV-2 INTERPRETATION (test code = 61414) POSITIVE SEE NOTE A SARS-CoV-2 R NA DETECTEDPositive results are indicative of the presence of SARS-CoV-2 RNA;clinical correlation with patient history and other diagnosticinformation is necessary to determine patient infection status.Positive results do not rule out bacterial infection or co-infectionwith other viruses. Positive and negative predictive values oftesting are highly dependent on prevalence. SOURCE (test code = 48535) NOT SPECIFIED Note: Methodolog y is [facility] Real-Time RT-PCR. The expected result or reference range is NEGATIVE (Not Detected). For more information regarding COVID-19 testing to include clinicalinformation, methodology detail, intended use, FDA authorization andrecommended fact sheets for patients or healthcare providers, see [facility] Announcement: SARS-CoV-2 (COVID-19) by NAAT at URL below (note,fact sheets are provided by method given in report:[email or web address] Alternatively, see downloadable PDF fact sheet at:[email or web address] [email or web address] UNLESS OTHERWISE INDICATED, ALL TESTING PERFORMED [facility] [employer], [facility]. [address] [place] [address] [employer]: SARY LILLY M.D. CLIA NUMBER [id number] [facility] [place] [place]. [id number] SARS-CoV-2 (COVID-19) by RT-PCR (HIGH RISK)2021-06-28 00:00:00* Test Item Value Reference Range Interpretation Comme nts SARS-CoV-2 INTERPRETATION (t est code = 34529) POSITIVE SOURCE (test code = 01093) NOT SPECIFIED SARS-CoV-2 (COVID-19) by RT-PCR (HIGH RISK)2021-06-28 00:00:00* Test Item Value Reference Range Interpretation Comme nts SARS-CoV-2 INTERPRETATION (t est code = 48541) POSITIVE SOURCE (test code = 95474) NOT SPECIFIED SARS-CoV-2 (COVID-19) by RT-PCR (HIGH RISK)2021-06-28 00:00:00* Test Item Value Reference Range Interpretation Comme nts SARS-CoV-2 INTERPRETATION (t est code = 55909) POSITIVE SOURCE (test code = 84188) NOT SPECIFIED SARS-CoV-2 (COVID-19) by RT-PCR (HIGH RISK)2021-06-28 00:00:00* Test Item Value Reference Range Interpretation Comme nts SARS-CoV-2 INTERPRETATION (t est code = 84414) POSITIVE SOURCE (test code = 84573) NOT SPECIFIED SARS-CoV-2 (COVID-19) by RT-PCR (HIGH RISK)2021-06-28 00:00:00* Test Item Value Reference Range Interpretation Comme nts SARS-CoV-2 INTERPRETATION (t est code = 92147) POSITIVE SOURCE (test code = 79219) NOT SPECIFIED SARS-CoV-2 (COVID-19) by RT-PCR (HIGH RISK)2021-06-28 00:00:00* Test Item Value Reference Range Interpretation Comme nts SARS-CoV-2 INTERPRETATION (t est code = 17596) POSITIVE SOURCE (test code = 91103) NOT SPECIFIED REFLEXED LDL [REFLEX]2021-03-30 00:00:00* Test Item Value Reference Range Interpretation Comme nts LDL DIRECT (test code = 4228) 123 MG/DL REFLEXED LDL [REFLEX]2021-03-30 00:00:00* Test Item Value Reference Range Interpretation Comme nts LDL DIRECT (test code = 4228) 123 MG/DL REFLEXED LDL [REFLEX]2021-03-30 00:00:00* Test Item Value Reference Range Interpretation Comme nts LDL DIRECT (test code = 4228) 123 MG/DL REFLEXED LDL [REFLEX]2021-03-30 00:00:00* Test Item Value Reference Range Interpretation Comme nts LDL DIRECT (test code = 4228) 123 MG/DL REFLEXED LDL [REFLEX]2021-03-30 00:00:00* Test Item Value Reference Range Interpretation Comme nts LDL DIRECT (test code = 4228) 123 MG/DL REFLEXED LDL [REFLEX]2021-03-30 00:00:00* Test Item Value Reference Range Interpretation Comme nts LDL DIRECT (test code = 4228) 123 MG/DL HEMOGLOBIN [id number] 00:00:00* Test Item Value Reference Range Interpretation Comme nts HEMOGLOBIN A1c (test code = 51780) 14.2 % C-REACTIVE [id number] 00:00:00* Test Item Value Reference Range Interpretation Comme nts C-REACTIVE PROTEIN (test cod e = 3513) <0.3 MG/DL SEDIMENTATION [id number] 00:00:00* Test Item Value Reference Range Interpretation Comme nts SEDIMENTATION RATE (test cod e = 1017) 12 MM/HOUR COMPREHENSIVE METABOLIC [id number] 00:00:00* Test Item Value Reference Range Interpretation Comme nts GLUCOSE (test code = 2217) 589 MG/DL BUN (test code = 2208) 18 MG/DL CREATININE (test code = 2214) 0.59 MG/DL eGFR AMER. (test cod e = 76930) 131 ML/MIN/1.73 eGFR NON- AMER. (test code = 54427) 113 ML/MIN/1.73 CALC BUN/CREAT (test code = 2235) 31 RATIO SODIUM (test code = 2231) 128 MEQ/L POTASSIUM (test code = 2228) 4.4 MEQ/L CHLORIDE (test code = 2215) 87 MEQ/L CARBON DIOXIDE (test code = 2206) 21 MEQ/L CALCIUM (test code = 2209) 9.6 MG/DL PROTEIN, TOTAL (test code = 2229) 7.0 G/DL ALBUMIN (test code = 2201) 4.5 G/DL CALC GLOBULIN (test code = 2240) 2.5 G/DL CALC A/G RATIO (test code = 2234) 1.8 RATIO BILIRUBIN, TOTAL (test code = 2207) 0.2 MG/DL ALKALINE PHOSPHATASE (test code = 2204) 225 U/L AST (test code = 2218) <5 U/L ALT (test code = 2219) 28 U/L LIPID PANEL WITH REFLEX DIRECT [id number] 00:00:00* Test Item Value Reference Range Interpretation Comme nts CHOLESTEROL (test code = 2210) 294 MG/DL TRIGLYCERIDES (test code = 2232) 1828 MG/DL HDL CHOLESTEROL (test code = 2220) 42 MG/DL CALC LDL CHOL (test code = 2237) (NOTE) MG/DL RISK RATIO LDL/HDL (test cod e = 2238) (NOTE) RATIO HEMOGLOBIN [id number] 00:00:00* Test Item Value Reference Range Interpretation Comme nts HEMOGLOBIN A1c (test code = 77577) 14.2 % C-REACTIVE [id number] 00:00:00* Test Item Value Reference Range Interpretation Comme nts C-REACTIVE PROTEIN (test cod e = 3513) <0.3 MG/DL SEDIMENTATION [id number] 00:00:00* Test Item Value Reference Range Interpretation Comme nts SEDIMENTATION RATE (test cod e = 1017) 12 MM/HOUR CBC W/AUTO [id number] 00:00:00* Test Item Value Reference Range Interpretation Comme nts WBC (test code = 1001) 7.5 K/UL [...] = 1013) 0.4 % IMMATURE GRANULOCYTES (test code = 1036) 0.8 % NUCLEATED RBCS (test code = 1065) 0.0 /100WBC'S PLATELET COUNT (test code = 1015) 235 K/UL ABSOLUTE NEUTROPHILS (test c ode = 1066) 3.97 K/UL ABSOLUTE LYMPHOCYTES (test c ode = 1067) 3.08 K/UL ABSOLUTE MONOCYTES (test cod e = 1068) 0.28 K/UL ABSOLUTE EOSINOPHILS (test c ode = 1040) 0.10 K/UL ABSOLUTE BASOPHILS (test cod e = 1069) 0.03 K/UL ABS IMMATURE GRANULOCYTES (t est code = 1020) 0.06 K/UL ABS NUCLEATED RBCS (test cod e = 28577) 0.00 K/UL COMPREHENSIVE METABOLIC [id number] 00:00:00* Test Item Value Reference Range Interpretation Comme nts GLUCOSE (test code = 2217) 589 MG/DL BUN (test code = 2208) 18 MG/DL CREATININE (test code = 2214) 0.59 MG/DL eGFR AMER. (test cod e = 32243) 131 ML/MIN/1.73 eGFR NON- AMER. (test code = 53579) 113 ML/MIN/1.73 CALC BUN/CREAT (test code = 2235) 31 RATIO SODIUM (test code = 2231) 128 MEQ/L POTASSIUM (test code = 2228) 4.4 MEQ/L CHLORIDE (test code = 2215) 87 MEQ/L CARBON DIOXIDE (test code = 2206) 21 MEQ/L CALCIUM (test code = 2209) 9.6 MG/DL PROTEIN, TOTAL (test code = 2229) 7.0 G/DL ALBUMIN (test code = 2201) 4.5 G/DL CALC GLOBULIN (test code = 2240) 2.5 G/DL CALC A/G RATIO (test code = 2234) 1.8 RATIO BILIRUBIN, TOTAL (test code = 2207) 0.2 MG/DL ALKALINE PHOSPHATASE (test code = 2204) 225 U/L AST (test code = 2218) <5 U/L ALT (test code = 2219) 28 U/L LIPID PANEL WITH REFLEX DIRECT [id number] 00:00:00* Test Item Value Reference Range Interpretation Comme nts CHOLESTEROL (test code = 2210) 294 MG/DL TRIGLYCERIDES (test code = 2232) 1828 MG/DL HDL CHOLESTEROL (test code = 2220) 42 MG/DL CALC LDL CHOL (test code = 2237) (NOTE) MG/DL RISK RATIO LDL/HDL (test cod e = 2238) (NOTE) RATIO HEMOGLOBIN [id number] 00:00:00* Test Item Value Reference Range Interpretation Comme nts HEMOGLOBIN A1c (test code = 19491) 14.2 % C-REACTIVE [id number] 00:00:00* Test Item Value Reference Range Interpretation Comme nts C-REACTIVE PROTEIN (test cod e = 3513) <0.3 MG/DL SEDIMENTATION [id number] 00:00:00* Test Item Value Reference Range Interpretation Comme nts SEDIMENTATION RATE (test cod e = 1017) 12 MM/HOUR CBC W/AUTO [id number] 00:00:00* Test Item Value Reference Range Interpretation Comme nts WBC (test code = 1001) 7.5 K/UL [...] = 1013) 0.4 % IMMATURE GRANULOCYTES (test code = 1036) 0.8 % NUCLEATED RBCS (test code = 1065) 0.0 /100WBC'S PLATELET COUNT (test code = 1015) 235 K/UL ABSOLUTE NEUTROPHILS (test c ode = 1066) 3.97 K/UL ABSOLUTE LYMPHOCYTES (test c ode = 1067) 3.08 K/UL ABSOLUTE MONOCYTES (test cod e = 1068) 0.28 K/UL ABSOLUTE EOSINOPHILS (test c ode = 1040) 0.10 K/UL ABSOLUTE BASOPHILS (test cod e = 1069) 0.03 K/UL ABS IMMATURE GRANULOCYTES (t est code = 1020) 0.06 K/UL ABS NUCLEATED RBCS (test cod e = 88115) 0.00 K/UL COMPREHENSIVE METABOLIC [id number] 00:00:00* Test Item Value Reference Range Interpretation Comme nts GLUCOSE (test code = 2217) 589 MG/DL BUN (test code = 2208) 18 MG/DL CREATININE (test code = 2214) 0.59 MG/DL eGFR AMER. (test cod e = 20790) 131 ML/MIN/1.73 eGFR NON- AMER. (test code = 03847) 113 ML/MIN/1.73 CALC BUN/CREAT (test code = 2235) 31 RATIO SODIUM (test code = 2231) 128 MEQ/L POTASSIUM (test code = 2228) 4.4 MEQ/L CHLORIDE (test code = 2215) 87 MEQ/L CARBON DIOXIDE (test code = 2206) 21 MEQ/L CALCIUM (test code = 2209) 9.6 MG/DL PROTEIN, TOTAL (test code = 2229) 7.0 G/DL ALBUMIN (test code = 2201) 4.5 G/DL CALC GLOBULIN (test code = 2240) 2.5 G/DL CALC A/G RATIO (test code = 2234) 1.8 RATIO BILIRUBIN, TOTAL (test code = 2207) 0.2 MG/DL ALKALINE PHOSPHATASE (test code = 2204) 225 U/L AST (test code = 2218) <5 U/L ALT (test code = 2219) 28 U/L LIPID PANEL WITH REFLEX DIRECT [id number] 00:00:00* Test Item Value Reference Range Interpretation Comme nts CHOLESTEROL (test code = 2210) 294 MG/DL TRIGLYCERIDES (test code = 2232) 1828 MG/DL HDL CHOLESTEROL (test code = 2220) 42 MG/DL CALC LDL CHOL (test code = 2237) (NOTE) MG/DL RISK RATIO LDL/HDL (test cod e = 2238) (NOTE) RATIO HEMOGLOBIN [id number] 00:00:00* Test Item Value Reference Range Interpretation Comme nts HEMOGLOBIN A1c (test code = 95862) 14.2 % C-REACTIVE [id number] 00:00:00* Test Item Value Reference Range Interpretation Comme nts C-REACTIVE PROTEIN (test cod e = 3513) <0.3 MG/DL SEDIMENTATION [id number] 00:00:00* Test Item Value Reference Range Interpretation Comme nts SEDIMENTATION RATE (test cod e = 1017) 12 MM/HOUR CBC W/AUTO [id number] 00:00:00* Test Item Value Reference Range Interpretation Comme nts WBC (test code = 1001) 7.5 K/UL [...] = 1013) 0.4 % IMMATURE GRANULOCYTES (test code = 1036) 0.8 % NUCLEATED RBCS (test code = 1065) 0.0 /100WBC'S PLATELET COUNT (test code = 1015) 235 K/UL ABSOLUTE NEUTROPHILS (test c ode = 1066) 3.97 K/UL ABSOLUTE LYMPHOCYTES (test c ode = 1067) 3.08 K/UL ABSOLUTE MONOCYTES (test cod e = 1068) 0.28 K/UL ABSOLUTE EOSINOPHILS (test c ode = 1040) 0.10 K/UL ABSOLUTE BASOPHILS (test cod e = 1069) 0.03 K/UL ABS IMMATURE GRANULOCYTES (t est code = 1020) 0.06 K/UL ABS NUCLEATED RBCS (test cod e = 32787) 0.00 K/UL COMPREHENSIVE METABOLIC [id number] 00:00:00* Test Item Value Reference Range Interpretation Comme nts GLUCOSE (test code = 2217) 589 MG/DL BUN (test code = 2208) 18 MG/DL CREATININE (test code = 2214) 0.59 MG/DL eGFR AMER. (test cod e = 98770) 131 ML/MIN/1.73 eGFR NON- AMER. (test code = 65178) 113 ML/MIN/1.73 CALC BUN/CREAT (test code = 2235) 31 RATIO SODIUM (test code = 2231) 128 MEQ/L POTASSIUM (test code = 2228) 4.4 MEQ/L CHLORIDE (test code = 2215) 87 MEQ/L CARBON DIOXIDE (test code = 2206) 21 MEQ/L CALCIUM (test code = 2209) 9.6 MG/DL PROTEIN, TOTAL (test code = 2229) 7.0 G/DL ALBUMIN (test code = 2201) 4.5 G/DL CALC GLOBULIN (test code = 2240) 2.5 G/DL CALC A/G RATIO (test code = 2234) 1.8 RATIO BILIRUBIN, TOTAL (test code = 2207) 0.2 MG/DL ALKALINE PHOSPHATASE (test code = 2204) 225 U/L AST (test code = 2218) <5 U/L ALT (test code = 2219) 28 U/L LIPID PANEL WITH REFLEX DIRECT [id number] 00:00:00* Test Item Value Reference Range Interpretation Comme nts CHOLESTEROL (test code = 2210) 294 MG/DL TRIGLYCERIDES (test code = 2232) 1828 MG/DL HDL CHOLESTEROL (test code = 2220) 42 MG/DL CALC LDL CHOL (test code = 2237) (NOTE) MG/DL RISK RATIO LDL/HDL (test cod e = 2238) (NOTE) RATIO HEMOGLOBIN [id number] 00:00:00* Test Item Value Reference Range Interpretation Comme nts HEMOGLOBIN A1c (test code = 39952) 14.2 % C-REACTIVE [id number] 00:00:00* Test Item Value Reference Range Interpretation Comme nts C-REACTIVE PROTEIN (test cod e = 3513) <0.3 MG/DL SEDIMENTATION [id number] 00:00:00* Test Item Value Reference Range Interpretation Comme nts SEDIMENTATION RATE (test cod e = 1017) 12 MM/HOUR CBC W/AUTO [id number] 00:00:00* Test Item Value Reference Range Interpretation Comme nts WBC (test code = 1001) 7.5 K/UL [...] = 1013) 0.4 % IMMATURE GRANULOCYTES (test code = 1036) 0.8 % NUCLEATED RBCS (test code = 1065) 0.0 /100WBC'S PLATELET COUNT (test code = 1015) 235 K/UL ABSOLUTE NEUTROPHILS (test c ode = 1066) 3.97 K/UL ABSOLUTE LYMPHOCYTES (test c ode = 1067) 3.08 K/UL ABSOLUTE MONOCYTES (test cod e = 1068) 0.28 K/UL ABSOLUTE EOSINOPHILS (test c ode = 1040) 0.10 K/UL ABSOLUTE BASOPHILS (test cod e = 1069) 0.03 K/UL ABS IMMATURE GRANULOCYTES (t est code = 1020) 0.06 K/UL ABS NUCLEATED RBCS (test cod e = 47537) 0.00 K/UL COMPREHENSIVE METABOLIC [id number] 00:00:00* Test Item Value Reference Range Interpretation Comme nts GLUCOSE (test code = 2217) 589 MG/DL BUN (test code = 2208) 18 MG/DL CREATININE (test code = 2214) 0.59 MG/DL eGFR AMER. (test cod e = 82518) 131 ML/MIN/1.73 eGFR NON- AMER. (test code = 72111) 113 ML/MIN/1.73 CALC BUN/CREAT (test code = 2235) 31 RATIO SODIUM (test code = 2231) 128 MEQ/L POTASSIUM (test code = 2228) 4.4 MEQ/L CHLORIDE (test code = 2215) 87 MEQ/L CARBON DIOXIDE (test code = 2206) 21 MEQ/L CALCIUM (test code = 2209) 9.6 MG/DL PROTEIN, TOTAL (test code = 2229) 7.0 G/DL ALBUMIN (test code = 2201) 4.5 G/DL CALC GLOBULIN (test code = 2240) 2.5 G/DL CALC A/G RATIO (test code = 2234) 1.8 RATIO BILIRUBIN, TOTAL (test code = 2207) 0.2 MG/DL ALKALINE PHOSPHATASE (test code = 2204) 225 U/L AST (test code = 2218) <5 U/L ALT (test code = 2219) 28 U/L LIPID PANEL WITH REFLEX DIRECT [id number] 00:00:00* Test Item Value Reference Range Interpretation Comme nts CHOLESTEROL (test code = 2210) 294 MG/DL TRIGLYCERIDES (test code = 2232) 1828 MG/DL HDL CHOLESTEROL (test code = 2220) 42 MG/DL CALC LDL CHOL (test code = 2237) (NOTE) MG/DL RISK RATIO LDL/HDL (test cod e = 2238) (NOTE) RATIO HEMOGLOBIN [id number] 00:00:00* Test Item Value Reference Range Interpretation Comme nts HEMOGLOBIN A1c (test code = 84966) 14.2 % C-REACTIVE [id number] 00:00:00* Test Item Value Reference Range Interpretation Comme nts C-REACTIVE PROTEIN (test cod e = 3513) <0.3 MG/DL SEDIMENTATION [id number] 00:00:00* Test Item Value Reference Range Interpretation Comme nts SEDIMENTATION RATE (test cod e = 1017) 12 MM/HOUR CBC W/AUTO [id number] 00:00:00* Test Item Value Reference Range Interpretation Comme nts WBC (test code = 1001) 7.5 K/UL [...] = 1013) 0.4 % IMMATURE GRANULOCYTES (test code = 1036) 0.8 % NUCLEATED RBCS (test code = 1065) 0.0 /100WBC'S PLATELET COUNT (test code = 1015) 235 K/UL ABSOLUTE NEUTROPHILS (test c ode = 1066) 3.97 K/UL ABSOLUTE LYMPHOCYTES (test c ode = 1067) 3.08 K/UL ABSOLUTE MONOCYTES (test cod e = 1068) 0.28 K/UL ABSOLUTE EOSINOPHILS (test c ode = 1040) 0.10 K/UL ABSOLUTE BASOPHILS (test cod e = 1069) 0.03 K/UL ABS IMMATURE GRANULOCYTES (t est code = 1020) 0.06 K/UL ABS NUCLEATED RBCS (test cod e = 63180) 0.00 K/UL CBC W/AUTO [id number] 00:00:00* Test Item Value Reference Range Interpretation Comme nts WBC (test code = 1001) 7.5 K/UL [...] = 1013) 0.4 % IMMATURE GRANULOCYTES (test code = 1036) 0.8 % NUCLEATED RBCS (test code = 1065) 0.0 /100WBC'S PLATELET COUNT (test code = 1015) 235 K/UL ABSOLUTE NEUTROPHILS (test c ode = 1066) 3.97 K/UL ABSOLUTE LYMPHOCYTES (test c ode = 1067) 3.08 K/UL ABSOLUTE MONOCYTES (test cod e = 1068) 0.28 K/UL ABSOLUTE EOSINOPHILS (test c ode = 1040) 0.10 K/UL ABSOLUTE BASOPHILS (test cod e = 1069) 0.03 K/UL ABS IMMATURE GRANULOCYTES (t est code = 1020) 0.06 K/UL ABS NUCLEATED RBCS (test cod e = 08378) 0.00 K/UL COMPREHENSIVE METABOLIC [id number] 00:00:00* Test Item Value Reference Range Interpretation Comme nts GLUCOSE (test code = 2217) 589 MG/DL BUN (test code = 2208) 18 MG/DL CREATININE (test code = 2214) 0.59 MG/DL eGFR AMER. (test cod e = 93782) 131 ML/MIN/1.73 eGFR NON- AMER. (test code = 22450) 113 ML/MIN/1.73 CALC BUN/CREAT (test code = 2235) 31 RATIO SODIUM (test code = 2231) 128 MEQ/L POTASSIUM (test code = 2228) 4.4 MEQ/L CHLORIDE (test code = 2215) 87 MEQ/L CARBON DIOXIDE (test code = 2206) 21 MEQ/L CALCIUM (test code = 2209) 9.6 MG/DL PROTEIN, TOTAL (test code = 2229) 7.0 G/DL ALBUMIN (test code = 2201) 4.5 G/DL CALC GLOBULIN (test code = 2240) 2.5 G/DL CALC A/G RATIO (test code = 2234) 1.8 RATIO BILIRUBIN, TOTAL (test code = 2207) 0.2 MG/DL ALKALINE PHOSPHATASE (test code = 2204) 225 U/L AST (test code = 2218) <5 U/L ALT (test code = 2219) 28 U/L LIPID PANEL WITH REFLEX DIRECT [id number] 00:00:00* Test Item Value Reference Range Interpretation Comme nts CHOLESTEROL (test code = 2210) 294 MG/DL TRIGLYCERIDES (test code = 2232) 1828 MG/DL HDL CHOLESTEROL (test code = 2220) 42 MG/DL CALC LDL CHOL (test code = 2237) (NOTE) MG/DL RISK RATIO LDL/HDL (test cod e = 2238) (NOTE) RATIO [id number] 00:00:00* Test Item Value Reference Range Interpretation Comme nts FERRITIN (test code = 2075) 99 NG/ML SEDIMENTATION [id number] 00:00:00* Test Item Value Reference Range Interpretation Comme nts SEDIMENTATION RATE (test cod e = 1017) 8 MM/HOUR CBC W/AUTO [id number] 00:00:00* Test Item Value Reference Range Interpretation Comme nts WBC (test code = 1001) 8.7 K/UL [...] = 1013) 0.5 % IMMATURE GRANULOCYTES (test code = 1036) 0.8 % NUCLEATED RBCS (test code = 1065) 0.0 /100WBC'S PLATELET COUNT (test code = 1015) 258 K/UL ABSOLUTE NEUTROPHILS (test c ode = 1066) 5.16 K/UL ABSOLUTE LYMPHOCYTES (test c ode = 1067) 2.61 K/UL ABSOLUTE MONOCYTES (test cod e = 1068) 0.39 K/UL ABSOLUTE EOSINOPHILS (test c ode = 1040) 0.47 K/UL ABSOLUTE BASOPHILS (test cod e = 1069) 0.04 K/UL ABS IMMATURE GRANULOCYTES (t est code = 1020) 0.07 K/UL ABS NUCLEATED RBCS (test cod e = 49322) 0.00 K/UL LIZBETH NON-REFLEX TO [id number] 00:00:00* Test Item Value Reference Range Interpretation Comme nts ANTI-NUCLEAR ANTIBODIES (gavi t code = 3506) NEGATIVE [id number] 00:00:00* Test Item Value Reference Range Interpretation Comme nts FERRITIN (test code = 2075) 99 NG/ML SEDIMENTATION [id number] 00:00:00* Test Item Value Reference Range Interpretation Comme nts SEDIMENTATION RATE (test cod e = 1017) 8 MM/HOUR [id number] 00:00:00* Test Item Value Reference Range Interpretation Comme nts TSH, THIRD GENERATION (test code = 2821) 1.210 UIU/ML CBC W/AUTO [id number] 00:00:00* Test Item Value Reference Range Interpretation Comme nts WBC (test code = 1001) 8.7 K/UL [...] = 1013) 0.5 % IMMATURE GRANULOCYTES (test code = 1036) 0.8 % NUCLEATED RBCS (test code = 1065) 0.0 /100WBC'S PLATELET COUNT (test code = 1015) 258 K/UL ABSOLUTE NEUTROPHILS (test c ode = 1066) 5.16 K/UL ABSOLUTE LYMPHOCYTES (test c ode = 1067) 2.61 K/UL ABSOLUTE MONOCYTES (test cod e = 1068) 0.39 K/UL ABSOLUTE EOSINOPHILS (test c ode = 1040) 0.47 K/UL ABSOLUTE BASOPHILS (test cod e = 1069) 0.04 K/UL ABS IMMATURE GRANULOCYTES (t est code = 1020) 0.07 K/UL ABS NUCLEATED RBCS (test cod e = 47417) 0.00 K/UL LIZBETH NON-REFLEX TO [id number] 00:00:00* Test Item Value Reference Range Interpretation Comme nts ANTI-NUCLEAR ANTIBODIES (gavi t code = 3506) NEGATIVE [id number] 00:00:00* Test Item Value Reference Range Interpretation Comme nts FERRITIN (test code = 2075) 99 NG/ML SEDIMENTATION [id number] 00:00:00* Test Item Value Reference Range Interpretation Comme nts SEDIMENTATION RATE (test cod e = 1017) 8 MM/HOUR [id number] 00:00:00* Test Item Value Reference Range Interpretation Comme nts TSH, THIRD GENERATION (test code = 2821) 1.210 UIU/ML CBC W/AUTO [id number] 00:00:00* Test Item Value Reference Range Interpretation Comme nts WBC (test code = 1001) 8.7 K/UL [...] = 1013) 0.5 % IMMATURE GRANULOCYTES (test code = 1036) 0.8 % NUCLEATED RBCS (test code = 1065) 0.0 /100WBC'S PLATELET COUNT (test code = 1015) 258 K/UL ABSOLUTE NEUTROPHILS (test c ode = 1066) 5.16 K/UL ABSOLUTE LYMPHOCYTES (test c ode = 1067) 2.61 K/UL ABSOLUTE MONOCYTES (test cod e = 1068) 0.39 K/UL ABSOLUTE EOSINOPHILS (test c ode = 1040) 0.47 K/UL ABSOLUTE BASOPHILS (test cod e = 1069) 0.04 K/UL ABS IMMATURE GRANULOCYTES (t est code = 1020) 0.07 K/UL ABS NUCLEATED RBCS (test cod e = 66945) 0.00 K/UL LIZBETH NON-REFLEX TO [id number] 00:00:00* Test Item Value Reference Range Interpretation Comme nts ANTI-NUCLEAR ANTIBODIES (gavi t code = 3506) NEGATIVE [id number] 00:00:00* Test Item Value Reference Range Interpretation Comme nts FERRITIN (test code = 2075) 99 NG/ML SEDIMENTATION [id number] 00:00:00* Test Item Value Reference Range Interpretation Comme nts SEDIMENTATION RATE (test cod e = 1017) 8 MM/HOUR [id number] 00:00:00* Test Item Value Reference Range Interpretation Comme nts TSH, THIRD GENERATION (test code = 2821) 1.210 UIU/ML CBC W/AUTO [id number] 00:00:00* Test Item Value Reference Range Interpretation Comme nts WBC (test code = 1001) 8.7 K/UL [...] = 1013) 0.5 % IMMATURE GRANULOCYTES (test code = 1036) 0.8 % NUCLEATED RBCS (test code = 1065) 0.0 /100WBC'S PLATELET COUNT (test code = 1015) 258 K/UL ABSOLUTE NEUTROPHILS (test c ode = 1066) 5.16 K/UL ABSOLUTE LYMPHOCYTES (test c ode = 1067) 2.61 K/UL ABSOLUTE MONOCYTES (test cod e = 1068) 0.39 K/UL ABSOLUTE EOSINOPHILS (test c ode = 1040) 0.47 K/UL ABSOLUTE BASOPHILS (test cod e = 1069) 0.04 K/UL ABS IMMATURE GRANULOCYTES (t est code = 1020) 0.07 K/UL ABS NUCLEATED RBCS (test cod e = 59504) 0.00 K/UL LIZBETH NON-REFLEX TO [id number] 00:00:00* Test Item Value Reference Range Interpretation Comme nts ANTI-NUCLEAR ANTIBODIES (gavi t code = 3506) NEGATIVE [id number] 00:00:00* Test Item Value Reference Range Interpretation Comme nts FERRITIN (test code = 2075) 99 NG/ML SEDIMENTATION [id number] 00:00:00* Test Item Value Reference Range Interpretation Comme nts SEDIMENTATION RATE (test cod e = 1017) 8 MM/HOUR [id number] 00:00:00* Test Item Value Reference Range Interpretation Comme nts TSH, THIRD GENERATION (test code = 2821) 1.210 UIU/ML CBC W/AUTO [id number] 00:00:00* Test Item Value Reference Range Interpretation Comme nts WBC (test code = 1001) 8.7 K/UL [...] = 1013) 0.5 % IMMATURE GRANULOCYTES (test code = 1036) 0.8 % NUCLEATED RBCS (test code = 1065) 0.0 /100WBC'S PLATELET COUNT (test code = 1015) 258 K/UL ABSOLUTE NEUTROPHILS (test c ode = 1066) 5.16 K/UL ABSOLUTE LYMPHOCYTES (test c ode = 1067) 2.61 K/UL ABSOLUTE MONOCYTES (test cod e = 1068) 0.39 K/UL ABSOLUTE EOSINOPHILS (test c ode = 1040) 0.47 K/UL ABSOLUTE BASOPHILS (test cod e = 1069) 0.04 K/UL ABS IMMATURE GRANULOCYTES (t est code = 1020) 0.07 K/UL ABS NUCLEATED RBCS (test cod e = 96031) 0.00 K/UL LIZBETH NON-REFLEX TO [id number] 00:00:00* Test Item Value Reference Range Interpretation Comme nts ANTI-NUCLEAR ANTIBODIES (gavi t code = 3506) NEGATIVE [id number] 00:00:00* Test Item Value Reference Range Interpretation Comme nts FERRITIN (test code = 2075) 99 NG/ML SEDIMENTATION [id number] 00:00:00* Test Item Value Reference Range Interpretation Comme nts SEDIMENTATION RATE (test cod e = 1017) 8 MM/HOUR [id number] 00:00:00* Test Item Value Reference Range Interpretation Comme nts TSH, THIRD GENERATION (test code = 2821) 1.210 UIU/ML [id number] 00:00:00* Test Item Value Reference Range Interpretation Comme nts TSH, THIRD GENERATION (test code = 2821) 1.210 UIU/ML CBC W/AUTO [id number] 00:00:00* Test Item Value Reference Range Interpretation Comme nts WBC (test code = 1001) 8.7 K/UL [...] = 1013) 0.5 % IMMATURE GRANULOCYTES (test code = 1036) 0.8 % NUCLEATED RBCS (test code = 1065) 0.0 /100WBC'S PLATELET COUNT (test code = 1015) 258 K/UL ABSOLUTE NEUTROPHILS (test c ode = 1066) 5.16 K/UL ABSOLUTE LYMPHOCYTES (test c ode = 1067) 2.61 K/UL ABSOLUTE MONOCYTES (test cod e = 1068) 0.39 K/UL ABSOLUTE EOSINOPHILS (test c ode = 1040) 0.47 K/UL ABSOLUTE BASOPHILS (test cod e = 1069) 0.04 K/UL ABS IMMATURE GRANULOCYTES (t est code = 1020) 0.07 K/UL ABS NUCLEATED RBCS (test cod e = 33945) 0.00 K/UL LIZBETH NON-REFLEX TO [id number] 00:00:00* Test Item Value Reference Range Interpretation Comme nts ANTI-NUCLEAR ANTIBODIES (gavi t code = 3506) NEGATIVE [id number] 00:00:00* Test Item Value Reference Range Interpretation Comme nts LIPASE (test code = 8) 171 U/L [id number] 00:00:00* Test Item Value Reference Range Interpretation Comme nts AMYLASE (test code = 2205) 79 U/L [id number] 00:00:00* Test Item Value Reference Range Interpretation Comme nts LIPASE (test code = 8) 171 U/L [id number] 00:00:00* Test Item Value Reference Range Interpretation Comme nts AMYLASE (test code = 2205) 79 U/L [id number] 00:00:00* Test Item Value Reference Range Interpretation Comme nts LIPASE (test code = 8) 171 U/L [id number] 00:00:00* Test Item Value Reference Range Interpretation Comme nts AMYLASE (test code = 2205) 79 U/L [id number] 00:00:00* Test Item Value Reference Range Interpretation Comme nts LIPASE (test code = 8) 171 U/L [id number] 00:00:00* Test Item Value Reference Range Interpretation Comme nts AMYLASE (test code = 2205) 79 U/L [id number] 00:00:00* Test Item Value Reference Range Interpretation Comme nts LIPASE (test code = 8) 171 U/L [id number] 00:00:00* Test Item Value Reference Range Interpretation Comme nts AMYLASE (test code = 2205) 79 U/L [id number] 00:00:00* Test Item Value Reference Range Interpretation Comme nts AMYLASE (test code = 2205) 79 U/L [id number] 00:00:00* Test Item Value Reference Range Interpretation Comme nts LIPASE (test code = 8) 171 U/L MICROALBUMIN/CREATININE, RANDOM AND [id number] 00:00:00* Test Item Value Reference Range Interpretation Comme nts CREATININE, URINE, CONC. (te st code = 2072) 17.1 MG/DL ALBUMIN, URINE, RANDOM (test code = 90861) 2.1 MG/DL CALC ALBUMIN/CREAT, RND (gavi t code = 14023) 123 MG/G LIPID [id number] 00:00:00* Test Item Value Reference Range Interpretation Comme nts CHOLESTEROL (test code = 2210) 299 MG/DL TRIGLYCERIDES (test code = 2232) 1161 MG/DL HDL CHOLESTEROL (test code = 2220) 40 MG/DL CALC LDL CHOL (test code = 2237) (NOTE) MG/DL RISK RATIO LDL/HDL (test cod e = 2238) (NOTE) RATIO COMPREHENSIVE METABOLIC [id number] 00:00:00* Test Item Value Reference Range Interpretation Comme nts GLUCOSE (test code = 2217) 359 MG/DL BUN (test code = 2208) 8 MG/DL CREATININE (test code = 2214) 0.44 MG/DL eGFR AMER. (test cod e = 67923) 144 ML/MIN/1.73 eGFR NON- AMER. (test code = 76693) 125 ML/MIN/1.73 CALC BUN/CREAT (test code = 2235) 18 RATIO SODIUM (test code = 2231) 133 MEQ/L POTASSIUM (test code = 2228) 4.0 MEQ/L CHLORIDE (test code = 2215) 94 MEQ/L CARBON DIOXIDE (test code = 2206) 25 MEQ/L CALCIUM (test code = 2209) 9.7 MG/DL PROTEIN, TOTAL (test code = 2229) 7.2 G/DL ALBUMIN (test code = 2201) 4.4 G/DL CALC GLOBULIN (test code = 2240) 2.8 G/DL CALC A/G RATIO (test code = 2234) 1.6 RATIO BILIRUBIN, TOTAL (test code = 2207) 0.4 MG/DL ALKALINE PHOSPHATASE (test code = 2204) 169 U/L AST (test code = 2218) 18 U/L ALT (test code = 2219) 31 U/L MICROALBUMIN/CREATININE, RANDOM AND [id number] 00:00:00* Test Item Value Reference Range Interpretation Comme nts CREATININE, URINE, CONC. (te st code = 2072) 17.1 MG/DL ALBUMIN, URINE, RANDOM (test code = 90306) 2.1 MG/DL CALC ALBUMIN/CREAT, RND (gavi t code = 08085) 123 MG/G HEMOGLOBIN [id number] 00:00:00* Test Item Value Reference Range Interpretation Comme nts HEMOGLOBIN A1c (test code = 41268) 14.5 % LIPID [id number] 00:00:00* Test Item Value Reference Range Interpretation Comme nts CHOLESTEROL (test code = 2210) 299 MG/DL TRIGLYCERIDES (test code = 2232) 1161 MG/DL HDL CHOLESTEROL (test code = 2220) 40 MG/DL CALC LDL CHOL (test code = 2237) (NOTE) MG/DL RISK RATIO LDL/HDL (test cod e = 2238) (NOTE) RATIO COMPREHENSIVE METABOLIC [id number] 00:00:00* Test Item Value Reference Range Interpretation Comme nts GLUCOSE (test code = 2217) 359 MG/DL BUN (test code = 2208) 8 MG/DL CREATININE (test code = 2214) 0.44 MG/DL eGFR AMER. (test cod e = 12611) 144 ML/MIN/1.73 eGFR NON- AMER. (test code = 18023) 125 ML/MIN/1.73 CALC BUN/CREAT (test code = 2235) 18 RATIO SODIUM (test code = 2231) 133 MEQ/L POTASSIUM (test code = 2228) 4.0 MEQ/L CHLORIDE (test code = 2215) 94 MEQ/L CARBON DIOXIDE (test code = 2206) 25 MEQ/L CALCIUM (test code = 2209) 9.7 MG/DL PROTEIN, TOTAL (test code = 2229) 7.2 G/DL ALBUMIN (test code = 2201) 4.4 G/DL CALC GLOBULIN (test code = 2240) 2.8 G/DL CALC A/G RATIO (test code = 2234) 1.6 RATIO BILIRUBIN, TOTAL (test code = 2207) 0.4 MG/DL ALKALINE PHOSPHATASE (test code = 2204) 169 U/L AST (test code = 2218) 18 U/L ALT (test code = 2219) 31 U/L MICROALBUMIN/CREATININE, RANDOM AND [id number] 00:00:00* Test Item Value Reference Range Interpretation Comme nts CREATININE, URINE, CONC. (te st code = 2072) 17.1 MG/DL ALBUMIN, URINE, RANDOM (test code = 68441) 2.1 MG/DL CALC ALBUMIN/CREAT, RND (gavi t code = 64208) 123 MG/G HEMOGLOBIN [id number] 00:00:00* Test Item Value Reference Range Interpretation Comme nts HEMOGLOBIN A1c (test code = 17992) 14.5 % LIPID [id number] 00:00:00* Test Item Value Reference Range Interpretation Comme nts CHOLESTEROL (test code = 2210) 299 MG/DL TRIGLYCERIDES (test code = 2232) 1161 MG/DL HDL CHOLESTEROL (test code = 2220) 40 MG/DL CALC LDL CHOL (test code = 2237) (NOTE) MG/DL RISK RATIO LDL/HDL (test cod e = 2238) (NOTE) RATIO COMPREHENSIVE METABOLIC [id number] 00:00:00* Test Item Value Reference Range Interpretation Comme nts GLUCOSE (test code = 2217) 359 MG/DL BUN (test code = 2208) 8 MG/DL CREATININE (test code = 2214) 0.44 MG/DL eGFR AMER. (test cod e = 61559) 144 ML/MIN/1.73 eGFR NON- AMER. (test code = 41052) 125 ML/MIN/1.73 CALC BUN/CREAT (test code = 2235) 18 RATIO SODIUM (test code = 2231) 133 MEQ/L POTASSIUM (test code = 2228) 4.0 MEQ/L CHLORIDE (test code = 2215) 94 MEQ/L CARBON DIOXIDE (test code = 2206) 25 MEQ/L CALCIUM (test code = 2209) 9.7 MG/DL PROTEIN, TOTAL (test code = 2229) 7.2 G/DL ALBUMIN (test code = 2201) 4.4 G/DL CALC GLOBULIN (test code = 2240) 2.8 G/DL CALC A/G RATIO (test code = 2234) 1.6 RATIO BILIRUBIN, TOTAL (test code = 2207) 0.4 MG/DL ALKALINE PHOSPHATASE (test code = 2204) 169 U/L AST (test code = 2218) 18 U/L ALT (test code = 2219) 31 U/L MICROALBUMIN/CREATININE, RANDOM AND [id number] 00:00:00* Test Item Value Reference Range Interpretation Comme nts CREATININE, URINE, CONC. (te st code = 2072) 17.1 MG/DL ALBUMIN, URINE, RANDOM (test code = 26275) 2.1 MG/DL CALC ALBUMIN/CREAT, RND (gavi t code = 48924) 123 MG/G HEMOGLOBIN [id number] 00:00:00* Test Item Value Reference Range Interpretation Comme nts HEMOGLOBIN A1c (test code = 79101) 14.5 % LIPID [id number] 00:00:00* Test Item Value Reference Range Interpretation Comme nts CHOLESTEROL (test code = 2210) 299 MG/DL TRIGLYCERIDES (test code = 2232) 1161 MG/DL HDL CHOLESTEROL (test code = 2220) 40 MG/DL CALC LDL CHOL (test code = 2237) (NOTE) MG/DL RISK RATIO LDL/HDL (test cod e = 2238) (NOTE) RATIO COMPREHENSIVE METABOLIC [id number] 00:00:00* Test Item Value Reference Range Interpretation Comme nts GLUCOSE (test code = 2217) 359 MG/DL BUN (test code = 2208) 8 MG/DL CREATININE (test code = 2214) 0.44 MG/DL eGFR AMER. (test cod e = 83082) 144 ML/MIN/1.73 eGFR NON- AMER. (test code = 89069) 125 ML/MIN/1.73 CALC BUN/CREAT (test code = 2235) 18 RATIO SODIUM (test code = 2231) 133 MEQ/L POTASSIUM (test code = 2228) 4.0 MEQ/L CHLORIDE (test code = 2215) 94 MEQ/L CARBON DIOXIDE (test code = 2206) 25 MEQ/L CALCIUM (test code = 2209) 9.7 MG/DL PROTEIN, TOTAL (test code = 2229) 7.2 G/DL ALBUMIN (test code = 2201) 4.4 G/DL CALC GLOBULIN (test code = 2240) 2.8 G/DL CALC A/G RATIO (test code = 2234) 1.6 RATIO BILIRUBIN, TOTAL (test code = 2207) 0.4 MG/DL ALKALINE PHOSPHATASE (test code = 2204) 169 U/L AST (test code = 2218) 18 U/L ALT (test code = 2219) 31 U/L MICROALBUMIN/CREATININE, RANDOM AND [id number] 00:00:00* Test Item Value Reference Range Interpretation Comme nts CREATININE, URINE, CONC. (te st code = 2072) 17.1 MG/DL ALBUMIN, URINE, RANDOM (test code = 84828) 2.1 MG/DL CALC ALBUMIN/CREAT, RND (gavi t code = 42018) 123 MG/G HEMOGLOBIN [id number] 00:00:00* Test Item Value Reference Range Interpretation Comme nts HEMOGLOBIN A1c (test code = 03402) 14.5 % LIPID [id number] 00:00:00* Test Item Value Reference Range Interpretation Comme nts CHOLESTEROL (test code = 2210) 299 MG/DL TRIGLYCERIDES (test code = 2232) 1161 MG/DL HDL CHOLESTEROL (test code = 2220) 40 MG/DL CALC LDL CHOL (test code = 2237) (NOTE) MG/DL RISK RATIO LDL/HDL (test cod e = 2238) (NOTE) RATIO COMPREHENSIVE METABOLIC [id number] 00:00:00* Test Item Value Reference Range Interpretation Comme nts GLUCOSE (test code = 2217) 359 MG/DL BUN (test code = 2208) 8 MG/DL CREATININE (test code = 2214) 0.44 MG/DL eGFR AMER. (test cod e = 97277) 144 ML/MIN/1.73 eGFR NON- AMER. (test code = 86532) 125 ML/MIN/1.73 CALC BUN/CREAT (test code = 2235) 18 RATIO SODIUM (test code = 2231) 133 MEQ/L POTASSIUM (test code = 2228) 4.0 MEQ/L CHLORIDE (test code = 2215) 94 MEQ/L CARBON DIOXIDE (test code = 2206) 25 MEQ/L CALCIUM (test code = 2209) 9.7 MG/DL PROTEIN, TOTAL (test code = 2229) 7.2 G/DL ALBUMIN (test code = 2201) 4.4 G/DL CALC GLOBULIN (test code = 2240) 2.8 G/DL CALC A/G RATIO (test code = 2234) 1.6 RATIO BILIRUBIN, TOTAL (test code = 2207) 0.4 MG/DL ALKALINE PHOSPHATASE (test code = 2204) 169 U/L AST (test code = 2218) 18 U/L ALT (test code = 2219) 31 U/L MICROALBUMIN/CREATININE, RANDOM AND [id number] 00:00:00* Test Item Value Reference Range Interpretation Comme nts CREATININE, URINE, CONC. (te st code = 2072) 17.1 MG/DL ALBUMIN, URINE, RANDOM (test code = 09067) 2.1 MG/DL CALC ALBUMIN/CREAT, RND (gavi t code = 19050) 123 MG/G HEMOGLOBIN [id number] 00:00:00* Test Item Value Reference Range Interpretation Comme nts HEMOGLOBIN A1c (test code = 74232) 14.5 % HEMOGLOBIN [id number] 00:00:00* Test Item Value Reference Range Interpretation Comme nts HEMOGLOBIN A1c (test code = 83195) 14.5 % LIPID [id number] 00:00:00* Test Item Value Reference Range Interpretation Comme nts CHOLESTEROL (test code = 2210) 299 MG/DL TRIGLYCERIDES (test code = 2232) 1161 MG/DL HDL CHOLESTEROL (test code = 2220) 40 MG/DL CALC LDL CHOL (test code = 2237) (NOTE) MG/DL RISK RATIO LDL/HDL (test cod e = 2238) (NOTE) RATIO COMPREHENSIVE METABOLIC [id number] 00:00:00* Test Item Value Reference Range Interpretation Comme nts GLUCOSE (test code = 2217) 359 MG/DL BUN (test code = 2208) 8 MG/DL CREATININE (test code = 2214) 0.44 MG/DL eGFR AMER. (test cod e = 03963) 144 ML/MIN/1.73 eGFR NON- AMER. (test code = 61376) 125 ML/MIN/1.73 CALC BUN/CREAT (test code = 2235) 18 RATIO SODIUM (test code = 2231) 133 MEQ/L POTASSIUM (test code = 2228) 4.0 MEQ/L CHLORIDE (test code = 2215) 94 MEQ/L CARBON DIOXIDE (test code = 2206) 25 MEQ/L CALCIUM (test code = 2209) 9.7 MG/DL PROTEIN, TOTAL (test code = 2229) 7.2 G/DL ALBUMIN (test code = 2201) 4.4 G/DL CALC GLOBULIN (test code = 2240) 2.8 G/DL CALC A/G RATIO (test code = 2234) 1.6 RATIO BILIRUBIN, TOTAL (test code = 2207) 0.4 MG/DL ALKALINE PHOSPHATASE (test code = 2204) 169 U/L AST (test code = 2218) 18 U/L ALT (test code = 2219) 31 U/L LIPID [id number] 00:00:00* Test Item Value Reference Range Interpretation Comme nts CHOLESTEROL (test code = 2210) 214 MG/DL TRIGLYCERIDES (test code = 2232) 581 MG/DL HDL CHOLESTEROL (test code = 2220) 38 MG/DL CALC LDL CHOL (test code = 2237) (NOTE) MG/DL RISK RATIO LDL/HDL (test cod e = 2238) (NOTE) RATIO HEMOGLOBIN [id number] 00:00:00* Test Item Value Reference Range Interpretation Comme nts HEMOGLOBIN A1c (test code = 02139) 12.4 % COMPREHENSIVE METABOLIC [id number] 00:00:00* Test Item Value Reference Range Interpretation Comme nts GLUCOSE (test code = 2217) 302 MG/DL BUN (test code = 2208) 9 MG/DL CREATININE (test code = 2214) 0.55 MG/DL eGFR AMER. (test cod e = 33960) 135 ML/MIN/1.73 eGFR NON- AMER. (test code = 99013) 117 ML/MIN/1.73 CALC BUN/CREAT (test code = 2235) 16 RATIO SODIUM (test code = 2231) 138 MEQ/L POTASSIUM (test code = 2228) 4.2 MEQ/L CHLORIDE (test code = 2215) 100 MEQ/L CARBON DIOXIDE (test code = 2206) 24 MEQ/L CALCIUM (test code = 2209) 9.8 MG/DL PROTEIN, TOTAL (test code = 2229) 7.5 G/DL ALBUMIN (test code = 2201) 4.6 G/DL CALC GLOBULIN (test code = 2240) 2.9 G/DL CALC A/G RATIO (test code = 2234) 1.6 RATIO BILIRUBIN, TOTAL (test code = 2207) 0.8 MG/DL ALKALINE PHOSPHATASE (test code = 2204) 105 U/L AST (test code = 2218) 22 U/L ALT (test code = 2219) 39 U/L LIPID [id number] 00:00:00* Test Item Value Reference Range Interpretation Comme nts CHOLESTEROL (test code = 2210) 214 MG/DL TRIGLYCERIDES (test code = 2232) 581 MG/DL HDL CHOLESTEROL (test code = 2220) 38 MG/DL CALC LDL CHOL (test code = 2237) (NOTE) MG/DL RISK RATIO LDL/HDL (test cod e = 2238) (NOTE) RATIO HEMOGLOBIN [id number] 00:00:00* Test Item Value Reference Range Interpretation Comme nts HEMOGLOBIN A1c (test code = 64733) 12.4 % COMPREHENSIVE METABOLIC [id number] 00:00:00* Test Item Value Reference Range Interpretation Comme nts GLUCOSE (test code = 2217) 302 MG/DL BUN (test code = 2208) 9 MG/DL CREATININE (test code = 2214) 0.55 MG/DL eGFR AMER. (test cod e = 36425) 135 ML/MIN/1.73 eGFR NON- AMER. (test code = 17214) 117 ML/MIN/1.73 CALC BUN/CREAT (test code = 2235) 16 RATIO SODIUM (test code = 2231) 138 MEQ/L POTASSIUM (test code = 2228) 4.2 MEQ/L CHLORIDE (test code = 2215) 100 MEQ/L CARBON DIOXIDE (test code = 2206) 24 MEQ/L CALCIUM (test code = 2209) 9.8 MG/DL PROTEIN, TOTAL (test code = 2229) 7.5 G/DL ALBUMIN (test code = 2201) 4.6 G/DL CALC GLOBULIN (test code = 2240) 2.9 G/DL CALC A/G RATIO (test code = 2234) 1.6 RATIO BILIRUBIN, TOTAL (test code = 2207) 0.8 MG/DL ALKALINE PHOSPHATASE (test code = 2204) 105 U/L AST (test code = 2218) 22 U/L ALT (test code = 2219) 39 U/L LIPID [id number] 00:00:00* Test Item Value Reference Range Interpretation Comme nts CHOLESTEROL (test code = 2210) 214 MG/DL TRIGLYCERIDES (test code = 2232) 581 MG/DL HDL CHOLESTEROL (test code = 2220) 38 MG/DL CALC LDL CHOL (test code = 2237) (NOTE) MG/DL RISK RATIO LDL/HDL (test cod e = 2238) (NOTE) RATIO HEMOGLOBIN [id number] 00:00:00* Test Item Value Reference Range Interpretation Comme nts HEMOGLOBIN A1c (test code = 49351) 12.4 % COMPREHENSIVE METABOLIC [id number] 00:00:00* Test Item Value Reference Range Interpretation Comme nts GLUCOSE (test code = 2217) 302 MG/DL BUN (test code = 2208) 9 MG/DL CREATININE (test code = 2214) 0.55 MG/DL eGFR AMER. (test cod e = 41034) 135 ML/MIN/1.73 eGFR NON- AMER. (test code = 96448) 117 ML/MIN/1.73 CALC BUN/CREAT (test code = 2235) 16 RATIO SODIUM (test code = 2231) 138 MEQ/L POTASSIUM (test code = 2228) 4.2 MEQ/L CHLORIDE (test code = 2215) 100 MEQ/L CARBON DIOXIDE (test code = 2206) 24 MEQ/L CALCIUM (test code = 2209) 9.8 MG/DL PROTEIN, TOTAL (test code = 2229) 7.5 G/DL ALBUMIN (test code = 2201) 4.6 G/DL CALC GLOBULIN (test code = 2240) 2.9 G/DL CALC A/G RATIO (test code = 2234) 1.6 RATIO BILIRUBIN, TOTAL (test code = 2207) 0.8 MG/DL ALKALINE PHOSPHATASE (test code = 2204) 105 U/L AST (test code = 2218) 22 U/L ALT (test code = 2219) 39 U/L LIPID [id number] 00:00:00* Test Item Value Reference Range Interpretation Comme nts CHOLESTEROL (test code = 2210) 214 MG/DL TRIGLYCERIDES (test code = 2232) 581 MG/DL HDL CHOLESTEROL (test code = 2220) 38 MG/DL CALC LDL CHOL (test code = 2237) (NOTE) MG/DL RISK RATIO LDL/HDL (test cod e = 2238) (NOTE) RATIO HEMOGLOBIN [id number] 00:00:00* Test Item Value Reference Range Interpretation Comme nts HEMOGLOBIN A1c (test code = 12947) 12.4 % COMPREHENSIVE METABOLIC [id number] 00:00:00* Test Item Value Reference Range Interpretation Comme nts GLUCOSE (test code = 2217) 302 MG/DL BUN (test code = 2208) 9 MG/DL CREATININE (test code = 2214) 0.55 MG/DL eGFR AMER. (test cod e = 59476) 135 ML/MIN/1.73 eGFR NON- AMER. (test code = 60347) 117 ML/MIN/1.73 CALC BUN/CREAT (test code = 2235) 16 RATIO SODIUM (test code = 2231) 138 MEQ/L POTASSIUM (test code = 2228) 4.2 MEQ/L CHLORIDE (test code = 2215) 100 MEQ/L CARBON DIOXIDE (test code = 2206) 24 MEQ/L CALCIUM (test code = 2209) 9.8 MG/DL PROTEIN, TOTAL (test code = 2229) 7.5 G/DL ALBUMIN (test code = 2201) 4.6 G/DL CALC GLOBULIN (test code = 2240) 2.9 G/DL CALC A/G RATIO (test code = 2234) 1.6 RATIO BILIRUBIN, TOTAL (test code = 2207) 0.8 MG/DL ALKALINE PHOSPHATASE (test code = 2204) 105 U/L AST (test code = 2218) 22 U/L ALT (test code = 2219) 39 U/L LIPID [id number] 00:00:00* Test Item Value Reference Range Interpretation Comme nts CHOLESTEROL (test code = 2210) 214 MG/DL TRIGLYCERIDES (test code = 2232) 581 MG/DL HDL CHOLESTEROL (test code = 2220) 38 MG/DL CALC LDL CHOL (test code = 2237) (NOTE) MG/DL RISK RATIO LDL/HDL (test cod e = 2238) (NOTE) RATIO HEMOGLOBIN [id number] 00:00:00* Test Item Value Reference Range Interpretation Comme nts HEMOGLOBIN A1c (test code = 55250) 12.4 % COMPREHENSIVE METABOLIC [id number] 00:00:00* Test Item Value Reference Range Interpretation Comme nts GLUCOSE (test code = 2217) 302 MG/DL BUN (test code = 2208) 9 MG/DL CREATININE (test code = 2214) 0.55 MG/DL eGFR AMER. (test cod e = 37395) 135 ML/MIN/1.73 eGFR NON- AMER. (test code = 79513) 117 ML/MIN/1.73 CALC BUN/CREAT (test code = 2235) 16 RATIO SODIUM (test code = 2231) 138 MEQ/L POTASSIUM (test code = 2228) 4.2 MEQ/L CHLORIDE (test code = 2215) 100 MEQ/L CARBON DIOXIDE (test code = 2206) 24 MEQ/L CALCIUM (test code = 2209) 9.8 MG/DL PROTEIN, TOTAL (test code = 2229) 7.5 G/DL ALBUMIN (test code = 2201) 4.6 G/DL CALC GLOBULIN (test code = 2240) 2.9 G/DL CALC A/G RATIO (test code = 2234) 1.6 RATIO BILIRUBIN, TOTAL (test code = 2207) 0.8 MG/DL ALKALINE PHOSPHATASE (test code = 2204) 105 U/L AST (test code = 2218) 22 U/L ALT (test code = 2219) 39 U/L COMPREHENSIVE METABOLIC [id number] 00:00:00* Test Item Value Reference Range Interpretation Comme nts GLUCOSE (test code = 2217) 302 MG/DL BUN (test code = 2208) 9 MG/DL CREATININE (test code = 2214) 0.55 MG/DL eGFR AMER. (test cod e = 61738) 135 ML/MIN/1.73 eGFR NON- AMER. (test code = 27436) 117 ML/MIN/1.73 CALC BUN/CREAT (test code = 2235) 16 RATIO SODIUM (test code = 2231) 138 MEQ/L POTASSIUM (test code = 2228) 4.2 MEQ/L CHLORIDE (test code = 2215) 100 MEQ/L CARBON DIOXIDE (test code = 2206) 24 MEQ/L CALCIUM (test code = 2209) 9.8 MG/DL PROTEIN, TOTAL (test code = 2229) 7.5 G/DL ALBUMIN (test code = 2201) 4.6 G/DL CALC GLOBULIN (test code = 2240) 2.9 G/DL CALC A/G RATIO (test code = 2234) 1.6 RATIO BILIRUBIN, TOTAL (test code = 2207) 0.8 MG/DL ALKALINE PHOSPHATASE (test code = 2204) 105 U/L AST (test code = 2218) 22 U/L ALT (test code = 2219) 39 U/L LIPID [id number] 00:00:00* Test Item Value Reference Range Interpretation Comme nts CHOLESTEROL (test code = 2210) 214 MG/DL TRIGLYCERIDES (test code = 2232) 581 MG/DL HDL CHOLESTEROL (test code = 2220) 38 MG/DL CALC LDL CHOL (test code = 2237) (NOTE) MG/DL RISK RATIO LDL/HDL (test cod e = 2238) (NOTE) RATIO HEMOGLOBIN [id number] 00:00:00* Test Item Value Reference Range Interpretation Comme nts HEMOGLOBIN A1c (test code = 73635) 12.4 % SARS-CoV-2 (COVID-19) by RT-PCR (HIGH RISK)2019-12-26 00:00:00* Test Item Value Reference Range Interpretation Comme nts SARS-CoV-2 INTERPRETATION (t est code = 71446) NEGATIVE SOURCE (test code = 63223) NOT SPECIFIED SARS-CoV-2 (COVID-19) by RT-PCR (HIGH RISK)2019-12-26 00:00:00* Test Item Value Reference Range Interpretation Comme nts SARS-CoV-2 INTERPRETATION (t est code = 44427) NEGATIVE SOURCE (test code = 50152) NOT SPECIFIED SARS-CoV-2 (COVID-19) by RT-PCR (HIGH RISK)2019-12-26 00:00:00* Test Item Value Reference Range Interpretation Comme nts SARS-CoV-2 INTERPRETATION (t est code = 24430) NEGATIVE SOURCE (test code = 38527) NOT SPECIFIED SARS-CoV-2 (COVID-19) by RT-PCR (HIGH RISK)2019-12-26 00:00:00* Test Item Value Reference Range Interpretation Comme nts SARS-CoV-2 INTERPRETATION (t est code = 03517) NEGATIVE SOURCE (test code = 82583) NOT SPECIFIED SARS-CoV-2 (COVID-19) by RT-PCR (HIGH RISK)2019-12-26 00:00:00* Test Item Value Reference Range Interpretation Comme nts SARS-CoV-2 INTERPRETATION (t est code = 56165) NEGATIVE SOURCE (test code = 19522) NOT SPECIFIED SARS-CoV-2 (COVID-19) by RT-PCR (HIGH RISK)2019-12-26 00:00:00* Test Item Value Reference Range Interpretation Comme nts SARS-CoV-2 INTERPRETATION (t est code = 78994) NEGATIVE SOURCE (test code = 29138) NOT SPECIFIED ALBUMIN/CREATININE RATIO, RANDOM URINE [ADDED]2019-03-02 00:00:00* Test Item Value Reference Range Interpretation Comme nts CREATININE, URINE, CONC. (te st code = 2072) 182.9 MG/DL ALBUMIN, URINE, RANDOM (test code = 13610) 4.6 MG/DL CALC ALBUMIN/CREAT, RND (gavi t code = 16087) 25 MG/G COMPREHENSIVE METABOLIC PANEL [ADDED]2019-03-02 00:00:00* Test Item Value Reference Range Interpretation Comme nts GLUCOSE (test code = 2217) 132 MG/DL BUN (test code = 2208) 9 MG/DL CREATININE (test code = 2214) 0.56 MG/DL eGFR AMER. (test cod e = 36054) 135 ML/MIN/1.73 eGFR NON- AMER. (test code = 33496) 117 ML/MIN/1.73 CALC BUN/CREAT (test code = 2235) 16 RATIO SODIUM (test code = 2231) 142 MEQ/L POTASSIUM (test code = 2228) 4.1 MEQ/L CHLORIDE (test code = 2215) 101 MEQ/L CARBON DIOXIDE (test code = 2206) 28 MEQ/L CALCIUM (test code = 2209) 9.5 MG/DL PROTEIN, TOTAL (test code = 2229) 7.3 G/DL ALBUMIN (test code = 2201) 4.3 G/DL CALC GLOBULIN (test code = 2240) 3.0 G/DL CALC A/G RATIO (test code = 2234) 1.4 RATIO BILIRUBIN, TOTAL (test code = 2207) 0.3 MG/DL ALKALINE PHOSPHATASE (test code = 2204) 77 U/L AST (test code = 2218) 19 U/L ALT (test code = 2219) 17 U/L LIPID PANEL [ADDED]2019-03-02 00:00:00* Test Item Value Reference Range Interpretation Comme nts CHOLESTEROL (test code = 2210) 206 MG/DL TRIGLYCERIDES (test code = 2232) 340 MG/DL HDL CHOLESTEROL (test code = 2220) 36 MG/DL CALC LDL CHOL (test code = 2237) 102 MG/DL RISK RATIO LDL/HDL (test cod e = 2238) 2.83 RATIO ALBUMIN/CREATININE RATIO, RANDOM URINE [ADDED]2019-03-02 00:00:00* Test Item Value Reference Range Interpretation Comme nts CREATININE, URINE, CONC. (te st code = 2072) 182.9 MG/DL ALBUMIN, URINE, RANDOM (test code = 50133) 4.6 MG/DL CALC ALBUMIN/CREAT, RND (gavi t code = 22833) 25 MG/G HEMOGLOBIN A1c [ADDED]2019-03-02 00:00:00* Test Item Value Reference Range Interpretation Comme nts HEMOGLOBIN A1c (test code = 46756) 7.1 % COMPREHENSIVE METABOLIC PANEL [ADDED]2019-03-02 00:00:00* Test Item Value Reference Range Interpretation Comme nts GLUCOSE (test code = 2217) 132 MG/DL BUN (test code = 2208) 9 MG/DL CREATININE (test code = 2214) 0.56 MG/DL eGFR AMER. (test cod e = 78756) 135 ML/MIN/1.73 eGFR NON- AMER. (test code = 48884) 117 ML/MIN/1.73 CALC BUN/CREAT (test code = 2235) 16 RATIO SODIUM (test code = 2231) 142 MEQ/L POTASSIUM (test code = 2228) 4.1 MEQ/L CHLORIDE (test code = 2215) 101 MEQ/L CARBON DIOXIDE (test code = 2206) 28 MEQ/L CALCIUM (test code = 2209) 9.5 MG/DL PROTEIN, TOTAL (test code = 2229) 7.3 G/DL ALBUMIN (test code = 2201) 4.3 G/DL CALC GLOBULIN (test code = 2240) 3.0 G/DL CALC A/G RATIO (test code = 2234) 1.4 RATIO BILIRUBIN, TOTAL (test code = 2207) 0.3 MG/DL ALKALINE PHOSPHATASE (test code = 2204) 77 U/L AST (test code = 2218) 19 U/L ALT (test code = 2219) 17 U/L LIPID PANEL [ADDED]2019-03-02 00:00:00* Test Item Value Reference Range Interpretation Comme nts CHOLESTEROL (test code = 2210) 206 MG/DL TRIGLYCERIDES (test code = 2232) 340 MG/DL HDL CHOLESTEROL (test code = 2220) 36 MG/DL CALC LDL CHOL (test code = 2237) 102 MG/DL RISK RATIO LDL/HDL (test cod e = 2238) 2.83 RATIO ALBUMIN/CREATININE RATIO, RANDOM URINE [ADDED]2019-03-02 00:00:00* Test Item Value Reference Range Interpretation Comme nts CREATININE, URINE, CONC. (te st code = 2072) 182.9 MG/DL ALBUMIN, URINE, RANDOM (test code = 41884) 4.6 MG/DL CALC ALBUMIN/CREAT, RND (gavi t code = 79661) 25 MG/G HEMOGLOBIN A1c [ADDED]2019-03-02 00:00:00* Test Item Value Reference Range Interpretation Comme nts HEMOGLOBIN A1c (test code = 03657) 7.1 % COMPREHENSIVE METABOLIC PANEL [ADDED]2019-03-02 00:00:00* Test Item Value Reference Range Interpretation Comme nts GLUCOSE (test code = 2217) 132 MG/DL BUN (test code = 2208) 9 MG/DL CREATININE (test code = 2214) 0.56 MG/DL eGFR AMER. (test cod e = 16671) 135 ML/MIN/1.73 eGFR NON- AMER. (test code = 54153) 117 ML/MIN/1.73 CALC BUN/CREAT (test code = 2235) 16 RATIO SODIUM (test code = 2231) 142 MEQ/L POTASSIUM (test code = 2228) 4.1 MEQ/L CHLORIDE (test code = 2215) 101 MEQ/L CARBON DIOXIDE (test code = 2206) 28 MEQ/L CALCIUM (test code = 2209) 9.5 MG/DL PROTEIN, TOTAL (test code = 2229) 7.3 G/DL ALBUMIN (test code = 2201) 4.3 G/DL CALC GLOBULIN (test code = 2240) 3.0 G/DL CALC A/G RATIO (test code = 2234) 1.4 RATIO BILIRUBIN, TOTAL (test code = 2207) 0.3 MG/DL ALKALINE PHOSPHATASE (test code = 2204) 77 U/L AST (test code = 2218) 19 U/L ALT (test code = 2219) 17 U/L LIPID PANEL [ADDED]2019-03-02 00:00:00* Test Item Value Reference Range Interpretation Comme nts CHOLESTEROL (test code = 2210) 206 MG/DL TRIGLYCERIDES (test code = 2232) 340 MG/DL HDL CHOLESTEROL (test code = 2220) 36 MG/DL CALC LDL CHOL (test code = 2237) 102 MG/DL RISK RATIO LDL/HDL (test cod e = 2238) 2.83 RATIO ALBUMIN/CREATININE RATIO, RANDOM URINE [ADDED]2019-03-02 00:00:00* Test Item Value Reference Range Interpretation Comme nts CREATININE, URINE, CONC. (te st code = 2072) 182.9 MG/DL ALBUMIN, URINE, RANDOM (test code = 72007) 4.6 MG/DL CALC ALBUMIN/CREAT, RND (gavi t code = 03145) 25 MG/G HEMOGLOBIN A1c [ADDED]2019-03-02 00:00:00* Test Item Value Reference Range Interpretation Comme nts HEMOGLOBIN A1c (test code = 58477) 7.1 % COMPREHENSIVE METABOLIC PANEL [ADDED]2019-03-02 00:00:00* Test Item Value Reference Range Interpretation Comme nts GLUCOSE (test code = 2217) 132 MG/DL BUN (test code = 2208) 9 MG/DL CREATININE (test code = 2214) 0.56 MG/DL eGFR AMER. (test cod e = 33369) 135 ML/MIN/1.73 eGFR NON- AMER. (test code = 54058) 117 ML/MIN/1.73 CALC BUN/CREAT (test code = 2235) 16 RATIO SODIUM (test code = 2231) 142 MEQ/L POTASSIUM (test code = 2228) 4.1 MEQ/L CHLORIDE (test code = 2215) 101 MEQ/L CARBON DIOXIDE (test code = 2206) 28 MEQ/L CALCIUM (test code = 2209) 9.5 MG/DL PROTEIN, TOTAL (test code = 2229) 7.3 G/DL ALBUMIN (test code = 2201) 4.3 G/DL CALC GLOBULIN (test code = 2240) 3.0 G/DL CALC A/G RATIO (test code = 2234) 1.4 RATIO BILIRUBIN, TOTAL (test code = 2207) 0.3 MG/DL ALKALINE PHOSPHATASE (test code = 2204) 77 U/L AST (test code = 2218) 19 U/L ALT (test code = 2219) 17 U/L LIPID PANEL [ADDED]2019-03-02 00:00:00* Test Item Value Reference Range Interpretation Comme nts CHOLESTEROL (test code = 2210) 206 MG/DL TRIGLYCERIDES (test code = 2232) 340 MG/DL HDL CHOLESTEROL (test code = 2220) 36 MG/DL CALC LDL CHOL (test code = 2237) 102 MG/DL RISK RATIO LDL/HDL (test cod e = 2238) 2.83 RATIO ALBUMIN/CREATININE RATIO, RANDOM URINE [ADDED]2019-03-02 00:00:00* Test Item Value Reference Range Interpretation Comme nts CREATININE, URINE, CONC. (te st code = 2072) 182.9 MG/DL ALBUMIN, URINE, RANDOM (test code = 59219) 4.6 MG/DL CALC ALBUMIN/CREAT, RND (gavi t code = 39058) 25 MG/G HEMOGLOBIN A1c [ADDED]2019-03-02 00:00:00* Test Item Value Reference Range Interpretation Comme nts HEMOGLOBIN A1c (test code = 97597) 7.1 % COMPREHENSIVE METABOLIC PANEL [ADDED]2019-03-02 00:00:00* Test Item Value Reference Range Interpretation Comme nts GLUCOSE (test code = 2217) 132 MG/DL BUN (test code = 2208) 9 MG/DL CREATININE (test code = 2214) 0.56 MG/DL eGFR AMER. (test cod e = 84108) 135 ML/MIN/1.73 eGFR NON- AMER. (test code = 07571) 117 ML/MIN/1.73 CALC BUN/CREAT (test code = 2235) 16 RATIO SODIUM (test code = 2231) 142 MEQ/L POTASSIUM (test code = 2228) 4.1 MEQ/L CHLORIDE (test code = 2215) 101 MEQ/L CARBON DIOXIDE (test code = 2206) 28 MEQ/L CALCIUM (test code = 2209) 9.5 MG/DL PROTEIN, TOTAL (test code = 2229) 7.3 G/DL ALBUMIN (test code = 2201) 4.3 G/DL CALC GLOBULIN (test code = 2240) 3.0 G/DL CALC A/G RATIO (test code = 2234) 1.4 RATIO BILIRUBIN, TOTAL (test code = 2207) 0.3 MG/DL ALKALINE PHOSPHATASE (test code = 2204) 77 U/L AST (test code = 2218) 19 U/L ALT (test code = 2219) 17 U/L LIPID PANEL [ADDED]2019-03-02 00:00:00* Test Item Value Reference Range Interpretation Comme nts CHOLESTEROL (test code = 2210) 206 MG/DL TRIGLYCERIDES (test code = 2232) 340 MG/DL HDL CHOLESTEROL (test code = 2220) 36 MG/DL CALC LDL CHOL (test code = 2237) 102 MG/DL RISK RATIO LDL/HDL (test cod e = 2238) 2.83 RATIO ALBUMIN/CREATININE RATIO, RANDOM URINE [ADDED]2019-03-02 00:00:00* Test Item Value Reference Range Interpretation Comme nts CREATININE, URINE, CONC. (te st code = 2072) 182.9 MG/DL ALBUMIN, URINE, RANDOM (test code = 41239) 4.6 MG/DL CALC ALBUMIN/CREAT, RND (gavi t code = 22010) 25 MG/G HEMOGLOBIN A1c [ADDED]2019-03-02 00:00:00* Test Item Value Reference Range Interpretation Comme nts HEMOGLOBIN A1c (test code = 22226) 7.1 % HEMOGLOBIN A1c [ADDED]2019-03-02 00:00:00* Test Item Value Reference Range Interpretation Comme nts HEMOGLOBIN A1c (test code = 54585) 7.1 % COMPREHENSIVE METABOLIC PANEL [ADDED]2019-03-02 00:00:00* Test Item Value Reference Range Interpretation Comme nts GLUCOSE (test code = 2217) 132 MG/DL BUN (test code = 2208) 9 MG/DL CREATININE (test code = 2214) 0.56 MG/DL eGFR AMER. (test cod e = 54105) 135 ML/MIN/1.73 eGFR NON- AMER. (test code = 23903) 117 ML/MIN/1.73 CALC BUN/CREAT (test code = 2235) 16 RATIO SODIUM (test code = 2231) 142 MEQ/L POTASSIUM (test code = 2228) 4.1 MEQ/L CHLORIDE (test code = 2215) 101 MEQ/L CARBON DIOXIDE (test code = 2206) 28 MEQ/L CALCIUM (test code = 2209) 9.5 MG/DL PROTEIN, TOTAL (test code = 2229) 7.3 G/DL ALBUMIN (test code = 2201) 4.3 G/DL CALC GLOBULIN (test code = 2240) 3.0 G/DL CALC A/G RATIO (test code = 2234) 1.4 RATIO BILIRUBIN, TOTAL (test code = 2207) 0.3 MG/DL ALKALINE PHOSPHATASE (test code = 2204) 77 U/L AST (test code = 2218) 19 U/L ALT (test code = 2219) 17 U/L LIPID PANEL [ADDED]2019-03-02 00:00:00* Test Item Value Reference Range Interpretation Comme nts CHOLESTEROL (test code = 2210) 206 MG/DL TRIGLYCERIDES (test code = 2232) 340 MG/DL HDL CHOLESTEROL (test code = 2220) 36 MG/DL CALC LDL CHOL (test code = 2237) 102 MG/DL RISK RATIO LDL/HDL (test cod e = 2238) 2.83 RATIO HEMOGLOBIN [id number] 00:00:00* Test Item Value Reference Range Interpretation Comme nts HEMOGLOBIN A1c (test code = 59148) 8.1 % HEMOGLOBIN [id number] 00:00:00* Test Item Value Reference Range Interpretation Comme nts HEMOGLOBIN A1c (test code = 12564) 8.1 % HEMOGLOBIN [id number] 00:00:00* Test Item Value Reference Range Interpretation Comme nts HEMOGLOBIN A1c (test code = 56245) 8.1 % HEMOGLOBIN [id number] 00:00:00* Test Item Value Reference Range Interpretation Comme nts HEMOGLOBIN A1c (test code = 73721) 8.1 % HEMOGLOBIN [id number] 00:00:00* Test Item Value Reference Range Interpretation Comme nts HEMOGLOBIN A1c (test code = 38022) 8.1 % HEMOGLOBIN [id number] 00:00:00* Test Item Value Reference Range Interpretation Comme nts HEMOGLOBIN A1c (test code = 53819) 8.1 % HEMOGLOBIN [id number] 00:00:00* Test Item Value Reference Range Interpretation Comme nts HEMOGLOBIN A1c (test code = 37527) 10.3 % HEMOGLOBIN [id number] 00:00:00* Test Item Value Reference Range Interpretation Comme nts HEMOGLOBIN A1c (test code = 08582) 10.3 % HEMOGLOBIN [id number] 00:00:00* Test Item Value Reference Range Interpretation Comme nts HEMOGLOBIN A1c (test code = 35239) 10.3 % HEMOGLOBIN [id number] 00:00:00* Test Item Value Reference Range Interpretation Comme nts HEMOGLOBIN A1c (test code = 73846) 10.3 % HEMOGLOBIN [id number] 00:00:00* Test Item Value Reference Range Interpretation Comme nts HEMOGLOBIN A1c (test code = 03860) 10.3 % HEMOGLOBIN [id number] 00:00:00* Test Item Value Reference Range Interpretation Comme nts HEMOGLOBIN A1c (test code = 99543) 10.3 % HEMOGLOBIN [id number] 00:00:00* Test Item Value Reference Range Interpretation Comme nts HEMOGLOBIN A1c (test code = 14295) 12.0 % LIPID [id number] 00:00:00* Test Item Value Reference Range Interpretation Comme nts CHOLESTEROL (test code = 2210) 229 MG/DL TRIGLYCERIDES (test code = 2232) 439 MG/DL HDL CHOLESTEROL (test code = 2220) 38 MG/DL CALC LDL CHOL (test code = 2237) NOTE MG/DL RISK RATIO LDL/HDL (test cod e = 2238) (NOTE) RATIO HEMOGLOBIN [id number] 00:00:00* Test Item Value Reference Range Interpretation Comme nts HEMOGLOBIN A1c (test code = 16873) 12.0 % LIPID [id number] 00:00:00* Test Item Value Reference Range Interpretation Comme nts CHOLESTEROL (test code = 2210) 229 MG/DL TRIGLYCERIDES (test code = 2232) 439 MG/DL HDL CHOLESTEROL (test code = 2220) 38 MG/DL CALC LDL CHOL (test code = 2237) NOTE MG/DL RISK RATIO LDL/HDL (test cod e = 2238) (NOTE) RATIO HEMOGLOBIN [id number] 00:00:00* Test Item Value Reference Range Interpretation Comme nts HEMOGLOBIN A1c (test code = 11088) 12.0 % LIPID [id number] 00:00:00* Test Item Value Reference Range Interpretation Comme nts CHOLESTEROL (test code = 2210) 229 MG/DL TRIGLYCERIDES (test code = 2232) 439 MG/DL HDL CHOLESTEROL (test code = 2220) 38 MG/DL CALC LDL CHOL (test code = 2237) NOTE MG/DL RISK RATIO LDL/HDL (test cod e = 2238) (NOTE) RATIO HEMOGLOBIN [id number] 00:00:00* Test Item Value Reference Range Interpretation Comme nts HEMOGLOBIN A1c (test code = 64579) 12.0 % LIPID [id number] 00:00:00* Test Item Value Reference Range Interpretation Comme nts CHOLESTEROL (test code = 2210) 229 MG/DL TRIGLYCERIDES (test code = 2232) 439 MG/DL HDL CHOLESTEROL (test code = 2220) 38 MG/DL CALC LDL CHOL (test code = 2237) NOTE MG/DL RISK RATIO LDL/HDL (test cod e = 2238) (NOTE) RATIO HEMOGLOBIN [id number] 00:00:00* Test Item Value Reference Range Interpretation Comme nts HEMOGLOBIN A1c (test code = 24773) 12.0 % LIPID [id number] 00:00:00* Test Item Value Reference Range Interpretation Comme nts CHOLESTEROL (test code = 2210) 229 MG/DL TRIGLYCERIDES (test code = 2232) 439 MG/DL HDL CHOLESTEROL (test code = 2220) 38 MG/DL CALC LDL CHOL (test code = 2237) NOTE MG/DL RISK RATIO LDL/HDL (test cod e = 2238) (NOTE) RATIO LIPID [id number] 00:00:00* Test Item Value Reference Range Interpretation Comme nts CHOLESTEROL (test code = 2210) 229 MG/DL TRIGLYCERIDES (test code = 2232) 439 MG/DL HDL CHOLESTEROL (test code = 2220) 38 MG/DL CALC LDL CHOL (test code = 2237) NOTE MG/DL RISK RATIO LDL/HDL (test cod e = 2238) (NOTE) RATIO HEMOGLOBIN [id number] 00:00:00* Test Item Value Reference Range Interpretation Comme [facility] HEMOGLOBIN A1c (test code = 20479) 12.0 % VITAMIN D, 25 [id number] 00:00:00* Test Item Value Reference Range Interpretation Comme [facility] VITAMIN D, 25 OH (test code = 4958) 15 NG/ML LIZBETH AUTOIMMUNE [id number] 00:00:00* Test Item Value Reference Range Interpretation Comme nts ANTI-NUCLEAR ANTIBODIES (gavi t code = 3506) NEGATIVE SJOGREN'S SS-A ANTIBODY (gavi t code = 68178) <0.2 AI SJOGREN'S SS-B ANTIBODY (gavi t code = 66515) <0.2 AI GONZALEZ (Sm) ANTIBODY (test co de = 18196) <0.2 AI BOW MAKING MACHINE OPERATOR ANTIBODY (test code = 32446) 0.5 AI SCL-70 ANTIBODY (test code = 1686) <0.2 AI Terri-1 ANTIBODY (test code = 1390) <0.2 AI CENTROMERE B ANTIBODY (test code = 4630) <0.2 AI RIBOSOMAL P ANTIBODY (test c ode = 93007) <0.2 AI CHROMATIN ANTIBODY (test cod e = 99962) <0.2 AI THYROID PEROXIDASE AB (test code = 80914) 1 IU/ML COMPLEMENT C3 (test code = 3509) 189 MG/DL COMPLEMENT C4 (test code = 3510) 44 MG/DL RHEUMATOID FACTOR, QUANT (te st code = 3502) <10 IU/ML dsDNA ANTIBODY (test code = 4287) 6.0 IU/ML C-REACTIVE [id number] 00:00:00* Test Item Value Reference Range Interpretation Comme nts C-REACTIVE PROTEIN (test cod e = 3513) 0.6 MG/DL SEDIMENTATION [id number] 00:00:00* Test Item Value Reference Range Interpretation Comme nts SEDIMENTATION RATE (test cod e = 1017) 28 MM/HOUR VITAMIN D, 25 [id number] 00:00:00* Test Item Value Reference Range Interpretation Comme nts VITAMIN D, 25 OH (test code = 4958) 15 NG/ML LIZBETH AUTOIMMUNE [id number] 00:00:00* Test Item Value Reference Range Interpretation Comme nts ANTI-NUCLEAR ANTIBODIES (gavi t code = 3506) NEGATIVE SJOGREN'S SS-A ANTIBODY (gavi t code = 44999) <0.2 AI SJOGREN'S SS-B ANTIBODY (gavi t code = 81804) <0.2 AI GONZALEZ (Sm) ANTIBODY (test co de = 09448) <0.2 AI BOW MAKING MACHINE OPERATOR ANTIBODY (test code = 52690) 0.5 AI SCL-70 ANTIBODY (test code = 4606) <0.2 AI Terri-1 ANTIBODY (test code = 4680) <0.2 AI CENTROMERE B ANTIBODY (test code = 4630) <0.2 AI RIBOSOMAL P ANTIBODY (test c ode = 93881) <0.2 AI CHROMATIN ANTIBODY (test cod e = 83412) <0.2 AI THYROID PEROXIDASE AB (test code = 73773) 1 IU/ML COMPLEMENT C3 (test code = 3509) 189 MG/DL COMPLEMENT C4 (test code = 3510) 44 MG/DL RHEUMATOID FACTOR, QUANT (te st code = 3502) <10 IU/ML dsDNA ANTIBODY (test code = 4287) 6.0 IU/ML C-REACTIVE [id number] 00:00:00* Test Item Value Reference Range Interpretation Comme nts C-REACTIVE PROTEIN (test cod e = 3513) 0.6 MG/DL SEDIMENTATION [id number] 00:00:00* Test Item Value Reference Range Interpretation Comme nts SEDIMENTATION RATE (test cod e = 1017) 28 MM/HOUR VITAMIN D, 25 [id number] 00:00:00* Test Item Value Reference Range Interpretation Comme nts VITAMIN D, 25 OH (test code = 4958) 15 NG/ML LIZBETH AUTOIMMUNE [id number] 00:00:00* Test Item Value Reference Range Interpretation Comme nts ANTI-NUCLEAR ANTIBODIES (gavi t code = 3506) NEGATIVE SJOGREN'S SS-A ANTIBODY (gavi t code = 95328) <0.2 AI SJOGREN'S SS-B ANTIBODY (gavi t code = 13663) <0.2 AI GONZALEZ (Sm) ANTIBODY (test co de = 20783) <0.2 AI BOW MAKING MACHINE OPERATOR ANTIBODY (test code = 27573) 0.5 AI SCL-70 ANTIBODY (test code = 4606) <0.2 AI Terri-1 ANTIBODY (test code = 4680) <0.2 AI CENTROMERE B ANTIBODY (test code = 4630) <0.2 AI RIBOSOMAL P ANTIBODY (test c ode = 72215) <0.2 AI CHROMATIN ANTIBODY (test cod e = 58277) <0.2 AI THYROID PEROXIDASE AB (test code = 37905) 1 IU/ML COMPLEMENT C3 (test code = 3509) 189 MG/DL COMPLEMENT C4 (test code = 3510) 44 MG/DL RHEUMATOID FACTOR, QUANT (te st code = 3502) <10 IU/ML dsDNA ANTIBODY (test code = 4287) 6.0 IU/ML C-REACTIVE [id number] 00:00:00* Test Item Value Reference Range Interpretation Comme nts C-REACTIVE PROTEIN (test cod e = 3513) 0.6 MG/DL SEDIMENTATION [id number] 00:00:00* Test Item Value Reference Range Interpretation Comme nts SEDIMENTATION RATE (test cod e = 1017) 28 MM/HOUR VITAMIN D, 25 [id number] 00:00:00* Test Item Value Reference Range Interpretation Comme nts VITAMIN D, 25 OH (test code = 4958) 15 NG/ML LIZBETH AUTOIMMUNE [id number] 00:00:00* Test Item Value Reference Range Interpretation Comme nts ANTI-NUCLEAR ANTIBODIES (gavi t code = 3506) NEGATIVE SJOGREN'S SS-A ANTIBODY (gavi t code = 00305) <0.2 AI SJOGREN'S SS-B ANTIBODY (gavi t code = 81475) <0.2 AI GONZALEZ (Sm) ANTIBODY (test co de = 36360) <0.2 AI BOW MAKING MACHINE OPERATOR ANTIBODY (test code = 19351) 0.5 AI SCL-70 ANTIBODY (test code = 4606) <0.2 AI Terri-1 ANTIBODY (test code = 4680) <0.2 AI CENTROMERE B ANTIBODY (test code = 4630) <0.2 AI RIBOSOMAL P ANTIBODY (test c ode = 16847) <0.2 AI CHROMATIN ANTIBODY (test cod e = 32725) <0.2 AI THYROID PEROXIDASE AB (test code = 54105) 1 IU/ML COMPLEMENT C3 (test code = 3509) 189 MG/DL COMPLEMENT C4 (test code = 3510) 44 MG/DL RHEUMATOID FACTOR, QUANT (te st code = 3502) <10 IU/ML dsDNA ANTIBODY (test code = 4287) 6.0 IU/ML C-REACTIVE [id number] 00:00:00* Test Item Value Reference Range Interpretation Comme nts C-REACTIVE PROTEIN (test cod e = 3513) 0.6 MG/DL SEDIMENTATION [id number] 00:00:00* Test Item Value Reference Range Interpretation Comme nts SEDIMENTATION RATE (test cod e = 1017) 28 MM/HOUR VITAMIN D, 25 [id number] 00:00:00* Test Item Value Reference Range Interpretation Comme nts VITAMIN D, 25 OH (test code = 4958) 15 NG/ML LIZBETH AUTOIMMUNE [id number] 00:00:00* Test Item Value Reference Range Interpretation Comme nts ANTI-NUCLEAR ANTIBODIES (gavi t code = 3506) NEGATIVE SJOGREN'S SS-A ANTIBODY (gavi t code = 92963) <0.2 AI SJOGREN'S SS-B ANTIBODY (gavi t code = 58210) <0.2 AI GONZALEZ (Sm) ANTIBODY (test co de = 23849) <0.2 AI BOW MAKING MACHINE OPERATOR ANTIBODY (test code = 55758) 0.5 AI SCL-70 ANTIBODY (test code = 4606) <0.2 AI Terri-1 ANTIBODY (test code = 4680) <0.2 AI CENTROMERE B ANTIBODY (test code = 4630) <0.2 AI RIBOSOMAL P ANTIBODY (test c ode = 68822) <0.2 AI CHROMATIN ANTIBODY (test cod e = 60229) <0.2 AI THYROID PEROXIDASE AB (test code = 09703) 1 IU/ML COMPLEMENT C3 (test code = 3509) 189 MG/DL COMPLEMENT C4 (test code = 3510) 44 MG/DL RHEUMATOID FACTOR, QUANT (te st code = 3502) <10 IU/ML dsDNA ANTIBODY (test code = 4287) 6.0 IU/ML C-REACTIVE [id number] 00:00:00* Test Item Value Reference Range Interpretation Comme nts C-REACTIVE PROTEIN (test cod e = 3513) 0.6 MG/DL SEDIMENTATION [id number] 00:00:00* Test Item Value Reference Range Interpretation Comme nts SEDIMENTATION RATE (test cod e = 1017) 28 MM/HOUR VITAMIN D, 25 [id number] 00:00:00* Test Item Value Reference Range Interpretation Comme nts VITAMIN D, 25 OH (test code = 4958) 15 NG/ML LIZBETH AUTOIMMUNE [id number] 00:00:00* Test Item Value Reference Range Interpretation Comme nts ANTI-NUCLEAR ANTIBODIES (gavi t code = 3506) NEGATIVE SJOGREN'S SS-A ANTIBODY (gavi t code = 43339) <0.2 AI SJOGREN'S SS-B ANTIBODY (gavi t code = 27533) <0.2 AI GONZALEZ (Sm) ANTIBODY (test co de = 25997) <0.2 AI BOW MAKING MACHINE OPERATOR ANTIBODY (test code = 78662) 0.5 AI SCL-70 ANTIBODY (test code = 4606) <0.2 AI Terri-1 ANTIBODY (test code = 4680) <0.2 AI CENTROMERE B ANTIBODY (test code = 4630) <0.2 AI RIBOSOMAL P ANTIBODY (test c ode = 07645) <0.2 AI CHROMATIN ANTIBODY (test cod e = 51263) <0.2 AI THYROID PEROXIDASE AB (test code = 10048) 1 IU/ML COMPLEMENT C3 (test code = 3509) 189 MG/DL COMPLEMENT C4 (test code = 3510) 44 MG/DL RHEUMATOID FACTOR, QUANT (te st code = 3502) <10 IU/ML dsDNA ANTIBODY (test code = 4287) 6.0 IU/ML C-REACTIVE [id number] 00:00:00* Test Item Value Reference Range Interpretation Comme nts C-REACTIVE PROTEIN (test cod e = 3513) 0.6 MG/DL SEDIMENTATION [id number] 00:00:00* Test Item Value Reference Range Interpretation Comme nts SEDIMENTATION RATE (test cod e = 1017) 28 MM/HOUR HEMOGLOBIN [id number] 00:00:00* Test Item Value Reference Range Interpretation Comme nts HEMOGLOBIN A1c (test code = 95851) 7.5 % HEMOGLOBIN [id number] 00:00:00* Test Item Value Reference Range Interpretation Comme nts HEMOGLOBIN A1c (test code = 93892) 7.5 % HEMOGLOBIN [id number] 00:00:00* Test Item Value Reference Range Interpretation Comme nts HEMOGLOBIN A1c (test code = 45213) 7.5 % HEMOGLOBIN [id number] 00:00:00* Test Item Value Reference Range Interpretation Comme nts HEMOGLOBIN A1c (test code = 77888) 7.5 % HEMOGLOBIN [id number] 00:00:00* Test Item Value Reference Range Interpretation Comme nts HEMOGLOBIN A1c (test code = 56327) 7.5 % HEMOGLOBIN [id number] 00:00:00* Test Item Value Reference Range Interpretation Comme nts HEMOGLOBIN A1c (test code = 80448) 7.5 % RETICULOCYTE [id number] 00:00:00* Test Item Value Reference Range Interpretation Comme nts RETICULOCYTE COUNT (test code = 1018) 1.1 % [id number] 00:00:00* Test Item Value Reference Range Interpretation Comme nts FERRITIN (test code = 2075) 26 NG/ML IRON BINDING CAPACITY AND IRON AND % [id number] 00:00:00* Test Item Value Reference Range Interpretation Comme nts IRON, SERUM (test code = 2222) 77 UG/DL UNSATURATED IBC (test code = 10877) 273 UG/DL CALC TOTAL IBC (test code = 2077) 350 UG/DL CALC % IRON SAT (test code = 2079) 22 % RETICULOCYTE [id number] 00:00:00* Test Item Value Reference Range Interpretation Comme nts RETICULOCYTE COUNT (test code = 1018) 1.1 % VITAMIN B 12 AND FOLIC [id number] 00:00:00* Test Item Value Reference Range Interpretation Comme nts VITAMIN B-12 (test code = 2840) 485 PG/ML FOLIC ACID (test code = 2695) 14.6 UG/L [id number] 00:00:00* Test Item Value Reference Range Interpretation Comme nts FERRITIN (test code = 5) 26 NG/ML IRON BINDING CAPACITY AND IRON AND % [id number] 00:00:00* Test Item Value Reference Range Interpretation Comme nts IRON, SERUM (test code = 2222) 77 UG/DL UNSATURATED IBC (test code = 29439) 273 UG/DL CALC TOTAL IBC (test code = 7) 350 UG/DL CALC % IRON SAT (test code = 9) 22 % RETICULOCYTE [id number] 00:00:00* Test Item Value Reference Range Interpretation Comme nts RETICULOCYTE COUNT (test code = 1018) 1.1 % VITAMIN B 12 AND FOLIC [id number] 00:00:00* Test Item Value Reference Range Interpretation Comme nts VITAMIN B-12 (test code = 2840) 485 PG/ML FOLIC ACID (test code = 2695) 14.6 UG/L [id number] 00:00:00* Test Item Value Reference Range Interpretation Comme nts FERRITIN (test code = 5) 26 NG/ML IRON BINDING CAPACITY AND IRON AND % [id number] 00:00:00* Test Item Value Reference Range Interpretation Comme nts IRON, SERUM (test code = 2222) 77 UG/DL UNSATURATED IBC (test code = 03600) 273 UG/DL CALC TOTAL IBC (test code = 2077) 350 UG/DL CALC % IRON SAT (test code = 9) 22 % RETICULOCYTE [id number] 00:00:00* Test Item Value Reference Range Interpretation Comme nts RETICULOCYTE COUNT (test code = 1018) 1.1 % VITAMIN B 12 AND FOLIC [id number] 00:00:00* Test Item Value Reference Range Interpretation Comme nts VITAMIN B-12 (test code = 2840) 485 PG/ML FOLIC ACID (test code = 2695) 14.6 UG/L [id number] 00:00:00* Test Item Value Reference Range Interpretation Comme nts FERRITIN (test code = 2074) 26 NG/ML IRON BINDING CAPACITY AND IRON AND % [id number] 00:00:00* Test Item Value Reference Range Interpretation Comme nts IRON, SERUM (test code = 2222) 77 UG/DL UNSATURATED IBC (test code = 33193) 273 UG/DL CALC TOTAL IBC (test code = 7) 350 UG/DL CALC % IRON SAT (test code = 9) 22 % RETICULOCYTE [id number] 00:00:00* Test Item Value Reference Range Interpretation Comme nts RETICULOCYTE COUNT (test code = 1018) 1.1 % VITAMIN B 12 AND FOLIC [id number] 00:00:00* Test Item Value Reference Range Interpretation Comme nts VITAMIN B-12 (test code = 2840) 485 PG/ML FOLIC ACID (test code = 2695) 14.6 UG/L [id number] 00:00:00* Test Item Value Reference Range Interpretation Comme nts FERRITIN (test code = 2074) 26 NG/ML IRON BINDING CAPACITY AND IRON AND % [id number] 00:00:00* Test Item Value Reference Range Interpretation Comme nts IRON, SERUM (test code = 2222) 77 UG/DL UNSATURATED IBC (test code = 63017) 273 UG/DL CALC TOTAL IBC (test code = 7) 350 UG/DL CALC % IRON SAT (test code = 9) 22 % RETICULOCYTE [id number] 00:00:00* Test Item Value Reference Range Interpretation Comme nts RETICULOCYTE COUNT (test code = 1018) 1.1 % VITAMIN B 12 AND FOLIC [id number] 00:00:00* Test Item Value Reference Range Interpretation Comme nts VITAMIN B-12 (test code = 2840) 485 PG/ML FOLIC ACID (test code = 2695) 14.6 UG/L VITAMIN B 12 AND FOLIC [id number] 00:00:00* Test Item Value Reference Range Interpretation Comme nts VITAMIN B-12 (test code = 2840) 485 PG/ML FOLIC ACID (test code = 2695) 14.6 UG/L [id number] 00:00:00* Test Item Value Reference Range Interpretation Comme nts FERRITIN (test code = 2075) 26 NG/ML IRON BINDING CAPACITY AND IRON AND % [id number] 00:00:00* Test Item Value Reference Range Interpretation Comme nts IRON, SERUM (test code = 222) 77 UG/DL UNSATURATED IBC (test code = 90887) 273 UG/DL CALC TOTAL IBC (test code = 2076) 350 UG/DL CALC % IRON SAT (test code = 2079) 22 % HEMOGLOBIN [id number] 00:00:00* Test Item Value Reference Range Interpretation Comme nts HEMOGLOBIN A1c (test code = 05776) 6.5 % SEDIMENTATION [id number] 00:00:00* Test Item Value Reference Range Interpretation Comme nts SEDIMENTATION RATE (test cod e = 1017) 16 MM/HOUR C-REACTIVE [id number] 00:00:00* Test Item Value Reference Range Interpretation Comme nts C-REACTIVE PROTEIN (test cod e = 3513) 0.5 MG/DL MICROALBUMIN/CREATININE, RANDOM AND [id number] 00:00:00* Test Item Value Reference Range Interpretation Comme nts CREATININE, URINE, CONC. (te st code = 207) 158.3 MG/DL ALBUMIN, URINE, RANDOM (test code = 81145) 3.5 MG/DL CALC ALBUMIN/CREAT, RND (gavi t code = 10355) 22 MG/G LIPID [id number] 00:00:00* Test Item Value Reference Range Interpretation Comme nts CHOLESTEROL (test code = 2210) 194 MG/DL TRIGLYCERIDES (test code = 2232) 292 MG/DL HDL CHOLESTEROL (test code = 2220) 36 MG/DL CALC LDL CHOL (test code = 2237) 100 MG/DL RISK RATIO LDL/HDL (test cod e = 2238) 2.77 RATIO CBC W/AUTO [id number] 00:00:00* Test Item Value Reference Range Interpretation Comme nts WBC (test code = 1001) 8.8 K/UL [...] (test code = 1015) 268 K/UL HEMOGLOBIN [id number] 00:00:00* Test Item Value Reference Range Interpretation Comme nts HEMOGLOBIN A1c (test code = 20562) 6.5 % SEDIMENTATION [id number] 00:00:00* Test Item Value Reference Range Interpretation Comme nts SEDIMENTATION RATE (test cod e = 1017) 16 MM/HOUR C-REACTIVE [id number] 00:00:00* Test Item Value Reference Range Interpretation Comme nts C-REACTIVE PROTEIN (test cod e = 3513) 0.5 MG/DL MICROALBUMIN/CREATININE, RANDOM AND [id number] 00:00:00* Test Item Value Reference Range Interpretation Comme nts CREATININE, URINE, CONC. (te st code = 2072) 158.3 MG/DL ALBUMIN, URINE, RANDOM (test code = 62136) 3.5 MG/DL CALC ALBUMIN/CREAT, RND (gavi t code = 12603) 22 MG/G COMPREHENSIVE METABOLIC [id number] 00:00:00* Test Item Value Reference Range Interpretation Comme nts GLUCOSE (test code = 2217) 136 MG/DL BUN (test code = 2208) 11 MG/DL CREATININE (test code = 2214) 0.46 MG/DL eGFR AMER. (test cod e = 88717) 145 ML/MIN/1.73 eGFR NON- AMER. (test code = 77308) 125 ML/MIN/1.73 CALC BUN/CREAT (test code = 2235) 24 RATIO SODIUM (test code = 2231) 137 MEQ/L POTASSIUM (test code = 2228) 4.4 MEQ/L CHLORIDE (test code = 2215) 100 MEQ/L CARBON DIOXIDE (test code = 2206) 24 MEQ/L CALCIUM (test code = 2209) 9.3 MG/DL PROTEIN, TOTAL (test code = 2229) 7.0 G/DL ALBUMIN (test code = 2201) 4.4 G/DL CALC GLOBULIN (test code = 2240) 2.6 G/DL CALC A/G RATIO (test code = 2234) 1.7 RATIO BILIRUBIN, TOTAL (test code = 2207) 0.3 MG/DL ALKALINE PHOSPHATASE (test code = 2204) 73 U/L AST (test code = 2218) 21 U/L ALT (test code = 2219) 34 U/L LIPID [id number] 00:00:00* Test Item Value Reference Range Interpretation Comme nts CHOLESTEROL (test code = 2210) 194 MG/DL TRIGLYCERIDES (test code = 2232) 292 MG/DL HDL CHOLESTEROL (test code = 2220) 36 MG/DL CALC LDL CHOL (test code = 2237) 100 MG/DL RISK RATIO LDL/HDL (test cod e = 2238) 2.77 RATIO CBC W/AUTO [id number] 00:00:00* Test Item Value Reference Range Interpretation Comme nts WBC (test code = 1001) 8.8 K/UL [...] (test code = 1015) 268 K/UL HEMOGLOBIN [id number] 00:00:00* Test Item Value Reference Range Interpretation Comme nts HEMOGLOBIN A1c (test code = 73246) 6.5 % SEDIMENTATION [id number] 00:00:00* Test Item Value Reference Range Interpretation Comme nts SEDIMENTATION RATE (test cod e = 1017) 16 MM/HOUR C-REACTIVE [id number] 00:00:00* Test Item Value Reference Range Interpretation Comme nts C-REACTIVE PROTEIN (test cod e = 3513) 0.5 MG/DL MICROALBUMIN/CREATININE, RANDOM AND [id number] 00:00:00* Test Item Value Reference Range Interpretation Comme nts CREATININE, URINE, CONC. (te st code = 2072) 158.3 MG/DL ALBUMIN, URINE, RANDOM (test code = 67297) 3.5 MG/DL CALC ALBUMIN/CREAT, RND (gavi t code = 58235) 22 MG/G COMPREHENSIVE METABOLIC [id number] 00:00:00* Test Item Value Reference Range Interpretation Comme nts GLUCOSE (test code = 2217) 136 MG/DL BUN (test code = 2208) 11 MG/DL CREATININE (test code = 2214) 0.46 MG/DL eGFR AMER. (test cod e = 50475) 145 ML/MIN/1.73 eGFR NON- AMER. (test code = 58036) 125 ML/MIN/1.73 CALC BUN/CREAT (test code = 2235) 24 RATIO SODIUM (test code = 2231) 137 MEQ/L POTASSIUM (test code = 2228) 4.4 MEQ/L CHLORIDE (test code = 2215) 100 MEQ/L CARBON DIOXIDE (test code = 2206) 24 MEQ/L CALCIUM (test code = 2209) 9.3 MG/DL PROTEIN, TOTAL (test code = 2229) 7.0 G/DL ALBUMIN (test code = 2201) 4.4 G/DL CALC GLOBULIN (test code = 2240) 2.6 G/DL CALC A/G RATIO (test code = 2234) 1.7 RATIO BILIRUBIN, TOTAL (test code = 2207) 0.3 MG/DL ALKALINE PHOSPHATASE (test code = 2204) 73 U/L AST (test code = 2218) 21 U/L ALT (test code = 2219) 34 U/L LIPID [id number] 00:00:00* Test Item Value Reference Range Interpretation Comme nts CHOLESTEROL (test code = 2210) 194 MG/DL TRIGLYCERIDES (test code = 2232) 292 MG/DL HDL CHOLESTEROL (test code = 2220) 36 MG/DL CALC LDL CHOL (test code = 2237) 100 MG/DL RISK RATIO LDL/HDL (test cod e = 2238) 2.77 RATIO CBC W/AUTO [id number] 00:00:00* Test Item Value Reference Range Interpretation Comme nts WBC (test code = 1001) 8.8 K/UL [...] (test code = 1015) 268 K/UL HEMOGLOBIN [id number] 00:00:00* Test Item Value Reference Range Interpretation Comme nts HEMOGLOBIN A1c (test code = 47270) 6.5 % SEDIMENTATION [id number] 00:00:00* Test Item Value Reference Range Interpretation Comme nts SEDIMENTATION RATE (test cod e = 1017) 16 MM/HOUR C-REACTIVE [id number] 00:00:00* Test Item Value Reference Range Interpretation Comme nts C-REACTIVE PROTEIN (test cod e = 3513) 0.5 MG/DL MICROALBUMIN/CREATININE, RANDOM AND [id number] 00:00:00* Test Item Value Reference Range Interpretation Comme nts CREATININE, URINE, CONC. (te st code = 2072) 158.3 MG/DL ALBUMIN, URINE, RANDOM (test code = 71850) 3.5 MG/DL CALC ALBUMIN/CREAT, RND (gavi t code = 07276) 22 MG/G COMPREHENSIVE METABOLIC [id number] 00:00:00* Test Item Value Reference Range Interpretation Comme nts GLUCOSE (test code = 2217) 136 MG/DL BUN (test code = 2208) 11 MG/DL CREATININE (test code = 2214) 0.46 MG/DL eGFR AMER. (test cod e = 80849) 145 ML/MIN/1.73 eGFR NON- AMER. (test code = 64434) 125 ML/MIN/1.73 CALC BUN/CREAT (test code = 2235) 24 RATIO SODIUM (test code = 2231) 137 MEQ/L POTASSIUM (test code = 2228) 4.4 MEQ/L CHLORIDE (test code = 2215) 100 MEQ/L CARBON DIOXIDE (test code = 2206) 24 MEQ/L CALCIUM (test code = 2209) 9.3 MG/DL PROTEIN, TOTAL (test code = 2229) 7.0 G/DL ALBUMIN (test code = 2201) 4.4 G/DL CALC GLOBULIN (test code = 2240) 2.6 G/DL CALC A/G RATIO (test code = 2234) 1.7 RATIO BILIRUBIN, TOTAL (test code = 2207) 0.3 MG/DL ALKALINE PHOSPHATASE (test code = 2204) 73 U/L AST (test code = 2218) 21 U/L ALT (test code = 2219) 34 U/L LIPID [id number] 00:00:00* Test Item Value Reference Range Interpretation Comme nts CHOLESTEROL (test code = 2210) 194 MG/DL TRIGLYCERIDES (test code = 2232) 292 MG/DL HDL CHOLESTEROL (test code = 2220) 36 MG/DL CALC LDL CHOL (test code = 2237) 100 MG/DL RISK RATIO LDL/HDL (test cod e = 2238) 2.77 RATIO CBC W/AUTO [id number] 00:00:00* Test Item Value Reference Range Interpretation Comme nts WBC (test code = 1001) 8.8 K/UL [...] (test code = 1015) 268 K/UL HEMOGLOBIN [id number] 00:00:00* Test Item Value Reference Range Interpretation Comme nts HEMOGLOBIN A1c (test code = 51412) 6.5 % SEDIMENTATION [id number] 00:00:00* Test Item Value Reference Range Interpretation Comme nts SEDIMENTATION RATE (test cod e = 1017) 16 MM/HOUR C-REACTIVE [id number] 00:00:00* Test Item Value Reference Range Interpretation Comme nts C-REACTIVE PROTEIN (test cod e = 3513) 0.5 MG/DL MICROALBUMIN/CREATININE, RANDOM AND [id number] 00:00:00* Test Item Value Reference Range Interpretation Comme nts CREATININE, URINE, CONC. (te st code = 2072) 158.3 MG/DL ALBUMIN, URINE, RANDOM (test code = 94805) 3.5 MG/DL CALC ALBUMIN/CREAT, RND (gavi t code = 58056) 22 MG/G COMPREHENSIVE METABOLIC [id number] 00:00:00* Test Item Value Reference Range Interpretation Comme nts GLUCOSE (test code = 2217) 136 MG/DL BUN (test code = 2208) 11 MG/DL CREATININE (test code = 2214) 0.46 MG/DL eGFR AMER. (test cod e = 29444) 145 ML/MIN/1.73 eGFR NON- AMER. (test code = 86001) 125 ML/MIN/1.73 CALC BUN/CREAT (test code = 2235) 24 RATIO SODIUM (test code = 2231) 137 MEQ/L POTASSIUM (test code = 2228) 4.4 MEQ/L CHLORIDE (test code = 2215) 100 MEQ/L CARBON DIOXIDE (test code = 2206) 24 MEQ/L CALCIUM (test code = 2209) 9.3 MG/DL PROTEIN, TOTAL (test code = 2229) 7.0 G/DL ALBUMIN (test code = 2201) 4.4 G/DL CALC GLOBULIN (test code = 2240) 2.6 G/DL CALC A/G RATIO (test code = 2234) 1.7 RATIO BILIRUBIN, TOTAL (test code = 2207) 0.3 MG/DL ALKALINE PHOSPHATASE (test code = 2204) 73 U/L AST (test code = 2218) 21 U/L ALT (test code = 2219) 34 U/L LIPID [id number] 00:00:00* Test Item Value Reference Range Interpretation Comme nts CHOLESTEROL (test code = 2210) 194 MG/DL TRIGLYCERIDES (test code = 2232) 292 MG/DL HDL CHOLESTEROL (test code = 2220) 36 MG/DL CALC LDL CHOL (test code = 2237) 100 MG/DL RISK RATIO LDL/HDL (test cod e = 2238) 2.77 RATIO CBC W/AUTO [id number] 00:00:00* Test Item Value Reference Range Interpretation Comme nts WBC (test code = 1001) 8.8 K/UL [...] (test code = 1015) 268 K/UL HEMOGLOBIN [id number] 00:00:00* Test Item Value Reference Range Interpretation Comme nts HEMOGLOBIN A1c (test code = 92608) 6.5 % SEDIMENTATION [id number] 00:00:00* Test Item Value Reference Range Interpretation Comme nts SEDIMENTATION RATE (test cod e = 1017) 16 MM/HOUR C-REACTIVE [id number] 00:00:00* Test Item Value Reference Range Interpretation Comme nts C-REACTIVE PROTEIN (test cod e = 3513) 0.5 MG/DL MICROALBUMIN/CREATININE, RANDOM AND [id number] 00:00:00* Test Item Value Reference Range Interpretation Comme nts CREATININE, URINE, CONC. (te st code = 2072) 158.3 MG/DL ALBUMIN, URINE, RANDOM (test code = 62478) 3.5 MG/DL CALC ALBUMIN/CREAT, RND (gavi t code = 34635) 22 MG/G COMPREHENSIVE METABOLIC [id number] 00:00:00* Test Item Value Reference Range Interpretation Comme nts GLUCOSE (test code = 2217) 136 MG/DL BUN (test code = 2208) 11 MG/DL CREATININE (test code = 2214) 0.46 MG/DL eGFR AMER. (test cod e = 03439) 145 ML/MIN/1.73 eGFR NON- AMER. (test code = 61817) 125 ML/MIN/1.73 CALC BUN/CREAT (test code = 2235) 24 RATIO SODIUM (test code = 2231) 137 MEQ/L POTASSIUM (test code = 2228) 4.4 MEQ/L CHLORIDE (test code = 2215) 100 MEQ/L CARBON DIOXIDE (test code = 2206) 24 MEQ/L CALCIUM (test code = 2209) 9.3 MG/DL PROTEIN, TOTAL (test code = 2229) 7.0 G/DL ALBUMIN (test code = 2201) 4.4 G/DL CALC GLOBULIN (test code = 2240) 2.6 G/DL CALC A/G RATIO (test code = 2234) 1.7 RATIO BILIRUBIN, TOTAL (test code = 2207) 0.3 MG/DL ALKALINE PHOSPHATASE (test code = 2204) 73 U/L AST (test code = 2218) 21 U/L ALT (test code = 2219) 34 U/L COMPREHENSIVE METABOLIC [id number] 00:00:00* Test Item Value Reference Range Interpretation Comme nts GLUCOSE (test code = 2217) 136 MG/DL BUN (test code = 2208) 11 MG/DL CREATININE (test code = 2214) 0.46 MG/DL eGFR AMER. (test cod e = 13175) 145 ML/MIN/1.73 eGFR NON- AMER. (test code = 02196) 125 ML/MIN/1.73 CALC BUN/CREAT (test code = 2235) 24 RATIO SODIUM (test code = 2231) 137 MEQ/L POTASSIUM (test code = 2228) 4.4 MEQ/L CHLORIDE (test code = 2215) 100 MEQ/L CARBON DIOXIDE (test code = 2206) 24 MEQ/L CALCIUM (test code = 2209) 9.3 MG/DL PROTEIN, TOTAL (test code = 2229) 7.0 G/DL ALBUMIN (test code = 2201) 4.4 G/DL CALC GLOBULIN (test code = 2240) 2.6 G/DL CALC A/G RATIO (test code = 2234) 1.7 RATIO BILIRUBIN, TOTAL (test code = 2207) 0.3 MG/DL ALKALINE PHOSPHATASE (test code = 2204) 73 U/L AST (test code = 2218) 21 U/L ALT (test code = 2219) 34 U/L LIPID [id number] 00:00:00* Test Item Value Reference Range Interpretation Comme nts CHOLESTEROL (test code = 2210) 194 MG/DL TRIGLYCERIDES (test code = 2232) 292 MG/DL HDL CHOLESTEROL (test code = 2220) 36 MG/DL CALC LDL CHOL (test code = 2237) 100 MG/DL RISK RATIO LDL/HDL (test cod e = 2238) 2.77 RATIO CBC W/AUTO [id number] 00:00:00* Test Item Value Reference Range Interpretation Comme nts WBC (test code = 1001) 8.8 K/UL [...] COUNT (test code = 1015) 268 K/UL RHEUMATOID FACTOR, [id number] 00:00:00* Test Item Value Reference Range Interpretation Comme nts RHEUMATOID FACTOR, QUANT (te st code = 3502) <10 IU/ML SEDIMENTATION [id number] 00:00:00* Test Item Value Reference Range Interpretation Comme nts SEDIMENTATION RATE (test cod e = 1017) 37 MM/HOUR C-REACTIVE [id number] 00:00:00* Test Item Value Reference Range Interpretation Comme nts C-REACTIVE PROTEIN (test cod e = 3513) 0.8 MG/DL LIZBETH (ANTI-NUCLEAR AB) WITH REFLEX [id number] 00:00:00* Test Item Value Reference Range Interpretation Comme nts ANTI-NUCLEAR ANTIBODIES (gavi t code = 3506) NEGATIVE RHEUMATOID FACTOR, [id number] 00:00:00* Test Item Value Reference Range Interpretation Comme nts RHEUMATOID FACTOR, QUANT (te st code = 3502) <10 IU/ML CBC W/AUTO [id number] 00:00:00* Test Item Value Reference Range Interpretation Comme nts WBC (test code = 1001) 10.2 K/UL [...] (test code = 1015) 258 K/UL SEDIMENTATION [id number] 00:00:00* Test Item Value Reference Range Interpretation Comme nts SEDIMENTATION RATE (test cod e = 1017) 37 MM/HOUR C-REACTIVE [id number] 00:00:00* Test Item Value Reference Range Interpretation Comme nts C-REACTIVE PROTEIN (test cod e = 3513) 0.8 MG/DL LIZBETH (ANTI-NUCLEAR AB) WITH REFLEX [id number] 00:00:00* Test Item Value Reference Range Interpretation Comme nts ANTI-NUCLEAR ANTIBODIES (gavi t code = 3506) NEGATIVE RHEUMATOID FACTOR, [id number] 00:00:00* Test Item Value Reference Range Interpretation Comme nts RHEUMATOID FACTOR, QUANT (te st code = 3502) <10 IU/ML CBC W/AUTO [id number] 00:00:00* Test Item Value Reference Range Interpretation Comme nts WBC (test code = 1001) 10.2 K/UL [...] (test code = 1015) 258 K/UL SEDIMENTATION [id number] 00:00:00* Test Item Value Reference Range Interpretation Comme nts SEDIMENTATION RATE (test cod e = 1017) 37 MM/HOUR C-REACTIVE [id number] 00:00:00* Test Item Value Reference Range Interpretation Comme nts C-REACTIVE PROTEIN (test cod e = 3513) 0.8 MG/DL LIZBETH (ANTI-NUCLEAR AB) WITH REFLEX [id number] 00:00:00* Test Item Value Reference Range Interpretation Comme nts ANTI-NUCLEAR ANTIBODIES (gavi t code = 3506) NEGATIVE RHEUMATOID FACTOR, [id number] 00:00:00* Test Item Value Reference Range Interpretation Comme nts RHEUMATOID FACTOR, QUANT (te st code = 3502) <10 IU/ML CBC W/AUTO [id number] 00:00:00* Test Item Value Reference Range Interpretation Comme nts WBC (test code = 1001) 10.2 K/UL [...] (test code = 1015) 258 K/UL SEDIMENTATION [id number] 00:00:00* Test Item Value Reference Range Interpretation Comme nts SEDIMENTATION RATE (test cod e = 1017) 37 MM/HOUR C-REACTIVE [id number] 00:00:00* Test Item Value Reference Range Interpretation Comme nts C-REACTIVE PROTEIN (test cod e = 3513) 0.8 MG/DL LIZBETH (ANTI-NUCLEAR AB) WITH REFLEX [id number] 00:00:00* Test Item Value Reference Range Interpretation Comme nts ANTI-NUCLEAR ANTIBODIES (gavi t code = 3506) NEGATIVE RHEUMATOID FACTOR, [id number] 00:00:00* Test Item Value Reference Range Interpretation Comme nts RHEUMATOID FACTOR, QUANT (te st code = 3502) <10 IU/ML CBC W/AUTO [id number] 00:00:00* Test Item Value Reference Range Interpretation Comme nts WBC (test code = 1001) 10.2 K/UL [...] (test code = 1015) 258 K/UL SEDIMENTATION [id number] 00:00:00* Test Item Value Reference Range Interpretation Comme nts SEDIMENTATION RATE (test cod e = 1017) 37 MM/HOUR C-REACTIVE [id number] 00:00:00* Test Item Value Reference Range Interpretation Comme nts C-REACTIVE PROTEIN (test cod e = 3513) 0.8 MG/DL LIZBETH (ANTI-NUCLEAR AB) WITH REFLEX [id number] 00:00:00* Test Item Value Reference Range Interpretation Comme nts ANTI-NUCLEAR ANTIBODIES (gavi t code = 3506) NEGATIVE RHEUMATOID FACTOR, [id number] 00:00:00* Test Item Value Reference Range Interpretation Comme nts RHEUMATOID FACTOR, QUANT (te st code = 3502) <10 IU/ML CBC W/AUTO [id number] 00:00:00* Test Item Value Reference Range Interpretation Comme nts WBC (test code = 1001) 10.2 K/UL [...] code = 1015) 258 K/UL CBC W/AUTO [id number] 00:00:00* Test Item Value Reference Range Interpretation Comme nts WBC (test code = 1001) 10.2 K/UL [...] (test code = 1015) 258 K/UL SEDIMENTATION [id number] 00:00:00* Test Item Value Reference Range Interpretation Comme nts SEDIMENTATION RATE (test cod e = 1017) 37 MM/HOUR C-REACTIVE [id number] 00:00:00* Test Item Value Reference Range Interpretation Comme nts C-REACTIVE PROTEIN (test cod e = 3513) 0.8 MG/DL LIZBETH (ANTI-NUCLEAR AB) WITH REFLEX [id number] 00:00:00* Test Item Value Reference Range Interpretation Comme nts ANTI-NUCLEAR ANTIBODIES (gavi t code = 3506) NEGATIVE HEMOGLOBIN [id number] 00:00:00* Test Item Value Reference Range Interpretation Comme nts HEMOGLOBIN A1c (test code = 90015) 10.0 % HEMOGLOBIN [id number] 00:00:00* Test Item Value Reference Range Interpretation Comme nts HEMOGLOBIN A1c (test code = 77180) 10.0 % HEMOGLOBIN [id number] 00:00:00* Test Item Value Reference Range Interpretation Comme nts HEMOGLOBIN A1c (test code = 32983) 10.0 % HEMOGLOBIN [id number] 00:00:00* Test Item Value Reference Range Interpretation Comme nts HEMOGLOBIN A1c (test code = 93582) 10.0 % HEMOGLOBIN [id number] 00:00:00* Test Item Value Reference Range Interpretation Comme nts HEMOGLOBIN A1c (test code = 38220) 10.0 % HEMOGLOBIN [id number] 00:00:00* Test Item Value Reference Range Interpretation Comme nts HEMOGLOBIN A1c (test code = 54114) 10.0 % COMPREHENSIVE METABOLIC [id number] 00:00:00* Test Item Value Reference Range Interpretation Comme nts GLUCOSE (test code = 2217) 282 MG/DL BUN (test code = 2208) 8 MG/DL CREATININE (test code = 2214) 0.44 MG/DL eGFR AMER. (test cod e = 41151) 148 ML/MIN/1.73 eGFR NON- AMER. (test code = 20430) 128 ML/MIN/1.73 CALC BUN/CREAT (test code = 2235) 18 RATIO SODIUM (test code = 2231) 135 MEQ/L POTASSIUM (test code = 2228) 4.0 MEQ/L CHLORIDE (test code = 2215) 98 MEQ/L CARBON DIOXIDE (test code = 2206) 24 MEQ/L CALCIUM (test code = 2209) 9.7 MG/DL PROTEIN, TOTAL (test code = 2229) 7.4 G/DL ALBUMIN (test code = 2201) 4.5 G/DL CALC GLOBULIN (test code = 2240) 2.9 G/DL CALC A/G RATIO (test code = 2234) 1.6 RATIO BILIRUBIN, TOTAL (test code = 2207) 0.6 MG/DL ALKALINE PHOSPHATASE (test code = 2204) 86 U/L AST (test code = 2218) 15 U/L ALT (test code = 2219) 14 U/L HEMOGLOBIN [id number] 00:00:00* Test Item Value Reference Range Interpretation Comme nts HEMOGLOBIN A1c (test code = 52050) 13.1 % LIPID [id number] 00:00:00* Test Item Value Reference Range Interpretation Comme nts CHOLESTEROL (test code = 2210) 231 MG/DL TRIGLYCERIDES (test code = 2232) 324 MG/DL HDL CHOLESTEROL (test code = 2220) 43 MG/DL CALC LDL CHOL (test code = 2237) 123 MG/DL RISK RATIO LDL/HDL (test cod e = 2238) 2.87 RATIO COMPREHENSIVE METABOLIC [id number] 00:00:00* Test Item Value Reference Range Interpretation Comme nts GLUCOSE (test code = 2217) 282 MG/DL BUN (test code = 2208) 8 MG/DL CREATININE (test code = 2214) 0.44 MG/DL eGFR AMER. (test cod e = 67775) 148 ML/MIN/1.73 eGFR NON- AMER. (test code = 26407) 128 ML/MIN/1.73 CALC BUN/CREAT (test code = 2235) 18 RATIO SODIUM (test code = 2231) 135 MEQ/L POTASSIUM (test code = 2228) 4.0 MEQ/L CHLORIDE (test code = 2215) 98 MEQ/L CARBON DIOXIDE (test code = 2206) 24 MEQ/L CALCIUM (test code = 2209) 9.7 MG/DL PROTEIN, TOTAL (test code = 2229) 7.4 G/DL ALBUMIN (test code = 2201) 4.5 G/DL CALC GLOBULIN (test code = 2240) 2.9 G/DL CALC A/G RATIO (test code = 2234) 1.6 RATIO BILIRUBIN, TOTAL (test code = 2207) 0.6 MG/DL ALKALINE PHOSPHATASE (test code = 2204) 86 U/L AST (test code = 2218) 15 U/L ALT (test code = 2219) 14 U/L HEMOGLOBIN [id number] 00:00:00* Test Item Value Reference Range Interpretation Comme nts HEMOGLOBIN A1c (test code = 39125) 13.1 % LIPID [id number] 00:00:00* Test Item Value Reference Range Interpretation Comme nts CHOLESTEROL (test code = 2210) 231 MG/DL TRIGLYCERIDES (test code = 2232) 324 MG/DL HDL CHOLESTEROL (test code = 2220) 43 MG/DL CALC LDL CHOL (test code = 2237) 123 MG/DL RISK RATIO LDL/HDL (test cod e = 2238) 2.87 RATIO COMPREHENSIVE METABOLIC [id number] 00:00:00* Test Item Value Reference Range Interpretation Comme nts GLUCOSE (test code = 2217) 282 MG/DL BUN (test code = 2208) 8 MG/DL CREATININE (test code = 2214) 0.44 MG/DL eGFR AMER. (test cod e = 10514) 148 ML/MIN/1.73 eGFR NON- AMER. (test code = 27773) 128 ML/MIN/1.73 CALC BUN/CREAT (test code = 2235) 18 RATIO SODIUM (test code = 2231) 135 MEQ/L POTASSIUM (test code = 2228) 4.0 MEQ/L CHLORIDE (test code = 2215) 98 MEQ/L CARBON DIOXIDE (test code = 2206) 24 MEQ/L CALCIUM (test code = 2209) 9.7 MG/DL PROTEIN, TOTAL (test code = 2229) 7.4 G/DL ALBUMIN (test code = 2201) 4.5 G/DL CALC GLOBULIN (test code = 2240) 2.9 G/DL CALC A/G RATIO (test code = 2234) 1.6 RATIO BILIRUBIN, TOTAL (test code = 2207) 0.6 MG/DL ALKALINE PHOSPHATASE (test code = 2204) 86 U/L AST (test code = 2218) 15 U/L ALT (test code = 2219) 14 U/L HEMOGLOBIN [id number] 00:00:00* Test Item Value Reference Range Interpretation Comme nts HEMOGLOBIN A1c (test code = 51297) 13.1 % LIPID [id number] 00:00:00* Test Item Value Reference Range Interpretation Comme nts CHOLESTEROL (test code = 2210) 231 MG/DL TRIGLYCERIDES (test code = 2232) 324 MG/DL HDL CHOLESTEROL (test code = 2220) 43 MG/DL CALC LDL CHOL (test code = 2237) 123 MG/DL RISK RATIO LDL/HDL (test cod e = 2238) 2.87 RATIO COMPREHENSIVE METABOLIC [id number] 00:00:00* Test Item Value Reference Range Interpretation Comme nts GLUCOSE (test code = 2217) 282 MG/DL BUN (test code = 2208) 8 MG/DL CREATININE (test code = 2214) 0.44 MG/DL eGFR AMER. (test cod e = 93757) 148 ML/MIN/1.73 eGFR NON- AMER. (test code = 83058) 128 ML/MIN/1.73 CALC BUN/CREAT (test code = 2235) 18 RATIO SODIUM (test code = 2231) 135 MEQ/L POTASSIUM (test code = 2228) 4.0 MEQ/L CHLORIDE (test code = 2215) 98 MEQ/L CARBON DIOXIDE (test code = 2206) 24 MEQ/L CALCIUM (test code = 2209) 9.7 MG/DL PROTEIN, TOTAL (test code = 2229) 7.4 G/DL ALBUMIN (test code = 2201) 4.5 G/DL CALC GLOBULIN (test code = 2240) 2.9 G/DL CALC A/G RATIO (test code = 2234) 1.6 RATIO BILIRUBIN, TOTAL (test code = 2207) 0.6 MG/DL ALKALINE PHOSPHATASE (test code = 2204) 86 U/L AST (test code = 2218) 15 U/L ALT (test code = 2219) 14 U/L HEMOGLOBIN [id number] 00:00:00* Test Item Value Reference Range Interpretation Comme nts HEMOGLOBIN A1c (test code = 09416) 13.1 % LIPID [id number] 00:00:00* Test Item Value Reference Range Interpretation Comme nts CHOLESTEROL (test code = 2210) 231 MG/DL TRIGLYCERIDES (test code = 2232) 324 MG/DL HDL CHOLESTEROL (test code = 2220) 43 MG/DL CALC LDL CHOL (test code = 2237) 123 MG/DL RISK RATIO LDL/HDL (test cod e = 2238) 2.87 RATIO COMPREHENSIVE METABOLIC [id number] 00:00:00* Test Item Value Reference Range Interpretation Comme nts GLUCOSE (test code = 2217) 282 MG/DL BUN (test code = 2208) 8 MG/DL CREATININE (test code = 2214) 0.44 MG/DL eGFR AMER. (test cod e = 73036) 148 ML/MIN/1.73 eGFR NON- AMER. (test code = 69996) 128 ML/MIN/1.73 CALC BUN/CREAT (test code = 2235) 18 RATIO SODIUM (test code = 2231) 135 MEQ/L POTASSIUM (test code = 2228) 4.0 MEQ/L CHLORIDE (test code = 2215) 98 MEQ/L CARBON DIOXIDE (test code = 2206) 24 MEQ/L CALCIUM (test code = 2209) 9.7 MG/DL PROTEIN, TOTAL (test code = 2229) 7.4 G/DL ALBUMIN (test code = 2201) 4.5 G/DL CALC GLOBULIN (test code = 2240) 2.9 G/DL CALC A/G RATIO (test code = 2234) 1.6 RATIO BILIRUBIN, TOTAL (test code = 2207) 0.6 MG/DL ALKALINE PHOSPHATASE (test code = 2204) 86 U/L AST (test code = 2218) 15 U/L ALT (test code = 2219) 14 U/L HEMOGLOBIN [id number] 00:00:00* Test Item Value Reference Range Interpretation Comme nts HEMOGLOBIN A1c (test code = 92772) 13.1 % LIPID [id number] 00:00:00* Test Item Value Reference Range Interpretation Comme nts CHOLESTEROL (test code = 2210) 231 MG/DL TRIGLYCERIDES (test code = 2232) 324 MG/DL HDL CHOLESTEROL (test code = 2220) 43 MG/DL CALC LDL CHOL (test code = 2237) 123 MG/DL RISK RATIO LDL/HDL (test cod e = 2238) 2.87 RATIO LIPID [id number] 00:00:00* Test Item Value Reference Range Interpretation Comme nts CHOLESTEROL (test code = 2210) 231 MG/DL TRIGLYCERIDES (test code = 2232) 324 MG/DL HDL CHOLESTEROL (test code = 2220) 43 MG/DL CALC LDL CHOL (test code = 2237) 123 MG/DL RISK RATIO LDL/HDL (test cod e = 2238) 2.87 RATIO COMPREHENSIVE METABOLIC [id number] 00:00:00* Test Item Value Reference Range Interpretation Comme nts GLUCOSE (test code = 2217) 282 MG/DL BUN (test code = 2208) 8 MG/DL CREATININE (test code = 2214) 0.44 MG/DL eGFR AMER. (test cod e = 33084) 148 ML/MIN/1.73 eGFR NON- AMER. (test code = 51078) 128 ML/MIN/1.73 CALC BUN/CREAT (test code = 2235) 18 RATIO SODIUM (test code = 2231) 135 MEQ/L POTASSIUM (test code = 2228) 4.0 MEQ/L CHLORIDE (test code = 2215) 98 MEQ/L CARBON DIOXIDE (test code = 2206) 24 MEQ/L CALCIUM (test code = 2209) 9.7 MG/DL PROTEIN, TOTAL (test code = 2229) 7.4 G/DL ALBUMIN (test code = 2201) 4.5 G/DL CALC GLOBULIN (test code = 2240) 2.9 G/DL CALC A/G RATIO (test code = 2234) 1.6 RATIO BILIRUBIN, TOTAL (test code = 2207) 0.6 MG/DL ALKALINE PHOSPHATASE (test code = 2204) 86 U/L AST (test code = 2218) 15 U/L ALT (test code = 2219) 14 U/L HEMOGLOBIN [id number] 00:00:00* Test Item Value Reference Range Interpretation Comme nts HEMOGLOBIN A1c (test code = 49479) 13.1 % HEMOGLOBIN [id number] 00:00:00* Test Item Value Reference Range Interpretation Comme nts HEMOGLOBIN A1c (test code = 33572) 14.8 % LIPID [id number] 00:00:00* Test Item Value Reference Range Interpretation Comme nts CHOLESTEROL (test code = 2210) 218 MG/DL TRIGLYCERIDES (test code = 2232) 414 MG/DL HDL CHOLESTEROL (test code = 2220) 36 MG/DL CALC LDL CHOL (test code = 2237) NOTE MG/DL RISK RATIO LDL/HDL (test cod e = 2238) (NOTE) RATIO CBC W/AUTO [id number] 00:00:00* Test Item Value Reference Range Interpretation Comme nts WBC (test code = 1001) 9.6 K/UL [...] (test code = 1015) 241 K/UL HEMOGLOBIN [id number] 00:00:00* Test Item Value Reference Range Interpretation Comme nts HEMOGLOBIN A1c (test code = 46001) 14.8 % MICROALBUMIN, [id number] 00:00:00* Test Item Value Reference Range Interpretation Comme nts MICROALBUMIN, RANDOM (test c ode = 75667) 0.3 MG/DL COMPREHENSIVE METABOLIC [id number] 00:00:00* Test Item Value Reference Range Interpretation Comme nts GLUCOSE (test code = 2217) 451 MG/DL BUN (test code = 2208) 9 MG/DL CREATININE (test code = 2214) 0.51 MG/DL eGFR AMER. (test cod e = 96457) 141 ML/MIN/1.73 eGFR NON- AMER. (test code = 78539) 122 ML/MIN/1.73 CALC BUN/CREAT (test code = 2235) 18 RATIO SODIUM (test code = 2231) 130 MEQ/L POTASSIUM (test code = 2228) 3.9 MEQ/L CHLORIDE (test code = 2215) 92 MEQ/L CARBON DIOXIDE (test code = 2206) 27 MEQ/L CALCIUM (test code = 2209) 9.6 MG/DL PROTEIN, TOTAL (test code = 2229) 7.2 G/DL ALBUMIN (test code = 2201) 4.3 G/DL CALC GLOBULIN (test code = 2240) 2.9 G/DL CALC A/G RATIO (test code = 2234) 1.5 RATIO BILIRUBIN, TOTAL (test code = 2207) 0.4 MG/DL ALKALINE PHOSPHATASE (test code = 2204) 108 U/L AST (test code = 2218) 14 U/L ALT (test code = 2219) 19 U/L LIPID [id number] 00:00:00* Test Item Value Reference Range Interpretation Comme nts CHOLESTEROL (test code = 2210) 218 MG/DL TRIGLYCERIDES (test code = 2232) 414 MG/DL HDL CHOLESTEROL (test code = 2220) 36 MG/DL CALC LDL CHOL (test code = 2237) NOTE MG/DL RISK RATIO LDL/HDL (test cod e = 2238) (NOTE) RATIO CBC W/AUTO [id number] 00:00:00* Test Item Value Reference Range Interpretation Comme nts WBC (test code = 1001) 9.6 K/UL [...] (test code = 1015) 241 K/UL HEMOGLOBIN [id number] 00:00:00* Test Item Value Reference Range Interpretation Comme nts HEMOGLOBIN A1c (test code = 16583) 14.8 % MICROALBUMIN, [id number] 00:00:00* Test Item Value Reference Range Interpretation Comme nts MICROALBUMIN, RANDOM (test c ode = 27507) 0.3 MG/DL COMPREHENSIVE METABOLIC [id number] 00:00:00* Test Item Value Reference Range Interpretation Comme nts GLUCOSE (test code = 2217) 451 MG/DL BUN (test code = 2208) 9 MG/DL CREATININE (test code = 2214) 0.51 MG/DL eGFR AMER. (test cod e = 67685) 141 ML/MIN/1.73 eGFR NON- AMER. (test code = 40599) 122 ML/MIN/1.73 CALC BUN/CREAT (test code = 2235) 18 RATIO SODIUM (test code = 2231) 130 MEQ/L POTASSIUM (test code = 2228) 3.9 MEQ/L CHLORIDE (test code = 2215) 92 MEQ/L CARBON DIOXIDE (test code = 2206) 27 MEQ/L CALCIUM (test code = 2209) 9.6 MG/DL PROTEIN, TOTAL (test code = 2229) 7.2 G/DL ALBUMIN (test code = 2201) 4.3 G/DL CALC GLOBULIN (test code = 2240) 2.9 G/DL CALC A/G RATIO (test code = 2234) 1.5 RATIO BILIRUBIN, TOTAL (test code = 2207) 0.4 MG/DL ALKALINE PHOSPHATASE (test code = 2204) 108 U/L AST (test code = 2218) 14 U/L ALT (test code = 2219) 19 U/L LIPID [id number] 00:00:00* Test Item Value Reference Range Interpretation Comme nts CHOLESTEROL (test code = 2210) 218 MG/DL TRIGLYCERIDES (test code = 2232) 414 MG/DL HDL CHOLESTEROL (test code = 2220) 36 MG/DL CALC LDL CHOL (test code = 2237) NOTE MG/DL RISK RATIO LDL/HDL (test cod e = 2238) (NOTE) RATIO CBC W/AUTO [id number] 00:00:00* Test Item Value Reference Range Interpretation Comme nts WBC (test code = 1001) 9.6 K/UL [...] (test code = 1015) 241 K/UL HEMOGLOBIN [id number] 00:00:00* Test Item Value Reference Range Interpretation Comme nts HEMOGLOBIN A1c (test code = 84986) 14.8 % COMPREHENSIVE METABOLIC [id number] 00:00:00* Test Item Value Reference Range Interpretation Comme nts GLUCOSE (test code = 2217) 451 MG/DL BUN (test code = 2208) 9 MG/DL CREATININE (test code = 2214) 0.51 MG/DL eGFR AMER. (test cod e = 37250) 141 ML/MIN/1.73 eGFR NON- AMER. (test code = 09733) 122 ML/MIN/1.73 CALC BUN/CREAT (test code = 2235) 18 RATIO SODIUM (test code = 2231) 130 MEQ/L POTASSIUM (test code = 2228) 3.9 MEQ/L CHLORIDE (test code = 2215) 92 MEQ/L CARBON DIOXIDE (test code = 2206) 27 MEQ/L CALCIUM (test code = 2209) 9.6 MG/DL PROTEIN, TOTAL (test code = 2229) 7.2 G/DL ALBUMIN (test code = 2201) 4.3 G/DL CALC GLOBULIN (test code = 2240) 2.9 G/DL CALC A/G RATIO (test code = 2234) 1.5 RATIO BILIRUBIN, TOTAL (test code = 2207) 0.4 MG/DL ALKALINE PHOSPHATASE (test code = 2204) 108 U/L AST (test code = 2218) 14 U/L ALT (test code = 2219) 19 U/L MICROALBUMIN, [id number] 00:00:00* Test Item Value Reference Range Interpretation Comme nts MICROALBUMIN, RANDOM (test c ode = 03934) 0.3 MG/DL LIPID [id number] 00:00:00* Test Item Value Reference Range Interpretation Comme nts CHOLESTEROL (test code = 2210) 218 MG/DL TRIGLYCERIDES (test code = 2232) 414 MG/DL HDL CHOLESTEROL (test code = 2220) 36 MG/DL CALC LDL CHOL (test code = 2237) NOTE MG/DL RISK RATIO LDL/HDL (test cod e = 2238) (NOTE) RATIO CBC W/AUTO [id number] 00:00:00* Test Item Value Reference Range Interpretation Comme nts WBC (test code = 1001) 9.6 K/UL [...] (test code = 1015) 241 K/UL HEMOGLOBIN [id number] 00:00:00* Test Item Value Reference Range Interpretation Comme nts HEMOGLOBIN A1c (test code = 54225) 14.8 % COMPREHENSIVE METABOLIC [id number] 00:00:00* Test Item Value Reference Range Interpretation Comme nts GLUCOSE (test code = 2217) 451 MG/DL BUN (test code = 2208) 9 MG/DL CREATININE (test code = 2214) 0.51 MG/DL eGFR AMER. (test cod e = 23237) 141 ML/MIN/1.73 eGFR NON- AMER. (test code = 30257) 122 ML/MIN/1.73 CALC BUN/CREAT (test code = 2235) 18 RATIO SODIUM (test code = 2231) 130 MEQ/L POTASSIUM (test code = 2228) 3.9 MEQ/L CHLORIDE (test code = 2215) 92 MEQ/L CARBON DIOXIDE (test code = 2206) 27 MEQ/L CALCIUM (test code = 2209) 9.6 MG/DL PROTEIN, TOTAL (test code = 2229) 7.2 G/DL ALBUMIN (test code = 2201) 4.3 G/DL CALC GLOBULIN (test code = 2240) 2.9 G/DL CALC A/G RATIO (test code = 2234) 1.5 RATIO BILIRUBIN, TOTAL (test code = 2207) 0.4 MG/DL ALKALINE PHOSPHATASE (test code = 2204) 108 U/L AST (test code = 2218) 14 U/L ALT (test code = 2219) 19 U/L MICROALBUMIN, [id number] 00:00:00* Test Item Value Reference Range Interpretation Comme nts MICROALBUMIN, RANDOM (test c ode = 18756) 0.3 MG/DL LIPID [id number] 00:00:00* Test Item Value Reference Range Interpretation Comme nts CHOLESTEROL (test code = 2210) 218 MG/DL TRIGLYCERIDES (test code = 2232) 414 MG/DL HDL CHOLESTEROL (test code = 2220) 36 MG/DL CALC LDL CHOL (test code = 2237) NOTE MG/DL RISK RATIO LDL/HDL (test cod e = 2238) (NOTE) RATIO CBC W/AUTO [id number] 00:00:00* Test Item Value Reference Range Interpretation Comme nts WBC (test code = 1001) 9.6 K/UL [...] (test code = 1015) 241 K/UL HEMOGLOBIN [id number] 00:00:00* Test Item Value Reference Range Interpretation Comme nts HEMOGLOBIN A1c (test code = 17738) 14.8 % MICROALBUMIN, [id number] 00:00:00* Test Item Value Reference Range Interpretation Comme nts MICROALBUMIN, RANDOM (test c ode = 48808) 0.3 MG/DL COMPREHENSIVE METABOLIC [id number] 00:00:00* Test Item Value Reference Range Interpretation Comme nts GLUCOSE (test code = 2217) 451 MG/DL BUN (test code = 2208) 9 MG/DL CREATININE (test code = 2214) 0.51 MG/DL eGFR AMER. (test cod e = 77513) 141 ML/MIN/1.73 eGFR NON- AMER. (test code = 70783) 122 ML/MIN/1.73 CALC BUN/CREAT (test code = 2235) 18 RATIO SODIUM (test code = 2231) 130 MEQ/L POTASSIUM (test code = 2228) 3.9 MEQ/L CHLORIDE (test code = 2215) 92 MEQ/L CARBON DIOXIDE (test code = 2206) 27 MEQ/L CALCIUM (test code = 2209) 9.6 MG/DL PROTEIN, TOTAL (test code = 2229) 7.2 G/DL ALBUMIN (test code = 2201) 4.3 G/DL CALC GLOBULIN (test code = 2240) 2.9 G/DL CALC A/G RATIO (test code = 2234) 1.5 RATIO BILIRUBIN, TOTAL (test code = 2207) 0.4 MG/DL ALKALINE PHOSPHATASE (test code = 2204) 108 U/L AST (test code = 2218) 14 U/L ALT (test code = 2219) 19 U/L COMPREHENSIVE METABOLIC [id number] 00:00:00* Test Item Value Reference Range Interpretation Comme nts GLUCOSE (test code = 2217) 451 MG/DL BUN (test code = 2208) 9 MG/DL CREATININE (test code = 2214) 0.51 MG/DL eGFR AMER. (test cod e = 41958) 141 ML/MIN/1.73 eGFR NON- AMER. (test code = 09278) 122 ML/MIN/1.73 CALC BUN/CREAT (test code = 2235) 18 RATIO SODIUM (test code = 2231) 130 MEQ/L POTASSIUM (test code = 2228) 3.9 MEQ/L CHLORIDE (test code = 2215) 92 MEQ/L CARBON DIOXIDE (test code = 2206) 27 MEQ/L CALCIUM (test code = 2209) 9.6 MG/DL PROTEIN, TOTAL (test code = 2229) 7.2 G/DL ALBUMIN (test code = 2201) 4.3 G/DL CALC GLOBULIN (test code = 2240) 2.9 G/DL CALC A/G RATIO (test code = 2234) 1.5 RATIO BILIRUBIN, TOTAL (test code = 2207) 0.4 MG/DL ALKALINE PHOSPHATASE (test code = 2204) 108 U/L AST (test code = 2218) 14 U/L ALT (test code = 2219) 19 U/L MICROALBUMIN, [id number] 00:00:00* Test Item Value Reference Range Interpretation Comme nts MICROALBUMIN, RANDOM (test c ode = 32800) 0.3 MG/DL LIPID [id number] 00:00:00* Test Item Value Reference Range Interpretation Comme nts CHOLESTEROL (test code = 2210) 218 MG/DL TRIGLYCERIDES (test code = 2232) 414 MG/DL HDL CHOLESTEROL (test code = 2220) 36 MG/DL CALC LDL CHOL (test code = 2237) NOTE MG/DL RISK RATIO LDL/HDL (test cod e = 2238) (NOTE) RATIO CBC W/AUTO [id number] 00:00:00* Test Item Value Reference Range Interpretation Comme nts WBC (test code = 1001) 9.6 K/UL [...] COUNT (test code = 1015) 241 K/UL LIPID [id number] 00:00:00* Test Item Value Reference Range Interpretation Comme nts CHOLESTEROL (test code = 2210) 185 MG/DL TRIGLYCERIDES (test code = 2232) 394 MG/DL HDL CHOLESTEROL (test code = 2220) 34 MG/DL CALC LDL CHOL (test code = 2237) 72 MG/DL RISK RATIO LDL/HDL (test cod e = 2238) 2.12 RATIO THYROID II PROFILE (T3U, T4, T7, TSH)[id number] 00:00:00* Test Item Value Reference Range Interpretation Comme nts T3 UPTAKE (test code = 2817) 32.1 % T4 (THYROXINE) (test code = 2819) 7.0 UG/DL CALCULATED T7 (FTI) (test co de = 2820) 2.25 TSH (test code = 2821) 1.1 UIU/ML CBC W/AUTO [id number] 00:00:00* Test Item Value Reference Range Interpretation Comme nts WBC (test code = 1001) 10.5 K/UL [...] code = 1015) 295 K/UL COMPREHENSIVE METABOLIC [id number] 00:00:00* Test Item Value Reference Range Interpretation Comme nts GLUCOSE (test code = 2217) 343 MG/DL BUN (test code = 2208) 9 MG/DL CREATININE (test code = 2214) 0.56 MG/DL eGFR AMER. (test cod e = 80247) 138 ML/MIN/1.73 eGFR NON- AMER. (test code = 34773) 119 ML/MIN/1.73 CALC BUN/CREAT (test code = 2235) 16 RATIO SODIUM (test code = 2231) 134 MEQ/L POTASSIUM (test code = 2228) 4.1 MEQ/L CHLORIDE (test code = 2215) 93 MEQ/L CARBON DIOXIDE (test code = 2206) 21 MEQ/L CALCIUM (test code = 2209) 9.4 MG/DL PROTEIN, TOTAL (test code = 2229) 7.1 G/DL ALBUMIN (test code = 2201) 4.4 G/DL CALC GLOBULIN (test code = 2240) 2.7 G/DL CALC A/G RATIO (test code = 2234) 1.6 RATIO BILIRUBIN, TOTAL (test code = 2207) 0.7 MG/DL ALKALINE PHOSPHATASE (test code = 2204) 66 U/L AST (test code = 2218) 27 U/L ALT (test code = 2219) 40 U/L LIPID [id number] 00:00:00* Test Item Value Reference Range Interpretation Comme nts CHOLESTEROL (test code = 2210) 185 MG/DL TRIGLYCERIDES (test code = 2232) 394 MG/DL HDL CHOLESTEROL (test code = 2220) 34 MG/DL CALC LDL CHOL (test code = 2237) 72 MG/DL RISK RATIO LDL/HDL (test cod e = 2238) 2.12 RATIO THYROID II PROFILE (T3U, T4, T7, TSH)2016-02-22 00:00:00* Test Item Value Reference Range Interpretation Comme nts T3 UPTAKE (test code = 2817) 32.1 % T4 (THYROXINE) (test code = 2819) 7.0 UG/DL CALCULATED T7 (FTI) (test co de = 2820) 2.25 TSH (test code = 2821) 1.1 UIU/ML HEMOGLOBIN [id number] 00:00:00* Test Item Value Reference Range Interpretation Comme nts HEMOGLOBIN A1c (test code = 51232) 10.4 % CBC W/AUTO [id number] 00:00:00* Test Item Value Reference Range Interpretation Comme nts WBC (test code = 1001) 10.5 K/UL [...] code = 1015) 295 K/UL COMPREHENSIVE METABOLIC [id number] 00:00:00* Test Item Value Reference Range Interpretation Comme nts GLUCOSE (test code = 2217) 343 MG/DL BUN (test code = 2208) 9 MG/DL CREATININE (test code = 2214) 0.56 MG/DL eGFR AMER. (test cod e = 59154) 138 ML/MIN/1.73 eGFR NON- AMER. (test code = 52464) 119 ML/MIN/1.73 CALC BUN/CREAT (test code = 2235) 16 RATIO SODIUM (test code = 2231) 134 MEQ/L POTASSIUM (test code = 2228) 4.1 MEQ/L CHLORIDE (test code = 2215) 93 MEQ/L CARBON DIOXIDE (test code = 2206) 21 MEQ/L CALCIUM (test code = 2209) 9.4 MG/DL PROTEIN, TOTAL (test code = 2229) 7.1 G/DL ALBUMIN (test code = 2201) 4.4 G/DL CALC GLOBULIN (test code = 2240) 2.7 G/DL CALC A/G RATIO (test code = 2234) 1.6 RATIO BILIRUBIN, TOTAL (test code = 2207) 0.7 MG/DL ALKALINE PHOSPHATASE (test code = 2204) 66 U/L AST (test code = 2218) 27 U/L ALT (test code = 2219) 40 U/L LIPID [id number] 00:00:00* Test Item Value Reference Range Interpretation Comme nts CHOLESTEROL (test code = 2210) 185 MG/DL TRIGLYCERIDES (test code = 2232) 394 MG/DL HDL CHOLESTEROL (test code = 2220) 34 MG/DL CALC LDL CHOL (test code = 2237) 72 MG/DL RISK RATIO LDL/HDL (test cod e = 2238) 2.12 RATIO THYROID II PROFILE (T3U, T4, T7, TSH)2016-02-22 00:00:00* Test Item Value Reference Range Interpretation Comme nts T3 UPTAKE (test code = 2817) 32.1 % T4 (THYROXINE) (test code = 2819) 7.0 UG/DL CALCULATED T7 (FTI) (test co de = 2820) 2.25 TSH (test code = 2821) 1.1 UIU/ML HEMOGLOBIN [id number] 00:00:00* Test Item Value Reference Range Interpretation Comme nts HEMOGLOBIN A1c (test code = 76294) 10.4 % CBC W/AUTO [id number] 00:00:00* Test Item Value Reference Range Interpretation Comme nts WBC (test code = 1001) 10.5 K/UL [...] code = 1015) 295 K/UL COMPREHENSIVE METABOLIC [id number] 00:00:00* Test Item Value Reference Range Interpretation Comme nts GLUCOSE (test code = 2217) 343 MG/DL BUN (test code = 2208) 9 MG/DL CREATININE (test code = 2214) 0.56 MG/DL eGFR AMER. (test cod e = 21321) 138 ML/MIN/1.73 eGFR NON- AMER. (test code = 03885) 119 ML/MIN/1.73 CALC BUN/CREAT (test code = 2235) 16 RATIO SODIUM (test code = 2231) 134 MEQ/L POTASSIUM (test code = 2228) 4.1 MEQ/L CHLORIDE (test code = 2215) 93 MEQ/L CARBON DIOXIDE (test code = 2206) 21 MEQ/L CALCIUM (test code = 2209) 9.4 MG/DL PROTEIN, TOTAL (test code = 2229) 7.1 G/DL ALBUMIN (test code = 2201) 4.4 G/DL CALC GLOBULIN (test code = 2240) 2.7 G/DL CALC A/G RATIO (test code = 2234) 1.6 RATIO BILIRUBIN, TOTAL (test code = 2207) 0.7 MG/DL ALKALINE PHOSPHATASE (test code = 2204) 66 U/L AST (test code = 2218) 27 U/L ALT (test code = 2219) 40 U/L LIPID [id number] 00:00:00* Test Item Value Reference Range Interpretation Comme nts CHOLESTEROL (test code = 2210) 185 MG/DL TRIGLYCERIDES (test code = 2232) 394 MG/DL HDL CHOLESTEROL (test code = 2220) 34 MG/DL CALC LDL CHOL (test code = 2237) 72 MG/DL RISK RATIO LDL/HDL (test cod e = 2238) 2.12 RATIO THYROID II PROFILE (T3U, T4, T7, TSH)2016-02-22 00:00:00* Test Item Value Reference Range Interpretation Comme nts T3 UPTAKE (test code = 2817) 32.1 % T4 (THYROXINE) (test code = 2819) 7.0 UG/DL CALCULATED T7 (FTI) (test co de = 2820) 2.25 TSH (test code = 2821) 1.1 UIU/ML HEMOGLOBIN [id number] 00:00:00* Test Item Value Reference Range Interpretation Comme nts HEMOGLOBIN A1c (test code = 35809) 10.4 % CBC W/AUTO [id number] 00:00:00* Test Item Value Reference Range Interpretation Comme nts WBC (test code = 1001) 10.5 K/UL [...] code = 1015) 295 K/UL COMPREHENSIVE METABOLIC [id number] 00:00:00* Test Item Value Reference Range Interpretation Comme nts GLUCOSE (test code = 2217) 343 MG/DL BUN (test code = 2208) 9 MG/DL CREATININE (test code = 2214) 0.56 MG/DL eGFR AMER. (test cod e = 77740) 138 ML/MIN/1.73 eGFR NON- AMER. (test code = 91593) 119 ML/MIN/1.73 CALC BUN/CREAT (test code = 2235) 16 RATIO SODIUM (test code = 2231) 134 MEQ/L POTASSIUM (test code = 2228) 4.1 MEQ/L CHLORIDE (test code = 2215) 93 MEQ/L CARBON DIOXIDE (test code = 2206) 21 MEQ/L CALCIUM (test code = 2209) 9.4 MG/DL PROTEIN, TOTAL (test code = 2229) 7.1 G/DL ALBUMIN (test code = 2201) 4.4 G/DL CALC GLOBULIN (test code = 2240) 2.7 G/DL CALC A/G RATIO (test code = 2234) 1.6 RATIO BILIRUBIN, TOTAL (test code = 2207) 0.7 MG/DL ALKALINE PHOSPHATASE (test code = 2204) 66 U/L AST (test code = 2218) 27 U/L ALT (test code = 2219) 40 U/L LIPID [id number] 00:00:00* Test Item Value Reference Range Interpretation Comme nts CHOLESTEROL (test code = 2210) 185 MG/DL TRIGLYCERIDES (test code = 2232) 394 MG/DL HDL CHOLESTEROL (test code = 2220) 34 MG/DL CALC LDL CHOL (test code = 2237) 72 MG/DL RISK RATIO LDL/HDL (test cod e = 2238) 2.12 RATIO THYROID II PROFILE (T3U, T4, T7, TSH)2016-02-22 00:00:00* Test Item Value Reference Range Interpretation Comme nts T3 UPTAKE (test code = 2817) 32.1 % T4 (THYROXINE) (test code = 2819) 7.0 UG/DL CALCULATED T7 (FTI) (test co de = 2820) 2.25 TSH (test code = 2821) 1.1 UIU/ML HEMOGLOBIN [id number] 00:00:00* Test Item Value Reference Range Interpretation Comme nts HEMOGLOBIN A1c (test code = 57234) 10.4 % CBC W/AUTO [id number] 00:00:00* Test Item Value Reference Range Interpretation Comme nts WBC (test code = 1001) 10.5 K/UL [...] code = 1015) 295 K/UL COMPREHENSIVE METABOLIC [id number] 00:00:00* Test Item Value Reference Range Interpretation Comme nts GLUCOSE (test code = 2217) 343 MG/DL BUN (test code = 2208) 9 MG/DL CREATININE (test code = 2214) 0.56 MG/DL eGFR AMER. (test cod e = 03760) 138 ML/MIN/1.73 eGFR NON- AMER. (test code = 28980) 119 ML/MIN/1.73 CALC BUN/CREAT (test code = 2235) 16 RATIO SODIUM (test code = 2231) 134 MEQ/L POTASSIUM (test code = 2228) 4.1 MEQ/L CHLORIDE (test code = 2215) 93 MEQ/L CARBON DIOXIDE (test code = 2206) 21 MEQ/L CALCIUM (test code = 2209) 9.4 MG/DL PROTEIN, TOTAL (test code = 2229) 7.1 G/DL ALBUMIN (test code = 2201) 4.4 G/DL CALC GLOBULIN (test code = 2240) 2.7 G/DL CALC A/G RATIO (test code = 2234) 1.6 RATIO BILIRUBIN, TOTAL (test code = 2207) 0.7 MG/DL ALKALINE PHOSPHATASE (test code = 2204) 66 U/L AST (test code = 2218) 27 U/L ALT (test code = 2219) 40 U/L LIPID [id number] 00:00:00* Test Item Value Reference Range Interpretation Comme nts CHOLESTEROL (test code = 2210) 185 MG/DL TRIGLYCERIDES (test code = 2232) 394 MG/DL HDL CHOLESTEROL (test code = 2220) 34 MG/DL CALC LDL CHOL (test code = 2237) 72 MG/DL RISK RATIO LDL/HDL (test cod e = 2238) 2.12 RATIO THYROID II PROFILE (T3U, T4, T7, TSH)2016-02-22 00:00:00* Test Item Value Reference Range Interpretation Comme nts T3 UPTAKE (test code = 2817) 32.1 % T4 (THYROXINE) (test code = 2819) 7.0 UG/DL CALCULATED T7 (FTI) (test co de = 2820) 2.25 TSH (test code = 2821) 1.1 UIU/ML HEMOGLOBIN [id number] 00:00:00* Test Item Value Reference Range Interpretation Comme nts HEMOGLOBIN A1c (test code = 20980) 10.4 % HEMOGLOBIN [id number] 00:00:00* Test Item Value Reference Range Interpretation Comme nts HEMOGLOBIN A1c (test code = 53275) 10.4 % CBC W/AUTO [id number] 00:00:00* Test Item Value Reference Range Interpretation Comme nts WBC (test code = 1001) 10.5 K/UL [...] code = 1015) 295 K/UL COMPREHENSIVE METABOLIC [id number] 00:00:00* Test Item Value Reference Range Interpretation Comme nts GLUCOSE (test code = 2217) 343 MG/DL BUN (test code = 2208) 9 MG/DL CREATININE (test code = 2214) 0.56 MG/DL eGFR AMER. (test cod e = 62569) 138 ML/MIN/1.73 eGFR NON- AMER. (test code = 05476) 119 ML/MIN/1.73 CALC BUN/CREAT (test code = 2235) 16 RATIO SODIUM (test code = 223) 134 MEQ/L POTASSIUM (test code = 2228) 4.1 MEQ/L CHLORIDE (test code = 2215) 93 MEQ/L CARBON DIOXIDE (test code = 2206) 21 MEQ/L CALCIUM (test code = 2209) 9.4 MG/DL PROTEIN, TOTAL (test code = 222) 7.1 G/DL ALBUMIN (test code = 220) 4.4 G/DL CALC GLOBULIN (test code = 2240) 2.7 G/DL CALC A/G RATIO (test code = 2234) 1.6 RATIO BILIRUBIN, TOTAL (test code = 2206) 0.7 MG/DL ALKALINE PHOSPHATASE (test code = 2203) 66 U/L AST (test code = 2218) 27 U/L ALT (test code = 221) 40 U/L MICROALBUMIN, [id number] 00:00:00* Test Item Value Reference Range Interpretation Comme nts MICROALBUMIN, RANDOM (test c ode = 32504) 0.7 MG/DL HEMOGLOBIN [id number] 00:00:00* Test Item Value Reference Range Interpretation Comme nts HEMOGLOBIN A1c (test code = 89294) 14.8 % MICROALBUMIN, [id number] 00:00:00* Test Item Value Reference Range Interpretation Comme nts MICROALBUMIN, RANDOM (test c ode = 55346) 0.7 MG/DL HEMOGLOBIN [id number] 00:00:00* Test Item Value Reference Range Interpretation Comme nts HEMOGLOBIN A1c (test code = 36583) 14.8 % MICROALBUMIN, [id number] 00:00:00* Test Item Value Reference Range Interpretation Comme nts MICROALBUMIN, RANDOM (test c ode = 60563) 0.7 MG/DL HEMOGLOBIN [id number] 00:00:00* Test Item Value Reference Range Interpretation Comme nts HEMOGLOBIN A1c (test code = 43266) 14.8 % MICROALBUMIN, [id number] 00:00:00* Test Item Value Reference Range Interpretation Comme nts MICROALBUMIN, RANDOM (test c ode = 92798) 0.7 MG/DL HEMOGLOBIN [id number] 00:00:00* Test Item Value Reference Range Interpretation Comme [facility] HEMOGLOBIN A1c (test code = 56732) 14.8 % MICROALBUMIN, [id number] 00:00:00* Test Item Value Reference Range Interpretation Comme nts MICROALBUMIN, RANDOM (test c ode = 49431) 0.7 MG/DL HEMOGLOBIN [id number] 00:00:00* Test Item Value Reference Range Interpretation Comme nts HEMOGLOBIN A1c (test code = 89177) 14.8 % HEMOGLOBIN [id number] 00:00:00* Test Item Value Reference Range Interpretation Comme nts HEMOGLOBIN A1c (test code = 33581) 14.8 % MICROALBUMIN, [id number] 00:00:00* Test Item Value Reference Range Interpretation Comme nts MICROALBUMIN, RANDOM (test c ode = 31404) 0.7 MG/DL IRON BINDING CAPACITY AND IRON AND % [id number] 00:00:00* Test Item Value Reference Range [facility]ation [facility], [facility]UM (test code = 2222) 82 UG/DL UNSATURATED IBC (test code = 15783) 296 UG/DL CALCULATED TOTAL IBC (test c ode = 2077) 378 UG/DL CALCULATED % IRON SAT (test code = 2079) 22 % CBC W/AUTO [id number] 00:00:00* Test Item Value Reference Range Interpretation Comme [facility] WBC (test code = 1001) 9.5 K/UL [...] COUNT (test code = 1015) 233 K/UL [id number] 00:00:00* Test Item Value Reference Range Interpretation Comme nts FERRITIN (test code = 2074) 36 NG/ML RETICULOCYTE [id number] 00:00:00* Test Item Value Reference Range Interpretation Comme nts RETICULOCYTE COUNT (test code = 1018) 0.9 % IRON BINDING CAPACITY AND IRON AND % [id number] 00:00:00* Test Item Value Reference Range Interpretation Comme nts IRON, SERUM (test code = 2) 82 UG/DL UNSATURATED IBC (test code = 82649) 296 UG/DL CALCULATED TOTAL IBC (test c ode = 2076) 378 UG/DL CALCULATED % IRON SAT (test code = 2078) 22 % CBC W/AUTO [id number] 00:00:00* Test Item Value Reference Range Interpretation Comme nts WBC (test code = 1001) 9.5 K/UL [...] 233 K/UL VITAMIN B 12 AND FOLIC [id number] 00:00:00* Test Item Value Reference Range Interpretation Comme nts VITAMIN B-12 (test code = 2840) 764 PG/ML FOLIC ACID (test code = 2695) 18.6 NG/ML [id number] 00:00:00* Test Item Value Reference Range Interpretation Comme nts FERRITIN (test code = 2074) 36 NG/ML RETICULOCYTE [id number] 00:00:00* Test Item Value Reference Range Interpretation Comme nts RETICULOCYTE COUNT (test code = 1018) 0.9 % IRON BINDING CAPACITY AND IRON AND % [id number] 00:00:00* Test Item Value Reference Range Interpretation Comme nts IRON, SERUM (test code = 2) 82 UG/DL UNSATURATED IBC (test code = ) 296 UG/DL CALCULATED TOTAL IBC (test c ode = 2076) 378 UG/DL CALCULATED % IRON SAT (test code = 2078) 22 % CBC W/AUTO [id number] 00:00:00* Test Item Value Reference Range Interpretation Comme nts WBC (test code = 1001) 9.5 K/UL [...] 233 K/UL VITAMIN B 12 AND FOLIC [id number] 00:00:00* Test Item Value Reference Range Interpretation Comme nts VITAMIN B-12 (test code = 2840) 764 PG/ML FOLIC ACID (test code = 2695) 18.6 NG/ML [id number] 00:00:00* Test Item Value Reference Range Interpretation Comme nts FERRITIN (test code = 2075) 36 NG/ML RETICULOCYTE [id number] 00:00:00* Test Item Value Reference Range Interpretation Comme nts RETICULOCYTE COUNT (test code = 1018) 0.9 % IRON BINDING CAPACITY AND IRON AND % [id number] 00:00:00* Test Item Value Reference Range Interpretation Comme nts IRON, SERUM (test code = 222) 82 UG/DL UNSATURATED IBC (test code = ) 296 UG/DL CALCULATED TOTAL IBC (test c ode = 2076) 378 UG/DL CALCULATED % IRON SAT (test code = 2078) 22 % CBC W/AUTO [id number] 00:00:00* Test Item Value Reference Range Interpretation Comme nts WBC (test code = 1001) 9.5 K/UL [...] 233 K/UL VITAMIN B 12 AND FOLIC [id number] 00:00:00* Test Item Value Reference Range Interpretation Comme nts VITAMIN B-12 (test code = 2840) 764 PG/ML FOLIC ACID (test code = 2695) 18.6 NG/ML [id number] 00:00:00* Test Item Value Reference Range Interpretation Comme nts FERRITIN (test code = 2075) 36 NG/ML RETICULOCYTE [id number] 00:00:00* Test Item Value Reference Range Interpretation Comme nts RETICULOCYTE COUNT (test code = 1018) 0.9 % IRON BINDING CAPACITY AND IRON AND % [id number] 00:00:00* Test Item Value Reference Range Interpretation Comme nts IRON, SERUM (test code = 2222) 82 UG/DL UNSATURATED IBC (test code = 49006) 296 UG/DL CALCULATED TOTAL IBC (test c ode = 7) 378 UG/DL CALCULATED % IRON SAT (test code = 2079) 22 % CBC W/AUTO [id number] 00:00:00* Test Item Value Reference Range Interpretation Comme nts WBC (test code = 1001) 9.5 K/UL [...] 233 K/UL VITAMIN B 12 AND FOLIC [id number] 00:00:00* Test Item Value Reference Range Interpretation Comme nts VITAMIN B-12 (test code = 2840) 764 PG/ML FOLIC ACID (test code = 2695) 18.6 NG/ML [id number] 00:00:00* Test Item Value Reference Range Interpretation Comme nts FERRITIN (test code = 5) 36 NG/ML RETICULOCYTE [id number] 00:00:00* Test Item Value Reference Range Interpretation Comme nts RETICULOCYTE COUNT (test code = 1018) 0.9 % IRON BINDING CAPACITY AND IRON AND % [id number] 00:00:00* Test Item Value Reference Range Interpretation Comme nts IRON, SERUM (test code = 2222) 82 UG/DL UNSATURATED IBC (test code = 60377) 296 UG/DL CALCULATED TOTAL IBC (test c ode = 2076) 378 UG/DL CALCULATED % IRON SAT (test code = 2078) 22 % CBC W/AUTO [id number] 00:00:00* Test Item Value Reference Range Interpretation Comme nts WBC (test code = 1001) 9.5 K/UL [...] 233 K/UL VITAMIN B 12 AND FOLIC [id number] 00:00:00* Test Item Value Reference Range Interpretation Comme nts VITAMIN B-12 (test code = 2840) 764 PG/ML FOLIC ACID (test code = 2695) 18.6 NG/ML VITAMIN B 12 AND FOLIC [id number] 00:00:00* Test Item Value Reference Range Interpretation Comme [facility] VITAMIN B-12 (test code = 2840) 764 PG/ML FOLIC ACID (test code = 2695) 18.6 NG/ML [id number] 00:00:00* Test Item Value Reference Range Interpretation Comme [facility] FERRITIN (test code = 2075) 36 NG/ML RETICULOCYTE [id number] 00:00:00* Test Item Value Reference Range Interpretation Comme [facility] RETICULOCYTE COUNT (test code = 1018) 0.9 %
[2024-11-01] MEDS ORDERED: NA CHLORIDE 0.9% 1,000 ML ONE (12:38)
[2024-11-01] MEDS ORDERED: NA CHLORIDE 0.9% 500 ML ONE (12:38)
[2024-11-01] MEDS ORDERED: NA CHLORIDE 0.9% 100 ML ONE (12:38)
[2024-11-01 12:59] LABS: Absolute Eosinophils 0.1 K/uL (0-0.5); Absolute Lymphocytes (CBC) 2.6 K/uL (0.7-4.9); Absolute Monocytes 0.3 K/uL (0.1-1.3); Basophils % 0.5 % (0-1.3); Eosinophils % 0.9 % (0-4.4); Hematocrit 43.1 % (36.0-45.0); Hemoglobin 15.7 g/dL (12.0-15.0); Lymphocytes % 37.3 % (15.3-44.8); MCH 31.3 pg (27.0-35.0); MCHC 36.5 g/dL (32.0-36.0); MCV 85.9 fL (80-100); MPV 9.3 fL (7.6-11.3); Monocytes % 4.7 % (3.3-12.3); Neutrophils % 56.6 % (41.7-73.7); Nucleated Red Blood Cells % 0.1 % (0-0); Platelets 262 thou/uL (152-406); RBC Red Blood Cell Count 5.01 M/uL (3.86-4.86)
[2024-11-01 13:06] LABS: PT Prothrombin Time 11.3 SECONDS (10-13.0); PTT, Activated Partial Thromb 33.3 SECONDS (27.2-37.4); Protime INR 0.99
--- NOTE | 2024-11-01 13:11 | RAD REPORT ---
EXAMINATION: ONE VIEW CHEST XR CLINICAL INDICATION: hyperglycemia TECHNIQUE: Frontal chest projection is submitted. Examination is limited by patient positioning and t echnique. COMPARISON: 08/25/2022 FINDINGS: The lungs are well inflated and clear. The heart is normal in size. No displaced fractures identified . IMPRESSION: No acute intrathoracic abnormalities.
[2024-11-01 13:22] LABS: ALT/SGPT 25 U/L (13-56); AST/SGOT 12 U/L (15-37); Albumin 3.6 g/dL (3.4-5.0); Albumin/Globulin Ratio 0.9 (1.1-1.8); Alkaline Phosphatase 87 U/L (45-117); Anion Gap 10.9 mEq/L (5.0-15.0); BUN Blood Urea Nitrogen 15 mg/dL (7-18); Bicarbonate 28 mEq/L (21-32); Bilirubin Total 1.7 mg/dL (0.2-1.0); Glomerular Filtration Rate 110 ml/min (=/>90); Glucose Level 347 mg/dL (74-106); Potassium 3.9 mEq/L (3.5-5.1); Protein, Total 7.6 g/dL (6.4-8.2); Sodium Level 132 mEq/L (136-145)
[2024-11-01 13:26] LABS: Blood Gas Oxyhemoglobin 94.9 % (94-97); Blood Gas THB 13.3 g/dl (12-18); Blood O2 Saturation 97.8 % (92-98.5)
[2024-11-01 13:27] LABS: Troponin High Sensitivity < 3.0 pg/mL (<58.9)
--- NOTE | 2024-11-01 13:40 | ER ---
Nurse's Notes [facility] Name: Jodee Rae Age: 44 yrs Sex: Female : 1980 Arrival Date: 11/01/2024 Time: 11:51 Bed 3 Private MD: Diagnosis: Hyperglycemia, unspecified Presentation: 11/01 12:09 Chief complaint: Patient states: Abdominal pain and low back pain for 5-6 days. + ll1 constipation. No fever. Coronavirus screen: Client denies travel out of the [place] in the last 14 days. At this time, the client does not indicate any symptoms associated with coronavirus-19. Ebola Screen: Patient denies travel to an Ebola-affected area in the 21 days before illness onset. Initial Sepsis Screen: Does the patient meet any 2 criteria? No. Patient's initial sepsis screen is negative. Does the patient have a suspected source of infection? No. Patient's initial sepsis screen is negative. Risk Assessment: Do you want to hurt yourself or someone else? Patient reports no desire to harm self or others. Onset of symptoms was October 26, 2024. 12:09 Method Of Arrival: Wheelchair ll1 12:09 Acuity: GERTRUDIS 2 ll1 Triage Assessment: 12:11 General: Appears distressed, uncomfortable, ill, Behavior is calm, cooperative, ll1 appropriate for age, Reports feeling ill for fatigue for. Pain: Complains of pain in abdomen Pain currently is 8 out of 10 on a pain scale. Quality of pain is described as aching. Neuro: Reports a syncopal episode weakness. GI: Reports lower abdominal pain, constipation. Historical: - Allergies: 12:08 Lisinopril; cough; ll1 12:08 [place] Carbonate; ll1 12:08 PENICILLINS (Upset stomach); ll1 - PMHx: 12:08 Asthma; Depression; Diabetes - IDDM; Bipolar disorder; ll1 - PSHx: 12:08 section; hand; tubal ligation; ll1 - Immunization history:: Adult Immunizations up to date. - Infectious Disease History:: Denies. - Social history:: Smoking status: Patient reports the use of cigarette tobacco products, smokes one-half pack cigarettes per day, Reported history of juuling and/or vaping. - Family history:: not pertinent. Screenin:[facility] Fall Risk Assessment (Adult) History of falling in the last 3 months, kn including since admission Yes- fall prone (multiple falls) (3 pts) Confusion or Disorientation No (0 pts) Intoxicated or Sedated No (0 pts) Impaired Gait Yes (1 pt) Mobility Assist Device Used Yes (1 pt) Altered Elimination Yes (1 pt) Score/Fall Risk Level 3 or more points = High Risk Oriented to surroundings, Maintained a safe environment, Educated pt \\T\\ family on fall prevention, incl call for assistance when getting out of bed, Assessed \\T\\ reinforced patient's understanding of fall precautions, Hourly rounding (assess needs \\T\\ fall precautionary measures) done, Used ambulatory aids as needed (educated on \\T\\ assisted with), Offered frequent toileting (1:1 observation), Remained with patient while ambulating, Utilized family, sitter, or virtual plug making operator as indicated. 12:47 Abuse screen: Denies threats or abuse. Denies injuries from another. Nutritional kn screening: No deficits noted. Tuberculosis screening: No symptoms or risk factors identified. Assessment: 12:30 Reassessment: pt w/c to room. c/c: abd pain and back pain, lethargy x 5 days. pt states kn she has been pff her insulin x 1 year. Bmg/dl \\T\\ bedside. pt is awake/lethargic, oriented x 4, placed on java security engineer, bp cuff, pulse ox, MD krissy at bedside, new orders noted and implemented, will continue to monitor pt. EKG completed. 13:16 Reassessment: pt requesting her "son to climb in bed with me, because I cannot sleep kn without him in bed with me." pt states she wants to go home because her son cannot get in the bed with her, will clarify with JET. aware. informed pt of her condition and reason why she should stay. pt asked to speak to MD. Vital Signs: 12:09 BP 85 / 60; Pulse 112; Resp 17; Temp 97.2; Pulse Ox 100% ; Weight 52.62 kg; Height 5 ll1 ft. 1 in. ; Pain 8/10; 12:18 BP 129 / 96; Pulse 107; Resp 16; Pulse Ox 100% ; kn 13:15 BP 142 / 97; Pulse 98; Resp 19; Pulse Ox 100% ; jl7 12:09 Body Mass Index 21.92 (52.62 kg, 154.94 cm) ll1 12:09 Pain Scale: Adult ll1 ED Course: 11:55 Patient arrived in ED. gl 11:58 Jaswant Dougherty MD is Attending Physician. rt 12:11 Triage completed. ll1 12:15 First set of blood cultures drawn. nh2 12:16 Arm band placed on Patient placed in an exam room, on a stretcher. ss 12:29 SOUMYA ZHU, RN is Primary Nurse. kn 12:30 Patient has correct armband on for positive identification. Placed in gown. Bed in low kn position. Call light in reach. Side rails up X2. Provided Education on: use of call light, plan of care, pt verbalizes understanding. 12:30 No provider procedures requiring assistance completed. Inserted saline lock: 22 gauge kn in left antecubital area, using aseptic technique. 12:30 Inserted saline lock: 20 gauge in right antecubital area, using aseptic technique. kn 12:30 Second set of blood cultures drawn. nh2 12:47 Inserted. kn 13:01 Chest Single View XRAY In Process Unspecified. EDMS 13:48 IV discontinued, intact, bleeding controlled, No redness/swelling at site. Pressure jl7 dressing applied. Administered Medications: 12:45 Drug: NS 0.9% IV (30 ml/kg) 30 ml/kg IV at bolus once; Sepsis Protocol; to be given as kn a bolus over 90 minutes Route: IV; Rate: bolus; Site: right antecubital; 13:45 Follow up: Response: No adverse reaction; IV Status: Order to discontinue infusion kn Medication: 12:30 VIS not applicable for this client. kn Outcome: 13:39 Discharge ordered by MD. rt 13:48 AMA AMA form signed jl7 13:48 Condition: unchanged 13:48 Discharge instructions given to patient, Instructed on the need for admit, Demonstrated understanding of Pt refused to stay at this time. 13:49 Patient left the ED. jl7 Signatures: Dispatcher [employer] EDMS Daina Sarah RN RN ss Gurdeep Kat RN RN jl7 Akash Yi RN RN [facility] Jaswant Dougherty MD MD rt SOUMYA ZHU, FRANKIE Esquivel Jr, Gayle Duval, Reg Reg gl Corrections: (The following items were deleted from the chart) 12:11 12:09 BP 88 / ???; Pulse 112bpm; Resp 17bpm; Pulse Ox 100%; Temp 97.2F; 52.62 kg; ll1 Height 5 ft. 1 in.; BMI: 21.9; Pain 8/10, Adult; ll1
--- NOTE | 2024-11-01 13:40 | EDPHYS ---
Physician Documentation [facility] Name: Jodee Rae Age: 44 yrs Sex: Female : 1980 Arrival Date: 11/01/2024 Time: 11:51 Bed 3 Private MD: ED Physician Jaswant Dougherty HPI: 11/01 13:41 This 44 yrs old Female presents to ER via Wheelchair with complaints of rt Abdominal Pain, Back Pain. 13:41 Patient presents to the ED with 5 days of a right-sided, lower back pain. Denies rt discrete injury. Patient states that she has not been on insulin for over a year, states that her glucose usually reads high but she has not checked it in some time. States that she has significant unintentional weight loss and is not able to eat or drink anything. Denies other acute complaints at this time, symptoms are moderate in severity, no other aggravating or alleviating factors.. Historical: - Allergies: 12:08 Lisinopril; cough; ll1 12:08 [place] Carbonate; ll1 12:08 PENICILLINS (Upset stomach); ll1 - PMHx: 12:08 Asthma; Depression; Diabetes - IDDM; Bipolar disorder; ll1 - PSHx: 12:08 section; hand; tubal ligation; ll1 - Immunization history:: Adult Immunizations up to date. - Infectious Disease History:: Denies. - Social history:: Smoking status: Patient reports the use of cigarette tobacco products, smokes one-half pack cigarettes per day, Reported history of juuling and/or vaping. - Family history:: not pertinent. ROS: 13:41 Cardiovascular: Negative for chest pain, palpitations, and edema, Respiratory: Negative rt for shortness of breath, cough, wheezing, and pleuritic chest pain, MS/Extremity: Negative for injury and deformity, Skin: Negative for injury, rash, and discoloration, 13:41 Constitutional: Positive for fatigue, malaise, weight loss, 13:41 Abdomen/GI: Positive for nausea and vomiting, 13:41 Back: Positive for pain at rest, Negative for injury or acute deformity, Exam: 13:41 Head/Face: Normocephalic, atraumatic. Chest/axilla: Normal chest wall appearance and rt motion. Nontender with no deformity. No lesions are appreciated. Cardiovascular: Regular rate and rhythm with a normal S1 and S2. No gallops, murmurs, or rubs. Normal PMI, no JVD. No pulse deficits. Respiratory: Lungs have equal breath sounds bilaterally, clear to auscultation and percussion. No rales, rhonchi or wheezes noted. No increased work of breathing, no retractions or nasal flaring. Abdomen/GI: Soft, non-tender, with normal bowel sounds. No distension or tympany. No guarding or rebound. No evidence of tenderness throughout. Skin: Warm, dry with normal turgor. Normal color with no rashes, no lesions, and no evidence of cellulitis. MS/ Extremity: Pulses equal, no cyanosis. Neurovascular intact. Full, normal range of motion. 13:41 Constitutional: The patient appears Ill-appearing 13:41 ENT: Dry mucous membranes. 13:49 ECG was reviewed by the Attending Physician. rt Vital Signs: 12:09 BP 85 / 60; Pulse 112; Resp 17; Temp 97.2; Pulse Ox 100% ; Weight 52.62 kg; Height 5 ll1 ft. 1 in. ; Pain 8/10; 12:18 BP 129 / 96; Pulse 107; Resp 16; Pulse Ox 100% ; kn 13:15 BP 142 / 97; Pulse 98; Resp 19; Pulse Ox 100% ; jl7 12:09 Body Mass Index 21.92 (52.62 kg, 154.94 cm) ll1 12:09 Pain Scale: Adult ll1 MDM: 12:13 Medical Screening Exam initiated rt 13:41 Differential diagnosis: Hyperglycemia, DKA, intravascular volume depletion, sepsis. rt Data reviewed: vital signs, nurses notes, lab test result(s), EKG. I considered the following discharge prescriptions or medication management in the emergency department Medications were administered in the Emergency Department. See MAR. Care significantly affected by the following chronic conditions: Diabetes. Refusal of service: The patient/guardian displays adequate decision making capability and despite a detailed discussion of alternatives, benefits, risks, and consequences refuses: Admission to the hospital for further work-up and treatment, Patient stated that she wished to leave. Informed patient that her workup was not complete, that she is ill, likely to get sicker. She understands risk of leaving including worsening condition, . She understands the risks and has decision-making capacity. She understands that she may return anytime if she develops worsening symptoms.. 11/01 12:21 Order name: Blood Culture Adult (2) rt 11/01 12:21 Order name: CBC with Diff rt 11/01 12:21 Order name: CMP; Complete Time: 13:36 rt 11/01 12:21 Order name: Lactate w/ 2H reflex if indic.; Complete Time: 13:36 rt 11/01 12:21 Order name: Protime (+inr); Complete Time: 13:13 rt 11/01 12:21 Order name: Ptt, Activated; Complete Time: 13:13 rt 11/01 12:21 Order name: Troponin High Sensitivity; Complete Time: 13:36 rt 11/01 12:21 Order name: ABG; Complete Time: 13:36 rt 11/01 12:21 Order name: Test, Serum; Complete Time: 13:36 rt 11/01 12:31 Order name: Glucose, Ancillary Testing; Complete Time: 13:05 EDMS 11/01 12:21 Order name: Chest Single View XRAY; Complete Time: 13:13 rt 11/01 12:21 Order name: Accucheck; Complete Time: 12:23 rt 11/01 12:21 Order name: Cardiac monitoring; Complete Time: 12:35 rt 11/01 12:21 Order name: EKG - Nurse/Tech; Complete Time: 12:23 rt 11/01 12:21 Order name: IV Saline Lock - Large Bore; Complete Time: 12:36 rt 11/01 12:21 Order name: Labs collected and sent; Complete Time: 12:36 rt 11/01 12:21 Order name: O2 Per Protocol; Complete Time: 12:23 rt 11/01 12:21 Order name: O2 Sat Monitoring; Complete Time: 12:23 rt 11/01 12:21 Order name: Vital Signs; Complete Time: 12:23 rt EC:49 Rate is 109 beats/min. Rhythm is regular, Sinus tachycardia with No ectopy. QRS [place] is rt Normal. [place] interval is normal. QRS interval is normal. QT interval is normal. No Q waves. T waves are Normal. No ST changes noted. Administered Medications: 12:45 Drug: NS 0.9% IV (30 ml/kg) 30 ml/kg IV at bolus once; Sepsis Protocol; to be given as kn a bolus over 90 minutes Route: IV; Rate: bolus; Site: right antecubital; 13:45 Follow up: Response: No adverse reaction; IV Status: Order to discontinue infusion kn Disposition Summary: 11/01/24 13:39 Discharge Ordered Notes: Location: Home rt Problem: an ongoing problem rt Symptoms: are unchanged rt Condition: Undetermined rt Diagnosis - Hyperglycemia, unspecified rt Followup: rt - With: Private Physician - When: 2 - 3 days - Reason: Discharge Instructions: - Discharge Summary Sheet rt - Hyperglycemia rt Forms: - Medication Reconciliation Form rt - Antibiotic Education rt - Prescription Opioid Use rt - Patient Portal Instructions rt - Leadership Thank You Letter rt Critical care time excluding procedures: 13:41 Critical care time: Bedside Care: 30 minutes. Total time: 30 minutes rt Signatures: Dispatcher [employer] EDAkash Lee RN RN ll1 Jaswant Dougherty MD MD rt SOUMYA ZHU RN RN kn Corrections: (The following items were deleted from the chart) 12:22 12:21 BLOOD CULTURE*+BA.LAB.BRZ ordered. EDMS EDMS 12: 12:21 CBC+H.LAB.BRZ ordered. EDMS EDMS 12: 12:21 COMPREHENSIVE METABOLIC PANEL+C.LAB.BRZ ordered. EDMS EDMS 12: 12:21 LACTATE+C.LAB.BRZ ordered. EDMS EDMS 12: 12:21 PROTIME (+INR)+COAG.LAB.BRZ ordered. EDMS EDMS 12: 12:21 PTT, ACTIVATED+COAG.LAB.BRZ ordered. EDMS EDMS 12: 12:21 Troponin High Sensitivity+C.LAB.BRZ ordered. EDMS EDMS 12: 12:21 UA Rfx Bon Cult if indicated+U.LAB.BRZ ordered. EDMS EDMS 12: 12:21 TEST, SERUM+SC.LAB.BRZ ordered. EDMS EDMS 12: 12:22 Chest Single View+RAD.RAD.BRZ ordered. EDMS EDMS 12: 12:22 Arterial Blood Gas+RC.LAB.BRZ ordered. EDMS EDMS 12: 12:22 Abdomen Pelvis W Con+CT.RAD.BRZ ordered. EDMS EDMS
[2024-11-01 13:53] VITALS: TEMP 97.2; O2SAT 100
[2024-11-01 13:57] VITALS: BP 142/97
[2024-11-01 14:29] LABS: Blood Morphology Comment NOT SEEN (NOT SEEN); Platelet Estimate ADEQ; White Blood Cell Scan OK (OK)
--- NOTE | 2024-11-02 11:15 | EKG ---
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
== END 2024-11-01 13:49 | disposition home or self-care (01) ==
LOC: ER 11:51
DX: E11.65 Type 2 diabetes mellitus with hyperglycemia (principal); R10.31 Right lower quadrant pain; F17.210 Nicotine dependence, cigarettes, uncomplicated
CPT/HCPCS: 96365; 93005; 87040 ×2; 85025; 36415; 84703; 85610; 82947; 83605; 85730; 84484; 80053; 71045; 82805; 99284; 36600; J7040; J7030